=== PATIENT | female | born 1950 | race Caucasian/White ===

== ENCOUNTER 2016-07-13 06:11 | Inpatient (IN) | payer OTHER ==
[~2016-07-13] VITALS: Ht 152.4 cm; Wt 75.0 kg
[~2016-07-13 06:11] MED LIST: ANT PO; GLCSR/500 PO; LISI20TA55 PO; NEPA0.6D; OFLO0.3S4 OPL; OMEP20CA9 PO; PRED1SUS3
[2016-07-13] MEDS ORDERED: SODIUM CHLORIDE 0.9% 1000ML 1,000 ML IV ONE (06:42)
[2016-07-13] MEDS ORDERED: ONDANSETRON INJ 2 MG/ML 2 ML VIAL IV STA (06:42)
[2016-07-13] MEDS ORDERED: SODIUM CHLORIDE 0.9% 1000ML 1,000 ML IV STA (06:42)
[2016-07-13] MEDS ORDERED: MoRPHine SULFATE 2 MG/ML CARP IV STA ×2 (06:42→09:03)
[2016-07-13] MEDS ORDERED: AFLI2INJ OP (06:56)
[2016-07-13] MEDS ORDERED: LISI40TA PO (06:56)
[2016-07-13] MEDS ORDERED: ATOR-24 PO (06:56)
[2016-07-13] MEDS ORDERED: GLIP2.5T11 PO (06:56)
--- NOTE | 2016-07-13 06:59 | EMERGENCY ROOM VISIT NOTE ---
History Report prepared by Sandra: Rosina Lemons Under the Supervision of: Dr. Anam Martel M.D. First contact with patient: 06:30 Chief Complaint: ABDOMINAL PAIN Stated Complaint: SEVERE ABDOMINAL PAIN,VOMITING,GALL STONES? History of Present Illness The patient is a 65 year old female who presents to the Emergency Room with complaints of persistent abdominal pain starting last night. The pain is present in the center of her abdomen. She rates her discomfort as a 10/10 in severity. She is nauseous and vomited 4-5 times last night which she states had a bad taste. She had some diarrhea, but mentions that her medications often cause loose stools. She reports chills. She denies any chest pain, SOB, fever, pain or swelling in the legs, or urinary symptoms. She denies any recent falls or trauma. She has had gallbladder issues before and believes her symptoms might be due to her gallbladder. She denies alcohol use. She has had a hysterectomy. She denies having had any other abdominal surgeries. She still has her appendix. Denies back pain. Source of History: patient, family Onset: last night Position: abdomen (epigastric) Symptom Intensity: 10/10 Timing: other (persistent) Associated Symptoms: + diarrhea, + nausea, + vomiting, No SOB, No chest pain , No fevers, No urinary symptoms Note: Pt denies pain or swelling in the legs. Review of Systems See HPI for pertinent positives & negatives. A total of 10 systems reviewed and were otherwise negative. Past Medical & Surgical Medical Problems: (1) DM type 2 (diabetes mellitus, type 2) (2) Dyslipidemia (3) HTN (hypertension) (4) Pyelonephritis Surgical Problems: (1) History of abdominal hysterectomy (2) History of cataract surgery (3) History of hysterectomy Old medical records were reviewed. Nurse's notes were reviewed and I agree with. Family History Diabetes mellitus Gallbladder disease Heart disease Hypertension Social History Smoking Status: Never Smoker Alcohol Use: none Drug Use: none Housing Status: lives with family Occupation Status: retired Current/Historical Medications Scheduled Amlodipine Besylate (Amlodipine Besylate), 2.5 MG PO DAILY Atorvastatin (Lipitor), 40 MG PO DAILY Glipizide (Glipizide Er), 1 TAB PO DAILY Lisinopril (Zestril), 40 MG PO QAM Metformin HCl (Metformin HCl ER), 500 MG PO HS Travoprost (Travatan Z), 1 DROPS OP HS Allergies Coded Allergies: BEE STING (Verified Allergy, Unknown, SWELLING, 07/13/16) Sulfa Antibiotics (Verified Allergy, Unknown, From a b/p med (told never take sulfa), RASH, 07/13/16) Physical Exam Vital Signs Date Time Temp Pulse Resp B/P Pulse Ox O2 Delivery O2 Flow Rate FiO2 07/13/16 09:10 96 Room Air 07/13/16 08:58 88 16 161/74 96 07/13/16 08:02 92 22 172/77 92 Room Air 07/13/16 07:20 92 12 173/78 96 Room Air 07/13/16 06:56 92 07/13/16 06:14 36.9 86 20 159/75 97 Room Air Physical Exam General: Older female. Well developed well nourished in no acute distress, breathing comfortably on room air. Normal speech HEENT: Normal cephalic atraumatic. Pupils are equal round and reactive to light. Extraocular movements are intact. Oropharynx is pink with moist mucous membranes. No swelling of the mouth lips or tongue. Neck: Supple with a midline trachea. No meningeal signs or stiffness, no JVD or bruits. No Stridor. Chest: Clear to auscultation bilaterally. No wheezes or rhonchi. No increased work of breathing. Heart: regular rate and rhythm. Abdomen: Soft, nondistended without rebound guarding or rigidity. Minimally tender in the epigastric area. Extremities: No cyanosis clubbing or edema. No calf tenderness or assymetry Spine/Back. Non tender to palpation. No CVA tenderness Skin: Good turgor without rashes. Neurologic exam: Cranial nerves two through 12 are intact. Motor and sensation are intact and symmetrical throughout. Medical Decision & Procedures ER Provider Diagnostic Interpretation: Radiology results as stated below per my review and radiologist interpretation: ABDOMEN AND PELVIS CT WITHOUT CONTRAST CT DOSE: 405.34 mGy.cm HISTORY: Abdominal pain. Vomiting. TECHNIQUE: Multiaxial CT images of the abdomen and pelvis were performed without contrast. COMPARISON STUDY: Abdomen and pelvis CT 12/29/2014. FINDINGS: Mild dependent changes seen within the left lung base. No pneumoperitoneum. No pneumatosis. Multiple small gallstones. The unenhanced liver, spleen, adrenal glands, pancreas are unremarkable. No significant retroperitoneal lymphadenopathy. Normal right kidney. The bladder is unremarkable. No renal stones. Mild left hydronephrosis. There is extensive left perinephric fat stranding/edema. Suboptimal evaluation for bowel pathology due to the lack of intravenous and oral contrast. However, there is no definite bowel wall thickening or obstruction. IMPRESSION: 1. Extensive left perinephric fat stranding/edema with associated mild left hydronephrosis. There are no renal or ureteral stones identified. There are no bladder stones. Therefore, this could be due to a pyelonephritis, recently passed stone, or an occult obstructing lesion. 2. Normal right kidney. 3. Suboptimal evaluation for bowel pathology due to the lack of intravenous and oral contrast. However, there is no definite bowel wall thickening or obstruction. 4. Cholelithiasis. Electronically signed by: Federico Medellin M.D. 07/13/2016 8:17 AM Dictated Date/Time: 07/13/2016 8:11 AM Right upper quadrant ultrasound GALLBLADDER-ABD LIMITED CLINICAL HISTORY: eval for GB disease nausea. Vomiting. TECHNIQUE: Ultrasound COMPARISON STUDY: 12/29/2014 FINDINGS: Trace gallbladder sludge. No shadowing gallstones. Gallbladder wall 2 mm. Common bile duct 4 mm. Liver and pancreas are uniform. Right kidney is negative for hydronephrosis. IMPRESSION: Small amount of gallbladder sludge. Normal caliber bile duct. Otherwise negative study. Electronically signed by: Sergio Watkins M.D. 07/13/2016 9:55 AM Dictated Date/Time: 07/13/2016 9:50 AM Laboratory Results Test 07/13/16 06:03 07/13/16 06:30 07/13/16 07:11 Immature Granulocyte % (Auto) 0.3 % White Blood Count 15.94 K/uL (4.8-10.8) Red Blood Count 3.84 M/uL (4.2-5.4) Hemoglobin 11.0 g/dL (12.0-16.0) Hematocrit 32.3 % (37-47) Mean Corpuscular Volume 84.1 fL (80-100) Mean Corpuscular Hemoglobin 28.6 pg (25-34) Mean Corpuscular Hemoglobin Concent 34.1 g/dl (32-36) Platelet Count 227 K/uL (130-400) Mean Platelet Volume 9.0 fL (7.4-10.4) Neutrophils (%) (Auto) 89.4 % Lymphocytes (%) (Auto) 4.2 % Monocytes (%) (Auto) 6.0 % Eosinophils (%) (Auto) 0.0 % Basophils (%) (Auto) 0.1 % Neutrophils # (Auto) 14.26 K/uL (1.4-6.5) Lymphocytes # (Auto) 0.67 K/uL (1.2-3.4) Monocytes # (Auto) 0.95 K/uL (0.11-0.59) Eosinophils # (Auto) 0.00 K/uL (0-0.5) Basophils # (Auto) 0.02 K/uL (0-0.2) Immature Granulocyte # (Auto) 0.04 K/uL (0.00-0.02) Urine Color YELLOW Urine Appearance CLOUDY (CLEAR) Urine pH 5.5 (4.5-7.5) Urine Specific [place] 1.016 (1.000-1.030) Urine Protein TRACE (NEG) Urine Glucose (UA) 1+ (NEG) Urine Ketones 2+ (NEG) Urine Occult Blood 2+ (NEG) Urine Nitrite NEG (NEG) Urine Bilirubin NEG (NEG) Urine Urobilinogen NEG (NEG) Urine Leukocyte Esterase MODERATE (NEG) Urine WBC (Auto) >30 /hpf (0-5) Urine RBC (Auto) 10-30 /hpf (0-4) Urine Hyaline Casts (Auto) 1-5 /lpf (0-5) Urine Epithelial Cells (Auto) >30 /lpf (0-5) Urine Bacteria (Auto) 4+ (NEG) Total Bilirubin 0.5 mg/dl (0.2-1) Direct Bilirubin 0.2 mg/dl (0-0.2) Aspartate Amino Transf (AST/SGOT) 15 U/L (15-37) Alanine Aminotransferase (ALT/SGPT) 18 U/L (12-78) Alkaline Phosphatase 75 U/L (45-117) Total Protein 7.8 gm/dl (6.4-8.2) Albumin 3.7 gm/dl (3.4-5.0) Lipase 303 U/L (73-393) Bedside Troponin I 0.000 ng/ml (0-0.045) Laboratory studies as stated above per my review. Medications Administered Medications (Trade) Dose Ordered Sig/Hollis Route Start Time Stop Time Status Last Admin Dose Admin Sodium Chloride 1,000 ml @ 999 mls/hr Q1H1M STAT IV 07/13/16 06:42 07/13/16 07:42 DC 07/13/16 07:06 999 MLS/HR Sodium Chloride (Nss 1000ml) 1,000 ml @ 150 mls/hr Q6H40M ONCE IV 07/13/16 06:42 07/13/16 11:29 DC 07/13/16 07:07 150 MLS/HR Ondansetron HCl (Zofran Inj) 4 mg NOW STAT IV 07/13/16 06:42 07/13/16 06:45 DC 07/13/16 07:08 4 MG Morphine Sulfate (MoRPHine SULFATE INJ) 2 mg NOW STAT IV 07/13/16 06:42 07/13/16 06:45 DC 07/13/16 07:08 2 MG Levofloxacin (Levaquin / D5W) 750 mg NOW STAT IV 07/13/16 08:33 07/13/16 08:36 DC 07/13/16 10:50 750 MG Morphine Sulfate (MoRPHine SULFATE INJ) 2 mg NOW STAT IV 07/13/16 09:03 07/13/16 09:04 DC 07/13/16 09:11 2 MG ECG Indication: abdominal pain Rate (beats per minute): 87 Rhythm: normal sinus Findings: no acute ischemic change, no ectopy Comparison ECG Date: Change: no significant change ED Course 0632: Past medical records reviewed. The patient was evaluated in room A3, and a complete history and physical examination were performed. 0642: Morphine Sulfate 2 mg IV, Zofran Inj 4 mg IV, NSS 1000 ml @ 150 mls/hr IV , NSS 1000 ml @ 999 mls/hr IV. 0714: Upon reevaluation, the patient is resting comfortably. 0757: I reevaluated the patient. She is resting comfortably. 0830: I reevaluated the patient. She is resting comfortably. I discussed the results and treatment plan with the patient. She verbalized agreement of the treatment plan. The patient will be evaluated for further management. 0833: Levofloxacin 750 mg IV. 0846: I discussed the patient's case with MODESTO Rose - internal medicine. The patient will be evaluated for further management. 0903: Morphine Sulfate 2 mg IV. Medical Decision Differential diagnoses: gallbladder disease, cardiac disease, viral illness, infection, electrolyte or metabolic abnormality. This patient comes in as described above. She was placed in room A3. She is here for treatment and evaluation of epigastric abdominal pain and nausea vomiting and diarrhea. She has a history of gallstones according to the patient. IV access established EKG was obtained and multiple blood tests was obtained. She was hydrated with IV normal saline. She was given Zofran 4 mg IV and morphine IV as well. She was reassessed frequently. EKG does not suggest acute coronary syndrome or ischemia. Troponin is normal. White count is moderately elevated. She is mildly anemic. BUN and creatinine are also mild to moderately elevated compared to baseline. Some this may be prerenal/ dehydration. I did a CAT scan of her abdomen and pelvis. She has hydronephrosis of the left kidney. There is no stone seen and could be related to past stone or an infection. In light of this, she was given IV antibiotics and IV hydration. I do think she needs to be admitted BUN and creatinine are mildly elevated and she also has a white count. I went back and reassessed her and she has no flank tenderness when I tap on her kidney and she has minimal to none urinary symptoms. She is feeling much better but given her symptoms I do think she needs to be admitted blood and urine cultures have been obtained. I did consult the [facility] hospitalist and she will be admitted for further treatment and evaluation Consults Time Called: 0832 Consulting Physician: Ani Jacobo PA-C [facility] - internal medicine Returned Call: [phone] I discussed the patient's case with her. The patient will be evaluated for further management. Impression Primary Impression: Pyelonephritis Scribe Attestation The scribe's documentation has been prepared under my direction and personally reviewed by me in its entirety. I confirm that the note above accurately reflects all work, treatment, procedures, and medical decision making performed by me. Departure Information Dispostion Being Evaluated By Hospitalist Ghislaine Palomo D.O. (PCP) Patient Instructions My [facility]
[2016-07-13 07:01] LABS: BASO % 0.1 %; BASO ABS # 0.02 K/uL (0-0.2); COMPLETE YES; HEMATOCRIT 32.3 % (37-47); IG% 0.3 %; LYMPH % 4.2 %; LYMPH ABS # 0.67 K/uL (1.2-3.4); MEAN CELL VOLUME 84.1 fL (80-100); MEAN CORPUSCULAR HEMOGLOBIN 28.6 pg (25-34); MEAN CORPUSCULAR HGB CONC 34.1 g/dl (32-36); NEUT % 89.4 %; PLATELET COUNT 227 K/uL (130-400); RED BLOOD COUNT 3.84 M/uL (4.2-5.4); WHITE BLOOD COUNT 15.94 K/uL (4.8-10.8)
[2016-07-13 07:02] LABS: BUN/CREATININE RATIO 21.5 (10-20); CREATININE 1.8 mg/dl (0.60-1.20)
[2016-07-13 08:11] LABS: URINE APPEARANCE CLOUDY (CLEAR); URINE BILIRUBIN NEG (NEG); URINE COLOR YELLOW; URINE EPITHELIAL CELL AUTO >30 /lpf (0-5); URINE NITRITE NEG (NEG); URINE PH 5.5 (4.5-7.5); URINE SPECIFIC GRAVITY 1.016 (1.000-1.030); UROBILINOGEN NEG (NEG)
--- NOTE | 2016-07-13 08:19 | DIAGNOSTIC IMAGING REPORT ---
ABDOMEN AND PELVIS CT WITHOUT CONTRAST CT DOSE: 405.34 mGy.cm HISTORY: Abdominal pain. Vomiting. TECHNIQUE: Multiaxial CT images of the abdomen and pelvis were performed without contrast. COMPARISON STUDY: Abdomen and pelvis CT 12/29/2014. FINDINGS: Mild dependent changes seen within the left lung base. No pneumoperitoneum. No pneumatosis. Multiple small gallstones. The unenhanced liver, spleen, adrenal glands, pancreas are unremarkable. No significant retroperitoneal lymphadenopathy. Normal right kidney. The bladder is unremarkable. No renal stones. Mild left hydronephrosis. There is extensive left perinephric fat stranding/edema. Suboptimal evaluation for bowel pathology due to the lack of intravenous and oral contrast. However, there is no definite bowel wall thickening or obstruction. IMPRESSION: 1. Extensive left perinephric fat stranding/edema with associated mild left hydronephrosis. There are no renal or ureteral stones identified. There are no bladder stones. Therefore, this could be due to a pyelonephritis, recently passed stone, or an occult obstructing lesion. 2. Normal right kidney. 3. Suboptimal evaluation for bowel pathology due to the lack of intravenous and oral contrast. However, there is no definite bowel wall thickening or obstruction. 4. Cholelithiasis. Electronically signed by: Federico Medellin M.D. 07/13/2016 8:17 AM Dictated Date/Time: 07/13/2016 8:11 AM
[2016-07-13 08:20] LABS: MANUAL MICROSCOPIC REQUIRED? NO; REVIEW REQ? NO
[2016-07-13] MEDS ORDERED: LEVAQUIN 750MG / 150ML D5W IV STA (08:33)
[2016-07-13 09:10] VITALS: O2SAT 96; Ht 152.4 cm; Wt 75.0 kg
[2016-07-13] MEDS ORDERED: NRV5 PO (09:50)
[2016-07-13] MEDS ORDERED: TRAV0.00 OP (09:50)
--- NOTE | 2016-07-13 09:57 | DIAGNOSTIC IMAGING REPORT ---
Right upper quadrant ultrasound GALLBLADDER-ABD LIMITED CLINICAL HISTORY: eval for GB disease nausea. Vomiting. TECHNIQUE: Ultrasound COMPARISON STUDY: 12/29/2014 FINDINGS: Trace gallbladder sludge. No shadowing gallstones. Gallbladder wall 2 mm. Common bile duct 4 mm. Liver and pancreas are uniform. Right kidney is negative for hydronephrosis. IMPRESSION: Small amount of gallbladder sludge. Normal caliber bile duct. Otherwise negative study. Electronically signed by: Sergio Watkins M.D. 07/13/2016 9:55 AM Dictated Date/Time: 07/13/2016 9:50 AM
[2016-07-13] MEDS: SODIUM CHLORIDE 0.9% 1000ML 1,000 ML IV SCH ×2 (10:00→15:17)
[2016-07-13] MEDS ORDERED: GLUCOSE 40% GEL 15 GM TUBE PO PRN (10:00)
[2016-07-13] MEDS ORDERED: GLUCAGON FOR INJ 1 MG VIAL SQ PRN (10:00)
[2016-07-13] MEDS ORDERED: GLUCOSE 10 TABS/TUBE PO PRN (10:00)
[2016-07-13] MEDS ORDERED: DEXTROSE 50% 50 ML SYR IV PRN (10:00)
[2016-07-13] MEDS ORDERED: LEVAQUIN~CONSULT PHARMACY PRN (10:20)
[2016-07-13 10:32] VITALS: BP 150/70; PULSE 87; TEMP 37.2; O2SAT 96
[2016-07-13] MEDS ORDERED: AMLODIPINE BESYLATE 5 MG TAB PO ONE (10:51)
[2016-07-13] MEDS: INSULIN ASPART 100 UNITS/ML 3 ML PEN SC SCH ×3 (11:00→21:33)
[2016-07-13] MEDS ORDERED: HydrALAZINE HCL 20 MG/ML VIAL IV. PRN (11:00)
--- NOTE | 2016-07-13 11:59 | History and Physical ---
History & Physical Date & Time of Service: Jul 13, 2016 at 10:55 Chief Complaint: Nausea, Vomiting, Diarrhea, Abdominal Pain Primary Care Physician: Ghislaine Hernandez D.O. History of Present Illness 65 year old female who presents to the ER with nausea, vomiting, diarrhea, and abdominal pain. Patient reports her symptoms her symptoms began last evening around 11pm. She reports she was woken from sleep. She had multiple episodes of vomiting and diarrhea. She denies hematemesis, coffee ground emesis, BRBRPR, or dark tarry stools. She reports developing mid and lower abdominal pain after multiple episodes of vomiting. She describes the pain as an ache. Pain is improved now. Patient reports feeling chilled but did not take her temperature and is afebrile in the ED. She denies back or flank pain. No dysuria or hematuria. She reports mild lightheadedness with standing, denies dizziness and syncopal events. No chest pain or shortness of breath. In the ER, patient WBC 15K, creat 1.8, U/A suggests UTI. HR is mildly tachycardic in the low 90s. BP is stable. CT was obtained that shows extensive left perinephric fat stranding/ edema with associated mild left hydronephrosis; could be due to a pyelonephritis , recently passed stone, or an occult obstructing lesion. Gallbladder US shows a small amount of gallbladder sludge, no evidence for acute cholecystitis. Patient was given IVF, Levaquin, morphine, and Zofran. Past Medical/Surgical History Medical Problems: (1) DM type 2 (diabetes mellitus, type 2) Status: Chronic (2) Dyslipidemia Status: Chronic (3) HTN (hypertension) Status: Chronic (4) Pyelonephritis Status: Resolved Surgical Problems: (1) History of abdominal hysterectomy Status: Resolved (2) History of cataract surgery Status: Chronic (3) History of hysterectomy Status: Chronic Social History Smoking Status: Never Smoker Drug Use: none Immunizations History of Influenza Vaccine: Yes Influenza Vaccine Date: Dec 28, 2015 History of Tetanus Vaccine?: Yes Tetanus Immunization Date: Jul 17, 2014 History of Pneumococcal: Yes Pneumococcal Date: Aug 06, 2014 Multi-Drug Resistant Organisms History of MDRO: No Allergies Coded Allergies: BEE STING (Verified Allergy, Unknown, SWELLING, 07/13/16) Sulfa Antibiotics (Verified Allergy, Unknown, From a b/p med (told never take sulfa), RASH, 07/13/16) Home Medications Scheduled Amlodipine Besylate (Amlodipine Besylate), 2.5 MG PO DAILY Atorvastatin (Lipitor), 40 MG PO DAILY Glipizide (Glipizide Er), 1 TAB PO DAILY Lisinopril (Zestril), 40 MG PO QAM Metformin HCl (Metformin HCl ER), 500 MG PO HS Travoprost (Travatan Z), 1 DROPS OP HS Review of Systems 10 point review of systems was completed with the pertinent positives and negatives noted per the HPI Physical Exam Vital Signs Date Time Temp Pulse Resp B/P Pulse Ox O2 Delivery O2 Flow Rate FiO2 07/13/16 09:10 96 Room Air 07/13/16 08:58 88 16 161/74 96 07/13/16 08:02 92 22 172/77 92 Room Air 07/13/16 07:20 92 12 173/78 96 Room Air 07/13/16 06:56 92 07/13/16 06:14 36.9 86 20 159/75 97 Room Air General Appearance: no apparent distress Head: normocephalic Eyes: normal inspection ENT: hearing grossly normal Neck: supple, no JVD Respiratory/Chest: lungs clear, normal breath sounds, no respiratory distress Cardiovascular: regular rate, rhythm, no edema, normal peripheral pulses Abdomen/GI: normal bowel sounds, soft, + tenderness (epigastric, LLQ ) Back: no CVA tenderness Extremities/Musculoskelatal: normal inspection, no calf tenderness Neurologic/Psych: no motor/sensory deficits, alert, normal mood/affect, oriented x 3 Skin: normal color, warm/dry Diagnostics Laboratory Results Results Past 24 Hours Test 07/13/16 06:03 07/13/16 06:30 07/13/16 07:11 07/13/16 09:44 Range/Units White Blood Count 15.94 4.8-10.8 K/uL Red Blood Count 3.84 4.2-5.4 M/uL Hemoglobin 11.0 12.0-16.0 g/dL Hematocrit 32.3 37-47 % Mean Corpuscular Volume 84.1 80-100 fL Mean Corpuscular Hemoglobin 28.6 25-34 pg Mean Corpuscular Hemoglobin Concent 34.1 32-36 g/dl Platelet Count 227 130-400 K/uL Mean Platelet Volume 9.0 7.4-10.4 fL Neutrophils (%) (Auto) 89.4 % Lymphocytes (%) (Auto) 4.2 % Monocytes (%) (Auto) 6.0 % Eosinophils (%) (Auto) 0.0 % Basophils (%) (Auto) 0.1 % Neutrophils # (Auto) 14.26 1.4-6.5 K/uL Lymphocytes # (Auto) 0.67 1.2-3.4 K/uL Monocytes # (Auto) 0.95 0.11-0.59 K/uL Eosinophils # (Auto) 0.00 0-0.5 K/uL Basophils # (Auto) 0.02 0-0.2 K/uL RDW Standard Deviation 40.5 36.4-46.3 fL RDW Coefficient of Variation 13.3 11.5-14.5 % Immature Granulocyte % (Auto) 0.3 % Immature Granulocyte # (Auto) 0.04 0.00-0.02 K/uL Urine Color YELLOW Urine Appearance CLOUDY CLEAR Urine pH 5.5 4.5-7.5 Urine Specific [place] 1.016 1.000-1.030 Urine Protein TRACE NEG Urine Glucose (UA) 1+ NEG Urine Ketones 2+ NEG Urine Occult Blood 2+ NEG Urine Nitrite NEG NEG Urine Bilirubin NEG NEG Urine Urobilinogen NEG NEG Urine Leukocyte Esterase MODERATE NEG Urine WBC (Auto) >30 0-5 /hpf Urine RBC (Auto) 10-30 0-4 /hpf Urine Hyaline Casts (Auto) 1-5 0-5 /lpf Urine Epithelial Cells (Auto) >30 0-5 /lpf Urine Bacteria (Auto) 4+ NEG Sodium Level 141 136-145 mmol/L Potassium Level 4.0 3.5-5.1 mmol/L Chloride Level 107 98-107 mmol/L Carbon Dioxide Level 25 21-32 mmol/L Anion Gap 9.0 3-11 mmol/L Blood Urea Nitrogen 39 7-18 mg/dl Creatinine 1.80 0.60-1.20 mg/dl Est Creatinine Clear Calc Drug Dose 28.6 ml/min Estimated GFR () 33.9 Estimated GFR (Non- 29.2 BUN/Creatinine Ratio 21.5 10-20 Random Glucose 242 70-99 mg/dl Calcium Level 9.0 8.5-10.1 mg/dl Total Bilirubin 0.5 0.2-1 mg/dl Direct Bilirubin 0.2 0-0.2 mg/dl Aspartate Amino Transf (AST/SGOT) 15 15-37 U/L Alanine Aminotransferase (ALT/SGPT) 18 12-78 U/L Alkaline Phosphatase 75 45-117 U/L Total Protein 7.8 6.4-8.2 gm/dl Albumin 3.7 3.4-5.0 gm/dl Lipase 303 73-393 U/L Bedside Troponin I 0.000 0-0.045 ng/ml Microbiology Results 07/13/16 Blood Culture, Received Pending 07/13/16 Blood Culture, Received Pending 07/13/16 Urine Culture, Received Pending Diagnostic Radiology CT ABD/PELVIS IMPRESSION: 1. Extensive left perinephric fat stranding/edema with associated mild left hydronephrosis. There are no renal or ureteral stones identified. There are no bladder stones. Therefore, this could be due to a pyelonephritis, recently passed stone, or an occult obstructing lesion. 2. Normal right kidney. 3. Suboptimal evaluation for bowel pathology due to the lack of intravenous and oral contrast. However, there is no definite bowel wall thickening or obstruction. 4. Cholelithiasis. GALLBLADDER US IMPRESSION: Small amount of gallbladder sludge. Normal caliber bile duct. Otherwise negative study. Impression Assessment and Plan PYELONEPHRITIS, POSSIBLE EARLY SEPSIS NAUSEA, VOMITING, DIARRHEA - admit to med/surg - patient presenting with nausea, vomiting, and diarrhea followed by abdominal pain; on CT abd/pelvis found to have extensive left perinephric fat stranding/ edema with associated mild left hydronephrosis, no renal, ureteral, or bladder stones identified - ? due to a pyelonephritis, recently passed stone, or an occult obstructing lesion. - will obtain renal US to evaluate for lesion; microscopic hematuria noted - could be due to infection - gallbladder US shows small amount of sludge - no acute cholecystitis; patient reports she was scheduled for cholecystectomy in the past however had to cancel due to other procedures - recommend outpatient follow up - U/A suggesting UTI - in the ER - WBC 15K, mild tachycardia with HR in the low 90s, BP stable; lactate pending - s/p Levaquin in the ER, will continue with - urine and blood cultures OMAR - baseline creat 0.9 -> 1.8 today - likely prerenal due to GI loss from vomiting and diarrhea - IVF, hold ACEi - follow up labs in AM HTN - BP elevated, however patient did not her meds this AM - was recently prescribed Norvasc by PCP however patient did start - due to OMAR, will hold ACEi and start Norvasc - PRN hydralazine DM - hgb a1c 5.9 06/2016 - holding oral agents and utilizing SSI while hospitalized DVT PROPHYLAXIS - SCDs due to microscopic hematuria DISPO - In my clinical judgment this beneficiary meets acute admission criteria, established by [facility], that includes being hospitalized through two midnights. Attending Addendum: The patient was seen and examined Admitted with Pyelonephritis Complains of severe pain in left Renal angle,Loin that goes to the groin Has chills O/E Hemodynamically stable Chest-clear to auscultate bilaterally Heart-Regular Abdomen-soft,tender left renal Angle and left lower Quadrant Labs and Imaging studies were reviewed Has increase WCC ,Blood and Urine C/S sent Levaquin on board Agree with the assessment and plan Dr Amita Bosch Advanced Directives Existing Living Will: Yes Existing Power of Controls Engineer: No VTE Prophylaxis VTE Risk Assessment Done? Y/N: Yes Risk Level: Moderate
[2016-07-13] MEDS: ONDANSETRON INJ 2 MG/ML 2 ML VIAL IV PRN (13:03)
[2016-07-13 14:51] VITALS: BP 168/72; PULSE 93; TEMP 37.1; O2SAT 95
--- NOTE | 2016-07-13 15:19 | DIAGNOSTIC IMAGING REPORT ---
RENAL ULTRASOUND CLINICAL HISTORY: Severe abdominal pain. Follow-up to CT findings. COMPARISON STUDY: CT of the abdomen and pelvis July 13, 2016. TECHNIQUE: Sonography of the kidneys and the urinary bladder was performed. FINDINGS: The right kidney measures 10.4 x 4.1 x 4.6 cm and the left measures 12.3 x 6.2 x 6.2 cm. There is no right hydronephrosis. Mild left hydronephrosis is unchanged since CT from earlier today. There is dilatation of the left ureter to the level of the ureterovesical junction. Dilatation of the distal left ureter likely reflects a new finding since CT from earlier today. There are low level internal echoes within the distal left ureter. There may be a small left sided ureterocele. No calculus is identified by sonography. IMPRESSION: Mild left hydroureteronephrosis with dilatation of the left ureter to the level of the ureterovesical junction. No ureteral calculus identified. Low-level echoes within the distal left ureter could reflect artifact or debris. Equivocal small left-sided ureterocele. The etiology for the obstruction remains unclear and could be due to a recently passed calculus, an infectious process or occult lesion. Electronically signed by: Abraham Berry M.D. 07/13/2016 3:17 PM Dictated Date/Time: 07/13/2016 3:11 PM
[2016-07-13] MEDS: ACETAMINOPHEN 325 MG TAB PO PRN ×2 (15:20→21:35)
[2016-07-13] MEDS ORDERED: HYDROmorphone INJ 1 MG/ML SYR IV PRN (15:45)
[2016-07-13] MEDS: TRAVOPROST Z 0.004% OPH SOLN 2.5 ML BTL OP SCH (21:32)
[2016-07-13 23:27] VITALS: BP 138/82; PULSE 72; TEMP 36.9; O2SAT 94
[2016-07-13 23:28] VITALS: BP 99/61; PULSE 78; TEMP 37; O2SAT 97
[2016-07-14] MEDS: SODIUM CHLORIDE 0.9% 1000ML 1,000 ML IV SCH ×3 (01:08→20:39)
[2016-07-14 01:54] VITALS: BP 110/62; PULSE 76; TEMP 36.7
[2016-07-14] MEDS ORDERED: PIPERACILL/TAZOBAC IV 3.375 GM in DEXTROSE 5% 100ML 100 ML IV SCH (02:00)
[2016-07-14] MEDS ORDERED: PIPERACILL/TAZOBAC IV 3.375 GM in DEXTROSE 5% 100ML IV ONE (02:15)
[2016-07-14] MEDS ORDERED: PIPERACILL/TAZOBAC CONSULT ACTIVE PRN (02:15)
[2016-07-14] MEDS: PIPERACILL/TAZOBAC IV 3.375 GM in DEXTROSE 5% 100ML IV SCH ×3 (06:19→22:01)
[2016-07-14 07:00] LABS: HEMATOCRIT 29.7 % (37-47); MEAN CELL VOLUME 84.6 fL (80-100); MEAN CORPUSCULAR HEMOGLOBIN 28.5 pg (25-34); MEAN CORPUSCULAR HGB CONC 33.7 g/dl (32-36); MEAN PLATELET VOLUME 9.1 fL (7.4-10.4); PLATELET COUNT 174 K/uL (130-400); RED BLOOD COUNT 3.51 M/uL (4.2-5.4); WHITE BLOOD COUNT 15.08 K/uL (4.8-10.8)
[2016-07-14 07:36] LABS: BUN/CREATININE RATIO 19.8 (10-20); CALCIUM 7.8 mg/dl (8.5-10.1); CREATININE 1.7 mg/dl (0.60-1.20); POTASSIUM 3.7 mmol/L (3.5-5.1)
[2016-07-14 07:56] VITALS: BP 115/68; PULSE 74; TEMP 38.2; O2SAT 96
[2016-07-14] MEDS: ACETAMINOPHEN 325 MG TAB PO PRN ×2 (08:24→19:33)
[2016-07-14] MEDS: AMLODIPINE BESYLATE 5 MG TAB PO SCH (08:26)
[2016-07-14] MEDS: ONDANSETRON INJ 2 MG/ML 2 ML VIAL IV PRN ×2 (08:30→17:08)
[2016-07-14] MEDS: INSULIN ASPART 100 UNITS/ML 3 ML PEN SC SCH ×4 (08:36→20:31)
[2016-07-14] MEDS ORDERED: ATORVASTATIN 40 MG TAB PO SCH (09:00)
[2016-07-14 10:07] VITALS: O2SAT 96
--- NOTE | 2016-07-14 12:05 | Medical Consult ---
Consultation Date of Consultation: Jul 14, 2016. Attending Physician: Karime Bosch M.D. 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 She states that she has history of gallbladder attacks because she has gallbladder sludge and stones, so she initially thought she may be having problems with her gallbladder. On admission, her WBC was 15.94 and her creatinine was 1.80. LFTS were within normal with AST of 15 and ALT of 18. Alk phos was 75. Blood and urine cultures are growing GNB. The patient states that she has history of 2 UTI's in the past but none recently. She denies SOB, cough , chest pain, or urinary symptoms. 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 She states that she has been getting some loose bowels on and off due to her Metformin. She is currently on IV Zosyn. I did discuss this patient with Dr. Bosch as well. Past Medical/Surgical History Medical Problems: (1) DM type 2 (diabetes mellitus, type 2) (2) Dyslipidemia (3) HTN (hypertension) (4) Pyelonephritis Surgical Problems: (1) History of abdominal hysterectomy (2) History of cataract surgery (3) History of hysterectomy Family History Diabetes mellitus MOTHER Noncontributory Social History Smoking Status: Never Smoker Drug Use: none Housing Status: lives with family Allergies Coded Allergies: BEE STING (Verified Allergy, Unknown, SWELLING, 07/13/16) Sulfa Antibiotics (Verified Allergy, Unknown, From a b/p med (told never take sulfa), RASH, 07/13/16) Home Medications Reported Home Medications Medications Dose Route/Sig Max Daily Dose Days Date Category Dose Instructions Travatan Z (Travoprost) 0.004 % Augie 1 Drops OP HS 07/13/16 Reported Amlodipine Besylate 5 Mg Tab 2.5 Mg PO DAILY 07/13/16 Reported patient has not started taking yet Lipitor (Atorvastatin Calcium) 40 Mg Tab 40 Mg PO DAILY 07/13/16 Reported Glipizide Er (Glipizide) 2.5 Mg Tab 1 Tab PO DAILY 07/13/16 Reported Zestril (Lisinopril) 40 Mg Tab 40 Mg PO QAM 07/13/16 Reported Metformin HCl ER (Metformin HCl) 500 Mg Tabcr 500 Mg PO HS 12/29/14 Reported Current Inpatient Medications Current Inpatient Medications Medications (Trade) Dose Ordered Sig/Hollis Route Start Time Stop Time Status Last Admin Dose Admin Acetaminophen (Tylenol Tab) 650 mg Q4H PRN PO 07/13/16 09:45 08/12/16 09:44 07/14/16 08:24 650 MG Ondansetron HCl (Zofran Inj) 4 mg Q6H PRN IV 07/13/16 09:45 08/12/16 09:44 07/14/16 08:30 4 MG Insulin Aspart (novoLOG ASPART) SLIDING SCALE If C... ACHS SC 07/13/16 11:00 08/12/16 10:59 07/14/16 08:36 2 UNITS Glucose (Glucose 40% Gel) 15-30 GRAMS 15 GRAMS... UD PRN PO 07/13/16 10:00 08/12/16 09:59 Glucose (Glucose Chew Tab) 4-8 Tablets 4 Tabl... UD PRN PO 07/13/16 10:00 08/12/16 09:59 Dextrose (Dextrose 50% 50ML Syringe) 25-50ML OF 50% DW IV FOR... UD PRN IV 07/13/16 10:00 08/12/16 09:59 Glucagon (Glucagon Inj) 1 mg UD PRN SQ 07/13/16 10:00 08/12/16 09:59 Amlodipine Besylate (Norvasc Tab) 2.5 mg DAILY PO 07/14/16 09:00 08/13/16 08:59 07/14/16 08:26 2.5 MG Travoprost (Travatan Z) 1 drops HS OP 07/13/16 21:00 08/12/16 20:59 07/13/16 21:32 1 DROPS Hydralazine HCl (HydrALAZINE INJ) 10 mg Q6H PRN IV. 07/13/16 11:00 08/12/16 10:59 Hydromorphone HCl 1 mg 1 mg Q6H PRN IV 07/13/16 15:45 07/27/16 15:44 07/13/16 17:33 1 MG Sodium Chloride 1,000 ml @ 100 mls/hr Q10H IV 07/14/16 11:00 08/13/16 10:59 Piperacillin Sod/ Tazobactam Sod/ Dextrose (Zosyn Iv/D5 100ml) 115 ml @ 28.75 mls/ hr Q8H IV 07/14/16 06:30 07/24/16 06:29 07/14/16 06:19 28.75 MLS/HR Piperacillin Sod/ Tazobactam Sod (Consult) 1 ea UD PRN N/A 07/14/16 02:15 08/13/16 02:14 Atorvastatin Calcium (Lipitor Tab) 40 mg HS PO 07/14/16 21:00 08/13/16 08:59 Review of Systems Constitutional: + chills, + fever (subjective) Eyes: No worsening of vision ENT: No hearing loss, No sore throat Respiratory: No cough, No shortness of breath Cardiovascular: No chest pain Abdomen: + diarrhea (all now resolved), + nausea, + pain, + vomiting Musculoskeletal: No joint pain Genitourinary - Female: No dysuria, No urinary frequency, No urinary urgency Integumentary: No itch, No rash Physical Exam Date Time Temp Pulse Resp B/P Pulse Ox O2 Delivery O2 Flow Rate FiO2 07/14/16 10:07 96 Room Air 07/14/16 07:56 38.2 74 16 115/68 96 Room Air 07/14/16 01:54 36.7 76 110/62 07/14/16 00:47 Room Air 07/13/16 23:28 37.0 78 18 99/61 97 Room Air 07/13/16 16:03 Room Air 07/13/16 14:51 37.1 93 22 168/72 95 Room Air General Appearance: WD/WN, no apparent distress Head: normocephalic, atraumatic Eyes: normal inspection, sclerae normal ENT: hearing grossly normal Neck: supple, trachea midline Respiratory/Chest: chest non-tender, normal breath sounds, no respiratory distress, no accessory muscle use, + crackles (very mild bilateral bases) Cardiovascular: regular rate, rhythm Abdomen/GI: normal bowel sounds, non tender, soft Back: normal inspection Extremities/Musculoskelatal: normal inspection, no pedal edema Neurologic/Psych: alert, normal mood/affect, oriented x 3 Skin: normal color, warm/dry, no rash Laboratory Results Item Value Date Time Blood Culture - Preliminary Resulted 07/13/16 0910 Blood Gram Negative Bacilli Blood Culture - Preliminary Resulted 07/13/16 0905 Blood Gram Negative Bacilli Urine Culture - Preliminary Resulted 07/13/16 0630 Urine , Clean Catch Gram Negative Bacilli Last 24 Hours Test 07/13/16 12:37 07/13/16 16:00 07/13/16 20:24 07/14/16 06:20 Lactic Acid Level 1.8 mmol/L Bedside Glucose 228 mg/dl 268 mg/dl White Blood Count 15.08 K/uL Red Blood Count 3.51 M/uL Hemoglobin 10.0 g/dL Hematocrit 29.7 % Mean Corpuscular Volume 84.6 fL Mean Corpuscular Hemoglobin 28.5 pg Mean Corpuscular Hemoglobin Concent 33.7 g/dl RDW Standard Deviation 41.9 fL RDW Coefficient of Variation 13.7 % Platelet Count 174 K/uL Mean Platelet Volume 9.1 fL Sodium Level 139 mmol/L Potassium Level 3.7 mmol/L Chloride Level 106 mmol/L Carbon Dioxide Level 23 mmol/L Anion Gap 10.0 mmol/L Blood Urea Nitrogen 34 mg/dl Creatinine 1.70 mg/dl Est Creatinine Clear Calc Drug Dose 30.2 ml/min Estimated GFR () 36.3 Estimated GFR (Non- 31.3 BUN/Creatinine Ratio 19.8 Random Glucose 138 mg/dl Calcium Level 7.8 mg/dl Test 07/14/16 07:24 07/14/16 11:33 Bedside Glucose 126 mg/dl 160 mg/dl Assessment & Plan Patient with GNB bacteremia and left-sided pyelonephritis. Cultures currently pending. She is on IV Zosyn which is appropriate pending culture results. Hopefully will be able to transition to PO Therapy when cultures are available. Patient will need to complete 14 days total due to bacteremia and pyelonephritis. Will also repeat blood cultures to ensure clearance. We will follow. Case reviewed and agree with above assessment.
--- NOTE | 2016-07-14 12:33 | Urology Consultation ---
History General Date of Service: Jul 14, 2016. Chief Complaint: left pyelonephritis Primary Care Physician: Ghislaine Hernandez D.O. Pt seen a urologist before?: No History of Present Illness I am asked by Dr Bosch to evaluate and treat patient for left pyelonephritis. She is admitted with left abd and flank pain nausea and emesis. She was dehydrated at admission with leukocytosis and acure rnal insufficiency. Her ct showed stranding and left hydro to the bladder suggestive of recently passed stone. Her ultrasound was suggestive of ureterocele. Patient had levaquin in ER yesterday. Today her leukocytosis and renal insufficiency are not improved. She has just developed a fever to 38C. Her pain has been managed with iv narcotics. She is developing hypotension, whereas yesterday she was hypertensive. Her blood and urine cultures are growing GNR. Imaging Imaging: CT, Ultrasound Laboratory Results Past 24 Hours Test 07/13/16 12:37 07/13/16 16:00 07/13/16 20:24 07/14/16 06:20 Range/Units Lactic Acid Level 1.8 0.4-2.0 mmol/L Bedside Glucose 228 268 70-90 mg/dl White Blood Count 15.08 4.8-10.8 K/uL Red Blood Count 3.51 4.2-5.4 M/uL Hemoglobin 10.0 12.0-16.0 g/dL Hematocrit 29.7 37-47 % Mean Corpuscular Volume 84.6 80-100 fL Mean Corpuscular Hemoglobin 28.5 25-34 pg Mean Corpuscular Hemoglobin Concent 33.7 32-36 g/dl RDW Standard Deviation 41.9 36.4-46.3 fL RDW Coefficient of Variation 13.7 11.5-14.5 % Platelet Count 174 130-400 K/uL Mean Platelet Volume 9.1 7.4-10.4 fL Sodium Level 139 136-145 mmol/L Potassium Level 3.7 3.5-5.1 mmol/L Chloride Level 106 98-107 mmol/L Carbon Dioxide Level 23 21-32 mmol/L Anion Gap 10.0 3-11 mmol/L Blood Urea Nitrogen 34 7-18 mg/dl Creatinine 1.70 0.60-1.20 mg/dl Est Creatinine Clear Calc Drug Dose 30.2 ml/min Estimated GFR () 36.3 Estimated GFR (Non- 31.3 BUN/Creatinine Ratio 19.8 10-20 Random Glucose 138 70-99 mg/dl Calcium Level 7.8 8.5-10.1 mg/dl Test 07/14/16 07:24 07/14/16 11:33 Range/Units Bedside Glucose 126 160 70-90 mg/dl Microbiology Results 07/14/16 Blood Culture, Tere Batch Pending 07/14/16 Blood Culture, Tere Batch Pending Labs were reviewed and are within normal limits unless listed below. Labs are available in the chart and at [facility] Past History diabetes, high cholesterol, hypertension Past Surgical History: hysterectomy, other (cataract ) Family History Diabetes mellitus MOTHER Social History Hx Tobacco Use In Past Year?: No Smoking: non-smoker Alcohol: never Drug use: none Marital status: Housing status: lives with family Occupation status: employed Immunizations History of Influenza Vaccine: Yes Influenza Vaccine Date: Dec 28, 2015 History of Tetanus Vaccine?: Yes Tetanus Immunization Date: Jul 17, 2014 History of Pneumococcal: Yes Pneumococcal Date: Aug 06, 2014 History of MDRO No Allergies Coded Allergies: BEE STING (Verified Allergy, Unknown, SWELLING, 07/13/16) Sulfa Antibiotics (Verified Allergy, Unknown, From a b/p med (told never take sulfa), RASH, 07/13/16) Medications Home Medications: Home Meds and Scripts Medications Dose Route/Sig Max Daily Dose Days Date Category Dose Instructions Travatan Z (Travoprost) 0.004 % Augie 1 Drops OP HS 07/13/16 Reported Amlodipine Besylate 5 Mg Tab 2.5 Mg PO DAILY 07/13/16 Reported patient has not started taking yet Lipitor (Atorvastatin Calcium) 40 Mg Tab 40 Mg PO DAILY 07/13/16 Reported Glipizide Er (Glipizide) 2.5 Mg Tab 1 Tab PO DAILY 07/13/16 Reported Zestril (Lisinopril) 40 Mg Tab 40 Mg PO QAM 07/13/16 Reported Metformin HCl ER (Metformin HCl) 500 Mg Tabcr 500 Mg PO HS 12/29/14 Reported Inpatient Medications: Current Inpatient Medications Medications (Trade) Dose Ordered Sig/Hollis Route Start Time Stop Time Status Last Admin Dose Admin Acetaminophen (Tylenol Tab) 650 mg Q4H PRN PO 07/13/16 09:45 08/12/16 09:44 07/14/16 08:24 650 MG Ondansetron HCl (Zofran Inj) 4 mg Q6H PRN IV 07/13/16 09:45 08/12/16 09:44 07/14/16 08:30 4 MG Insulin Aspart (novoLOG ASPART) SLIDING SCALE If C... ACHS SC 07/13/16 11:00 08/12/16 10:59 07/14/16 12:02 2 UNITS Glucose (Glucose 40% Gel) 15-30 GRAMS 15 GRAMS... UD PRN PO 07/13/16 10:00 08/12/16 09:59 Glucose (Glucose Chew Tab) 4-8 Tablets 4 Tabl... UD PRN PO 07/13/16 10:00 08/12/16 09:59 Dextrose (Dextrose 50% 50ML Syringe) 25-50ML OF 50% DW IV FOR... UD PRN IV 07/13/16 10:00 08/12/16 09:59 Glucagon (Glucagon Inj) 1 mg UD PRN SQ 07/13/16 10:00 08/12/16 09:59 Amlodipine Besylate (Norvasc Tab) 2.5 mg DAILY PO 07/14/16 09:00 08/13/16 08:59 07/14/16 08:26 2.5 MG Travoprost (Travatan Z) 1 drops HS OP 07/13/16 21:00 08/12/16 20:59 07/13/16 21:32 1 DROPS Hydralazine HCl (HydrALAZINE INJ) 10 mg Q6H PRN IV. 07/13/16 11:00 08/12/16 10:59 Hydromorphone HCl 1 mg 1 mg Q6H PRN IV 07/13/16 15:45 07/27/16 15:44 07/13/16 17:33 1 MG Sodium Chloride 1,000 ml @ 100 mls/hr Q10H IV 07/14/16 11:00 08/13/16 10:59 07/14/16 12:01 100 MLS/HR Piperacillin Sod/ Tazobactam Sod/ Dextrose (Zosyn Iv/D5 100ml) 115 ml @ 28.75 mls/ hr Q8H IV 07/14/16 06:30 07/24/16 06:29 07/14/16 06:19 28.75 MLS/HR Piperacillin Sod/ Tazobactam Sod (Consult) 1 ea UD PRN N/A 07/14/16 02:15 08/13/16 02:14 Atorvastatin Calcium (Lipitor Tab) 40 mg HS PO 07/14/16 21:00 08/13/16 08:59 Review of Systems Review of Systems Constitutional: + chills, No fever Neurological: No dizzy Endocrine: + excessive thirst, + tired/sluggish, + too cold Gastrointestinal: + abdominal pain, + diarrhea, + indigestion, + nausea, + vomiting, No constipation Cardiovascular: No chest pain, No irregular heartbeat, No palpitations, No swelling ankles/feet Respiratory: No chronic cough, No shortness of breath Female : + frequent urination, + infections, No blood in urine Physical Exam Vital Signs: Vital Signs Past 12 Hours Date Time Temp Pulse Resp B/P Pulse Ox O2 Delivery O2 Flow Rate FiO2 07/14/16 10:07 96 Room Air 07/14/16 07:56 38.2 74 16 115/68 96 Room Air 07/14/16 01:54 36.7 76 110/62 07/14/16 00:47 Room Air Physical Exam: General Appearance: WD/WN, no apparent distress, + thin Eyes: bilateral eyes normal inspection ENT: hearing grossly normal Neck: supple, no adenopathy Respiratory/Chest: lungs clear, normal breath sounds, no respiratory distress Cardiovascular: regular rate, rhythm, no edema Extremities: non-tender, normal inspection, no pedal edema, no calf tenderness Neurologic/Psychiatric: alert, normal mood/affect, oriented x 3, + pertinent finding (not toxic ) Skin: normal color, warm/dry, no rash Lymphatic: no adenopathy
[2016-07-14] MEDS ORDERED: CONRAY 30% 150ML BOTTLE ONE (12:49)
--- NOTE | 2016-07-14 13:34 | DIAGNOSTIC IMAGING REPORT ---
INTRAOPERATIVE KUB CLINICAL HISTORY: Stent placement COMPARISON STUDY: No previous studies for comparison. FINDINGS: 2 intraoperative fluoroscopic spot images were provided for interpretation. 3 seconds of fluoroscopic time was utilized. Image #1 demonstrates a guidewire within the left ureter. Image #2 demonstrates the proximal aspect of a left-sided nephroureteral stent. The proximal pigtail is not fully formed IMPRESSION: Intraoperative fluoroscopic spot images during placement of a left ureteral stent Electronically signed by: Jasper Goncalves M.D. 07/14/2016 1:32 PM Dictated Date/Time: 07/14/2016 1:30 PM
--- NOTE | 2016-07-14 13:38 | [facility] Operative Report ---
Operative Report Operative Date Jul 14, 2016. Pre-Operative Diagnosis Left Pyelonephritis, hydronephrosis, Early Sepsis. Post-Operative Diagnosis same plus left ureterocele Procedure(s) Performed cysto left stent placement Surgeon Montessori Paraprofessional Surgeon(s) None Estimated Blood Loss 0ml Findings cloudy urine with chunky white debris in bladder. Left ureterocele, vigorous ureteral drainage after stent placement Fluids 100mL Specimens None Drains 6 fr 24 centimeter Anesthesia none Complication(s) None Disposition back to her floor room 288 Indications left pyelonephritis, hydronephrosis early sepsis, just became hypotensive and febrile this mid day so urgent stent is indicated. Description of Procedure Patient was placed in lithotomy position. Her genitals were prepped and draped in sterile fashion. Time out held with team. She has pale changes to perianal skin perhaps lichen sclerosis. I placed a 21 fr rigid cystoscope to bladder. The urethra is unremarkable. . The UOs are normal on right and a bulbous ureterocele with small lumen on left. The urine is cloudy with chunky white debris. I placed a road runner wire up left ureter with some initial difficulty getting appropriate angle from the elevated UO, and placed a 24 centimeter 6 Fr double J stent easily. There is brisk efflux after placement. I left bladder empty and concluded case. She transferred to her hospital room under my escort, in stable condition. 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 Any exceptions are noted below.
[2016-07-14 14:58] VITALS: BP 135/74; PULSE 83; TEMP 37; O2SAT 96
--- NOTE | 2016-07-14 15:59 | Progress Note ---
Internal Med Progress Note Date of Service: Jul 14, 2016. Provider Documentation: SUBJECTIVE: The patient was seen and examined Much better this AM Pain is better WCC has not improved OBJECTIVE: Vital Signs-as noted below Exam: General-Minimal distress at rest Eyes-normal ENT-normal Neck-supple Lungs-clear to auscultate bilaterally Heart-Regular Abdomen-benign,no masses,left renal angle in minimally tender Extremities-No edena Neuro-AAOx3 Lab data as noted below. ASSESSMENT & PLAN: SEPSIS PYELONEPHRITIS, GM NEGATIVE BACTEREMIA - patient preseNTED with nausea, vomiting, and diarrhea followed by abdominal pain; on CT abd/pelvis found to have extensive left perinephric fat stranding/ edema with associated mild left hydronephrosis, no renal, ureteral, or bladder stones identified - due to a pyelonephritis, recently passed stone, or an occult obstructing lesion. -REnal US-mild left Hydronephrosis - gallbladder US shows small amount of sludge -was on Levaquin -Changed to Zosyn last night - appreciate Urology and ID input OMAR - baseline creat 0.9 -> 1.8 today -secondary to ureteric obstruction -a little better today HTN - BP elevated, however patient did not her meds this AM - was recently prescribed Norvasc by PCP however patient did start - PRN hydralazine DM - hgb a1c 5.9 06/2016 - holding oral agents and utilizing SSI while hospitalized DVT PROPHYLAXIS - SCDs due to microscopic hematuria DISPO Awaited Vital Signs: Date Time Temp Pulse Resp B/P Pulse Ox O2 Delivery O2 Flow Rate FiO2 07/14/16 14:58 37.0 83 18 135/74 96 Room Air 07/14/16 13:19 77 97 Room Air 07/14/16 13:17 75 98 Room Air 07/14/16 13:12 77 99 Room Air 07/14/16 13:09 80 97 Room Air 07/14/16 13:07 81 97 Room Air 07/14/16 10:07 96 Room Air 07/14/16 07:56 38.2 74 16 115/68 96 Room Air 07/14/16 01:54 36.7 76 110/62 07/14/16 00:47 Room Air 07/13/16 23:28 37.0 78 18 99/61 97 Room Air 07/13/16 16:03 Room Air Lab Results: Results Past 24 Hours Test 07/13/16 16:00 07/13/16 20:24 07/14/16 06:20 07/14/16 07:24 Range/Units Bedside Glucose 228 268 126 70-90 mg/dl White Blood Count 15.08 4.8-10.8 K/uL Red Blood Count 3.51 4.2-5.4 M/uL Hemoglobin 10.0 12.0-16.0 g/dL Hematocrit 29.7 37-47 % Mean Corpuscular Volume 84.6 80-100 fL Mean Corpuscular Hemoglobin 28.5 25-34 pg Mean Corpuscular Hemoglobin Concent 33.7 32-36 g/dl RDW Standard Deviation 41.9 36.4-46.3 fL RDW Coefficient of Variation 13.7 11.5-14.5 % Platelet Count 174 130-400 K/uL Mean Platelet Volume 9.1 7.4-10.4 fL Sodium Level 139 136-145 mmol/L Potassium Level 3.7 3.5-5.1 mmol/L Chloride Level 106 98-107 mmol/L Carbon Dioxide Level 23 21-32 mmol/L Anion Gap 10.0 3-11 mmol/L Blood Urea Nitrogen 34 7-18 mg/dl Creatinine 1.70 0.60-1.20 mg/dl Est Creatinine Clear Calc Drug Dose 30.2 ml/min Estimated GFR () 36.3 Estimated GFR (Non- 31.3 BUN/Creatinine Ratio 19.8 10-20 Random Glucose 138 70-99 mg/dl Calcium Level 7.8 8.5-10.1 mg/dl Test 07/14/16 11:33 Range/Units Bedside Glucose 160 70-90 mg/dl Microbiology Results 07/14/16 Blood Culture, Received Pending 07/14/16 Blood Culture, Received Pending
[2016-07-14] MEDS: TRAVOPROST Z 0.004% OPH SOLN 2.5 ML BTL OP SCH (20:37)
[2016-07-14] MEDS: ATORVASTATIN 40 MG TAB PO SCH (20:38)
[2016-07-14 23:18] VITALS: BP 120/56; PULSE 72; TEMP 37; O2SAT 96
[2016-07-15] MEDS: ONDANSETRON INJ 2 MG/ML 2 ML VIAL IV PRN ×2 (01:40→08:04)
[2016-07-15] MEDS: SODIUM CHLORIDE 0.9% 1000ML 1,000 ML IV SCH ×2 (06:10→17:28)
[2016-07-15] MEDS: PIPERACILL/TAZOBAC IV 3.375 GM in DEXTROSE 5% 100ML IV SCH ×3 (06:10→22:14)
[2016-07-15] MEDS: ACETAMINOPHEN 325 MG TAB PO PRN (06:43)
[2016-07-15 07:43] LABS: MEAN CELL VOLUME 82.6 fL (80-100); MEAN CORPUSCULAR HEMOGLOBIN 28.2 pg (25-34); MEAN CORPUSCULAR HGB CONC 34.1 g/dl (32-36); PLATELET COUNT 173 K/uL (130-400); RED BLOOD COUNT 3.51 M/uL (4.2-5.4); WHITE BLOOD COUNT 11.61 K/uL (4.8-10.8)
[2016-07-15 08:00] VITALS: BP 174/77; PULSE 74; TEMP 37.1; O2SAT 97
[2016-07-15 08:13] LABS: BUN/CREATININE RATIO 16.6 (10-20); CALCIUM 7.8 mg/dl (8.5-10.1); CREATININE 1.4 mg/dl (0.60-1.20); MAGNESIUM 1.9 mg/dl (1.8-2.4); POTASSIUM 3.5 mmol/L (3.5-5.1)
[2016-07-15 08:24] LABS: ALB/GLOB RATIO 0.7 (0.9-2)
[2016-07-15] MEDS: INSULIN ASPART 100 UNITS/ML 3 ML PEN SC SCH ×4 (08:29→20:47)
[2016-07-15] MEDS: AMLODIPINE BESYLATE 5 MG TAB PO SCH (09:35)
[2016-07-15] MEDS ORDERED: LEVOFLOXACIN 750MG / D5W IV SCH (10:00)
--- NOTE | 2016-07-15 15:04 | Progress Note ---
Internal Med Progress Note Date of Service: Jul 15, 2016. Provider Documentation: SUBJECTIVE: The patient was seen and examined Not feeling well this AM Has had Nausea ,epigastric discomfort with vomiting OBJECTIVE: Vital Signs-as noted below Exam: General-Minimal distress at rest Eyes-normal ENT-normal Neck-supple Lungs-clear to auscultate bilaterally Heart-Regular Abdomen-benign,no masses,left renal angle in minimally tender Extremities-No edema Neuro-AAOx3 Lab data as noted below. ASSESSMENT & PLAN: Nausea and Vomiting Could be secondary to Gastritis due to medication,PUD/Reflux Symptomatic management SEPSIS PYELONEPHRITIS, GM NEGATIVE BACTEREMIA-E Coli ,pansensitive - patient preseNTED with nausea, vomiting, and diarrhea followed by abdominal pain; on CT abd/pelvis found to have extensive left perinephric fat stranding/ edema with associated mild left hydronephrosis, no renal, ureteral, or bladder stones identified - due to a pyelonephritis, recently passed stone, or an occult obstructing lesion. -REnal US-mild left Hydronephrosis - gallbladder US shows small amount of sludge -was on Levaquin -Changed to Zosyn last night 07/14/16 - appreciate Urology and ID input -S/P cysto left stent placement 07/14/16 -clinically better -Continue current medication OMAR - baseline creat 0.9 -> 1.8 today -secondary to ureteric obstruction -a little better today -further improvement HTN - BP elevated, however patient did not her meds this AM - was recently prescribed Norvasc by PCP however patient did start - PRN hydralazine DM - hgb a1c 5.9 06/2016 - holding oral agents and utilizing SSI while hospitalized DVT PROPHYLAXIS - SCDs due to microscopic hematuria DISPO Awaited Vital Signs: Date Time Temp Pulse Resp B/P Pulse Ox O2 Delivery O2 Flow Rate FiO2 07/15/16 08:00 37.1 74 16 174/77 97 Room Air 07/15/16 08:00 Room Air 07/15/16 00:00 Room Air 07/14/16 23:18 37.0 72 18 120/56 96 Room Air 07/14/16 20:00 Room Air 07/14/16 16:15 Room Air 07/14/16 15:30 Room Air 07/14/16 14:58 37.0 83 18 135/74 96 Room Air Lab Results: Results Past 24 Hours Test 07/14/16 16:39 07/14/16 20:25 07/15/16 07:11 07/15/16 07:36 Range/Units Bedside Glucose 143 151 146 70-90 mg/dl White Blood Count 11.61 4.8-10.8 K/uL Red Blood Count 3.51 4.2-5.4 M/uL Hemoglobin 9.9 12.0-16.0 g/dL Hematocrit 29.0 37-47 % Mean Corpuscular Volume 82.6 80-100 fL Mean Corpuscular Hemoglobin 28.2 25-34 pg Mean Corpuscular Hemoglobin Concent 34.1 32-36 g/dl RDW Standard Deviation 40.7 36.4-46.3 fL RDW Coefficient of Variation 13.4 11.5-14.5 % Platelet Count 173 130-400 K/uL Mean Platelet Volume 9.0 7.4-10.4 fL Sodium Level 140 136-145 mmol/L Potassium Level 3.5 3.5-5.1 mmol/L Chloride Level 109 98-107 mmol/L Carbon Dioxide Level 21 21-32 mmol/L Anion Gap 10.0 3-11 mmol/L Blood Urea Nitrogen 23 7-18 mg/dl Creatinine 1.40 0.60-1.20 mg/dl Est Creatinine Clear Calc Drug Dose 36.7 ml/min Estimated GFR () 45.9 Estimated GFR (Non- 39.6 BUN/Creatinine Ratio 16.6 10-20 Random Glucose 150 70-99 mg/dl Calcium Level 7.8 8.5-10.1 mg/dl Magnesium Level 1.9 1.8-2.4 mg/dl Total Bilirubin 0.3 0.2-1 mg/dl Aspartate Amino Transf (AST/SGOT) 12 15-37 U/L Alanine Aminotransferase (ALT/SGPT) 13 12-78 U/L Alkaline Phosphatase 57 45-117 U/L Total Protein 6.0 6.4-8.2 gm/dl Albumin 2.4 3.4-5.0 gm/dl Globulin 3.6 2.5-4.0 gm/dl Albumin/Globulin Ratio 0.7 0.9-2 Test 07/15/16 11:58 Range/Units Bedside Glucose 199 70-90 mg/dl Microbiology Results 07/15/16 C.difficile Toxin B Gene (PCR) - Final, Complete No C. difficile toxin B gene detected 07/15/16 Shiga Toxin Test, Received Pending 07/15/16 Stool Culture, Received Pending
[2016-07-15 16:18] VITALS: BP 185/75; PULSE 77; TEMP 37; O2SAT 97
[2016-07-15] MEDS ORDERED: MAGNESIUM HYDROXIDE SUSP 30 ML UDC PO ONE (17:00)
[2016-07-15] MEDS ORDERED: PROMETHAZINE HCL INJ 12.5 MG in SODIUM CHLORIDE 0.9% 50ML 50 ML IV ONE (17:30)
[2016-07-15] MEDS ORDERED: PANTOprazole SOD 40 MG TAB PO ONE (17:30)
[2016-07-15 18:26] VITALS: BP 171/91
[2016-07-15] MEDS ORDERED: CLONIDINE HCL 0.1 MG TAB PO PRN (18:45)
[2016-07-15 19:26] VITALS: BP 170/77; PULSE 81
[2016-07-15 20:13] VITALS: BP 136/64; PULSE 67
[2016-07-15] MEDS: ATORVASTATIN 40 MG TAB PO SCH (20:44)
[2016-07-15] MEDS: TRAVOPROST Z 0.004% OPH SOLN 2.5 ML BTL OP SCH (20:45)
--- NOTE | 2016-07-15 22:18 | Progress Note ---
Subjective Date of Service: Jul 15, 2016. Subjective Pt evaluation today including: conversation w/ patient, chart review, lab review Voiding: no voiding problems Problem List Pt still not feeling well. Mild nausea. No fevers. No chills. S/P Stent placement yesterday. Tolerated well. Min dysuria and flank pain. WBC improvin --> 11.6 Cr improvin.7 ---> 1.4 Urine Cx: E. Coli Blood Cx: E. Coli Review of Systems Constitutional: + see HPI Eyes: + see HPI All Other Systems: Reviewed and Negative Objective Vital Signs Date Time Temp Pulse Resp B/P Pulse Ox O2 Delivery O2 Flow Rate FiO2 07/15/16 20:13 67 136/64 07/15/16 20:00 Room Air 07/15/16 19:26 81 170/77 07/15/16 18:26 171/91 07/15/16 16:18 37.0 77 16 185/75 97 Room Air 07/15/16 15:56 Room Air 07/15/16 08:00 37.1 74 16 174/77 97 Room Air 07/15/16 08:00 Room Air 07/15/16 00:00 Room Air 07/14/16 23:18 37.0 72 18 120/56 96 Room Air Physical Exam General Appearance: WD/WN Eyes: normal inspection Respiratory/Chest: lungs clear Cardiovascular: regular rate, rhythm Abdomen: normal bowel sounds, non tender, soft Skin: no rash Lymphatic: no adenopathy Laboratory Results Last 24 Hours Test 07/15/16 07:11 07/15/16 07:36 07/15/16 11:58 07/15/16 16:49 White Blood Count 11.61 K/uL Red Blood Count 3.51 M/uL Hemoglobin 9.9 g/dL Hematocrit 29.0 % Mean Corpuscular Volume 82.6 fL Mean Corpuscular Hemoglobin 28.2 pg Mean Corpuscular Hemoglobin Concent 34.1 g/dl RDW Standard Deviation 40.7 fL RDW Coefficient of Variation 13.4 % Platelet Count 173 K/uL Mean Platelet Volume 9.0 fL Sodium Level 140 mmol/L Potassium Level 3.5 mmol/L Chloride Level 109 mmol/L Carbon Dioxide Level 21 mmol/L Anion Gap 10.0 mmol/L Blood Urea Nitrogen 23 mg/dl Creatinine 1.40 mg/dl Est Creatinine Clear Calc Drug Dose 36.7 ml/min Estimated GFR () 45.9 Estimated GFR (Non- 39.6 BUN/Creatinine Ratio 16.6 Random Glucose 150 mg/dl Calcium Level 7.8 mg/dl Magnesium Level 1.9 mg/dl Total Bilirubin 0.3 mg/dl Aspartate Amino Transf (AST/SGOT) 12 U/L Alanine Aminotransferase (ALT/SGPT) 13 U/L Alkaline Phosphatase 57 U/L Total Protein 6.0 gm/dl Albumin 2.4 gm/dl Globulin 3.6 gm/dl Albumin/Globulin Ratio 0.7 Bedside Glucose 146 mg/dl 199 mg/dl 187 mg/dl Test 07/15/16 20:25 Bedside Glucose 203 mg/dl Assessment and Plan (1) Hydronephrosis (2) Pyelonephritis POD#1 stent placement secondary to 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 Feeling better. Clinically improving but still not back to baseline. Cont abx. Hydration. Likely stable for discharge from point of view in 1-2 days. Pyridium PRN for dysuria. Flomax for stent colic. Problem Qualifiers (1) Hydronephrosis: Hydronephrosis type: unspecified Qualified Codes: N13.30 - Unspecified hydronephrosis
[2016-07-15 23:20] VITALS: BP 155/81; PULSE 65; TEMP 37.5; O2SAT 95
[2016-07-16] MEDS: SODIUM CHLORIDE 0.9% 1000ML 1,000 ML IV SCH ×3 (02:26→21:57)
[2016-07-16] MEDS: PIPERACILL/TAZOBAC IV 3.375 GM in DEXTROSE 5% 100ML IV SCH ×3 (05:58→21:55)
[2016-07-16 06:00] VITALS: TEMP 37.3
[2016-07-16 07:12] LABS: HEMATOCRIT 29.9 % (37-47); MEAN CELL VOLUME 82.6 fL (80-100); MEAN CORPUSCULAR HEMOGLOBIN 28.7 pg (25-34); MEAN CORPUSCULAR HGB CONC 34.8 g/dl (32-36); MEAN PLATELET VOLUME 8.9 fL (7.4-10.4); PLATELET COUNT 197 K/uL (130-400); RED BLOOD COUNT 3.62 M/uL (4.2-5.4); WHITE BLOOD COUNT 14.14 K/uL (4.8-10.8)
[2016-07-16 07:37] VITALS: BP 165/70; PULSE 69; TEMP 37; O2SAT 95
[2016-07-16 07:58] LABS: BUN/CREATININE RATIO 12.8 (10-20); CALCIUM 7.9 mg/dl (8.5-10.1); CREATININE 1.2 mg/dl (0.60-1.20); MAGNESIUM 1.9 mg/dl (1.8-2.4); POTASSIUM 3.1 mmol/L (3.5-5.1)
[2016-07-16] MEDS: INSULIN ASPART 100 UNITS/ML 3 ML PEN SC SCH ×4 (08:22→21:55)
[2016-07-16] MEDS: AMLODIPINE BESYLATE 5 MG TAB PO SCH (08:23)
[2016-07-16] MEDS: PANTOprazole SOD 40 MG TAB PO SCH (08:24)
--- NOTE | 2016-07-16 10:18 | Progress Note ---
Subjective Date of Service: Jul 16, 2016. Subjective Pt evaluation today including: conversation w/ patient, chart review, lab review Voiding: no voiding problems Quite a bit of nausea yesterday. That has improved this morning. No fevers. No chills. She got up early and has already done quite a bit of walking. S/P Stent placement 07/14/16. Tolerated well. Min dysuria and flank pain. WBC: 15 --> 11.6 ---> 14 Cr: 1.7 ---> 1.4 --->1.2 Urine Cx: E. Coli Blood Cx: E. Coli Review of Systems Constitutional: + see HPI Abdomen: + see HPI All Other Systems: Reviewed and Negative Objective Vital Signs Date Time Temp Pulse Resp B/P Pulse Ox O2 Delivery O2 Flow Rate FiO2 07/16/16 08:00 Room Air 07/16/16 07:37 37.0 69 16 165/70 95 Room Air 07/16/16 06:00 37.3 07/16/16 00:00 Room Air 07/15/16 23:20 37.5 65 14 155/81 95 Room Air 07/15/16 20:13 67 136/64 07/15/16 20:00 Room Air 07/15/16 19:26 81 170/77 07/15/16 18:26 171/91 07/15/16 16:18 37.0 77 16 185/75 97 Room Air 07/15/16 15:56 Room Air Physical Exam General Appearance: WD/WN Eyes: normal inspection Respiratory/Chest: chest non-tender Cardiovascular: regular rate, rhythm Abdomen: normal bowel sounds, soft Neurologic/Psychiatric: alert Skin: no rash Laboratory Results Last 24 Hours Test 07/15/16 11:58 07/15/16 16:49 07/15/16 20:25 07/16/16 06:46 Bedside Glucose 199 mg/dl 187 mg/dl 203 mg/dl White Blood Count 14.14 K/uL Red Blood Count 3.62 M/uL Hemoglobin 10.4 g/dL Hematocrit 29.9 % Mean Corpuscular Volume 82.6 fL Mean Corpuscular Hemoglobin 28.7 pg Mean Corpuscular Hemoglobin Concent 34.8 g/dl RDW Standard Deviation 40.4 fL RDW Coefficient of Variation 13.2 % Platelet Count 197 K/uL Mean Platelet Volume 8.9 fL Sodium Level 140 mmol/L Potassium Level 3.1 mmol/L Chloride Level 108 mmol/L Carbon Dioxide Level 22 mmol/L Anion Gap 10.0 mmol/L Blood Urea Nitrogen 15 mg/dl Creatinine 1.20 mg/dl Est Creatinine Clear Calc Drug Dose 42.8 ml/min Estimated GFR () 55.3 Estimated GFR (Non- 47.7 BUN/Creatinine Ratio 12.8 Random Glucose 154 mg/dl Calcium Level 7.9 mg/dl Magnesium Level 1.9 mg/dl Test 07/16/16 07:31 Bedside Glucose 161 mg/dl Assessment and Plan (1) Hydronephrosis (2) Pyelonephritis POD#2 stent placement secondary to 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 Feeling better. Cont abx. Hydration. Likely stable for discharge from point of view in 1-2 days. Will need to f/u as outpatient in 2 -3 weeks for stent removal. Problem Qualifiers (1) Hydronephrosis: Hydronephrosis type: unspecified Qualified Codes: N13.30 - Unspecified hydronephrosis
[2016-07-16] MEDS ORDERED: POTASSIUM CHLORIDE 10 MEQ TABCR PO STA (12:35)
--- NOTE | 2016-07-16 12:38 | Progress Note ---
Internal Med Progress Note Date of Service: Jul 16, 2016. Provider Documentation: SUBJECTIVE: The patient was seen and examined Much better today Denies any symptoms OBJECTIVE: Vital Signs-as noted below Exam: General-No distress at rest Eyes-normal ENT-normal Neck-supple Lungs-clear to auscultate bilaterally Heart-Regular Abdomen-benign,no masses,left renal angle in minimally tender Extremities-No edema Neuro-AAOx3 Lab data as noted below. ASSESSMENT & PLAN: Nausea and Vomiting-resolved Could be secondary to Gastritis due to medication,PUD/Reflux Symptomatic management Denies any symptoms-no dysuria SEPSIS PYELONEPHRITIS, GM NEGATIVE BACTEREMIA-E Coli ,pansensitive - patient preseNTED with nausea, vomiting, and diarrhea followed by abdominal pain; on CT abd/pelvis found to have extensive left perinephric fat stranding/ edema with associated mild left hydronephrosis, no renal, ureteral, or bladder stones identified - due to a pyelonephritis, recently passed stone, or an occult obstructing lesion. -REnal US-mild left Hydronephrosis - gallbladder US shows small amount of sludge -was on Levaquin -Changed to Zosyn last night 07/14/16 - appreciate Urology and ID input -S/P cysto left stent placement 07/14/16 -clinically better -Continue current medication -WCC is increased today -likely discharged tomorrow Electrolytes imbalance Supplement Recheck in AM OMAR - baseline creat 0.9 -> 1.8 today -secondary to ureteric obstruction -a little better today -further improvement HTN - BP elevated, however patient did not her meds this AM - was recently prescribed Norvasc by PCP however patient did start - PRN hydralazine DM - hgb a1c 5.9 06/2016 - holding oral agents and utilizing SSI while hospitalized DVT PROPHYLAXIS - SCDs due to microscopic hematuria DISPO Likely home tomorrow Vital Signs: Date Time Temp Pulse Resp B/P Pulse Ox O2 Delivery O2 Flow Rate FiO2 07/16/16 08:00 Room Air 07/16/16 07:37 37.0 69 16 165/70 95 Room Air 07/16/16 06:00 37.3 07/16/16 00:00 Room Air 07/15/16 23:20 37.5 65 14 155/81 95 Room Air 07/15/16 20:13 67 136/64 07/15/16 20:00 Room Air 07/15/16 19:26 81 170/77 07/15/16 18:26 171/91 07/15/16 16:18 37.0 77 16 185/75 97 Room Air 07/15/16 15:56 Room Air Lab Results: Results Past 24 Hours Test 07/15/16 16:49 07/15/16 20:25 07/16/16 06:46 07/16/16 07:31 Range/Units Bedside Glucose 187 203 161 70-90 mg/dl White Blood Count 14.14 4.8-10.8 K/uL Red Blood Count 3.62 4.2-5.4 M/uL Hemoglobin 10.4 12.0-16.0 g/dL Hematocrit 29.9 37-47 % Mean Corpuscular Volume 82.6 80-100 fL Mean Corpuscular Hemoglobin 28.7 25-34 pg Mean Corpuscular Hemoglobin Concent 34.8 32-36 g/dl RDW Standard Deviation 40.4 36.4-46.3 fL RDW Coefficient of Variation 13.2 11.5-14.5 % Platelet Count 197 130-400 K/uL Mean Platelet Volume 8.9 7.4-10.4 fL Sodium Level 140 136-145 mmol/L Potassium Level 3.1 3.5-5.1 mmol/L Chloride Level 108 98-107 mmol/L Carbon Dioxide Level 22 21-32 mmol/L Anion Gap 10.0 3-11 mmol/L Blood Urea Nitrogen 15 7-18 mg/dl Creatinine 1.20 0.60-1.20 mg/dl Est Creatinine Clear Calc Drug Dose 42.8 ml/min Estimated GFR () 55.3 Estimated GFR (Non- 47.7 BUN/Creatinine Ratio 12.8 10-20 Random Glucose 154 70-99 mg/dl Calcium Level 7.9 8.5-10.1 mg/dl Magnesium Level 1.9 1.8-2.4 mg/dl Test 07/16/16 11:34 Range/Units Bedside Glucose 155 70-90 mg/dl
[2016-07-16 15:38] VITALS: BP 137/74; PULSE 74; TEMP 37.6; O2SAT 97
[2016-07-16 16:00] VITALS: O2SAT 97
[2016-07-16] MEDS: TRAVOPROST Z 0.004% OPH SOLN 2.5 ML BTL OP SCH (21:51)
[2016-07-16] MEDS: ATORVASTATIN 40 MG TAB PO SCH (21:51)
[2016-07-17] VITALS (8 sets, daily range): BP systolic 148–175; BP diastolic 74–81; PULSE 69–77; TEMP 36.6–37.5; O2SAT 97–99
[2016-07-17] MEDS: PIPERACILL/TAZOBAC IV 3.375 GM in DEXTROSE 5% 100ML IV SCH ×2 (05:35→14:24)
[2016-07-17 07:24] LABS: MEAN CELL VOLUME 81.9 fL (80-100); MEAN CORPUSCULAR HEMOGLOBIN 27.8 pg (25-34); MEAN CORPUSCULAR HGB CONC 33.9 g/dl (32-36); MEAN PLATELET VOLUME 8.8 fL (7.4-10.4); PLATELET COUNT 184 K/uL (130-400); RED BLOOD COUNT 3.42 M/uL (4.2-5.4); WHITE BLOOD COUNT 10.13 K/uL (4.8-10.8)
[2016-07-17 07:56] LABS: BUN/CREATININE RATIO 11.1 (10-20); CALCIUM 7.6 mg/dl (8.5-10.1); CREATININE 1.2 mg/dl (0.60-1.20); MAGNESIUM 1.8 mg/dl (1.8-2.4); POTASSIUM 3.6 mmol/L (3.5-5.1)
[2016-07-17 08:12] LABS: PHOSPHORUS 1.5 mg/dl (2.5-4.9)
[2016-07-17] MEDS: SODIUM CHLORIDE 0.9% 1000ML 1,000 ML IV SCH (08:56)
[2016-07-17] MEDS: AMLODIPINE BESYLATE 5 MG TAB PO SCH (08:56)
[2016-07-17] MEDS: PANTOprazole SOD 40 MG TAB PO SCH (08:57)
[2016-07-17] MEDS: INSULIN ASPART 100 UNITS/ML 3 ML PEN SC SCH ×2 (09:11→12:19)
[2016-07-17] MEDS ORDERED: POTASSIUM PHOS 3 MMOL/1 ML INFUSION IV STA (09:17)
[2016-07-17] MEDS ORDERED: POTASSIUM PHOSPHATE INJ 30 MMOL in SODIUM CHLORIDE 0.9% 500ML 500 ML IV SCH (09:45)
--- NOTE | 2016-07-17 13:00 | Progress Note ---
Internal Med Progress Note Date of Service: Jul 17, 2016. Provider Documentation: SUBJECTIVE: The patient was seen and examined Denies any symptoms Feels a lot better to be discharged OBJECTIVE: Vital Signs-as noted below Exam: General-No distress at rest Eyes-normal ENT-normal Neck-supple Lungs-clear to auscultate bilaterally Heart-Regular Abdomen-benign,no masses,no tenderness in renal angles Extremities-No edema Neuro-AAOx3 Lab data as noted below. ASSESSMENT & PLAN: Nausea and Vomiting-resolved Could be secondary to Gastritis due to medication,PUD/Reflux Symptomatic management Denies any symptoms-no dysuria Resolved SEPSIS PYELONEPHRITIS, GM NEGATIVE BACTEREMIA-E Coli ,pansensitive - patient preseNTED with nausea, vomiting, and diarrhea followed by abdominal pain; on CT abd/pelvis found to have extensive left perinephric fat stranding/ edema with associated mild left hydronephrosis, no renal, ureteral, or bladder stones identified - due to a pyelonephritis, recently passed stone, or an occult obstructing lesion. -REnal US-mild left Hydronephrosis - gallbladder US shows small amount of sludge -was on Levaquin -Changed to Zosyn last night 07/14/16 - appreciate Urology and ID input -S/P cysto left stent placement 07/14/16 -clinically better -Continue current medication -WCC improved -Discharge on Cipro for 14 days in total Electrolytes imbalance Supplement Recheck at 3PM before discharge OMAR - baseline creat 0.9 -> 1.8 today -secondary to ureteric obstruction -a little better today -further improvement -improved HTN - BP elevated, however patient did not her meds this AM - was recently prescribed Norvasc by PCP however patient did start - PRN hydralazine DM - hgb a1c 5.9 06/2016 - holding oral agents and utilizing SSI while hospitalized DVT PROPHYLAXIS - SCDs due to microscopic hematuria DISPO Likely home today Vital Signs: Date Time Temp Pulse Resp B/P Pulse Ox O2 Delivery O2 Flow Rate FiO2 07/17/16 10:25 97 Room Air 07/17/16 08:00 97 Room Air 07/17/16 07:50 36.9 69 20 167/74 97 Room Air 07/17/16 07:47 37.0 70 16 175/77 97 Room Air 07/17/16 00:11 36.6 77 18 148/74 99 Room Air 07/17/16 00:08 97 Room Air 07/16/16 16:00 97 Room Air 07/16/16 15:38 37.6 74 16 137/74 97 Room Air Lab Results: Results Past 24 Hours Test 07/16/16 16:27 07/16/16 20:36 07/17/16 06:59 07/17/16 07:39 Range/Units Bedside Glucose 179 187 133 70-90 mg/dl White Blood Count 10.13 4.8-10.8 K/uL Red Blood Count 3.42 4.2-5.4 M/uL Hemoglobin 9.5 12.0-16.0 g/dL Hematocrit 28.0 37-47 % Mean Corpuscular Volume 81.9 80-100 fL Mean Corpuscular Hemoglobin 27.8 25-34 pg Mean Corpuscular Hemoglobin Concent 33.9 32-36 g/dl RDW Standard Deviation 40.1 36.4-46.3 fL RDW Coefficient of Variation 13.2 11.5-14.5 % Platelet Count 184 130-400 K/uL Mean Platelet Volume 8.8 7.4-10.4 fL Sodium Level 143 136-145 mmol/L Potassium Level 3.6 3.5-5.1 mmol/L Chloride Level 111 98-107 mmol/L Carbon Dioxide Level 23 21-32 mmol/L Anion Gap 9.0 3-11 mmol/L Blood Urea Nitrogen 13 7-18 mg/dl Creatinine 1.20 0.60-1.20 mg/dl Est Creatinine Clear Calc Drug Dose 42.8 ml/min Estimated GFR () 55.3 Estimated GFR (Non- 47.7 BUN/Creatinine Ratio 11.1 10-20 Random Glucose 157 70-99 mg/dl Calcium Level 7.6 8.5-10.1 mg/dl Phosphorus Level 1.5 2.5-4.9 mg/dl Magnesium Level 1.8 1.8-2.4 mg/dl Test 07/17/16 11:16 Range/Units Bedside Glucose 198 70-90 mg/dl
[2016-07-17] MEDS ORDERED: PRT40 PO (14:59)
[2016-07-17] MEDS ORDERED: LCTX PO (14:59)
[2016-07-17] MEDS ORDERED: CPR500 PO (14:59)
--- NOTE | 2016-07-17 15:03 | Discharge Instructions ---
Discharge Instructions Date of Service Jul 17, 2016. Admission Reason for Admission: Pyelonephritis Discharge Discharge Diagnosis / Problem: Pyelonephritis,E Coli Bacteremia Discharge Goals Goal(s): Prevent Disease Progression Activity Recommendations Activity Limitations: resume your previous activity . Instructions / Follow-Up Instructions / Follow-Up Dr Hernandez on 07/21/16 at 1:15PM.Please keep appointment with Urology Current Hospital Diet Patient's current hospital diet: Diabetes Type 2 Diet Discharge Diet Recommended Diet: Diabetes Type 2 Diet Procedures Procedures Performed: Cystoscopy Left Ureteral Stent Insertion Pending Studies Studies pending at discharge: no Medical Emergencies . Who to Call and When: Medical Emergencies: If at any time you feel your situation is an emergency, please call 911 immediately. . Non-Emergent Contact Non-Emergency issues call your: Primary Care Provider . . "Provider Documentation" section prepared by Karime Bosch. VTE Core Measure Inpt VTE Proph given/why not?: SCD's
[2016-07-17] MEDS ORDERED: CIPROFLOXACIN 500 MG TAB PO ONE (15:15)
[2016-07-17 16:03] LABS: CALCIUM 7.5 mg/dl (8.5-10.1); CREATININE 1.2 mg/dl (0.60-1.20); POTASSIUM 3.6 mmol/L (3.5-5.1)
[2016-07-17 16:08] LABS: PHOSPHORUS 2.6 mg/dl (2.5-4.9)
--- NOTE | 2016-07-17 16:43 | Infectious Disease Progress Nt ---
Progress Note Date of Service Jul 17, 2016. Subjective Pt evaluation today including: conversation w/ patient, physical exam, chart review, lab review, review of studies, conversation w/ seo consultant (Dr Bosch), review of inpatient medication list WBC count today is 10.13. Creatinine was 1.20. Blood and urine cultures grew pansensitive E. Coli. C. Diff toxin was negative, and stool cultures showed no growth. Patient is feeling much better today. She was having N/V but that has subsided. Patient had a left-sided stent placed and was noted to have cloudy fluid come from the kidney once released- operative record was reviewed by me. All Other Systems: Reviewed and Negative Medications Current Inpatient Medications Medications (Trade) Dose Ordered Sig/Hollis Route Start Time Stop Time Status Last Admin Dose Admin Acetaminophen (Tylenol Tab) 650 mg Q4H PRN PO 07/13/16 09:45 08/12/16 09:44 07/15/16 06:43 650 MG Ondansetron HCl (Zofran Inj) 4 mg Q6H PRN IV 07/13/16 09:45 08/12/16 09:44 07/15/16 08:04 4 MG Insulin Aspart (novoLOG ASPART) SLIDING SCALE If C... ACHS SC 07/13/16 11:00 08/12/16 10:59 07/17/16 12:19 3 UNITS Glucose (Glucose 40% Gel) 15-30 GRAMS 15 GRAMS... UD PRN PO 07/13/16 10:00 08/12/16 09:59 Glucose (Glucose Chew Tab) 4-8 Tablets 4 Tabl... UD PRN PO 07/13/16 10:00 08/12/16 09:59 Dextrose (Dextrose 50% 50ML Syringe) 25-50ML OF 50% DW IV FOR... UD PRN IV 07/13/16 10:00 08/12/16 09:59 Glucagon (Glucagon Inj) 1 mg UD PRN SQ 07/13/16 10:00 08/12/16 09:59 Amlodipine Besylate (Norvasc Tab) 2.5 mg DAILY PO 07/14/16 09:00 08/13/16 08:59 07/17/16 08:56 2.5 MG Travoprost (Travatan Z) 1 drops HS OP 07/13/16 21:00 08/12/16 20:59 07/16/16 21:51 1 DROPS Hydralazine HCl (HydrALAZINE INJ) 10 mg Q6H PRN IV. 07/13/16 11:00 08/12/16 10:59 Hydromorphone HCl 1 mg 1 mg Q6H PRN IV 07/13/16 15:45 07/27/16 15:44 07/13/16 17:33 1 MG Sodium Chloride (Nss 1000ml) 1,000 ml @ 100 mls/hr Q10H IV 07/14/16 11:00 08/13/16 10:59 07/17/16 08:56 100 MLS/HR Atorvastatin Calcium (Lipitor Tab) 40 mg HS PO 07/14/16 21:00 08/13/16 08:59 07/16/16 21:51 40 MG Pantoprazole Sodium (Protonix Tab) 40 mg QAM PO 07/16/16 09:00 08/15/16 08:59 07/17/16 08:57 40 MG Clonidine HCl (Catapres Tab) 0.1 mg Q6H PRN PO 07/15/16 18:45 08/14/16 18:44 07/15/16 19:27 0.1 MG Ciprofloxacin (Cipro Tab) 500 mg DAILY PO 07/18/16 09:00 07/27/16 08:59 Objective Vital Signs Date Time Temp Pulse Resp B/P Pulse Ox O2 Delivery O2 Flow Rate FiO2 07/17/16 15:57 37.5 71 16 163/81 98 Room Air 07/17/16 10:25 97 Room Air 07/17/16 08:00 97 Room Air 07/17/16 07:50 36.9 69 20 167/74 97 Room Air 07/17/16 07:47 37.0 70 16 175/77 97 Room Air 07/17/16 00:11 36.6 77 18 148/74 99 Room Air 07/17/16 00:08 97 Room Air Physical Exam General Appearance: WD/WN, no apparent distress Eyes: normal inspection, sclerae normal ENT: hearing grossly normal Neck: supple, trachea midline Respiratory/Chest: no respiratory distress, no accessory muscle use Cardiovascular: regular rate, rhythm Neurologic/Psychiatric: alert, normal mood/affect Skin: normal color, warm/dry, no rash Laboratory Results RUN DATE: 07/15/16 [facility] LAB PAGE 1 RUN TIME: 940 Specimen Inquiry PATIENT: DONTE SUE LOC: [facility] # : [id number] AGE/SX: 65/F ROOM: N288 REG : 07/13/[address]: Karime Bosch M.D. : 1950 BED: 1 DIS : STATUS: ADM IN TLOC: SPEC #: [id number] JAMES: 07/13/16 STATUS: COMP REQ #: [id number] RECD: 07/13/[address]: nAam Martel M.D. SOURCE: BLOOD ENTR: 07/13/[address] [facility] [address]: Ghislaine Hernandez D.OMl SPDESC: ORDERED: BLOOD CULTURE COMMENTS: Comments to Messenger Floorperson SAME TIME DIFFERENT SITES Procedure Result Verified Site BLD CULT Final 07/15/16-0941 Organism 1 ESCHERICHIA COLI SENS SENSITIVITY TO FOLLOW Phoned Positive Blood Culture Gram Stain Report to VENITA ARVIZU on 07/13/16 At 2247 By JOSE. Results were verbalized back to JOSE. 1. ESCHERICHIA COLI Target Route Dose RX AB Cost M.I.C. IQ ------ ----- ------ -- ------ -------- - ------ TRIMET/SULFA S <=2/38 AMPICILLIN S <=8 AMPICILLIN/SUL S <=8/4 CEFAZOLIN S <=8 CEFOTAXIME S <=2 CEFTRIAXONE S <=1 CEFEPIME S <=4 CEFUROXIME S <=4 IMIPENEM S <=1 GENTAMICIN S <=4 TOBRAMYCIN S <=4 AMIKACIN S <=16 CIPROFLOXACIN S <=1 LEVOFLOXACIN S <=2 ERTAPENEM S <=1 PIP/TAZO S <=16 S = SENSITIVE I = INTERMEDIATE R = RESISTANT Item Value Date Time C.difficile Toxin B Gene (PCR) - Final Complete 07/15/16 0000 Stool No C. difficile toxin B gene detected Shiga Toxin Test - Preliminary Resulted 07/15/16 0000 Stool Blood Culture - Preliminary Resulted 07/14/16 1250 Blood NO GROWTH TO DATE. Blood Culture - Preliminary Resulted 07/14/16 1235 Blood NO GROWTH TO DATE. Blood Culture - Final Complete 07/13/16 0910 Blood Escherichia Coli Blood Culture - Final Complete 07/13/16 0905 Blood Escherichia Coli Urine Culture - Final Complete 07/13/16 0630 Urine , Clean Catch Escherichia Coli Last 24 Hours Test 07/16/16 20:36 07/17/16 06:59 07/17/16 07:39 07/17/16 11:16 Bedside Glucose 187 mg/dl 133 mg/dl 198 mg/dl White Blood Count 10.13 K/uL Red Blood Count 3.42 M/uL Hemoglobin 9.5 g/dL Hematocrit 28.0 % Mean Corpuscular Volume 81.9 fL Mean Corpuscular Hemoglobin 27.8 pg Mean Corpuscular Hemoglobin Concent 33.9 g/dl RDW Standard Deviation 40.1 fL RDW Coefficient of Variation 13.2 % Platelet Count 184 K/uL Mean Platelet Volume 8.8 fL Sodium Level 143 mmol/L Potassium Level 3.6 mmol/L Chloride Level 111 mmol/L Carbon Dioxide Level 23 mmol/L Anion Gap 9.0 mmol/L Blood Urea Nitrogen 13 mg/dl Creatinine 1.20 mg/dl Est Creatinine Clear Calc Drug Dose 42.8 ml/min Estimated GFR () 55.3 Estimated GFR (Non- 47.7 BUN/Creatinine Ratio 11.1 Random Glucose 157 mg/dl Calcium Level 7.6 mg/dl Phosphorus Level 1.5 mg/dl Magnesium Level 1.8 mg/dl Test 07/17/16 14:47 Sodium Level 139 mmol/L Potassium Level 3.6 mmol/L Chloride Level 109 mmol/L Carbon Dioxide Level 21 mmol/L Anion Gap 9.0 mmol/L Blood Urea Nitrogen 12 mg/dl Creatinine 1.20 mg/dl Est Creatinine Clear Calc Drug Dose 42.8 ml/min Estimated GFR () 55.3 Estimated GFR (Non- 47.7 BUN/Creatinine Ratio 10.0 Random Glucose 199 mg/dl Calcium Level 7.5 mg/dl Phosphorus Level 2.6 mg/dl Assessment and Plan (1) Hydronephrosis (2) Pyelonephritis Patient with E. Coli bacteremia and left-sided pyelonephritis. Cultures showing pansensitive E. Coli. Discussed patient with Dr. Bosch- will transition to PO Cipro to complete 14 days total. Patient will need ID follow up. Thank you Case reviewed and agree with above assessment. Continued [facility] stay due to: fever
[2016-07-18] MEDS ORDERED: CIPROFLOXACIN 500 MG TAB PO SCH (09:00)
--- NOTE | 2016-07-18 12:43 | Discharge Summary ---
Discharge Summary Date of Service Jul 18, 2016. Discharge Summary Admission Date: Jul 13, 2016 at 09:43 Discharge Date: Jul 17, 2016 Discharge Disposition: Home Principal Diagnosis: Pyelonephritis,E Coli Bacteremia Secondary Diagnoses/Problems: Please see H&P and Hospital Progress note Consultations: Urology and ID Medication Reconciliation New Medications: Ciprofloxacin (Ciprofloxacin HCl) 500 Mg Tab 500 MG PO BIDM, #20 Lactobacillus Acidophilus (Lactinex) Tab 2 TAB PO BID, #30 TAB Pantoprazole (Pantoprazole Sodium) 40 Mg Tab 40 MG PO QAM for 30 Days, #30 TAB Continued Medications: Amlodipine Besylate (Amlodipine Besylate) 5 Mg Tab 2.5 MG PO DAILY, TAB patient has not started taking yet Atorvastatin (Lipitor) 40 Mg Tab 40 MG PO DAILY, TAB Glipizide (Glipizide Er) 2.5 Mg Tab 1 TAB PO DAILY Lisinopril (Zestril) 40 Mg Tab 40 MG PO QAM, TAB Metformin HCl (Metformin HCl ER) 500 Mg Tabcr 500 MG PO HS Travoprost (Travatan Z) 0.004 % Augie 1 DROPS OP HS, #2.5 ML 2 Refills Admission Information HPI (per Admitting provider): 65 year old female who presents to the ER with nausea, vomiting, diarrhea, and abdominal pain. Patient reports her symptoms her symptoms began last evening around 11pm. She reports she was woken from sleep. She had multiple episodes of vomiting and diarrhea. She denies hematemesis, coffee ground emesis, BRBRPR, or dark tarry stools. She reports developing mid and lower abdominal pain after multiple episodes of vomiting. She describes the pain as an ache. Pain is improved now. Patient reports feeling chilled but did not take her temperature and is afebrile in the ED. She denies back or flank pain. No dysuria or hematuria. She reports mild lightheadedness with standing, denies dizziness and syncopal events. No chest pain or shortness of breath. In the ER, patient WBC 15K, creat 1.8, U/A suggests UTI. HR is mildly tachycardic in the low 90s. BP is stable. CT was obtained that shows extensive left perinephric fat stranding/ edema with associated mild left hydronephrosis; could be due to a pyelonephritis , recently passed stone, or an occult obstructing lesion. Gallbladder US shows a small amount of gallbladder sludge, no evidence for acute cholecystitis. Patient was given IVF, Levaquin, morphine, and Zofran. Past Medical/Surgical History Medical Problems: (1) DM type 2 (diabetes mellitus, type 2) Status: Chronic (2) Dyslipidemia Status: Chronic (3) HTN (hypertension) Status: Chronic (4) Pyelonephritis Status: Resolved Surgical Problems: (1) History of abdominal hysterectomy Status: Resolved (2) History of cataract surgery Status: Chronic (3) History of hysterectomy Status: Chronic Social History Smoking Status: Never Smoker Drug Use: none Immunizations History of Influenza Vaccine: Yes Influenza Vaccine Date: Dec 28, 2015 History of Tetanus Vaccine?: Yes Tetanus Immunization Date: Jul 17, 2014 History of Pneumococcal: Yes Pneumococcal Date: Aug 06, 2014 Multi-Drug Resistant Organisms History of MDRO: No Allergies Coded Allergies: BEE STING (Verified Allergy, Unknown, SWELLING, 07/13/16) Sulfa Antibiotics (Verified Allergy, Unknown, From a b/p med (told never take sulfa), RASH, 07/13/16) Home Medications Scheduled Amlodipine Besylate (Amlodipine Besylate), 2.5 MG PO DAILY Atorvastatin (Lipitor), 40 MG PO DAILY Glipizide (Glipizide Er), 1 TAB PO DAILY Lisinopril (Zestril), 40 MG PO QAM Metformin HCl (Metformin HCl ER), 500 MG PO HS Travoprost (Travatan Z), 1 DROPS OP HS Review of Systems 10 point review of systems was completed with the pertinent positives and negatives noted per the HPI Physical Ex - H&P Physical Exam Vital Signs Date Time Temp Pulse Resp B/P Pulse Ox O2 Delivery O2 Flow Rate FiO2 07/13/16 09:10 96 Room Air 07/13/16 08:58 88 16 161/74 96 07/13/16 08:02 92 22 172/77 92 Room Air 07/13/16 07:20 92 12 173/78 96 Room Air 07/13/16 06:56 92 07/13/16 06:14 36.9 86 20 159/75 97 Room Air General Appearance: no apparent distress Head: normocephalic Eyes: normal inspection ENT: hearing grossly normal Neck: supple, no JVD Respiratory/Chest: lungs clear, normal breath sounds, no respiratory distress Cardiovascular: regular rate, rhythm, no edema, normal peripheral pulses Abdomen/GI: normal bowel sounds, soft, + tenderness (epigastric, LLQ ) Back: no CVA tenderness Extremities/Musculoskelatal: normal inspection, no calf tenderness Neurologic/Psych: no motor/sensory deficits, alert, normal mood/affect, oriented x 3 Skin: normal color, warm/dry Diagnostics - H&P Diagnostics Laboratory Results Results Past 24 Hours Test 07/13/16 06:03 07/13/16 06:30 07/13/16 07:11 07/13/16 09:44 Range/Units White Blood Count 15.94 4.8-10.8 K/uL Red Blood Count 3.84 4.2-5.4 M/uL Hemoglobin 11.0 12.0-16.0 g/dL Hematocrit 32.3 37-47 % Mean Corpuscular Volume 84.1 80-100 fL Mean Corpuscular Hemoglobin 28.6 25-34 pg Mean Corpuscular Hemoglobin Concent 34.1 32-36 g/dl Platelet Count 227 130-400 K/uL Mean Platelet Volume 9.0 7.4-10.4 fL Neutrophils (%) (Auto) 89.4 % Lymphocytes (%) (Auto) 4.2 % Monocytes (%) (Auto) 6.0 % Eosinophils (%) (Auto) 0.0 % Basophils (%) (Auto) 0.1 % Neutrophils # (Auto) 14.26 1.4-6.5 K/uL Lymphocytes # (Auto) 0.67 1.2-3.4 K/uL Monocytes # (Auto) 0.95 0.11-0.59 K/uL Eosinophils # (Auto) 0.00 0-0.5 K/uL Basophils # (Auto) 0.02 0-0.2 K/uL RDW Standard Deviation 40.5 36.4-46.3 fL RDW Coefficient of Variation 13.3 11.5-14.5 % Immature Granulocyte % (Auto) 0.3 % Immature Granulocyte # (Auto) 0.04 0.00-0.02 K/uL Urine Color YELLOW Urine Appearance CLOUDY CLEAR Urine pH 5.5 4.5-7.5 Urine Specific [place] 1.016 1.000-1.030 Urine Protein TRACE NEG Urine Glucose (UA) 1+ NEG Urine Ketones 2+ NEG Urine Occult Blood 2+ NEG Urine Nitrite NEG NEG Urine Bilirubin NEG NEG Urine Urobilinogen NEG NEG Urine Leukocyte Esterase MODERATE NEG Urine WBC (Auto) >30 0-5 /hpf Urine RBC (Auto) 10-30 0-4 /hpf Urine Hyaline Casts (Auto) 1-5 0-5 /lpf Urine Epithelial Cells (Auto) >30 0-5 /lpf Urine Bacteria (Auto) 4+ NEG Sodium Level 141 136-145 mmol/L Potassium Level 4.0 3.5-5.1 mmol/L Chloride Level 107 98-107 mmol/L Carbon Dioxide Level 25 21-32 mmol/L Anion Gap 9.0 3-11 mmol/L Blood Urea Nitrogen 39 7-18 mg/dl Creatinine 1.80 0.60-1.20 mg/dl Est Creatinine Clear Calc Drug Dose 28.6 ml/min Estimated GFR () 33.9 Estimated GFR (Non- 29.2 BUN/Creatinine Ratio 21.5 10-20 Random Glucose 242 70-99 mg/dl Calcium Level 9.0 8.5-10.1 mg/dl Total Bilirubin 0.5 0.2-1 mg/dl Direct Bilirubin 0.2 0-0.2 mg/dl Aspartate Amino Transf (AST/SGOT) 15 15-37 U/L Alanine Aminotransferase (ALT/SGPT) 18 12-78 U/L Alkaline Phosphatase 75 45-117 U/L Total Protein 7.8 6.4-8.2 gm/dl Albumin 3.7 3.4-5.0 gm/dl Lipase 303 73-393 U/L Bedside Troponin I 0.000 0-0.045 ng/ml Microbiology Results 07/13/16 Blood Culture, Received Pending 07/13/16 Blood Culture, Received Pending 07/13/16 Urine Culture, Received Pending Diagnostic Radiology CT ABD/PELVIS IMPRESSION: 1. Extensive left perinephric fat stranding/edema with associated mild left hydronephrosis. There are no renal or ureteral stones identified. There are no bladder stones. Therefore, this could be due to a pyelonephritis, recently passed stone, or an occult obstructing lesion. 2. Normal right kidney. 3. Suboptimal evaluation for bowel pathology due to the lack of intravenous and oral contrast. However, there is no definite bowel wall thickening or obstruction. 4. Cholelithiasis. GALLBLADDER US IMPRESSION: Small amount of gallbladder sludge. Normal caliber bile duct. Otherwise negative study. Impression - H&P Impression Assessment and Plan PYELONEPHRITIS, POSSIBLE EARLY SEPSIS NAUSEA, VOMITING, DIARRHEA - admit to med/surg - patient presenting with nausea, vomiting, and diarrhea followed by abdominal pain; on CT abd/pelvis found to have extensive left perinephric fat stranding/ edema with associated mild left hydronephrosis, no renal, ureteral, or bladder stones identified - ? due to a pyelonephritis, recently passed stone, or an occult obstructing lesion. - will obtain renal US to evaluate for lesion; microscopic hematuria noted - could be due to infection - gallbladder US shows small amount of sludge - no acute cholecystitis; patient reports she was scheduled for cholecystectomy in the past however had to cancel due to other procedures - recommend outpatient follow up - U/A suggesting UTI - in the ER - WBC 15K, mild tachycardia with HR in the low 90s, BP stable; lactate pending - s/p Levaquin in the ER, will continue with - urine and blood cultures OMAR - baseline creat 0.9 -> 1.8 today - likely prerenal due to GI loss from vomiting and diarrhea - IVF, hold ACEi - follow up labs in AM HTN - BP elevated, however patient did not her meds this AM - was recently prescribed Norvasc by PCP however patient did start - due to OMAR, will hold ACEi and start Norvasc - PRN hydralazine DM - hgb a1c 5.9 06/2016 - holding oral agents and utilizing SSI while hospitalized DVT PROPHYLAXIS - SCDs due to microscopic hematuria DISPO - In my clinical judgment this beneficiary meets acute admission criteria, established by [facility], that includes being hospitalized through two midnights. Attending Addendum: The patient was seen and examined Admitted with Pyelonephritis Complains of severe pain in left Renal angle,Loin that goes to the groin Has chills O/E Hemodynamically stable Chest-clear to auscultate bilaterally Heart-Regular Abdomen-soft,tender left renal Angle and left lower Quadrant Labs and Imaging studies were reviewed Has increase WCC ,Blood and Urine C/S sent Levaquin on board Agree with the assessment and plan Dr Amita Bosch Advanced Directives Existing Living Will: Yes Existing Power of Silo Worker: No VTE Prophylaxis VTE Risk Assessment Done? Y/N: Yes Risk Level: Moderate Physical Exam (per Admitting): General Appearance: no apparent distress Head: normocephalic Eyes: normal inspection ENT: hearing grossly normal Neck: supple, no JVD Respiratory/Chest: lungs clear, normal breath sounds, no respiratory distress Cardiovascular: regular rate, rhythm, no edema, normal peripheral pulses Abdomen/GI: normal bowel sounds, soft, + tenderness (epigastric, LLQ ) Back: no CVA tenderness Extremities/Musculoskelatal: normal inspection, no calf tenderness Neurologic/Psych: no motor/sensory deficits, alert, normal mood/affect, oriented x 3 Skin: normal color, warm/dry Hospital Course Nausea and Vomiting-resolved Could be secondary to Gastritis due to medication,PUD/Reflux Symptomatic management Denies any symptoms-no dysuria Resolved SEPSIS PYELONEPHRITIS, GM NEGATIVE BACTEREMIA-E Coli ,pansensitive - patient preseNTED with nausea, vomiting, and diarrhea followed by abdominal pain; on CT abd/pelvis found to have extensive left perinephric fat stranding/ edema with associated mild left hydronephrosis, no renal, ureteral, or bladder stones identified - due to a pyelonephritis, recently passed stone, or an occult obstructing lesion. -REnal US-mild left Hydronephrosis - gallbladder US shows small amount of sludge -was on Levaquin -Changed to Zosyn last night 07/14/16 - appreciate Urology and ID input -S/P cysto left stent placement 07/14/16 -clinically better -Continue current medication -WCC improved -Discharge on Cipro for 14 days in total Electrolytes imbalance Supplement Recheck at 3PM before discharge OMAR - baseline creat 0.9 -> 1.8 today -secondary to ureteric obstruction -a little better today -further improvement -improved HTN - BP elevated, however patient did not her meds this AM - was recently prescribed Norvasc by PCP however patient did start - PRN hydralazine DM - hgb a1c 5.9 06/2016 - holding oral agents and utilizing SSI while hospitalized DVT PROPHYLAXIS - SCDs due to microscopic hematuria DISPO Likely home today Total time spent on discharge = 35 minutes This includes examination of the patient, discharge planning, medication reconciliation, and communication with other providers. Discharge Instructions Date of Service Jul 17, 2016. Admission Reason for Admission: Pyelonephritis Discharge Discharge Diagnosis / Problem: Pyelonephritis,E Coli Bacteremia Discharge Goals Goal(s): Prevent Disease Progression Activity Recommendations Activity Limitations: resume your previous activity . Instructions / Follow-Up Instructions / Follow-Up Dr Hernandez on 07/21/16 at 1:15PM.Please keep appointment with Urology Current Hospital Diet Patient's current hospital diet: Diabetes Type 2 Diet Discharge Diet Recommended Diet: Diabetes Type 2 Diet Procedures Procedures Performed: Cystoscopy Left Ureteral Stent Insertion Pending Studies Studies pending at discharge: no Medical Emergencies . Who to Call and When: Medical Emergencies: If at any time you feel your situation is an emergency, please call 911 immediately. . Non-Emergent Contact Non-Emergency issues call your: Primary Care Provider . . "Provider Documentation" section prepared by Karime Bosch. VTE Core Measure Inpt VTE Proph given/why not?: SCD's <Electronically signed by Karime Bosch M.D.> Signed: 07/17/16 1503 Signed: Additional Copies To Ghislaine Hernandez D.O.
== END 2016-07-17 17:40 | disposition home or self-care (01) | DRG 872 ==
LOC: ENRESERVDT → ENRESERVTM → C.EDB 06:12 → C.MED 09:43
PROVIDERS: ADMIT Internal Medicine; ATTEND Internal Medicine
PROC: 0T778DZ Dilation of Left Ureter with Intraluminal Device, Via Natural or Artificial Opening Endoscopic (ICD-10-PCS; principal; 2016-07-14 12:00)
DX: A41.51 Sepsis due to Escherichia coli [E. coli] (principal); N12 Tubulo-interstitial nephritis, not specified as acute or chronic; R65.20 Severe sepsis without septic shock; N17.9 Acute kidney failure, unspecified; N13.30 Unspecified hydronephrosis; E11.9 Type 2 diabetes mellitus without complications; I10 Essential (primary) hypertension; Z88.2 Allergy status to sulfonamides; B96.20 Unspecified Escherichia coli [E. coli] as the cause of diseases classified elsewhere; E78.00 Pure hypercholesterolemia, unspecified; N28.89 Other specified disorders of kidney and ureter; K29.70 Gastritis, unspecified, without bleeding; K21.9 Gastro-esophageal reflux disease without esophagitis

== ENCOUNTER 2017-08-26 21:12 | Inpatient (IN) | payer OTHER ==
[~2017-08-26] VITALS: Ht 154.9 cm; Wt 83.3 kg
[~2017-08-26 21:12] MED LIST changes: -ANT PO; +ATOR-24 PO; +CPR500 PO; +GLIP2.5T11 PO; -LISI20TA55 PO; +LISI40TA PO; -NEPA0.6D; +NRV5 PO; -OFLO0.3S4 OPL; -OMEP20CA9 PO; -PRED1SUS3; +PRT40 PO; +TRAV0.00 OP
[2017-08-26] MEDS ORDERED: ONDANSETRON INJ 2 MG/ML 2 ML VIAL IV STA (21:40)
[2017-08-26] MEDS ORDERED: KETOROLAC TROMETHAMINE 30 MG/ML VIAL IV STA (21:40)
[2017-08-26] MEDS ORDERED: ACETAMINOPHEN IV 1,000 MG in EMPTY BAG 0 ML IV ONE (21:45)
[2017-08-26] MEDS ORDERED: SODIUM CHLORIDE 0.9% 1000ML 1,000 ML, SODIUM CHLORIDE 0.9% 1000ML 1,000 ML IV ONE (21:45)
[2017-08-26] MEDS ORDERED: ACETAMINOPHEN 1000 MG/100 ML IV IV ONE (22:21)
[2017-08-26 22:25] LABS: HEMATOCRIT 33.6 % (37-47); HEMOGLOBIN 11.5 g/dL (12.0-16.0); MEAN CELL VOLUME 84.6 fL (80-100); MEAN CORPUSCULAR HGB CONC 34.2 g/dl (32-36); MEAN PLATELET VOLUME 8.3 fL (7.4-10.4); PLATELET COUNT 217 K/uL (130-400); RED CELL DISTRIBUTION WIDTH SD 39.6 fL (36.4-46.3); WHITE BLOOD COUNT 8.44 K/uL (4.8-10.8)
[2017-08-26 22:40] LABS: ALBUMIN 3.6 gm/dl (3.4-5.0); CALCIUM 8.7 mg/dl (8.5-10.1); CREATININE 1.4 mg/dl (0.60-1.20); POTASSIUM 4.2 mmol/L (3.5-5.1)
[2017-08-26] MEDS ORDERED: CEFTRIAXONE SOD INJ 1 GM ADDVIAL IV STA (22:47)
[2017-08-26 22:48] LABS: BASO % 0.1 %; BASO ABS # 0.01 K/uL (0-0.2); EOS % 1.5 %; EOS ABS # 0.13 K/uL (0-0.5); IG# 0.02 K/uL (0.00-0.02); LYMPH % 3.7 %; LYMPH ABS # 0.31 K/uL (1.2-3.4); MONO % 3.3 %; MONO ABS # 0.28 K/uL (0.11-0.59); NEUT % 91.2 %; NEUT ABS # 7.69 K/uL (1.4-6.5)
--- NOTE | 2017-08-26 22:59 | EMERGENCY ROOM VISIT NOTE ---
ED Visit Note First contact with patient: 21:33 I did evaluate and examine this patient myself. I did guide management for the patient. I agree with the PA's assessment as discussed. Please see the PAs dictation for further details. I did independently review the urinalysis and blood work. She has a persistent UTI despite being on antibiotics. She will be hospitalized for further management. She was given IV antibiotics.
[2017-08-26] MEDS ORDERED: DORZ2SOL19 OPB (23:19)
[2017-08-26] MEDS ORDERED: AMLO2.5T PO (23:19)
[2017-08-26] MEDS ORDERED: BRIM0.2S OPB (23:19)
--- NOTE | 2017-08-27 01:16 | EMERGENCY ROOM VISIT NOTE ---
History First contact with patient: 21:33 Chief Complaint: URINARY SYMPTOMS Stated Complaint: BLADDER INFECTION, VOMITING, TIRED Nursing Triage Summary: patient being treated for urinary tract infection with macrobid comes in with increased pain in the left flank area today/ history of stents with past urinary tract infections History of Present Illness The patient is a 67 year old female who presents to the Emergency Room with complaints of urinary tract infection symptoms for the past week. Patient states that she went to a [facility] clinic and was started on Macrobid 6 days ago. The patient was initially doing well with Macrobid, but states that today she has worsening dysuria symptoms as well as fever, nausea, and vomiting. She is unable to tolerate her oral medications because of her nausea. She has a history of pyelonephritis in the past and has been followed by Dr. Carranza of urology. The patient has required a ureteral stent and hospitalization for the pyelonephritis in the past. The patient is not experiencing chest pain, chest tightness, shortness of breath, or upper abdominal discomfort. She does have some left-sided low back pain. She has not taken anything [id number] for pain or fever control. She rates her discomfort a 7/10. The pain does not radiate. Review of Systems More than 10 systems were reviewed and otherwise negative with the exception of history of present illness. Past Medical/Surgical History Medical Problems: (1) DM type 2 (diabetes mellitus, type 2) (2) Dyslipidemia (3) HTN (hypertension) (4) Hydronephrosis (5) Pyelonephritis (6) Pyelonephritis Surgical Problems: (1) History of abdominal hysterectomy (2) History of cataract surgery (3) History of hysterectomy Family History Diabetes mellitus MOTHER Social History Smoking Status: Never Smoker Alcohol Use: none Drug Use: none Marital Status: Housing Status: lives with family Occupation Status: employed Current/Historical Medications Scheduled Amlodipine Besylate (Norvasc), 2.5 MG PO QAM Atorvastatin (Lipitor), 40 MG PO DAILY Brimonidine Tartrate-Timolol M (Combigan), 1 DROP OPB BID Dorzolamide Hcl (Trusopt Oph), 1 DROPS OPB BID Glipizide (Glipizide Er), 1 TAB PO DAILY Lisinopril (Zestril), 40 MG PO QAM Metformin HCl (Metformin HCl ER), 500 MG PO HS Travoprost (Travatan Z), 1 DROPS OP HS Physical Exam Vital Signs Date Time Temp Pulse Resp B/P (MAP) Pulse Ox O2 Delivery O2 Flow Rate FiO2 08/27/17 00:19 72 17 128/65 94 Room Air 08/26/17 23:05 72 17 174/98 94 Room Air 08/26/17 21:23 39.3 83 18 165/74 96 Room Air Physical Exam VITALS: Vitals are noted on the nurse's note and reviewed by myself. Vital signs with noted fever. GENERAL: Well-developed, well-nourished, white female, who is in no acute distress and resting comfortably. Patient is cooperative with the examination. HEART: Regular rate and rhythm with systolic murmur LUNGS: Clear to auscultation bilaterally without wheezes, rales or rhonchi. No retractions or accessory muscle use. ABDOMEN: Positive normal bowel sounds x 4. Soft, nontender, without masses or organomegaly. No guarding or rebound tenderness. No distinct CVA tenderness, however there is some tenderness to percussion in the left lower back MUSCULOSKELETAL: No muscle atrophy, erythema, or edema noted. Full range of motion in all extremities. NEURO: Patient was alert and oriented to person place and time. CN II through XII grossly intact Medical Decision & Procedures Laboratory Results 08/26/17 22:05 Red Blood Count 3.97, Mean Corpuscular Volume 84.6, Mean Corpuscular Hemoglobin 29.0, Mean Corpuscular Hemoglobin Concent 34.2, Mean Platelet Volume 8.3, Neutrophils (%) (Auto) 91.2, Lymphocytes (%) (Auto) 3.7, Monocytes (%) (Auto) 3.3, Eosinophils (%) (Auto) 1.5, Basophils (%) (Auto) 0.1, Neutrophils # (Auto) 7.69, Lymphocytes # (Auto) 0.31, Monocytes # (Auto) 0.28, Eosinophils # (Auto) 0.13, Basophils # (Auto) 0.01 08/26/17 22:05 Test 08/26/17 21:35 08/26/17 22:05 08/26/17 22:13 08/27/17 01:03 Urine Color DK YELLOW Urine Appearance CLOUDY (CLEAR) Urine pH 5.0 (4.5-7.5) Urine Specific [place] 1.017 (1.000-1.030) Urine Protein 2+ (NEG) Urine Glucose (UA) NEG (NEG) Urine Ketones 2+ (NEG) Urine Occult Blood 2+ (NEG) Urine Nitrite POS (NEG) Urine Bilirubin NEG (NEG) Urine Urobilinogen NEG (NEG) Urine Leukocyte Esterase MODERATE (NEG) Urine WBC (Auto) >30 /hpf (0-5) Urine RBC (Auto) 10-30 /hpf (0-4) Urine Hyaline Casts (Auto) 5-10 /lpf (0-5) Urine Epithelial Cells (Auto) 10-20 /lpf (0-5) Urine Bacteria (Auto) 2+ (NEG) Urine Pathogenic Casts /lpf (0) White Blood Count 8.44 K/uL (4.8-10.8) Red Blood Count 3.97 M/uL (4.2-5.4) Hemoglobin 11.5 g/dL (12.0-16.0) Hematocrit 33.6 % (37-47) Mean Corpuscular Volume 84.6 fL (80-100) Mean Corpuscular Hemoglobin 29.0 pg (25-34) Mean Corpuscular Hemoglobin Concent 34.2 g/dl (32-36) Platelet Count 217 K/uL (130-400) Mean Platelet Volume 8.3 fL (7.4-10.4) Neutrophils (%) (Auto) 91.2 % Lymphocytes (%) (Auto) 3.7 % Monocytes (%) (Auto) 3.3 % Eosinophils (%) (Auto) 1.5 % Basophils (%) (Auto) 0.1 % Neutrophils # (Auto) 7.69 K/uL (1.4-6.5) Lymphocytes # (Auto) 0.31 K/uL (1.2-3.4) Monocytes # (Auto) 0.28 K/uL (0.11-0.59) Eosinophils # (Auto) 0.13 K/uL (0-0.5) Basophils # (Auto) 0.01 K/uL (0-0.2) RDW Standard Deviation 39.6 fL (36.4-46.3) RDW Coefficient of Variation 13.0 % (11.5-14.5) Immature Granulocyte % (Auto) 0.2 % Immature Granulocyte # (Auto) 0.02 K/uL (0.00-0.02) Red Blood Cell Morphology Unremarkable Anion Gap 10.0 mmol/L (3-11) Est Creatinine Clear Calc Drug Dose 38.7 ml/min Estimated GFR () 45.3 Estimated GFR (Non- 39.1 BUN/Creatinine Ratio 22.0 (10-20) Calcium Level 8.7 mg/dl (8.5-10.1) Magnesium Level 1.9 mg/dl (1.8-2.4) Total Bilirubin 0.5 mg/dl (0.2-1) Aspartate Amino Transf (AST/SGOT) 19 U/L (15-37) Alanine Aminotransferase (ALT/SGPT) 22 U/L (12-78) Alkaline Phosphatase 86 U/L (45-117) Total Protein 8.0 gm/dl (6.4-8.2) Albumin 3.6 gm/dl (3.4-5.0) Globulin 4.4 gm/dl (2.5-4.0) Albumin/Globulin Ratio 0.8 (0.9-2) Lipase 209 U/L (73-393) Thyroid Stimulating Hormone (TSH) 0.496 uIu/ml (0.300-4.500) Bedside Lactic Acid Venous 1.08 mmol/L (0.90-1.70) Medications Administered Medications (Trade) Dose Ordered Sig/Hollis Route Start Time Stop Time Status Last Admin Dose Admin Sodium Chloride/ Sodium Chloride 2,000 ml @ 999 mls/hr Q2H1M ONCE IV 08/26/17 21:45 08/26/17 23:45 DC 08/26/17 21:45 999 MLS/HR Ketorolac Tromethamine (Toradol Inj) 30 mg NOW STAT IV 08/26/17 21:40 08/26/17 21:46 DC 08/26/17 22:28 30 MG Ondansetron HCl (Zofran Inj) 4 mg NOW STAT IV 08/26/17 21:40 08/26/17 21:46 DC 08/26/17 22:27 4 MG Acetaminophen (Ofirmev Iv) 1,000 mg STK-MED ONCE IV 08/26/17 22:21 08/26/17 22:22 DC 08/26/17 22:28 1,000 MG Ceftriaxone Sodium (Rocephin Inj) 1 gm NOW STAT IV 08/26/17 22:47 08/26/17 22:48 DC 08/26/17 23:17 1 GM ED Course Physical exam and history were performed. Nursing notes, EMR, and Medication List were personally reviewed. Patient appears to have fever, chills, and dysuria symptoms that are worsening tonight. She is currently being treated for a UTI and has a history of this in the past. IV access was established and labs were obtained. The patient was hydrated with 2 L normal saline. Urine and blood cultures were obtained. The patient was given IV Toradol and IV Tylenol, as well as IV Zofran as she is having difficulty with nausea. The patient's blood work is as above and was reviewed. She does not have a significantly elevated white blood cell count or gross anemia. Her urine is with signs of infection. The patient's lactic acid was negative, and because of this I did elect to give her a dose of IV Rocephin. The patient was monitored for some time here in the department. I discussed the case with my attending physician, Dr. Way, who also independently evaluated the patient. Considering the patient has failed outpatient treatment and has a high fever with continued dysuria symptoms we feel she is a good candidate for remaining here in the hospital. I discussed the case with the on- call [facility] hospitalist, who agreed to evaluate the patient here in the department. Please see their dictation for further patient course, plan, and disposition. The chart was completed utilizing [employer] Speech Voice Recognition Software. Grammatical errors, random word insertions, pronoun errors, and incomplete sentences are an occasional consequence of this system due to software limitations, ambient noise, and hardware issues. Any formal questions or concerns about the content, text, or information contained within the body of this dictation should be directly addressed to the provider for clarification. . Medical Decision Differential diagnosis: Etiologies such as UTI, pyelonephritis, sepsis, Sirs, renal colic, appendicitis , diverticulitis, mesenteric ischemia, aortic pathology, infections, inflammatory bowel disease, PUD, biliary pathology, as well as others were entertained. Impression Primary Impression: Urinary tract infection Additional Impressions: Failure of outpatient treatment Fever Departure Information Referrals Ghislaine Hernandez D.O. (PCP) Patient Instructions My [facility] Problem Qualifiers Primary Impression: Urinary tract infection Urinary tract infection type: acute cystitis Hematuria presence: without hematuria Qualified Codes: N30.00 - Acute cystitis without hematuria Additional Impressions: Fever Encounter type: initial encounter
[2017-08-27] MEDS ORDERED: DEXTROSE 50% 50 ML SYR IV PRN (01:30)
[2017-08-27] MEDS ORDERED: GLUCAGON FOR INJ 1 MG VIAL SQ PRN (01:30)
[2017-08-27] MEDS ORDERED: GLUCOSE 40% GEL 15 GM TUBE PO PRN (01:30)
[2017-08-27] MEDS ORDERED: PROCHLORPERAZINE INJ 5 MG in SYRINGE 4 ML IV PRN (01:30)
[2017-08-27] MEDS ORDERED: CARBOHYDRATES FOR HYPOGLYCEMIA PO PRN (01:30)
[2017-08-27] MEDS ORDERED: GLUCOSE 10 TABS/TUBE PO PRN (01:30)
[2017-08-27] MEDS ORDERED: HYDROmorphone INJ 0.5 MG/0.5 ML SYR IV PRN (01:30)
[2017-08-27] MEDS ORDERED: TRAMADOL HCL 50 MG TAB PO PRN (01:30)
[2017-08-27] MEDS ORDERED: SODIUM CHLORIDE 0.9% 1000ML 1,000 ML IV SCH (01:30)
[2017-08-27 02:15] VITALS: BP 116/71; PULSE 70; TEMP 36.9; O2SAT 98; Ht 154.9 cm; Wt 83.3 kg
[2017-08-27] MEDS ORDERED: INSULIN GLARGINE SOLOSTAR 100 UNITS/ML 3 ML PEN SC ONE (03:30)
[2017-08-27] MEDS ORDERED: INSULIN ASPART 100 UNITS/ML 3 ML PEN SC ONE (03:30)
--- NOTE | 2017-08-27 06:02 | HISTORY & PHYSICAL EXAMINATION ---
DATE OF ADMISSION: 08/27/2017 PRIMARY CARE DOCTOR: Dr. Hernandez. CHIEF COMPLAINT: Left flank pain, nausea, and vomiting. HISTORY OF PRESENT ILLNESS: History obtained from patient and records. Medical history significant for hypertension, hyperlipidemia, DM2 on oral meds, recurrent UTI, history of congenital ureterocele. chronic anemia, baseline hemoglobin of 9-10. Glaucoma Recent confinement last year for sepsis 2 to E. coli UTI. Last few days, patient noted dysuria, left flank pain, fever of 101. PCP's office, prescribed Macrodantin for possible UTI. Patient had worsening symptoms despite compliance. No chest pain, no shortness of breath. Subsequent nausea, emesis. At the Emergency Room, patient received IV Ceftriaxone for UTI. MEDICAL HISTORY: As above. SURGICAL HISTORY: She has had hysterectomy, cataract surgery. The patient also had other eye surgeries, exploratory laparotomy. HOME MEDICATIONS: Include Norvasc, Lipitor, Combigan, Trusopt, glipizide, Zestril. ALLERGIES: ALLERGIC TO BEE STINGS, CIPRO, SULFA. FAMILY HISTORY: Diabetes. PERSONAL AND SOCIAL HISTORY: Nonsmoker, no ETOH intake. 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 REVIEW OF SYSTEMS: As per HPI. All 10 systems reviewed. All other ROS negative PHYSICAL EXAMINATION: VITAL SIGNS: Blood pressure was noted to be 174/90, later 140/80, pulse rate 72, RR 17, temperature 39.3. GENERAL: Noted to be pleasant, obese. No respiratory distress. SKIN: Pallor, warm. HEENT: Pale palpebral conjunctivae. No ptosis. Dry mucosa. NECK: Short neck, supple. CHEST: Clear to auscultation. No tenderness. HEART: Regular rate and rhythm, no murmur. ABDOMEN: Some distention, nontender. BACK: Left flank tenderness. EXTREMITIES: Minimal LE edema noted. No gross deformities. No tenderness NEUROLOGIC: Coherent. No gross focality. LABORATORY DATA: Hemoglobin was noted to be 11.5, hematocrit 30.6, white count 8.44, platelets 217. Sodium noted to be 136, chloride 105, CO2 23, creatinine 1.4 Glucose was noted to be 192. Lactic acid was noted to be 1. UA showed nitrite positive urine. ASSESSMENT: 1. Complicated urinary tract infection Failed outpatient treatment hx congenital ureterocele no overt sepsis for now rule out obstructive uropathy. 2. Hypertension, slightly elevated. 3. Hyperlipidemia on statin therapy. 4. DM2, on oral meds, well controlled as of recent outpatient HgA1c of 5.9 last March 2017. 5. Chronic anemia, hemoglobin better than baseline likely secondary to hemoconcentration PLAN: GMF CS cultures, IV ceftriaxone for now. Need CT abdomen and pelvis, rule out obstructive uropathy. Monitor creatinine response to IV fluids. Hold home SALOME inhibitor until creatinine at baseline. ISS BG goal 140-180. May need basal insulin to attain goal. DVT prophylaxis, Heparin subcutaneous. Full code MTDD
[2017-08-27 06:26] LABS: EOS % 1.5 %; EOS ABS # 0.11 K/uL (0-0.5); HEMATOCRIT 33.7 % (37-47); HEMOGLOBIN 11.3 g/dL (12.0-16.0); IG# 0.02 K/uL (0.00-0.02); LYMPH ABS # 0.29 K/uL (1.2-3.4); MEAN CELL VOLUME 86.2 fL (80-100); MEAN CORPUSCULAR HEMOGLOBIN 28.9 pg (25-34); MEAN CORPUSCULAR HGB CONC 33.5 g/dl (32-36); MONO % 2.9 %; MONO ABS # 0.21 K/uL (0.11-0.59); NEUT % 91.3 %; NEUT ABS # 6.56 K/uL (1.4-6.5); PLATELET COUNT 224 K/uL (130-400); RED CELL DISTRIBUTION WIDTH CV 13.2 % (11.5-14.5); RED CELL DISTRIBUTION WIDTH SD 41.8 fL (36.4-46.3); WHITE BLOOD COUNT 7.19 K/uL (4.8-10.8)
[2017-08-27] MEDS ORDERED: SODIUM CHLORIDE 0.9% 1000ML 1,000 ML IV ONE (06:30)
[2017-08-27 06:50] LABS: CALCIUM 8.5 mg/dl (8.5-10.1); CREATININE 1.99 mg/dl (0.60-1.20); POTASSIUM 4.2 mmol/L (3.5-5.1)
[2017-08-27 07:20] LABS: INR 1.2 (0.9-1.1); PTT PATIENT 26.3 SECONDS (21.0-31.0)
[2017-08-27 07:27] VITALS: BP 130/64; PULSE 79; TEMP 36.9; O2SAT 97
[2017-08-27] MEDS ORDERED: ATORVASTATIN 40 MG TAB PO SCH (08:00)
[2017-08-27] MEDS: AMLODIPINE BESYLATE 5 MG TAB PO SCH (08:10)
[2017-08-27] MEDS: DORZOLAMIDE HCL 2% OPH SOLN 10 ML BTL OPB SCH ×2 (08:11→18:09)
[2017-08-27] MEDS: TIMOLOL MALEATE 0.5% OP SOLN 5 ML BTL OP SCH ×2 (08:11→18:10)
[2017-08-27] MEDS: BRIMONIDINE TARTRATE 0.2% 5ML OPB SCH ×2 (08:11→18:09)
[2017-08-27] MEDS: INSULIN ASPART 100 UNITS/ML 3 ML PEN SC SCH ×4 (08:19→21:00)
[2017-08-27 08:29] LABS: HEMOGLOBIN A1C 6.6 % (4.5-5.6)
[2017-08-27] MEDS ORDERED: NURSING VERBAL MED ORDER ONE (08:30)
--- NOTE | 2017-08-27 08:39 | DIAGNOSTIC IMAGING REPORT ---
ABD/PELVIS NO IV OR ORAL CONT CLINICAL HISTORY: 67 years-old Female presenting with flank pain, vomiting, history of hysterectomy. TECHNIQUE: Multidetector CT of the abdomen and pelvis was performed without the use of intravenous contrast. IV contrast: None. A dose lowering technique was used consistent with the principles of ALARA (as low as reasonably achievable). COMPARISON: 07/13/2016. CT DOSE (mGy.cm): The estimated cumulative dose is 623.07 mGy.cm. FINDINGS: Dairy Grazer topogram: Unremarkable. Lung bases: Minimal basilar opacities, likely atelectasis. Mosaic attenuation could suggest small airways disease. Punctate fissural nodule in the left lower lobe (series 3 image 17). Normal heart size. No pericardial or pleural effusion. Liver: Normal morphology. Density consistent with hepatic steatosis. Biliary: No gross biliary ductal dilatation allowing for noncontrast technique. Gallbladder contains gallstones. Pancreas: Normal noncontrast appearance. Spleen: Normal noncontrast appearance. Adrenal glands: Normal noncontrast appearance. Kidneys and ureters: Minimal bilateral perinephric fat stranding, nonspecific. No nephrolithiasis. No hydronephrosis. Normal noncontrast appearance of the kidneys. Bladder: Circumferential bladder wall thickening. Pelvic organs: Uterus surgically absent. No adnexal masses. Bowel: Mild discontinuous distention of several loops of jejunum. No convincing evidence of bowel obstruction. No gross evidence of intussusception. Fluid noted throughout the small bowel. Peritoneal cavity: No free fluid or intraperitoneal gas. Lymph nodes: Few prominent lymph nodes in the portacaval region likely reactive. No gross evidence of pathologically enlarged lymph nodes by CT size criteria allowing for noncontrast technique. Vasculature: Dense calcified atherosclerotic plaque likely implies the presence of diabetes. Abdominal wall: Diastasis of the rectus abdominis. Fat-containing ventral midline hernia in the periumbilical region at the superior extent of a surgical incision site. No evidence of associated inflammatory change to suggest strangulation. Musculoskeletal: Degenerative changes of the spine. Degenerative changes of the bilateral hips. IMPRESSION: 1. Fluid noted throughout the small bowel, which is nonspecific. This could be physiologic or seen in the setting of mild enteritis or celiac disease among other etiologies. 2. Mild circumferential bladder wall thickening could suggest cystitis. Correlate with urinalysis. 3. Hepatic steatosis. Correlate with liver function tests to exclude steatohepatitis as a cause for abdominal pain. 4. Punctate fissural nodule in the left lower lobe of the lung. Electronically signed by: Joseph Mauricio M.D. 08/27/2017 8:37 AM Dictated Date/Time: 08/27/2017 7:44 AM
[2017-08-27] MEDS: HEPARIN SOD 5000 UNIT/0.5 ML CARP SQ SCH ×2 (12:49→21:12)
[2017-08-27] MEDS: ACETAMINOPHEN 325 MG TAB PO PRN ×2 (14:46→23:47)
[2017-08-27 15:15] VITALS: BP 123/64; PULSE 77; TEMP 37.9; O2SAT 96
[2017-08-27 16:00] VITALS: O2SAT 96
[2017-08-27 16:03] VITALS: TEMP 37.5
--- NOTE | 2017-08-27 18:03 | Progress Note ---
Internal Med Progress Note Date of Service: August 27, 2017. Provider Documentation: SUBJECTIVE: Patient was seen earlier today and not in any acute distress. Denies pain of flanks or back. Denies pain with urination. PHYSICAL EXAMINATION: GENERAL: no acute distress NECK: no JVD CHEST: Clear to auscultation bilaterally, no wheezing, no use of accessory muscles HEART: Regular rate and rhythm, no murmur. ABDOMEN: Some distention, nontender. BACK: no costovertebral angle tenderness EXTREMITIES: Minimal lower extremity edema. ASSESSMENT & PLAN: Complicated urinary tract infection, hx of congenital ureterocele -Failed outpatient antibiotic treatment -patient has been on empirically on ceftriaxone because of positive UA -UA did speciate as a gram negative bacilli; previous Urine cultures have been poe sensitive E.coli in urine, patient without sepsis, continue ceftriaxone for now and continue to follow urine speciation -f/u blood cultures CT abdomen and Pelvis on admission performed to rule out obstructive uropathy and this was ruled out Following impressions radiology impressions 1. Fluid noted throughout the small bowel, which is nonspecific. This could be physiologic or seen in the setting of mild enteritis or celiac disease among other etiologies. 2. Mild circumferential bladder wall thickening could suggest cystitis. Correlate with urinalysis. 3. Hepatic steatosis. Correlate with liver function tests to exclude steatohepatitis as a cause for abdominal pain. 4. Punctate fissural nodule in the left lower lobe of the lung. -Monitor bowel movements and liver function due to nonspecific radiology impressions as above / consider a follow up CT chest scan if concerning for lung nodule but patient without acute respiratory issues currently OMAR -continue IV fluids, Hold home SALOME inhibitor for now Hypertension -only on lose dose amlodipine with SALOME inhibitor held, blood pressure control adequate and can continue amlodipine only for now Hyperlipidemia on statin therapy. -continue statin DM2, on oral meds -outpatient HgA1c of 5.9 last March 2017. -continue holding oral medications, continue sliding scale insulin while patient being treated for bacterial infection Chronic anemia -CBC stable DVT prophylaxis, Heparin subcutaneous. Full code Vital Signs: Date Time Temp Pulse Resp B/P (MAP) Pulse Ox O2 Delivery O2 Flow Rate FiO2 08/27/17 16:03 37.5 08/27/17 16:00 96 Room Air 08/27/17 15:15 37.9 77 18 123/64 (83) 96 5/21/18 11:22 Room Air 08/27/17 07:27 36.9 79 18 130/64 (86) 97 08/27/17 02:15 36.9 70 18 116/71 98 Room Air 08/27/17 02:10 65 18 124/60 95 08/27/17 01:30 67 18 139/87 96 Room Air 08/27/17 01:00 70 18 143/64 93 Room Air 08/27/17 00:19 72 17 128/65 94 Room Air 08/26/17 23:05 72 17 174/98 94 Room Air 08/26/17 21:23 39.3 83 18 165/74 96 Room Air Lab Results: Results Past 24 Hours Test 08/26/17 21:35 08/26/17 22:05 08/26/17 22:13 08/27/17 03:56 Range/Units Urine Color DK YELLOW Urine Appearance CLOUDY CLEAR Urine pH 5.0 4.5-7.5 Urine Specific [place] 1.017 1.000-1.030 Urine Protein 2+ NEG Urine Glucose (UA) NEG NEG Urine Ketones 2+ NEG Urine Occult Blood 2+ NEG Urine Nitrite POS NEG Urine Bilirubin NEG NEG Urine Urobilinogen NEG NEG Urine Leukocyte Esterase MODERATE NEG Urine WBC (Auto) >30 0-5 /hpf Urine RBC (Auto) 10-30 0-4 /hpf Urine Hyaline Casts (Auto) 5-10 0-5 /lpf Urine Epithelial Cells (Auto) 10-20 0-5 /lpf Urine Bacteria (Auto) 2+ NEG Urine Pathogenic Casts 0 /lpf White Blood Count 8.44 4.8-10.8 K/uL Red Blood Count 3.97 4.2-5.4 M/uL Hemoglobin 11.5 12.0-16.0 g/dL Hematocrit 33.6 37-47 % Mean Corpuscular Volume 84.6 80-100 fL Mean Corpuscular Hemoglobin 29.0 25-34 pg Mean Corpuscular Hemoglobin Concent 34.2 32-36 g/dl Platelet Count 217 130-400 K/uL Mean Platelet Volume 8.3 7.4-10.4 fL Neutrophils (%) (Auto) 91.2 % Lymphocytes (%) (Auto) 3.7 % Monocytes (%) (Auto) 3.3 % Eosinophils (%) (Auto) 1.5 % Basophils (%) (Auto) 0.1 % Neutrophils # (Auto) 7.69 1.4-6.5 K/uL Lymphocytes # (Auto) 0.31 1.2-3.4 K/uL Monocytes # (Auto) 0.28 0.11-0.59 K/uL Eosinophils # (Auto) 0.13 0-0.5 K/uL Basophils # (Auto) 0.01 0-0.2 K/uL RDW Standard Deviation 39.6 36.4-46.3 fL RDW Coefficient of Variation 13.0 11.5-14.5 % Immature Granulocyte % (Auto) 0.2 % Immature Granulocyte # (Auto) 0.02 0.00-0.02 K/uL Red Blood Cell Morphology Unremarkable Sodium Level 137 136-145 mmol/L Potassium Level 4.2 3.5-5.1 mmol/L Chloride Level 105 98-107 mmol/L Carbon Dioxide Level 23 21-32 mmol/L Anion Gap 10.0 3-11 mmol/L Blood Urea Nitrogen 31 7-18 mg/dl Creatinine 1.40 0.60-1.20 mg/dl Est Creatinine Clear Calc Drug Dose 38.7 ml/min Estimated GFR () 45.3 Estimated GFR (Non- 39.1 BUN/Creatinine Ratio 22.0 10-20 Random Glucose 192 70-99 mg/dl Estimated Average Glucose 143 mg/dl Hemoglobin A1c 6.6 4.5-5.6 % Calcium Level 8.7 8.5-10.1 mg/dl Magnesium Level 1.9 1.8-2.4 mg/dl Total Bilirubin 0.5 0.2-1 mg/dl Aspartate Amino Transf (AST/SGOT) 19 15-37 U/L Alanine Aminotransferase (ALT/SGPT) 22 12-78 U/L Alkaline Phosphatase 86 45-117 U/L Total Protein 8.0 6.4-8.2 gm/dl Albumin 3.6 3.4-5.0 gm/dl Globulin 4.4 2.5-4.0 gm/dl Albumin/Globulin Ratio 0.8 0.9-2 Lipase 209 73-393 U/L Thyroid Stimulating Hormone (TSH) 0.496 0.300-4.500 uIu/ml Bedside Lactic Acid Venous 1.08 0.90-1.70 mmol/L Bedside Glucose 178 70-90 mg/dl Test 08/27/17 05:09 08/27/17 06:36 08/27/17 07:38 08/27/17 12:03 Range/Units White Blood Count 7.19 4.8-10.8 K/uL Red Blood Count 3.91 4.2-5.4 M/uL Hemoglobin 11.3 12.0-16.0 g/dL Hematocrit 33.7 37-47 % Mean Corpuscular Volume 86.2 80-100 fL Mean Corpuscular Hemoglobin 28.9 25-34 pg Mean Corpuscular Hemoglobin Concent 33.5 32-36 g/dl Platelet Count 224 130-400 K/uL Mean Platelet Volume 9.0 7.4-10.4 fL Neutrophils (%) (Auto) 91.3 % Lymphocytes (%) (Auto) 4.0 % Monocytes (%) (Auto) 2.9 % Eosinophils (%) (Auto) 1.5 % Basophils (%) (Auto) 0.0 % Neutrophils # (Auto) 6.56 1.4-6.5 K/uL Lymphocytes # (Auto) 0.29 1.2-3.4 K/uL Monocytes # (Auto) 0.21 0.11-0.59 K/uL Eosinophils # (Auto) 0.11 0-0.5 K/uL Basophils # (Auto) 0.00 0-0.2 K/uL RDW Standard Deviation 41.8 36.4-46.3 fL RDW Coefficient of Variation 13.2 11.5-14.5 % Immature Granulocyte % (Auto) 0.3 % Immature Granulocyte # (Auto) 0.02 0.00-0.02 K/uL Sodium Level 138 136-145 mmol/L Potassium Level 4.2 3.5-5.1 mmol/L Chloride Level 105 98-107 mmol/L Carbon Dioxide Level 23 21-32 mmol/L Anion Gap 10.0 3-11 mmol/L Blood Urea Nitrogen 36 7-18 mg/dl Creatinine 1.99 0.60-1.20 mg/dl Est Creatinine Clear Calc Drug Dose 27.2 ml/min Estimated GFR () 29.6 Estimated GFR (Non- 25.5 BUN/Creatinine Ratio 18.0 10-20 Random Glucose 174 70-99 mg/dl Calcium Level 8.5 8.5-10.1 mg/dl Prothrombin Time 12.4 9.0-12.0 SECONDS Prothromb Time International Ratio 1.2 0.9-1.1 Activated Partial Thromboplast Time 26.3 21.0-31.0 SECONDS Partial Thromboplastin Ratio 1.0 Bedside Glucose 161 199 70-90 mg/dl Test 08/27/17 16:45 Range/Units Bedside Glucose 194 70-90 mg/dl Microbiology Results 08/26/17 Blood Culture, Received Pending 08/26/17 Blood Culture, Received Pending 08/26/17 Urine Culture - Preliminary, Resulted Gram Negative Bacilli
[2017-08-27] MEDS: SODIUM CHLORIDE 0.9% 1000ML 1,000 ML IV SCH (18:19)
[2017-08-27] MEDS: ATORVASTATIN 40 MG TAB PO SCH (21:08)
[2017-08-27] MEDS: TRAVOPROST Z 0.004% OPH SOLN 2.5 ML BTL OP SCH (21:08)
[2017-08-27 22:04] VITALS: TEMP 37
[2017-08-27] MEDS: CEFTRIAXONE SOD INJ 1 GM in DEXTROSE 5% ADD-VANTAGE 50ML 50 ML IV SCH (22:36)
[2017-08-28] VITALS: BP 130/57; PULSE 77; TEMP 37.1; O2SAT 97
[2017-08-28] MEDS: SODIUM CHLORIDE 0.9% 1000ML 1,000 ML IV SCH ×3 (03:36→22:33)
[2017-08-28 06:26] LABS: BASO % 0.2 %; BASO ABS # 0.01 K/uL (0-0.2); EOS % 4.8 %; EOS ABS # 0.31 K/uL (0-0.5); HEMATOCRIT 30.9 % (37-47); HEMOGLOBIN 10.5 g/dL (12.0-16.0); IG# 0.01 K/uL (0.00-0.02); LYMPH % 23.3 %; LYMPH ABS # 1.49 K/uL (1.2-3.4); MEAN CELL VOLUME 85.6 fL (80-100); MEAN CORPUSCULAR HEMOGLOBIN 29.1 pg (25-34); MEAN PLATELET VOLUME 8.9 fL (7.4-10.4); MONO % 3.6 %; MONO ABS # 0.23 K/uL (0.11-0.59); NEUT % 67.9 %; NEUT ABS # 4.35 K/uL (1.4-6.5); PLATELET COUNT 185 K/uL (130-400); RED CELL DISTRIBUTION WIDTH CV 13.1 % (11.5-14.5); RED CELL DISTRIBUTION WIDTH SD 41.4 fL (36.4-46.3)
[2017-08-28] MEDS: HEPARIN SOD 5000 UNIT/0.5 ML CARP SQ SCH ×3 (06:28→20:45)
[2017-08-28 07:05] LABS: ALBUMIN 2.7 gm/dl (3.4-5.0); CALCIUM 7.6 mg/dl (8.5-10.1); CREATININE 1.57 mg/dl (0.60-1.20); POTASSIUM 3.8 mmol/L (3.5-5.1); TOTAL PROTEIN 6.2 gm/dl (6.4-8.2)
[2017-08-28 07:38] VITALS: BP 135/74; PULSE 72; TEMP 36.8; O2SAT 98
[2017-08-28] MEDS: AMLODIPINE BESYLATE 5 MG TAB PO SCH (07:41)
[2017-08-28] MEDS: BRIMONIDINE TARTRATE 0.2% 5ML OPB SCH ×2 (07:42→19:26)
[2017-08-28] MEDS: TIMOLOL MALEATE 0.5% OP SOLN 5 ML BTL OP SCH ×2 (07:43→19:25)
[2017-08-28] MEDS: DORZOLAMIDE HCL 2% OPH SOLN 10 ML BTL OPB SCH ×2 (07:43→19:26)
[2017-08-28 08:00] VITALS: O2SAT 98
[2017-08-28] MEDS: INSULIN GLARGINE SOLOSTAR 100 UNITS/ML 3 ML PEN SC SCH (08:35)
[2017-08-28] MEDS: INSULIN ASPART 100 UNITS/ML 3 ML PEN SC SCH ×4 (08:35→20:42)
--- NOTE | 2017-08-28 14:09 | Progress Note ---
Internal Med Progress Note Date of Service: August 28, 2017. Provider Documentation: SUBJECTIVE: Seen and examined at bedside Feels better Denies flank pain, SOB, chest pain, dizziness No other complaints OBJECTIVE: Vital Signs-as noted below Physical Exam: General Appearance:Moderately built and nourished, no apparent distress Head: normocephalic, Atraumatic Eyes: normal inspection, EOMI, PERRL Neck: supple, Trachea midline Respiratory/Chest: Normal breath sounds, CTA Cardiovascular: S1, S2, No murmur Abdomen/GI:Soft, Non tender, Bowel sounds present Extremities/Musculoskelatal:normal inspection, no edema Neurologic/Psych:AAOX3, grossly no focal neurological deficits Skin: normal color, warm Lab data as noted below. ASSESSMENT & PLAN: Complicated UTI H/O congenital ureterocele Failed outpatient antibiotic treatment (Nitrofurantoin) Urine culture:Klebsiella Pneumonia Blood culture: No growth to date Incidental finding of Punctate fissural nodule in the left lower lobe of the lung Needs follow up as outpatient OMAR: Cr trending towards normal continue IV fluids Hold home SALOME inhibitor Hypertension Stable Continue amlodipine Hyperlipidemia. continue statin DM II: outpatient HgA1c of 5.9 last March 2017. Continue ISS, basal Insulin monitor BGs Chronic anemia stable DVT Px: Heparin SQ Code Status Full code Disposition: Expect to discharge home when stable Vital Signs: Date Time Temp Pulse Resp B/P (MAP) Pulse Ox O2 Delivery O2 Flow Rate FiO2 08/28/17 08:00 98 Room Air 08/28/17 07:38 36.8 72 18 135/74 (94) 98 Room Air 08/28/17 00:10 Room Air 08/28/17 00:00 37.1 77 18 130/57 (81) 97 Room Air 08/27/17 22:04 37.0 08/27/17 16:03 37.5 08/27/17 16:00 96 Room Air 08/27/17 15:15 37.9 77 18 123/64 (83) 96 Lab Results: Results Past 24 Hours Test 08/27/17 16:45 08/27/17 20:55 08/27/17 22:38 08/28/17 05:55 Range/Units Bedside Glucose 194 77 159 70-90 mg/dl White Blood Count 6.40 4.8-10.8 K/uL Red Blood Count 3.61 4.2-5.4 M/uL Hemoglobin 10.5 12.0-16.0 g/dL Hematocrit 30.9 37-47 % Mean Corpuscular Volume 85.6 80-100 fL Mean Corpuscular Hemoglobin 29.1 25-34 pg Mean Corpuscular Hemoglobin Concent 34.0 32-36 g/dl Platelet Count 185 130-400 K/uL Mean Platelet Volume 8.9 7.4-10.4 fL Neutrophils (%) (Auto) 67.9 % Lymphocytes (%) (Auto) 23.3 % Monocytes (%) (Auto) 3.6 % Eosinophils (%) (Auto) 4.8 % Basophils (%) (Auto) 0.2 % Neutrophils # (Auto) 4.35 1.4-6.5 K/uL Lymphocytes # (Auto) 1.49 1.2-3.4 K/uL Monocytes # (Auto) 0.23 0.11-0.59 K/uL Eosinophils # (Auto) 0.31 0-0.5 K/uL Basophils # (Auto) 0.01 0-0.2 K/uL RDW Standard Deviation 41.4 36.4-46.3 fL RDW Coefficient of Variation 13.1 11.5-14.5 % Immature Granulocyte % (Auto) 0.2 % Immature Granulocyte # (Auto) 0.01 0.00-0.02 K/uL Sodium Level 135 136-145 mmol/L Potassium Level 3.8 3.5-5.1 mmol/L Chloride Level 105 98-107 mmol/L Carbon Dioxide Level 22 21-32 mmol/L Anion Gap 8.0 3-11 mmol/L Blood Urea Nitrogen 36 7-18 mg/dl Creatinine 1.57 0.60-1.20 mg/dl Est Creatinine Clear Calc Drug Dose 34.5 ml/min Estimated GFR () 39.4 Estimated GFR (Non- 34.0 BUN/Creatinine Ratio 23.2 10-20 Random Glucose 129 70-99 mg/dl Calcium Level 7.6 8.5-10.1 mg/dl Total Bilirubin 0.2 0.2-1 mg/dl Aspartate Amino Transf (AST/SGOT) 34 15-37 U/L Alanine Aminotransferase (ALT/SGPT) 39 12-78 U/L Alkaline Phosphatase 78 45-117 U/L Total Protein 6.2 6.4-8.2 gm/dl Albumin 2.7 3.4-5.0 gm/dl Globulin 3.5 2.5-4.0 gm/dl Albumin/Globulin Ratio 0.8 0.9-2 Test 08/28/17 08:26 08/28/17 11:45 Range/Units Bedside Glucose 144 155 70-90 mg/dl
[2017-08-28 15:09] VITALS: BP 148/80; PULSE 72; TEMP 36.8; O2SAT 98
[2017-08-28 16:00] VITALS: O2SAT 96
[2017-08-28] MEDS: ATORVASTATIN 40 MG TAB PO SCH (20:42)
[2017-08-28] MEDS: TRAVOPROST Z 0.004% OPH SOLN 2.5 ML BTL OP SCH (20:43)
[2017-08-28] MEDS: CEFTRIAXONE SOD INJ 1 GM in DEXTROSE 5% ADD-VANTAGE 50ML 50 ML IV SCH (22:31)
[2017-08-29 00:12] VITALS: BP 152/70; PULSE 61; TEMP 37; O2SAT 99
[2017-08-29] MEDS: HEPARIN SOD 5000 UNIT/0.5 ML CARP SQ SCH ×3 (05:57→21:08)
[2017-08-29 06:24] LABS: HEMATOCRIT 26.1 % (37-47); HEMOGLOBIN 9.2 g/dL (12.0-16.0); MEAN CELL VOLUME 83.4 fL (80-100); MEAN CORPUSCULAR HEMOGLOBIN 29.4 pg (25-34); MEAN CORPUSCULAR HGB CONC 35.2 g/dl (32-36); MEAN PLATELET VOLUME 8.7 fL (7.4-10.4); PLATELET COUNT 166 K/uL (130-400); RED CELL DISTRIBUTION WIDTH SD 39.5 fL (36.4-46.3); WHITE BLOOD COUNT 6.67 K/uL (4.8-10.8)
[2017-08-29 06:55] LABS: CALCIUM 7.6 mg/dl (8.5-10.1); CREATININE 1.34 mg/dl (0.60-1.20)
[2017-08-29] MEDS: TIMOLOL MALEATE 0.5% OP SOLN 5 ML BTL OP SCH ×2 (07:49→19:53)
[2017-08-29] MEDS: BRIMONIDINE TARTRATE 0.2% 5ML OPB SCH ×2 (07:49→19:53)
[2017-08-29] MEDS: DORZOLAMIDE HCL 2% OPH SOLN 10 ML BTL OPB SCH ×2 (07:50→19:53)
[2017-08-29] MEDS: AMLODIPINE BESYLATE 5 MG TAB PO SCH (07:50)
[2017-08-29 07:54] VITALS: BP 160/72; PULSE 78; TEMP 37.9; O2SAT 94
[2017-08-29] MEDS: INSULIN GLARGINE SOLOSTAR 100 UNITS/ML 3 ML PEN SC SCH (07:58)
[2017-08-29] MEDS: INSULIN ASPART 100 UNITS/ML 3 ML PEN SC SCH ×4 (07:58→20:28)
[2017-08-29 08:00] VITALS: TEMP 37.2
[2017-08-29] MEDS: SODIUM CHLORIDE 0.9% 1000ML 1,000 ML IV SCH ×2 (09:08→23:16)
[2017-08-29 16:04] VITALS: BP 143/84; PULSE 68; TEMP 36.7; O2SAT 96
--- NOTE | 2017-08-29 16:13 | Progress Note ---
Internal Med Progress Note Date of Service: August 29, 2017. Provider Documentation: SUBJECTIVE: Seen and examined at bedside No new complaints Doing well renal function is improving Denies flank pain, SOB, chest pain, dizziness OBJECTIVE: Vital Signs-as noted below Physical Exam: General Appearance:Moderately built and nourished, no apparent distress Head: normocephalic, Atraumatic Eyes: normal inspection, EOMI, PERRL Neck: supple, Trachea midline Respiratory/Chest: Normal breath sounds, CTA Cardiovascular: S1, S2, No murmur Abdomen/GI:Soft, Non tender, Bowel sounds present Extremities/Musculoskelatal:normal inspection, no edema Neurologic/Psych:AAOX3, grossly no focal neurological deficits Skin: normal color, warm Lab data as noted below. ASSESSMENT & PLAN: Complicated UTI H/O congenital ureterocele Failed outpatient antibiotic treatment (Nitrofurantoin) Urine culture:Klebsiella Pneumonia Blood culture: No growth to date Continue Ceftriaxone Day#3 Plan to switch to PO antibiotics tomorrow Incidental finding of Punctate fissural nodule in the left lower lobe of the lung Needs follow up as outpatient OMAR: Cr trending towards normal Cr:1.34 today Decrease IV fluids Hold home SALOME inhibitor Hypertension Stable Continue amlodipine Hyperlipidemia. continue statin DM II: outpatient HgA1c of 5.9 last March 2017. Continue ISS, basal Insulin monitor BGs Chronic anemia stable Hb slightly dropped likely hemodilutional 2/2 IV fluids DVT Px: Heparin SQ Code Status Full code Disposition: Expect to discharge home when stable Vital Signs: Date Time Temp Pulse Resp B/P (MAP) Pulse Ox O2 Delivery O2 Flow Rate FiO2 08/29/17 16:04 36.7 68 18 143/84 (103) 96 Room Air 08/29/17 08:00 37.2 08/29/17 08:00 Room Air 08/29/17 07:54 37.9 78 16 160/72 (101) 94 Room Air 08/29/17 00:15 Room Air 08/29/17 00:12 37.0 61 19 152/70 (97) 99 Room Air 08/28/17 20:05 Room Air Lab Results: Results Past 24 Hours Test 08/28/17 20:37 08/29/17 05:32 08/29/17 07:50 08/29/17 11:44 Range/Units Bedside Glucose 141 134 148 70-90 mg/dl White Blood Count 6.67 4.8-10.8 K/uL Red Blood Count 3.13 4.2-5.4 M/uL Hemoglobin 9.2 12.0-16.0 g/dL Hematocrit 26.1 37-47 % Mean Corpuscular Volume 83.4 80-100 fL Mean Corpuscular Hemoglobin 29.4 25-34 pg Mean Corpuscular Hemoglobin Concent 35.2 32-36 g/dl RDW Standard Deviation 39.5 36.4-46.3 fL RDW Coefficient of Variation 13.0 11.5-14.5 % Platelet Count 166 130-400 K/uL Mean Platelet Volume 8.7 7.4-10.4 fL Sodium Level 141 136-145 mmol/L Potassium Level 4.0 3.5-5.1 mmol/L Chloride Level 113 98-107 mmol/L Carbon Dioxide Level 21 21-32 mmol/L Anion Gap 7.0 3-11 mmol/L Blood Urea Nitrogen 28 7-18 mg/dl Creatinine 1.34 0.60-1.20 mg/dl Est Creatinine Clear Calc Drug Dose 40.4 ml/min Estimated GFR () 47.7 Estimated GFR (Non- 41.2 BUN/Creatinine Ratio 20.7 10-20 Random Glucose 134 70-99 mg/dl Calcium Level 7.6 8.5-10.1 mg/dl
[2017-08-29] MEDS: TRAVOPROST Z 0.004% OPH SOLN 2.5 ML BTL OP SCH (21:05)
[2017-08-29] MEDS: ATORVASTATIN 40 MG TAB PO SCH (21:05)
[2017-08-29] MEDS: CEFTRIAXONE SOD INJ 1 GM in DEXTROSE 5% ADD-VANTAGE 50ML 50 ML IV SCH (21:09)
[2017-08-30 00:25] VITALS: BP 172/78; PULSE 74; TEMP 36.7; O2SAT 99
[2017-08-30 05:55] LABS: BASO % 0.1 %; BASO ABS # 0.01 K/uL (0-0.2); EOS ABS # 0.47 K/uL (0-0.5); HEMOGLOBIN 9.5 g/dL (12.0-16.0); IG# 0.02 K/uL (0.00-0.02); LYMPH % 33.1 %; LYMPH ABS # 2.22 K/uL (1.2-3.4); MEAN CELL VOLUME 84.8 fL (80-100); MEAN CORPUSCULAR HEMOGLOBIN 28.8 pg (25-34); MEAN CORPUSCULAR HGB CONC 33.9 g/dl (32-36); MONO % 4.3 %; MONO ABS # 0.29 K/uL (0.11-0.59); NEUT % 55.2 %; PLATELET COUNT 203 K/uL (130-400); RED CELL DISTRIBUTION WIDTH CV 13.1 % (11.5-14.5); RED CELL DISTRIBUTION WIDTH SD 40.4 fL (36.4-46.3); WHITE BLOOD COUNT 6.71 K/uL (4.8-10.8)
[2017-08-30] MEDS: HEPARIN SOD 5000 UNIT/0.5 ML CARP SQ SCH (06:21)
[2017-08-30 06:34] LABS: ALBUMIN 2.7 gm/dl (3.4-5.0); CALCIUM 7.9 mg/dl (8.5-10.1); CREATININE 1.27 mg/dl (0.60-1.20); POTASSIUM 3.9 mmol/L (3.5-5.1)
[2017-08-30 07:20] VITALS: BP 154/70; PULSE 68; TEMP 36.9; O2SAT 98
[2017-08-30] MEDS: AMLODIPINE BESYLATE 5 MG TAB PO SCH (07:52)
[2017-08-30] MEDS: BRIMONIDINE TARTRATE 0.2% 5ML OPB SCH (07:53)
[2017-08-30] MEDS: DORZOLAMIDE HCL 2% OPH SOLN 10 ML BTL OPB SCH (07:53)
[2017-08-30] MEDS: TIMOLOL MALEATE 0.5% OP SOLN 5 ML BTL OP SCH (07:53)
[2017-08-30 08:00] VITALS: O2SAT 98
[2017-08-30] MEDS ORDERED: CEFDINIR 300 MG CAP PO SCH (08:00)
[2017-08-30] MEDS: INSULIN GLARGINE SOLOSTAR 100 UNITS/ML 3 ML PEN SC SCH (08:55)
[2017-08-30] MEDS: INSULIN ASPART 100 UNITS/ML 3 ML PEN SC SCH (08:55)
--- NOTE | 2017-08-30 10:32 | Progress Note ---
Internal Med Progress Note Date of Service: August 30, 2017. Provider Documentation: SUBJECTIVE: Seen and examined at bedside Feels well today No complaints Denies flank pain, SOB, chest pain, dizziness OBJECTIVE: Vital Signs-as noted below Physical Exam: General Appearance:Moderately built and nourished, no apparent distress Head: normocephalic, Atraumatic Eyes: normal inspection, EOMI, PERRL Neck: supple, Trachea midline Respiratory/Chest: Normal breath sounds, CTA Cardiovascular: S1, S2, No murmur Abdomen/GI:Soft, Non tender, Bowel sounds present Extremities/Musculoskelatal:normal inspection, no edema Neurologic/Psych:AAOX3, grossly no focal neurological deficits Skin: normal color, warm Lab data as noted below. ASSESSMENT & PLAN: Complicated UTI H/O congenital ureterocele Failed outpatient antibiotic treatment (Nitrofurantoin) Urine culture:Klebsiella Pneumonia Blood culture: No growth to date Continue Ceftriaxone Day#4>>Omnicef Day # 1 Incidental finding of Punctate fissural nodule in the left lower lobe of the lung Needs follow up as outpatient OMAR: Cr trending towards normal Cr:1.34>>1.27 DC IV fluids Hold home SALOME inhibitor for now Hypertension Stable Continue amlodipine Hyperlipidemia. continue statin DM II: outpatient HgA1c of 5.9 last March 2017. Continue ISS, basal Insulin monitor BGs Chronic anemia stable Hb slightly dropped likely hemodilutional 2/2 IV fluids DVT Px: Heparin SQ Code Status Full code Disposition: Plan to discharge home when stable Follow up with your PCP on 09/04/17 at 10:15AM Follow up with your Urologist as advised Complete the antibiotic course as prescribed Seek immediate medical attention if your symptoms reoccur or worsen Vital Signs: Date Time Temp Pulse Resp B/P (MAP) Pulse Ox O2 Delivery O2 Flow Rate FiO2 08/30/17 08:00 98 Room Air 08/30/17 07:20 36.9 68 20 154/70 (98) 98 Room Air 08/30/17 00:25 36.7 74 20 172/78 (109) 99 Room Air 08/30/17 00:00 Room Air 08/29/17 16:04 36.7 68 18 143/84 (103) 96 Room Air 08/29/17 16:00 Room Air Lab Results: Results Past 24 Hours Test 08/29/17 11:44 08/29/17 16:43 08/29/17 20:03 08/30/17 05:27 Range/Units Bedside Glucose 148 136 153 70-90 mg/dl White Blood Count 6.71 4.8-10.8 K/uL Red Blood Count 3.30 4.2-5.4 M/uL Hemoglobin 9.5 12.0-16.0 g/dL Hematocrit 28.0 37-47 % Mean Corpuscular Volume 84.8 80-100 fL Mean Corpuscular Hemoglobin 28.8 25-34 pg Mean Corpuscular Hemoglobin Concent 33.9 32-36 g/dl Platelet Count 203 130-400 K/uL Mean Platelet Volume 9.0 7.4-10.4 fL Neutrophils (%) (Auto) 55.2 % Lymphocytes (%) (Auto) 33.1 % Monocytes (%) (Auto) 4.3 % Eosinophils (%) (Auto) 7.0 % Basophils (%) (Auto) 0.1 % Neutrophils # (Auto) 3.70 1.4-6.5 K/uL Lymphocytes # (Auto) 2.22 1.2-3.4 K/uL Monocytes # (Auto) 0.29 0.11-0.59 K/uL Eosinophils # (Auto) 0.47 0-0.5 K/uL Basophils # (Auto) 0.01 0-0.2 K/uL RDW Standard Deviation 40.4 36.4-46.3 fL RDW Coefficient of Variation 13.1 11.5-14.5 % Immature Granulocyte % (Auto) 0.3 % Immature Granulocyte # (Auto) 0.02 0.00-0.02 K/uL Sodium Level 141 136-145 mmol/L Potassium Level 3.9 3.5-5.1 mmol/L Chloride Level 113 98-107 mmol/L Carbon Dioxide Level 22 21-32 mmol/L Anion Gap 6.0 3-11 mmol/L Blood Urea Nitrogen 24 7-18 mg/dl Creatinine 1.27 0.60-1.20 mg/dl Est Creatinine Clear Calc Drug Dose 42.6 ml/min Estimated GFR () 50.9 Estimated GFR (Non- 43.9 BUN/Creatinine Ratio 18.7 10-20 Random Glucose 127 70-99 mg/dl Calcium Level 7.9 8.5-10.1 mg/dl Ionized Calcium 1.14 1.12-1.32 mmol/l Magnesium Level 2.1 1.8-2.4 mg/dl Albumin 2.7 3.4-5.0 gm/dl Test 08/30/17 07:48 Range/Units Bedside Glucose 131 70-90 mg/dl
[2017-08-30] MEDS ORDERED: CEFD300C3 PO (10:33)
--- NOTE | 2017-08-30 10:34 | Discharge Summary ---
Discharge Summary Date of Service August 30, 2017. Discharge Summary Admission Date: August 27, 2017 at 01:18 Discharge Date: August 30, 2017 Discharge Disposition: Home Principal Diagnosis: Complicated UTI Procedures: CT ABD: 1. Fluid noted throughout the small bowel, which is nonspecific. This could be physiologic or seen in the setting of mild enteritis or celiac disease among other etiologies. 2. Mild circumferential bladder wall thickening could suggest cystitis. Correlate with urinalysis. 3. Hepatic steatosis. Correlate with liver function tests to exclude steatohepatitis as a cause for abdominal pain. 4. Punctate fissural nodule in the left lower lobe of the lung. Consultations: None Pending Studies/Follow-Up: Follow up with your PCP on 09/04/17 at 10:15AM Follow up with your Urologist as advised Complete the antibiotic course as prescribed Seek immediate medical attention if your symptoms reoccur or worsen Medication Reconciliation New Medications: Cefdinir (Cefdinir) 300 Mg Cap 300 MG PO BID for 5 Days, #10 CAP Continued Medications: Amlodipine Besylate (Norvasc) 2.5 Mg Tab 2.5 MG PO QAM, TAB Atorvastatin (Lipitor) 40 Mg Tab 40 MG PO DAILY, TAB Brimonidine Tartrate-Timolol M (Combigan) 1 Mahsa Mahsa 1 DROP OPB BID Dorzolamide Hcl (Trusopt Oph) 2 % Mahsa 1 DROPS OPB BID, #30 ML 3 Refills Glipizide (Glipizide Er) 2.5 Mg Tab 1 TAB PO DAILY Lisinopril (Zestril) 40 Mg Tab 40 MG PO QAM, TAB Metformin HCl (Metformin HCl ER) 500 Mg Tabcr 500 MG PO HS Travoprost (Travatan Z) 0.004 % Augie 1 DROPS OP HS, #2.5 ML 2 Refills Admission Information HPI (per Admitting provider): CHIEF COMPLAINT: Left flank pain, nausea, and vomiting. HISTORY OF PRESENT ILLNESS: History obtained from patient and records. Medical history significant for hypertension, hyperlipidemia, DM2 on oral meds, recurrent UTI, history of congenital ureterocele. chronic anemia, baseline hemoglobin of 9-10. Glaucoma Recent confinement last year for sepsis 2 to E. coli UTI. Last few days, patient noted dysuria, left flank pain, fever of 101. PCP's office, prescribed Macrodantin for possible UTI. Patient had worsening symptoms despite compliance. No chest pain, no shortness of breath. Subsequent nausea, emesis. At the Emergency Room, patient received IV Ceftriaxone for UTI. Physical Exam (per Admitting): PHYSICAL EXAMINATION: VITAL SIGNS: Blood pressure was noted to be 174/90, later 140/80, pulse rate 72, RR 17, temperature 39.3. GENERAL: Noted to be pleasant, obese. No respiratory distress. SKIN: Pallor, warm. HEENT: Pale palpebral conjunctivae. No ptosis. Dry mucosa. NECK: Short neck, supple. CHEST: Clear to auscultation. No tenderness. HEART: Regular rate and rhythm, no murmur. ABDOMEN: Some distention, nontender. BACK: Left flank tenderness. EXTREMITIES: Minimal LE edema noted. No gross deformities. No tenderness NEUROLOGIC: Coherent. No gross focality. Hospital Course Complicated UTI H/O congenital ureterocele Failed outpatient antibiotic treatment (Nitrofurantoin) Urine culture:Klebsiella Pneumonia Blood culture: No growth to date Continue Ceftriaxone Day#4>>Omnicef Day # 1 Incidental finding of Punctate fissural nodule in the left lower lobe of the lung Needs follow up as outpatient OMAR: Cr trending towards normal Cr:1.34>>1.27 DC IV fluids Hold home SALOME inhibitor for now Hypertension Stable Continue amlodipine Hyperlipidemia. continue statin DM II: outpatient HgA1c of 5.9 last March 2017. Continue ISS, basal Insulin monitor BGs Chronic anemia stable Hb slightly dropped likely hemodilutional 2/2 IV fluids DVT Px: Heparin SQ Code Status Full code Disposition: Plan to discharge home when stable Follow up with your PCP on 09/04/17 at 10:15AM Follow up with your Urologist as advised Complete the antibiotic course as prescribed Seek immediate medical attention if your symptoms reoccur or worsen Total time spent on discharge = 34 MINUTES This includes examination of the patient, discharge planning, medication reconciliation, and communication with other providers. Discharge Instructions Discharge Instructions Date of Service August 30, 2017. Admission Reason for Admission: Complicated Uti (Urinary Tract Infection) Discharge Discharge Diagnosis / Problem: Complicated UTI Discharge Goals Goal(s): Decrease discomfort, Improve function Activity Recommendations Activity Limitations: resume your previous activity Exercise/Sports Limitations: as tolerated . Instructions / Follow-Up Instructions / Follow-Up Follow up with your PCP on 09/04/17 at 10:15AM Follow up with your Urologist as advised Complete the antibiotic course as prescribed Seek immediate medical attention if your symptoms reoccur or worsen Current Hospital Diet Patient's current hospital diet: Diabetes Type 2 Diet Discharge Diet Recommended Diet: Diabetes Type 2 Diet Pending Studies Studies pending at discharge: no Laboratory Results Hemoglobin A1c Test 08/26/17 22:05 Range/Units Estimated Average Glucose 143 mg/dl Hemoglobin A1c 6.6 H 4.5-5.6 % Medical Emergencies . Who to Call and When: Medical Emergencies: If at any time you feel your situation is an emergency, please call 911 immediately. . Non-Emergent Contact Non-Emergency issues call your: Primary Care Provider Call Non-Emergent contact if: you have a fever, your pain is not controlled, your pain is worsening, your pain is unusual for you, your pain is concerning you, you have any medication questions Seek immediate medical attention if your symptoms reoccur or worsen . . "Provider Documentation" section prepared by Inocencio Cortez. . <Electronically signed by Inocencio Cortez MD> Signed: 08/30/17 1034 Signed: The status of this report is Signed * If report status is Draft, the document has not been finalized by the responsible provider.
[2017-08-30 10:40] VITALS: BP 154/70; PULSE 68; TEMP 36.9; O2SAT 98
== END 2017-08-30 11:29 | disposition home or self-care (01) | DRG 690 ==
LOC: C.EDB 21:13 → C.4E 08-27 01:18 → ENRESERV 08-27 01:42
PROVIDERS: ADMIT Internal Medicine; ATTEND Internal Medicine
DX: N39.0 Urinary tract infection, site not specified (principal); N17.9 Acute kidney failure, unspecified; B96.1 Klebsiella pneumoniae [K. pneumoniae] as the cause of diseases classified elsewhere; I10 Essential (primary) hypertension; E11.9 Type 2 diabetes mellitus without complications; E78.5 Hyperlipidemia, unspecified; D64.9 Anemia, unspecified; Z87.718 Personal history of other specified (corrected) congenital malformations of genitourinary system

== ENCOUNTER 2023-08-06 08:40 | Inpatient (IN) ==
--- NOTE | 2023-08-06 09:12 | Emergency Department Note ---
Impression & Plan Angioedema, Cellulitis, Anemia ED Provider Note NAME: DONTE SUE AGE: 72 SEX: F : 1950 ARRIVES VIA: Walk-In INFORMANT: Patient, ED PROVIDER(S): Bright Miller DO CHIEF COMPLAINT: Swelling HPI: The patient is a 72-year-old female who presented to the emergency department with multiple complaints. The patient started noticing swelling on her upper lip over the last 24 hours. She started noticing swelling in the back of her throat and was unable to take her morning medications. She does take lisinopril. She was seen by her primary kidney doctor last week because of rash on her lower extremities. She was felt to have cellulitis and was told to follow-up with her primary care physician for further evaluation. The patient denies having any other new medications. She is not currently taking an antibiotic. She denies having any dysuria or frequency but a urine culture was also taken. The patient has a history of pyelonephritis. The patient denies having any back pain. She denies having any abdominal pain. ROS: See above HPI for pertinent positives & negatives. A total of 10 systems reviewed and were otherwise negative. PAST MEDICAL HISTORY: See Below PAST SURGICAL HISTORY: See Below FAMILY HISTORY: See Below SOCIAL HISTORY: See Below HOME MEDICATIONS: See Below ALLERGIES: See Below VITALS: See Below PHYSICAL EXAMINATION: GENERAL: Patient is awake alert in no acute distress patient is resting comfortably and showing no signs of anxiety EYES: The conjunctivae are clear. The right pupil is surgically altered. The left pupil is mid size and reactive to light. EARS, NOSE, MOUTH AND THROAT: The nose is without any evidence of any deformity. There was macroglossia as well as swelling to the upper lip. The posterior oropharynx was difficult to visualize. NECK: The neck is nontender and supple. There is no stridor. RESPIRATORY: Normal respiratory effort is noted there is no evidence of wheezing rhonchi or rales CARDIOVASCULAR: Regular rate and rhythm noted there no murmurs rubs or gallops normal S1 normal S2. GASTROINTESTINAL: The abdomen is soft. Abdomen is nontender. MUSCULOSKELETAL/EXTREMITIES: There is no evidence of gross deformity full range of motion is noted in the hips and shoulders. SKIN: Excoriated areas over both lower extremities. Pulses are symmetric in both feet. Pedal edema was noted bilaterally. NEUROLOGIC: Patient is awake alert and oriented x3 MEDICAL DECISION MAKING: The patient is a 72-year-old female who presented to the emergency department for an evaluation of rash on her legs but also angioedema. The patient does take an SALOME inhibitor. The patient was treated in the usual fashion for the angioedema. I discussed the patient's laboratory and radiographic studies with her. I will defer antibiotic treatment to the admitting team. She was significantly improved on reevaluation. She was encouraged to avoid her SALOME inhibitor from this point on. Triage Nursing notes reviewed. Prior medical records reviewed Vital Signs: reviewed and remarkable for elevated blood pressure. Differential diagnosis: Cellulitis, abscess, MRSA infection, DVT, necrotizing fasciitis, dermatitis, drug eruption, allergic reaction, as well as other pathologies. ER treatment provided: See below Diagnostics interpreted by me: ECG: EKG was obtained in the emergency department. My interpretation is sinus bradycardia 56 bpm. There is no ectopy. There is no acute ST segment abnormalities noted. This was compared to a tracing from May 10, 2023. No changes were noted. Cardiac Monitoring: An order was placed for continuous cardiac monitoring. The monitor shows a rate of 58 bpm with sinus bradycardia. Laboratory studies: As stated above and show below. Imaging studies: See below. Radiographic imaging was reviewed by myself Consultation(s): I discussed this case with Adriana who is on-call for the [facility] hospitalist group. Past Med/Surg History Medical History Pyelonephritis Hydronephrosis Complicated UTI (urinary tract infection) HTN (hypertension) Dyslipidemia DM type 2 (diabetes mellitus, type 2) Surgical History History of hysterectomy History of cataract surgery Family History (Updated 08/06/23 @ 11:51 by Adriana Wright PA-C) Mother Diabetes CHF (congestive heart failure) Father Hypertension COPD (chronic obstructive pulmonary disease) Social History (Updated 08/06/23 @ 11:53 by Adriana Wright PA-C) Smoking Status: Never smoker Hx Alcohol Use: No Hx Substance Use: No Preferred Language: Maori Feels Safe at Home: Yes Allergies Allergies Allergy/AdvReac Type Severity Reaction Status Date / Time bee venom protein (honey bee) Allergy Severe SWELLING Verified 05/10/23 13:31 AT SITE, HARD TO BREATHE Sulfa (Sulfonamide Allergy Severe From a b/p Verified 05/10/23 13:31 Antibiotics) med (told never take sulfa), RASH Cipro Allergy Unknown 0 Verified 08/27/17 01:28 ciprofloxacin [Cipro] Allergy Unknown 0 Verified 05/10/23 13:31 nitrofurantoin AdvReac Vomiting Verified 05/10/23 13:31 [From Macrobid] Home Meds Home Medications Medication Instructions Recorded Confirmed amlodipine 10 mg tablet 10 mg PO DAILY 05/10/23 08/06/23 aspirin 81 mg tablet,delayed 81 mg PO DAILY 05/10/23 08/06/23 release atenolol 25 mg tablet 25 mg PO QPM 05/10/23 08/06/23 atorvastatin 40 mg tablet 40 mg PO DAILY 05/10/23 08/06/23 brimonidine 0.2 %-timolol 0.5 % 1 drp ophthalmic (eye) BID 05/10/23 08/06/23 eye drops cholecalciferol (vitamin D3) 25 25 mcg PO DAILY 05/10/23 08/06/23 mcg (1,000 unit) tablet (Vitamin D3) dorzolamide 2 % eye drops 1 drp OPB BID 05/10/23 08/06/23 faricimab-svoa 6 mg/0.05 mL 6 mg intravitreal DIRECTED PRN 05/10/23 08/06/23 intravitreal solution (Vabysmo) .. folic acid 1 mg tablet 1 mg PO DAILY 05/10/23 08/06/23 glipizide 5 mg tablet 2.5 mg PO DAILY 05/10/23 08/06/23 lisinopril 5 mg tablet 5 mg PO DAILY 05/10/23 08/06/23 metformin 500 mg tablet,extended 500 mg PO DAILY 05/10/23 08/06/23 release 24 hr netarsudil 0.02 %-latanoprost 1 drp OPB HS 05/10/23 08/06/23 0.005 % eye drops (Rocklatan) Results & Data (ED) Vital Signs Vital Signs - 24 hr 08/06/23 08:44 08/06/23 08:55 08/06/23 08:58 Temperature 36.5 C Temperature Source Oral Pulse Rate 56 L 55 L 57 L Pulse Rate [Apical] Pulse Rate from SpO2 Sensor 56 L Respiratory Rate 18 20 Respiratory Effort / Characteristics Respiratory Depth Blood Pressure 155/72 H Blood Pressure [Right Arm] Blood Pressure Mean 99 Blood Pressure Mean [Right Arm] Blood Pressure Position Sitting Pulse Oximetry 98 97 Oxygen Delivery Method Room Air Sepsis Recent Fever Within 48 Hours No Sepsis New/Unexplained Change in Mental Status No Sepsis Action Taken by Nursing No Action Required 08/06/23 08:58 08/06/23 09:00 08/06/23 09:10 Temperature Temperature Source Pulse Rate 56 L 55 L Pulse Rate [Apical] 54 L Pulse Rate from SpO2 Sensor 57 L Respiratory Rate 20 18 17 Respiratory Effort / Characteristics Non-Labored Respiratory Depth Normal Blood Pressure Blood Pressure [Right Arm] 156/65 H Blood Pressure Mean Blood Pressure Mean [Right Arm] 95 Blood Pressure Position Pulse Oximetry 97 97 Oxygen Delivery Method Room Air Sepsis Recent Fever Within 48 Hours Sepsis New/Unexplained Change in Mental Status Sepsis Action Taken by Nursing 08/06/23 09:20 08/06/23 09:30 08/06/23 09:32 Temperature Temperature Source Pulse Rate 57 L 73 Pulse Rate [Apical] Pulse Rate from SpO2 Sensor 57 L 60 Respiratory Rate 16 20 Respiratory Effort / Characteristics Respiratory Depth Blood Pressure Blood Pressure [Right Arm] Blood Pressure Mean Blood Pressure Mean [Right Arm] Blood Pressure Position Pulse Oximetry 94 95 97 Oxygen Delivery Method Room Air Sepsis Recent Fever Within 48 Hours Sepsis New/Unexplained Change in Mental Status Sepsis Action Taken by Nursing 08/06/23 09:32 08/06/23 09:40 08/06/23 09:44 Temperature Temperature Source Pulse Rate 57 L Pulse Rate [Apical] 63 58 L Pulse Rate from SpO2 Sensor 57 L Respiratory Rate 20 19 20 Respiratory Effort / Characteristics Non-Labored Non-Labored Respiratory Depth Normal Normal Blood Pressure Blood Pressure [Right Arm] 156/65 H 132/65 Blood Pressure Mean Blood Pressure Mean [Right Arm] 95 87 Blood Pressure Position Pulse Oximetry 98 97 95 Oxygen Delivery Method Room Air Room Air Sepsis Recent Fever Within 48 Hours Sepsis New/Unexplained Change in Mental Status Sepsis Action Taken by Nursing 08/06/23 09:45 08/06/23 09:45 08/06/23 09:50 Temperature Temperature Source Pulse Rate 59 L 60 Pulse Rate [Apical] Pulse Rate from SpO2 Sensor 59 L 59 L Respiratory Rate 20 14 Respiratory Effort / Characteristics Respiratory Depth Blood Pressure 132/65 Blood Pressure [Right Arm] Blood Pressure Mean 88 Blood Pressure Mean [Right Arm] Blood Pressure Position Pulse Oximetry 94 94 Oxygen Delivery Method Sepsis Recent Fever Within 48 Hours Sepsis New/Unexplained Change in Mental Status Sepsis Action Taken by Nursing 08/06/23 10:00 08/06/23 10:10 08/06/23 10:20 Temperature Temperature Source Pulse Rate 58 L 57 L Pulse Rate [Apical] 62 Pulse Rate from SpO2 Sensor 58 L 57 L Respiratory Rate 17 21 20 Respiratory Effort / Characteristics Non-Labored Respiratory Depth Normal Blood Pressure Blood Pressure [Right Arm] 136/63 Blood Pressure Mean Blood Pressure Mean [Right Arm] 87 Blood Pressure Position Pulse Oximetry 95 96 95 Oxygen Delivery Method Room Air Sepsis Recent Fever Within 48 Hours Sepsis New/Unexplained Change in Mental Status Sepsis Action Taken by Nursing 08/06/23 10:20 08/06/23 10:20 08/06/23 10:30 Temperature Temperature Source Pulse Rate 56 L Pulse Rate [Apical] Pulse Rate from SpO2 Sensor 56 L Respiratory Rate 21 Respiratory Effort / Characteristics Respiratory Depth Blood Pressure 136/63 139/59 L Blood Pressure [Right Arm] Blood Pressure Mean 72 104 Blood Pressure Mean [Right Arm] Blood Pressure Position Pulse Oximetry 95 Oxygen Delivery Method Sepsis Recent Fever Within 48 Hours Sepsis New/Unexplained Change in Mental Status Sepsis Action Taken by Nursing 08/06/23 10:30 08/06/23 10:40 08/06/23 10:48 Temperature Temperature Source Pulse Rate 58 L 59 L Pulse Rate [Apical] 57 L Pulse Rate from SpO2 Sensor 58 L 58 L Respiratory Rate 10 L 20 20 Respiratory Effort / Characteristics Non-Labored Respiratory Depth Normal Blood Pressure Blood Pressure [Right Arm] 139/59 L Blood Pressure Mean Blood Pressure Mean [Right Arm] 85 Blood Pressure Position Pulse Oximetry 93 94 91 Oxygen Delivery Method Room Air Sepsis Recent Fever Within 48 Hours Sepsis New/Unexplained Change in Mental Status Sepsis Action Taken by Nursing 08/06/23 10:50 08/06/23 11:00 08/06/23 11:00 Temperature Temperature Source Pulse Rate 59 L 60 Pulse Rate [Apical] Pulse Rate from SpO2 Sensor 59 L 60 Respiratory Rate 13 25 H Respiratory Effort / Characteristics Respiratory Depth Blood Pressure 133/96 Blood Pressure [Right Arm] Blood Pressure Mean 106 Blood Pressure Mean [Right Arm] Blood Pressure Position Pulse Oximetry 92 93 Oxygen Delivery Method Sepsis Recent Fever Within 48 Hours Sepsis New/Unexplained Change in Mental Status Sepsis Action Taken by Nursing 08/06/23 11:10 08/06/23 11:21 08/06/23 11:30 Temperature Temperature Source Pulse Rate 58 L 62 Pulse Rate [Apical] Pulse Rate from SpO2 Sensor 58 L Respiratory Rate 14 17 Respiratory Effort / Characteristics Respiratory Depth Blood Pressure 169/67 H Blood Pressure [Right Arm] Blood Pressure Mean 129 Blood Pressure Mean [Right Arm] Blood Pressure Position Pulse Oximetry 92 Oxygen Delivery Method Sepsis Recent Fever Within 48 Hours Sepsis New/Unexplained Change in Mental Status Sepsis Action Taken by Nursing 08/06/23 11:30 Temperature Temperature Source Pulse Rate 58 L Pulse Rate [Apical] Pulse Rate from SpO2 Sensor 58 L Respiratory Rate 17 Respiratory Effort / Characteristics Respiratory Depth Blood Pressure Blood Pressure [Right Arm] Blood Pressure Mean Blood Pressure Mean [Right Arm] Blood Pressure Position Pulse Oximetry 94 Oxygen Delivery Method Sepsis Recent Fever Within 48 Hours Sepsis New/Unexplained Change in Mental Status Sepsis Action Taken by Long-Term Medications Current Medication List: was personally reviewed by me Laboratory Data Attestation: I reviewed the patient's lab results. 08/06/23 09:13 08/06/23 09:13 Lab Results 08/06/23 08/06/23 Range/Units 09:13 11:26 WBC 8.63 (4.8-10.8) K/ul RBC 3.44 L (4.20-5.40) M/uL Hgb 9.6 L (12.0-16.0) g/dl Hct 30.1 L (37.0-47.0) % MCV 87.5 (80.0-100.0) fL MCH 27.9 (25.0-34.0) pg MCHC 31.9 L (32.0-36.0) g/dL RDW Std Deviation 44.1 (36.4-46.3) fL RDW Coeff of Jessy 13.9 (11.5-14.5) % Plt Count 265 (130-400) K/uL MPV 9.5 (9.4-12.4) fL Immature Gran % (Auto) 0.3 % Neut % (Auto) 65.3 % Lymph % (Auto) 17.7 % Cotton % (Auto) 8.1 % Eos % (Auto) 8.3 % Baso % (Auto) 0.3 % Neut # (Auto) 5.62 (1.40-6.50) K/uL Lymph # (Auto) 1.53 (1.20-3.40) K/uL Cotton # (Auto) 0.70 H (0.11-0.59) K/uL Eos # (Auto) 0.72 H (0.00-0.50) K/uL Baso # (Auto) 0.03 (0.00-0.20) K/uL Immature Gran # (Auto) 0.03 (0.01-0.20) K/uL PT 11.7 (9.0-12.0) Seconds INR 1.1 (0.9-1.1) APTT 28 (21-31) Seconds PTT Ratio 1.0 VBG pH 7.35 L (7.36-7.41) VBG pCO2 36 L (38-50) mmHg VBG pO2 48 mmHg VBG HCO3 20 mmol/L VBG O2 Saturation 80.3 % VBG Base Excess -5.1 mEq/L Sodium 137 (136-145) mmol/L Potassium 4.6 (3.5-5.1) mmol/L Chloride 108 H (98-107) mmol/L Carbon Dioxide 20 L (21-32) mmol/L Anion Gap 9 (3-11) BUN 42 H (6-23) mg/dl Creatinine 1.38 H (0.6-1.2) mg/dl Est Cr Clr Drug Dosing 40.7 ml/min Est GFR ( Amer) 44.5 ml/min Est GFR (Non-Af Amer) 38.4 ml/min BUN/Creatinine Ratio 30.4 H (10-20) Glucose 136 H (70-99(Fasting)) mg/dl Lactate 0.9 (0.4-2.0) mmol/L Calcium 8.6 (8.6-10.3) mg/dl Magnesium 2.1 (1.7-2.4) mg/dl Total Bilirubin 0.4 (0.2-1.0) mg/dl Direct Bilirubin 0.1 (0-0.2) mg/dl AST 13 (13-39) U/L ALT 9 (7-52) U/L Alkaline Phosphatase 65 (34-104) U/L Troponin I High Sens 5.0 (0-14) pg/ml Total Protein 6.8 (6.0-8.3) gm/dl Albumin 3.9 (3.4-5.0) gm/dl Procalcitonin 0.04 (0-0.5) ng/ml Urine Color Yellow Urine Appearance Clear (Clear) Urine pH 5.5 (4.5-7.5) Ur Specific [place] 1.006 (1.000-1.030) Urine Protein Negative (Negative) Urine Glucose (UA) Negative (Negative) Urine Ketones Negative (Negative) Urine Blood Negative (Negative) Urine Nitrite Negative (Negative) Urine Bilirubin Negative (Negative) Urine Urobilinogen Negative (Negative) Ur Leukocyte Esterase Trace H (Negative) Urine WBC (Auto) 0-5 (0-5) /hpf Urine RBC (Auto) 0-2 (0-2) /hpf U Hyaline Cast (Auto) 0-2 (0-2) /lpf U Epithel Cells (Auto) 0-2 (0-2) /hpf Urine Bacteria (Auto) 4+ H (None Seen) Administered Medications Discontinued Medications Dexamethasone Sodium Phosphate (DexamethasonePf 10 Mg/Ml Vial) 10 mg IV NOW ONE Stop: 08/06/23 09:07 Last Admin: 08/06/23 09:37 Dose: 10 mg Documented By: SMOOTH Diphenhydramine HCl (Diphenhydramine 50 Mg/Ml Vial) 25 mg IV NOW STA Stop: 08/06/23 09:07 Last Admin: 08/06/23 09:37 Dose: 25 mg Documented By: SMOOTH Famotidine (Pepcid 20mg Iv Push) 20 mg in 5 mls @ 2.5 mls/min IV NOW STA Stop: 08/06/23 09:07 Last Admin: 08/06/23 09:37 Dose: 2.5 mls/min Documented By: SMOOTH Tranexamic Acid (Tranexamic Acid / 0.7% Nacl) 1,000 mg in 100 mls @ 600 mls/hr IV NOW STA Stop: 08/06/23 09:15 Last Infusion: 08/06/23 09:51 Dose: Infused Documented By: Admin: 08/06/23 09:37 Dose: 600 mls/hr Documented By: SMOOTH Imaging Data Attestation: I personally reviewed and interpreted this imaging study as follows: My Impression: 1 view chest x-ray was obtained in the emergency department. My interpretation is no free air or definite infiltrate, final report below. Radiologist's Impression: Chest X-Ray 08/06/23 09:06 XR chest 1V portable HISTORY: Sepsis COMPARISON: Chest 05/10/2023. FINDINGS: The lungs are clear. The cardiac silhouette is top normal in size. No pleural effusions. No pneumothorax. No acute fractures. IMPRESSION: No acute process. ACT 112: Negative or not required by law. Electronically signed by: Federico Medellin M.D. 08/06/2023 9:55 AM Discharge Plan Visit Data Chief Complaint: Rash Stated Complaint: CELLULITIS ON BOTH LEGS/PROBLEMS SWALLOWING ED Provider: Bright Miller Discharge Problem: Angioedema, Cellulitis, Anemia Patient Disposition: Being Evaluated by Hospitalist Forms Stand Alone Forms: My [facility] Prescriptions Prescriptions: No Action atorvastatin 40 mg tablet 40 mg PO DAILY atenolol 25 mg tablet 25 mg PO QPM amlodipine 10 mg tablet 10 mg PO DAILY folic acid 1 mg tablet 1 mg PO DAILY glipizide 5 mg tablet 2.5 mg PO DAILY dorzolamide 2 % drops 1 drp OPB BID Rocklatan 0.02-0.005 % drops 1 drp OPB HS Vabysmo 6 mg/0.05 mL Solution 6 mg INTRAVITREAL DIRECTED PRN (Reason: ..) aspirin [Aspir-Low] 81 mg Tablet,Delayed Release (Dr/Ec) 81 mg PO DAILY lisinopril 5 mg tablet 5 mg PO DAILY metformin 500 mg tablet extended release 24 hr 500 mg PO DAILY cholecalciferol (vitamin D3) [Vitamin D3] 25 mcg (1,000 unit) Tablet 25 mcg PO DAILY brimonidine-timolol 0.2-0.5 % Drops 1 drp OPHTHALMIC (EYE) BID Referrals Referrals: Ghislaine Hernandez DO [Primary Care Provider] - Discharge Problem: Angioedema Qualifiers: Encounter type: initial encounter Qualified Code(s): T78.3XXA - Angioneurotic edema, initial encounter Cellulitis Qualifiers: Site of cellulitis: extremity Site of cellulitis of extremity: lower extremity Laterality: unspecified laterality Qualified Code(s): L03.119 - Cellulitis of unspecified part of limb Anemia Qualifiers: Anemia type: unspecified type Qualified Code(s): D64.9 - Anemia, unspecified
[2023-08-06] MEDS: diphenhydrAMINE 50 MG/ML VIAL IV STA (09:37)
[2023-08-06] MEDS: TRANEXAMIC ACID / 0.7% NACL 1,000 MG/100 ML BAG IV STA (09:37)
[2023-08-06] MEDS: FAMOTIDINE 20MG IV PUSH 20 MG/5 ML SYR IV STA (09:37)
[2023-08-06] MEDS: dexAMETHasone**PF** 10 MG/ML VIAL IV ONE (09:37)
--- NOTE | 2023-08-06 09:56 | XRay Report ---
XR chest 1V portable HISTORY: Sepsis COMPARISON: Chest 05/10/2023. FINDINGS: The lungs are clear. The cardiac silhouette is top normal in size. No pleural effusions. No pneumothorax. No acute fractures. IMPRESSION: No acute process. ACT 112: Negative or not required by law. Electronically signed by: Federico Medellin M.D. 08/06/2023 9:55 AM
--- OUTSIDE RECORDS SUMMARY | 2023-08-06 09:59 | External Medical Summary | Summary of Care ---
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 Role Phone Ghislaine Hernandez DO Primary Care Provider [phone] Reason for Visit * Reason Comments Chronic Kidney Disease (CKD) * Evaluate & Treat - Unlimited Visits (Within 30 days (routine)) - Authorized Specialty Diagnoses / Procedures Referred By Tristian t Referred To Contact Nephrology Diagnoses HTN, goal below 130/80 Chronic kidney disease, stage 3b (HCC) Ghislaine Hernandez DO [address] [facility] [place] [address] Referral ID Status Reason Start Date Expiration Date Visits Requested Visits Authorized [id number] Authorized Specialty Services Required 07/16/[phone] Encounter Details Date Type Department Care Team (Late st Contact Info) Description 08/02/2023 9:30 AM EDT Office Visit Nephrology, Luis Carney [address] [place] [address] ZemaJennifer palomino PA-C [address] [facility] [place] [address] Stage 3b chronic kidney disease (HCC)*; HTN, goal below 130/80; White coat syndrome with diagnosis of hypertension; Type 2 diabetes mellitus with hemoglobin A1c goal of less than 7.0% (HCC); Flank pain Allergies Active Allergy Reactions Criticality Noted Date Comments Bee Venom Edema airway,Edema Other High 01/15/2014 Eye swelled shut Ciprofloxacin Other (Please comment) Medium 11/24/2016 Trouble breathing, nausea Furosemide Rash 08/02/2023 Nitrofurantoin 11/08/2018 vomiting Sulfa Antibiotics Hives,Other (Please comment) 01/15/2014 Boil/Acne like sores on abdomen documented as of this encounter (statuses as of 08/03/2023) Medications Medication Sig Dispensed Refills Start Date End Date Status Aspirin 81 MG Tablet Take 1 Tablet by mouth in the morning. 90 Tab 0 09/04/2017 Active cholecalciferol, VIT D3, (VITAMIN D3) 1000 UNITS Tablet Take 1 Tablet by mouth in the morning. 0 04/17/2019 Active OneTouch Ultra Blue In Vitro Strip (Glucose Blood)Indications:Ty pe 2 diabetes mellitus with hemoglobin A1c goal of less than 7.0% (HCC) Use to test blood sugar once daily 100 Strip 11 06/11/2020 Active Zoster Vac Recomb Adjuvanted 50 MCG/0.5ML Intramuscular Suspension Reconstituted (Shingrix)Indication s:Need for vaccination for zoster Inject 0.5 mL into a large muscle now and repeat dose in 60 to 180 days 1 Each 1 06/28/2022 Active Atenolol 25 MG Oral Tablet (Tenormin)Indication s:HTN, goal below 130/80 Take 1 tablet by mouth once daily 90 Tablet 3 02/23/2023 Active amLODIPine Besylate 10 MG Oral Tablet (Norvasc)Indications :HTN, goal below 130/80 Take 1 tablet by mouth once daily 90 Tablet 3 02/23/2023 Active metFORMIN HCl ER 500 MG Oral Tablet Extended Release 24 Hour (Glucophage XR)Indications:Type 2 diabetes mellitus with hemoglobin A1c goal of less than 7.0% (HCC) Take 1 tablet by mouth once daily 90 Tablet 3 02/23/2023 Active glipiZIDE 5 MG Oral Tablet (Glucotrol) Take 1/2 (one-half) tablet by mouth once daily 45 Tablet 1 02/26/2023 Active Folic Acid 1 MG Oral TabletIndications:Fo lic acid deficiency Take 1 Tablet by mouth in the morning. 30 Tablet 11 04/03/2023 Active Atorvastatin Calcium 40 MG Oral Tablet (Lipitor)Indications :Dyslipidemia, goal LDL below 100 Take 1 tablet by mouth once daily 90 Tablet 1 04/04/2023 Active Dorzolamide HCl 2 % Ophthalmic Solution (Trusopt Ocumeter Plus) Instill 1 Drop into both eyes in the morning and 1 Drop in the evening. 30 mL 3 04/19/2023 Active Rocklatan 0.02-0.005 % Ophthalmic Solution (Netarsudil-Latanopr ost) Instill 1 Drop into both eyes every evening. 7.5 mL 3 04/19/2023 Active Pantoprazole Sodium 40 MG Oral Tablet Delayed Release (Protonix)Indication s:Gastroesophageal reflux disease with esophagitis, unspecified whether hemorrhage Take 1 Tablet by mouth in the morning. 30 Tablet 5 06/05/2023 Active Additional Information Patient not taking.Reported on 08/02/2023 Brimonidine Tartrate-Timolol 0.2-0.5 % Ophthalmic Solution (Combigan) Instill 1 Drop into both eyes in the morning and 1 Drop before bedtime. 30 mL 3 06/29/2023 Active Famotidine 20 MG Oral Tablet (Pepcid)Indications: Gastroesophageal reflux disease with esophagitis, unspecified whether hemorrhage Take 1 Tablet by mouth in the morning and 1 Tablet before bedtime. 180 Tablet 3 07/04/2023 Active Lisinopril 5 MG Oral Tablet (Prinivil)Indication s:HTN, goal below 130/80 Take 1 tablet by mouth once daily 90 Tablet 3 07/13/2023 Active Hospital, Clinic, or Other Facility Administered Medication Ordered Dose Route Frequency Start Date End Date Status Faricimab-svoa (Vabysmo) intravitreal inj 6 mgIndications:Neovascu lar glaucoma of right eye, indeterminate stage,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, unspecified proliferative retinopathy type (HCC) 6 mg IZ PRN 03/28/2023 03/27/2024 Ac tive ROPivacaine (Naropin) inj 1.5 mgIndications:Neovascu lar glaucoma of right eye, indeterminate stage,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, unspecified proliferative retinopathy type (HCC) 1.5 mg PERINEURAL PRN 03/28/2023 03/27/2024 Ac tive documented as of this encounter (statuses as of 08/03/2023) Active Problems Problem Noted Date Diagnosed Date Benign hypertension with stage 3b chronic kidney disease 12/20/2020 Overview: Per CKD protocol Chronic kidney disease, stage 3b 12/20/2020 Overview: Per CKD protocol History of pyelonephritis 09/04/2017 Congenital ureterocele, orthotopic 07/24/2016 Type 2 diabetes mellitus 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 0 to 44.9 in adult 04/17/2022 08/01/2022 Overview: Per Obesity protocol Chronic kidney disease, stage 3a 09/21/2020 12/23/2020 Overview: Per CKD protocol Benign hypertension with sta ge 3a chronic kidney disease 2020 12/23/2020 Overview: Per CKD protocol Benign hypertension with chr onic kidney disease, stage III 03/07/2018 08/19/2020 Overview: Per CKD protocol Kidney disease, chronic, sta ge III (GFR 30-59 ml/min) 09/18/2017 04/26/2018 Overview: Per CKD protocol #1 Diabetic macular edema 05/13/201503/07 BENIGN HYPERTENSION 04/25/2000 09/23/19 15 documented as of this encounter (statuses as of 08/03/2023) Immunizations Name Administration Dates Next Due COVID-19 mRNA, LNP-s, No Pre serve, 2-Dose Series (Pfizer) 09/03/2020,08/13/2020 Pneumococcal Conjugate Vacc, 13 Valent (Prevnar) 08/22/2016 Pneumococcal Polysaccharide PPV23 (Pneumovax) 11/26/2019,08/06/2014 Season Influenza, Quad, PF, Adjuvanted, 65+ Yrs, IM (FLUAD) 02/11/2020 Seasonal Influenza, PF, 6 M & above, IM , (FluLaval or Fluzone) 02/06/2018,03/15/2017 Seasonal Influenza, Quadriva lent Hd (Fluzone Hd) 01/03/2023,12/21/2021,12/14/2020 Seasonal Influenza, Quadriva lent, No Preserve, IM 12/28/2015,06/24/2015 Seasonal Influenza, Split, I IV3, With Preserve, Inj 07/29/2014 Seasonal Influenza, Trivalen t, Adjuvanted, 65+ yrs 01/30/2019 TDAP (age 10 and older)(Boostrix) 07/17/2014 Varicella Zoster Vaccine (Adult) 12/28/2015 Zoster Vaccine Recombinant (Shingrix) 12/01/2018 documented as of this encounter Social History Tobacco Use Types Packs/Day Years Used Date Smoking Tobacco: Never Smokeless Tobacco: Never Tobacco Cessation:Counseling Given: Not Answered Alcohol Use Standard Drinks/Week Comments No 0 (1 standard drink = 0.6 oz pur e alcohol) PHQ-2 Answer Date Recorded PHQ Adult Total Score 0 06/28/2022 Hunger Vital Sign Answer Date Recorded Within the past 12 months, y ou worried that your food would run out before you got the money to buy more. Never true 11/17/19 23 Within the past 12 months, t he food you bought just didn't last and you didn't have money to get more. Never true 11/16/2022 Sex and Gender Information Value Date Recorded Sex Assigned at Female 06/23/2019 10:06 AM EDT Gender Identity Female 06/23/2019 10:06 AM EDT Sexual Orientation Straight 06/23/2019 10 :06 AM EDT Job Start Date Occupation Industry Not on file Not on file Not on file documented as of this encounter Last Filed Vital Signs Vital Sign Reading Time Taken Comments Blood Pressure 153/56 08/02/2023 9:36 AM EDT Pulse 49 08/02/2023 9:36 AM EDT Temperature 36.1 C (96.9 F) 08/02/2023 9:33 AM ED T Respiratory Rate 18 08/02/2023 9:33 AM EDT Oxygen Saturation 94% 08/02/2023 9:33 AM EDT Inhaled Oxygen Concentration - - Weight 85.3 kg (188 lb) 08/02/2023 9:33 AM EDT Height - - Body Mass Index 35.52 03/09/2023 4:19 PM EST documented in this encounter Progress Notes * Jennifer Augustine PA-C - 08/02/2023 9:45 AM EDT NEPHROLOGY CLINIC NOTE Nephrology, [facility] [address] [facility] [place] [address] Patient Name: Stephanie Mccauley Patient Active Problem List Diagnosis Code Type 2 diabetes mellitus with hemoglobin A1c goal of less than 7.0% ([facility]) E11.9 Dyslipidemia, goal LDL below 100 E78.5 HTN, goal below 130/80 I10 Type 2 diabetes mellitus with moderate nonproliferative diabetic retinopathy with macular edema, bilateral ([facility]) E11.3313 Congenital ureterocele, orthotopic Q62.31 History of pyelonephritis Z87.448 Benign hypertension with stage 3b chronic kidney disease (HCC) I12.9, N18.32 Chronic kidney disease, stage 3b (HCC) N18.32 BACKGROUND: 72 year old female presents for f/u of non protenuric CKD 3 from unknown etiology in the setting of multiple risk factors. Medical history includes congenital ureterocele and history of pyelonephritis, diabetes since 2013 with bilateral retinopathy on metformin, hypertension, hyperlipidemia. May have had DM earlier than 2013 but had no healthcare access. Note no cardiac disease or stroke hx. Her baseline creatinine is quite variable but runs generally in the 1.2-1.5 range since July 2016. She has frequent urinary tract infections and has in the past followed with Dr. Carranza regularly. Gets L flank pain and has standing prn urine studies; does not often have LUTS. On Vit C and drinking lots of water -- per Dr Carranza; pt thinks these made the difference. Hospitalized 08/2017 and also07/2016 [facility] for pyelonephritis, in 2017 needed ureteral stent. Pt states has been told she has white coat syndrome >> has upper arm BP cuff un validated. Drinks at least : 80 oz water daily. Home blood pressure checks: yes-upper arm cuff non validated NSAID use: no Herbals/supplements: Vit D, B12, baby aspirin, Vit C History of stones: no Family history of CKD or ESRD: none; 4th generation diabetic Reports COVID infection along with her parents who she helped care for in 2020. Apr 2020 lost both Parents, whom she helped to care for, 1 wk apart due to COVID infection. did have a fall rigth down on both knees on pavement in [place] August 2022 > had edema after this BLE. Stopped driving d/t worse vision > follows w/ 2 ophthalmologists spring 2022 Today 08/02/23 Denies any recent hospitalizations, procedures or infections. Reports ER visit May 2023 due to abdominal pain - dx acid reflux and started with pepcid and protonix To have a scope completed in August - Reports some dietary changes advised which was not favorable to diabetes Continues with ophthalmology care- reports ongoing shots to the eye. Reports some changes to eye pressure that is being monitoring closely. Surgery on hold now prev laser treatment w/ Dr Valeriy Cristina eye Reports pain to the left side of the back -she noted it with lifting a box in the closet - concern with UTI Also noted some pain to the right legs. She reports some itching to the area. She reports currentlyputting topical antibiotics cream to the area No longer with lasix due to suspected rash per patient She was then started on torsemide 20mg but it was later discontinued Reports has not followed with MTM clinic and had to cancel due to other appts REVIEW OF SYSTEMS General: No fatigue, No change in weight Head: No significant headache Eyes: No recent significant change in vision. Last eye exam:within months Respiratory: No cough,No wheezing, No shortness of breath Cardiovascular:No chest pain, No palpitations, and No syncope Gastrointestinal: No nausea, vomiting, diarrhea No blood in stools No abdominal pain Urinary: No dysuira, No hematuria. No flank pain Musculoskeletal: No muscle/joint pains , No edema Skin: + itching of the lower ext All other systems were reviewed and were negative. Current Outpatient Medications Medication Sig Dispense Refill Aspirin 81 MG Tablet Take 1 Tablet by mouth in the morning. 90 Tab 0 cholecalciferol, VIT D3, (VITAMIN D3) 1000 UNITS Tablet Take 1 Tablet by mouth in the morning. Atenolol 25 MG Oral Tablet (Tenormin) Take 1 tablet by mouth once daily 90 Tablet 3 amLODIPine Besylate 10 MG Oral Tablet (Norvasc) Take 1 tablet by mouth once daily 90 Tablet 3 metFORMIN HCl ER 500 MG Oral Tablet Extended Release 24 Hour (Glucophage XR) Take 1 tablet by mouthonce daily 90 Tablet 3 glipiZIDE 5 MG Oral Tablet (Glucotrol) Take 1/2 (one-half) tablet by mouth once daily 45 Tablet 1 Folic Acid 1 MG Oral Tablet Take 1 Tablet by mouth in the morning. 30 Tablet 11 Atorvastatin Calcium 40 MG Oral Tablet (Lipitor) Take 1 tablet by mouth once daily 90 Tablet 1 Dorzolamide HCl 2 % Ophthalmic Solution (Trusopt Ocumeter Plus) Instill 1 Drop into both eyes in the morning and 1 Drop in the evening. 30 mL 3 Rocklatan 0.02-0.005 % Ophthalmic Solution (Netarsudil-Latanoprost) Instill 1 Drop into both eyes every evening. 7.5 mL 3 Brimonidine Tartrate-Timolol 0.2-0.5 % Ophthalmic Solution (Combigan) Instill 1 Drop into both eyesin the morning and 1 Drop before bedtime. 30 mL 3 Famotidine 20 MG Oral Tablet (Pepcid) Take 1 Tablet by mouth in the morning and 1 Tablet before bedtime. 180 Tablet 3 Lisinopril 5 MG Oral Tablet (Prinivil) Take 1 tablet by mouth once daily 90 Tablet 3 OneTouch Ultra Blue In Vitro Strip (Glucose Blood) Use to test blood sugar once daily 100 Strip 11 Zoster Vac Recomb Adjuvanted 50 MCG/0.5ML Intramuscular Suspension Reconstituted (Shingrix) Inject 0.5 mL into a large muscle now and repeat dose in 60 to 180 days 1 Each 1 Pantoprazole Sodium 40 MG Oral Tablet Delayed Release (Protonix) Take 1 Tablet by mouth in the morning. (Patient not taking: Reported on 08/02/2023) 30 Tablet 5 Current Facility-Administered Medications Medication Dose Route Frequency Provider Last Rate Last Admin Faricimab-svoa (Vabysmo) intravitreal inj 6 mg 6 mg Intravitreal PRN Nitish Crooks DO 6 mgat 03/28/23 1557 ROPivacaine (Naropin) inj 1.5 mg 1.5 mg Perineural PRN Nitish Crooks DO 1.5 mg at 556 PHYSICAL EXAMINATION Last 4 BP Readings: BP Readings from Last 4 Encounters: 08/02/23 153/56 07/04/23 114/60 06/15/23 146/51 06/05/23 120/70 Last 3 Weights: Wt Readings from Last 3 Encounters: 08/02/23 85.3 kg (188 lb) 07/04/23 83.5 kg (184 lb) 06/05/23 85.4 kg (188 lb 4 oz) BP 153/56 (BP Site: Right Arm, BP Position: Sitting, BP Cuff Size: Large) | Pulse 49 | Temp 36.1 C (96.9 F) | Resp 18 | Wt 85.3 kg (188 lb) | SpO2 94% | BMI 35.52 kg/m | BSA 1.92 m Wt Readings from Last 1 Encounters: 08/02/23 85.3 kg (188 lb) General appearance: alert, no apparent distress. Ambulatory without assistance HEAD: Normocephalic, No masses, lesions, tenderness Respiratory: clear to auscultation, no wheezes, and no crackles Heart: regular rate and regular rhythm Abdomen: abdomen soft, non-tender, and no CVA tenderness EXTREMITIES: Non pitting edema, Mild erythema noted to the right lower ext no weeping or warmth Skin: skin turgor are normal + Mild erythema noted to the lower bilateral ext NEURO: alert & oriented x 3 with fluent speech, no focal motor/sensory deficits No tremor Patient is a reliable historian of events LABS: Latest Reference Range & Units 07/11/22 15:38 01/15/23 15:15 03/20/23 12:28 03/30/23 11:46 04/06/23 10:30 07/04/23 15:02 Sodium 135 - 146 mmol/L 139 140 141 142 137 138 Potassium 3.5 - 5.1 mmol/L 4.4 4.4 4.5 4.7 5.4 (H) 4.4 Chloride 98 - 107 mmol/L 103 103 104 104 104 108 (H) CO2 22 - 32 mmol/L 23 22 27 28 24 19 (L) BUN 6 - 20 mg/dL 39 (H) 48 (H) 28 (H) 45 (H) 36 (H) 58 (H) Creatinine 0.5 - 1.0 mg/dL 1.3 (H) 1.4 (H) 1.1 (H) 1.6 (H) 1.3 (H) 1.8 (H) Estimated Glomerular Filtration Rate >=60 mL/min 46 (L) 42 (L) 52 (L) 35 (L) 45 (L) 30 (L) Anion Gap 7 - 15 mmol/L 13 15 10 10 9 11 Glucose 70 - 120 mg/dL 81 101 135 (H) 140 (H) 193 (H) 123 (H) Calcium 8.4 - 10.2 mg/dL 9.7 9.9 9.5 9.3 9.0 9.3 Magnesium 1.5 - 2.6 mg/dL 2.3 Phosphorus 2.5 - 4.8 mg/dL 3.8 4.3 (H): Data is abnormally high (L): Data is abnormally low Latest Reference Range & Units 03/13/19 11:16 09/20/19 09:52 01/10/22 14:04 Albumin / Creatinine Ratio, Urine <30 mg/g creat 49 (H) 30 (H) Protein/ Creatinine Ratio, Urine <150 mg/g 182 (H) (H): Data is abnormally high Latest Reference Range & Units 06/14/21 13:59 01/15/23 15:15 Magnesium 1.5 - 2.6 mg/dL 2.4 2.3 ASSESSMENT/PLAN: The patient's most recent labs (from 1 months ago) were reviewed and the assessment/plan is as follows: CKD 3B with reduced function noted on labs in June 2023. Volume status appears stable even withoutdiuretics, chemistries historically ok. Stage 3b chronic kidney disease (HCC) (Primary) - BASIC METABOLIC PANEL; Future; Expected date: 08/02/2023 - URINALYSIS WITH MICROSCOPIC EXAM; Future; Expected date: 08/02/2023 - ALBUMIN / CREATININE RATIO, URINE; Future; Expected date: 08/02/2023 - URINALYSIS, REFLEX TO CULTURE (NOT FOR NEUTROPENIC PATIENTS); Future; Expected date: 08/02/2023 - CULTURE, URINE, QUANTITATIVE HTN, goal below 130/80 White coat syndrome with diagnosis of hypertension BP uncontrolled today and w/ situational component which makes home log more important; BP cuff from home borderline valid Currently with amlodipine,10mg atenolol 25 mg, lisinopril 5 mg current doses No longer with lasix reports rash with use started torsemide with no issues by d/c by PCP ? -consider thiazide versus loop increase; favor former Patient to reschedule appt with MTM Type 2 diabetes mellitus with hemoglobin A1c goal of less than 7.0% () Worsening A1c up to 7.3 with June labs- discussed dietary restrictions Flank pain Labs placed for further evaluation of possible UTI infection - CULTURE, URINE, QUANTITATIVE Las placed today for re-ealuation due dec GFR lvls with labs in June No changes to meds but will look to restart toresemide if needed Stressed improtance of MTM clinic Bp log for rreview Avoid medicines like aleve, advil, ibuprofen, aspirin more than 81 mg daily and other NSAIDS which are not good for kidney patients. Take only tylenol (acetaminophen) up to 2000 mg daily as needed for pain or as directed by your primary care provider. Reviewed previous status of kidney function and goals of care. All questions were answered. Check-out note: 3-4 with Dejah (add to waitlist if needed) Appt with MTM clinic in [facility] Jennifer Augustine PA-C Nephrology, [address] [place] [address] documented in this encounter Nursing Notes * Jailyn Campoverde, RN - 08/02/2023 9:36 AM EDT Follow up visit today. Was seen in Er in May for GERD. No other illness. Does monitor blood pressures at home. documented in this encounter Plan of Treatment Upcoming Encounters Date Type Department Care Team (Latest Contact Info) Description 11:15 AM EDT Hospital Encounter ENDO [facility], Endoscopy Room [facility] [address] [place] [phone] Brent Alcantara MD [address] [place] [address] 4 11:15 AM EDT - 4 11:45 AM EDT Surgery ENDO [facility], Endoscopy Room [facility] [address] [place] [phone] Brent Alcantara MD [address] [place] [address] ESOPHAGOGASTRODUODENOSCOPY (EGD), FLEXIBLE, TRANSORAL, DIAGNOSTIC 4 1:15 PM EDT Office Visit Ophthalmology, [facility] [address] [place] [address] Nitish Crooks, DO [address] [place] [address] 4 9:00 AM EDT Imaging Radiology [facility] [address] [place] [address] 4 1:00 PM EDT Office Visit [facility] [address] [place] [address] Ghislaine Hernandez, DO [address] [place] [address] 5 1:00 PM EDT Office Visit [facility] [address] [place] [address] Ghislaine Hernandez, DO [address] [place] [address] Pending Results Name Type Priority Associated Diagnoses Date /Time CULTURE, URINE, QUANTITATIVE Lab Routine Stage 3b chronic kidney disease (HCC) Flank pain 08/02/2023 4:27 PM EDT Scheduled Orders Name Type Priority Associated Diagnoses Orde r Schedule URINALYSIS, REFLEX TO CULTURE (NOT FOR NEUTROPENIC PATIENTS) Lab Routine Stage 3b chronic kidney disease (HCC) Expected: 08/02/2023, Expires: 08/01/2024 Scheduled Procedures Name Priority Associated Diagnoses Date/Ti me ESOPHAGOGASTRODUODENOSCOPY ( EGD), FLEXIBLE, TRANSORAL, DIAGNOSTIC GERD (gastroesophageal reflux disease) 09/04/2023 11:15 AM EDT COLONOSCOPY FLEXIBLE PROXIMA L DIAGNOSTIC Recall Encounter for screening colonoscopy Health Maintenance Due Date Last Done Comments Cologuard 08/16/1996 Sigmoidoscopy 08/16/1996 Zoster Vaccines (3 of 3) 01/26/2019 12/01/2018, 12/09 COVID-19 Vaccine ( season) 2022 09/03/2020, 08/13/2020 Depression Screening 06/29/2023 06/28/2022 Mammogram 09/28/2023 09/27/2022, 09/08, 09/26/2021, Additional history exists Diabetic Eye Exam 11/14/2023 11/13/2022, , 11/13/2022, Additional history exists HbA1c 01/04/2024 07/04/2023, 10/0 12/2022, 07/11/2022, Additional history exists GFR 02/01/2024 08/02/2023, 06/08, 04/06/2023, Additional history exists B-12 03/30/2024 03/30/2023, 10/0 12/2022, 04/28/2022, Additional history exists CKD HGB USE SMARTSET 65240 04/06/202404/06, 04/06/2023, 03/30/2023, Additional history exists Fecal Occult Blood Test 04/11/2024 04/11/2023, 10/05 DXA Scan 04/30/2024 04/30/2017 CKD PHOS USE SMARTSET 30247 07/03/20242 10/2023, 07/11/2022, 06/14/2021, Additional history exists Diabetic Foot Exam 07/03/2024 07/04/2023, 0 06/28/2022, 06/14/2021, Additional history exists DTaP,Tdap,and Td Vaccines (2 - Td or Tdap) 07/17/2024 07/17/2014 Albumin/Creatinine Ratio 08/01/2024 024, 07/06/2023, 07/11/2022, Additional history exists Colonoscopy 12/07/2027 12/06/2017, 11/09, 11/16/2014, Additional history exists Colorectal Cancer Screening 12/07/2027 Lipid Panel 03/30/2028 03/30/2023, 12/08, 06/14/2021, Additional history exists Pneumococcal Vaccine: 65+ Years Completed 11/26/2019, 08/22/2016, 08/06/2014 Influenza Vaccine (FLU shot) Completed , 12/21/2021, 12/14/2020, Additional history exists GARDASIL-HPV IMMUNIZATION SERIES Aged Out No longer eligible based on patient's age to complete this topic Hepatitis B Aged Out No longer eligi ble based on patient's age to complete this topic MENINGOCOCCAL (MENACTRA/MENVEO) Aged Out No longer eligible based on patient's age to complete this topic documented as of this encounter Medical Devices Implanted Type Area Assembler Carbon Brushes Device Identifier Shelf Expiration Date Model / Serial / Lot Shunt Tube Glaucoma Ahmed 7 - [id number] - [id number] Implanted:Qty: 1 on 11/17/2022 by Carolina Ramirez MD at [facility] Right: Eye [employer] [id number] 09/17/2024 Augustus / [id number] / [id number] Graft [place] Cornea Split - [id number] Implanted:Qty: 1 on 11/17/2022 by Carolina Ramirez MD at OR [facility] Right: Eye [employer] 09/11/2024 O-HH1 / [id number] / [id number] documented as of this encounter Results * ALBUMIN / CREATININE RATIO, URINE (08/02/2023 10:49 AM EDT) Albumin, Random Urine <1.20 mg/dL 08/02/2023 5:59 PM EDT [facility] Creatinine, Random Urine 57 mg/dL 08/02/2023 5:59 PM EDT [facility] Albumin / Creatinine Ratio, Urine <21 <30 mg/g Creat 08/02/2023 5:59 PM EDT [facility] Urine Urine specimen / Unknown Non-blood Collection / Unknown 08/02/2023 10:49 AM EDT 08/02/2023 10:49 AM EDT Narrative [facility] - 08/02/2023 5:59 PM EDT Normal: <30 mg/g creatinine High: 30-300 mg/g creatinine Very High: >300 mg/g creatinine Nephrotic: >2200 mg/g creatinine Jennifer Augustine PA-C LAB URINE ORD ERABLES [facility] [address] [place] [address] * (ABNORMAL) URINALYSIS WITH MICROSCOPIC EXAM (08/02/2023 10:49 AM EDT) Color, Urine Yellow Colorless, Light Yellow, Yellow, Dark Yellow 08/02/2023 11:09 AM EDT [address] Clarity, Urine Clear Clear 08/02/2023 11:09 AM EDT [place] [address] Glucose, Urine Negative Negative mg/dL 08/02/2023 11:09 AM EDT [address] Bilirubin, Urine Negative Negative 08/02/2023 11:09 AM EDT [address] Ketone, Urine Negative Negative mg/dL 08/02/2023 11:09 AM EDT [facility] 5[address] Specific [place], Urine 1.010 1.003 - 1.030 08/02/2023 11:09 AM EDT [facility] 56-02 Blood, Urine Negative Negative 08/02/2023 11:09 AM EDT [facility] 56 pH, Urine 5.5 5.0 - 7.5 Units 08/02/2023 11:09 AM EDT [facility] 56-02 Protein, Urine Negative Negative mg/dL 08/02/2023 11:09 AM EDT [place] [address] Urobilinogen, Urine 0.2 0.2, 1.0 mg/dL 08/02/2023 11:09 AM EDT [place] [address] Nitrite, Urine Positive(A) Negative 08/02/2023 11:09 AM EDT [place] [address] Esterase, Urine Small(A) Negative 08/02/2023 11:09 AM EDT [place] [address] RBC, Urine 0-2 0 - 2 /HPF 08/02/2023 11:09 AM EDT [place] [address] WBC, Urine 50+(A) 0 - 2 /HPF 08/02/2023 11:09 AM EDT [place] [address] Bacteria, Urine >200(A) 0 - 25 /HPF 08/02/2023 11:09 AM EDT [place] [address] Urine Urine specimen / Unknown Non-blood Collection / Unknown 08/02/2023 10:49 AM EDT 08/02/2023 10:49 AM EDT Jennifer Augustine PA-C LAB URINE ORD ERABLES [place] [address] [place] [address] * (ABNORMAL) BASIC METABOLIC PANEL (08/02/2023 10:44 AM EDT) BUN 42(H) 6 - 20 mg/dL 08/02/2023 12:38 PM EDT [place] [address] Creatinine 1.5(H) 0.5 - 1.0 mg/dL 08/02/2023 12:38 PM EDT [place] [address] Estimated Glomerular Filtration Rate 36(L) >=60 mL/min 08/02/2023 12:38 PM T [place] [address] Comment:eGFR is calculated b ased on the CKD-EPI 2020 equation Sodium 141 135 - 146 mmol/L 08/02/2023 12:38 PM EDT [place] [address] Potassium 5.2(H) 3.5 - 5.1 mmol/L 08/02/2023 12:38 PM EDT [place] [address] Chloride 105 98 - 107 mmol/L 08/02/2023 12:38 PM EDT [address] CO2 24 22 - 32 mmol/L 08/02/2023 12:38 PM EDT [address] Anion Gap 12 7 - 15 mmol/L 08/02/2023 12:38 PM EDT [address] Glucose 119 70 - 120 mg/dL 08/02/2023 12:38 PM EDT [address] Calcium 9.9 8.4 - 10.2 mg/dL 08/02/2023 12:38 PM EDT [address] Blood Venous blood specimen / Unknown Venipuncture / Unknown 08/02/2023 10:44 AM EDT 08/02/2023 10:44 AM EDT Jennifer Augustine PA-C LAB BLOOD ORD ERABLES [address] [place] [address] documented in this encounter Visit Diagnoses Diagnosis Stage 3b chronic kidney disease (HCC)- Primary HTN, goal below 130/80 Unspecified essential hypertension White coat syndrome with diagnosis of hypertension Type 2 diabetes mellitus with hemoglobin A1c goal of less than 7.0% (HCC) Flank pain Abdominal pain, unspecified site GERD (gastroesophageal reflux disease) Esophageal reflux documented in this encounter Advance Directives Latest Code Status on File Code Status Date Activated Date Inactivated Comments Full Code 07/28/2014 3:21 PM 07/31/2014 4:03 PM This order reflects the patients wishes and were consensually agreed upon. Care Teams Pug Machine Operator Relationship Specialty Start Date End Date Ghislaine Hernandez DO [address] [place] [address] PCP - General Family Medicine 07/09/14 documented as of this encounter"
--- OUTSIDE RECORDS SUMMARY | 2023-08-06 09:59 | External Medical Summary ---
Author Name Unknown Address Unknown Organization K01:[facility] - [address] [facility] [facility] [address] Laboratory Report Ordering Provider Test Date Status JETT CANNON 08/02/2023 16:27:10 Final <10,000 colonies/ml mixed no rmal bessy Observation Date Value Abnormality Reference (Units ) Status Bacteria identified in Specimen by Culture 08/02/2023 16:27:10 [id number]^CITROBA CTER FREUNDII Abnormal Final >100,000 colonies/mL Citroba cter freundii
This bacterial species is known to produce an inducible AmpC beta lactamase. Except for the treatment of simple cystitis, recommend avoiding penicillins or cephalosporins other than cefepime. Performing Location [facility] - [address] [facility]. [facility] [address] Ordering Provider Test Date Status JETT CANNON 08/02/2023 16:27:10 Final Observation Date Value Abnormality Reference (Units ) Status Cefepime susceptibility 08/02/2023 16:27:10 <=1 Susceptible Final cefOXitin [Susceptibility] 08/02/2023 16:27:10 32 Resistant Final Ceftriaxone suceptibility 08/02/2023 16:27:10 <=1 Susceptible Final Avoid unless for the treatme nt of simple cystitis. Ciprofloxacin 08/02/2023 16:27:10 <=0.25 Susceptible Final Due to serious side effects, the FDA has advised against using Ciprofloxacin to treat uncomplicated UTIs and respiratory tract infections unless there are no alternative treatment options. Gentamicin susceptibility 08/02/2023 16:27:10 <=1 Susc eptible Final Nitrofurantoin susceptibility 08/02/2023 16:27:10 <=16 Susceptible Final Piperacillin + Tazobactamsusceptibility 08/02/2023 16:27:10 <=4 Susceptible Final Avoid unless for the treatme nt of simple cystitis. TMP-SMZ susceptibility 08/02/2023 16:27:10 <=20 Suscept ible Final Test: Culture, Urine, Quanti tative
Specimen Source: Urine, Clean Catch
Specimen Type: Urine
Specimen Date: 08/02/2023 4:27 PM
Result Date: 08/04/2023 9:59 AM
Result Status: Final result
Abnormal: Yes
Resulting Lab: [facility]
[address] [facility] [address]
[facility] [address]

CULTURE

>100,000 colonies/mL Citrobacter freundii (Abnormal)

This bacterial species is known to produce an inducible AmpC beta
lactamase. Except for the treatment of simple cystitis, recommend avoiding
penicillins or cephalosporins other than cefepime.

<10,000 colonies/ml mixed normal bessy

SUSCEPTIBILITY

Citrobacter
freundii
METHOD MICROBROTH
DILUTIONS

CEFEPIME <=1 Susceptible
CEFOXITIN 32 Resistant
CEFTRIAXONE <=1 Susceptible
CIPROFLOXACIN <=0.25 Susceptible
GENTAMICIN <=1 Susceptible
NITROFURANTOIN <=16 Susceptible
PIPERACILLIN TAZOBACTAM <=4 Susceptible
TRIMETH/SULFAMETHOXAZOLE <=20 Susceptible

null Performing Location [facility] - [address] [facility] [address] [facility] [address]
--- OUTSIDE RECORDS SUMMARY | 2023-08-06 09:59 | External Medical Summary | Summary of Care ---
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 90 Tab 0 09/04/2017 Active cholecalciferol, VIT D3, (VITAMIN D3) 1000 UNITS Tablet Take 1 Tablet by mouth in the morning. 0 04/17/2019 Active OneTouch Ultra Blue In Vitro Strip (Glucose Blood)Indications:Type 2 diabetes mellitus with hemoglobin A1c goal of less than 7.0% ([facility]) Use to test blood sugar once daily 100 Strip 11 06/11/2020 Active Zoster Vac Recomb Adjuvanted 50 MCG/0.5ML Intramuscular Suspension Reconstituted (Shingrix)Indications: Need for vaccination for zoster Inject 0.5 mL into a large muscle now and repeat dose in 60 to 180 days 1 Each 1 06/28/2022 Active Atenolol 25 MG Oral Tablet (Tenormin)Indications: HTN, goal below 130/80 Take 1 tablet by mouth once daily 90 Tablet 3 02/23/2023 Active amLODIPine Besylate 10 MG Oral Tablet (Norvasc)Indications:H TN, goal below 130/80 Take 1 tablet by [...] 02/26/2023 Active Folic Acid 1 MG Oral TabletIndications:Foli c acid deficiency Take 1 Tablet by mouth in the morning. 30 Tablet 11 04/03/2023 Active Atorvastatin Calcium 40 MG Oral Tablet (Lipitor)Indications:D yslipidemia, goal LDL below 100 Take 1 tablet by mouth once daily 90 Tablet 1 04/04/2023 Active Dorzolamide HCl 2 % Ophthalmic Solution (Trusopt Ocumeter Plus) Instill 1 Drop into both eyes in the morning and 1 Drop in the evening. 30 mL 3 04/19/2023 Active Rocklatan 0.02-0.005 % Ophthalmic Solution (Netarsudil-Latanopros t) Instill 1 Drop into both eyes every evening. 7.5 mL 3 04/19/2023 Active Pantoprazole Sodium 40 MG Oral Tablet Delayed Release (Protonix)Indications: Gastroesophageal reflux disease with esophagitis, unspecified whether hemorrhage Take 1 Tablet by mouth in the morning. 30 Tablet 5 06/05/2023 Active Brimonidine Tartrate-Timolol 0.2-0.5 % Ophthalmic Solution (Combigan) Instill 1 Drop into both eyes in the morning and 1 Drop before bedtime. 30 mL 3 06/29/2023 Active Famotidine 20 MG Oral Tablet (Pepcid)Indications:Ga stroesophageal reflux disease with esophagitis, unspecified whether hemorrhage Take 1 Tablet by mouth in the morning and 1 Tablet before bedtime. 180 Tablet 3 07/04/2023 Active Lisinopril 5 MG Oral Tablet (Prinivil)Indications: HTN, goal below 130/80 Take 1 tablet by [...] as of this encounter (statuses as of 07/31/2023) Active Problems Problem Noted Date Diagnosed Date [...] as of this encounter (statuses as of 07/31/2023) Resolved Problems Problem Noted Date Diagnosed Date [...] as of this encounter (statuses as of 07/31/2023) Immunizations Name Administration Dates Next Due COVID-19 mRNA, LNP-s, No Pre serve, 2-Dose Series (Buzzvil) 09/03/2020,08/13/2020 Pneumococcal Conjugate Vacc, 13 Valent (Prevnar) [...] Date Smoking Tobacco: Never Smokeless Tobacco: Never Alcohol Use Standard Drinks/Week Comments No 0 [...] on file documented as of this encounter Progress Notes * Nitish Crooks, - 07/31/2023 2:30 PM EDT [facility] [place] Nursing notes reviewed. Eye vitals reviewed. Mood and Affect: normal HPI: Stephanie Mccauley is a 72 year old female who presents for DR No other eye complaints. Denies significant pain. Base Eye Exam Visual Acuity (Snellen - Linear) Right Left Dist sc 20/100 -1 20/100 -1 Dist ph sc 20/70 -2 NI Tonometry (Tonopen, 2:37 PM) Right Left Pressure 21 20 Pupils Dark Light Shape React APD Right 4.5 4 Round Sluggish None Left 3 3 Round Minimal None Visual Herman (Counting fingers) Right Left Full Full Extraocular Movement Right Left Full, Ortho Full, Ortho Neuro/Psych Oriented x3: Yes Mood/Affect: Normal Dilation Both eyes: 0.5% Proparacaine @ 2:37 PM Dilation #2 Both eyes: 1.0% Mydriacyl, 2.5% Phenylephrine @ 2:37 PM Dilation Comments Patient cautioned that effects of dilation may last 2-7 hours dependant upon individual reaction. It was discussed that driving while dilated is not recommended. EXTERNAL: The ocular adnexae are unremarkable. SLE: Lids/Lashes: wnl OU Conjunctiva/Sclera: Ahmed ST OD; quiet OU Cornea: clear OU Anterior Chamber: tube OD; deep and quiet OU Iris: mostly resolved ++NVI OD; resolved trace NVI OS--improved Lens: PCIOL OU, s/p yag cap OU GONIOSCOPY: 11/08/2022 compared to 11/02/2022 OD: mostly closed, NVA x 360--resolved OS: open to SS, +NVA Dilated fundus exam OD: vitreous: clear optic nerve: 0.3, no edema/pallor/NVD macula: no CIDME, +automotive service director vessels: wnl midperiphery: +automotive service director periphery: PRP, no RT/RD Dilated fundus exam OS: vitreous: clear optic nerve: 0.3, no edema/pallor/NVD macula: no CIDME, +automotive service director vessels: wnl midperiphery: +automotive service director periphery: PRP, no RT/RD OCT Interpretation: OD: scattered mild chronic DME, no srfluid, no PVD - improved 28um prior worse 54um prior improved 35um, prior mildy worse, prior improved, prior STABLE OS: no sig DME, no srlfuid, no PVD - STABLE, prior STABLE OCTA Interpretation: 07/31/2023 OD: capillary nonperfusion OS: capillary nonperfusion A/P: 1. Proliferative diabetic retinopathy OU -++DME OU on presentation OD: -s/p Triesence OD 12/25/14--great response -s/p ILUVIEN OD (07/29/15) -s/p FML/micropulse 01/03/17 -s/p Triesence (08-18-16) -s/p Eylea OD (10/31/21, 08/15/21, 06/08/21, 04/22/21, 02-15-21, 01-03-21, 11-11-20, 09-23-20, 08-05-20, 06-22-20, 20, 20, 20, 20, 20, 20, 03-27-19, 19, 19, 10-16-18, 08-01-18, 06-20-18, 05-02-18, 18, 10-05-2017, 05/15/17, 01-18-17, 10-31-16, 07/06/16, 05-25-17, 02/03/16, 10/22/15, 09/09/15..., 05/19/15, 03/18/15, 11/11/14, 10/15/14, 09/15/14) -Vabysmo OD 11/02/22--NVI/NVA, 04/20/22, 01/27/22 -7 months -s/p PRP 01/31/23, 01/03/23 -monitor OS: -s/p Triescence OS 02/04/15--great response -s/p ILUVIEN OS (05/13/15) -s/p Eylea OS (12/10/21, 09/23/21, 07/08/21, 03/21/21, 01-24-21, 12-09-20, 10-28-20, -06-27, 07-22-20, 06-01-20, 02-10-, 12-02-20, 20, 08-19-20, 06-30-20, 05-06-20, 03-19-19, 02-05-19, 12-18-18, 10-24-18, 08-15-18, 07-03-18, 04-18-18, 18, 06-26-2017, 03-29-17, 12/07/16, 08-03-16, 04/20/16, 01/06/16, 09/24/15, 04/29/15, 01/07/15, 11/26/14, 10/29/14, 09/24/14) -Vabysmo OS 03/28/23, 11/08/22--NVI, 06/01/22, 03/09/2022 -10 weeks -s/p PRP 01/24/23 -monitor -recommend HgbA1C <7, BP and lipid control. 2. Neovascular Glaucoma OU -s/p Ahmed OD--Bashir -last appoint w/ Dr. Camejo 07/20/23 Current Eye meds: BOTH EYES CONT Brimonidine-timolol 2 times a day CONT Dorzolamide 2 times a day CONT Rocklatan at bedtime CONT TO HOLD Diamox 500mg qday-bid 3. Myopia OU -(-3.50D) -no myopic retinopathy 4. Pseudophakia OU -stable, by Dr. Haile -does not drive f/u 4-6 weeks, OCT OU Nitish Crooks DO CC: Dr. Camejo CC: Palmer Haile DO PCP: Ghislaine Hernandez DO documented in this encounter Nursing Notes * Porsha Adkins RN - 07/31/2023 2:28 PM EDT Stephanie Mccauley is a 72 year old year old female who presents for PDR OU. Last Office Visit: 06/06/2023 (in office), Visit date not found (telemedicine) Patient currently states "eyes blurry but likely from the Rocklatan drops so stopped for a couple of days and right eye worse than left- maybe need shot" Are you diabetic? Yes. Do you check your blood sugars daily? YES. Fasting BS this mornin mg/dl. Last Hemoglobin A1C: Lab Results Component Value Date/Time HGBA1C 7.3 (H) 07/04/2023 03:02 PM HGBA1C 6.7 (H) 01/15/2023 03:15 PM HGBA1C 6.9 (H) 07/11/2022 03:38 PM HGBA1C 6.5 (H) 09/20/2019 09:37 AM HGBA1C 6.9 (H) 03/13/2019 10:25 AM HGBA1C 6.7 (H) 09/10/2018 11:[address]? no OCT image(s) of both eyes acquired and filed/scanned into chart. documented in this encounter Plan of Treatment Upcoming Encounters Date Type Department Care Team (Latest Contact Info) Description 08/02/2023 9:30 AM EDT Office Visit Nephrology, [facility] [address] [place] [address] ZemaJennifer palomino PA-C [address] [facility] [place] [address] 09/04/2023 11:15 AM EDT Hospital Encounter ENDO [facility], Endoscopy Room [facility] [address] [place] [phone] Brent Alcantara MD [address] [place] [address] 09/04/2023 11:15 AM EDT - 09/04/2023 11:45 AM EDT Surgery ENDO [facility], Endoscopy Room [facility] [address] [place] [phone] Brent Alcantara MD [address] [place] [address] ESOPHAGOGASTRODUODENOSCOPY (EGD), FLEXIBLE, TRANSORAL, DIAGNOSTIC 10/01/2023 9:00 AM EDT Imaging Radiology [address] [place] [address] 01/08/2024 1:00 PM EDT Office Visit [facility] [address] [place] [address] Ghislaine Hernandez, DO [address] [place] [address] 07/08/2024 1:00 PM EDT Office Visit 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, unspecified proliferative retinopathy type (HCC) Ordered: 07/31/2023 Scheduled Procedures Name Priority Associated Diagnoses Date/Ti me ESOPHAGOGASTRODUODENOSCOPY ( EGD), FLEXIBLE, TRANSORAL, DIAGNOSTIC GERD (gastroesophageal reflux disease) 09/04/2023 11:15 AM EDT COLONOSCOPY FLEXIBLE PROXIMA L DIAGNOSTIC Recall Encounter for screening colonoscopy Health Maintenance Due Date Last Done Comments Cologuard 08/16/1996 Sigmoidoscopy 08/16/1996 Zoster Vaccines (3 of 3) 01/26/2019 12/01/2018, 12/09 COVID-19 Vaccine (2022- season) 2022 09/03/2020, 08/13/2020 Depression Screening 06/29/2023 06/28/2022 Mammogram 09/28/2023 09/27/2022, 09/08, 09/26/2021, Additional history exists Diabetic Eye Exam 11/14/2023 11/13/2022, , 11/13/2022, Additional history exists GFR 01/04/2024 07/04/2023, 03/10, 03/30/2023, Additional history exists HbA1c 01/04/2024 07/04/2023, 10/0 12/2022, 07/11/2022, Additional history exists B-12 03/30/2024 03/30/2023, 10/0 12/2022, 04/28/2022, Additional history exists CKD HGB USE SMARTSET 53191 04/06/202404/06, 04/06/2023, 03/30/2023, Additional history exists Fecal Occult Blood Test 04/11/2024 04/11/2023, 10/05 DXA Scan 04/30/2024 04/30/2017 CKD PHOS USE SMARTSET 10996 07/03/202406/08, 07/11/2022, 06/14/2021, Additional history exists Diabetic Foot Exam 07/03/2024 07/04/2023, 0 06/28/2022, 06/14/2021, Additional history exists Albumin/Creatinine Ratio 07/05/2024 024, 07/11/2022, 01/10/2022, Additional history exists DTaP,Tdap,and Td Vaccines (2 - Td or Tdap) 07/17/2024 07/17/2014 Colonoscopy 12/07/2027 12/06/2017, 08, 11/16/2014, Additional history exists Colorectal Cancer Screening [...] this encounter Medical Devices Implanted Type Area Rn Wellness Device Identifier Shelf Expiration Date Model / Serial / Lot Shunt Tube Glaucoma Ahmed Fp7 - [id number] - [id number] Implanted:Qty: 1 on 11/17/2022 by Carolina Ramirez MD at [facility] Right: Eye [employer] [id number] 09/17/2024 FP7 / [id number] / [id number] Graft [place] Cornea Split - [id number] Implanted:Qty: 1 on 11/17/2022 by Carolina Ramirez MD at [facility] Right: Eye [employer] 09/11/2024 O-HH1 / [id number] / [id number] documented as of this encounter Visit Diagnoses Diagnosis 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 Care Teams Real Estate Operations Manager Relationship Specialty Start Date End Date Ghislaine Hernandez DO [address] [place] [address] PCP - General Family Medicine 07/09/14 documented as of this encounter
--- OUTSIDE RECORDS SUMMARY | 2023-08-06 09:59 | External Medical Summary | Summary of Care ---
Author Name Unknown Organization [facility] Address [address] [place] [address] Phone [phone] Care Team Providers Care Hatchery Supervisor Name Role Phone NathanielGhislaine alcantar DO Primary Care Provider [phone] Reason for Visit * Reason Comments Outpatient Testing Encounter Details Date Type Department Care Team (Late st Contact Info) Description 08/02/2023 10:40 AM EDT Laboratory Laboratory [facility] [address] [place] [address] [place], [address] Scenery [address] [place] [address] Stage 3b chronic kidney disease (HCC) Allergies Active Allergy Reactions Criticality Noted Date Comments Bee Venom Edema airway,Edema Other High 01/15/2014 Eye swelled shut Ciprofloxacin Other (Please comment) Medium 11/24/2016 Trouble breathing, nausea Furosemide Rash 08/02/2023 Nitrofurantoin 11/08/2018 vomiting Sulfa Antibiotics Hives,Other (Please comment) 01/15/2014 Boil/Acne like sores on abdomen documented as of this encounter (statuses as of 08/02/2023) Medications Medication Sig Dispensed Refills Start Date [...] hemoglobin A1c goal of less than 7.0% ([facility]) Use to test blood sugar [...] as of this encounter (statuses as of 08/02/2023) Active Problems Problem Noted Date Diagnosed Date [...] as of this encounter (statuses as of 08/02/2023) Resolved Problems Problem Noted Date Diagnosed Date [...] as of this encounter (statuses as of 08/02/2023) Immunizations Name Administration Dates Next Due COVID-19 [...] on file documented as of this encounter Plan of Treatment Upcoming Encounters Date Type Department Care Team (Latest Contact Info) Description 4 11:15 AM EDT Hospital Encounter ENDO O[facility], Endoscopy Room [facility] [address] [phone] Brent Alcantara MD [address] [place] [address] 4 11:15 AM EDT - 4 11:45 AM EDT Surgery ENDO [facility], Endoscopy Room [facility] [address] [phone] Brent Alcantara MD [address] [place] [address] ESOPHAGOGASTRODUODENOSCOPY (EGD), FLEXIBLE, TRANSORAL, DIAGNOSTIC 4 1:15 PM EDT Office Visit Ophthalmology, [facility] [address] [address] Nitish Crooks DO [address] [place] [address] 4 9:00 AM EDT Imaging Radiology [facility] 1st Floor, [place] [address] [place] [address] 4 1:00 PM EDT Office Visit [facility] [address] [place] [address] Ghislaine Hernandez, DO [address] [place] [address] 5 1:00 PM EDT Office Visit [facility] [address] [place] [address] Ghislaine Hernandez, DO [address] [place] [address] Pending Results Name Type Priority Associated Diagnoses Date /Time BASIC METABOLIC PANEL Lab Routine Stage 3b chronic kidney disease (HCC) 08/02/2023 10:44 AM EDT URINALYSIS WITH MICROSCOPIC EXAM Lab Routine Stage 3b chronic kidney disease (HCC) 08/02/2023 10:49 AM EDT ALBUMIN / CREATININE RATIO, URINE Lab Routine Stage 3b chronic kidney disease ([facility]) 08/02/2023 10:49 AM EDT Scheduled Procedures Name Priority Associated Diagnoses Date/Ti [...] Additional history exists CKD HGB USE SMARTSET 44744 04/06/202404/06, 04/06/2023, 03/30/2023, Additional history exists Fecal Occult Blood Test 04/11/2024 04/11/2023, 10/05 DXA Scan 04/30/2024 04/30/2017 CKD PHOS USE SMARTSET 92400 07/03/202406/08, 07/11/2022, 06/14/2021, Additional history exists Diabetic Foot Exam 07/03/2024 07/04/2023, 0 06/28/2022, 06/14/2021, Additional history exists Albumin/Creatinine Ratio 07/05/2024 024, 07/11/2022, 01/10/2022, Additional history exists DTaP,Tdap,and Td Vaccines (2 - Td or Tdap) 07/17/2024 07/17/2014 Colonoscopy 12/07/2027 12/06/2017, 11/09, 11/16/2014, Additional history [...] this encounter Medical Devices Implanted Type Area Propellant Charge Zone Assembler Device Identifier Shelf Expiration Date Model / Serial / Lot Shunt Tube Glaucoma Ahmed Fp7 - [id number] - [id number] Implanted:Qty: 1 on 11/17/2022 by Carolina Ramirez MD at OR [facility] Right: Eye [employer] [id number] 09/17/2024 7 / [id number] / [id number] [id number] [place] Cornea Split - [id number] Implanted:Qty: 1 on 11/17/2022 by Carolina Ramirez MD at OR [facility] Right: Eye [employer] 09/11/2024 O-HH1 / [id number] documented as of this encounter Visit Diagnoses Diagnosis Stage 3b chronic kidney disease (HCC) GERD (gastroesophageal reflux disease) Esophageal reflux documented in this encounter Advance Directives Latest Code Status on File Code Status Date Activated Date Inactivated Comments Full Code 07/28/2014 3:21 PM 07/31/2014 4:03 PM This order reflects the patients wishes and were consensually agreed upon. Care Teams Hatchery Supervisor Relationship Specialty Start Date End Date Ghislaine Hernandez DO [address] [address] PCP - General Family Medicine 07/09/14 documented as of this encounter
--- OUTSIDE RECORDS SUMMARY | 2023-08-06 09:59 | External Medical Summary ---
Author Name Unknown Address Unknown Organization K09:[facility] [place] [address] Laboratory Report Ordering Provider Test Date Status MARISELA CANNONITIS 08/02/2023 10:49:13 Final Observation Date Value Abnormality Reference (Units ) Status Color of Urine by Auto 08/02/2023 10:49:13 Yellow Colorless, Light Yellow, Yellow, Dark Yellow Final Clarity, Urine 08/02/2023 10:49:13 Clear Clear Final Glucose [Mass/volume] in Urine by Automated test strip 08/02/2023 10:49:13 Negative Negative (mg/dL) Final Bilirubin.total [Presence] in Urine by Automated test strip 08/02/2023 10:49:13 Negative Negative Final Ketones [Mass/volume] in Urine by Automated test strip 08/02/2023 10:49:13 Negative Negative (mg/dL) Final Specific gravity, Urine 08/02/2023 10:49:13 1.010 1.003-1.030 Final Hemoglobin [Presence] in Urine by Automated test strip 08/02/2023 10:49:13 Negative Negative Final pH, Urine 08/02/2023 10:49:13 5.5 5.0-7.5 (Units) Final Protein [Mass/volume] in Urine by Automated test strip 08/02/2023 10:49:13 Negative Negative (mg/dL) Final Urobilinogen [Mass/volume] in Urine by Automated test strip 08/02/2023 10:49:13 0.2 0.2, 1.0 (mg/dL) Final Nitrite [Presence] in Urine by Automated test strip 08/02/2023 10:49:13 Positive Abnormal Negative Final Leukocyte esterase [Presence] in Urine by Automated test strip 08/02/2023 10:49:13 Small Abnormal Negative Final RBC, Urine 08/02/2023 10:49:13 0-2 0-2 (/HPF) Final WBC, Urine 08/02/2023 10:49:13 50+ Abnormal 0-2 (/HPF) Final Bacteria [#/area] in Urine sediment by Microscopy high power field 08/02/2023 10:49:13 >200 Abnormal 0-25 (/HPF) Final Performing Location [facility] [place] [address]
--- OUTSIDE RECORDS SUMMARY | 2023-08-06 09:59 | External Medical Summary ---
Author Name Unknown Address Unknown Organization K09:[facility] [place] [address] Laboratory Report Ordering Provider Test Date Status JETT CANNON 08/02/2023 10:44:39 Final Observation Date Value Abnormality Reference (Units ) Status BUN 08/02/2023 10:44:39 42 Above high normal 6-20 (mg/dL) Final Creatinine 08/02/2023 10:44:39 1.5 Above high normal 0.5-1.0 (mg/dL) Final Glomerular filtration rate/1.73 sq M.predicted [Volume Rate/Area] in Serum, Plasma or Blood by Creatinine-based formula (CKD-EPI) 08/02/2023 10:44:39 36 Below low normal >=60 (mL/min) Final eGFR is calculated based on the CKD-EPI 2020 equation Sodium 08/02/2023 10:44:39 141 135-146 (m mol/L) Final Potassium 08/02/2023 10:44:39 5.2 Above high normal 3. 5-5.1 (mmol/L) Final Cl 08/02/2023 10:44:39 105 98-107 (mm ol/L) Final CO2 08/02/2023 10:44:39 24 22-32 (mmo l/L) Final Anion gap 08/02/2023 10:44:39 12 7-15 (mmol /L) Final Glucose 08/02/2023 10:44:39 119 70-120 (mg /dL) Final Calcium 08/02/2023 10:44:39 9.9 8.4-10.2 ( mg/dL) Final Performing Location [facility] [place] [address]
--- OUTSIDE RECORDS SUMMARY | 2023-08-06 09:59 | External Medical Summary ---
Author Name Unknown Address Unknown Organization K01:[facility] - [address] [place] [address] Laboratory Report Ordering Provider Test Date Status JETT CANNON 08/02/2023 10:49:13 Final Normal: <30 mg/g creatinine< br/>High: 30-300 mg/g creatinine
Very High: >300 mg/g creatinine
Nephrotic: >2200 mg/g creatinine Observation Date Value Abnormality Reference (Units ) Status Albumin, Urine 08/02/2023 10:49:13 <1.20 (mg/dL) Final Creatinine, Urine 08/02/2023 10:49:13 57 (mg/dL) Final Albumin/Creatinine [Mass Ratio] in Urine 08/02/2023 10:49:13 <21 <30 (mg/g Creat) Final Performing Location [facility] - [address] [place] [address]
--- OUTSIDE RECORDS SUMMARY | 2023-08-06 09:59 | External Medical Summary | Summary of Care ---
Author Name Unknown Organization [facility] Address [address] [place] [address] Phone [phone] Care Team Providers Care Primer Press Operator Name Role Phone NathanielGhislaine alcantar DO Primary Care Provider [phone] Reason for Visit * Reason Comments Outpatient Testing Encounter Details Date Type Department Care Team (Late st Contact Info) Description 08/02/2023 10:40 AM EDT Laboratory Laboratory [facility] [address] [place] [address] [place], Lab Scenery [address] [place] [address] Stage 3b chronic kidney disease (HCC) Allergies [...] goal of less than 7.0% ([facility]) Use to test blood sugar once daily [...] EDT Hospital Encounter ENDO OSSC, Endoscopy Room [facility] [address] [phone] Brent Alcantara MD [address] [place] [address] 4 11:15 AM EDT - 4 11:45 AM EDT Surgery ENDO [facility], Endoscopy Room [facility] [address] [phone] Brent Alcantara MD [address] [place] [address] ESOPHAGOGASTRODUODENOSCOPY (EGD), FLEXIBLE, TRANSORAL, DIAGNOSTIC 4 1:15 PM EDT Office Visit Ophthalmology, [facility] [address] [address] Nitish Crooks DO [address] [address] 4 9:00 AM EDT Imaging Radiology [facility] 1st Floor, [place] [address] [place] [address] 4 1:00 PM EDT Office Visit [facility] [address] [place] [address] Ghislaine Hernandez, DO [address] [place] [address] 5 1:00 PM EDT Office Visit [facility] [address] [place] [address] Ghislaine Hernandez, DO [address] [place] [address] Pending Results Name Type Priority Associated Diagnoses Date /Time BASIC METABOLIC PANEL Lab Routine Stage 3b chronic kidney disease (HCC) 08/02/2023 10:44 AM EDT URINALYSIS WITH MICROSCOPIC EXAM Lab Routine Stage 3b chronic kidney disease (HCC) 08/02/2023 10:49 AM EDT ALBUMIN / CREATININE RATIO, URINE Lab Routine Stage 3b chronic kidney disease ([facility]) 08/02/2023 10:49 AM EDT Scheduled Procedures Name [...] Additional history exists CKD HGB USE SMARTSET 90871 04/06/202404/06, 04/06/2023, 03/30/2023, Additional history exists Fecal Occult Blood Test 04/11/2024 04/11/2023, 10/05 DXA Scan 04/30/2024 04/30/2017 CKD PHOS USE SMARTSET 28656 07/03/202406/08, 07/11/2022, 06/14/2021, Additional history exists Diabetic [...] this encounter Medical Devices Implanted Type Area Thimble Press Operator Device Identifier Shelf Expiration Date Model / Serial / Lot Shunt Tube Glaucoma Ahmed Fp7 - [id number] - [id number] Implanted:Qty: 1 on 11/17/2022 by Carolina Ramirez MD at [facility] Right: Eye [employer] [id number] 09/17/2024 7 / [id number] / [id number] Graft [place] Cornea Split - [id number] Implanted:Qty: 1 on 11/17/2022 by Carolina Ramirez MD at OR [facility] Right: Eye [employer] 09/11/2024 O-HH1 / [id number] / [id number] documented as of this encounter Visit Diagnoses Diagnosis Stage 3b chronic kidney disease (HCC) GERD (gastroesophageal reflux disease) Esophageal reflux documented in this encounter Advance Directives Latest Code Status on File Code Status Date Activated Date Inactivated Comments Full Code 07/28/2014 3:21 PM 07/31/2014 4:03 PM This order reflects the patients wishes and were consensually agreed upon. Care Teams Primer Press Operator Relationship Specialty Start Date End Date Ghislaine Hernandez DO [address] [address] PCP - General Family Medicine 07/09/14 documented as of this encounter
--- OUTSIDE RECORDS SUMMARY | 2023-08-06 09:59 | External Medical Summary | Summary of Care ---
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 90 Tab 0 09/04/2017 Active cholecalciferol, VIT D3, (VITAMIN D3) 1000 UNITS Tablet Take 1 Tablet by mouth in the morning. 0 04/17/2019 Active OneTouch Ultra Blue In Vitro Strip (Glucose Blood)Indications:T ype 2 diabetes mellitus with hemoglobin A1c goal of less than 7.0% ([facility]) Use to test blood sugar once daily 100 Strip 11 06/11/2020 Active Zoster Vac Recomb Adjuvanted 50 MCG/0.5ML Intramuscular Suspension Reconstituted (Shingrix)Indicatio ns:Need for vaccination for zoster Inject 0.5 mL into a large muscle now and repeat dose in 60 to 180 days 1 Each 1 06/28/2022 Active Atenolol 25 MG Oral Tablet (Tenormin)Indicatio ns:HTN, goal below 130/80 Take 1 tablet by mouth once daily 90 Tablet 3 02/23/2023 Active amLODIPine Besylate 10 MG Oral Tablet (Norvasc)Indication s:HTN, goal below 130/80 Take 1 tablet [...] 02/26/2023 Active Folic Acid 1 MG Oral TabletIndications:F olic acid deficiency Take 1 Tablet by mouth in the morning. 30 Tablet 11 04/03/2023 Active Atorvastatin Calcium 40 MG Oral Tablet (Lipitor)Indication s:Dyslipidemia, goal LDL below 100 Take 1 tablet by mouth once daily 90 Tablet 1 04/04/2023 Active Dorzolamide HCl 2 % Ophthalmic Solution (Trusopt Ocumeter Plus) Instill 1 Drop into both eyes in the morning and 1 Drop in the evening. 30 mL 3 04/19/2023 Active Rocklatan 0.02-0.005 % Ophthalmic Solution (Netarsudil-Latanop marisa) Instill 1 Drop into both eyes every evening. 7.5 mL 3 04/19/2023 Active Pantoprazole Sodium 40 MG Oral Tablet Delayed Release (Protonix)Indicatio ns:Gastroesophageal reflux disease with esophagitis, unspecified whether hemorrhage Take 1 Tablet by mouth in the morning. 30 Tablet 5 06/05/2023 Active Brimonidine Tartrate-Timolol 0.2-0.5 % Ophthalmic Solution (Combigan) Instill 1 Drop into both eyes in the morning and 1 Drop before bedtime. 30 mL 3 06/29/2023 Active Famotidine 20 MG Oral Tablet (Pepcid)Indications :Gastroesophageal reflux disease with esophagitis, unspecified whether hemorrhage Take 1 Tablet by mouth in the morning and 1 Tablet before bedtime. 180 Tablet 3 07/04/2023 Active Lisinopril 5 MG Oral Tablet (Prinivil)Indicatio ns:HTN, goal below 130/80 Take 1 tablet by mouth once daily 90 Tablet 3 07/13/2023 Active acetaZOLAMIDE ER 500 MG Oral Capsule Extended Release 12 Hour (Diamox Sequels) Take 1 Capsule by mouth in the morning and 1 Capsule before bedtime. 60 Capsule 1 06/29/2023 4 Discontinued Hospital, Clinic, or Other Facility Administered Medication [...] as of this encounter (statuses as of 07/20/2023) Active Problems Problem Noted Date Diagnosed Date [...] as of this encounter (statuses as of 07/20/2023) Resolved Problems Problem Noted Date Diagnosed Date [...] as of this encounter (statuses as of 07/20/2023) Immunizations Name Administration Dates Next Due COVID-19 mRNA, LNP-s, No Pre serve, 2-Dose Series (Sanergy) 09/03/2020,08/13/2020 Pneumococcal Conjugate Vacc, 13 Valent (Prevnar) [...] as of this encounter Progress Notes * Bashir Alejandra, Carolina Mortensen MD - 07/20/2023 1:15 PM EDT Summary of patient's history Glaucoma diagnosis: POAG mod-sev OU / NVG OD Other ocular diagnoses Current ocular medication Glaucoma medications to avoid Severe NPDR OU, CME OU Pseudophakia OU Dry eyes Brimonidine-timolol bid both eyes Dorzolamide bid both eyes Rocklatan at bedtime both eyes none Right eye Left eye Ocular surgery CE/IOL Anti-VEGF injections SLT (12/2020) Ahmed sulcus (11/17/22) CE/IOL Anti-VEGF injections SLT (12/2020) Max IOP 32 33 Target IOP 18-low 20s 18-low 20s Gonioscopy D40f tr D40f tr Central corneal thickness 546 556 Family history of glaucoma? no Past medical history: DM Social history: Tobacco use: no - Driving: no History of Present Illness Nursing notes reviewed. Medication record and past medical history/surgical history reviewed with patient and in Epic. Here for IOP check. No change in vision. Exam Base Eye Exam Visual Acuity (Snellen - Linear) Right Left Dist sc 20/60 20/80 -2 Tonometry (Applanation, 1:27 PM) Right Left Pressure 16 13 Pachymetry (01/13/2022) Right Left Thickness 546 556 Pupils Shape React APD Right Round Minimal None Left Round Minimal None Visual Herman (Counting fingers) Right Left Full Full Extraocular Movement Right Left Full Full Neuro/Psych Oriented x3: Yes Mood/Affect: Normal Slit Lamp and Fundus Exam External Exam Right Left External Normal Normal Slit Lamp Exam Right Left Lids/Lashes Normal Normal Conjunctiva/Sclera tube well covered White and quiet Cornea Clear Clear Anterior Chamber tube in sulcus Deep and quiet Iris Round and reactive, subtle NVI Round and reactive Lens PCIOL PCIOL Vitreous Normal Normal [place] visual field 24-2 - 01/13/2022 OD: good reliability. MD -9.46. PSD 8.89. SAD>IAD. Stable to scanned field from 2019. OS: good reliability. MD -10.31. PSD 9.10. IAD>SAD. Stable to scanned field from 2019. [place] visual field 24-2 - 11/13/2022 OD: good reliability. MD -7.94. PSD 6.79. SAD>IAD. Stable to prior in 11/2021 OS: good reliability. MD -11.74. PSD 9.82. IAD+SAD. Some progression from previous in 11/2021 OCT RNFL - 01/13/2022 OD: good reliability. Ave RNFL 69. S/I thin. Baseline. OS: good reliability. Ave RNFL 61. S/I thin. Baseline. Assessment & Plan # POAG OU - mod-severe She has tolerated IOP in the 20s rage with stable visual herman in the past Optic nerves with small cups # Neovascular glaucoma OD S/p sulcus Ahmed Discussed option of SHOPPER or MP-SHOPPER to help blunt hypertensive phase, with the potential risk of worsening CME again IOP great off diamox x3 days, will monitor Plan to add back diamox 500 mg daily if IOP >25 # Moderate NPDR OU with CME OU S/p multiple injections including vabysmo x3 starting 03/2022. Continue glycemic control Follows with Dr Crooks # Pseudophakia OU Vision stable Monitor Return for 3-4 months OCT nerve, [place] visual field 24-2. Nenita Castro, OSC scribing for and in the presence of Dr. Carolina Alejandra MD. 06/15/2023. This note is prepared by AVEL Rollins acting as a scribe for me. The scribe's documentation has been prepared under my direction and personally reviewed by me in its entirety. I confirm that the note above accurately reflects all work, treatment, procedures and medical decision making performed by me. Carolina Alejandra MD Final eye medication list BOTH EYES Brimonidine-timolol 2 times a day Dorzolamide 2 times a day Rocklatan at bedtime documented in this encounter Nursing Notes * Gavin Sethi CT - 07/20/2023 1:01 PM EDT Stephanie Mccauley presents for IOP check. Last Visit: 06/15/2023 (in office), Visit date not found (telemedicine) She currently states no change in vision. Current Ophthalmic Medications: Rocklatan daily ou Brimonidine tartrate 0.2% op soln 1 gtt both eyes BID Dorzolamide HCL 2% op soln 1 gtt both eyes BID Vision and IOP by air tonometry if done can be found in the ophth exam. Patient was instructed to not get up on the exam table/exam chair until directed and assisted by their provider; patient is to remain seated in the chair/ wheelchair/ exam table/ exam chair for fall prevention and safety reasons. Patient is aware to have assistance to step down off exam table/exam chair with personnel. Patient voiced full comprehension of instructions. documented in this encounter Plan of Treatment Upcoming Encounters Date Type Department Care Team (Latest Contact Info) Description 4 2:30 PM EDT Office Visit Ophthalmology, [facility] [address] [place] [address] Nitish Crooks, [address] [address] 4 9:30 AM EDT Office Visit Nephrology, [place] [address] [place], [place] [address] Zemaitis, Jennifer Manzano PA-C [address] [facility] [place] [address] 4 11:15 AM EDT Hospital Encounter ENDO OSS, Endoscopy Room [facility] [address] [place] [phone] Brent Alcantara MD [address] [place] [address] 4 11:15 AM EDT - 4 11:45 AM EDT Surgery ENDO [facility], Endoscopy Room [facility] [address] [place] [phone] Brent Alcantara MD [address] [place] [address] ESOPHAGOGASTRODUODENOSCOPY (EGD), FLEXIBLE, TRANSORAL, DIAGNOSTIC 4 9:00 AM EDT Imaging Radiology [facility] [address] [facility] [address] [place] [address] 4 1:00 PM EDT Office Visit [facility] [address] [place] [address] Ghislaine Hernandez, DO [address] [place] [address] 5 1:00 PM EDT Office Visit [facility] [address] [place] [address] Ghislaine Hernandez, DO [address] [place] [address] Scheduled Procedures Name Priority Associated Diagnoses Date/Ti [...] Additional history exists CKD HGB USE SMARTSET 56019 04/06/202404/06, 04/06/2023, 03/30/2023, Additional history exists Fecal Occult Blood Test 04/11/2024 04/11/2023, 10/05 DXA Scan 04/30/2024 04/30/2017 CKD PHOS USE SMARTSET 69118 07/03/202406/08, 07/11/2022, 06/14/2021, Additional history exists Diabetic [...] this encounter Medical Devices Implanted Type Area Treasurer Device Identifier Shelf Expiration Date Model / Serial / Lot Shunt Tube Glaucoma Ahmed Fp7 - [id number] - [id number] Implanted:Qty: 1 on 11/17/2022 by Carolina Ramirez MD at OR [facility] Right: Eye [email or web address] [id number] 09/17/2024 FP7 / [id number] / [id number] Graft [place] Cornea Split - [id number] Implanted:Qty: 1 on 11/17/2022 by Carolina Ramirez MD at OR [facility] Right: Eye [employer] 09/11/2024 O-HH1 / [id number] / [id number] documented as of this encounter Visit Diagnoses Diagnosis Neovascular glaucoma of right eye, indeterminate stage- Primary 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 Care Teams Hoister Relationship Specialty Start Date End Date Ghislaine Hernandez DO [address] [place] [address] PCP - General Family Medicine 07/09/14 documented as of this encounter
--- OUTSIDE RECORDS SUMMARY | 2023-08-06 09:59 | External Medical Summary | Summary of Care ---
Author Name Unknown Organization [facility] Address [address] [place] [address] Phone [phone] Care Team Providers Care Procurement Manager Name Role Phone Ghislaine Hernandez Primary Care Provider [phone] Reason for Visit * Reason Onset Date Comments Test Results 08/03/2023 Encounter Details Date Type Department Care Team (Late st Contact Info) Description 08/03/2023 Telephone Nephrology, Luis Carney [address] [facility] [place] [address] Zemaitis, Jennifer Manzano PA-C [address] [facility] [place] [address] Test Results Allergies Active Allergy Reactions Criticality Noted Date [...] on file documented as of this encounter Miscellaneous Notes * Telephone Encounter - Teresita Neely LPN - 08/03/2023 2:04 PM EDT Pt is made aware Reviewed foods high in Potassium for pt to avoid Will await urine culture results and will notify pt regarding * Telephone Encounter - Teresita Neely LPN - 08/03/2023 2:04 PM EDT ----- Message from Jennifer Augustine PA-C sent at 08/03/2023 1:50 PM EDT ----- Please advise patient renal improved from June but not up to baseline Slightly elevated potassium - please monitor potassium intake Urine shows some concern with UTI - culture ordered documented in this encounter Plan of Treatment Upcoming Encounters Date Type Department Care Team (Latest Contact Info) Description 4 11:15 AM EDT Hospital Encounter ENDO [facility], Endoscopy Room [facility] [address] [place] [phone] Brent Alcantara MD [address] [place] [address] 4 11:15 AM EDT - 4 11:45 AM EDT Surgery ENDO [facility], Endoscopy Room [facility] [address] [place] [address] Brent Alcantara MD [address] [place] [address] ESOPHAGOGASTRODUODENOSCOPY (EGD), FLEXIBLE, TRANSORAL, DIAGNOSTIC 4 1:15 PM EDT Office Visit Ophthalmology, [facility] [address] [place] [address] Nitish Crooks, DO [address] [place] [address] 4 9:00 AM EDT Imaging Radiology [facility] 1st [facility] [address] [place] [address] 4 1:00 PM EDT Office Visit [facility] [address] [place] [address] Ghislaine Hernandez, DO [address] [place] [address] 5 1:00 PM EDT Office Visit [facility] [address] [place] [address] Ghislaine Hernandez, DO [address] [place] [address] Scheduled Procedures Name Priority Associated Diagnoses Date/Ti me ESOPHAGOGASTRODUODENOSCOPY ( EGD), FLEXIBLE, TRANSORAL, DIAGNOSTIC GERD (gastroesophageal reflux disease) 09/04/2023 11:15 AM EDT COLONOSCOPY FLEXIBLE PROXIMA L DIAGNOSTIC Recall Encounter for screening colonoscopy Health Maintenance Due Date Last Done Comments Cologuard 08/16/1996 Sigmoidoscopy 08/16/1996 Zoster Vaccines (3 of 3) 01/26/2019 12/01/2018, 12/09 COVID-19 Vaccine (3 - season) 2022 09/03/2020, 08/13/2020 Depression Screening 06/29/2023 06/28/2022 Mammogram 09/28/2023 09/27/2022, 09/08, 09/26/2021, Additional history exists Diabetic Eye Exam 11/14/2023 11/13/2022, , 11/13/2022, Additional history exists HbA1c 01/04/2024 07/04/2023, 10/0 12/2022, 07/11/2022, Additional history exists GFR 02/01/2024 08/02/2023, 06/08, 04/06/2023, Additional history exists B-12 03/30/2024 03/30/2023, 10/0 12/2022, 04/28/2022, Additional history exists CKD HGB USE SMARTSET 23842 04/06/202404/06, 04/06/2023, 03/30/2023, Additional history exists Fecal Occult Blood Test 04/11/2024 04/11/2023, 10/05 DXA Scan 04/30/2024 04/30/2017 CKD PHOS USE SMARTSET 76988 07/03/202406/08, 07/11/2022, 06/14/2021, Additional history exists Diabetic Foot Exam 07/03/2024 07/04/2023, 0 06/28/2022, 06/14/2021, Additional history exists DTaP,Tdap,and Td Vaccines (2 - Td or Tdap) 07/17/2024 07/17/2014 Albumin/Creatinine Ratio 08/01/2024 024, 07/06/2023, 07/11/2022, Additional history exists Colonoscopy 12/07/2027 12/06/2017, 08, 11/16/2014, Additional history [...] this encounter Medical Devices Implanted Type Area User Experience Designer Device Identifier Shelf Expiration Date Model / Serial / Lot Shunt Tube Glaucoma Ahmed 7 - [id number] - [id number] Implanted:Qty: 1 on 11/17/2022 by Carolina Ramirez MD at OR [facility] Right: Eye [employer] [id number] 09/17/2024 7 / [id number] / [id number] Graft [place] Cornea Split - [id number] Implanted:Qty: 1 on 11/17/2022 by Carolina Ramirez MD at OR [facility] Right: Eye [employer] 09/11/2024 O-HH1 / [id number] / [id number] documented as of this encounter Advance Directives Latest Code Status on File Code Status Date Activated Date Inactivated Comments Full Code 07/28/2014 3:21 PM 07/31/2014 4:03 PM This order reflects the patients wishes and were consensually agreed upon. Care Teams Procurement Manager Relationship Specialty Start Date End Date Ghislaine Hernandez DO [address] [place] [address] PCP - General Family Medicine 07/09/14 documented as of this encounter
--- OUTSIDE RECORDS SUMMARY | 2023-08-06 09:59 | External Medical Summary | Summary of Care ---
Author Name Unknown Organization [facility] Address [address] [place] [address] Phone [phone] Care Team Providers Care Inspector Balance Bridge Name Role Phone NathanielGhislaine alcantar DO Primary Care Provider [phone] Reason for Visit * Reason Comments Outpatient Testing Encounter Details Date Type Department Care Team (Late st Contact Info) Description 08/02/2023 10:40 AM EDT Laboratory Laboratory [facility] [address] [place] [address] [place], Lab Scenery [address] [place] [address] Stage 3b chronic kidney disease (HCC) Allergies [...] hemoglobin A1c goal of less than 7.0% ([facility]) Use to test blood sugar once daily [...] EDT Hospital Encounter ENDO [facility], Endoscopy Room [facility] [address] [place] [phone] Brent Alcantara MD [address] [place] [address] 4 11:15 AM EDT - 4 11:45 AM EDT Surgery ENDO [facility], Endoscopy Room [facility] [address] [place] [phone] Brent Alcantara MD [address] [place] [address] ESOPHAGOGASTRODUODENOSCOPY (EGD), FLEXIBLE, TRANSORAL, DIAGNOSTIC 4 1:15 PM EDT Office Visit Ophthalmology, [facility] [address] [place] [address] Nitish Crooks DO [address] [place] [address] 4 9:00 AM EDT Imaging Radiology [facility] 1st Floor, [place] [address] [place] [address] 4 1:00 PM EDT Office Visit [facility] [address] [place] [address] Ghislaine Hernandez, DO [address] [place] [address] 5 1:00 PM EDT Office Visit [facility] [address] [place] [address] Ghislaine Hernandez, DO [address] [place] [address] Pending Results Name Type Priority Associated Diagnoses Date /Time ALBUMIN / CREATININE RATIO, URINE Lab Routine Stage 3b chronic kidney disease (HCC) 08/02/2023 10:49 AM EDT Scheduled Orders Name Type Priority Associated Diagnoses Orde r Schedule URINALYSIS, REFLEX TO CULTURE (CUP ONLY) Lab Routine Stage 3b chronic kidney disease (HCC) Ordered: 08/02/2023 URINALYSIS, REFLEX TO CULTURE Lab Routine Stage 3b chronic kidney disease (HCC) Ordered: 08/02/2023 Scheduled Procedures Name Priority Associated Diagnoses Date/Ti [...] Additional history exists CKD HGB USE SMARTSET 69846 04/06/202404/06, 04/06/2023, 03/30/2023, Additional history exists Fecal Occult Blood Test 04/11/2024 04/11/2023, 10/05 DXA Scan 04/30/2024 04/30/2017 CKD PHOS USE SMARTSET 50715 07/03/202406/08, 07/11/2022, 06/14/2021, Additional history exists Diabetic [...] this encounter Medical Devices Implanted Type Area Belt Measurer Device Identifier Shelf Expiration Date Model / Serial / Lot Shunt Tube Glaucoma Ahmed Fp7 - [id number] - [id number] Implanted:Qty: 1 on 11/17/2022 by Carolina Ramirez MD at OR [facility] Right: Eye [employer] [id number] 09/17/2024 FP7 / [id number] / [id number] Graft [place] Cornea Split - [id number] Implanted:Qty: 1 on 11/17/2022 by Carolina Ramirez MD at OR [facility] Right: Eye [employer] 09/11/2024 O-HH1 / [id number] / [id number] documented as of this encounter Procedures Procedure Name Priority Date/Time Associated Diagnosis Comments URINALYSIS WITH MICROSCOPIC EXAM Routine 08/02/2023 10:49 AM EDT Stage 3b chronic kidney disease (HCC) BASIC METABOLIC PANEL Routine 08/02/2023 10:44 AM EDT Stage 3b chronic kidney disease (HCC) documented in this encounter Results * (ABNORMAL) URINALYSIS WITH MICROSCOPIC EXAM (08/02/2023 10:49 AM EDT) Color, Urine Yellow Colorless, Light Yellow, Yellow, Dark Yellow 08/02/2023 11:09 AM EDT LABORATORY [facility] 56-02 Clarity, Urine Clear Clear 08/02/2023 11:09 AM EDT LABORATORY [facility] 56-02 Glucose, Urine Negative Negative mg/dL 08/02/2023 11:09 AM EDT LABORATORY [facility] 56-02 Bilirubin, Urine Negative Negative 08/02/2023 11:09 AM EDT LABORATORY [facility] 56-02 Ketone, Urine Negative Negative mg/dL 08/02/2023 11:09 AM EDT LABORATORY BALM 56-02 Specific Kimberly, Urine 1.010 1.003 - 1.030 08/02/2023 11:09 AM EDT LABORATORY BALM 56-02 Blood, Urine Negative Negative 08/02/2023 11:09 AM EDT [place] [address] pH, Urine 5.5 5.0 - 7.5 Units 08/02/2023 11:09 AM EDT [place] [address] Protein, Urine Negative Negative mg/dL 08/02/2023 11:09 AM EDT [place] [address] Urobilinogen, Urine 0.2 0.2, 1.0 mg/dL 08/02/2023 11:09 AM EDT [address] Nitrite, Urine Positive(A) Negative 08/02/2023 11:09 AM EDT [address] Esterase, Urine Small(A) Negative 08/02/2023 11:09 AM EDT [address] RBC, Urine 0-2 0 - 2 /HPF 08/02/2023 11:09 AM EDT [place] [address] WBC, Urine 50+(A) 0 - 2 /HPF 08/02/2023 11:09 AM EDT [address] Bacteria, Urine >200(A) 0 - 25 /HPF 08/02/2023 11:09 AM EDT [place] [address] Urine Urine specimen / Unknown Non-blood Collection / Unknown 08/02/2023 10:49 AM EDT 08/02/2023 10:49 AM EDT Jennifer Augustine PA-C LAB URINE ORD ERABLES [facility] [address] [place], [place] [id number] * (ABNORMAL) BASIC METABOLIC PANEL (08/02/2023 10:44 AM EDT) BUN 42(H) 6 - 20 mg/dL 08/02/2023 12:38 PM EDT [place] [address] Creatinine 1.5(H) 0.5 - 1.0 mg/dL 08/02/2023 12:38 PM EDT [place] [address] Estimated Glomerular Filtration Rate 36(L) >=60 mL/min 08/02/2023 12:38 PM EDT [place] [address] Comment:eGFR is calculated b ased on the CKD-EPI 2020 equation Sodium 141 135 - 146 mmol/L 08/02/2023 12:38 PM EDT [facility] 56- Potassium 5.2(H) 3.5 - 5.1 mmol/L 08/02/2023 12:38 PM EDT [facility] 56- Chloride 105 98 - 107 mmol/L 08/02/2023 12:38 [address]T [address] CO2 24 22 - 32 mmol/L 08/02/2023 12:38 PM EDT [address] Anion Gap 12 7 - 15 mmol/L 08/02/2023 12:38 PM [address]T [address] Glucose 119 70 - 120 mg/dL 08/02/2023 12:38 [address]T [address] Calcium 9.9 8.4 - 10.2 mg/dL 08/02/2023 12:38 PM EDT [facility] 56 Blood Venous blood specimen / Unknown Venipuncture / Unknown 08/02/2023 10:44 AM EDT 08/02/2023 10:44 AM EDT Jennifer Augustine PA-C LAB BLOOD ORD ERABLES [place] [address] [place] [address] documented in this encounter Visit Diagnoses Diagnosis Stage 3b chronic kidney disease (HCC) GERD (gastroesophageal reflux disease) Esophageal reflux documented in this encounter Advance Directives Latest Code Status on File Code Status Date Activated Date Inactivated Comments Full Code 07/28/2014 3:21 PM 07/31/2014 4:03 PM This order reflects the patients wishes and were consensually agreed upon. Care Teams Inspector Balance Bridge Relationship Specialty Start Date End Date Ghislaine Hernandez DO [address] [place] [address] PCP - General Family Medicine 07/09/14 documented as of this encounter
--- OUTSIDE RECORDS SUMMARY | 2023-08-06 09:59 | External Medical Summary | Summary of Care ---
Author Name Unknown Organization [facility] Address [address] [place] [address] Phone [phone] Care Team Providers Care Application Counselor Name Role Phone Ghislaine Hernandez Primary Care Provider [phone] Reason for Visit * Reason Onset Date Comments Appointment 07/20/2023 Return for 3-4 m [facility] OCT nerve, [place] visual field 24-2. Dr Camejo Encounter Details Date Type Department Care Team (Late st Contact Info) Description 07/20/2023 Telephone [facility] [address] [place], [place] [id number] Carolina Ramirez MD [address] [place] [address] Appointment (Return for 3-4 months OCT ner... Allergies Active Allergy Reactions Criticality Noted Date [...] hemoglobin A1c goal of less than 7.0% ([facility]) Use to test blood [...] mRNA, LNP-s, No Pre serve, 2-Dose Series (Comunitae) 09/03/2020,08/13/2020 Pneumococcal Conjugate Vacc, 13 Valent (Prevnar) [...] encounter Miscellaneous Notes * Telephone Encounter - Kelsey De Anda OSA - 07/20/2023 1:34 PM EDT Return for 3-4 months OCT nerve, [place] visual field 24-2. Dr Camejo Message to daren bradley nichole Lou ann pacocha 07-20-23 documented in this encounter Plan of Treatment Upcoming Encounters Date Type Department Care Team (Latest Contact Info) Description 4 2:30 PM EDT Office Visit Ophthalmology, [facility] [address] [place] [address] Nitish Crooks, [address] [place] [address] 4 9:30 AM EDT Office Visit NephrologyLuis [address] [place] [address] Jennifer Augustine PA-C [address] [place] [address] 4 11:15 AM EDT Hospital Encounter ENDO [facility], Endoscopy Room [facility] [address] [place] [address] Brent Alcantara MD [address] [place] [address] 4 11:15 AM EDT - 4 11:45 AM EDT Surgery ENDO [facility], Endoscopy Room [facility] [address] [place] [address] Brent Alcantara MD [address] [place] [address] ESOPHAGOGASTRODUODENOSCOPY (EGD), FLEXIBLE, TRANSORAL, DIAGNOSTIC 4 9:00 AM EDT Imaging Radiology [address] [place] [address] 4 1:00 PM EDT Office Visit [facility] [address] [place] [address] Ghislaine Hernandez, DO [address] [place] [address] 5 1:00 PM EDT Office Visit [facility] [address] [place] [address] Ghislaine Hernandez, DO [address] [place] [address] Scheduled Procedures Name Priority Associated Diagnoses Date/Ti [...] 03/30/2023, Additional history exists HbA1c 01/04/2024 07/04/2023, 100 12/2022, 07/11/2022, Additional history exists B-12 03/30/2024 03/30/2023, 0 12/2022, 04/28/2022, Additional history exists CKD HGB USE SMARTSET 79539 04/06/202404/06, 04/06/2023, 03/30/2023, Additional history exists Fecal Occult Blood Test 04/11/2024 04/11/2023, 10/05 DXA Scan 04/30/2024 04/30/2017 CKD PHOS USE SMARTSET 32334 07/03/202406/08, 07/11/2022, 06/14/2021, Additional history exists Diabetic [...] this encounter Medical Devices Implanted Type Area Carpet Renovator Device Identifier Shelf Expiration Date Model / Serial / Lot Shunt Tube Glaucoma [facility] Fp7 - [id number] - [id number] Implanted:Qty: 1 on 11/17/2022 by Carolina Ramirez MD at OR [facility] Right: Eye [employer] [id number] 09/17/2024 FP7 / [id number] / [id number] Graft [place] Cornea Split - [id number] Implanted:Qty: 1 on 11/17/2022 by Carolina Ramriez MD at OR [facility] Right: Eye [employer] 09/11/2024 O-HH1 / [id number] / [id number] documented as of this encounter Advance Directives Latest Code Status on File Code Status Date Activated Date Inactivated Comments Full Code 07/28/2014 3:21 PM 07/31/2014 4:03 PM This order reflects the patients wishes and were consensually agreed upon. Care Teams Application Counselor Relationship Specialty Start Date End Date Ghislaine Hernandez DO [address] [place] [address] PCP - General Family Medicine 07/09/14 documented as of this encounter
--- OUTSIDE RECORDS SUMMARY | 2023-08-06 10:00 | External Medical Summary | Summary of Care ---
Author Name Unknown Organization [facility] Address [address] [place] [address] Phone [phone] Care Team Providers Care Special Certificate Dictator Name Role Phone Ghislaine Hernandez DO Primary Care Provider [phone] Reason for Referral * Evaluate & Treat - Unlimited Visits (Within 30 days (routine)) - Authorized Specialty Diagnoses / Procedures Referred By Tristian hammonds Referred To Contact Nephrology Diagnoses HTN, goal below 130/80 Chronic kidney disease, stage 3b (HCC) Ghislaine Hernandez DO [address] [place] [address] Referral ID Status Reason Start Date Expiration Date Visits Requested Visits Authorized [id number] Authorized Specialty Services Required 07/16/[phone] Question Answer Referral Priority Within 30 days (routine) Where should this appointment be scheduled? [facility] What condition is this patient being seen for? Hypertension Reason for Visit * Reason Onset Date Comments Test Results 07/13/2023 Encounter Details Date Type Department Care Team (Late st Contact Info) Description 07/13/2023 Telephone Family Practice [facility] [address] [place] [address] Ghislaine Hernandez DO [address] [place] [address] Test Results Allergies Active Allergy Reactions Criticality Noted Date Comments Bee Venom Edema airway,Edema Other High 01/15/2014 Eye swelled shut Nitrofurantoin 11/08/2018 vomiting Sulfa Antibiotics Hives,Other (Please comment) 01/15/2014 Boil/Acne like sores on abdomen documented as of this encounter (statuses as of 07/16/2023) Medications Medication Sig Dispensed Refills Start Date End Date Status Aspirin 81 MG Tablet Take 1 Tablet by mouth in the morning. 90 Tab 0 09/04/2017 Active cholecalciferol, VIT D3, (VITAMIN D3) 1000 UNITS Tablet Take 1 Tablet by mouth in the morning. 0 04/17/2019 Active Red Mapache Ultra Blue In Vitro Strip (Glucose Blood)Indications:Ty [...] before bedtime. 30 mL 3 06/29/2023 Active acetaZOLAMIDE ER 500 MG Oral Capsule Extended Release 12 Hour (Diamox Sequels) Take 1 Capsule by mouth in the morning and 1 Capsule before bedtime. 60 Capsule 1 06/29/2023 Active Additional Information Patient taking differently:500 mg Oral BID (.AM/PM),Pt takes only one tablet daily due to stomach issues, Reported on 07/04/2023 Famotidine 20 MG Oral Tablet (Pepcid)Indications: Gastroesophageal [...] Frequency Start Date End Date Status Faricimab-svoa (Vabyo) intravitreal inj 6 mgIndications:Neovascu lar glaucoma of [...] as of this encounter (statuses as of 07/16/2023) Active Problems Problem Noted Date Diagnosed Date [...] as of this encounter (statuses as of 07/16/2023) Resolved Problems Problem Noted Date Diagnosed Date [...] as of this encounter (statuses as of 07/16/2023) Immunizations Name Administration Dates Next Due COVID-19 [...] as of this encounter Miscellaneous Notes * Addendum Note - Sita Sewell MED RICKIE - 07/16/2023 10:55 AM EDTAddended by: SITA SEWELL on: 07/16/2023 10:55 AM Modules accepted: Orders * Telephone Encounter - Sita Sewell MED ASSIST - 07/16/2023 10:54 AM EDT Referral placed. * Telephone Encounter - Louise Waller OSA - 07/16/2023 8:[address] referral and send back to scheduling * Telephone Encounter - Adia Spears RN - 07/13/2023 4:49 PM EDT Called pt and gave message. Please assist with scheduling with nephrology * Telephone Encounter - Ghislaine Hernandez DO - 07/13/2023 3:58 PM EDT Please call patient A1c is 7.3, so slightly increased Kidney number has increased too (Cr now 1.8) Rec f/u w/nephrology - Oct note recommended 3 month f/u Please schedule documented in this encounter Plan of Treatment Upcoming Encounters Date Type Department Care Team (Latest Contact Info) Description 4 1:15 PM EDT [facility] [address] [place] [address] Carolina Ramirez MD [address] [facility] [place] [address] 4 2:30 PM EDT Office Visit Ophthalmology, [facility] [address] [facility] [place] [address] Nitish Crooks DO [address] [place] [address] 4 11:15 AM EDT Hospital Encounter ENDO [facility], Endoscopy Room [facility] [address] [place] [phone] Brent Alcantara MD [address] [place] [address] 4 11:15 AM EDT - 4 11:45 AM EDT Surgery ENDO [facility], Endoscopy Room [facility] [address] [place] [address] Brent Alcantara MD [address] [place] [address] ESOPHAGOGASTRODUODENOSCOPY (EGD), FLEXIBLE, TRANSORAL, DIAGNOSTIC 4 9:00 AM EDT Imaging Radiology [address] [place] [address] 4 1:00 PM EDT Office Visit [facility] [address] [place] [address] Ghislaine Hernandez, DO [address] [place] [address] 5 1:00 PM EDT Office Visit [facility] [address] [place] [address] Ghislaine Hernandez, DO [address] [place] [address] Scheduled Procedures Name Priority Associated Diagnoses Date/Ti me ESOPHAGOGASTRODUODENOSCOPY ( EGD), FLEXIBLE, TRANSORAL, DIAGNOSTIC GERD (gastroesophageal reflux disease) 09/04/2023 11:15 AM EDT COLONOSCOPY FLEXIBLE PROXIMA L DIAGNOSTIC Recall Encounter for screening colonoscopy Scheduled Referrals Name Type Priority Associated Diagnoses Orde r Schedule NEPHROLOGY REFERRAL OP Referral Within 30 days (routine) HTN, goal below 130/80 Chronic kidney disease, stage 3b (HCC) Ordered: 07/16/2023 Health Maintenance Due Date Last Done Comments [...] Additional history exists CKD HGB USE SMARTSET 64789 04/06/202404/06, 04/06/2023, 03/30/2023, Additional history exists Fecal Occult Blood Test 04/11/2024 04/11/2023, 10/05 DXA Scan 04/30/2024 04/30/2017 CKD PHOS USE SMARTSET 11509 07/03/202406/08, 07/11/2022, 06/14/2021, Additional history exists Diabetic [...] this encounter Medical Devices Implanted Type Area Farm Equipment Service Technician Device Identifier Shelf Expiration Date Model / Serial / Lot Shunt Tube [facility] [id number] - [id number] Implanted:Qty: 1 on 11/17/2022 by Carolina Ramirez MD at OR [facility] Right: Eye [employer] [id number] 09/17/2024 7 / [id number] / [id number] Graft [place] Cornea Split - [id number] Implanted:Qty: 1 on 11/17/2022 by Carolina Ramirez MD at OR [facility] Right: Eye [employer] 09/11/2024 O-HH1 / [id number] / [id number] documented as of this encounter Visit Diagnoses Diagnosis Chronic kidney disease, stage 3b (HCC)- Primary HTN, goal below 130/80 Unspecified essential hypertension GERD (gastroesophageal reflux disease) Esophageal reflux documented in this encounter Advance Directives Latest Code Status on File Code Status Date Activated Date Inactivated Comments Full Code 07/28/2014 3:21 PM 07/31/2014 4:03 PM This order reflects the patients wishes and were consensually agreed upon. Care Teams Special Certificate Dictator Relationship Specialty Start Date End Date Ghislaine Hernandez DO [address] [place] [address] PCP - General Family Medicine 07/09/14 documented as of this encounter
--- OUTSIDE RECORDS SUMMARY | 2023-08-06 10:00 | External Medical Summary | Summary of Care ---
Author Name Unknown Organization [facility] Address [address] [place] [address] Phone [phone] Care Team Providers Care Insurance Executive Name Role Phone Ghislaine Hernandez DO Primary Care Provider [phone] Reason for Visit * Reason Onset Date Comments Test Results 07/13/2023 Encounter Details Date Type Department Care Team (Late st Contact Info) Description 07/13/2023 Telephone Family Practice [facility] [address] [place] [address] Ghislaine Hernandez, [address] [place] [address] Test Results Allergies Active Allergy Reactions Criticality [...] hemoglobin A1c goal of less than 7.0% ([facility]) Use to test blood sugar once daily [...] encounter Miscellaneous Notes * Telephone Encounter - Louise Waller OSA [...] Description 4 1:15 PM EDT Office Visit [facility] Eye [facility] [address] [place] [address] Carolina Ramirez MD [address] [facility] [place] [address] 4 2:30 PM EDT Office Visit Ophthalmology, [facility] [address] [place] [address] Nitish Crooks, DO [address] [place] [address] 4 11:15 AM EDT Hospital Encounter ENDO [facility], Endoscopy Room [facility] [address] [place] [phone] Brent Alcantara MD [address] [place] [address] 4 11:15 AM EDT - 4 11:45 AM EDT Surgery ENDO [facility], Endoscopy Room [facility] [address] [place] [phone] Brent Alcantara MD [address] [place] [address] ESOPHAGOGASTRODUODENOSCOPY (EGD), FLEXIBLE, TRANSORAL, DIAGNOSTIC 4 9:00 AM EDT Imaging Radiology [facility] [address] [place] [address] 4 1:00 PM EDT Office Visit Family Practice [facility] [address] [place] [address] Ghislaine Hernandez, DO [address] [place] [address] 1:00 PM EDT Office Visit [facility] [address] [place] [address] Ghislaine Hernandez DO [address] [place] [address] Scheduled Procedures Name Priority Associated Diagnoses Date/Ti [...] Additional history exists CKD HGB USE SMARTSET 69971 04/06/202404/06, 04/06/2023, 03/30/2023, Additional history exists Fecal Occult Blood Test 04/11/2024 04/11/2023, 10/05 DXA Scan 04/30/2024 04/30/2017 CKD PHOS USE SMARTSET 33781 07/03/202406/082024, 07/11/2022, 06/14/2021, Additional history exists Diabetic Foot [...] this encounter Medical Devices Implanted Type Area Electrician Station Assistant Device Identifier Shelf Expiration Date Model / Serial / Lot Shunt Tube Glaucoma Ahmed Fp7 - [id number] - [id number] Implanted:Qty: 1 on 11/17/2022 by Carolina Ramirez MD at OR [facility] Right: Eye [employer] [id number] 09/17/2024 TRACY / [id number] / [id number] Graft [place] Cornea Split - [id number] Implanted:Qty: 1 on 11/17/2022 by Carolina Ramirez MD at OR [facility] Right: Eye [employer] 09/11/2024 O-HH1 / [id number] / [id number] documented as of this encounter Advance Directives Latest Code Status on File Code Status Date Activated Date Inactivated Comments Full Code 07/28/2014 3:21 PM 07/31/2014 4:03 PM This order reflects the patients wishes and were consensually agreed upon. Care Teams Insurance Executive Relationship Specialty Start Date End Date Ghislaine Hernandez DO [address] [place] [address] PCP - General Family Medicine 07/09/14 documented as of this encounter
--- OUTSIDE RECORDS SUMMARY | 2023-08-06 10:00 | External Medical Summary | Summary of Care ---
Author Name Unknown Organization [facility] Address [address] [place] [address] Phone [phone] Care Team Providers Care Tube Sorter Name Role Phone Ghislaine Hernandez DO Primary Care Provider [phone] Reason for Visit * Reason Onset Date Comments Test Results 07/13/2023 Encounter Details Date Type Department Care Team (Late st Contact Info) Description 07/13/2023 Telephone Family Practice [facility] [address] [place] [address] Ghislaine Hernandez, [address] [place] [address] Test Results Allergies Active Allergy Reactions Criticality Noted Date Comments Bee Venom Edema airway,Edema Other High 01/15/2014 Eye swelled shut Nitrofurantoin 11/08/2018 vomiting Sulfa Antibiotics Hives,Other (Please comment) 01/15/2014 Boil/Acne like sores on abdomen documented as of this encounter (statuses as of 07/13/2023) Medications Medication Sig Dispensed Refills Start Date [...] A1c goal of less than 7.0% (FORMERLY [facility]) Use to test blood sugar once daily [...] as of this encounter (statuses as of 07/13/2023) Active Problems Problem Noted Date Diagnosed Date [...] as of this encounter (statuses as of 07/13/2023) Resolved Problems Problem Noted Date Diagnosed Date [...] as of this encounter (statuses as of 07/13/2023) Immunizations Name Administration Dates Next Due COVID-19 [...] encounter Miscellaneous Notes * Telephone Encounter - Adia Spears RN [...] Description 4 1:15 PM EDT Office Visit [place] [address] [place] [id number] Carolina Ramirez MD [place] [address] 4 2:30 PM EDT Office Visit Ophthalmology, [facility] [address] [place] [address] Nitish Crooks, DO [address] [place] [address] 4 11:15 AM EDT Hospital Encounter ENDO [facility], Endoscopy Room [facility] [address] [place] [phone] Brent Alcantara MD [address] [place] [address] 4 11:15 AM EDT - 4 11:45 AM EDT Surgery ENDO [facility], Endoscopy Room [facility] [address] [place] [address] Brent Alcantara MD [address] [place] [address] ESOPHAGOGASTRODUODENOSCOPY (EGD), FLEXIBLE, TRANSORAL, DIAGNOSTIC 4 9:00 AM EDT Imaging Radiology [address] [place] [address] 4 1:00 PM EDT Office Visit Family [facility] [address] [place] [address] Ghislaine Hernandez, DO [address] [place] [address] 5 1:00 PM EDT Office Visit [facility] [address] [place] [address] Ghislaine Hernandez, DO [address] [place] [address] Scheduled Procedures Name Priority Associated Diagnoses Date/Ti [...] Additional history exists CKD HGB USE SMARTSET 07805 04/06/202404/06, 04/06/2023, 03/30/2023, Additional history exists Fecal Occult Blood Test 04/11/2024 04/11/2023, 10/05 DXA Scan 04/30/2024 04/30/2017 CKD PHOS USE SMARTSET 44163 07/03/202406/08, 07/11/2022, 06/14/2021, Additional history exists Diabetic [...] this encounter Medical Devices Implanted Type Area Manager Relationship Device Identifier Shelf Expiration Date Model / Serial / Lot Shunt Tube Glaucoma Ahmed Fp7 - [id number] - [id number] Implanted:Qty: 1 on 11/17/2022 by Carolina Ramirez MD at OR [facility] Right: Eye [employer] [id number] 09/17/2024 TRACY / [id number] / [id number] Graft [place] Cornea Split - [id number] Implanted:Qty: 1 on 11/17/2022 by Carolina Ramirez MD at OR [facility] Right: Eye [employer] 09/11/2024 O-HH1 / [id number] / [id number] documented as of this encounter Advance Directives Latest Code Status on File Code Status Date Activated Date Inactivated Comments Full Code 07/28/2014 3:21 PM 07/31/2014 4:03 PM This order reflects the patients wishes and were consensually agreed upon. Care Teams Tube Sorter Relationship Specialty Start Date End Date Ghislaine Hernandez DO [address] [place] [address] PCP - General Family Medicine 07/09/14 documented as of this encounter
--- OUTSIDE RECORDS SUMMARY | 2023-08-06 10:00 | External Medical Summary | Summary of Care ---
Author Name Unknown Organization [facility] Address [address] [place] [address] Phone [phone] Care Team Providers Care Motor Vehicle Clerk Name Role Phone Ghislaine Navarro DO Primary Care Provider [phone] Reason for Visit * Reason Comments eRx-Medication Refill Encounter Details Date Type Department Care Team (Late st Contact Info) Description 07/12/2023 Refill Family Practice [facility] [address] [facility] [place] [address] Ghislaine Navarro DO [address] [place] [address] HTN, goal below 130/80 Allergies Active Allergy Reactions Criticality Noted Date [...] mouth in the morning. 90 Tab 0 8 Active cholecalciferol, VIT D3, (VITAMIN D3) 1000 UNITS Tablet Take 1 Tablet by mouth in the morning. 0 0 Active OneTouch Ultra Blue In Vitro Strip (Glucose Blood)Indications: Type 2 diabetes mellitus with hemoglobin A1c goal of less than 7.0% ([facility]) Use to test blood sugar once daily 100 Strip 11 1 Active Zoster Vac Recomb Adjuvanted 50 MCG/0.5ML Intramuscular Suspension Reconstituted (Shingrix)Indicati ons:Need for vaccination for zoster Inject 0.5 mL into a large muscle now and repeat dose in 60 to 180 days 1 Each 1 3 Active Atenolol 25 MG Oral Tablet (Tenormin)Indicati ons:HTN, goal below 130/80 Take 1 tablet by mouth once daily 90 Tablet 3 3 Active amLODIPine Besylate 10 MG Oral Tablet (Norvasc)Indicatio ns:HTN, goal below 130/80 Take 1 tablet by mouth once daily 90 Tablet 3 3 Active metFORMIN HCl ER 500 MG Oral Tablet Extended Release 24 Hour (Glucophage XR)Indications:Typ e 2 diabetes mellitus with hemoglobin A1c goal of less than 7.0% (HCC) Take 1 tablet by mouth once daily 90 Tablet 3 3 Active glipiZIDE 5 MG Oral Tablet (Glucotrol) Take 1/2 (one-half) tablet by mouth once daily 45 Tablet 1 3 Active Folic Acid 1 MG Oral TabletIndications: Folic acid deficiency Take 1 Tablet by mouth in the morning. 30 Tablet 11 3 Active Atorvastatin Calcium 40 MG Oral Tablet (Lipitor)Indicatio ns:Dyslipidemia, goal LDL below 100 Take 1 tablet by mouth once daily 90 Tablet 1 3 Active Dorzolamide HCl 2 % Ophthalmic Solution (Trusopt Ocumeter Plus) Instill 1 Drop into both eyes in the morning and 1 Drop in the evening. 30 mL 3 4 Active Rocklatan 0.02-0.005 % Ophthalmic Solution (Netarsudil-Latano prost) Instill 1 Drop into both eyes every evening. 7.5 mL 3 4 Active Pantoprazole Sodium 40 MG Oral Tablet Delayed Release (Protonix)Indicati ons:Gastroesophage al reflux disease with esophagitis, unspecified whether hemorrhage Take 1 Tablet by mouth in the morning. 30 Tablet 5 4 Active Brimonidine Tartrate-Timolol 0.2-0.5 % Ophthalmic Solution (Combigan) Instill 1 Drop into both eyes in the morning and 1 Drop before bedtime. 30 mL 3 4 Active acetaZOLAMIDE ER 500 MG Oral Capsule Extended Release 12 Hour (Diamox Sequels) Take 1 Capsule by mouth in the morning and 1 Capsule before bedtime. 60 Capsule 1 4 Active Additional Information Patient taking differently:500 mg Oral BID (.AM/PM),Pt takes only one tablet daily due to stomach issues, Reported on 07/04/2023 Famotidine 20 MG Oral Tablet (Pepcid)Indication s:Gastroesophageal reflux disease with esophagitis, unspecified whether hemorrhage Take 1 Tablet by mouth in the morning and 1 Tablet before bedtime. 180 Tablet 3 4 Active Lisinopril 5 MG Oral Tablet (Prinivil)Indicati ons:HTN, goal below 130/80 Take 1 tablet by mouth once daily 90 Tablet 3 4 Active Lisinopril 5 MG Oral Tablet (Prinivil)Indicati ons:HTN, goal below 130/80 Take 1 tablet by mouth once daily 90 Tablet 1 3 07/13/19 24 Discontinued Hospital, Clinic, or Other Facility Administered [...] encounter Miscellaneous Notes * Telephone Encounter - Eben Hall [facility] - 07/13/2023 1:42 PM EDTSigned Prescriptions: Disp Refills Lisinopril 5 MG Oral Tablet (Prinivil) 90 Tab*3 Sig: Take 1 tablet by mouth once dailyAuthorizing Provider: DASHAWN NAVARRO User: EBEN HALL---- documented in this encounter Plan of Treatment Upcoming Encounters Date Type Department Care Team (Latest Contact Info) Description 4 1:15 PM EDT Office Visit [facility] Eye [facility] [address] [place] [address] Carolina Ramirez MD [address] [facility] [place] [address] 4 2:30 PM EDT Office Visit Ophthalmology, [facility] [address] [place] [address] Nitish Crooks, DO [address] [place] [address] 4 11:15 AM EDT Hospital Encounter ENDO [facility], Endoscopy Room [facility] [address] [place] [address] Brent Alcantara MD [address] [place] [address] 4 11:15 AM EDT - 4 11:45 AM EDT Surgery ENDO [facility], Endoscopy Room [facility] [address] [place] [phone] Brent Alcantara MD [address] [place] [address] ESOPHAGOGASTRODUODENOSCOPY (EGD), FLEXIBLE, TRANSORAL, DIAGNOSTIC 4 9:00 AM EDT Imaging Radiology [facility] [address] [facility] [address] [place] [address] 4 1:00 PM EDT Office Visit Family Practice [facility] [address] [place] [address] Ghislaine Navarro, DO [address] [place] [address] 1:00 PM EDT Office Visit Family Practice [facility] [address] [place] [address] Ghislaine aNvarro DO [address] [place] [address] Scheduled Procedures Name Priority Associated Diagnoses Date/Ti [...] Additional history exists CKD HGB USE SMARTSET 20269 04/06/202404/06, 04/06/2023, 03/30/2023, Additional history exists Fecal Occult Blood Test 04/11/2024 04/11/2023, 10/05 DXA Scan 04/30/2024 04/30/2017 CKD PHOS USE SMARTSET 52699 07/03/202406/08, 07/11/2022, 06/14/2021, Additional history exists Diabetic [...] this encounter Medical Devices Implanted Type Area Still Tender Device Identifier Shelf Expiration Date Model / Serial / Lot Shunt Tube [facility] - [id number] - [id number] Implanted:Qty: 1 on 11/17/2022 by Carolina Ramirez MD at OR [facility] Right: Eye [employer] [id number] 09/17/2024 FP7 / [id number] / [id number] Graft [place] Cornea Split - [id number] Implanted:Qty: 1 on 11/17/2022 by Carolina Ramirez MD at OR [facility] Right: Eye [employer] 09/11/2024 O-HH1 / [id number] / [id number] documented as of this encounter Visit Diagnoses Diagnosis HTN, goal below 130/80 Unspecified essential hypertension GERD (gastroesophageal reflux disease) Esophageal reflux documented in this encounter Advance Directives Latest Code Status on File Code Status Date Activated Date Inactivated Comments Full Code 07/28/2014 3:21 PM 07/31/2014 4:03 PM This order reflects the patients wishes and were consensually agreed upon. Care Teams Motor Vehicle Clerk Relationship Specialty Start Date End Date Ghislaine Navarro DO [address] [place] [address] PCP - General Family Medicine 07/09/14 documented as of this encounter
--- OUTSIDE RECORDS SUMMARY | 2023-08-06 10:00 | External Medical Summary | Summary of Care ---
Author Name Unknown Organization [facility] Address [address] [place] [address] Phone [phone] Care Team Providers Care Aerospace Engineer Name Role Phone Ghislaine Hernandez DO Primary Care Provider [phone] Reason for Referral * Evaluate & Treat - Unlimited Visits (Within 30 days (routine)) - Authorized Specialty Diagnoses / Procedures Referred By Tristian hammonds Referred To Contact Nephrology Diagnoses HTN, goal below 130/80 Chronic kidney disease, stage 3b (HCC) Ghislaine Hernandez DO [address] [place] [address] Referral ID Status Reason Start Date Expiration Date Visits Requested Visits Authorized [id number] Authorized Specialty Services Required 07/16/2023 999 999 Question Answer Referral Priority Within 30 days (routine) Where should this appointment be scheduled? [facility] What condition is this patient being seen for? Hypertension Reason for Visit * Reason Onset Date Comments Test Results 07/13/2023 Encounter Details Date Type Department Care Team (Late st Contact Info) Description 07/13/2023 Telephone Family Practice [facility] [address] [place] [address] Ghislaine Hernandez DO [address] [place] [address] Test Results Allergies Active Allergy Reactions Criticality [...] mouth in the morning. 0 04/17/2019 Active Virtual View App Ultra Blue In Vitro Strip (Glucose Blood)Indications:Ty [...] Encounter - Louise Waller OSA - 07/16/2023 11:06 AM EDT Declined me scheduling, please call pt * Addendum Note - Sita Sewell, MED ASSIST - 07/16/2023 10:55 AM EDTAddended by: SITA [...] Description 4 1:15 PM EDT Office Visit [facility] [address] [place] [address] Carolina Ramirez MD [address] [place] [address] 4 2:30 PM EDT Office Visit Ophthalmology, [facility] [address] [place] [address] Nitish Crooks, DO [address] [place] [address] 4 11:15 AM EDT Hospital Encounter ENDO [facility], Endoscopy Room [facility] [address] [place] [phone] Brent Alcantara MD [address] [place] [address] 4 11:15 AM EDT - 4 11:45 AM EDT Surgery ENDO [facility], Endoscopy Room [facility] [address] [place] [phone] Brent Alcantara MD [address] [place] [address] ESOPHAGOGASTRODUODENOSCOPY (EGD), FLEXIBLE, TRANSORAL, DIAGNOSTIC 4 9:00 AM EDT Imaging Radiology [facility]st [facility] [address] [place] [address] 4 1:00 PM EDT Office Visit [facility] [address] [place] [address] Ghislaine Hernandez, DO [address] [place] [address] 5 1:00 PM EDT Office Visit [facility] [address] [place] [address] Ghislaine Hernandez, DO [address] [place] [address] Scheduled Procedures Name Priority Associated Diagnoses Date/Ti [...] Additional history exists CKD HGB USE SMARTSET 16688 04/06/202404/06, 04/06/2023, 03/30/2023, Additional history exists Fecal Occult Blood Test 04/11/2024 04/11/2023, 10/05 DXA Scan 04/30/2024 04/30/2017 CKD PHOS USE SMARTSET 79335 07/03/202406/08, 07/11/2022, 06/14/2021, Additional history exists Diabetic Foot Exam 07/03/2024 07/04/2023, 0 06/28/2022, 06/14/2021, Additional history exists Albumin/Creatinine Ratio 07/05/20242 024, 07/11/2022, 01/10/2022, Additional history exists DTaP,Tdap,and [...] this encounter Medical Devices Implanted Type Area Stadium Manager Device Identifier Shelf Expiration Date Model / Serial / Lot Shunt Tube Glaucoma Ahmed Fp7 - [id number] - [id number] Implanted:Qty: 1 on 11/17/2022 by Carolina Ramirez MD at OR [facility] Right: Eye [employer] [id number] 09/17/2024 MIKE7 / [id number] / [id number] Graft [place] Cornea Split - [id number] Implanted:Qty: 1 on 11/17/2022 by Carolina Ramirez MD at OR [facility] Right: Eye [employer] 09/11/2024 O-HH1 / [id number] / [id number] documented as of this encounter Visit [...] and were consensually agreed upon. Care Teams Aerospace Engineer Relationship Specialty Start Date End Date Ghislaine Hernandez DO [address] [place] [address] PCP - General Family Medicine 07/09/14 documented as of this encounter
--- OUTSIDE RECORDS SUMMARY | 2023-08-06 10:01 | External Medical Summary | Summary of Care ---
Author Name Unknown Organization [facility] Address [address] [place] [address] Phone [phone] Care Team Providers Care Phosphoric Acid Operator Name Role Phone NathanielGhislaine alcantar Amita PUGH Primary Care Provider [phone] Reason for Visit * Reason Onset Date Comments Appointment 06/05/2023 EGD Encounter Details Date Type Department Care Team (Late st Contact Info) Description 06/05/2023 Telephone Family Practice [facility] [address] [place] [address] Nan Joe PA-C [address] [place] [address] Appointment (EGD) Allergies Active Allergy Reactions Criticality Noted Date Comments Bee Venom Edema airway,Edema Other High 01/15/2014 Eye swelled shut Nitrofurantoin 11/08/2018 vomiting Sulfa Antibiotics Hives,Other (Please comment) 01/15/2014 Boil/Acne like sores on abdomen documented as of this encounter (statuses as of 06/28/2023) Medications Medication Sig Dispensed Refills Start Date End Date Status Brimonidine Tartrate-Timolol 0.2-0.5 % Ophthalmic Solution Instill 1 Drop into both eyes in the morning and 1 Drop before bedtime. 0 Active Aspirin 81 MG Tablet Take 1 Tablet by mouth in the morning. 90 Tab 0 09/04/2017 Active cholecalciferol, VIT D3, (VITAMIN D3) 1000 UNITS Tablet Take 1 Tablet by mouth in the morning. 0 04/17/2019 Active OneTouch Ultra Blue In Vitro Strip (Glucose Blood)Indications:Typ e 2 diabetes mellitus with hemoglobin A1c goal of less than 7.0% (HCC) Use to test blood sugar once daily 100 Strip 11 06/11/2020 Active Zoster Vac Recomb Adjuvanted 50 MCG/0.5ML Intramuscular Suspension Reconstituted (Shingrix)Indications :Need for vaccination for zoster Inject 0.5 mL into a large muscle now and repeat dose in 60 to 180 days 1 Each 1 06/28/2022 Active Lisinopril 5 MG Oral Tablet (Prinivil)Indications :HTN, goal below 130/80 Take 1 tablet by mouth once daily 90 Tablet 1 01/25/2023 Active TO GO acetaZOLAMIDE OR Take 500 mg by mouth. Twice a day since Sunday afternoon; prior to retial exam per Dr Harrison from [place] [address] Active Atenolol 25 MG Oral Tablet (Tenormin)Indications :HTN, goal below 130/80 Take 1 tablet by mouth once daily 90 Tablet 3 02/23/2023 Active amLODIPine Besylate 10 MG Oral Tablet (Norvasc)Indications: HTN, goal below 130/80 Take 1 tablet [...] once daily 45 Tablet 1 02/26/2023 Active Torsemide 20 MG Oral Tablet (Demadex)Indications: Bilateral lower extremity edema Take 1 Tablet by mouth in the morning. 90 Tablet 1 03/20/2023 Active Potassium Chloride ER 20 MEQ Oral Tablet Extended ReleaseIndications:Bi lateral lower extremity edema Take 1 Tablet by mouth in the morning. When taking torsemide (diuretic).. 30 Tablet 1 03/26/2023 Active Folic Acid 1 MG Oral TabletIndications:Fol ic acid deficiency Take 1 Tablet by mouth in the morning. 30 Tablet 11 04/03/2023 Active Atorvastatin Calcium 40 MG Oral Tablet (Lipitor)Indications: Dyslipidemia, goal LDL below 100 Take 1 tablet by mouth once daily 90 Tablet 1 04/04/2023 Active Dorzolamide HCl 2 % Ophthalmic Solution (Trusopt Ocumeter Plus) Instill 1 Drop into both eyes in the morning and 1 Drop in the evening. 30 mL 3 04/19/2023 Active Rocklatan 0.02-0.005 % Ophthalmic Solution (Netarsudil-Latanopro st) Instill 1 Drop into both eyes every evening. 7.5 mL 3 04/19/2023 Active acetaZOLAMIDE ER 500 MG Oral Capsule Extended Release 12 Hour (Diamox Sequels) Take 1 Capsule by mouth in the morning and 1 Capsule before bedtime. 60 Capsule 0 04/19/2023 Active Famotidine 20 MG Oral Tablet (Pepcid)Indications:G astroesophageal reflux disease with esophagitis, unspecified whether hemorrhage Take 1 Tablet by mouth in the morning and 1 Tablet before bedtime. 60 Tablet 0 06/05/2023 Active Pantoprazole Sodium 40 MG Oral Tablet Delayed Release (Protonix)Indications :Gastroesophageal reflux disease with esophagitis, unspecified whether hemorrhage Take 1 Tablet by mouth in the morning. 30 Tablet 5 06/05/2023 Active Hospital, Clinic, or Other Facility Administered [...] as of this encounter (statuses as of 06/28/2023) Active Problems Problem Noted Date Diagnosed Date [...] as of this encounter (statuses as of 06/28/2023) Resolved Problems Problem Noted Date Diagnosed Date [...] as of this encounter (statuses as of 06/28/2023) Immunizations Name Administration Dates Next Due COVID-19 [...] encounter Miscellaneous Notes * Telephone Encounter - Dilcia Sullivan OSA - 06/28/2023 3:04 PM EDT Lmm * Telephone Encounter - Louise Waller OSA - 06/05/2023 1:15 PM EST EGD Pt has DM-on metformin per pt documented in this encounter Plan of Treatment Upcoming Encounters Date Type Department Care Team (Late st Contact Info) Description 07/04/2023 2:20 PM EDT Office Visit Family [facility] [address] [place] [address] Ghislaine Hernandez, DO [address] [place] [address] 07/20/2023 1:15 PM EDT Office Visit [facility] Eye [facility] [address] [place] [address] Carolina Ramirez MD [address] [place] [address] 07/31/2023 2:30 PM EDT Office Visit Ophthalmology, [facility] [address] [place] [address] Nitish Crooks, DO [address] [place] [address] 10/01/2023 9:00 AM EDT Imaging Radiology [facility] [address] [place] [address] 01/08/2024 1:00 PM EDT Office Visit Family Practice [facility] [address] [place] [address] Ghislaine Hernandez, DO [address] [place] [address] Scheduled Procedures Name Priority Associated Diagnoses Date/Ti me COLONOSCOPY FLEXIBLE PROXIMA L DIAGNOSTIC Recall Encounter for screening colonoscopy Health Maintenance Due Date Last Done Comments Cologuard 08/16/1996 Sigmoidoscopy 08/16/1996 Zoster Vaccines (3 of 3) 01/26/2019 12/01/2018, 12/09 COVID-19 Vaccine ( season) 2022 09/03/2020, 08/13/2020 Depression Screening 06/29/2023 06/28/2022 Diabetic Foot Exam 06/29/2023 06/28/2022, 0 06/14/2021, 06/04/2020, Additional history exists Albumin/Creatinine Ratio 07/12/2023 023, 01/10/2022, 12/22/2021, Additional history exists CKD PHOS USE SMARTSET 71269 07/12/2023 04/0 07/2022, 06/14/2021, 06/04/2020, Additional history exists HbA1c 07/17/2023 01/15/2023, 04/0 07/2022, 12/21/2021, Additional history exists Mammogram 09/28/2023 09/27/2022, 09/08, 09/26/2021, Additional history exists GFR 10/06/2023 04/06/2023, 03/10, 03/20/2023, Additional history exists Diabetic Eye Exam 11/14/2023 11/13/2022, , 11/13/2022, Additional history exists B-12 03/30/2024 03/30/2023, 10/0 12/2022, 04/28/2022, Additional history exists CKD HGB USE SMARTSET 55115 04/06/202404/06, 04/06/2023, 03/30/2023, Additional history exists Fecal Occult Blood Test 04/11/2024 04/11/2023, 10/05 DXA Scan 04/30/2024 04/30/2017 DTaP,Tdap,and Td Vaccines (2 - Td or [...] this encounter Medical Devices Implanted Type Area Process Design Engineer Device Identifier Shelf Expiration Date Model / Serial / Lot Shunt Tube Glaucoma Ahmed Fp7 - [id number] - [id number] Implanted:Qty: 1 on 11/17/2022 by Carolina Ramirez MD at [facility] Right: Eye [employer] [id number] 09/17/2024 FP7 / [id number] / [id number] Graft [place] Cornea Split - [id number] Implanted:Qty: 1 on 11/17/2022 by Carolina Ramirez MD at [facility] Right: Eye [employer] 09/11/2024 HCO-HH1 / [id number] / [id number] documented as of this encounter Advance Directives Latest Code Status on File Code Status Date Activated Date Inactivated Comments Full Code 07/28/2014 3:21 PM 07/31/2014 4:03 PM This order reflects the patients wishes and were consensually agreed upon. Care Teams Phosphoric Acid Operator Relationship Specialty Start Date End Date Ghislaine Hernandez DO [address] [place] [address] PCP - General Family Medicine 07/09/14 documented as of this encounter
--- OUTSIDE RECORDS SUMMARY | 2023-08-06 10:01 | External Medical Summary | Summary of Care ---
Author Name Unknown Organization [facility] Address [address] [place] [address] Phone [phone] Care Team Providers Care Test Lead Application Testing Name Role Phone Ghislaine Hernandez Primary Care Provider [phone] Reason for Visit * Reason Onset Date Comments Medication Refill 06/28/2023 Encounter Details Date Type Department Care Team (Late st Contact Info) Description 06/28/2023 Refill [facility] [address] [place], [place] [id number] Carolina Ramirez MD [address] [place], [place] [id number] Allergies Active Allergy Reactions Criticality Noted Date Comments Bee Venom Edema airway,Edema Other High 01/15/2014 Eye swelled shut Nitrofurantoin 11/08/2018 vomiting Sulfa Antibiotics Hives,Other (Please comment) 01/15/2014 Boil/Acne like sores on abdomen documented as of this encounter (statuses as of 06/29/2023) Medications Medication Sig Dispensed Refills Start Date [...] hemoglobin A1c goal of less than 7.0% ([facility]) Use to test blood sugar once daily 100 Strip 11 06/11/2020 Active Zoster Vac Recomb Adjuvanted 50 MCG/0.5ML Intramuscular Suspension Reconstituted (Shingrix)Indicatio ns:Need for vaccination for zoster Inject 0.5 mL into a large muscle now and repeat dose in 60 to 180 days 1 Each 1 06/28/2022 Active Lisinopril 5 MG Oral Tablet (Prinivil)Leathao ns:HTN, goal below 130/80 Take 1 tablet by mouth once daily 90 Tablet 1 01/25/2023 Active TO GO acetaZOLAMIDE OR Take 500 mg by mouth. Twice a day since Sunday afternoon; prior to retial exam per Dr Harrison from [place] [address] Active Atenolol 25 MG Oral Tablet (Tenormin)Leathao ns:HTN, goal below 130/80 Take 1 tablet [...] 02/26/2023 Active Torsemide 20 MG Oral Tablet (Demadex)Indication s:Bilateral lower extremity edema Take 1 Tablet by mouth in the morning. 90 Tablet 1 03/20/2023 Active Potassium Chloride ER 20 MEQ Oral Tablet Extended ReleaseIndications: Bilateral lower extremity edema Take 1 Tablet by mouth in the morning. When taking torsemide (diuretic).. 30 Tablet 1 03/26/2023 Active Folic Acid 1 MG Oral TabletIndications:F [...] every evening. 7.5 mL 3 04/19/2023 Active Famotidine 20 MG Oral Tablet (Pepcid)Indications [...] before bedtime. 60 Capsule 1 06/29/2023 Active Brimonidine Tartrate-Timolol 0.2-0.5 % Ophthalmic Solution Instill 1 Drop into both eyes in the morning and 1 Drop before bedtime. 0 4 Discontinue d(Refill) acetaZOLAMIDE ER 500 MG Oral Capsule Extended Release 12 Hour (Diamox Sequels) Take 1 Capsule by mouth in the morning and 1 Capsule before bedtime. 60 Capsule 0 04/19/2023 4 Discontinue d(Refill) Hospital, Clinic, or Other Facility Administered Medication Ordered Dose Route Frequency Start Date End Date Status Leslie-mainor (Jyothiparvin) intravitreal inj 6 mgIndications:Neovascu lar glaucoma of [...] as of this encounter (statuses as of 06/29/2023) Active Problems Problem Noted Date Diagnosed Date [...] as of this encounter (statuses as of 06/29/2023) Resolved Problems Problem Noted Date Diagnosed Date [...] as of this encounter (statuses as of 06/29/2023) Immunizations Name Administration Dates Next Due COVID-19 mRNA, LNP-s, No Pre serve, 2-Dose Series (Abigail Stewart) 09/03/2020,08/13/2020 Pneumococcal Conjugate Vacc, 13 Valent (Prevnar) [...] encounter Miscellaneous Notes * Telephone Encounter - Bashir Alejandra, Carolina Mortensen MD - 06/29/2023 8:44 AM EDT Signed Prescriptions: Disp Refills Brimonidine Tartrate-Timolol 0.2-0.5 % Oph*30 mL 3 Sig: Instill 1 Drop into both eyes in the morning and 1 Drop before bedtime.Authorizing Provider: CAROLINA RAMIREZ acetaZOLAMIDE ER 500 MG Oral Capsule Exten*60 Cap*1 Sig: Take 1 Capsule by mouth in the m orning and 1 Capsule before bedtime.Authorizing Provider: CAROLINA RAMIREZ documented in this encounter Plan of Treatment Upcoming Encounters Date Type Department Care Team (Latest Contact Info) Description 4 2:20 PM EDT Office Visit Family Practice [facility] [address] [place] [address] Ghislaine Hernandez, DO [address] [place] [address] 4 1:15 PM EDT Office Visit [facility] Eye [facility] [address] [place] [address] Carolina Ramirez MD [address] [place] [address] 4 2:30 PM EDT Office Visit Ophthalmology, [facility] [address] [place] [address] Nitish Crooks DO [address] [place] [address] 4 11:15 AM EDT Hospital Encounter ENDO [facility], Endoscopy Room [facility] [address] [place] [phone] Brent Alcantara MD [address] [place] [address] 4 11:15 AM EDT - 4 11:45 AM EDT Surgery ENDO [facility], Endoscopy Room [facility] [address] [place] [phone] Brent Alcantara MD [address] [place] [address] ESOPHAGOGASTRODUODENOSCOPY (EGD), FLEXIBLE, TRANSORAL, DIAGNOSTIC 4 9:00 AM EDT Imaging Radiology [address] [place] [address] 4 1:00 PM EDT Office Visit Family Practice [facility] [address] [place] [address] Ghislaine Hernandez DO [address] [place] [address] Scheduled Procedures Name Priority Associated Diagnoses Date/Ti [...] Additional history exists CKD PHOS USE SMARTSET 33577 07/12/2023/0 07/2022, 06/14/2021, 06/04/2020, Additional history exists HbA1c 07/17/2023 01/15/2023, 040 07/2022, 12/21/2021, Additional history exists Mammogram 09/28/2023 09/27/2022, 09/08, 09/26/2021, Additional history exists GFR 10/06/2023 04/06/2023, 03/10, 03/20/2023, Additional history exists Diabetic Eye Exam 11/14/2023 11/13/2022, , 11/13/2022, Additional history exists B-12 03/30/2024 03/30/2023, 1012/2022, 04/28/2022, Additional history exists CKD HGB USE SMARTSET 25350 04/06/202404/06, 04/06/2023, 03/30/2023, Additional history exists Fecal [...] this encounter Medical Devices Implanted Type Area Real Estate Specialist Device Identifier Shelf Expiration Date Model / Serial / Lot Shunt Tube Glaucoma Ahmed Fp7 - [id number] - [id number] Implanted:Qty: 1 on 11/17/2022 by Carolina Ramirez MD at [facility] Right: Eye [employer] [id number] 09/17/2024 FP7 / [id number] / [id number] Graft [place] Cornea Split - [id number] Implanted:Qty: 1 on 11/17/2022 by Carolina Ramirez MD at [facility] Right: Eye [employer] 09/11/2024 O-1 / [id number] / [id number] documented as of this encounter Advance Directives Latest Code Status on File Code Status Date Activated Date Inactivated Comments Full Code 07/28/2014 3:21 PM 07/31/2014 4:03 PM This order reflects the patients wishes and were consensually agreed upon. Care Teams Test Lead Application Testing Relationship Specialty Start Date End Date Ghislaine Hernandez DO [address] [facility] [place] [address] PCP - General Family Medicine 07/09/14 documented as of this encounter
--- OUTSIDE RECORDS SUMMARY | 2023-08-06 10:01 | External Medical Summary ---
Author Name Unknown Address Unknown Organization K01:[facility] - [address] [facility] [address] Laboratory Report Ordering Provider Test Date Status MELANIE RUIZ 07/04/2023 15:02:06 Final Observation Date Value Abnormality Reference (Units ) Status HbA1C 07/04/2023 15:02:06 7.3 Above high normal 4. 0-5.6 (%) Final The use of HbA1c to monitor glycemic status is based on normal hemoglobin and HbA composition. This test should not be used in patients with abnormal hemoglobin that affects the half life of the red blood cell or the in vivo glycation rates. Glucose, estimated average 07/04/2023 15:02:06 163 Above high normal <126 (mg/dL) Serjio stevenson Performing Location [facility] [address] [facility] [address]
--- OUTSIDE RECORDS SUMMARY | 2023-08-06 10:01 | External Medical Summary | Summary of Care ---
Author Name Unknown Organization [facility] Address [address] [place] [address] Phone [phone] Care Team Providers Care Tax Advisor Name Role Phone Ghislaine Hernandez DO Primary Care Provider [phone] Reason for Visit * Reason Comments Re-Check 6 mo check, [facility] ER in early May, diagnosed with reflux, review medications Encounter Details Date Type Department Care Team (Latest Contact Info) Description 07/04/2023 2:20 PM EDT Office Visit [facility] [address] [place] [id number] Ghislaine Hernandez DO [address] [place] [place] [address] Gastroesophageal reflux disease with esophagitis, unspecified whether hemorrhage*; Type 2 diabetes mellitus with hemoglobin A1c goal of less than 7.0% ([facility]); Chronic kidney disease, stage 3b ([facility]); Risk and functional assessment; DM type 2 nursing care encounter ([facility]) Allergies Active Allergy Reactions Criticality Noted Date Comments Bee Venom Edema airway,Edema Other High 01/15/2014 Eye swelled shut Nitrofurantoin 11/08/2018 vomiting Sulfa Antibiotics Hives,Other (Please comment) 01/15/2014 Boil/Acne like sores on abdomen documented as of this encounter (statuses as of 07/04/2023) Medications Medication Sig Dispensed Refills Start Date End Date Status Aspirin 81 MG Tablet Take 1 Tablet by mouth in the morning. 90 Tab 0 09/04/2017 Active cholecalciferol, VIT D3, (VITAMIN D3) 1000 UNITS Tablet Take 1 Tablet by mouth in the morning. 0 04/17/2019 Active Dimeres Ultra Blue In Vitro Strip (Glucose Blood)Indications: [...] 06/28/2022 Active Lisinopril 5 MG Oral Tablet (Prinivil)Indicati ons:HTN, goal below 130/80 Take 1 tablet by mouth once daily 90 Tablet 1 01/25/2023 Active Atenolol 25 MG Oral Tablet (Tenormin)Indicati [...] of less than 7.0% ([facility]) Take 1 tablet by mouth once daily 90 Tablet 3 02/23/2023 Active glipiZIDE 5 MG Oral Tablet (Glucotrol) Take 1/2 (one-half) tablet by mouth once daily 45 Tablet 1 02/26/2023 Active Folic Acid 1 MG Oral TabletIndications: [...] 04/19/2023 Active Rocklatan 0.02-0.005 % Ophthalmic Solution (Netarsudil-Latano [...] before bedtime. 180 Tablet 3 07/04/2023 Active TO GO acetaZOLAMIDE OR Take 500 mg by mouth. Twice a day since Sunday afternoon; prior to retial exam per Dr Harrison from [place] 0 4 Discontinue d(Medicatio n List Clean Up) Torsemide 20 MG Oral Tablet (Demadex)Indicatio ns:Bilateral lower extremity edema Take 1 Tablet by mouth in the morning. 90 Tablet 1 03/20/2023 4 Discontinue d(End of Procedure) Potassium Chloride ER 20 MEQ Oral Tablet Extended ReleaseIndications :Bilateral lower extremity edema Take 1 Tablet by mouth in the morning. When taking torsemide (diuretic).. 30 Tablet 1 03/26/2023 4 Discontinue d(End of Procedure) Famotidine 20 MG Oral Tablet (Pepcid)Indication s:Gastroesophageal reflux disease with esophagitis, unspecified whether hemorrhage Take 1 Tablet by mouth in the morning and 1 Tablet before bedtime. 60 Tablet 0 06/05/2023 4 Discontinue d(Refill) Hospital, Clinic, or Other [...] as of this encounter (statuses as of 07/04/2023) Active Problems Problem Noted Date Diagnosed Date [...] as of this encounter (statuses as of 07/04/2023) Resolved Problems Problem Noted Date Diagnosed Date [...] as of this encounter (statuses as of 07/04/2023) Immunizations Name Administration Dates Next Due COVID-19 [...] Sign Reading Time Taken Comments Blood Pressure 114/60 07/04/2023 1:51 PM EDT Pulse 60 07/04/2023 1:51 PM EDT Temperature 36.4 C (97.5 F) 07/04/2023 1:51 PM ED T Respiratory Rate 16 07/04/2023 1:51 PM EDT Oxygen Saturation - - Inhaled Oxygen Concentration - - Weight 83.5 kg (184 lb) 07/04/2023 1:51 PM EDT Height - - Body Mass Index 34.77 03/09/2023 4:19 PM EST documented in this encounter Patient Instructions * Patient Instructions* Adia Spears RN - 07/04/2023 1:53 PM EDT Patient Instructions - Fall Prevention (This education is for all patients over 65 regardless of symptoms) Remember to take your current medications as prescribed. In order to prevent falls, you are encouraged to: Exercise Utilize assistive/adaptive devices Avoid multifocal lenses when walking Avoid hazards in home Maintain a regular toileting schedule Any questions please contact our office. Preventing Falls in the Home (This education is for all patients over 65 regardless of symptoms) As you get older, falls are more likely. Thats because your reaction time slows. Your muscles and joints may also get stiffer, making them less flexible. Illness, medications, and vision changes can also affect your balance. A fall could leave you unable to live on your own. To make your home safer, follow these tips: Floors Put nonskid pads under area rugs Remove throw rugs Replace worn floor coverings Tack carpets firmly to each step on carpeted stairs. Put nonskid strips on the edges of uncarpeted stairs Keep floors and stairs free of clutter and cords Arrange furniture so there are clear pathways Clean up any spills right away Bathrooms Install grab bars in the tub or shower Apply nonskid strips or put a nonskid rubber mat in the tub or shower Sit on a bath chair to bathe Use bathmats with nonskid backing Lighting Keep a flashlight in each room Put a nightlight along the pathway between the bedroom and the bathroom [employer] Patient Education Copyright 2008 - 2010 Isaiah except where otherwise noted Preventing Falls: Exercises to Improve Balance, Flexibility, Strength, and Staying Power (This education is for all patients over 65 regardless of symptoms) Certain types of exercises may help make you less likely to fall. Try the ones below. Or do other exercises that your healthcare provider suggests. Depending on your health, you may need to start slowly. Dont let that stop you. Even small amounts of exercise can help you. Be sure to talk to yourhealthcare provider before starting any exercise program. Improve Balance Many types of exercise can help improve balance. [place] chi and yoga are good examples. Heres another one to try. You can do it anytime and almost anywhere. Stand next to a counter or solid support. Push yourself up onto your tiptoes. Hold for 5 seconds. If you start to lose your balance, hold on to the counter. Rest and repeat 5 times. Work up to holding for 20 to 30 seconds, if you can. Increase Flexibility Being more flexible makes it easier for you to move around safely. Try exercises like the seated hamstring stretch. Sit in a chair and put one foot on a stool. Straighten your leg and reach with both hands down either side of your leg. Reach as far down your leg as you can. Hold for about 20 seconds. Go back to the starting position. Then repeat 5 times. Switch legs. Build Strength Resistance exercises help build strength. You can do them without equipment. Or you can use weights, elastic bands, or special machines. One such exercise is called the biceps curl. You can hold a 1 pound weight or even a can of soup. Do this exercise at least 3 times a week. Strive for everyday. Sit up straight in a chair. Keep your elbow close to your body and your wrist straight. Bend your arm, moving your hand up to your shoulder. Then slowly lower your arm. Repeat 5 times. Switch to the other arm. Build Your Staying Power Aerobic exercises make your heart and lungs stronger so you can keep moving longer. Walking and swimming are two of the best types of exercises you can do. Using a stationary bike is great, too. Find an aerobic exercise that you enjoy. Start slowly and build up. Even 5 minutes is helpful. Aimfor a goal of 30 minutes, at least 3 times a week. You dont have to do 30 minutes in one session. Break it up and walk a little throughout the day. More Helpful Tips Start easy. Slowly work up to doing more. Talk with your healthcare provider about the best exercises for you. Call senior centers or health clubs about exercise programs. If needed, have a family member watch you walk every so often to check your stability. Exercise with a friend. Choose an activity you both enjoy. Try exercises that you can do anytime, anywhere. Here are two examples. Have someone with you when you first try these: Practice walking by placing one foot right in front of the other. Stand up and sit down 10 times. Repeat this throughout the day. Isaiah Patient Education Copyright 2009 - 2010 Isaiah except where otherwise noted. Preventing Falls: Moving Safely Using a Cane or Walker (This education is for all patients over 65 regardless of symptoms) Keep the cane away from your feet so you dont trip. A walking aid, such as a cane or walker, can help you stay more independent and avoid falls. Remember to keep your walking aid within easy reach when youre in a chair or in bed. And learn how to use it safely so you dont injure yourself. Using a Cane If you have a stronger side, hold the cane on that side. Get your balance. Move the cane and your weaker leg forward. Support your weight on both the cane and your weaker side. Step with your stronger leg. Start again from step 1. If youre using a folding walker, be sure you know how to lock it open. Check that its locked open before each use. Using a Walker Roll the walker (or lift it, if youre using one without wheels) forward about 12 inches. Step forward with your weaker leg first. Use the walker to help keep your balance. Bring your other foot forward to the center of the walker. Start again from step 1. Helpful Tips Check with your healthcare provider about the right walking aid to use. Ask about a walker with a seat attached. Check the tips of your cane or walker to make sure they have nonskid covers. Move slowly from room to room. Dont fragoso. Sit down to get dressed. Use a chapincito pack or backpack to keep your hands free. Get help for jobs that mean climbing, even on a stepstool. Isaiah Patient Education Copyright 2008 - 2010 Isaiah except where otherwise noted. Urinary Incontinence Plan of Care Documentation: (This education is for all patients over 65 regardless of symptoms) Current medications reconciled. Patient encouraged to: Practice kegal exercises Provide education materials Use the restroom every 2 hours throughout the day Limit caffeine, alcohol, spicy foods and acidic foods Keep a bladder diary Limit fluid intake 3-4 hours before bed Lose weight Prevent constipation Take fluid pills at a time when you can get to the bathroom quickly Control sugar better if diabetic Limit fluid intake to 60 oz. per day Wear support stockings (TEDs)if you have edema Adia Spears RN 07/04/2023 Kegel Exercises Kegel exercises dont require special clothing or equipment. Theyre easy to learn and simple to do. And if you do them right, no one can tell youre doing them, so they can be done almost anywhere. Your doctor, nurse, or physical therapist can answer any questions you have and help you get started. A Weak Pelvic Floor The pelvic floor muscles may weaken due to aging, and vaginal childbirth, injury, surgery, chronic cough, or lack of exercise. If the pelvic floor is weak, your bladder and other pelvic organs may sag out of place. The urethra may also open too easily and allow urine to leak out. Kegel exercises can help you strengthen your pelvic floor muscles so they can better support the pelvic organs and control urine flow. How Kegel Exercises Are Done Try each of the Kegel exercises described below. When youre doing them, try not to move your leg, buttock, or stomach muscles. While youre urinating, try to stop the flow of urine. Start and stop it as often as you can. Contract as if you were stopping your urine stream, but do it when youre not urinating. Tighten your rectum as if trying not to pass gas. Contract your anus, but dont move your buttocks. Helpful Hints Do your Kegels as often as you can. The more you do them, the faster youll feel the results. Pick an activity you do often as a reminder. For instance, do your Kegels every time you sit down. Tighten your pelvic floor before you sneeze, get up from a chair, cough, laugh, or lift. This protects your pelvic floor from injury and can help prevent urine leakage. Try to hold each Kegel for a slow count to five. You probably wont be able to hold them for thatlong at first, but keep practicing. It will get easier as your pelvic floor gets stronger. Eventually, special weights that you place in your vagina may be recommended to help make your Kegels even more effective. Isaiah Patient Education Copyright 2008 - 2010 Isaiah except where otherwise noted. Here are some helpful tips for your urinary incontinence: (This education is for all patients over 65 regardless of symptoms) Practice Kegel exercises Use the restroom every 2 hours throughout the day Limit caffeine, alcohol, spicy foods, and acidic foods Keep a bladder diary Limit fluid intake 3-4 hours before bed Lose weight Prevent constipation Take fluid pills at a time when can get to the bathroom quickly Control sugar better if diabetic Limit fluid intake to 60 oz. per day Any questions, please feel free to contact our office. Diabetes: Keeping Feet Healthy Inspect your feet every day for signs of a problem. Diabetes can damage nerves in your feet and cause neuropathy. This condition makes it hard for you to feel injuries or sore spots. Diabetes can also change blood flow, making it harder for small problems, like a blister, to heal properly. In fact, minor injuries can quickly become serious infections that send you to the hospital. Practice self-care to protect your feet and keep them healthy. Take Special Care Inspect your feet daily for problems such as redness, blisters, cracks, dry skin, or numbness. Use a mirror to see the bottoms of your feet. Or, ask for help. Manage your diabetes. Monitor and control your blood sugar. Take all your medications as prescribed. Avoid walking barefoot, even indoors. Wash your feet with warm water and mild soap. Dry well, especially between toes. Dont treat corns or calluses yourself. Talk to your doctor or machine packer (a doctor who specializes in foot care) if you need assistance trimming your toenails. Use moisturizing cream or lotion if you have dry skin, but dont use it between toes. Dont use heating pads on your feet. If you have neuropathy, you could get a burn and not feel it. Stop smoking. Smoking restricts blood flow and can make it harder for wounds to heal. Have Regular Checkups Foot problems can develop quickly. So be sure to follow your healthcare teams schedule for regular checkups. During office visits, take off your shoes and socks as soon as you get in the exam room. Ask your healthcare provider to examine your feet for problems. This will make it easier to find and treat small skin irritations before they get worse. Regular checkups can also help keep track of the blood flow and feeling in your feet. If you have neuropathy, you may need to have checkups more often. Wear Proper Footwear Wearing proper footwear is very important. If areas of your feet have been damaged by too much pressure, your healthcare provider may recommend changing your footwear. In some cases, avoiding high heels or tight work boots may be all thats needed. Or, your healthcare provider may recommend special shoes or custom inserts. These help protect your feet and keep existing irritations from getting worse. If you need special footwear, ask your healthcare provider if you qualify for [employer] diabetic shoe program. Make Sure Shoes and Socks Fit Any pair of shoes--new or old--should feel comfortable as soon as you put them on. There shouldnt be any rubbing when you walk. Wear the right shoe for any activity. For instance, a running shoe is designed to keep your feet injury-free while jogging. Buy shoes at the end of the day, when your feet are larger. Make sure they provide support without feeling too loose. Make sure your socks fit, t oo. Wear soft, seamless, well-padded socks for activity. Cotton or microfiber socks are best to help to absorb sweat. To protect your feet, avoid shoes that are open-toed or open-heeled. If you have questions about what kinds of shoes and socks are best, talk to your healthcare team. Get Regular Exercise Regular exercise improves blood flow in your feet. It also increases foot strength and flexibility.Gentle exercises, like walking or riding a stationary bicycle, are best. You can also do special foot exercises. Just be sure to talk with your healthcare provider before starting any exercise program. Also mention if any exercise causes pain, redness, or other signs of foot problems. Note: If you have any kind of break in the skin of your foot or ankle, keep the area clean. Then call your doctor--especially if the area doesnt appear to be healing. 1368-2033 [employer], [address] [place] [address], [place] [address]. All rights reserved. This information is not intended as a substitute for professional medical care. Always follow your healthcare professional's instructions. documented in this encounter Progress Notes * Mary Ghislaine Amita, DO - 07/04/2023 2:24 PM EDT Subjective: Stephanie Mccauley is a 72 year old female. Chief Complaint Patient presents with Re-Check 6 mo check, [facility] ER in early May, diagnosed with reflux, review medications HPI: Pt presents for follow up. Finally feeling better after several recent illnesses. Dx w/esophagitis in May, has family hx of this. Sx improved w/protonix 40mg and pepcid 20mg BID. She has tried to modify her diet, avoiding coffee/chocolate. She has an EGD scheduled end of June. Pt notes diamox is a little rough on her stomach. Lower extremity swelling is better. No longer taking torsemide/potassium. Echo showed no systolic or diastolic dysfunction. 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 90 Tab 0 cholecalciferol, VIT D3, (VITAMIN D3) 1000 UNITS Tablet Take 1 Tablet by mouth in the morning. OneTouch Ultra Blue In Vitro Strip (Glucose Blood) Use to test blood sugar once daily 100 Strip 11 Zoster Vac Recomb Adjuvanted 50 MCG/0.5ML Intramuscular Suspension Reconstituted (Shingrix) Inject 0.5 mL into a large muscle now and repeat dose in 60 to 180 days 1 Each 1 Lisinopril 5 MG Oral Tablet (Prinivil) Take 1 tablet by mouth once daily 90 Tablet 1 Atenolol 25 MG Oral Tablet (Tenormin) Take [...] both eyes every evening. 7.5 mL 3 Famotidine 20 MG Oral Tablet (Pepcid) Take 1 Tablet by mouth in the morning and 1 Tablet before bedtime. 60 Tablet 0 Pantoprazole Sodium 40 MG Oral Tablet Delayed Release (Protonix) Take 1 Tablet by mouth in the morning. 30 Tablet 5 Brimonidine Tartrate-Timolol 0.2-0.5 % Ophthalmic Solution (Combigan) Instill 1 Drop into both eyesin the morning and 1 Drop before bedtime. 30 mL 3 acetaZOLAMIDE ER 500 MG Oral Capsule Extended Release 12 Hour (Diamox Sequels) Take 1 Capsule by mouth in the morning and 1 Capsule before bedtime. (Patient taking differently: Take 1 Capsule by mouth in the morning and 1 Capsule before bedtime. Pt takes only one tablet daily due to stomach issues.) 60 Capsule 1 Torsemide 20 MG Oral Tablet (Demadex) Take 1 Tablet by mouth in the morning. (Patient not taking: Reported on 07/04/2023) 90 Tablet 1 Potassium Chloride ER 20 MEQ Oral Tablet Extended Release Take 1 Tablet by mouth in the morning. When taking torsemide (diuretic).. (Patient not taking: Reported on 07/04/2023) 30 Tablet 1 Current Facility-Administered Medications Medication Dose Route Frequency Provider Last Rate Last Admin Faricimab-svoa ([facility]) intravitreal inj 6 mg 6 mg Intravitreal PRN Nitish Richardson DO 6 mgat 03/28/23 1557 ROPivacaine (Naropin) inj 1.5 mg 1.5 mg Perineural PRN Nitish Richardson DO 1.5 mg at [id number] Past Medical History: Diagnosis Date BENIGN HYPERTENSION 04/25/2000 Cataract Diabetes mellitus (HCC) Diabetic macular edema (HCC) 05/13/2015 DM type 2, goal A1c below 7 07/17/2014 Dyslipidemia, goal LDL below 100 08/06/2014 Hypertension Past Surgical History: Procedure Laterality Date AQUEOUS SHUNT EYE W/ GRAFT Right 11/17/2022 AQUEOUS SHUNT TO EXTRAOCULAR RESERVOIR performed by Carolina Alejandra MD at OR [facility] BREAST BIOPSY Left 09/10/2014 benign core biopsy COLONOSCOPY, DIAGNOSTIC (RECTUM) 11/16/2014 normal, repeat 5 yrs/COLONOSCOPY FLEXIBLE PROXIMAL DIAGNOSTIC performed by Brent Alcantara MD at ENDOSCOPY [facility] COLONOSCOPY, DIAGNOSTIC (RECTUM) 12/06/2017 diverticulosis, repeat 10 yrs/COLONOSCOPY FLEXIBLE PROXIMAL DIAGNOSTIC performed by Brent Alcantara MD at ENDOSCOPY [facility] EGD, FLEXIBLE, DIAGNOSTIC 12/06/2017 normal bx/ESOPHAGOGASTRODUODENOSCOPY (EGD), FLEXIBLE, TRANSORAL, DIAGNOSTIC performed by Brent Alcantara MD at ENDOSCOPY [facility] EXPLORATION OF ABDOMEN N/A 07/28/2014 EXPLORATORY LAPAROTOMY performed by Jainne Waller DO at OR [facility] INJECTION OF EYE DRUG Right 09/15/2014 # 1 Eylea OD, Dr. Richardson INJECTION OF EYE DRUG Left 09/24/2014 # 1 Eylea OS, INJECTION OF EYE DRUG Right 10/15/2014 # 2 Eylea OD, INJECTION OF EYE DRUG Left 10/29/2014 # 2 Eylea OS, Dr. Richardson INJECTION OF EYE DRUG Right 11/11/2014 # 3 Eylea OD, Dr. Richardson INJECTION OF EYE DRUG Left 11/26/2014 # 3 Eylea OS, Dr. Richardson INJECTION OF EYE DRUG Right 12/25/2014 # 1 TRIESENCE OD, Dr. Richardson INJECTION OF EYE DRUG Left 01/07/2015 # 4 Eylea OS, INJECTION OF EYE DRUG Left 02/04/2015 # 1 Triescence OS, INJECTION OF EYE DRUG Right 03/18/2015 # 4 Eylea OD, Dr. Richardson INJECTION OF EYE DRUG Left 04/29/2015 # 5 Eylea OS, INJECTION OF EYE DRUG Left 05/13/2015 # 1 Iluvien OS; Dr. Richardson INJECTION OF EYE DRUG Right 05/19/2015 # 5 Eylea OD, Dr. Richardson INJECTION OF EYE DRUG Right 07/29/2015 # 1 Iluvien OD, Dr. Richardson INJECTION OF EYE DRUG Right 09/09/2015 #6 Eylea OD, Dr Richardson INJECTION OF EYE DRUG Left 09/24/2015 #6 Eylea OS, Dr. Richardson INJECTION OF EYE DRUG Right 10/22/2015 # 7 Eylea OD, Dr. Richardson INJECTION OF EYE DRUG Left 01/06/2016 # 7 Eylea OS, Dr Richardson INJECTION OF EYE DRUG Right 02/03/2016 # 8 Eylea OD, Dr. Richardson INJECTION OF EYE DRUG Left 04/20/2016 # 8 Eylea OS, Dr. Richardson INJECTION OF EYE DRUG Right 05/25/2016 # 9 Eylea OD, INJECTION OF EYE DRUG Right 07/06/2016 # 10 Eylea OD; Dr. Richardson INJECTION OF EYE DRUG Left 08/03/2016 # 9 Eylea OS, Dr. Richardson INJECTION OF EYE DRUG Right 08/18/2016 # 2 Triesence OD, INJECTION OF EYE DRUG Right 10/31/2016 # 11 Eylea OD, Dr Richardson INJECTION OF EYE DRUG Left 12/07/2016 # 10 Eylea OS, Dr Richardson INJECTION OF EYE DRUG Right 01/18/2017 # 12 Eylea OD; Dr. Richardson INJECTION OF EYE DRUG Left 03/29/2017 # 11 Eylea OS, Dr. Richardson INJECTION OF EYE DRUG Right 05/15/2017 # 13 Eylea OD, Dr. Richardson INJECTION OF EYE DRUG Left 06/26/2017 # 12 Eylea OS, Dr Way INJECTION OF EYE DRUG Right 10/05/2017 # 14 Eylea OD, Dr. Richardson INJECTION OF EYE DRUG Left 12/04/2017 # 13 Eylea OS, Dr. Richardson INJECTION OF EYE DRUG Right 02/26/2018 #15 Eylea OD, Dr. Richardson INJECTION OF EYE DRUG Left 04/18/2018 # 14 Eylea OS, Dr. Richardson INJECTION OF EYE DRUG Right 05/02/2018 # 16 Eylea OD, INJECTION OF EYE DRUG Right 06/20/2018 # 17 Eylea OD, Dr. Richardson INJECTION OF EYE DRUG Left 07/03/2018 # 15 Eylea OS, INJECTION OF EYE DRUG Right 08/01/2018 # 18 Eylea OD, Dr. Richardson INJECTION OF EYE DRUG Left 08/15/2018 # 16 Eylea OS, INJECTION OF EYE DRUG Right 10/16/2018 # 19 Eylea OD, Dr. Richardson INJECTION OF EYE DRUG Left 10/24/2018 # 18 Eylea OS, Dr. Richardson INJECTION OF EYE DRUG Right 12/04/2018 # 20 Eylea OD, INJECTION OF EYE DRUG Left 12/18/2018 # 19 Eylea OS, Dr. Richardson INJECTION OF EYE DRUG Right 01/30/2019 # 21 Eylea OD, Dr. Richardson INJECTION OF EYE DRUG Left 02/05/2019 # 20 Eylea OS, Dr. Richardson INJECTION OF EYE DRUG Left 03/19/2019 # 21 Eylea OS, Dr. Richardson INJECTION OF EYE DRUG Right 03/27/2019 # 22 Eylea OD, INJECTION OF EYE DRUG Left 05/06/2019 # 22 Eylea OS, INJECTION OF EYE DRUG Right 05/20/2019 # 23 Eylea OD, Dr. Richardson INJECTION OF EYE DRUG Left 07/01/2019 # 23 Eylea OS, Dr. Richardson INJECTION OF EYE DRUG Right 07/15/2019 # 24 Eylea OD, INJECTION OF EYE DRUG Left 08/20/2019 # 24 Eylea OS, Dr. Richardson INJECTION OF EYE DRUG Right 09/02/2019 # 25 Eylea OD, INJECTION OF EYE DRUG Left 10/08/2019 # 25 Eylea OS, Dr. Richardson INJECTION OF EYE DRUG Right 11/04/2019 # 26 Eylea OD, Dr. Richardson INJECTION OF EYE DRUG Left 12/03/2019 # 26 Eylea OS, Dr. Richardson INJECTION OF EYE DRUG Right 01/08/2020 # 27 Eylea OD, Dr. Richardson INJECTION OF EYE DRUG Left 02/11/2020 # 27 Eylea OS, Dr. Richardson INJECTION OF EYE DRUG Right 03/17/2020 # 28 Eylea OD, Dr. Richardson INJECTION OF EYE DRUG Left 06/01/2020 # 28 Eylea OS, INJECTION OF EYE DRUG Right 06/22/2020 # 29 Eylea OD, INJECTION OF EYE DRUG Left 07/22/2020 # 29 Eylea OS, Dr. Richardson INJECTION OF EYE DRUG Right 08/05/2020 # 30 Eylea OD, INJECTION OF EYE DRUG Left 09/09/2020 # 30 Eylea OS, Dr. Richardson INJECTION OF EYE DRUG Right 09/23/2020 # 31 Eylea OD, INJECTION OF EYE DRUG Left 10/28/2020 #31 Eylea OS, Dr Richardson INJECTION OF EYE DRUG Right 11/11/2020 # 32 Eylea OD, Dr. Richardson INJECTION OF EYE DRUG Left 12/09/2020 # 32 Eylea OS, Dr. Richardson INJECTION OF EYE DRUG Right 01/03/2021 # 33 Eylea OD, INJECTION OF EYE DRUG Left 01/24/2021 # 33 Eylea OS, INJECTION OF EYE DRUG Right 02/15/2021 # 34 Eylea OD, Dr. Richardson INJECTION OF EYE DRUG Left 03/21/2021 # 34 Eylea OS, Dr. Richardson INJECTION OF EYE DRUG Right 04/22/2021 # 35 Eylea OD, Dr. Richardson INJECTION OF EYE DRUG Left 05/12/2021 # 35 Eylea OS, Dr. Richardson INJECTION OF EYE DRUG Right 06/08/2021 # 36 Eylea OD, Dr. Richardson INJECTION OF EYE DRUG Left 07/08/2021 # 36 Eylea OS, Dr. Richardson INJECTION OF EYE DRUG Right 08/15/2021 # 37 Eylea OD, Dr. Richardson INJECTION OF EYE DRUG Left 09/23/2021 # 37 Eylea OS, Dr. Richardson INJECTION OF EYE DRUG Right 10/31/2021 # 38 Eylea OD, Dr. Richardson INJECTION OF EYE DRUG Left 12/20/2021 # 38 Eylea OS, Dr. Richardson INJECTION OF EYE DRUG Right 01/27/2022 # 1 Vabysmo OD, Dr. Richardson INJECTION OF EYE DRUG Left 03/09/2022 # 1 Vabysmo OS, Dr. Richardson INJECTION OF EYE DRUG Right 04/20/2022 # 2 Vabysmo OD, Dr. Richardson INJECTION OF EYE DRUG Left 06/01/2022 # 2 Vabysmo OS, Dr. Richardson INJECTION OF EYE DRUG Right 11/02/2022 # 3 Vabysmo OD, Dr. Richardson INJECTION OF EYE DRUG Left 11/08/2022 # 3 Vabysmo OS, Dr. Richardson INJECTION OF EYE DRUG Left 03/28/2023 # 4 Vabysmo OS, Dr. Richardson INTRA-ADB MASS MORE THN 10 CM GEENA, EXCISION N/A 07/28/2014 EXCISION OR DESTRUCTION ABDOMINAL TUMOR OR CYST OPEN PROCEDURE 10CM OR GREATER performed by Janine Waller DO at OR [facility] LASER SURGERY OF INNER EYE STRANDS Right 01/03/2017 Micropulse Laser OD, Dr. Richardson (consent signed) LASERING OF SECONDARY CATARACT Bilateral 02/2016 OU-Dr. Lazara PRINCE ORDER ([facility] ONLY) Right 09/15/2014-09/16/2015 EYLEA CONSENT OD SIGNED; DR VALERIY SALCIDO ([facility] ONLY) Left 09/24/2014-09/25/2015 EYLEA OS consnet signed, Dr.Cessna SURESH SALCIDO ([facility] ONLY) Right 12/25/14-12/26/15 TRIESENCE OD CONSENT SIGNED, Dr. Valeriy PRINCE ORDER ([facility] ONLY) Left 02/04/2015-02/05/2016 TRIESENCE OS consent signed, DR.Cessna SURESH SALCIDO ([facility] ONLY) Left 05/13/2015-05/13/2016 ILUVIEN CONSENT OS SIGNED; DR VALERIY SALCIDO ([facility] ONLY) Right 07/29/2015-07/28/2016 ILUVIEN CONSENT OD SIGNED; DR VALERIY SALCIDO ([facility] ONLY) Right 10/22/15-10/21/16 EYLEA CONSENT OD SIGNED; DR CESSNA MISCELLANEOUS ORDER ([facility] ONLY) Bilateral 11/30/15-11/29/16 EYLEA CONSENT OU SIGNED; DR VALERIY SALCIDO ([facility] ONLY) Right 08/18/2016-08/18/2017 Triesence OD Consent signed, Dr.Cessna PRINCE ORDER ([facility] ONLY) Bilateral 12/07/16-12/07/17 EYLEA CONSENT OU SIGNED, DR VALERIY SALCIDO ([facility] ONLY) Bilateral 12/04/2017-12/04/2018 EYLEA CONSENT SIGNED OU; DR VALERIY PRINCE ORDER ([facility] ONLY) ACT 112 SIGNED, Dr. Valeriy PRINCE ORDER ([facility] ONLY) Bilateral 12/04/2018-12/05/2019 Eylea OU consent signed, Dr.Cessna SURESH SALCIDO ([facility] ONLY) Bilateral 12/03/2019-12/02/2020 Eylea OU Consent signed, OTHER Left 12/27/2020 Laser proceudre for pressure OTHER Right 12/14/2020 Laser for pressure, OTHER (INFORMATION) Bilateral EYLEA OU CONSENT DR. RICHARDSON/AURELIANO EXP. 12/09/21 OTHER (INFORMATION) Bilateral EYLEA OU CONSENT DR. RICHARDSON/AURELIANO EXP. 12/20/22 OTHER (INFORMATION) VABYSMO OU CONSENT SIGNED Dr. Richardson/Aureliano (exp 01-27-23) OTHER (INFORMATION) VABYSMO CONSENT SIGNED EXP04/02/24, DR. RICHARDSON/AURELIANO REMOVE CATARACT, INSERT LENS PROSTH Right 01/13/2015 OD REPAIR/GRAFT SCLERAL LESION Right 11/17/2022 REPAIR SCLERAL STAPHYLOMA WITH GRAFT performed by Carolina Alejandra MD at OR [facility] TOTAL ABD HYSTERECTOMY W/WO REMOVAL OF TUBE(S) N/A 07/28/2014 TOTAL ABDOMINAL HYSTERECTOMY WITH OR WITHOUT TUBES AND OVARIES performed by Janine Waller DO at OR [facility] TREATMENT OF EXTENSIVE RETINOPATHY, PHOTOCOAGULATION Right 01/03/2023 Laser OD, Dr. Richardson TREATMENT OF EXTENSIVE RETINOPATHY, PHOTOCOAGULATION Left 01/24/2023 Laser treatment OS, Dr. Richardson TREATMENT OF EXTENSIVE RETINOPATHY, PHOTOCOAGULATION Right 01/31/2023 Laser treatment OD, Dr. Richardson Review of patient's allergies indicates: Allergen Reactions Bee Venom Edema airway and Edema Other Eye swelled shut Macrobid [Nitrofurantoin] vomiting Sulfa Antibiotics Hives and Other (Please comment) Boil/Acne like sores on abdomen Objective: BP 114/60 (BP Site: Left Arm, BP Position: Sitting, BP Cuff Size: Large) | Pulse 60 | Temp 36.4 C(97.5 F) (Tympanic) | Resp 16 | Wt 83.5 kg (184 lb) | BMI 34.77 kg/m | BSA 1.9 m Review of Systems: As per HPI, all other ROS neg. Physical Exam: General: alert, healthy and no distress Heart: regular rate & rhythm, no murmurs and no gallops Lungs: chest symmetric with normal AP diameter, no chest deformities noted, lungs clear to auscultation Extremities: no joint deformities, effusion, or inflammation, no edema Gastroesophageal reflux disease with esophagitis, unspecified whether hemorrhage (Primary) - Famotidine 20 MG Oral Tablet (Pepcid); Take 1 Tablet by mouth in the morning and 1 Tablet before bedtime. Will try holding protonix after a month to see if sx stable off the medication, can resume if any signs of GI upset/discomfort Keep egd appt in August, /u sooner if new or worsening sx Type 2 diabetes mellitus with hemoglobin A1c goal of less than 7.0% ([facility]) - HEMOGLOBIN A1C; Future; Expected date: 07/04/2023 - PHOSPHORUS; Future; Expected date: 07/04/2023 - ALBUMIN / CREATININE RATIO, URINE; Future; Expected date: 07/04/2023 - BASIC METABOLIC PANEL; Future; Expected date: 07/04/2023 Chronic kidney disease, stage 3b ([facility]) - PHOSPHORUS; Future; Expected date: 07/04/2023 - BASIC METABOLIC PANEL; Future; Expected date: 07/04/2023 Risk and functional assessment DM type 2 nursing care encounter (HCC) - DIABETES FOOT EXAM Follow up: in 6 month(s). Ghislaine Hernandez DO * Adia Spears RN - 07/04/2023 2:01 PM EDT DM Foot Exam completed today. Provider aware. Adia Spears RN Socks and Shoes Removed for Annual Diabetic Foot Screening RIGHT FOOT: No Reddened, Cracking, Or Open Areas Noted. RIGHT Dorsalis Pedis Pulse: Palpable RIGHT Posterior Tibial Pulse: Palpable RIGHT Monofilament:Patient reports feeling monofilament pressure on plantar surface of foot LEFT FOOT: No Reddened, Cracking or Open Areas Noted. LEFT Dorsalis Pedis Pulse: Palpable LEFT Posterior Tibial Pulse: Palpable LEFT Monofilament:Patient reports feeling monofilament pressure on plantar surface of foot Do you need diabetic shoes: No documented in this encounter Plan of Treatment Upcoming Encounters Date Type Department Care Team (Latest Contact Info) Description 4 3:30 PM EDT Laboratory Laboratory, [facility] [address] [place] [phone] [facility] [address] [place] [address] Type 2 diabetes mellitus with hemoglobin A1c goal of less than 7.0% ([facility]); Chronic kidney disease, stage 3b ([facility]) 4 1:15 PM EDT Office Visit [facility] [address] [place] [address] Carolina Ramirez MD [address] [place] [address] 4 2:30 PM EDT Office Visit Ophthalmology, [facility] [address] [place] [address] Nitish Richardson, DO [address] [place] [address] 4 11:15 AM EDT Hospital Encounter ENDO [facility], Endoscopy Room [facility] [address] [place] [phone] Brent Alcantara MD [address] [place] [address] 4 11:15 AM EDT - 4 11:45 AM EDT Surgery ENDO [facility], Endoscopy Room [facility] [address] [place] [phone] Brent Alcantara MD [address] [place] [address] ESOPHAGOGASTRODUODENOSCOPY (EGD), FLEXIBLE, TRANSORAL, DIAGNOSTIC 4 9:00 AM EDT Imaging Radiology [address] [place] [address] 4 1:00 PM EDT Office Visit [facility] [address] [place] [address] Ghislaine Hernandez, DO [address] [place] [address] 5 1:00 PM EDT Office Visit [facility] [address] [place] [address] Ghislaine Hernandez, DO [address] [place] [address] Pending Results Name Type Priority Associated Diagnoses Date /Time HEMOGLOBIN A1C Lab Routine Type 2 diabetes mellitus with hemoglobin A1c goal of less than 7.0% (HCC) 07/04/2023 3:02 PM EDT PHOSPHORUS Lab Routine Chronic kidney disease, stage 3b (HCC) Type 2 diabetes mellitus with hemoglobin A1c goal of less than 7.0% (HCC) 07/04/2023 3:02 PM EDT BASIC METABOLIC PANEL Lab Routine Chronic kidney disease, stage 3b (HCC) Type 2 diabetes mellitus with hemoglobin A1c goal of less than 7.0% (HCC) 07/04/2023 3:02 PM EDT Scheduled Orders Name Type Priority Associated Diagnoses Orde r Schedule HEMOGLOBIN A1C Lab Routine Type 2 diabetes mellitus with hemoglobin A1c goal of less than 7.0% (HCC) Expected: 07/04/2023 (Approximate), Expires: 07/03/2024 PHOSPHORUS Lab Routine Chronic kidney disease, stage 3b (HCC) Type 2 diabetes mellitus with hemoglobin A1c goal of less than 7.0% (HCC) Expected: 07/04/2023 (Approximate), Expires: 07/03/2024 ALBUMIN / CREATININE RATIO, URINE Lab Routine Type 2 diabetes mellitus with hemoglobin A1c goal of less than 7.0% (HCC) Expected: 07/04/2023 (Approximate), Expires: 07/03/2024 BASIC METABOLIC PANEL Lab Routine Chronic kidney disease, stage 3b (HCC) Type 2 diabetes mellitus with hemoglobin A1c goal of less than 7.0% (HCC) Expected: 07/04/2023 (Approximate), Expires: 07/03/2024 Scheduled Procedures Name Priority Associated Diagnoses Date/Ti me ESOPHAGOGASTRODUODENOSCOPY ( EGD), FLEXIBLE, TRANSORAL, DIAGNOSTIC GERD (gastroesophageal reflux disease) 09/04/2023 11:15 AM EDT COLONOSCOPY FLEXIBLE PROXIMA L DIAGNOSTIC Recall Encounter for screening colonoscopy Health Maintenance Due Date Last Done Comments Cologuard 08/16/1996 Sigmoidoscopy 08/16/1996 Zoster Vaccines (3 of 3) 01/26/2019 12/01/2018, 12/09 COVID-19 Vaccine ( season) 2022 09/03/2020, 08/13/2020 Depression Screening 06/29/2023 06/28/2022 Albumin/Creatinine Ratio 07/12/2023 023, 01/10/2022, 12/22/2021, Additional history exists CKD PHOS USE SMARTSET 98741 07/12/2023 04/0 07/2022, 06/14/2021, 06/04/2020, Additional history exists HbA1c 07/17/2023 01/15/2023, 04/0 07/2022, 12/21/2021, Additional history exists Mammogram 09/28/2023 09/27/2022, 09/08, 09/26/2021, Additional history exists GFR 10/06/2023 04/06/2023, 03/10, 03/20/2023, Additional history exists Diabetic Eye Exam 11/14/2023 11/13/2022, , 11/13/2022, Additional history exists B-12 03/30/2024 03/30/2023, 10/0 12/2022, 04/28/2022, Additional history exists CKD HGB USE SMARTSET 64250 04/06/202404/06, 04/06/2023, 03/30/2023, Additional history exists Fecal Occult Blood Test 04/11/2024 04/11/2023, 10/05 DXA Scan 04/30/2024 04/30/2017 Diabetic Foot Exam 07/03/2024 07/04/2023, 0 06/28/2022, [...] this encounter Medical Devices Implanted Type Area Machine Applicator Cementer Device Identifier Shelf Expiration Date Model / Serial / Lot Shunt Tube Glaucoma Ahmed Fp7 - [id number] - [id number] Implanted:Qty: 1 on 11/17/2022 by Carolina Ramirez MD at OR [facility] Right: Eye [employer] [id number] 09/17/2024 FP7 / [id number] / [id number] Graft [place] Cornea Split - [id number] Implanted:Qty: 1 on 11/17/2022 by Carolina Ramirez MD at OR [facility] Right: Eye [employer] 09/11/2024 [facility]-1 / [id number] / [id number] documented as of this encounter Visit Diagnoses Diagnosis Gastroesophageal reflux disease with esophagitis, unspecified whether hemorrhage- Primary Type 2 diabetes mellitus with hemoglobin A1c goal of less than 7.0% (HCC) Chronic kidney disease, stage 3b (HCC) Risk and functional assessment Screening for unspecified condition DM type 2 nursing care encounter (HCC) Type II or unspecified type diabetes mellitus without mention of complication, not stated as uncontrolled Type 2 diabetes mellitus with hemoglobin A1c goal of less than 7.0% (HCC) Chronic kidney disease, stage 3b (HCC) GERD (gastroesophageal reflux disease) Esophageal reflux documented in this encounter Advance Directives Latest Code Status on File Code Status Date Activated Date Inactivated Comments Full Code 07/28/2014 3:21 PM 07/31/2014 4:03 PM This order reflects the patients wishes and were consensually agreed upon. Care Teams Tax Advisor Relationship Specialty Start Date End Date Ghislaine Hernandez DO [address] [facility] [place] [address] PCP - General Family Medicine 07/09/14 documented as of this encounter"
--- OUTSIDE RECORDS SUMMARY | 2023-08-06 10:01 | External Medical Summary ---
Author Name Unknown Address Unknown Organization [facility] [place] [address] Laboratory Report Ordering Provider Test Date Status MELANIE RUIZ 07/04/2023 15:02:06 Final Observation Date Value Abnormality Reference (Units ) Status BUN 07/04/2023 15:02:06 58 Above high normal 6-20 (mg/dL) Final Creatinine 07/04/2023 15:02:06 1.8 Above high normal 0.5-1.0 (mg/dL) Final Glomerular filtration rate/1.73 sq M.predicted [Volume Rate/Area] in Serum, Plasma or Blood by Creatinine-based formula (CKD-EPI) 07/04/2023 15:02:06 30 Below low normal >=60 (mL/min) Final eGFR is calculated based on the CKD-EPI 2020 equation Sodium 07/04/2023 15:02:06 138 135-146 (m mol/L) Final Potassium 07/04/2023 15:02:06 4.4 3.5-5.1 (m mol/L) Final Cl 07/04/2023 15:02:06 108 Above high normal 98 -107 (mmol/L) Final CO2 07/04/2023 15:02:06 19 Below low normal 22- 32 (mmol/L) Final Anion gap 07/04/2023 15:02:06 11 7-15 (mmol /L) Final Glucose 07/04/2023 15:02:06 123 Above high normal 70 -120 (mg/dL) Final Calcium 07/04/2023 15:02:06 9.3 8.4-10.2 ( mg/dL) Final Performing Location [facility] [address] [place] [id number]
--- OUTSIDE RECORDS SUMMARY | 2023-08-06 10:01 | External Medical Summary | Summary of Care ---
Author Name Unknown Organization [facility] Address [address] [place] [address] Phone [phone] Care Team Providers Care Surveillance Supervisor Name Role Phone NathanielGhislaine alcantar Amita PUGH Primary Care Provider [phone] Reason for Visit * Reason Onset Date Comments Appointment 06/05/2023 EGD Encounter Details Date Type Department Care Team (Late st Contact Info) Description 06/05/2023 Telephone Family Practice [facility] [address] [place] [address] Nan Joe PA-C [address] [place] [address] Appointment (EGD) Allergies Active Allergy Reactions Criticality [...] to retial exam per Dr [place] [address] Active Atenolol 25 MG Oral Tablet (Tenormin)Indications [...] Encounter - Dilcia Sullivan OSA - 06/28/2023 3:07 PM EDT Egd 09/03 * Telephone Encounter - Dilcia Sullivan OSA - 06/28/2023 3:04 PM EDT Lmm * Telephone Encounter - Louise Waller OSA - 06/05/2023 1:15 PM EST EGD Pt has DM-on metformin per pt documented in this encounter Plan of Treatment Upcoming Encounters Date Type Department Care Team (Latest Contact Info) Description 4 2:20 PM EDT Office Visit Family Practice [facility] [address] [place] [address] Ghislaine Hernandez, DO [address] [place] [address] 4 1:15 PM EDT Office Visit [facility] [address] [place] [address] Carolina Ramirez MD [address] [place] [address] 4 2:30 PM EDT Office Visit Ophthalmology, [facility] [address] [place] [address] Nitish Crooks, DO [address] [place] [address] 4 11:15 AM EDT Hospital Encounter ENDO [facility], Endoscopy Room [facility] [address] [place] [phone] Brent Alcantara MD [address] [place] [address] 4 11:15 AM EDT - 4 11:45 AM EDT Surgery ENDO [facility], Endoscopy Room [facility] [address] [place] [phone] Brent Alcantara MD [address] [place] [address] ESOPHAGOGASTRODUODENOSCOPY (EGD), FLEXIBLE, TRANSORAL, DIAGNOSTIC 4 9:00 AM EDT Imaging Radiology [facility] [address] [place] [address] 1:00 PM EDT Office Visit Family Practice [facility] [address] [place] [address] Ghisliane Hernandez, [address] [place] [address] Scheduled Procedures Name Priority Associated Diagnoses Date/Ti [...] Additional history exists CKD PHOS USE SMARTSET 99353 07/12/2023 04/0 07/2022, 06/14/2021, 06/04/2020, Additional history exists HbA1c 07/17/2023 01/15/2023, 04/0 07/2022, 12/21/2021, Additional history exists Mammogram 09/28/2023 09/27/2022, 09/08, 09/26/2021, Additional history exists GFR 10/06/2023 04/06/2023, 03/10, 03/20/2023, Additional history exists Diabetic Eye Exam 11/14/2023 11/13/2022, , 11/13/2022, Additional history exists B-12 03/30/2024 03/30/2023, 10/0 12/2022, 04/28/2022, Additional history exists CKD HGB USE SMARTSET 70337 04/06/202404/06, 04/06/2023, 03/30/2023, Additional history exists Fecal [...] this encounter Medical Devices Implanted Type Area Commercial Horticulture Instructor Device Identifier Shelf Expiration Date Model / Serial / Lot Shunt Tube Glaucoma Ahmed Fp7 - [id number] - [id number] Implanted:Qty: 1 on 11/17/2022 by Carolina Ramirez MD at OR [facility] Right: Eye [employer] [id number] 09/17/2024 TRACY / [id number] / [id number] Graft [place] Cornea Split - [id number] Implanted:Qty: 1 on 11/17/2022 by Carolina Ramirez MD at OR [facility] Right: Eye [employer] 09/11/2024 O-1 / [id number] / [id number] documented as of this encounter Advance Directives Latest Code Status on File Code Status Date Activated Date Inactivated Comments Full Code 07/28/2014 3:21 PM 07/31/2014 4:03 PM This order reflects the patients wishes and were consensually agreed upon. Care Teams Surveillance Supervisor Relationship Specialty Start Date End Date Ghislaine Hernandez DO [address] [place] [address] PCP - General Family Medicine 07/09/14 documented as of this encounter
--- OUTSIDE RECORDS SUMMARY | 2023-08-06 10:01 | External Medical Summary | Summary of Care ---
Author Name Unknown Organization [facility] Address [address] [place] [address] Phone [phone] Care Team Providers Care Mica Layer Name Role Phone NathanielGhislaine alcantar Primary Care Provider [phone] Reason for Visit * Reason Comments Outpatient Testing Encounter Details Date Type Department Care Team (Late st Contact Info) Description 07/06/2023 9:40 AM EDT Laboratory Laboratory, [place] [address] [place] [address] [place], Laboratory [address] [place] [address] Type 2 diabetes mellitus with hemoglobin A1c goal of less than 7.0% ([facility]) Allergies Active Allergy Reactions Criticality Noted Date Comments Bee Venom Edema airway,Edema Other High 01/15/2014 Eye swelled shut Nitrofurantoin 11/08/2018 vomiting Sulfa Antibiotics Hives,Other (Please comment) 01/15/2014 Boil/Acne like sores on abdomen documented as of this encounter (statuses as of 07/06/2023) Medications Medication Sig Dispensed Refills Start Date [...] 06/28/2022 Active Lisinopril 5 MG Oral Tablet (Prinivil)Indication s:HTN, goal below 130/80 Take 1 tablet by mouth once daily 90 Tablet 1 01/25/2023 Active Atenolol 25 MG Oral Tablet (Tenormin)Indication [...] before bedtime. 180 Tablet 3 07/04/2023 Active Hospital, Clinic, or Other Facility Administered [...] as of this encounter (statuses as of 07/06/2023) Active Problems Problem Noted Date Diagnosed Date [...] as of this encounter (statuses as of 07/06/2023) Resolved Problems Problem Noted Date Diagnosed Date [...] as of this encounter (statuses as of 07/06/2023) Immunizations Name Administration Dates Next Due COVID-19 mRNA, LNP-s, No Pre serve, 2-Dose Series (Zadego) 09/03/2020,08/13/2020 Pneumococcal Conjugate Vacc, 13 Valent (Prevnar) [...] Description 4 1:15 PM EDT Office Visit [facility] [address] [address] Carolina Ramirez MD [address] [place] [address] 4 2:30 PM EDT Office Visit Ophthalmology, [facility] [address] [place] [address] Nitish Crooks, [address] [place] [address] 4 11:15 AM EDT Hospital Encounter [facility], Endoscopy Room [facility] [address] [place] [phone] Brent Alcantara MD [address] [place] [address] 4 11:15 AM EDT - 4 11:45 AM EDT Surgery ENDO [facility], Endoscopy Room [facility] [address] [place] [phone] Brent Alcantara MD [address] [place] [address] ESOPHAGOGASTRODUODENOSCOPY (EGD), FLEXIBLE, TRANSORAL, DIAGNOSTIC 4 9:00 AM EDT Imaging Radiology [facility] [address] [place] [address] 4 1:00 PM EDT Office Visit [facility] [address] [place] [address] Ghislaine Hernandez, DO [address] [place] [address] 5 1:00 PM EDT Office Visit [facility] [address] [place] [address] Ghislaine Hernandez, DO [address] [place] [address] Pending Results Name Type Priority Associated Diagnoses Date /Time ALBUMIN / CREATININE RATIO, URINE Lab Routine Type 2 diabetes mellitus with hemoglobin A1c goal of less than 7.0% ([facility]) 07/06/2023 9:30 AM EDT Scheduled Procedures Name Priority Associated Diagnoses Date/Ti vt ESOPHAGOGASTRODUODENOSCOPY ( EGD), FLEXIBLE, TRANSORAL, DIAGNOSTIC GERD (gastroesophageal reflux disease) 09/04/2023 11:15 AM EDT COLONOSCOPY FLEXIBLE PROXIMA L DIAGNOSTIC Recall Encounter for screening colonoscopy Health Maintenance Due Date Last Done Comments Cologuard 08/16/1996 Sigmoidoscopy 08/16/1996 Zoster Vaccines (3 of 3) 01/26/2019 12/01/2018, 12/09 COVID-19 Vaccine ( season) 2022 09/03/2020, 08/13/2020 Depression Screening 06/29/2023 06/28/2022 Albumin/Creatinine Ratio 07/12/2023 023, 01/10/2022, 12/22/2021, Additional history exists Mammogram 09/28/2023 09/27/2022, 09/08, 09/26/2021, Additional history exists Diabetic Eye Exam 11/14/2023 11/13/2022, , 11/13/2022, Additional history exists GFR 01/04/2024 07/04/2023, 03/10, 03/30/2023, Additional history exists HbA1c 01/04/2024 07/04/2023, 10/0 12/2022, 07/11/2022, Additional history exists B-12 03/30/2024 03/30/2023, 10/0 12/2022, 04/28/2022, Additional history exists CKD HGB USE SMARTSET 73553 04/06/202404/06, 04/06/2023, 03/30/2023, Additional history exists Fecal Occult Blood Test 04/11/2024 04/11/2023, 10/05 DXA Scan 04/30/2024 04/30/2017 CKD PHOS USE SMARTSET 69117 07/03/202406/08, 07/11/2022, 06/14/2021, Additional history exists Diabetic [...] this encounter Medical Devices Implanted Type Area Block Stacker Device Identifier Shelf Expiration Date Model / Serial / Lot Shunt Tube Glaucoma Ahmed Fp7 - [id number] - [id number] Implanted:Qty: 1 on 11/17/2022 by Carolina Ramirez MD at [facility] Right: Eye [employer] [id number] 09/17/2024 FP7 / [id number] / [id number] 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 - [id number] Implanted:Qty: 1 on 11/17/2022 by Carolina Ramirez MD at [facility] Right: Eye [employer] 09/11/2024 O-HH1 / [id number] / [id number] documented as of this encounter Visit Diagnoses Diagnosis Type 2 diabetes mellitus with hemoglobin A1c goal of less than 7.0% ([facility]) GERD (gastroesophageal reflux disease) Esophageal reflux documented in this encounter Advance Directives Latest Code Status on File Code Status Date Activated Date Inactivated Comments Full Code 07/28/2014 3:21 PM 07/31/2014 4:03 PM This order reflects the patients wishes and were consensually agreed upon. Care Teams Mica Layer Relationship Specialty Start Date End Date Ghislaine Hernandez DO [address] [address] PCP - General Family Medicine 07/09/14 documented as of this encounter
--- OUTSIDE RECORDS SUMMARY | 2023-08-06 10:01 | External Medical Summary ---
Author Name Unknown Address Unknown Organization K01[place] [place] [address] [place] [address] Laboratory Report Ordering Provider Test Date Status ANNABEL RUIZIbeth 07/06/2023 09:30:24 Final Normal: <30 mg/g creatinine< br/>High: 30-300 mg/g creatinine
Very High: >300 mg/g creatinine
Nephrotic: >2200 mg/g creatinine Observation Date Value Abnormality Reference (Units) Status Albumin, Urine 07/06/2023 09:30:24 <1.20 (mg/dL) Final Creatinine, Urine 07/06/2023 09:30:24 32 (mg/dL) Final ALBUMIN/CREATININE RATIO, HIDE 07/06/2023 09:30:24 Uninterpretable Albumin/Creatinine ratio due to very low albumin and creatinine values. <30 (mg/g Creat) Final Performing Location [facility] [place] [facility] [address] [place] [address]
--- OUTSIDE RECORDS SUMMARY | 2023-08-06 10:01 | External Medical Summary | Summary of Care ---
Author Name Unknown Organization [facility] Address [address] [place] [address] Phone [phone] Care Team Providers Care Textile Conversion Manager Name Role Phone NathanielGhislaine alcantar Primary Care Provider [phone] Reason for Visit * Reason Comments Outpatient Testing Encounter Details Date Type Department Care Team (Late st Contact Info) Description 07/04/2023 3:30 PM EDT Laboratory Laboratory, [facility] [address] [place] [address] [facility] [address] [place] [address] Type 2 diabetes mellitus with hemoglobin A1c goal of less than 7.0% ([facility]); Chronic kidney disease, stage 3b ([facility]) Allergies Active Allergy Reactions Criticality [...] hemoglobin A1c goal of less than 7.0% ([facility]) Use to test blood sugar [...] mRNA, LNP-s, No Pre serve, 2-Dose Series ([employer]) 09/03/2020,08/13/2020 Pneumococcal Conjugate Vacc, 13 Valent (Prevnar) [...] Description 4 1:15 PM EDT Office Visit [facility] Eye [facility] [address] [place] [address] Carolina Ramirez MD [address] [place] [address] 4 2:30 PM EDT Office Visit Ophthalmology, [facility] [address] [place] [address] Nitish Crooks DO [address] [place] [address] 4 11:15 AM EDT Hospital Encounter [facility], Endoscopy Room [facility] [address] [place] [phone] Brent Alcantara MD [address] [place] [address] 4 11:15 AM EDT - 4 11:45 AM EDT Surgery [facility], Endoscopy Room [facility] [address] [place] [address] Brent Alcantara MD [address] [place] [address] ESOPHAGOGASTRODUODENOSCOPY (EGD), FLEXIBLE, TRANSORAL, DIAGNOSTIC 4 9:00 AM EDT Imaging Radiology [address] [place] [address] 4 1:00 PM EDT Office Visit [facility] [address] [place] [address] Ghislaine Hernandez, DO [address] [place] [address] 5 1:00 PM EDT Office Visit [facility] [address] [place] [address] Ghislaine Hernandez, DO [address] [place] [address] Pending Results Name Type Priority Associated Diagnoses Date /Time HEMOGLOBIN A1C Lab Routine Type 2 diabetes mellitus with hemoglobin A1c goal of less than 7.0% ([facility]) 07/04/2023 3:02 PM EDT PHOSPHORUS Lab Routine Chronic kidney disease, stage 3b (HCC) Type 2 diabetes mellitus with hemoglobin A1c goal of less than 7.0% ([facility]) 07/04/2023 3:02 PM EDT BASIC METABOLIC PANEL Lab Routine Chronic kidney disease, stage 3b (HCC) Type 2 diabetes mellitus with hemoglobin A1c goal of less than 7.0% ([facility]) 07/04/2023 3:02 PM EDT Scheduled Procedures Name Priority Associated Diagnoses [...] Additional history exists CKD PHOS USE SMARTSET 79334 07/12/2023 04/0 07/2022, 06/14/2021, 06/04/2020, Additional history exists HbA1c 07/17/2023 01/15/2023, 04/0 07/2022, 12/21/2021, Additional history exists Mammogram 09/28/2023 09/27/2022, 09/08, 09/26/2021, Additional history exists GFR 10/06/2023 04/06/2023, 03/10, 03/20/2023, Additional history exists Diabetic Eye Exam 11/14/2023 11/13/2022, , 11/13/2022, Additional history exists B-12 03/30/2024 03/30/2023, 10/12/2022, 04/28/2022, Additional history exists CKD HGB USE SMARTSET 69976 04/06/202404/06, 04/06/2023, 03/30/2023, Additional history exists Fecal [...] this encounter Medical Devices Implanted Type Area Legal File Clerk Device Identifier Shelf Expiration Date Model / Serial / Lot Shunt Tube Glaucoma Ahmed Fp7 - [id number] - [id number] Implanted:Qty: 1 on 11/17/2022 by Carolina Ramirez MD at [facility] Right: Eye [employer] [id number] 09/17/2024 FP7 / [id number] / [id number] Graft [place] Cornea Split - [id number] Implanted:Qty: 1 on 11/17/2022 by Carolina Ramirez MD at [facility] Right: Eye [employer] 09/11/2024 O-HH1 / [id number] / [id number] documented as of this encounter Visit [...] and were consensually agreed upon. Care Teams Textile Conversion Manager Relationship Specialty Start Date End Date Ghislaine Hernandez DO [address] [place] [address] PCP - General Family Medicine 07/09/14 documented as of this encounter
--- OUTSIDE RECORDS SUMMARY | 2023-08-06 10:01 | External Medical Summary | Summary of Care ---
Author Name Unknown Organization [facility] Address [address] [place] [address] Phone [phone] Care Team Providers Care Steam Service Inspector Name Role Phone Ghislaine Hernandez DO Primary Care Provider [phone] Reason for Visit * Reason Comments Re-Check 6 mo check, [facility] ER in early May, diagnosed with reflux, review medications Encounter Details Date Type Department Care Team (Latest Contact Info) Description 07/04/2023 2:20 PM EDT Office Visit [facility] [address] [place] [address] Ghislaine Hernandez DO [address] [place] [address] Gastroesophageal reflux disease with esophagitis, unspecified whether hemorrhage*; Type 2 diabetes mellitus with hemoglobin A1c goal of less than 7.0% ([facility]); Chronic kidney disease, stage 3b ([facility]); Risk and functional assessment; DM type 2 nursing care encounter ([facility]) Allergies Active Allergy Reactions Criticality Noted Date Comments Bee Venom Edema airway,Edema Other High 01/15/2014 Eye swelled shut Nitrofurantoin 11/08/2018 vomiting Sulfa Antibiotics Hives,Other (Please comment) 01/15/2014 Boil/Acne like sores on abdomen documented as of this encounter (statuses as of 07/10/2023) Medications Medication Sig Dispensed Refills Start Date End Date Status Aspirin 81 MG Tablet Take 1 Tablet by mouth in the morning. 90 Tab 0 09/04/2017 Active cholecalciferol, VIT D3, (VITAMIN D3) 1000 UNITS Tablet Take 1 Tablet by mouth in the morning. 0 04/17/2019 Active Pongo Resume Ultra Blue In Vitro Strip (Glucose Blood)Indications: [...] 7.0% ([facility]) Take 1 tablet by mouth once daily [...] to retial exam per Dr Harrison from [place] 0 4 Discontinue d(Medicatio n List Clean [...] as of this encounter (statuses as of 07/10/2023) Active Problems Problem Noted Date Diagnosed Date [...] as of this encounter (statuses as of 07/10/2023) Resolved Problems Problem Noted Date Diagnosed Date [...] as of this encounter (statuses as of 07/10/2023) Immunizations Name Administration Dates Next Due COVID-19 [...] calluses yourself. Talk to your doctor or command post superintendent (a doctor who specializes in foot care) [...] the area doesnt appear to be healing. [id number] [employer], [address] [place] [address], [place] [address]. All rights reserved. This information is not intended as a substitute for professional medical care. Always follow your healthcare professional's instructions. documented in this encounter Progress Notes * Mary Ghislaine Amita, DO - 07/04/2023 2:24 PM EDT Subjective: Stephanie Mccauley is a 72 year old female. Chief Complaint Patient presents with Re-Check 6 mo check, [facility] ER in early May, diagnosed with reflux, [...] Frequency Provider Last Rate Last Admin Faricimab-svoa ([facility]) intravitreal inj 6 mg 6 mg Intravitreal PRN Nitish Crooks DO 6 mgat 03/28/23 1557 ROPivacaine (Naropin) inj 1.5 mg 1.5 mg Perineural PRN Nitish Crooks DO 1.5 mg at [id number] Past Medical History: Diagnosis Date BENIGN HYPERTENSION [...] performed by Brent Alcantara MD at ENDOSCOPY [facility] COLONOSCOPY, DIAGNOSTIC (RECTUM) 12/06/2017 diverticulosis, repeat 10 yrs/COLONOSCOPY FLEXIBLE PROXIMAL DIAGNOSTIC performed by Brent Alcantara MD at ENDOSCOPY [facility] EGD, FLEXIBLE, DIAGNOSTIC 12/06/2017 normal bx/ESOPHAGOGASTRODUODENOSCOPY (EGD), FLEXIBLE, TRANSORAL, DIAGNOSTIC performed by Brent Alcantara MD at ENDOSCOPY [facility] EXPLORATION OF ABDOMEN N/A 07/28/2014 EXPLORATORY LAPAROTOMY performed by Janine Waller DO at OR [facility] INJECTION OF EYE DRUG Right 09/15/2014 # 1 Eylea OD, Dr. Crooks INJECTION OF EYE DRUG Left 09/24/2014 # 1 Eylea OS, INJECTION OF EYE DRUG Right 10/15/2014 # 2 Eylea OD, INJECTION OF EYE DRUG Left 10/29/2014 # 2 Eylea OS, Dr. Crooks INJECTION OF EYE DRUG Right 11/11/2014 # 3 Eylea OD, Dr. Crooks INJECTION OF EYE DRUG Left 11/26/2014 # 3 Eylea OS, Dr. Crooks INJECTION OF EYE DRUG Right 12/25/2014 # 1 TRIESENCE OD, Dr. Crooks INJECTION OF EYE DRUG Left 01/07/2015 # 4 Eylea OS, INJECTION OF EYE DRUG Left 02/04/2015 # 1 Triescence OS, INJECTION OF EYE DRUG Right 03/18/2015 # 4 Eylea OD, Dr. Crooks INJECTION OF EYE DRUG Left 04/29/2015 # 5 Eylea OS, INJECTION OF EYE DRUG Left 05/13/2015 # 1 Iluvien OS; Dr. Crooks INJECTION OF EYE DRUG Right 05/19/2015 # 5 Eylea OD, Dr. Crooks INJECTION OF EYE DRUG Right 07/29/2015 # 1 Iluvien OD, Dr. Crooks INJECTION OF EYE DRUG Right 09/09/2015 #6 Eylea OD, Dr Crooks INJECTION OF EYE DRUG Left 09/24/2015 #6 Eylea OS, Dr. Crooks INJECTION OF EYE DRUG Right 10/22/2015 # 7 Eylea OD, Dr. Crooks INJECTION OF EYE DRUG Left 01/06/2016 # 7 Eylea OS, Dr Crooks INJECTION OF EYE DRUG Right 02/03/2016 # 8 Eylea OD, Dr. Crooks INJECTION OF EYE DRUG Left 04/20/2016 # 8 Eylea OS, Dr. Crooks INJECTION OF EYE DRUG Right 05/25/2016 # 9 Eylea OD, INJECTION OF EYE DRUG Right 07/06/2016 # 10 Eylea OD; Dr. Crooks INJECTION OF EYE DRUG Left 08/03/2016 # 9 Eylea OS, Dr. Crooks INJECTION OF EYE DRUG Right 08/18/2016 # 2 Triesence OD, INJECTION OF EYE DRUG Right 10/31/2016 # 11 Eylea OD, Dr Crooks INJECTION OF EYE DRUG Left 12/07/2016 # 10 Eylea OS, Dr Crooks INJECTION OF EYE DRUG Right 01/18/2017 # 12 Eylea OD; Dr. Crooks INJECTION OF EYE DRUG Left 03/29/2017 # 11 Eylea OS, Dr. Crooks INJECTION OF EYE DRUG Right 05/15/2017 # 13 Eylea OD, Dr. Crooks INJECTION OF EYE DRUG Left 06/26/2017 # 12 Eylea OS, Dr Way INJECTION OF EYE DRUG Right 10/05/2017 # 14 Eylea OD, Dr. Crooks INJECTION OF EYE DRUG Left 12/04/2017 # 13 Eylea OS, Dr. Crooks INJECTION OF EYE DRUG Right 02/26/2018 #15 Eylea OD, Dr. Crooks INJECTION OF EYE DRUG Left 04/18/2018 # 14 Eylea OS, Dr. Crooks INJECTION OF EYE DRUG Right 05/02/2018 # 16 Eylea OD, INJECTION OF EYE DRUG Right 06/20/2018 # 17 Eylea OD, Dr. Crooks INJECTION OF EYE DRUG Left 07/03/2018 # 15 Eylea OS, INJECTION OF EYE DRUG Right 08/01/2018 # 18 Eylea OD, Dr. Crooks INJECTION OF EYE DRUG Left 08/15/2018 # 16 Eylea OS, INJECTION OF EYE DRUG Right 10/16/2018 # 19 Eylea OD, Dr. Crooks INJECTION OF EYE DRUG Left 10/24/2018 # 18 Eylea OS, Dr. Crooks INJECTION OF EYE DRUG Right 12/04/2018 # 20 Eylea OD, INJECTION OF EYE DRUG Left 12/18/2018 # 19 Eylea OS, Dr. Crooks INJECTION OF EYE DRUG Right 01/30/2019 # 21 Eylea OD, Dr. Crooks INJECTION OF EYE DRUG Left 02/05/2019 # 20 Eylea OS, Dr. Crooks INJECTION OF EYE DRUG Left 03/19/2019 # 21 Eylea OS, Dr. Crooks INJECTION OF EYE DRUG Right 03/27/2019 # 22 Eylea OD, INJECTION OF EYE DRUG Left 05/06/2019 # 22 Eylea OS, INJECTION OF EYE DRUG Right 05/20/2019 # 23 Eylea OD, Dr. Crooks INJECTION OF EYE DRUG Left 07/01/2019 # 23 Eylea OS, Dr. Crooks INJECTION OF EYE DRUG Right 07/15/2019 # 24 Eylea OD, INJECTION OF EYE DRUG Left 08/20/2019 # 24 Eylea OS, Dr. Crooks INJECTION OF EYE DRUG Right 09/02/2019 # 25 Eylea OD, INJECTION OF EYE DRUG Left 10/08/2019 # 25 Eylea OS, Dr. Crooks INJECTION OF EYE DRUG Right 11/04/2019 # 26 Eylea OD, Dr. Crooks INJECTION OF EYE DRUG Left 12/03/2019 # 26 Eylea OS, Dr. Crooks INJECTION OF EYE DRUG Right 01/08/2020 # 27 Eylea OD, Dr. Crooks INJECTION OF EYE DRUG Left 02/11/2020 # 27 Eylea OS, Dr. Crooks INJECTION OF EYE DRUG Right 03/17/2020 # 28 Eylea OD, Dr. Crooks INJECTION OF EYE DRUG Left 06/01/2020 # 28 Eylea OS, INJECTION OF EYE DRUG Right 06/22/2020 # 29 Eylea OD, INJECTION OF EYE DRUG Left 07/22/2020 # 29 Eylea OS, Dr. Crooks INJECTION OF EYE DRUG Right 08/05/2020 # 30 Eylea OD, INJECTION OF EYE DRUG Left 09/09/2020 # 30 Eylea OS, Dr. Crooks INJECTION OF EYE DRUG Right 09/23/2020 # 31 Eylea OD, INJECTION OF EYE DRUG Left 10/28/2020 #31 Eylea OS, Dr Crooks INJECTION OF EYE DRUG Right 11/11/2020 # 32 Eylea OD, Dr. Crooks INJECTION OF EYE DRUG Left 12/09/2020 # 32 Eylea OS, Dr. Crooks INJECTION OF EYE DRUG Right 01/03/2021 # 33 Eylea OD, INJECTION OF EYE DRUG Left 01/24/2021 # 33 Eylea OS, INJECTION OF EYE DRUG Right 02/15/2021 # 34 Eylea OD, Dr. Crooks INJECTION OF EYE DRUG Left 03/21/2021 # 34 Eylea OS, Dr. Crooks INJECTION OF EYE DRUG Right 04/22/2021 # 35 Eylea OD, Dr. Crooks INJECTION OF EYE DRUG Left 05/12/2021 # 35 Eylea OS, Dr. Crooks INJECTION OF EYE DRUG Right 06/08/2021 # 36 Eylea OD, Dr. Crooks INJECTION OF EYE DRUG Left 07/08/2021 # 36 Eylea OS, Dr. Crooks INJECTION OF EYE DRUG Right 08/15/2021 # 37 Eylea OD, Dr. Crooks INJECTION OF EYE DRUG Left 09/23/2021 # 37 Eylea OS, Dr. Crooks INJECTION OF EYE DRUG Right 10/31/2021 # 38 Eylea OD, Dr. Crooks INJECTION OF EYE DRUG Left 12/20/2021 # 38 Eylea OS, Dr. Crooks INJECTION OF EYE DRUG Right 01/27/2022 # 1 Vabysmo OD, Dr. Crooks INJECTION OF EYE DRUG Left 03/09/2022 # 1 Vabysmo OS, Dr. Crooks INJECTION OF EYE DRUG Right 04/20/2022 # 2 Vabysmo OD, Dr. Crooks INJECTION OF EYE DRUG Left 06/01/2022 # 2 Vabysmo OS, Dr. Crooks INJECTION OF EYE DRUG Right 11/02/2022 # 3 Vabysmo OD, Dr. Crooks INJECTION OF EYE DRUG Left 11/08/2022 # 3 Vabysmo OS, Dr. Crooks INJECTION OF EYE DRUG Left 03/28/2023 # 4 Vabysmo OS, Dr. Crooks INTRA-ADB MASS MORE THN 10 CM GEENA, EXCISION N/A 07/28/2014 EXCISION OR DESTRUCTION ABDOMINAL TUMOR OR CYST OPEN PROCEDURE 10CM OR GREATER performed by Janine Waller DO at OR [facility] LASER SURGERY OF INNER EYE STRANDS Right 01/03/2017 Micropulse Laser OD, Dr. Crooks (consent signed) LASERING OF SECONDARY CATARACT Bilateral [...] OTHER (INFORMATION) Bilateral EYLEA OU CONSENT DR. CROOKS/AURELIANO EXP. 12/09/21 OTHER (INFORMATION) Bilateral EYLEA OU CONSENT DR. CROOKS/AURELIANO EXP. 12/20/22 OTHER (INFORMATION) VABYSMO OU CONSENT SIGNED Dr. Crooks/Aureliano (exp 01-27-23) OTHER (INFORMATION) VABYSMO CONSENT SIGNED EXP04/02/24, DR. CROOKS/AURELIANO REMOVE CATARACT, INSERT LENS PROSTH Right 01/13/2015 OD REPAIR/GRAFT SCLERAL LESION Right 11/17/2022 REPAIR SCLERAL STAPHYLOMA WITH GRAFT performed by Carolina Alejandra MD at OR [facility] TOTAL ABD HYSTERECTOMY W/WO REMOVAL OF TUBE(S) N/A 07/28/2014 TOTAL ABDOMINAL HYSTERECTOMY WITH OR WITHOUT TUBES AND OVARIES performed by Janine Waller DO at OR [facility] TREATMENT OF EXTENSIVE RETINOPATHY, PHOTOCOAGULATION Right 01/03/2023 Laser OD, Dr. Crooks TREATMENT OF EXTENSIVE RETINOPATHY, PHOTOCOAGULATION Left 01/24/2023 Laser treatment OS, Dr. Crooks TREATMENT OF EXTENSIVE RETINOPATHY, PHOTOCOAGULATION Right 01/31/2023 Laser treatment OD, Dr. Crooks Review of patient's allergies indicates: Allergen Reactions [...] 7.0% ([facility]) - HEMOGLOBIN A1C; Future; Expected date: 07/04/2023 - PHOSPHORUS; Future; Expected date: 07/04/2023 - ALBUMIN / CREATININE RATIO, URINE; Future; Expected date: 07/04/2023 - BASIC METABOLIC PANEL; Future; Expected date: 07/04/2023 Chronic kidney disease, stage 3b ([facility]) - PHOSPHORUS; Future; Expected date: 07/04/2023 - [...] Description 4 1:15 PM EDT Office Visit [facility] [address] [place] [address] Carolina Ramirez MD [address] [place] [address] 4 2:30 PM EDT Office Visit Ophthalmology, [facility] [address] [facility] [place] [address] Nitish Crooks DO [address] [facility] [place] [address] 4 11:15 AM EDT Hospital Encounter ENDO [facility], Endoscopy Room [facility] [address] [place] [phone] Brent Alcantara MD [address] [place] [address] 4 11:15 AM EDT - 4 11:45 AM EDT Surgery ENDO [facility], Endoscopy Room [facility] [address] [place] [phone] Brent Alcantara MD [address] [place] [address] ESOPHAGOGASTRODUODENOSCOPY (EGD), FLEXIBLE, TRANSORAL, DIAGNOSTIC 4 9:00 AM EDT Imaging Radiology [address] [place] [address] 4 1:00 PM EDT Office Visit [facility] [address] [place] [address] Ghislaine Hernandez, DO [address] [place] [address] 5 1:00 PM EDT Office Visit [facility] [address] [place] [address] Ghislaine Hernandez, DO [address] [place] [address] Scheduled Procedures Name Priority Associated Diagnoses Date/Ti [...] 07/11/2022, Additional history exists B-12 03/30/2024 03/30/2023, 100 12/2022, 04/28/2022, Additional history exists CKD HGB USE SMARTSET 39007 04/06/202404/06, 04/06/2023, 03/30/2023, Additional history exists Fecal Occult Blood Test 04/11/2024 04/11/2023, 10/05 DXA Scan 04/30/2024 04/30/2017 CKD PHOS USE SMARTSET 38710 07/03/202406/08, 07/11/2022, 06/14/2021, Additional history exists Diabetic [...] this encounter Medical Devices Implanted Type Area Casino Worker Device Identifier Shelf Expiration Date Model / Serial / Lot Shunt Tube [facility] - [id number] - [id number] Implanted:Qty: 1 on 11/17/2022 by Carolina Ramirez MD at OR [facility] Right: Eye [employer] [id number] 09/17/2024 7 / [id number] / [id number] Graft [place] Cornea Split - [id number] Implanted:Qty: 1 on 11/17/2022 by Carolina Ramirez MD at OR [facility] Right: Eye [employer] 09/11/2024 O-1 / [id number] / [id number] documented as of this encounter Results * ALBUMIN / CREATININE RATIO, URINE (07/06/2023 9:30 AM EDT) Albumin, Random Urine <1.20 mg/dL 07/06/2023 4:03 PM EDT LABORATORY [facility] Creatinine, Random Urine 32 mg/dL 07/06/2023 4:03 PM EDT LABORATORY [facility] Albumin / Creatinine Ratio, Urine Uninterpretable Albumin/Creatinine ratio due to very low albumin and creatinine values. <30 mg/g Creat 07/06/2023 4:03 PM EDT LABORATORY [facility] Urine Urine specimen obtained by clean catch procedure / Unknown Non-blood Collection / Unknown 07/06/2023 9:30 AM EDT 07/06/2023 9:30 AM EDT Narrative LABORATORY [facility] - 07/06/2023 4:03 PM EDT Normal: <30 mg/g creatinine High: 30-300 mg/g creatinine Very High: >300 mg/g creatinine Nephrotic: >2200 mg/g creatinine Ghislaine Hernandez DO LAB URINE ORDERABLE S LABORATORY [facility] [address] [place] [address] * (ABNORMAL) BASIC METABOLIC PANEL (07/04/2023 3:02 PM EDT) BUN 58(H) 6 - 20 mg/dL 07/04/2023 4:13 PM EDT LABORATORY [place] 57-10 Creatinine 1.8(H) 0.5 - 1.0 mg/dL 07/04/2023 4:13 PM EDT LABORATORY [place] 57-10 Estimated Glomerular Filtration Rate 30(L) >=60 mL/min 07/04/2023 4:13 PM EDT LABORATORY [place] 57-10 Comment:eGFR is calculated b ased on the CKD-EPI 2020 equation Sodium 138 135 - 146 mmol/L 07/04/2023 4:13 PM EDT LABORATORY [place] 57-10 Potassium 4.4 3.5 - 5.1 mmol/L 07/04/2023 4:13 PM EDT LABORATORY [place] 57-10 Chloride 108(H) 98 - 107 mmol/L 07/04/2023 4:13 PM EDT LABORATORY [place] 57-10 CO2 19(L) 22 - 32 mmol/L 07/04/2023 4:13 PM EDT LABORATORY [place] 57-10 Anion Gap 11 7 - 15 mmol/L 07/04/2023 4:13 PM EDT LABORATORY [place] 57-10 Glucose 123(H) 70 - 120 mg/dL 07/04/2023 4:13 PM EDT LABORATORY [place] 57-10 Calcium 9.3 8.4 - 10.2 mg/dL 07/04/2023 4:13 PM EDT LABORATORY [place] 57-10 Blood Venous blood specimen / Unknown Venipuncture / Unknown 07/04/2023 3:02 PM EDT 07/04/2023 3:02 PM EDT Ghislaine Hernandez DO LAB BLOOD ORDERABLE S LABORATORY [place] [address] [place] [address] * PHOSPHORUS (07/04/2023 3:02 PM EDT) Phosphorus 4.3 2.5 - 4.8 mg/dL 07/05/2023 4:19 AM EDT LABORATORY [facility] Blood Venous blood specimen / Unknown Venipuncture / Unknown 07/04/2023 3:02 PM EDT 07/04/2023 3:02 PM EDT Ghislaine Hernandez DO LAB BLOOD ORDERABLE S Performing Organization Address [facility] Co de Phone Number LABORATORY [facility] [address] [place] [address] * (ABNORMAL) HEMOGLOBIN A1C (07/04/2023 3:02 PM EDT) Hemoglobin A1C 7.3(H) 4.0 - 5.6 % 07/05/2023 4:34 AM EDT LABORATORY [facility] Comment:The use of HbA1c to monitor glycemic status is based on normal hemoglobin and HbA composition. This test should not be used in patients with abnormal hemoglobin that affects the half life of the red blood cell or the in vivo glycation rates. Estimated Average Glucose 163(H) <126 mg/dL 07/05/2023 4:34 AM EDT LABORATORY [facility] Blood Venous blood specimen / Unknown Venipuncture / Unknown 07/04/2023 3:02 PM EDT 07/04/2023 3:02 PM EDT Ghislaine Hernandez DO LAB BLOOD ORDERABLE S Performing Organization Address City/[facility]/ZIP Co de Phone Number LABORATORY [facility] [address] [place] [address] documented in this encounter Visit Diagnoses Diagnosis Gastroesophageal reflux disease with esophagitis, unspecified whether hemorrhage- Primary Type 2 diabetes mellitus with hemoglobin A1c goal of less than 7.0% (HCC) Chronic kidney disease, stage 3b (HCC) Risk and functional assessment Screening for unspecified condition DM type 2 nursing care encounter (HCC) Type II or unspecified type diabetes mellitus without mention of complication, not stated as uncontrolled GERD (gastroesophageal reflux disease) Esophageal reflux documented in this encounter Advance Directives Latest Code Status on File Code Status Date Activated Date Inactivated Comments Full Code 07/28/2014 3:21 PM 07/31/2014 4:03 PM This order reflects the patients wishes and were consensually agreed upon. Care Teams Steam Service Inspector Relationship Specialty Start Date End Date Ghislaine Hernandez DO [address] [place] [address] PCP - General Family Medicine 07/09/14 documented as of this encounter"
--- OUTSIDE RECORDS SUMMARY | 2023-08-06 10:01 | External Medical Summary ---
Author Name Unknown Address Unknown Organization K01:[facility] [address] [place] [address] Laboratory Report Ordering Provider Test Date Status MELANIE RUIZ 07/04/2023 15:02:06 Final Observation Date Value Abnormality Reference (Units ) Status Phosphate 07/04/2023 15:02:06 4.3 2.5-4.8 (m g/dL) Final Performing Location [facility] - [address] [place] [address]
--- OUTSIDE RECORDS SUMMARY | 2023-08-06 10:02 | External Medical Summary | Summary of Care ---
Author Name Unknown Organization [facility] Address [address] [place] [address] Phone [phone] Care Team Providers Care Wind Projects Supervisor Name Role Phone Ghislaine Hernandez DO Primary Care Provider [phone] Reason for Visit * Reason Onset Date Comments Test Results Imaging Study 06/09/2023 Encounter Details Date Type Department Care Team (Late st Contact Info) Description 06/09/2023 Telephone Family Practice [facility] [address] [place] [address] Ghislaine Hernandez DO [address] [place] [address] Test Results Imaging Study Allergies Active Allergy Reactions Criticality Noted Date Comments Bee Venom Edema airway,Edema Other High 01/15/2014 Eye swelled shut Nitrofurantoin 11/08/2018 vomiting Sulfa Antibiotics Hives,Other (Please comment) 01/15/2014 Boil/Acne like sores on abdomen documented as of this encounter (statuses as of 06/13/2023) Medications Medication Sig Dispensed Refills Start Date [...] to retial exam per Dr [place] [address] Active Atenolol 25 MG Oral Tablet (Tenormin)Indications [...] as of this encounter (statuses as of 06/13/2023) Active Problems Problem Noted Date Diagnosed Date [...] as of this encounter (statuses as of 06/13/2023) Resolved Problems Problem Noted Date Diagnosed Date [...] as of this encounter (statuses as of 06/13/2023) Immunizations Name Administration Dates Next Due COVID-19 mRNA, LNP-s, No Pre serve, 2-Dose Series ([employer]) 09/03/2020,08/13/2020 Pneumococcal Conjugate Vacc, 13 Valent (Prevnar) [...] encounter Miscellaneous Notes * Telephone Encounter - Delma Potter LPN - 06/13/2023 2:08 PM EST Patient aware and verbalized understanding, will comply. * Telephone Encounter - Guillermina Lange LPN - 06/13/2023 1:44 PM EST LMOM for pt to return call * Telephone Encounter - Sita Bernal MED ASSIST - 06/11/2023 8:20 AM EST message left for patient to call back. * Telephone Encounter - Ghislaine Hernandez DO - 06/09/2023 8:07 AM EST Please call patient - her echocardiogram was good, heart appears very normal. Would ask her to follow up in the office if any worsening lower extremity swelling documented in this encounter Plan of Treatment Upcoming Encounters Date Type Department Care Team (Late st Contact Info) Description 06/15/2023 12:00 PM EST Office Visit [facility] Eye [facility] [address] [place] [address] Carolina Ramirez MD [address] [facility] [place] [address] 07/04/2023 2:20 PM EDT Office Visit [facility] [address] [place] [address] Ghislaine Hernandez, [address] [place] [address] 07/31/2023 2:30 PM EDT Office Visit Ophthalmology, [facility] [address] [place] [address] Nitish Crooks, DO [address] [place] [address] 10/01/2023 9:00 AM EDT Imaging Radiology [facility] [address] [place] [address] 01/08/2024 1:00 PM EDT Office Visit [facility] [address] [place] [address] Ghislaine Hernandez DO [address] [place] [address] Scheduled Procedures Name Priority Associated Diagnoses Date/Ti [...] Additional history exists CKD PHOS USE SMARTSET 56291 07/12/2023 04/0 07/2022, 06/14/2021, 06/04/2020, Additional history exists HbA1c 07/17/2023 01/15/2023, 04/0 07/2022, 12/21/2021, Additional history exists Mammogram 09/28/2023 09/27/2022, 09/08, 09/26/2021, Additional history exists GFR 10/06/2023 04/06/2023, 03/10, 03/20/2023, Additional history exists Diabetic Eye Exam 11/14/2023 11/13/2022, , 11/13/2022, Additional history exists B-12 03/30/2024 03/30/2023, 10/0 12/2022, 04/28/2022, Additional history exists CKD HGB USE SMARTSET 53211 04/06/202404/06, 04/06/2023, 03/30/2023, Additional history exists Fecal [...] this encounter Medical Devices Implanted Type Area Supervisor Billposting Device Identifier Shelf Expiration Date Model / Serial / Lot Shunt Tube [facility] - [id number] - [id number] Implanted:Qty: 1 on 11/17/2022 by Carolina Ramirez MD at OR [facility] Right: Eye [employer] [id number] 09/17/2024 MIKE7 / [id number] / [id number] Graft [place] Cornea Split - [id number] Implanted:Qty: 1 on 11/17/2022 by Carolina Ramirez MD at OR [facility] Right: Eye [employer] 09/11/2024 O-1 / [id number] / [id number] documented as of this encounter Advance Directives Latest Code Status on File Code Status Date Activated Date Inactivated Comments Full Code 07/28/2014 3:21 PM 07/31/2014 4:03 PM This order reflects the patients wishes and were consensually agreed upon. Care Teams Wind Projects Supervisor Relationship Specialty Start Date End Date Ghislaine Hernandez DO [address] [place] [address] PCP - General Family Medicine 07/09/14 documented as of this encounter
--- OUTSIDE RECORDS SUMMARY | 2023-08-06 10:02 | External Medical Summary | Summary of Care ---
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, unspecified proliferative retinopathy type (HCC) Allergies Active Allergy Reactions Criticality Noted Date Comments Bee Venom Edema airway,Edema Other High 01/15/2014 Eye swelled shut Nitrofurantoin 11/08/2018 vomiting Sulfa Antibiotics Hives,Other (Please comment) 01/15/2014 Boil/Acne like sores on abdomen documented as of this encounter (statuses as of 06/15/2023) Medications Medication Sig Dispensed Refills Start Date [...] to retial exam per Dr Harrison from [place] [address] Active Atenolol 25 MG Oral Tablet (Tenormin)Indications [...] goal of less than 7.0% ([facility]) Take 1 tablet by mouth once daily [...] as of this encounter (statuses as of 06/15/2023) Active Problems Problem Noted Date Diagnosed Date [...] as of this encounter (statuses as of 06/15/2023) Resolved Problems Problem Noted Date Diagnosed Date [...] as of this encounter (statuses as of 06/15/2023) Immunizations Name Administration Dates Next Due COVID-19 mRNA, LNP-s, No Pre serve, 2-Dose Series ([email or web address]) 09/03/2020,08/13/2020 Pneumococcal Conjugate Vacc, 13 Valent (Prevnar) [...] Sign Reading Time Taken Comments Blood Pressure 146/51 06/15/2023 12:10 PM EST Pulse 120 06/15/2023 12:10 PM EST Temperature - - Respiratory Rate - - Oxygen Saturation - - Inhaled Oxygen Concentration - - Weight - - Height - - Body Mass Index - - documented in this encounter Patient Instructions * Patient Instructions* Carolina Ramirez MD - 06/15/2023 12:00 PM EST STOP THE PILL (ACETAZOLAMIDE) 3 DAYS PRIOR TO YOUR APPOINTMENT WITH ME documented in this encounter Progress Notes * Carolina Ramirez MD - 06/15/2023 8:30 AM EST Summary of patient's history 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 06/15/23 Here for follow up and possible MOTOR BUILDER WINDER procedure. No change in vision. Exam Base Eye Exam Visual Acuity (Snellen - Linear) Right Left Dist sc 20/50 20/80 Tonometry (iCare, 12:21 PM) Right Left Pressure 11 15 Pachymetry (01/13/2022) Right Left Thickness 546 556 Pupils Shape React APD Right Round Minimal None Left Round Minimal None Visual Herman (Counting fingers) Right Left Restrictions Total inferior nasal deficiency Total inferior temporal deficiency Extraocular Movement Right Left Full Full Neuro/Psych Oriented x3: Yes Mood/Affect: Normal Slit Lamp and Fundus Exam External Exam Right Left External Normal Normal Slit Lamp Exam Right Left Lids/Lashes Normal Normal Conjunctiva/Sclera 1+ injection, scattered roseanne, tube well covered White and quiet Cornea Clear Clear Anterior Chamber rare cell, tube in sulcus Deep and quiet Iris Round and reactive, subtle NVI Round and reactive Lens PCIOL PCIOL Vitreous Normal Normal [place] visual field 24-2 - 01/13/2022 OD: good reliability. MD -9.46. PSD 8.89. SAD>IAD. Stable to scanned field from 2018. OS: good reliability. MD -10.31. PSD 9.10. IAD>SAD. Stable to scanned field from 2018. [place] visual field 24-2 - 11/13/2022 OD: [...] # Neovascular glaucoma OD S/p sulcus Ahmed IOP has been great for 2 months, she is now taking acetazolamide once a day (half the dose) Discussed option of MOTOR BUILDER WINDER or MP-MOTOR BUILDER WINDER to help blunt hypertensive phase, with the potential risk of worsening CME again. Will re-check next visit # Moderate NPDR OU with CME OU S/p multiple injections including vabysmo x3 starting 03/2022. Continue glycemic control Follows with Dr Crooks # Pseudophakia OU Vision stable Monitor Return for 1 month IOP check. AVEL Rollins scribing for and in the presence of [...] 2 times a day Rocklatan at bedtime Acetazolamide (Diamox) 500 mg pills: take 1 pill by mouth daily. Stop 3 days prior to next appointment documented in this encounter Nursing Notes * Gavin Sethi, VARUN - 06/15/2023 12:13 PM EST Stephanie Mccauley presents for strategic account director LASER. Last Visit: 04/19/2023 (in office), Visit date not found (telemedicine) She currently states no change in vision. Current Ophthalmic Medications: Brimonidine tartrate/timolol 0.2-0.5% op soln 1 gtt both eyes BID Dorzolamide HCL 2% op soln 1 gtt both eyes BID Vision and IOP by air tonometry if done can be found in the ophth exam. ;AU Patient was instructed to not get up [...] Description 07/04/2023 2:20 PM EDT Office Visit [facility] [address] [address] Ghislaine Hernandez, DO [address] [place] [address] 07/31/2023 2:30 PM EDT Office Visit Ophthalmology, [facility] [address] [address] Nitish Crooks, DO [address] [place] [address] 10/01/2023 9:00 AM EDT Imaging Radiology [facility] 1st [facility] [address] [address] 01/08/2024 1:00 PM EDT Office Visit [facility] [address] [address] [address] Ghislaine Hernandez, DO [address] [place] [address] Scheduled Procedures Name Priority Associated Diagnoses Date/Ti [...] Additional history exists CKD PHOS USE SMARTSET 64239 07/12/2023 04/0 07/2022, 06/14/2021, 06/04/2020, Additional history exists HbA1c 07/17/2023 01/15/2023, 04/0 07/2022, 12/21/2021, Additional history exists Mammogram 09/28/2023 09/27/2022, 09/08, 09/26/2021, Additional history exists GFR 10/06/2023 04/06/2023, 03/10, 03/20/2023, Additional history exists Diabetic Eye Exam 11/14/2023 11/13/2022, , 11/13/2022, Additional history exists B-12 03/30/2024 03/30/2023, 10/0 12/2022, 04/28/2022, Additional history exists CKD HGB USE SMARTSET 64918 04/06/202404/06, 04/06/2023, 03/30/2023, Additional history exists Fecal [...] this encounter Medical Devices Implanted Type Area Steel Inspector Device Identifier Shelf Expiration Date Model / Serial / Lot Shunt Tube Glaucoma Ahmed Fp7 - [id number] - [id number] Implanted:Qty: 1 on 11/17/2022 by Carolina Ramirez MD at [facility] Right: Eye NEW [employer] [id number] 09/17/2024 FP7 / [id number] / [id number] Graft [place] Cornea Split - [id number] Implanted:Qty: 1 on 11/17/2022 by Carolina Ramirez MD at [facility] Right: Eye [employer] 09/11/2024 O-HH1 / [id number] / [id number] documented as of this encounter Visit Diagnoses Diagnosis Neovascular glaucoma of right eye, indeterminate stage- Primary 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 Care Teams Client Experience Specialist Relationship Specialty Start Date End Date Ghislaine Hernandez DO [address] [place] [address] [place] [address] PCP - General Family Medicine 07/09/14 documented as of this encounter
--- OUTSIDE RECORDS SUMMARY | 2023-08-06 10:02 | External Medical Summary | Summary of Care ---
Author Name Unknown Organization [facility] Address [address] [place] [address] Phone [phone] Care Team Providers Care Vice President Safety Name Role Phone Ghislaine Hernandez DO Primary Care Provider [phone] Reason for Visit * Reason Onset Date Comments Advice 03/09/2023 Encounter Details Date Type Department Care Team (Late st Contact Info) Description 03/09/2023 Telephone Family Practice [facility] [address] [place] [address] Ghislaine Hernandez DO [address] [place] [address] Advice Allergies Active Allergy Reactions Criticality Noted Date Comments Bee Venom Edema airway,Edema Other High 01/15/2014 Eye swelled shut Nitrofurantoin 11/08/2018 vomiting Sulfa Antibiotics Hives,Other (Please comment) 01/15/2014 Boil/Acne like sores on abdomen documented as of this encounter (statuses as of 06/08/2023) Medications Medication Sig Dispensed Refills Start Date [...] 06/28/2022 Active Lisinopril 5 MG Oral Tablet (Prinivil)Indications: HTN, goal below 130/80 Take 1 tablet by mouth once daily 90 Tablet 1 01/25/2023 Active TO GO acetaZOLAMIDE OR Take 500 mg by mouth. Twice a day since Sunday afternoon; prior to retial exam per Dr Harrison from [place] [address] Active Atenolol 25 MG Oral Tablet (Tenormin)Indications: [...] once daily 45 Tablet 1 02/26/2023 Active documented as of this encounter (statuses as of 06/08/2023) Active Problems Problem Noted Date Diagnosed Date [...] as of this encounter (statuses as of 06/08/2023) Resolved Problems Problem Noted Date Diagnosed Date [...] as of this encounter (statuses as of 06/08/2023) Immunizations Name Administration Dates Next Due COVID-19 mRNA, LNP-s, No Pre serve, 2-Dose Series ([employer]) 09/03/2020,08/13/2020 Pneumococcal Conjugate Vacc, 13 Valent (Prevnar) [...] encounter Miscellaneous Notes * Telephone Encounter - Agnes Bernardo LPN - 03/09/2023 10:08 AM EST Called pt informed of message. She verbalize understanding Canceled appt for tomorrow. She will go to [facility] as advised. 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 For a couple days she has been experiencing left sided pain, this is how her infections have started in the past. She is also having increased swelling in her legs, she doesn't think this is due to possible infection could be from sleeping in chair, instead of bed. She is on lasix. Scheduled appt at weekend clinic with Dr Abbott documented in this encounter Plan of Treatment Upcoming Encounters Date Type Department Care Team (Late st Contact Info) Description 06/15/2023 12:00 PM EST Office Visit [facility] [address] [facility] [place] [address] Carolina Ramirez MD [address] [facility] [place] [address] 07/04/2023 2:20 PM EDT [facility] [address] [place] [address] Ghislaine Hernandez, DO [address] [place] [address] 07/31/2023 2:30 PM EDT Office Visit Ophthalmology, [facility] [address] [place] [address] Nitish Crooks, DO [address] [place] [address] 10/01/2023 9:00 AM EDT Imaging Radiology [facility] 1st [facility] [address] [place] [address] 01/08/2024 1:00 PM EDT [facility] [address] [place] [address] Ghislaine Hernandez, DO [address] [place] [address] Scheduled Procedures Name Priority Associated Diagnoses Date/Ti [...] Additional history exists CKD PHOS USE SMARTSET 90305 07/12/2023 04/0 07/2022, 06/14/2021, 06/04/2020, Additional history exists HbA1c 07/17/2023 01/15/2023, 04/0 07/2022, 12/21/2021, Additional history exists Mammogram 09/28/2023 09/27/2022, 09/08, 09/26/2021, Additional history exists GFR 10/06/2023 04/06/2023, 03/10, 03/20/2023, Additional history exists Diabetic Eye Exam 11/14/2023 11/13/2022, , 11/13/2022, Additional history exists B-12 03/30/2024 03/30/2023, 10/12/2022, 04/28/2022, Additional history exists CKD HGB USE SMARTSET 36067 04/06/202404/06, 04/06/2023, 03/30/2023, Additional history exists Fecal [...] this encounter Medical Devices Implanted Type Area Malted Milk Masher Device Identifier Shelf Expiration Date Model / Serial / Lot Shunt Tube [facility] - [id number] - [id number] Implanted:Qty: 1 on 11/17/2022 by Carolina Ramirez MD at [facility] Right: Eye NEW [employer] [id number] 09/17/2024 MIKE7 / [id number] / [id number] Graft [place] Cornea Split - [id number] Implanted:Qty: 1 on 11/17/2022 by Carolina Ramirez MD at [facility] Right: Eye [employer] 09/11/2024 O-1 / [id number] / [id number] documented as of this encounter Advance Directives Latest Code Status on File Code Status Date Activated Date Inactivated Comments Full Code 07/28/2014 3:21 PM 07/31/2014 4:03 PM This order reflects the patients wishes and were consensually agreed upon. Care Teams Vice President Safety Relationship Specialty Start Date End Date Ghislaine Hernandez DO [address] [place] [address] PCP - General Family Medicine 07/09/14 documented as of this encounter
--- OUTSIDE RECORDS SUMMARY | 2023-08-06 10:02 | External Medical Summary | Summary of Care ---
Author Name Unknown Organization [facility] Address [address] [place] [address] Phone [phone] Care Team Providers Care Fusing Machine Feeder Name Role Phone Ghislaine Hernandez Primary Care Provider [phone] Reason for Visit * Reason Onset Date Comments Appointment 06/15/2023 Return for 1 mon IOP check. Check out comments: OK to use a post-op slot Encounter Details Date Type Department Care Team (Late st Contact Info) Description 06/15/2023 Telephone [facility] [address] [place], [place] [phone] Carolina Ramirez MD [address] [place], [place] [id number] Appointment (Return for 1 month IOP check.... Allergies Active Allergy Reactions Criticality Noted Date [...] to retial exam per Dr Harrison from [place] [address] Active Atenolol 25 MG Oral Tablet (Tenormin)Indications [...] A1c goal of less than 7.0% ([facility]) Take 1 tablet by mouth once [...] mRNA, LNP-s, No Pre serve, 2-Dose Series ([employer]) 09/03/2020,08/13/2020 Pneumococcal Conjugate Vacc, 13 Valent (Prevnar) [...] encounter Miscellaneous Notes * Telephone Encounter - Bee Springer OSA - 06/15/2023 12:50 PM EST Hi, Pt was here to see Dr. Camejo and needs Return for 1 month IOP check. Check out comments: OK to use a post-op slot I saw some 1 day/1 week post ops but I'm not sure how many she needs to still have for me to be allowed to take one :) If you could help or show me how to know which ones to take that would be great! Bee Berumen documented in this encounter Plan of Treatment Upcoming Encounters Date Type Department Care Team (Late st Contact Info) Description 07/04/2023 2:20 PM EDT Office Visit [facility] [address] [place] [address] Ghislaine Hernandez, DO [address] [place] [address] 07/31/2023 2:30 PM EDT Office Visit Ophthalmology, [facility] [address] [place] [address] Nitish Crooks, DO [address] [place] [address] 10/01/2023 9:00 AM EDT Imaging Radiology [facility] 1st [facility] [address] [place] [address] 01/08/2024 1:00 PM EDT Office Visit [facility] [address] [place] [address] Ghislaine Hernandez, DO [address] [place] [address] Scheduled Procedures Name Priority Associated Diagnoses Date/Ti [...] Additional history exists CKD PHOS USE SMARTSET 12819 07/12/20230 07/2022, 06/14/2021, 06/04/2020, Additional history exists HbA1c 07/17/2023 01/15/2023, 040 07/2022, 12/21/2021, Additional history exists Mammogram 09/28/2023 09/27/2022, 09/08, 09/26/2021, Additional history exists GFR 10/06/2023 04/06/2023, 03/10, 03/20/2023, Additional history exists Diabetic Eye Exam 11/14/2023 11/13/2022, , 11/13/2022, Additional history exists B-12 03/30/2024 03/30/2023, 1012/2022, 04/28/2022, Additional history exists CKD HGB USE SMARTSET 93839 04/06/202404/06, 04/06/2023, 03/30/2023, Additional history exists Fecal [...] this encounter Medical Devices Implanted Type Area Program Management Manager Device Identifier Shelf Expiration Date Model / Serial / Lot Shunt Tube Glaucoma Ahmed Fp7 - [id number] - [id number] Implanted:Qty: 1 on 11/17/2022 by Carolina Ramirez MD at [facility] Right: Eye [employer] [id number] 09/17/2024 FP7 / [id number] / [id number] Graft [place] Cornea Split - [id number] Implanted:Qty: 1 on 11/17/2022 by Carolina Ramirez MD at [facility] Right: Eye [employer] 09/11/2024 O-1 / [id number] / [id number] documented as of this encounter Advance Directives Latest Code Status on File Code Status Date Activated Date Inactivated Comments Full Code 07/28/2014 3:21 PM 07/31/2014 4:03 PM This order reflects the patients wishes and were consensually agreed upon. Care Teams Fusing Machine Feeder Relationship Specialty Start Date End Date Ghislaine Hernandez DO [address] [facility] [place] [address] PCP - General Family Medicine 07/09/14 documented as of this encounter
[2023-08-06 10:03] LABS: Basophils # (auto) 0.03 K/uL (0.00-0.20); Basophils % (auto) 0.3 %; Eosinophils # (auto) 0.72 K/uL (0.00-0.50); Eosinophils % (auto) 8.3 %; Hematocrit (blood only) 30.1 % (37.0-47.0); Hemoglobin 9.6 g/dl (12.0-16.0); Immature Granulocytes # (auto) 0.03 K/uL (0.01-0.20); Immature Granulocytes % (auto) 0.3 %; Lymphocytes # (auto) 1.53 K/uL (1.20-3.40); Lymphocytes % (auto) 17.7 %; Mean Corpuscular Hemoglobin 27.9 pg (25.0-34.0); Mean Corpuscular Hgb Conc 31.9 g/dL (32.0-36.0); Mean Corpuscular Volume 87.5 fL (80.0-100.0); Mean Platelet Volume 9.5 fL (9.4-12.4); Monocytes % (auto) 8.1 %; Neutrophils # (auto) 5.62 K/uL (1.40-6.50); Neutrophils % (auto) 65.3 %; Platelet Count 265 K/uL (130-400); RDW Coefficient of Variation 13.9 % (11.5-14.5); RDW Standard Deviation 44.1 fL (36.4-46.3); Red Blood Count 3.44 M/uL (4.20-5.40); White Blood Count 8.63 K/ul (4.8-10.8)
--- OUTSIDE RECORDS SUMMARY | 2023-08-06 10:03 | External Medical Summary | Summary of Care ---
Author Name Unknown Organization [facility] Address [address] [place] [address] Phone [phone] Care Team Providers Care Furniture Inspector Name Role Phone Ghislaine Hernandez DO Primary Care Provider [phone] Reason for Visit * Reason Onset Date Comments Advice 05/08/2023 Encounter Details Date Type Department Care Team (Late st Contact Info) Description 05/08/2023 Telephone Family Practice [facility] [address] [place] [address] Ghislaine Hernandez DO [address] [place] [address] Advice Allergies Active Allergy Reactions Criticality Noted Date Comments Bee Venom Edema airway,Edema Other High 01/15/2014 Eye swelled shut Nitrofurantoin 11/08/2018 vomiting Sulfa Antibiotics Hives,Other (Please comment) 01/15/2014 Boil/Acne like sores on abdomen documented as of this encounter (statuses as of 05/21/2023) Medications Medication Sig Dispensed Refills Start Date [...] to retial exam per Dr Harrison [place] [address] Active Atenolol 25 MG Oral Tablet (Tenormin)Indication [...] A1c goal of less than 7.0% ([facility]) Take 1 tablet by mouth once daily 90 Tablet 3 02/23/2023 Active glipiZIDE 5 MG Oral Tablet (Glucotrol) Take 1/2 (one-half) tablet by mouth once daily 45 Tablet 1 02/26/2023 Active Torsemide 20 MG Oral Tablet (Demadex)Indications :Bilateral lower extremity edema Take 1 Tablet by mouth in the morning. 90 Tablet 1 03/20/2023 Active Additional Information Patient not taking.Reported on 05/03/2023 Potassium Chloride ER 20 MEQ Oral Tablet Extended ReleaseIndications:B ilateral lower extremity edema Take 1 Tablet by mouth in the morning. When taking torsemide (diuretic).. 30 Tablet 1 03/26/2023 Active Folic Acid 1 MG Oral TabletIndications:Fo [...] before bedtime. 60 Capsule 0 04/19/2023 Active Hospital, Clinic, or Other Facility Administered [...] as of this encounter (statuses as of 05/21/2023) Active Problems Problem Noted Date Diagnosed Date [...] as of this encounter (statuses as of 05/21/2023) Resolved Problems Problem Noted Date Diagnosed Date [...] as of this encounter (statuses as of 05/21/2023) Immunizations Name Administration Dates Next Due COVID-19 [...] encounter Miscellaneous Notes * Telephone Encounter - Sita Bernal MED ASSIST - 05/21/2023 9:53 AM EST Appt scheduled 06/05 * Telephone Encounter - Lul Adames OSA - 05/18/2023 8:39 AM EST 2nd attempt to reach pt to schedule ER f/u, LMOM for pt to call and schedule * Telephone Encounter - Lul Adames OSA - 05/16/2023 12:58 PM EST LMOM for pt to call and schedule an ER f/u visit * Telephone Encounter - Guillermina Lange LPN - 05/16/2023 12:48 PM EST Appears patient was in ER on 05/10. Will need ER follow up * Telephone Encounter - Lul Adames OSA - 05/15/2023 8:16 AM EST 2nd attempt, LMOM for pt to schedule acute appt * Telephone Encounter - Lul Adames OSA - 05/10/2023 11:53 AM EST LMOM for pt to schedule OV. At time of the call, there was only one opening tomorrow. I told pt to call first thing tomorrow morning to schedule for weekend clinic in case of no openings tomorrow * Telephone Encounter - Chary Carlson LPN - 05/09/2023 1:53 PM EST Tomorrow? * Telephone Encounter - Lul Adames OSA - 05/09/2023 10:52 AM EST No same-day openings at any of the local clinics with any providers. Please advise * Telephone Encounter - Adia Spears RN - 05/08/2023 5:21 PM EST Called pt and gave message. Please assist with scheduling. * Telephone Encounter - Ghislaine Hernandez DO - 05/08/2023 4:23 PM EST Please call Okay to take pepcid (famotidine) 20mg BID Cont fluids, bland diet Rec OV for eval If pain is severe or feels very week needs to go to the ED * Telephone Encounter - Frances Emerson LPN - 05/08/2023 3:13 PM EST Patient is calling. Very tired since last week. No appetite. Coughing phlegm. Stomach bothered her.This week it is worse. Not like indigestion. Last 2 days woke up and felt like she has going to vomit. Had lots of acid. Pain is all over the stomach. It comes and goes. Gets a pain in the bone between her breasts. It is off and on and only in the morning. Not constant. Has been off and on for a week. Rated abdominal pain as a 6 or 7 out of 10. Eased up a little over the weekend, but yesterday and today it is back. Eating a bland diet. Not a lot. No fried foods. Would like to try Pepcid. Calling to see if that would be okay. Said she noticed last week or so, she gets sob walking from room to room. Wandering if she might have covid. No fever. She doesn't have any covid tests at home to check. Called the office and spoke to Love. Informed to send a high priority message to the doctor. documented in this encounter Plan of Treatment Upcoming Encounters Date Type Department Care Team (Late st Contact Info) Description 06/01/2023 2:30 PM EST Cardiac Studies Cardiac Studies, [facility] [address] [place] [address] 06/05/2023 1:00 PM EST Office Visit Family Practice [facility] [address] [address] Nan Joe PA-C [address] [place] [address] 06/06/2023 1:45 PM EST [facility] [address] [place] [address] Nitish Crooks, DO [address] [place] [address] 06/15/2023 8:00 AM EST Office Visit [facility] [address] [place] [address] Carolina Ramirez MD [address] [place] [address] 07/04/2023 2:20 PM EDT Office Visit [facility] [address] [place] [address] Ghislaine Hernandez, DO [address] [place] [address] 10/01/2023 9:00 AM EDT Imaging [facility] [address] [place] [address] 01/08/2024 1:00 PM EDT Office Visit [facility] [address] [place] [address] Ghislaine Hernandez, DO [address] [place] [address] Scheduled Procedures Name Priority Associated Diagnoses Date/Ti me COLONOSCOPY FLEXIBLE PROXIMA L DIAGNOSTIC Recall Encounter for screening colonoscopy Health Maintenance Due Date Last Done Comments Cologuard 08/16/1996 Sigmoidoscopy 08/16/1996 Hepatitis B (1 of 3 - Risk 3-dose series) 2011 Zoster Vaccines (3 of 3) 01/26/2019 12/01/2018, 12/09 COVID-19 Vaccine ( - 2022- season) 2022 09/03/2020, 08/13/2020 Depression Screening 06/29/2023 06/28/2022 Diabetic Foot Exam 06/29/2023 06/28/2022, 0 06/14/2021, 06/04/2020, Additional history exists Albumin/Creatinine Ratio 07/12/2023 023, 01/10/2022, 12/22/2021, Additional history exists CKD PHOS USE SMARTSET 86231 07/12/2023 04/0 07/2022, 06/14/2021, 06/04/2020, Additional history exists HbA1c 07/17/2023 01/15/2023, 04/0 07/2022, 12/21/2021, Additional history exists Mammogram 09/28/2023 09/27/2022, 09/08, 09/26/2021, Additional history exists GFR 10/06/2023 04/06/2023, 03/10, 03/20/2023, Additional history exists Diabetic Eye Exam 11/14/2023 11/13/2022, , 11/13/2022, Additional history exists B-12 03/30/2024 03/30/2023, 100 12/2022, 04/28/2022, Additional history exists CKD HGB USE SMARTSET 92967 04/06/202404/06, 04/06/2023, 03/30/2023, Additional history exists Fecal [...] this encounter Medical Devices Implanted Type Area Vascular Technologist Sonographer Device Identifier Shelf Expiration Date Model / Serial / Lot Graft [place] Cornea Split - [id number] Implanted:Qty: 1 on 11/17/2022 by Carolina Ramirez MD at [facility] Right: Eye [employer] 09/11/2024 O-1 / [id number] / [id number] documented as of this encounter Advance Directives Latest Code Status on File Code Status Date Activated Date Inactivated Comments Full Code 07/28/2014 3:21 PM 07/31/2014 4:03 PM This order reflects the patients wishes and were consensually agreed upon. Care Teams Furniture Inspector Relationship Specialty Start Date End Date Ghislaine Hernandez DO [address] [facility] [place] [address] PCP - General Family Medicine 07/09/14 documented as of this encounter
--- OUTSIDE RECORDS SUMMARY | 2023-08-06 10:03 | External Medical Summary | Summary of Care ---
Author Name Unknown Organization [facility] Address [address] [place] [address] Phone [phone] Care Team Providers Care Board Winder Name Role Phone NathanielGhislaine alcantar Amita PUGH Primary Care Provider [phone] Reason for Visit * Reason Onset Date Comments Appointment 06/05/2023 EGD Encounter Details Date Type Department Care Team (Late st Contact Info) Description 06/05/2023 Telephone Family Practice [facility] [address] [place] [address] Nan Joe PA-C [address] [place] [address] Appointment (EGD) Allergies Active Allergy Reactions Criticality Noted Date Comments Bee Venom Edema airway,Edema Other High 01/15/2014 Eye swelled shut Nitrofurantoin 11/08/2018 vomiting Sulfa Antibiotics Hives,Other (Please comment) 01/15/2014 Boil/Acne like sores on abdomen documented as of this encounter (statuses as of 06/05/2023) Medications Medication Sig Dispensed Refills Start Date [...] 180 days 1 Each 1 06/28/2022 Active Additional Information Patient not taking.Reported on 06/05/2023 Lisinopril 5 MG Oral Tablet (Prinivil)Indication s:HTN, goal below 130/80 Take 1 tablet by mouth once daily 90 Tablet 1 01/25/2023 Active TO GO acetaZOLAMIDE OR Take 500 mg by mouth. Twice a day since Sunday afternoon; prior to retial exam per Dr Harrison from [place] [address] Active Atenolol 25 MG Oral Tablet (Tenormin)Indication [...] goal of less than 7.0% ([facility]) Take 1 tablet by mouth [...] 04/19/2023 Active Famotidine 20 MG Oral Tablet (Pepcid) Take [...] as of this encounter (statuses as of 06/05/2023) Active Problems Problem Noted Date Diagnosed Date [...] as of this encounter (statuses as of 06/05/2023) Resolved Problems Problem Noted Date Diagnosed Date [...] as of this encounter (statuses as of 06/05/2023) Immunizations Name Administration Dates Next Due COVID-19 [...] Care Team (Late st Contact Info) Description 06/06/2023 1:45 PM EST Office Visit Ophthalmology, [facility] [address] [place] [address] Nitish Crooks, [address] [facility] [place] [address] 06/15/2023 8:00 AM EST Office Visit [facility] [address] [place] [address] Carolina Ramirez MD [address] [place] [address] 07/04/2023 2:20 PM EDT Office Visit [facility] [address] [facility] [place] [address] Ghislaine Hernandez, DO [address] [place] [address] 10/01/2023 9:00 AM EDT Imaging Radiology [facility] [address] [facility] [address] [place] [address] 01/08/2024 1:00 PM EDT Office Visit [facility] [address] [facility] [place] [address] Ghislaine Hernandez, DO [address] [facility] [place] [address] Scheduled Procedures Name Priority Associated Diagnoses Date/Ti [...] Additional history exists CKD PHOS USE SMARTSET 29209 07/12/2023 04/0 07/2022, 06/14/2021, 06/04/2020, Additional history exists HbA1c 07/17/2023 01/15/2023, 04/0 07/2022, 12/21/2021, Additional history exists Mammogram 09/28/2023 09/27/2022, 09/08, 09/26/2021, Additional history exists GFR 10/06/2023 04/06/2023, 03/10, 03/20/2023, Additional history exists Diabetic Eye Exam 11/14/2023 11/13/2022, , 11/13/2022, Additional history exists B-12 03/30/2024 03/30/2023, 12/2022, 04/28/2022, Additional history exists CKD HGB USE SMARTSET 45391 04/06/202404/06, 04/06/2023, 03/30/2023, Additional history exists Fecal [...] this encounter Medical Devices Implanted Type Area Security Systems Integrator Device Identifier Shelf Expiration Date Model / Serial / Lot Shunt Tube Glaucoma [facility] Fp7 - [id number] - [id number] Implanted:Qty: 1 on 11/17/2022 by Carolina Ramirez MD at [facility] Right: Eye [employer] [id number] 09/17/2024 FP7 / [id number] / [id number] Graft [place] Cornea Split - [id number] Implanted:Qty: 1 on 11/17/2022 by Carolina Ramirez MD at [facility] Right: Eye [employer] 09/11/2024 [facility] / [id number] / [id number] documented as of this encounter Advance Directives Latest Code Status on File Code Status Date Activated Date Inactivated Comments Full Code 07/28/2014 3:21 PM 07/31/2014 4:03 PM This order reflects the patients wishes and were consensually agreed upon. Care Teams Board Winder Relationship Specialty Start Date End Date Ghislaine Hernandez DO [address] [facility] [place] [address] PCP - General Family Medicine 07/09/14 documented as of this encounter
--- OUTSIDE RECORDS SUMMARY | 2023-08-06 10:03 | External Medical Summary | Summary of Care ---
Author Name Unknown Organization [facility] Address [address] [place] [address] Phone [phone] Care Team Providers Care Cook Seafood Name Role Phone NathanielGhislaine alcantar Amita PUGH Primary Care Provider [phone] Reason for Referral * Ancillary Services (Within 10 days (routine)) - Authorized Specialty Diagnoses / Procedures Referred By Tristian ahmmonds Referred To Contact Gastroenterology Diagnoses Gastroesophageal reflux disease with esophagitis, unspecified whether hemorrhage Nan Joe PA-C [address] [place] [address] Referral ID Status Reason Start Date Expiration Date Visits Requested Visits Authorized [id number] Authorized Ancillary Services Required 06/05/[phone] Question Answer Referral Priority Within 10 days (routine) Where should this appointment be scheduled? [facility] Comments Upper Endoscopy ASGE Guidelines other esophagitis on CT scan from ED ADDITIONAL INFORMATION 1. Is the patient on Coumadin? No 2. Is the patient on Pradaxa? No Reason for Visit * Reason Comments Emergency Department Follow-Up Encounter Details Date Type Department Care Team (Latest Contact Info) Description 06/05/2023 1:00 PM EST Office Visit [facility] [address] [place] [address] Nan Joe PA-C [address] [place] [address] Gastroesophageal reflux disease with esophagitis, unspecified whether hemorrhage* Allergies Active Allergy Reactions Criticality Noted Date [...] on 06/05/2023 Lisinopril 5 MG Oral Tablet (Prinivil)Indicati ons:HTN, goal below 130/80 Take 1 tablet by mouth once daily 90 Tablet 1 01/25/2023 Active TO GO acetaZOLAMIDE OR Take 500 mg by mouth. Twice a day since Sunday afternoon; prior to retial exam per Dr Harrison from [facility] 0 Active Atenolol 25 MG Oral Tablet (Tenormin)Indicati [...] 02/26/2023 Active Torsemide 20 MG Oral Tablet (Demadex)Indicatio ns:Bilateral [...] 03/26/2023 Active Folic Acid 1 MG Oral TabletIndications: [...] 04/19/2023 Active Famotidine 20 MG Oral Tablet (Pepcid)Indication s:Gastroesophageal reflux disease with esophagitis, unspecified whether hemorrhage Take 1 Tablet by mouth in the morning and 1 Tablet before bedtime. 60 Tablet 0 06/05/2023 Active Pantoprazole Sodium 40 MG Oral Tablet Delayed Release (Protonix)Indicati ons:Gastroesophage al reflux disease with esophagitis, unspecified whether hemorrhage Take 1 Tablet by mouth in the morning. 30 Tablet 5 06/05/2023 Active Pantoprazole Sodium 40 MG Oral Tablet Delayed Release (Protonix) Take 1 Tablet by mouth in the morning. 0 Discontinue d(Refill) Famotidine 20 MG Oral Tablet (Pepcid) Take 1 Tablet by mouth in the morning and 1 Tablet before bedtime. 0 Discontinue d(Refill) Hospital, Clinic, or Other Facility [...] mRNA, LNP-s, No Pre serve, 2-Dose Series ([employer]) 09/03/2020,08/13/2020 Pneumococcal Conjugate Vacc, 13 Valent (Prevnar) [...] Sign Reading Time Taken Comments Blood Pressure 120/70 06/05/2023 12:48 PM EST Pulse 64 06/05/2023 12:48 PM EST Temperature - - Respiratory Rate - - Oxygen Saturation - - Inhaled Oxygen Concentration - - Weight 85.4 kg (188 lb 4 oz) 06/05/2023 12:48 PM EST Height - - Body Mass Index 35.57 03/09/2023 4:19 PM EST documented in this encounter Progress Notes * Nan Joe PA-C - 06/05/2023 1:00 PM EST SUBJECTIVE: CC: Stephanie Mccauley is a 72 year old female who presents for ER f/u. HPI: Patient here for ED f/u, [facility] notes from 05/10/23 reviewed prior to visit. Patient was seen for epigastric pain, chest pain. She was found to have mild esophagitis on CT abdomen/pelvis. She did have cardiac work up which included ECG and troponins- no changes. She was prescribed 2 drug regimen (pantoprazole 40 mg daily and pepcid 20 mg BID). This has helped with acid already. Feels 50% better and even better today. No longer with pain, only lingering symptom- heartburn breakthroughs, no daily. She does report that for last couple months she was trying to manage heartburn with with diet and tums. She did not use any other OTC medications. She denies hematochezia, hematemesis, continue nausea, no vomiting, diarrhea, continue epigastric pain. No chest pain, chest tightness, SOB. There are no exam notes on file for this visit. ROS: See HPI for pertinent positive and negatives HISTORY: Past Medical History: Diagnosis Date BENIGN HYPERTENSION [...] performed by Brent [facility]ara MD at [facility] COLONOSCOPY, DIAGNOSTIC (RECTUM) 12/06/2017 diverticulosis, repeat 10 yrs/COLONOSCOPY FLEXIBLE PROXIMAL DIAGNOSTIC performed by Brent Alcantara MD at [facility] EGD, FLEXIBLE, DIAGNOSTIC 12/06/2017 normal bx/ESOPHAGOGASTRODUODENOSCOPY (EGD), FLEXIBLE, TRANSORAL, DIAGNOSTIC performed by Brent Alcantara MD at [facility] EXPLORATION OF ABDOMEN N/A 07/28/2014 EXPLORATORY LAPAROTOMY performed by Janine Waller DO at OR [facility] INJECTION OF EYE DRUG Right 09/15/2014 # [...] performed by Janine Waller DO at OR [facility] LASER SURGERY OF INNER EYE STRANDS Right 01/03/2017 Micropulse Laser OD, Dr. Crooks (consent signed) LASERING OF SECONDARY CATARACT Bilateral 02/2016 OU-Dr. Lazara PRINCE ORDER ([facility] ONLY) Right 09/15/2014-09/16/2015 EYLEA CONSENT OD SIGNED; DR VALERIY PRINCE ORDER ([facility] ONLY) Left 09/24/2014-09/25/2015 EYLEA OS consnet signed, Dr.Cessna SURESH SALCIDO ([facility] ONLY) Right 12/25/14-12/26/15 TRIESENCE OD CONSENT SIGNED, Dr. Valeriy PRINCE ORDER ([facility] ONLY) Left 02/04/2015-02/05/2016 TRIESENCE OS consent signed, DR.Cessna SURESH SALCIDO ([facility] ONLY) Left 05/13/2015-05/13/2016 ILUVIEN CONSENT OS SIGNED; DR VALERIY PRINCE ORDER ([facility] ONLY) Right 07/29/2015-07/28/2016 ILUVIEN CONSENT OD SIGNED; DR VALERIY SALCIDO ([facility] ONLY) Right 10/22/15-10/21/16 EYLEA CONSENT OD SIGNED; DR VALERIY SALCIDO ([facility] ONLY) Bilateral 11/30/15-11/29/16 EYLEA CONSENT OU SIGNED; DR VALERIY PRINCE ORDER ([facility] ONLY) Right 08/18/2016-08/18/2017 Triesence OD Consent signed, Dr.Cessna SURESH SALCIDO ([facility] ONLY) Bilateral 12/07/16-12/07/17 EYLEA CONSENT OU SIGNED, DR VALERIY PRINCE ORDER ([facility] ONLY) Bilateral 12/04/2017-12/04/2018 EYLEA CONSENT SIGNED OU; DR VALERIY PRINCE ORDER ([facility] ONLY) ACT 112 SIGNED, Dr. Valeriy PRINCE ORDER ([facility] ONLY) Bilateral 12/04/2018-12/05/2019 Eylea OU consent signed, Dr.Cessna PRINCE ORDER ([facility] ONLY) Bilateral 12/03/2019-12/02/2020 Eylea OU Consent [...] performed by Janine Waller DO at OR [facility] TREATMENT OF EXTENSIVE RETINOPATHY, PHOTOCOAGULATION Right 01/03/2023 Laser OD, Dr. Crooks TREATMENT OF EXTENSIVE RETINOPATHY, PHOTOCOAGULATION Left 01/24/2023 Laser treatment OS, Dr. Crooks TREATMENT OF EXTENSIVE RETINOPATHY, PHOTOCOAGULATION Right 01/31/2023 Laser treatment OD, Dr. Crooks Social History Tobacco Use Smoking status: Never Smokeless tobacco: Never Vaping Use Vaping Use: Never used Substance Use Topics Alcohol use: No Drug use: No Family History Problem Relation Age of Onset Diabetes Mother Arthritis Mother Lung Disorder Mother Oxygen use Eye Problems Mother cataracts Osteoporosis Mother Hypertension Father Dementia Father COPD Father Oxygen use Cancer Father Bladder Diabetes Grandmother (Maternal) Diabetes Grandfather (Maternal) Fibromyalgia Sister Hypertension Sister Osteoporosis Sister Hypertension Grandmother (Paternal) Fibromyalgia Sister Breast Cancer No significant family history Outpatient Medications Marked as Taking for the 06/05/23 encounter (Office Visit) with Nan Joe PA-C Medication Sig Famotidine 20 MG Oral Tablet (Pepcid) Take 1 Tablet by mouth in the morning and 1 Tablet before bedtime. Pantoprazole Sodium 40 MG Oral Tablet Delayed Release (Protonix) Take 1 Tablet by mouth in the morning. acetaZOLAMIDE ER 500 MG Oral Capsule Extended Release 12 Hour (Diamox Sequels) Take 1 Capsule by mouth in the morning and 1 Capsule before bedtime. Dorzolamide HCl 2 % Ophthalmic Solution (Trusopt Ocumeter Plus) Instill 1 Drop into both eyes in the morning and 1 Drop in the evening. Rocklatan 0.02-0.005 % Ophthalmic Solution (Netarsudil-Latanoprost) Instill 1 Drop into both eyes every evening. Atorvastatin Calcium 40 MG Oral Tablet (Lipitor) Take 1 tablet by mouth once daily Folic Acid 1 MG Oral Tablet Take 1 Tablet by mouth in the morning. Potassium Chloride ER 20 MEQ Oral Tablet Extended Release Take 1 Tablet by mouth in the morning. When taking torsemide (diuretic).. glipiZIDE 5 MG Oral Tablet (Glucotrol) Take 1/2 (one-half) tablet by mouth once daily amLODIPine Besylate 10 MG Oral Tablet (Norvasc) Take 1 tablet by mouth once daily Atenolol 25 MG Oral Tablet (Tenormin) Take 1 tablet by mouth once daily metFORMIN HCl ER 500 MG Oral Tablet Extended Release 24 Hour (Glucophage XR) Take 1 tablet by mouthonce daily TO GO acetaZOLAMIDE OR Take 500 mg by mouth. Twice a day since Sunday afternoon; prior to retial exam per Dr Harrison from [facility] Lisinopril 5 MG Oral Tablet (Prinivil) Take 1 tablet by mouth once daily OneTouch Ultra Blue In Vitro Strip (Glucose Blood) Use to test blood sugar once daily cholecalciferol, VIT D3, (VITAMIN D3) 1000 UNITS Tablet Take 1 Tablet by mouth in the morning. Aspirin 81 MG Tablet Take 1 Tablet by mouth in the morning. Brimonidine Tartrate-Timolol 0.2-0.5 % Ophthalmic Solution Instill 1 Drop into both eyes in the morning and 1 Drop before bedtime. Current Facility-Administered Medications for the 06/05/23 encounter (Office Visit) with Nan Joe PA-C Medication Faricimab-svoa (Vabysmo) intravitreal inj 6 mg ROPivacaine (Naropin) inj 1.5 mg Review of patient's allergies indicates: Allergen Reactions Bee Venom Edema airway and Edema Other Eye swelled shut Macrobid [Nitrofurantoin] vomiting Sulfa Antibiotics Hives and Other (Please comment) Boil/Acne like sores on abdomen OBJECTIVE: BP 120/70 | Pulse 64 | Wt 85.4 kg (188 lb 4 oz) | BMI 35.57 kg/m | BSA 1.92 m General appearance: awake, alert, no apparent distress, cooperative Head: Normocephalic, No masses, lesions, tenderness or abnormalities Mouth: no exudate, no erythema, lips, buccal mucosa, and tongue normal, and mucous membranes are moist Neck: supple, no adenopathy, thyroid normal size, non-tender, without nodularity Heart: regular rate & rhythm, no gallops, and no murmurs Lungs: lungs clear to auscultation and breathing non-labored ABDOMEN: abdomen soft, non-tender, normal bowel sounds, and no masses or organomegaly Skin: skin color, texture, turgor are normal, no rashes ASSESSMENT/PLAN: Gastroesophageal reflux disease with esophagitis, unspecified whether hemorrhage (Primary) - UPPER ENDOSCOPY GI REFERRAL OP - Famotidine 20 MG Oral Tablet (Pepcid); Take 1 Tablet by mouth in the morning and 1 Tablet before bedtime. - Pantoprazole Sodium 40 MG Oral Tablet Delayed Release (Protonix); Take 1 Tablet by mouth in the morning. Continue with pantoprazole and famotidine as prescribed, patient reports improvement. She has f/u scheduled with PCP on 07/04/23. At this time can consider d/c famotidine if symptoms improving. Given evidence of esophagitis on CT scan recommend scheduling EGD, however can reassess in 1 month. Patients goals for plan of care were discussed. Total time today including reviewing chart before the visit, pertinent labs, imaging reports, face to face time, and documentation time was 42 minutes. Follow up: In 1 month as scheduled with PCP. Nan Joe PA-C [facility] [address] [facility] [place] [address] documented in this encounter Plan of Treatment Upcoming Encounters Date Type Department Care Team (Late st Contact Info) Description 06/06/2023 1:45 PM EST Office Visit Ophthalmology, [facility] [address] [place] [address] Nitish Crooks, DO [address] [place] [address] 06/15/2023 8:00 AM EST Office Visit [facility] Eye [facility] [address] [place] [address] Carolina Ramirez MD [address] [place] [address] 07/04/2023 2:20 PM EDT Office Visit [facility] [address] [place] [address] Ghislaine Hernandez, DO [address] [place] [address] 10/01/2023 9:00 AM EDT [facility] [address] [place] [address] 01/08/2024 1:00 PM EDT Office Visit [facility] [address] [place] [address] Ghislaine Hernandez, DO [address] [place] [address] Scheduled Procedures Name Priority Associated Diagnoses Date/Ti me COLONOSCOPY FLEXIBLE PROXIMA L DIAGNOSTIC Recall Encounter for screening colonoscopy Scheduled Referrals Name Type Priority Associated Diagnoses Orde r Schedule UPPER ENDOSCOPY GI REFERRAL OP Referral Within 10 days (routine) Gastroesophageal reflux disease with esophagitis, unspecified whether hemorrhage Ordered: 06/05/2023 Health Maintenance Due Date Last Done Comments Cologuard 08/16/1996 Sigmoidoscopy 08/16/1996 Zoster Vaccines (3 of 3) 01/26/2019 12/01/2018, 12/09 COVID-19 Vaccine ( season) 2022 09/03/2020, 08/13/2020 Depression Screening 06/29/2023 06/28/2022 Diabetic Foot Exam 06/29/2023 06/28/2022, 0 06/14/2021, 06/04/2020, Additional history exists Albumin/Creatinine Ratio 07/12/2023 023, 01/10/2022, 12/22/2021, Additional history exists CKD PHOS USE SMARTSET 54259 07/12/2023 04/0 07/2022, 06/14/2021, 06/04/2020, Additional history exists HbA1c 07/17/2023 01/15/2023, 04/0 07/2022, 12/21/2021, Additional history exists Mammogram 09/28/2023 09/27/2022, 09/08, 09/26/2021, Additional history exists GFR 10/06/2023 04/06/2023, 03/10, 03/20/2023, Additional history exists Diabetic Eye Exam 11/14/2023 11/13/2022, , 11/13/2022, Additional history exists B-12 03/30/2024 03/30/2023, 10/0 12/2022, 04/28/2022, Additional history exists CKD HGB USE SMARTSET 01226 04/06/202404/06, 04/06/2023, 03/30/2023, Additional history exists Fecal [...] this encounter Medical Devices Implanted Type Area Fare Enforcement Officer Device Identifier Shelf Expiration Date Model / Serial / Lot Shunt Tube Glaucoma Ahmed 7 - [id number] - [id number] Implanted:Qty: 1 on 11/17/2022 by Carolina Ramirez MD at [facility] Right: Eye NEW [employer] [id number] 09/17/2024 Augustus / [id number] / [id number] Graft [place] Cornea Split - [id number] Implanted:Qty: 1 on 11/17/2022 by Carolina Ramirez MD at OR [facility] Right: Eye [employer] 09/11/2024 O-1 / [id number] / [id number] documented as of this encounter Visit Diagnoses Diagnosis Gastroesophageal reflux disease with esophagitis, unspecified whether hemorrhage- Primary documented in this encounter Advance Directives Latest Code Status on File Code Status Date Activated Date Inactivated Comments Full Code 07/28/2014 3:21 PM 07/31/2014 4:03 PM This order reflects the patients wishes and were consensually agreed upon. Care Teams Cook Seafood Relationship Specialty Start Date End Date Ghislaine Hernandez DO [address] [place] [address] [address] PCP - General Family Medicine 07/09/14 documented as of this encounter"
--- OUTSIDE RECORDS SUMMARY | 2023-08-06 10:03 | External Medical Summary | Summary of Care ---
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, unspecified proliferative retinopathy type (HCC)* Allergies Active Allergy Reactions Criticality Noted Date Comments Bee Venom Edema airway,Edema Other High 01/15/2014 Eye swelled shut Nitrofurantoin 11/08/2018 vomiting Sulfa Antibiotics Hives,Other (Please comment) 01/15/2014 Boil/Acne like sores on abdomen documented as of this encounter (statuses as of 06/06/2023) Medications Medication Sig Dispensed Refills Start Date [...] to retial exam per Dr [place] [address] Active Atenolol 25 MG Oral Tablet (Tenormin)Indications [...] goal of less than 7.0% ([facility]) Take 1 tablet by mouth [...] as of this encounter (statuses as of 06/06/2023) Active Problems Problem Noted Date Diagnosed Date [...] as of this encounter (statuses as of 06/06/2023) Resolved Problems Problem Noted Date Diagnosed Date [...] as of this encounter (statuses as of 06/06/2023) Immunizations Name Administration Dates Next Due COVID-19 [...] encounter Progress Notes * Nitish Crooks, - 06/06/2023 1:45 PM EST [facility] [place] Nursing notes reviewed. Eye vitals reviewed. Mood and Affect: normal HPI: Stephanie Mccauley is a 72 year old female who presents for DR No other eye complaints. Denies significant pain. Base Eye Exam Visual Acuity (Snellen - Linear) Right Left Dist cc 20/50 +2 20/70 -1 Dist ph cc 20/40 -2 NI Tonometry (Tonopen, 2:06 PM) Right Left Pressure 11 12 Pupils Pupils APD Right PERRL None Left PERRL Visual Herman (Counting fingers) Right Left Full Full Extraocular Movement Right Left Full, Ortho Full, Ortho Neuro/Psych Oriented x3: Yes Mood/Affect: Normal Dilation Both eyes: 0.5% Proparacaine @ 2:05 PM Dilation #2 Both eyes: 1.0% Mydriacyl, 2.5% Phenylephrine @ 2:05 PM Dilation Comments Patient cautioned that effects of dilation may last 2-7 hours dependant upon individual reaction. It was discussed that driving while dilated is not recommended. Strabismus Exam Correction: md Observations: Ortho Distance Near Near +3DS N Bifocals cover/uncover, and alternate cover EXTERNAL: The ocular adnexae are unremarkable. SLE: [...] nerve: 0.3, no edema/pallor/NVD macula: no CIDME, +reimbursement auditor vessels: wnl midperiphery: +reimbursement auditor periphery: PRP, no RT/RD Dilated fundus exam OS: vitreous: clear optic nerve: 0.3, no edema/pallor/NVD macula: no CIDME, +reimbursement auditor vessels: wnl midperiphery: +reimbursement auditor periphery: PRP, no RT/RD OCT Interpretation: OD: scattered mild chronic DME, no srfluid, no PVD - improved 28um prior worse 54um prior improved 35um, prior mildy worse, prior improved, prior STABLE OS: no sig DME, no srlfuid, no PVD -STABLE A/P: 1. Proliferative diabetic retinopathy OU -++DME OU on presentation OD: -s/p Triesence OD 12/25/14--great response -s/p ILUVIEN OD (07/29/15) -s/p FML/micropulse 01/03/17 -s/p Triesence (08-18-16) -s/p Eylea OD (10/31/21, 08/15/21, 06/08/21, 04/22/21, 02-15-21, 01-03-21, 11-11-20, 09-23-20, 08-05-20, 06-22-20, 20, 20, 20, 20, 20, 20, 19, 19, 12-04-18, 10-16-18, 08-01-18, 06-20-18, 05-02-18, 18, 10-05-2017, 05/15/17, 01-18-17, 10-31-16, 07/06/16, 05-25-16, 02/03/16, 10/22/15, 09/09/15..., 05/19/15, 03/18/15, 11/11/14, 10/15/14, 09/15/14) -Vabysmo OD 11/02/22--NVI/NVA, 04/20/22, 01/27/22 -7 months -s/p PRP 01/31/23, 01/03/23 -monitor OS: -s/p Triescence OS 02/04/15--great response -s/p ILUVIEN OS (05/13/15) -s/p Eylea OS (12/10/21, 09/23/21, 07/08/21, 03/21/21, 01-24-21, 12-09-20, 10-28-20, 09-09-20, 07-22-20, 06-01-20, 02-11-20, 12-02-20, 20, 08-19-20, 06-30-20, 05-06-20, 19, 02-05-19, 19, 10-24-19, 19, 07-03-19, 04-18-18, 18, 06-26-2017, 03-29-17, 12/07/16, 08-03-16, 04/20/16, 01/06/16, 09/24/15, 04/29/15, 01/07/15, 11/26/14, 10/29/14, 09/24/14) -Vabysmo OS 03/28/23, 11/08/22--NVI, 06/01/22, 03/09/2022 -10 weeks -s/p PRP 01/24/23 -monitor -recommend HgbA1C <7, BP and lipid control. 2. Neovascular Glaucoma OU -s/p Ahmed OD--Bashir -IOP improved now that restared Diamox; -possible upcoming [facility] w/ Dr. Camejo; okay to proceed from retina standpoint -IOP great today --- pt taking Diamox--only tolerating qday Current Eye meds: BOTH EYES CONT Brimonidine-timolol 2 times a day CONT Dorzolamide 2 times a day CONT Rocklatan at bedtime CONT Diamox 500mg qday-bid as tolerated 3. Myopia OU -(-3.50D) -no myopic retinopathy 4. Pseudophakia OU -stable, by Dr. Haile -does not drive f/u 4-6 weeks, OCT OU; OCTA OU Nitish Crooks DO CC: Dr. Camejo CC: Palmer Haile DO PCP: Ghislaine Hernandez DO documented in this encounter Nursing Notes * Porsha Adkins RN - 06/06/2023 1:59 PM EST Stephanie Mccauley is a 72 year old year old female who presents for PDR OU. Last Office Visit: 05/03/2023 (in office), Visit date not found (telemedicine) Patient currently states no change in vision. Are you diabetic? Yes. Do you check your blood sugars daily? YES. Fasting BS this mornin mg/dl. Last Hemoglobin A1C: Lab Results Component Value Date/Time HGBA1C 6.7 (H) 01/15/2023 03:15 PM HGBA1C 6.9 (H) 07/11/2022 03:38 PM HGBA1C 6.8 (H) 12/21/2021 12:42 PM HGBA1C 6.5 (H) 09/20/2019 09:37 AM HGBA1C 6.9 (H) 03/13/2019 10:25 AM HGBA1C 6.7 (H) 09/10/2018 11:[address]? yes OCT image(s) of both eyes acquired and filed/scanned into chart. documented in this encounter Plan of Treatment Upcoming Encounters Date Type Department Care Team (Late st Contact Info) Description 06/15/2023 12:00 PM EST Office Visit [facility] Eye [facility] [address] [address] Carolina Ramirez MD [address] [place] [address] 07/04/2023 2:20 PM EDT Office Visit [facility] [address] [facility] [place] [address] Ghislaine Hernandez, DO [address] [place] [address] 07/31/2023 2:30 PM EDT Office Visit Ophthalmology, [facility] [address] [place] [address] Nitish Crooks, DO [address] [place] [address] 10/01/2023 9:00 AM EDT Imaging Radiology [facility] 1st Floor, [place] [address] [place] [address] 01/08/2024 1:00 PM EDT Office Visit Family Practice [facility] [address] [place] [address] Ghislaine Hernandez, DO [address] [place] [address] Scheduled Orders Name Type Priority Associated Diagnoses Orde r Schedule RETINA SCAN DIAGNOSTIC IMAGE, POSTERIOR Procedures Routine 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, unspecified proliferative retinopathy type (HCC) Ordered: 06/06/2023 Scheduled Procedures Name Priority Associated Diagnoses Date/Ti [...] Additional history exists CKD PHOS USE SMARTSET 92666 07/12/2023 04/0 07/2022, 06/14/2021, 06/04/2020, Additional history exists HbA1c 07/17/2023 01/15/2023, 040 07/2022, 12/21/2021, Additional history exists Mammogram 09/28/2023 09/27/2022, 09/08, 09/26/2021, Additional history exists GFR 10/06/2023 04/06/2023, 03/10, 03/20/2023, Additional history exists Diabetic Eye Exam 11/14/2023 11/13/2022, , 11/13/2022, Additional history exists B-12 03/30/2024 03/30/2023, 1012/2022, 04/28/2022, Additional history exists CKD HGB USE SMARTSET 67405 04/06/202404/06, 04/06/2023, 03/30/2023, Additional history exists Fecal [...] this encounter Medical Devices Implanted Type Area [employer] Resource Teacher Device Identifier Shelf Expiration Date Model / Serial / Lot Shunt Tube Glaucoma Ahmed Fp7 - [id number] - [id number] Implanted:Qty: 1 on 11/17/2022 by Carolina Ramirez MD at [facility] Right: Eye NEW [employer] [id number] 09/17/2024 FP7 / [id number] / [id number] Graft [place] Cornea Split - [id number] Implanted:Qty: 1 on 11/17/2022 by Carolina Ramirez MD at [facility] Right: Eye [employer] 09/11/2024 O-1 / [id number] / [id number] documented as of this encounter Visit Diagnoses Diagnosis 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, unspecified proliferative retinopathy type (HCC)- Primary documented in this encounter Advance Directives Latest Code Status on File Code Status Date Activated Date Inactivated Comments Full Code 07/28/2014 3:21 PM 07/31/2014 4:03 PM This order reflects the patients wishes and were consensually agreed upon. Care Teams Manager Ambulatory Relationship Specialty Start Date End Date Ghislaine Hernandez DO [address] [place] [address] PCP - General Family Medicine 07/09/14 documented as of this encounter
--- OUTSIDE RECORDS SUMMARY | 2023-08-06 10:03 | External Medical Summary | Summary of Care ---
Author Name Unknown Organization [facility] Address [address] [place] [address] Phone [phone] Care Team Providers Care Trial Attorney Name Role Phone NathanielGhislaine alcantar Amita [facility] Primary Care Provider [phone] Reason for Visit * Reason Onset Date Comments Appointment 05/10/2023 Encounter Details Date Type Department Care Team (Late st Contact Info) Description 05/10/[address] [phone] Services, Scheduling [address] [place] [address] Appointment Allergies Active Allergy Reactions Criticality Noted Date Comments Bee Venom Edema airway,Edema Other High 01/15/2014 Eye swelled shut Nitrofurantoin 11/08/2018 vomiting Sulfa Antibiotics Hives,Other (Please comment) 01/15/2014 Boil/Acne like sores on abdomen documented as of this encounter (statuses as of 05/10/2023) Medications Medication Sig Dispensed Refills Start Date [...] to retial exam per Dr [place] [id number] Active Atenolol 25 MG Oral Tablet (Tenormin)Indication [...] as of this encounter (statuses as of 05/10/2023) Active Problems Problem Noted Date Diagnosed Date [...] as of this encounter (statuses as of 05/10/2023) Resolved Problems Problem Noted Date Diagnosed Date [...] as of this encounter (statuses as of 05/10/2023) Immunizations Name Administration Dates Next Due COVID-19 mRNA, LNP-s, No Pre serve, 2-Dose Series (Conferize) 09/03/2020,08/13/2020 Pneumococcal Conjugate Vacc, 13 Valent (Prevnar) [...] encounter Miscellaneous Notes * Telephone Encounter - Reina Rosa OSA - 05/10/2023 3:37 PM EST Pt needs to reschedule 2/[address] Camejo - she is currently in the hospital having testing done for stomach concerns. Please contact patient with new appt. Thank you! documented in this encounter Plan of Treatment Upcoming Encounters Date Type Department Care Team (Late st Contact Info) Description 06/01/2023 2:30 PM EST Cardiac Studies Cardiac Studies, [facility] [address] [address] 06/06/2023 1:45 PM EST Office Visit Ophthalmology, [facility] [address] [address] Nitish Crooks, DO [address] [address] 07/04/2023 2:20 PM EDT Office Visit Family Practice [facility] [address] [address] Ghislaine Hernandez, DO [address] [place] [address] 10/01/2023 9:00 AM EDT Imaging Radiology [address] [place] [address] 01/08/2024 1:00 PM EDT Office Visit Family Practice [facility] [address] [place] [address] Ghislaine Hernandez, [address] [place] [address] Scheduled Procedures Name Priority Associated Diagnoses Date/Ti [...] Additional history exists CKD PHOS USE SMARTSET 16945 07/12/2023 04/0 07/2022, 06/14/2021, 06/04/2020, Additional history exists HbA1c 07/17/2023 01/15/2023, 04/0 07/2022, 12/21/2021, Additional history exists Mammogram 09/28/2023 09/27/2022, 09/08, 09/26/2021, Additional history exists GFR 10/06/2023 04/06/2023, 03/10, 03/20/2023, Additional history exists Diabetic Eye Exam 11/14/2023 11/13/2022, , 11/13/2022, Additional history exists B-12 03/30/2024 03/30/2023, 10/0 12/2022, 04/28/2022, Additional history exists CKD HGB USE SMARTSET 19814 04/06/202404/06, 04/06/2023, 03/30/2023, Additional history exists Fecal [...] this encounter Medical Devices Implanted Type Area School Bus Attendant Device Identifier Shelf Expiration Date Model / Serial / Lot Graft [employer] Cornea Split - [id number] Implanted:Qty: 1 on 11/17/2022 by Bashir Alejandra, Carolina Mortensen MD at [facility] Right: Eye [employer] 09/11/2024 O-HH1 / [id number] / [id number] documented as of this encounter Advance Directives Latest Code Status on File Code Status Date Activated Date Inactivated Comments Full Code 07/28/2014 3:21 PM 07/31/2014 4:03 PM This order reflects the patients wishes and were consensually agreed upon. Care Teams Trial Attorney Relationship Specialty Start Date End Date Ghislaine Hernandez DO [address] [id number] PCP - General Family Medicine 07/09/14 documented as of this encounter
[2023-08-06 10:08] LABS: Base Excess VBG -5.1 mEq/L; HCO3 VBG 20 mmol/L; Oxygen Saturation VBG 80.3 %; PCO2 VBG 36 mmHg (38-50); PO2 VBG 48 mmHg; pH VBG 7.35 (7.36-7.41)
[2023-08-06 10:12] LABS: Albumin Level 3.9 gm/dl (3.4-5.0); BUN Creatinine Ratio 30.4 (10-20); Bilirubin Direct 0.1 mg/dl (0-0.2); Bilirubin,Total 0.4 mg/dl (0.2-1.0); Calcium 8.6 mg/dl (8.6-10.3); Creatinine Clr Calc Pharmacy 40.7 ml/min; Est GFR (African American) 44.5 ml/min; Est GFR (Non-African American) 38.4 ml/min; Magnesium 2.1 mg/dl (1.7-2.4); Potassium 4.6 mmol/L (3.5-5.1); Total Protein 6.8 gm/dl (6.0-8.3)
[2023-08-06 10:22] LABS: INR 1.1 (0.9-1.1); Partial Thromboplastin Time 28 Seconds (21-31); Prothrombin Time 11.7 Seconds (9.0-12.0)
--- NOTE | 2023-08-06 11:41 | History & Physical Report ---
Date of Service August 06, 2023 Assessment & Plan (1) Angioedema: (2) Dermatitis: (3) Complicated UTI (urinary tract infection): (4) DM type 2 (diabetes mellitus, type 2): (5) HTN (hypertension): (6) Dyslipidemia: (7) CKD (chronic kidney disease) stage 3, GFR 30-59 ml/min: (8) Anemia: Plan This is a 72 yr old F who has a significant PMH of HTN, HLD, T2DM, CKD-3, hx of recurrent UTI and glaucoma who presents to ED 2/2 difficulty swallowing, swallowing of upper lip and rash to legs. The rash on her leg started 4 days ago. Angioedema Dermatitis admit to PCU discussed with ENT Dr. Maldonado - she is going to perform ENT glide scope to determine significance of edema IV dexamethasone 10mg q6h IV benadryl 25mg q12; IV pepcid 20mg Q12 hold lisinopril for now, no other overt cause at current time elicited from pt, no new soaps/detergents/lotions/creams/exposures/outside allergens/animals/meds obtain complement levels, CBC w diff in a.m calamine lotion for rash will consult Dr. Escobar with derm for assistance with rash and significance with angioedema consider allergy/immunology consult B/L lower extremity rash vs cellulitis appears to be more of a dermatitis, no leukocytosis she does have increased swelling, echo from 06/02 showed Preserved EF, NO diastolic dysfunction obtain BNP, consider repeat echo if significantly elevated empirically on IV rocephin for UTI which will also have skin coverage pt states similar sx in March associated with UTI and sx improved with antibiotics Complicated UTI pt with complicated anatomy outpatient urine culture grew > 100k citrobacter freundiii in setting of flank pain on 08/01 IV Rocephin, await urine culture in house T2DM, controlled a1c 7.3 in june hold glipizide/metformin lantus/novolog per protocol consult glycemic pharmacy due to significant IV steroids HTN continue amlodipine, atenolol hold lisinopril PRN IV hydralazine for SBP > 170 HLD chronic, stable continue statin Anemia folate deficiency continue folic acid supplementation likely multifactorial in setting of renal disease and folate def obtain anemia panel CKD-3 baseline cr 1.5-1.8 monitor renal function DVT ppx: SQ Heparin FULL CODE Dispo: admit to PCU PCP: Dr. Ghislaine Hernandez Diet: NPO for now until swelling improves, ENT evals Pt was seen and examined in collaboration with Dr. Garcia, please see addendum A total of 76 minutes was spent coordinating, documenting, and providing care for this patient excluding time spent in the performance of separately billed services. This included personally viewing all current laboratories and imaging studies, medication reconciliation, outpatient chart review, and discussion with specialists. History of Present Illness Chief Complaint: Rash x 4 days; Difficulty swallowing x 1 day. Primary Care Provider: Ghislaine Hernandez DO This is a 72 yr old F who has a significant PMH of HTN, HLD, T2DM, CKD-3, hx of recurrent UTI and glaucoma who presents to ED 2/2 difficulty swallowing, swallowing of upper lip and rash to legs. The rash on her leg started 4 days ago. She had a similar episode in March that required antibiotics and her symptoms improved. She states that she has had increased swelling to her legs as well. She denies any recent change in soap, body wash, detergent, recently mowing grass, new socks or animals. She denies any new exposures. She states she recently saw nephrology who noted she had a, "kidney infection," and she was prescribed an antibiotic. She has not yet started. She denies any dysuria, hematuria, increased urg/freq. She typically does not have sx with her UTI. Her culture was positive for >100k citrobacter freundiii only resistant to cefoxitin. At the time she had similar sx in March she also had UTI. Also of note, when she woke up this morning she felt like she was having difficulty swallowing. She was unable to swallow some of her pills. She also noted that her upper lip and tongue was swollen. She was prescribed lisinopril approx 5 years ago and currently is maintained on 5 mg. She was on a higher dose years ago; however it was reduced due to being, "anemic."She takes in the the morning. Her last dose was yesterday a.m. Sister is at bedside who also helps elicit hx. She denies hx of lung disease, asthma or COPD. She denies any FH of angioedema. Her father had COPD, pacemaker; Mother had T2DM, CHF and required oxygen. She denies FH of autoimmune disease. Her outpatient records were reviewed. Of significance she did have a UTI in March. That culture grew E. coli. She also had an echocardiogram in May which revealed preserved EF of 55 to 59%, LV wall motion normal, diastolic function normal no evidence of pulm hypertension. Allergies Allergy/AdvReac Type Severity Reaction Status Date / Time bee venom protein (honey bee) Allergy Severe SWELLING Verified 05/10/23 13:31 AT SITE, HARD TO BREATHE Sulfa (Sulfonamide Allergy Severe From a b/p Verified 05/10/23 13:31 Antibiotics) med (told never take sulfa), RASH Cipro Allergy Unknown 0 Verified 08/27/17 01:28 ciprofloxacin [Cipro] Allergy Unknown 0 Verified 05/10/23 13:31 nitrofurantoin AdvReac Vomiting Verified 05/10/23 13:31 [From Macrobid] Home Medications Medication Instructions Recorded Confirmed Type amlodipine 10 mg tablet 10 mg PO DAILY 05/10/23 08/06/23 History aspirin 81 mg tablet,delayed 81 mg PO DAILY 05/10/23 08/06/23 History release atenolol 25 mg tablet 25 mg PO DAILY 05/10/23 08/06/23 History atorvastatin 40 mg tablet 40 mg PO HS 05/10/23 08/06/23 History brimonidine 0.2 %-timolol 0.5 % 1 drp ophthalmic (eye) BID 05/10/23 08/06/23 History eye drops cholecalciferol (vitamin D3) 25 25 mcg PO DAILY 05/10/23 08/06/23 History mcg (1,000 unit) tablet (Vitamin D3) dorzolamide 2 % eye drops 1 drp OPB BID 05/10/23 08/06/23 History faricimab-svoa 6 mg/0.05 mL 6 mg intravitreal DIRECTED PRN 05/10/23 08/06/23 History intravitreal solution (Vabysmo) .. folic acid 1 mg tablet 1 mg PO DAILY 05/10/23 08/06/23 History glipizide 5 mg tablet 2.5 mg PO DAILY 05/10/23 08/06/23 History lisinopril 5 mg tablet 5 mg PO DAILY 05/10/23 08/06/23 History metformin 500 mg tablet,extended 500 mg PO DAILYBD 05/10/23 08/06/23 History release 24 hr netarsudil 0.02 %-latanoprost 1 drp OPB HS 05/10/23 08/06/23 History [facility].005 [facility] Past Med/Surg History Medical History Pyelonephritis Hydronephrosis Complicated UTI (urinary tract infection) HTN (hypertension) Dyslipidemia DM type 2 (diabetes mellitus, type 2) Surgical History History of hysterectomy History of cataract surgery Family History Mother Diabetes CHF (congestive heart failure) Father Hypertension COPD (chronic obstructive pulmonary disease) Social History Smoking Status: Never smoker Hx Alcohol Use: No Hx Substance Use: No Preferred Language: [place] Feels Safe at Home: Yes Review of Systems Review of Systems: All systems reviewed & are unremarkable except as noted in HPI & below Physical Exam Physical Exam: please refer to Dr. Garcia addendum for physical exam findings. Results & Data Results & Data Vital Signs (Past 12 Hours) Vital Signs Temp Pulse Pulse Resp BP BP Pulse Ox 08/06/23 10:48 57 L 20 139/59 L 91 08/06/23 10:20 62 20 136/63 95 08/06/23 09:44 58 L 20 132/65 95 08/06/23 09:32 63 20 156/65 H 98 08/06/23 09:32 97 08/06/23 08:58 54 L 20 156/65 H 97 08/06/23 08:58 57 L 08/06/23 08:44 36.5 C 56 L 18 155/72 H 98 O2 Del Method 08/06/23 10:48 Room Air 08/06/23 10:20 Room Air 08/06/23 09:44 Room Air 08/06/23 09:32 Room Air 08/06/23 09:32 Room Air 08/06/23 08:58 Room Air 08/06/23 08:58 08/06/23 08:44 Room Air Diagnostic Findings Chest X-Ray 08/06/23 09:06 XR chest 1V portable HISTORY: Sepsis COMPARISON: Chest 05/10/2023. FINDINGS: The lungs are clear. The cardiac silhouette is top normal in size. No pleural effusions. No pneumothorax. No acute fractures. IMPRESSION: No acute process. ACT 112: Negative or not required by law. Electronically signed by: Federico Medellin M.D. 08/06/2023 9:55 AM Medications Administered Medication List Discontinued Medications Dexamethasone Sodium Phosphate (DexamethasonePf 10 Mg/Ml Vial) 10 mg IV NOW ONE Stop: 08/06/23 09:07 Last Admin: 08/06/23 09:37 Dose: 10 mg Documented By: SMOOTH Diphenhydramine HCl (Diphenhydramine 50 Mg/Ml Vial) 25 mg IV NOW STA Stop: 08/06/23 09:07 Last Admin: 08/06/23 09:37 Dose: 25 mg Documented By: SMOOTH Famotidine (Pepcid 20mg Iv Push) 20 mg in 5 mls @ 2.5 mls/min IV NOW STA Stop: 08/06/23 09:07 Last Admin: 08/06/23 09:37 Dose: 2.5 mls/min Documented By: ES Tranexamic Acid (Tranexamic Acid / 0.7% Nacl) 1,000 mg in 100 mls @ 600 mls/hr IV NOW STA Stop: 08/06/23 09:15 Last Infusion: 08/06/23 09:51 Dose: Infused Documented By: Admin: 08/06/23 09:37 Dose: 600 mls/hr Documented By: ES ECG Additional Comments: I have independently reviewed and interpreted patient's admitting EKG which revealed: sinus bradycardia 56, T wave inversions V1-2, confirmed on previous ecg in may 2023. COVID-19 Results Results COVID-19 Adm Lab Results: RBC 3.44 M/uL (4.20-5.40) L 08/06/23 WBC 8.63 K/ul (4.8-10.8) 08/06/23 Hgb 9.6 g/dl (12.0-16.0) L 08/06/23 Hct 30.1 % (37.0-47.0) L 08/06/23 Plt Count 265 K/uL (130-400) 08/06/23 Neutrophils (%) (Auto) 65.3 % 08/06/23 Lymphocytes (%) (Auto) 17.7 % 08/06/23 Monocytes # (Auto) 0.70 K/uL (0.11-0.59) H 08/06/23 Eosinophils # (Auto) 0.72 K/uL (0.00-0.50) H 08/06/23 Immature Granulocyte % (Auto) 0.3 % 08/06/23 Neutrophils # (Auto) 5.62 K/uL (1.40-6.50) 08/06/23 Lymphocytes # (Auto) 1.53 K/uL (1.20-3.40) 08/06/23 Monocytes # (Auto) 0.70 K/uL (0.11-0.59) H 08/06/23 Eosinophils # (Auto) 0.72 K/uL (0.00-0.50) H 08/06/23 Basophils # (Auto) 0.03 K/uL (0.00-0.20) 08/06/23 Immature Granulocyte # (Auto) 0.03 K/uL (0.01-0.20) 4 Na 137 mmol/L (136-145) 08/06/23 K 4.6 mmol/L (3.5-5.1) 08/06/23 Cl 108 mmol/L (98-107) H 08/06/23 CO2 20 mmol/L (21-32) L 08/06/23 Anion Gap 9 (3-11) 08/06/23 BUN 42 mg/dl (6-23) H 08/06/23 Creatinine 1.38 mg/dl (0.6-1.2) H 08/06/23 BUN/Creatinine Ratio 30.4 (10-20) H 08/06/23 Glucose Level 136 mg/dl (70-99(Fasting)) H 08/06/23 Ca 8.6 mg/dl (8.6-10.3) 08/06/23 Total Bilirubin 0.4 mg/dl (0.2-1.0) 08/06/23 Direct Bilirubin 0.1 mg/dl (0-0.2) 08/06/23 AST/SGOT 13 U/L (13-39) 08/06/23 ALT/SGPT 9 U/L (7-52) 08/06/23 Alkaline Phosphatase 65 U/L (34-104) 08/06/23 Total Protein 6.8 gm/dl (6.0-8.3) 08/06/23 Albumin 3.9 gm/dl (3.4-5.0) 08/06/23 Procalcitonin 0.04 ng/ml (0-0.5) 08/06/23 Ferritin 97.6 ng/ml (8-388) 08/06/23 PTT 28 Seconds (21-31) 08/06/23 INR 1.1 (0.9-1.1) 08/06/23 Chest X-Ray 08/06/23 Code Status & VTE Plan Code Status FULL CODE Supervising Physician Co-Signing Physician Notes I have seen and discussed the case with the collaborating advanced practitioner. I agree with the above H&P. I have reviewed and confirmed the patients medical history, the findings on physical examination, and the patients diagnosis and treatment plan with Adriana SALVADOR and agree with the information documented. In short, Ms. Mccauley is a 72 year old woman who is admitted for evaluation of angioedema and bilateral lower extremity dermatitis. Patient denies any new changes to her regimen: soaps, lotions, gardening, or any new routine changes--when she noted last bilateral extremity swelling and intense pruritis. She also was experiencing flank pain which is consistent with her UTI symptoms, therefore attributed the rash to her UTI. This has reportedly happened once before in 03/2023 when she had an e coli infection, however, the rash on her lags cleared with the keflex she was prescribed at that time. This time her urine was positive for citrobacter. She had a script sent, but did not start yet. She has been progressively experiencing full body pruritis, notably on her back, with no rash apparent. Last evening she stated her throat felt weird, then could not take her routine medications, prompting her presentation to the ED She received dex/benadryl and TXA but is unable to say what exactly helped her feel better, as she was noting marginal improvement. GENERAL APPEARANCE: AxOx4, generally well, not acutely ill no distress HEENT: NC, AT. MMM. EOMI--right pupil 4-5mm > left pupil 2mmin size, upper lip notable swollen, no airway obstruction on visual exam, no speech disturbance NECK: Supple without lymphadenopathy. No stiffness or restricted ROM. HEART: Normal rate and regular rhythm, normal S1/S1, no m/r/g LUNGS: CTAB, moving air well. No crackles or wheezes are heard. ABDOMEN: Soft, nontender, nondistended with good bowel sounds heard. BACK: diffuse excoriations, no visible urticaria or maculopapular rashes EXTREMITIES: Without cyanosis, clubbing or edema. NEUROLOGICAL: Grossly nonfocal. Alert and oriented, moving all 4 extremities. CN not formally tested but appear grossly intact. Skin: Warm and dry without any rash. #Lip Angioedema with concern for airway involvement #Diffuse Pruritus -Concern for allergic reaction--however, unable to elucidate any new contact with detergents, lotions, washes, grass/outdoor exposure. Denies new medications. 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 -On lisinopril 5mg daily; hold -ENT consult for angioedema -Dex q 6 h, plan for scope at bedside in ED; continue famotidine and benadryl, calamine for skin -Dermatology consult -No vasculitic or cellulitic in nature of like an steatotic eczema? however PCU/tele NPO until ENT eval #Bilateral lower extremity skin rash #BLE edema Nonpitting BNP in am Recent echo without diastolic dysfunction -Doesn't appear cellulitic but seems to resemble contact dermatitis to a degree with erythema, excoriations and small areas of papule like confluences on ankle and scattered along extremity. 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 All of the aforementioned completed outside of collaborating with the assigned advanced practitioner for a full treatment plan. I have reviewed the advanced practitioner's documentation, and I agree with, and take responsibility for the plan of care (1) Angioedema Encounter type: initial encounter Qualified Code(s): T78.3XXA - Angioneurotic edema, initial encounter (8) Anemia Anemia type: unspecified type Qualified Code(s): D64.9 - Anemia, unspecified
[2023-08-06 11:43] LABS: Appearance Urine Clear (Clear); Bacteria Urine Automated 4+ (None Seen); Bilirubin Urine Negative (Negative); Blood Urine Negative (Negative); Cast Urine Automated 0-2 /lpf (0-2); Color Urine Yellow; Epithelial Cell Urine Auto 0-2 /hpf (0-2); Glucose Urine UA Negative (Negative); Ketones Urine Negative (Negative); Leukocyte Esterase Urine Trace (Negative); Nitrite Urine Negative (Negative); Protein Urine Negative (Negative); RBC Urine Automated 0-2 /hpf (0-2); Specific Gravity Urine 1.006 (1.000-1.030); Urobilinogen Urine Negative (Negative); WBC Urine Automated 0-5 /hpf (0-5); pH Urine 5.5 (4.5-7.5)
--- NOTE | 2023-08-06 13:09 | ENT Consultation ---
Date of Consultation August 06, 2023 Assessment & Plan (1) Angioedema: Nothing to do from ENT standpoint as patient stable and in no airways distress. Scope not avaiable as requested. Patient should be on 10mg IV dex q6 or 8 while in house, dc on oral steroid with taper. If airway worsens can call anesthesia to intubate, but she already appears to be clinically improving Plan see above. No ENT f/u needed Supervising Physician Co-Signing Physician Notes I have seen and discussed the case with the collaborating advanced practitioner. I agree with the above H&P. I have reviewed and confirmed the patients medical history, the findings on physical examination, and the patients diagnosis and treatment plan with Adriana SALVADOR and agree with the information documented. GENERAL APPEARANCE: AxOx4, generally well, not acutely ill no distress HEENT: NC, AT. MMM. EOMI--right pupil 4-5mm > left pupil 2mmin size, upper lip notable swollen, no airway obstruction on visual exam, no speech disturbance NECK: Supple without lymphadenopathy. No stiffness or restricted ROM. HEART: Normal rate and regular rhythm, normal S1/S1, no m/r/g LUNGS: CTAB, moving air well. No crackles or wheezes are heard. ABDOMEN: Soft, nontender, nondistended with good bowel sounds heard. BACK: diffuse excoriations, no visible urticaria or maculopapular rashes EXTREMITIES: Without cyanosis, clubbing or edema. NEUROLOGICAL: Grossly nonfocal. Alert and oriented, moving all 4 extremities. CN not formally tested but appear grossly intact. Observed to ambulate with normal gait. Skin: Warm and dry without any rash. #Lip Angioedema with concern for airway involvement #Diffuse Pruritus -Concern for allergic reaction--however, unable to elucidate any new contact with detergents, lotions, washes, grass/outdoor exposure. Denies new medications. 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 -On lisinopril 5mg daily; hold -ENT consult for angioedema -Dex q 6 h, plan for scope at bedside in ED; continue famotidine and benadryl, calamine for skin -Dermatology consult -No vasculitic or cellulitic in nature of like an steatotic eczema? however PCU/tele NPO until ENT eval #Bilateral lower extremity skin rash #BLE edema Nonpitting BNP in am Recent echo without diastolic dysfunction -Doesn't appear cellulitic but seems to resemble contact dermatitis to a degree with erythema, excoriations and small areas of papule like confluences on ankle and scattered along extremity. -Patient suspects correlation to UTI as this is the second time she has experienced this rash -Derm as above, plan to discuss #Mild eosinophilla No fevers or chills, low suspicion for DRESS, no muscosal involvement, no skin sloughing Repeat CBC with diff in am #Acute cystitis #CKD III #Recurrent UTI iso congenital ureterocele and prior pyelo -Recent flank pain which indicates infection as she doesn't "feel" the other LUTS symptoms -Culture with citrobacter, prescribed keflex, not yet started -CTX for now #DMTII 06/2023 7.3% rest of plan as above I spent a total of 35 minutes coordinating, documenting, and providing care for this patient excluding time spent in the performance of separately billed services. All of the aforementioned completed outside of collaborating with the assigned advanced practitioner for a full treatment plan. I have reviewed the advanced practitioner's documentation, and I agree with, and take responsibility for the plan of care History of Present Illness Reason for Consultation: Angioedema History of Present Illness See ED note Allergies Allergy/AdvReac Type Severity Reaction Status Date / Time bee venom protein (honey bee) Allergy Severe SWELLING Verified 05/10/23 13:31 AT SITE, HARD TO BREATHE Sulfa (Sulfonamide Allergy Severe From a b/p Verified 05/10/23 13:31 Antibiotics) med (told never take sulfa), RASH Cipro Allergy Unknown 0 Verified 08/27/17 01:28 ciprofloxacin [Cipro] Allergy Unknown 0 Verified 05/10/23 13:31 nitrofurantoin AdvReac Vomiting Verified 05/10/23 13:31 [From Macrobid] Home Medications Medication Instructions Recorded Confirmed Type amlodipine 10 mg tablet 10 mg PO DAILY 05/10/23 08/06/23 History aspirin 81 mg tablet,delayed 81 mg PO DAILY 05/10/23 08/06/23 History release atenolol 25 mg tablet 25 mg PO DAILY 05/10/23 08/06/23 History atorvastatin 40 mg tablet 40 mg PO HS 05/10/23 08/06/23 History brimonidine 0.2 %-timolol 0.5 % 1 drp ophthalmic (eye) BID 05/10/23 08/06/23 History eye drops cholecalciferol (vitamin D3) 25 25 mcg PO DAILY 05/10/23 08/06/23 History mcg (1,000 unit) tablet (Vitamin D3) dorzolamide 2 % eye drops 1 drp OPB BID 05/10/23 08/06/23 History faricimab-svoa 6 mg/0.05 mL 6 mg intravitreal DIRECTED PRN 05/10/23 08/06/23 History intravitreal solution (Vabysmo) .. folic acid 1 mg tablet 1 mg PO DAILY 05/10/23 08/06/23 History glipizide 5 mg tablet 2.5 mg PO DAILY 05/10/23 08/06/23 History lisinopril 5 mg tablet 5 mg PO DAILY 05/10/23 08/06/23 History metformin 500 mg tablet,extended 500 mg PO DAILYBD 05/10/23 08/06/23 History release 24 hr netarsudil 0.02 %-latanoprost 1 drp OPB HS 05/10/23 08/06/23 History 0.005 % eye drops ([place]) Patient History Medical History Pyelonephritis Hydronephrosis Complicated UTI (urinary tract infection) HTN (hypertension) Dyslipidemia DM type 2 (diabetes mellitus, type 2) Surgical History History of hysterectomy History of cataract surgery Family History Mother Diabetes CHF (congestive heart failure) Father Hypertension COPD (chronic obstructive pulmonary disease) Social History Smoking Status: Never smoker Hx Alcohol Use: No Hx Substance Use: No Preferred Language: Bahamian Feels Safe at Home: Yes Review of Systems Review of Systems: negative except per HPI Physical Exam Physical Exam: Specifically asked for the flexible nasopharyngoscope to be at the bedside. It was not available thus I was unable to scope the patient. AAOx3 NAD no retractions or stridor floor of mouth soft, neck soft, no swelling of the tongue, minimal lip swelling already much improved per patient Results & Data Vital Signs (Past 12 Hours) Vital Signs Temp Pulse Pulse Resp BP BP Pulse Ox 08/06/23 12:55 63 08/06/23 12:43 65 08/06/23 12:31 63 16 08/06/23 12:31 161/68 H 08/06/23 12:30 60 17 08/06/23 12:00 59 L 16 96 08/06/23 11:30 58 L 17 94 08/06/23 11:30 169/67 H 08/06/23 11:21 62 17 08/06/23 11:10 58 L 14 92 08/06/23 11:00 133/96 08/06/23 11:00 60 25 H 93 08/06/23 10:50 59 L 13 92 08/06/23 10:48 57 L 20 139/59 L 91 08/06/23 10:40 59 L 20 94 08/06/23 10:30 58 L 10 L 93 08/06/23 10:30 139/59 L 08/06/23 10:20 56 L 21 95 08/06/23 10:20 136/63 08/06/23 10:20 62 20 136/63 95 08/06/23 10:10 57 L 21 96 08/06/23 10:00 58 L 17 95 08/06/23 09:50 60 14 94 08/06/23 09:45 59 L 20 94 08/06/23 09:45 132/65 08/06/23 09:44 58 L 20 132/65 95 08/06/23 09:40 57 L 19 97 08/06/23 09:32 63 20 156/65 H 98 08/06/23 09:32 97 08/06/23 09:30 73 20 95 08/06/23 09:20 57 L 16 94 08/06/23 09:10 55 L 17 08/06/23 09:00 56 L 18 97 08/06/23 08:58 54 L 20 156/65 H 97 08/06/23 08:58 57 L 08/06/23 08:55 55 L 20 97 08/06/23 08:44 36.5 C 56 L 18 155/72 H 98 O2 Del Method 08/06/23 12:55 08/06/23 12:43 08/06/23 12:31 08/06/23 12:31 08/06/23 12:30 08/06/23 12:00 08/06/23 11:30 08/06/23 11:30 08/06/23 11:21 08/06/23 11:10 08/06/23 11:00 08/06/23 11:00 08/06/23 10:50 08/06/23 10:48 Room Air 08/06/23 10:40 08/06/23 10:30 08/06/23 10:30 08/06/23 10:20 08/06/23 10:20 08/06/23 10:20 Room Air 08/06/23 10:10 08/06/23 10:00 08/06/23 09:50 08/06/23 09:45 08/06/23 09:45 08/06/23 09:44 Room Air 08/06/23 09:40 08/06/23 09:32 Room Air 08/06/23 09:32 Room Air 08/06/23 09:30 08/06/23 09:20 08/06/23 09:10 08/06/23 09:00 08/06/23 08:58 Room Air 08/06/23 08:58 08/06/23 08:55 08/06/23 08:44 Room Air (1) Angioedema Encounter type: initial encounter Qualified Code(s): T78.3XXA - Angioneurotic edema, initial encounter
--- NOTE | 2023-08-06 13:13 | Electrocardiogram Report ---
Test Reason : Blood Pressure : / mmHG Vent. Rate : 056 BPM Atrial Rate : 056 BPM P-R Int : 192 ms QRS Dur : 082 ms QT Int : 420 ms P-R-T Axes : 042 -12 028 degrees QTc Int : 405 ms Sinus bradycardia Minimal voltage criteria for LVH, may be normal variant ( R in aVL ) Borderline ECG When compared with ECG of 10-MAY-2023 10:59, No significant change was found Confirmed by Estuardo Avery ([id number]) on 08/06/2023 1:13:16 PM Referred By: Ghislaine Hernandez Confirmed By:Estuardo Avery
[2023-08-06 13:15] LABS: Ferritin 97.6 ng/ml (8-388)
[2023-08-06 13:21] LABS: Folate (Folic Acid),Ser orPlas > 22.30 ng/ml (>5.38)
[2023-08-06 13:22] LABS: Vitamin B12 1315 pg/ml (180-914)
[2023-08-06] MEDS ORDERED: ACETAMINOPHEN 325 MG TAB PO PRN (14:02)
[2023-08-06] MEDS ORDERED: GLUCOSE 10 TAB/TUBE PO PRN (14:02)
[2023-08-06] MEDS ORDERED: GLUCAGON FOR INJ 1 MG VIAL SQ PRN (14:02)
[2023-08-06] MEDS ORDERED: PHARMACY GLYCEMIC MGMT CONSULT PRN (14:02)
[2023-08-06] MEDS ORDERED: CALAMINE/PRAMOXINE LOTION 180 APPLN/180 ML BTL EXT PRN (14:02)
[2023-08-06] MEDS ORDERED: hydrALAZINE HCL 20 MG/ML VIAL IV PRN (14:02)
[2023-08-06] MEDS ORDERED: ONDANSETRON INJ 2 MG/ML 2 ML VIAL IV PRN (14:02)
[2023-08-06] MEDS ORDERED: CARBOHYDRATES FOR HYPOGLYCEMIA PO PRN (14:02)
[2023-08-06] MEDS ORDERED: POLYETHYLENE (MIRALAX) 17 GM PACK PO PRN (14:02)
[2023-08-06] MEDS ORDERED: GLUCOSE 40% GEL 15 GM TUBE PO PRN (14:02)
[2023-08-06] MEDS ORDERED: DEXTROSE 50% 50 ML SYRINGE IV PRN (14:02)
[2023-08-06] MEDS ORDERED: ALUMINUM/MAGNESIUM SUSP 30 ML UDC PO PRN (14:02)
--- NOTE | 2023-08-06 14:30 | Pharmacy Report ---
Pharmacy Glycemic Short Note 2 - Date of Service August 06, 2023 - Glycemic Short BSG Results (Last 24 hours): 08/06/23 09:13 Glucose 136 H OUTPATIENT ANTIDIABETIC REGIMEN: * glipizide 2.5mg PO daily * metformin 500mg PO QDB * HBA1c 7.3% (06/2023) ASSESSMENT: * Stephanie is 72 YOF admitted with angioedema and lower extremity cellulitis with a history of type 2 diabetes mellitus. Pharmacy has been consulted for gl ycemic management while inpatient. * BSG on admission within goal range, given 10mg IV dexamethasone for angioedema and continued every 6 hours. Will initiate basal insulin scaled based on BSG twice daily up to a weight based stress of 2 while NPO (plan to increase to a weight based stress of 3 once diet advanced). * Novolog initiated at a weight based stress of 3 PLAN FOR INPATIENT GLYCEMIC CONTROL: * Hold outpatient oral diabetes medications * Basal insulin * Lantus 0-15 units SQ BID (see eMAR for additional details) * Bolus insulin * NovoLog per scale ACHS or Q6hrs while NPO * Goal Range: Low 110 mg/dL - High 140 mg/dL * Correction Factor: 20 mg/dL/unit * Nutritional / Prandial insulin per carb ratio of 1 unit per 6 grams CHO consumed
[2023-08-06] MEDS: LANTUS PER UNIT CHARGE SC SCH (15:21)
[2023-08-06] MEDS: INSULIN ASPART PER UNIT CHARGE SC SCH (15:21)
[2023-08-06] MEDS: dexAMETHasone 10 MG in SYRINGE 0 ML IV SCH (15:22)
[2023-08-06] MEDS ORDERED: DEXAMETHASONE SOD INJ 4 MG/ML VIAL IV SCH (15:30)
[2023-08-06] MEDS: cefTRIAXone SODIUM 2,000 MG/50 ML BAG IV SCH (15:58)
[2023-08-06] MEDS: ATORVASTATIN 40 MG TAB PO SCH (20:04)
[2023-08-06] MEDS: BRIMONIDINE TARTRATE 0.2% 5ML OP SCH (20:06)
[2023-08-06] MEDS: diphenhydrAMINE 50 MG/ML VIAL IV SCH (20:09)
[2023-08-06] MEDS: HEPARIN SOD 5,000 UNIT/0.5 ML VIAL SQ SCH (20:13)
[2023-08-06] MEDS: DORZOLAMIDE HCL 2% OPH SOLN 10 ML BTL OPB SCH (20:14)
[2023-08-06] MEDS: FAMOTIDINE 20MG IV PUSH 20 MG/5 ML SYR IV SCH (20:16)
[2023-08-06] MEDS: TIMOLOL MALEATE 0.5% OP SOLN 5 ML BTL OP SCH (20:18)
[2023-08-06] MEDS ORDERED: Nursing to Pharmacy Communication SCH (20:30)
[2023-08-06] MEDS ORDERED: LANTUS PER UNIT CHARGE SQ SCH (21:00)
--- OUTSIDE RECORDS SUMMARY | 2023-08-06 23:40 | External Medical Summary | Summary of Care ---
Author Name Unknown Organization [facility] Address [address] [place] [address] Phone [phone] Care Team Providers Care Dental Laboratory Supervisor Name Role Phone Ghislaine Hernandez Primary Care Provider [phone] Reason for Visit * Reason Onset Date Comments Test Results 08/03/2023 Encounter Details Date Type Department Care Team (Late st Contact Info) Description 08/03/2023 Telephone Nephrology, Luis Carney [address] [facility] [place] [address] Zemaitis, Jennifer Manzano PA-C [address] [facility] [place] [address] Test Results Allergies Active Allergy Reactions Criticality Noted Date Comments Bee Venom Edema airway,Edema Other High 01/15/2014 Eye swelled shut Ciprofloxacin Other (Please comment) Medium 11/24/2016 Trouble breathing, nausea Furosemide Rash 08/02/2023 Nitrofurantoin 11/08/2018 vomiting Sulfa Antibiotics Hives,Other (Please comment) 01/15/2014 Boil/Acne like sores on abdomen documented as of this encounter (statuses as of 08/06/2023) Medications Medication Sig Dispensed Refills Start Date [...] goal of less than 7.0% ([facility]) Use to test blood sugar once daily [...] as of this encounter (statuses as of 08/06/2023) Active Problems Problem Noted Date Diagnosed Date [...] as of this encounter (statuses as of 08/06/2023) Resolved Problems Problem Noted Date Diagnosed Date [...] as of this encounter (statuses as of 08/06/2023) Immunizations Name Administration Dates Next Due COVID-19 [...] Telephone Encounter - Teresita Neely LPN - 08/06/2023 9:03 AM EDT See Final culture results Thank you * Telephone Encounter - Teresita Neely LPN [...] [facility], Endoscopy Room [facility] [address] [place] [id number] Brent Alcantara MD [address] [place] [address] 4 11:15 AM EDT - 4 11:45 AM EDT Surgery ENDO [facility], End[facility] Room [facility] [address] [place] [phone] Brent Alcantara MD [address] [place] [address] ESOPHAGOGASTRODUODENOSCOPY (EGD), FLEXIBLE, TRANSORAL, DIAGNOSTIC 4 1:15 PM EDT Office Visit Ophthalmology, [facility] [address] [place] [address] Nitish Crooks, DO [address] [place] [address] 4 9:00 AM EDT Imaging Radiology [address] [place] [address] 4 1:00 PM EDT Office Visit [facility] [address] [place] [address] Ghislaine Hernandez, DO [address] [place] [address] 5 1:00 PM EDT Office Visit [facility] [address] [place] [address] Ghislaine Hernandez, DO [address] [place] [address] Scheduled Procedures Name Priority Associated Diagnoses Date/Ti [...] Additional history exists CKD HGB USE SMARTSET 81134 04/06/202404/06, 04/06/2023, 03/30/2023, Additional history exists Fecal Occult Blood Test 04/11/2024 04/11/2023, 10/05 DXA Scan 04/30/2024 04/30/2017 CKD PHOS USE SMARTSET 10855 07/03/202406/08, 07/11/2022, 06/14/2021, Additional history exists Diabetic Foot Exam 07/03/2024 07/04/2023, 0 06/28/2022, 06/14/2021, Additional history exists DTaP,Tdap,and Td Vaccines (2 - Td or Tdap) 07/17/2024 07/17/2014 Albumin/Creatinine Ratio 08/01/20242 024, 07/06/2023, 07/11/2022, Additional history exists Colonoscopy [...] this encounter Medical Devices Implanted Type Area Dry Can Tender Device Identifier Shelf Expiration Date Model / Serial / Lot Shunt Tube Glaucoma Ahmed Fp7 - [id number] - [id number] Implanted:Qty: 1 on 11/17/2022 by Carolina Ramirez MD at OR [facility] Right: Eye NEW [email or web address] [id number] 09/17/2024 7 / [id number] / [id number] Graft [place] Cornea Split - [id number] Implanted:Qty: 1 on 11/17/2022 by Carolina Ramirez MD at OR [facility] Right: Eye [employer] 09/11/2024 O-HH1 / [id number] / [id number] documented as of this encounter Advance Directives Latest Code Status on File Code Status Date Activated Date Inactivated Comments Full Code 07/28/2014 3:21 PM 07/31/2014 4:03 PM This order reflects the patients wishes and were consensually agreed upon. Care Teams Dental Laboratory Supervisor Relationship Specialty Start Date End Date Ghislaine Hernandez DO [address] [facility] [place] [address] PCP - General Family Medicine 07/09/14 documented as of this encounter
[2023-08-07] MEDS: INSULIN ASPART PER UNIT CHARGE SC SCH ×2 (00:18→12:54)
[2023-08-07 06:27] LABS: Basophils # (auto) 0.01 K/uL (0.00-0.20); Basophils % (auto) 0.1 %; Hematocrit (blood only) 30.2 % (37.0-47.0); Hemoglobin 9.7 g/dl (12.0-16.0); Immature Granulocytes # (auto) 0.04 K/uL (0.01-0.20); Immature Granulocytes % (auto) 0.6 %; Lymphocytes # (auto) 1.37 K/uL (1.20-3.40); Lymphocytes % (auto) 19.3 %; Mean Corpuscular Hgb Conc 32.1 g/dL (32.0-36.0); Mean Corpuscular Volume 87.3 fL (80.0-100.0); Mean Platelet Volume 9.5 fL (9.4-12.4); Monocytes # (auto) 0.07 K/uL (0.11-0.59); Neutrophils # (auto) 5.61 K/uL (1.40-6.50); Platelet Count 275 K/uL (130-400); RDW Coefficient of Variation 13.8 % (11.5-14.5); RDW Standard Deviation 43.8 fL (36.4-46.3); Red Blood Count 3.46 M/uL (4.20-5.40)
[2023-08-07 07:05] LABS: Estimated Average Glucose 157 mg/dl; Hemoglobin A1C 7.1 % (4.5-5.6)
[2023-08-07 07:23] LABS: Albumin Level 3.8 gm/dl (3.4-5.0); Bilirubin,Total 0.3 mg/dl (0.2-1.0); Calcium 8.8 mg/dl (8.6-10.3); Magnesium 2.3 mg/dl (1.7-2.4); Potassium 4.4 mmol/L (3.5-5.1)
[2023-08-07 07:29] LABS: Albumin Globulin Ratio 1.3 (0.9-2); BUN Creatinine Ratio 33.6 (10-20); Creatinine Clr Calc Pharmacy 52.4 ml/min; Est GFR (African American) 60.5 ml/min; Est GFR (Non-African American) 52.2 ml/min; Globulin 2.9 gm/dl (2.5-4.0); Total Protein 6.7 gm/dl (6.0-8.3)
[2023-08-07] MEDS: CHOLECALCIFEROL 25 MCG (1000 UNITS) TAB PO SCH (08:04)
[2023-08-07] MEDS: amLODIPine BESYLATE 5 MG TAB PO SCH (08:04)
[2023-08-07] MEDS: ATENOLOL 25 MG TABLET PO SCH (08:04)
[2023-08-07] MEDS: ASPIRIN 81 MG ECTAB PO SCH (08:05)
[2023-08-07] MEDS: FOLIC ACID 1 MG TAB PO SCH (08:05)
[2023-08-07] MEDS ORDERED: Nursing to Pharmacy Communication SCH (08:30)
--- NOTE | 2023-08-07 15:44 | Hospitalist Progress Note ---
Date of Service August 07, 2023 Assessment & Plan (1) Angioedema: (2) Dermatitis: (3) Complicated UTI (urinary tract infection): (4) DM type 2 (diabetes mellitus, type 2): (5) HTN (hypertension): (6) Dyslipidemia: (7) CKD (chronic kidney disease) stage 3, GFR 30-59 ml/min: (8) Anemia: Plan Patient is a 72 yr old female with H/O HTN, HLD, T2DM, CKD-3, hx of recurrent UTI and glaucoma who presents to ED 2/2 difficulty swallowing, swallowing of upper lip and rash to legs. The rash on her leg started 4 days ago. Angioedema First episode ? Secondary to lisinopril Complement workup pending Lisinopril discontinued Continue Decadron, famotidine, Benadryl Appreciate ENT input Clinically improving Consider allergy immunology inpatient Vs outpatient Generalized petechial rash Less likely lower extremity cellulitis Unclear etiology ECHO from 06/02 showed Preserved EF, NO diastolic dysfunction Normal BNP Empirically on IV Rocephin Also on steroids Dermatology consulted Further workup of lower extremity edema to be done as outpatient Urinary tract infection Outpatient urine culture grew > 100k citrobacter freundiii in setting of flank pain on 08/01 Urine culture growing gram-negative bacilli Blood cultures--no growth to date Empirically on Rocephin CKD III Mild metabolic acidosis Baseline cr 1.5-1.8 Monitor renal function Avoid nephrotoxic agents as able DM II HbA1c 7.1 hold glipizide/metformin Continue insulin while hospitalized Glycemic pharmacist consulted HTN continue amlodipine, atenolol Lisinopril discontinued Monitor BP HLD continue statin Anemia Folate deficiency continue folic acid supplementation Monitor CBC DVT Px: SQ Heparin Code Status FULL CODE Admission and Anticipated Discharge Date Admission Date: August 06, 2023 Subjective Patient is seen and examined at bedside Lip swelling slowly improving Reports generalized rash with itching Flank pain resolved Able to tolerate food with no issues Denies any chest pain, dyspnea, nausea, vomiting, abdominal pain, hematuria, dysuria Review of Systems Review of Systems: All systems reviewed & are unremarkable except as noted in Subjective Physical Exam Physical Exam: Physical Exam: Vitals signs as noted above General Appearance:Obese, no apparent distress Head: normocephalic, Atraumatic Eyes: normal inspection, EOMI Neck: supple, Trachea midline Respiratory/Chest: Normal breath sounds, CTA, No accessory muscle use Cardiovascular: S1, S2, No murmur Abdomen/GI:Soft, Non tender, Bowel sounds present Extremities/Musculoskeletal:normal inspection, 1+ B/L LE Non pitting edema, + chronic venous stasis changes Neurologic/Psych:AAOX3, grossly no focal neurological deficits Skin: normal color, warm,+ generalized petechial rash Results & Data Results & Data Vital Signs (Past 12 Hours) Vital Signs Temp Pulse Pulse Resp BP Pulse Ox O2 Del Method 08/07/23 12:32 36.5 C 54 L 18 120/71 98 Room Air 08/07/23 09:06 65 08/07/23 08:24 36.6 C 114 H 18 153/54 H 92 Room Air 08/07/23 08:00 65 Laboratory Results Short CBC 08/07/23 Range/Units 05:32 WBC 7.10 (4.8-10.8) K/ul Hgb 9.7 L (12.0-16.0) g/dl Hct 30.2 L (37.0-47.0) % Plt Count 275 (130-400) K/uL BMP 08/07/23 05:32 Sodium 143 Potassium 4.4 Chloride 112 H Carbon Dioxide 20 L BUN 36 H Creatinine 1.07 D Glucose 165 H Calcium 8.8 Liver Function 08/07/23 Range/Units 05:32 Total Bilirubin 0.3 (0.2-1.0) mg/dl AST 13 (13-39) U/L ALT 9 (7-52) U/L Alkaline Phosphatase 65 (34-104) U/L Albumin 3.8 (3.4-5.0) gm/dl (1) Angioedema Encounter type: initial encounter Qualified Code(s): T78.3XXA - Angioneurotic edema, initial encounter (8) Anemia Anemia type: unspecified type Qualified Code(s): D64.9 - Anemia, unspecified
[2023-08-07] MEDS: diphenhydrAMINE HCL 25 MG/10 ML UDC PO SCH (15:49)
--- NOTE | 2023-08-07 16:14 | Dermatology Consultation ---
Date of Consultation August 07, 2023 Assessment & Plan (1) Stasis dermatitis of both legs: Stasis dermatitis with likely component of lipodermatosclerosis involving the bilateral lower legs - [id number]; no sign of secondary infection. Her episode of angioedema and coexisting eczema on the back are not likely directly related. Recommend the followin) Start mometasone 0.1% ointment to areas of the lower legs and back twice daily x 2 weeks. 2) Schedule follow-up with dermatology as an outpatient 3 to 4 weeks following discharge. She will likely need venous ultrasounds of the lower legs to assess for reflux that may be amenable to intervention. 3) Thank you for the consult. Call with any questions. Present on Admission?: Yes History of Present Illness Reason for Consultation: Rash on legs and back. Requesting Physician: Adriana Wright PA-C Attending Physician: Inocencio Cortez MD History of Present Illness Patient is a 72 y/o WF with past medical history significant for hypertension, hyperlipidemia, type 2 diabetes, stage III chronic kidney disease and glaucoma admitted to [facility] on 08/06/2023 with swelling of the tongue/upper lip and difficulty swallowing. She also had developed a rash on her legs that developed 3 to 4 days prior. I have been consulted for evaluation of rash. Patient reports that rash started with increased swelling and itching involving the bilateral lower legs last . She treated at home with Benadryl cream, but it was not significantly beneficial. Swelling in the legs continued to worsen. She denies any changes in personal care products prior to onset. She denies any other changes in her health aside from the eventual development of lip and tongue swelling 3 days later, which seems unrelated based on her reported history. She does report a history of "cellulitis" on the bilateral lower legs in March 2023. She reports that she was treated with antibiotics at that time, and the rash gradually improved. She reports a longstanding history of eczema. Since admission she was started on systemic steroids for her angioedema, and this has led to improvement/resolution of prior itching. She is not applying anything to the skin currently. She washes at home with the goats milk soap and uses a moisturizer from [employer] (unknown name). She denies breaking out elsewhere on the body aside from the back, which also became itchy following development of rash on her legs. No close contacts with similar eruption. Allergies Allergy/AdvReac Type Severity Reaction Status Date / Time bee venom protein (honey bee) Allergy Severe SWELLING Verified 05/10/23 13:31 AT SITE, HARD TO BREATHE Sulfa (Sulfonamide Allergy Severe From a b/p Verified 05/10/23 13:31 Antibiotics) med (told never take sulfa), RASH Cipro Allergy Unknown 0 Verified 08/27/17 01:28 ciprofloxacin [Cipro] Allergy Unknown 0 Verified 05/10/23 13:31 nitrofurantoin AdvReac Vomiting Verified 05/10/23 13:31 [From Macrobid] Home Medications Medication Instructions Recorded Confirmed Type amlodipine 10 mg tablet 10 mg PO DAILY 05/10/23 08/06/23 History aspirin 81 mg tablet,delayed 81 mg PO DAILY 05/10/23 08/06/23 History release atenolol 25 mg tablet 25 mg PO DAILY 05/10/23 08/06/23 History atorvastatin 40 mg tablet 40 mg PO HS 05/10/23 08/06/23 History brimonidine 0.2 %-timolol 0.5 % 1 drp ophthalmic (eye) BID 05/10/23 08/06/23 History eye drops cholecalciferol (vitamin D3) 25 25 mcg PO DAILY 05/10/23 08/06/23 History mcg (1,000 unit) tablet (Vitamin D3) dorzolamide 2 % eye drops 1 drp OPB BID 05/10/23 08/06/23 History faricimab-svoa 6 mg/0.05 mL 6 mg intravitreal DIRECTED PRN 05/10/23 08/06/23 History intravitreal solution (Vabysmo) .. folic acid 1 mg tablet 1 mg PO DAILY 05/10/23 08/06/23 History glipizide 5 mg tablet 2.5 mg PO DAILY 05/10/23 08/06/23 History lisinopril 5 mg tablet 5 mg PO DAILY 05/10/23 08/06/23 History metformin 500 mg tablet,extended 500 mg PO DAILYBD 05/10/23 08/06/23 History release 24 hr netarsudil 0.02 %-latanoprost 1 drp OPB HS 05/10/23 08/06/23 History 0.005 % [facility] Patient History Medical History (Updated 08/07/23 @ 16:17 by Esau Escobar MD) Stasis dermatitis of both legs Pyelonephritis Hydronephrosis Complicated UTI (urinary tract infection) HTN (hypertension) Dyslipidemia DM type 2 (diabetes mellitus, type 2) Surgical History History of hysterectomy History of cataract surgery Family History Mother Diabetes CHF (congestive heart failure) Father Hypertension COPD (chronic obstructive pulmonary disease) Social History Smoking Status: Never smoker Hx Alcohol Use: Yes Alcohol type: wine Hx Substance Use: No Preferred Language: Malaysian Communication Ability: Effective Oncology Physician Required: No Beliefs That Will Affect Care: None Current Living Situation: Alone Other Information That Helps Us Care for You: No Feels Safe at Home: Yes Safety Concerns: Feels Safe At This Time Assistive Devices: None Review of Systems Review of Systems: All systems reviewed & are unremarkable except as noted in Subjective Physical Exam Physical Exam: General Appearance:Well developed, well-nourished and in no acute distress Psych:Alert, Oriented and Appropriate Skin Type:2 Face:no abnormalities noted. Oral mucosa: no abnormalities noted. Neck: no abnormalities noted. Right Lower Extremity:poorly-demarcated, erythematous, scaly thin plaques on the franco/calf; +bound-down, indurated hyperpigmented plaque on the ankle; +associated inverted wine bottle configuration of the lower leg Left Lower Extremity:poorly-demarcated, erythematous, scaly thin plaques on the franco/calf; +bound-down, indurated hyperpigmented plaque on the ankle; +associated inverted wine bottle configuration of the lower leg Back:poorly-demarcated, erythematous, scaly thin plaques (excoriated) Buttocks/Groin/Genitalia: not examined. Right Upper Extremity:no abnormalities noted. Left Upper Extremity:no abnormalities noted. Chest/Breast/Axillae:no abnormalities noted. Abdomen:no abnormalities noted. Nails:no abnormalities noted. Results & Data Vital Signs (Past 12 Hours) Vital Signs Temp Pulse Pulse Resp BP Pulse Ox O2 Del Method 08/07/23 16:09 36.4 C L 102 H 18 144/56 H 95 Room Air 08/07/23 12:32 36.5 C 54 L 18 120/71 98 Room Air 08/07/23 09:06 65 08/07/23 08:24 36.6 C 114 H 18 153/54 H 92 Room Air 08/07/23 08:00 65 Laboratory Results 08/07/23 08/07/23 08/07/23 Range/Units 12:08 07:53 05:56 WBC (4.8-10.8) K/ul RBC (4.20-5.40) M/uL Hgb (12.0-16.0) g/dl Hct (37.0-47.0) % MCV (80.0-100.0) fL MCH (25.0-34.0) pg MCHC (32.0-36.0) g/dL RDW Std Deviation (36.4-46.3) fL RDW Coeff of Jessy (11.5-14.5) % Plt Count (130-400) K/uL MPV (9.4-12.4) fL Immature Gran % (Auto) % Neut % (Auto) % Lymph % (Auto) % [place] % (Auto) % Eos % (Auto) % Baso % (Auto) % Neut # (Auto) (1.40-6.50) K/uL Lymph # (Auto) (1.20-3.40) K/uL [place] # (Auto) (0.11-0.59) K/uL Eos # (Auto) (0.00-0.50) K/uL Baso # (Auto) (0.00-0.20) K/uL Immature Gran # (Auto) (0.01-0.20) K/uL Sodium (136-145) mmol/L Potassium (3.5-5.1) mmol/L Chloride (98-107) mmol/L Carbon Dioxide (21-32) mmol/L Anion Gap (3-11) BUN (6-23) mg/dl Creatinine (0.6-1.2) mg/dl Est Cr Clr Drug Dosing ml/min Est GFR ( Amer) ml/min Est GFR (Non-Af Amer) ml/min BUN/Creatinine Ratio (10-20) Glucose (70-99(Fasting)) mg/dl POC Glucose 216 H 162 H 159 H (70-99) mg/dl Estimat Average Glucose mg/dl Hemoglobin A1c (4.5-5.6) % Calcium (8.6-10.3) mg/dl Magnesium (1.7-2.4) mg/dl Total Bilirubin (0.2-1.0) mg/dl AST (13-39) U/L ALT (7-52) U/L Alkaline Phosphatase (34-104) U/L Total Protein (6.0-8.3) gm/dl Albumin (3.4-5.0) gm/dl Globulin (2.5-4.0) gm/dl Albumin/Globulin Ratio (0.9-2) 08/07/23 08/07/23 08/06/23 Range/Units 05:32 00:09 20:22 WBC 7.10 (4.8-10.8) K/ul RBC 3.46 L (4.20-5.40) M/uL Hgb 9.7 L (12.0-16.0) g/dl Hct 30.2 L (37.0-47.0) % MCV 87.3 (80.0-100.0) fL MCH 28.0 (25.0-34.0) pg MCHC 32.1 (32.0-36.0) g/dL RDW Std Deviation 43.8 (36.4-46.3) fL RDW Coeff of Jessy 13.8 (11.5-14.5) % Plt Count 275 (130-400) K/uL MPV 9.5 (9.4-12.4) fL Immature Gran % (Auto) 0.6 % Neut % (Auto) 79.0 % Lymph % (Auto) 19.3 % [place] % (Auto) 1.0 % Eos % (Auto) 0.0 % Baso % (Auto) 0.1 % Neut # (Auto) 5.61 (1.40-6.50) K/uL Lymph # (Auto) 1.37 (1.20-3.40) K/uL [place] # (Auto) 0.07 L (0.11-0.59) K/uL Eos # (Auto) 0.00 (0.00-0.50) K/uL Baso # (Auto) 0.01 (0.00-0.20) K/uL Immature Gran # (Auto) 0.04 (0.01-0.20) K/uL Sodium 143 (136-145) mmol/L Potassium 4.4 (3.5-5.1) mmol/L Chloride 112 H (98-107) mmol/L Carbon Dioxide 20 L (21-32) mmol/L Anion Gap 11 (3-11) BUN 36 H (6-23) mg/dl Creatinine 1.07 D (0.6-1.2) mg/dl Est Cr Clr Drug Dosing 52.4 ml/min Est GFR ( Amer) 60.5 ml/min Est GFR (Non-Af Amer) 52.2 ml/min BUN/Creatinine Ratio 33.6 H (10-20) Glucose 165 H (70-99(Fasting)) mg/dl POC Glucose 170 H 142 H (70-99) mg/dl Estimat Average Glucose 157 mg/dl Hemoglobin A1c 7.1 H (4.5-5.6) % Calcium 8.8 (8.6-10.3) mg/dl Magnesium 2.3 (1.7-2.4) mg/dl Total Bilirubin 0.3 (0.2-1.0) mg/dl AST 13 (13-39) U/L ALT 9 (7-52) U/L Alkaline Phosphatase 65 (34-104) U/L Total Protein 6.7 (6.0-8.3) gm/dl Albumin 3.8 (3.4-5.0) gm/dl Globulin 2.9 (2.5-4.0) gm/dl Albumin/Globulin Ratio 1.3 (0.9-2) 08/06/23 Range/Units 16:49 WBC (4.8-10.8) K/ul RBC (4.20-5.40) M/uL Hgb (12.0-16.0) g/dl Hct (37.0-47.0) % MCV (80.0-100.0) fL MCH (25.0-34.0) pg MCHC (32.0-36.0) g/dL RDW Std Deviation (36.4-46.3) fL RDW Coeff of Jessy (11.5-14.5) % Plt Count (130-400) K/uL MPV (9.4-12.4) fL Immature Gran % (Auto) % Neut % (Auto) % Lymph % (Auto) % [place] % (Auto) % Eos % (Auto) % Baso % (Auto) % Neut # (Auto) (1.40-6.50) K/uL Lymph # (Auto) (1.20-3.40) K/uL [place] # (Auto) (0.11-0.59) K/uL Eos # (Auto) (0.00-0.50) K/uL Baso # (Auto) (0.00-0.20) K/uL Immature Gran # (Auto) (0.01-0.20) K/uL Sodium (136-145) mmol/L Potassium (3.5-5.1) mmol/L Chloride (98-107) mmol/L Carbon Dioxide (21-32) mmol/L Anion Gap (3-11) BUN (6-23) mg/dl Creatinine (0.6-1.2) mg/dl Est Cr Clr Drug Dosing ml/min Est GFR ( Amer) ml/min Est GFR (Non-Af Amer) ml/min BUN/Creatinine Ratio (10-20) Glucose (70-99(Fasting)) mg/dl POC Glucose 181 H (70-99) mg/dl Estimat Average Glucose mg/dl Hemoglobin A1c (4.5-5.6) % Calcium (8.6-10.3) mg/dl Magnesium (1.7-2.4) mg/dl Total Bilirubin (0.2-1.0) mg/dl AST (13-39) U/L ALT (7-52) U/L Alkaline Phosphatase (34-104) U/L Total Protein (6.0-8.3) gm/dl Albumin (3.4-5.0) gm/dl Globulin (2.5-4.0) gm/dl Albumin/Globulin Ratio (0.9-2) Diagnostic Findings Imaging and microbiology studies reviewed in [employer]. Medications Administered MAR reviewed in [facility]. PG Care Time/CCT Total # of Minutes Spent Total Time Spent with Patient: Total time spent is greater than 50% in coordination of care (as documented) at patient's floor/unit and/or counseling patient: Coding Level of Care Code 81587 INT INP/OBS CARE Diagnoses Stasis dermatitis of both legs I87.2
[2023-08-07] MEDS: MOMETASONE FUROATE 0.1% OINT 15 GM TUBE EXT SCH (21:19)
[2023-08-08 06:24] LABS: Hematocrit (blood only) 30.1 % (37.0-47.0); Hemoglobin 9.8 g/dl (12.0-16.0); Mean Corpuscular Hemoglobin 28.2 pg (25.0-34.0); Mean Corpuscular Hgb Conc 32.6 g/dL (32.0-36.0); Mean Corpuscular Volume 86.5 fL (80.0-100.0); Mean Platelet Volume 9.7 fL (9.4-12.4); Platelet Count 286 K/uL (130-400); RDW Standard Deviation 44.1 fL (36.4-46.3); Red Blood Count 3.48 M/uL (4.20-5.40); White Blood Count 12.14 K/ul (4.8-10.8)
[2023-08-08 06:48] LABS: BUN Creatinine Ratio 36.7 (10-20); Calcium 8.5 mg/dl (8.6-10.3); Creatinine Clr Calc Pharmacy 43.8 ml/min; Est GFR (African American) 48.7 ml/min; Magnesium 2.3 mg/dl (1.7-2.4)
[2023-08-08] MEDS: CEFEPIME 1,000 MG in SYRINGE 0 ML IV SCH (08:49)
--- NOTE | 2023-08-08 10:04 | Pharmacy Report ---
Pharmacy Glycemic Short Note 2 - Date of Service August 08, 2023 - Glycemic Short BSG Results (Last 24 hours): 08/07/23 08/07/23 08/07/23 12:08 17:00 20:12 Glucose POC Glucose 216 H 197 H 198 H 08/08/23 08/08/23 05:27 07:54 Glucose 201 H POC Glucose 192 H OUTPATIENT ANTIDIABETIC REGIMEN: * glipizide 2.5mg PO daily * metformin 500mg PO QDB * HBA1c 7.3% (06/2023) ASSESSMENT: 08/07 * Pt received 42 units of insulin yesterday, 14 unit basal, blood sugars above goal. Remains on Dexamethasone 6mg IV Q6H, IV Ceftriaxone for UTI. * Tighten CF/CR and change parameters for Lantus so that patient receives higher dose for BSG > 180mg/dl (instead of 220mg/dl) 08/05 * Stephanie is 72 YOF admitted with angioedema and lower extremity cellulitis with a history of type 2 diabetes mellitus. Pharmacy has been consulted for glycemic management while inpatient. * BSG on admission within goal range, given 10mg IV dexamethasone for angioedema and continued every 6 hours. Will initiate basal insulin scaled based on BSG twice daily up to a weight based stress of 2 while NPO (plan to increase to a weight based stress of 3 once diet advanced). * Novolog initiated at a weight based stress of 3 PLAN FOR INPATIENT GLYCEMIC CONTROL: * Hold outpatient oral diabetes medications * Basal insulin * Lantus 0-15 units SQ BID (0 units BSG < 110, 7 units BSG 110-180, 15 units BSG > 180) * Bolus insulin * NovoLog per scale ACHS or Q6hrs while NPO * Goal Range: Low 110 mg/dL - High 140 mg/dL * Correction Factor: 15 mg/dL/unit * Nutritional / Prandial insulin per carb ratio of 1 unit per 5 grams CHO consumed
--- NOTE | 2023-08-08 10:21 | Ultrasound Report ---
ULTRASOUND BILATERAL LOWER EXTREMITY VENOUS CLINICAL HISTORY: Lower extremity edema. COMPARISON STUDY: No priors. TECHNIQUE: Real-time, grayscale, and color Doppler sonography of the deep veins of the right and left lower extremity was performed from the inguinal crease to the calf. Compression and augmentation wer e utilized. FINDINGS: There is no sonographic evidence of deep venous thrombosis identified in the right or left lower extremity. The common femoral, superficial femoral, and popliteal veins are patent and normally compressible bilaterally. The greater saphenous vein and the profunda femoris vein at the junction w ith the common femoral vein are clear in both legs. The visualized calf veins are patent bilaterally. IMPRESSION: There is no sonographic evidence of deep venous thrombosis identified in the right or lef t lower extremity. ACT 112: Negative or not required by law. Electronically signed by: Brady Saldivar M.D. 08/08/2023 10:19 AM
--- NOTE | 2023-08-08 17:41 | Hospitalist Progress Note ---
Date of Service August 08, 2023 Assessment & Plan (1) Angioedema: (2) Dermatitis: (3) Complicated UTI (urinary tract infection): (4) DM type 2 (diabetes mellitus, type 2): (5) HTN (hypertension): (6) Dyslipidemia: (7) CKD (chronic kidney disease) stage 3, GFR 30-59 ml/min: (8) Anemia: Plan Patient is a 72 yr old female with H/O HTN, HLD, T2DM, CKD-3, hx of recurrent UTI and glaucoma who presents to ED 2/2 difficulty swallowing, swallowing of upper lip and rash to legs. The rash on her leg started 4 days ago. Angioedema First episode ? Secondary to lisinopril Complement workup pending Lisinopril discontinued Continue Decadron, famotidine, Benadryl Appreciate ENT input Clinically improving Consider allergy immunology as outpatient Titrate down steroids Generalized petechial rash--likely stasis dermatitis component of lipodermatosclerosis Less likely lower extremity cellulitis Eczema on back --ECHO from 06/02 showed Preserved EF, NO diastolic dysfunction --Venous Doppler:There is no sonographic evidence of deep venous thrombosis identified in the right or left lower extremity. Normal BNP Empirically on IV cefepime Also on steroids Appreciate dermatology input Will need lower extremity venous Doppler reflux study as outpatient Continue mometasone ointment twice a day for 2 weeks Will need follow-up with dermatology on discharge Urinary tract infection Urine culture growing Citrobacter, gram-negative bacilli Blood cultures--no growth to date Empirically on Rocephin>> changed to cefepime Day #1 CKD III Mild metabolic acidosis Baseline cr 1.5-1.8 Monitor renal function Avoid nephrotoxic agents as able DM II HbA1c 7.1 hold glipizide/metformin Continue insulin while hospitalized Glycemic pharmacist consulted HTN continue amlodipine, atenolol Lisinopril discontinued Monitor BP HLD continue statin Anemia Folate deficiency continue folic acid supplementation Monitor CBC DVT Px: SQ Heparin Code Status FULL CODE Admission and Anticipated Discharge Date Admission Date: August 06, 2023 Subjective Patient is seen and examined at bedside Left swelling resolved No issues with swallowing today Rash slowly improving No new complaints Denies any chest pain, dyspnea, nausea, vomiting, abdominal pain, hematuria, dysuria Review of Systems Review of Systems: All systems reviewed & are unremarkable except as noted in Subjective Physical Exam Physical Exam: Physical Exam: Vitals signs as noted above General Appearance:Obese, no apparent distress Head: normocephalic, Atraumatic Eyes: normal inspection, EOMI Neck: supple, Trachea midline Respiratory/Chest: Normal breath sounds, CTA, No accessory muscle use Cardiovascular: S1, S2, No murmur Abdomen/GI:Soft, Non tender, Bowel sounds present Extremities/Musculoskeletal:normal inspection, 1+ B/L LE Non pitting edema, + chronic venous stasis changes Neurologic/Psych:AAOX3, grossly no focal neurological deficits Skin: normal color, warm,+ generalized petechial rash Results & Data Results & Data Vital Signs (Past 12 Hours) Vital Signs Temp Pulse Resp BP Pulse Ox O2 Del Method 08/08/23 15:45 36.9 C 53 L 18 150/74 H 96 Room Air 08/08/23 11:14 36.8 C 54 L 18 131/72 98 Room Air 08/08/23 07:26 36.5 C 53 L 18 169/77 H 98 Room Air Laboratory Results Short CBC 08/08/23 Range/Units 05:27 WBC 12.14 H (4.8-10.8) K/ul Hgb 9.8 L (12.0-16.0) g/dl Hct 30.1 L (37.0-47.0) % Plt Count 286 (130-400) K/uL BMP 08/08/23 05:27 Sodium 138 Potassium 5.0 Chloride 109 H Carbon Dioxide 21 BUN 47 H Creatinine 1.28 H Glucose 201 H Calcium 8.5 L (1) Angioedema Encounter type: initial encounter Qualified Code(s): T78.3XXA - Angioneurotic edema, initial encounter (8) Anemia Anemia type: unspecified type Qualified Code(s): D64.9 - Anemia, unspecified
[2023-08-08] MEDS: dexAMETHasone 5 MG in SYRINGE 0 ML IV SCH (21:16)
[2023-08-09 06:37] LABS: Hematocrit (blood only) 30.2 % (37.0-47.0); Hemoglobin 10.1 g/dl (12.0-16.0); Mean Corpuscular Hemoglobin 28.5 pg (25.0-34.0); Mean Corpuscular Hgb Conc 33.4 g/dL (32.0-36.0); Mean Corpuscular Volume 85.1 fL (80.0-100.0); Mean Platelet Volume 9.7 fL (9.4-12.4); Platelet Count 321 K/uL (130-400); RDW Coefficient of Variation 13.7 % (11.5-14.5); RDW Standard Deviation 42.5 fL (36.4-46.3); Red Blood Count 3.55 M/uL (4.20-5.40); White Blood Count 10.75 K/ul (4.8-10.8)
[2023-08-09 07:02] LABS: BUN Creatinine Ratio 38.5 (10-20); Calcium 8.6 mg/dl (8.6-10.3); Creatinine Clr Calc Pharmacy 41.3 ml/min; Est GFR (African American) 45.7 ml/min; Est GFR (Non-African American) 39.4 ml/min; Magnesium 2.5 mg/dl (1.7-2.4); Potassium 4.6 mmol/L (3.5-5.1)
[2023-08-09] MEDS: LANTUS PER UNIT CHARGE SC SCH (12:34)
--- NOTE | 2023-08-09 13:54 | Pharmacy Report ---
Pharmacy Glycemic Short Note 2 - Date of Service August 09, 2023 - Glycemic Short BSG Results (Last 24 hours): 08/08/23 08/08/23 08/09/23 16:58 20:40 05:27 Glucose 104 H POC Glucose 235 H 212 H 08/09/23 08/09/23 07:34 11:14 Glucose POC Glucose 109 H 194 H OUTPATIENT ANTIDIABETIC REGIMEN: * glipizide 2.5mg PO daily * metformin 500mg PO QDB * HBA1c 7.3% (06/2023) ASSESSMENT: 08/08: * Patient received total 88 units of insulin yesterday: 30 units basal + 58 units bolus. * BSGs yesterday were [phone] mg/dl. Fasting BSG today = 104 mg/dl. * Based on BSG today AM, patient had not received any basal with breakfast. Added lower dose of basal insulin (7 units) for lunch time since she received IV Dex 5 mg in the AM and expect BSGs to trend up further this evening. * IV Dexamethasone is now changed to Prednisone starting tomorrow. Basal 15 units based on stress of 2 ordered for AM tomorrow. * Novolog parameters were tightened with lunch yesterday. Continued the same today. 08/07 * Pt received 42 units of insulin yesterday, 14 unit basal, blood sugars above goal. Remains on Dexamethasone 6mg IV Q6H, IV Ceftriaxone for UTI. * Tighten CF/CR and change parameters for Lantus so that patient receives higher dose for BSG > 180mg/dl (instead of 220mg/dl) 08/05 * Stephanie is 72 YOF admitted with angioedema and lower extremity cellulitis with a history of type 2 diabetes mellitus. Pharmacy has been consulted for glycemic management while inpatient. * BSG on admission within goal range, given 10mg IV dexamethasone for angioedema and continued every 6 hours. Will initiate basal insulin scaled based on BSG twice daily up to a weight based stress of 2 while NPO (plan to increase to a weight based stress of 3 once diet advanced). * Novolog initiated at a weight based stress of 3 PLAN FOR INPATIENT GLYCEMIC CONTROL: * Hold outpatient oral diabetes medications * Basal insulin * Lantus 7 units SC today with lunch * Lantus 15 units SC QAM with Prednisone * Bolus insulin * NovoLog per scale ACHS or Q6hrs while NPO * Goal Range: Low 110 mg/dL - High 140 mg/dL * Correction Factor: 12 mg/dL/unit * Nutritional / Prandial insulin per carb ratio of 1 unit per 4 grams CHO consumed
--- NOTE | 2023-08-09 14:03 | Hospitalist Progress Note ---
Date of Service August 09, 2023 Assessment & Plan (1) Angioedema: (2) Dermatitis: (3) Complicated UTI (urinary tract infection): (4) DM type 2 (diabetes mellitus, type 2): (5) HTN (hypertension): (6) Dyslipidemia: (7) CKD (chronic kidney disease) stage 3, GFR 30-59 ml/min: (8) Anemia: Plan Patient is a 72 yr old female with H/O HTN, HLD, T2DM, CKD-3, hx of recurrent UTI and glaucoma who presents to ED 2/2 difficulty swallowing, swallowing of upper lip and rash to legs. The rash on her leg started 4 days ago. Angioedema First episode ? Secondary to lisinopril Complement workup pending Lisinopril discontinued Continue famotidine, Benadryl Appreciate ENT input Clinically improving Consider allergy immunology as outpatient Taper down steroids to oral prednisone Symptoms resolved Plan to discharge home today Generalized petechial rash--likely stasis dermatitis component of lipodermatosclerosis Less likely lower extremity cellulitis Eczema on back --ECHO from 06/02 showed Preserved EF, NO diastolic dysfunction --Venous Doppler:There is no sonographic evidence of deep venous thrombosis identified in the right or left lower extremity. Normal BNP Empirically on IV cefepime Also on steroids Appreciate dermatology input Will need lower extremity venous Doppler reflux study as outpatient Continue mometasone ointment twice a day for 2 weeks Will need follow-up with dermatology on discharge Clinically improved Urinary tract infection Urine culture growing Citrobacter, Enterobacter Blood cultures--no growth to date Empirically on Rocephin>> changed to cefepime Day #2 Transition to p.o. antibiotics on discharge CKD III Mild metabolic acidosis Baseline cr 1.5-1.8 Monitor renal function Avoid nephrotoxic agents as able DM II HbA1c 7.1 hold glipizide/metformin Continue insulin while hospitalized Glycemic pharmacist consulted HTN continue amlodipine, atenolol Lisinopril discontinued Monitor BP HLD continue statin Anemia Folate deficiency continue folic acid supplementation Monitor CBC DVT Px: SQ Heparin Code Status FULL CODE Disposition: Home Admission and Anticipated Discharge Date Admission Date: August 06, 2023 Subjective Patient is seen and examined at bedside States feeling a lot better today Rash much improved No new complaints Denies any chest pain, dyspnea, nausea, vomiting, abdominal pain, hematuria, dysuria Plan to discharge home today Review of Systems Review of Systems: All systems reviewed & are unremarkable except as noted in Subjective Physical Exam Physical Exam: Physical Exam: Vitals signs as noted above General Appearance:Obese, no apparent distress Head: normocephalic, Atraumatic Eyes: normal inspection, EOMI Neck: supple, Trachea midline Respiratory/Chest: Normal breath sounds, CTA, No accessory muscle use Cardiovascular: S1, S2, No murmur Abdomen/GI:Soft, Non tender, Bowel sounds present Extremities/Musculoskeletal:normal inspection, 1+ B/L LE Non pitting edema, + chronic venous stasis changes Neurologic/Psych:AAOX3, grossly no focal neurological deficits Skin: normal color, warm,+ generalized petechial rash Results & Data Results & Data Vital Signs (Past 12 Hours) Vital Signs Temp Pulse Pulse Resp BP BP Pulse Ox 08/09/23 11:52 36.3 C L 48 L 18 146/75 H 98 08/09/23 07:40 57 L 08/09/23 07:32 36.4 C L 46 L 18 155/77 H 98 08/09/23 04:55 36.7 C 57 L 18 130/75 130/75 95 O2 Del Method 08/09/23 11:52 Room Air 08/09/23 07:40 08/09/23 07:32 Room Air 08/09/23 04:55 Room Air Laboratory Results Short CBC 08/09/23 Range/Units 05:27 WBC 10.75 (4.8-10.8) K/ul Hgb 10.1 L (12.0-16.0) g/dl Hct 30.2 L (37.0-47.0) % Plt Count 321 (130-400) K/uL BMP 08/09/23 05:27 Sodium 139 Potassium 4.6 Chloride 110 H Carbon Dioxide 22 BUN 52 H Creatinine 1.35 H Glucose 104 H Calcium 8.6 (1) Angioedema Encounter type: initial encounter Qualified Code(s): T78.3XXA - Angioneurotic edema, initial encounter (8) Anemia Anemia type: unspecified type Qualified Code(s): D64.9 - Anemia, unspecified
--- NOTE | 2023-08-09 14:22 | Discharge Summary ---
Date of Service August 09, 2023 Admission HPI Per Admitting Provider This is a 72 yr old F who has a significant PMH of HTN, HLD, T2DM, CKD-3, hx of recurrent UTI and glaucoma who presents to ED 2/2 difficulty swallowing, swallowing of upper lip and rash to legs. The rash on her leg started 4 days ago. She had a similar episode in March that required antibiotics and her symptoms improved. She states that she has had increased swelling to her legs as well. She denies any recent change in soap, body wash, detergent, recently mowing grass, new socks or animals. She denies any new exposures. She states she recently saw nephrology who noted she had a, "kidney infection," and she was prescribed an antibiotic. She has not yet started. She denies any dysuria, hematuria, increased urg/freq. She typically does not have sx with her UTI. Her culture was positive for >100k citrobacter freundiii only resistant to cefoxitin. At the time she had similar sx in March she also had UTI. Also of note, when she woke up this morning she felt like she was having difficulty swallowing. She was unable to swallow some of her pills. She also noted that her upper lip and tongue was swollen. She was prescribed lisinopril approx 5 years ago and currently is maintained on 5 mg. She was on a higher dose years ago; however it was reduced due to being, "anemic."She takes in the the morning. Her last dose was yesterday a.m. Sister is at bedside who also helps elicit hx. She denies hx of lung disease, asthma or COPD. She denies any FH of angioedema. Her father had COPD, pacemaker; Mother had T2DM, CHF and required oxygen. She denies FH of autoimmune disease. Her outpatient records were reviewed. Of significance she did have a UTI in March. That culture grew E. coli. She also had an echocardiogram in May which revealed preserved EF of 55 to 59%, LV wall motion normal, di astolic function normal no evidence of pulm hypertension. Admission Exam Per Admitting Provider GENERAL APPEARANCE: AxOx4, generally well, not acutely ill no distress HEENT: NC, AT. MMM. EOMI--right pupil 4-5mm > left pupil 2mmin size, upper lip notable swollen, no airway obstruction on visual exam, no speech disturbance NECK: Supple without lymphadenopathy. No stiffness or restricted ROM. HEART: Normal rate and regular rhythm, normal S1/S1, no m/r/g LUNGS: CTAB, moving air well. No crackles or wheezes are heard. ABDOMEN: Soft, nontender, nondistended with good bowel sounds heard. BACK: diffuse excoriations, no visible urticaria or maculopapular rashes EXTREMITIES: Without cyanosis, clubbing or edema. NEUROLOGICAL: Grossly nonfocal. Alert and oriented, moving all 4 extremities. CN not formally tested but appear grossly intact. Skin: Warm and dry without any rash. Principal Diagnosis Angioedema Stasis dermatitis Urinary tract infection Discharge Data Allergies Allergy/AdvReac Type Severity Reaction Status Date / Time bee venom protein (honey bee) Allergy Severe SWELLING Verified 05/10/23 13:31 AT SITE, HARD TO BREATHE Sulfa (Sulfonamide Allergy Severe From a b/p Verified 05/10/23 13:31 Antibiotics) med (told never take sulfa), RASH Cipro Allergy Unknown 0 Verified 08/27/17 01:28 ciprofloxacin [Cipro] Allergy Unknown 0 Verified 05/10/23 13:31 nitrofurantoin AdvReac Vomiting Verified 05/10/23 13:31 [From Macrobid] Consultations 08/06/23 11:31 ED Decision to Admit Stat 08/06/23 12:05 Consult Dermatology Routine 08/06/23 12:16 Consult Otolaryngology (Head and Neck) Routine Procedures Performed Laboratory Results WBC 10.75 K/ul (4.8-10.8) 08/09/23 05:27 RBC 3.55 M/uL (4.20-5.40) L 08/09/23 05:27 Hgb 10.1 g/dl (12.0-16.0) L 08/09/23 05:27 Hct 30.2 % (37.0-47.0) L 08/09/23 05:27 MCV 85.1 fL (80.0-100.0) 08/09/23 05:27 MCH 28.5 pg (25.0-34.0) 08/09/23 05: MCHC 33.4 g/dL (32.0-36.0) 08/09/23 05:27 RDW Std Deviation 42.5 fL (36.4-46.3) 08/09/23 05:27 RDW Coeff of Jessy 13.7 % (11.5-14.5) 08/09/23 05:27 Plt Count 321 K/uL (130-400) 08/09/23 05:27 MPV 9.7 fL (9.4-12.4) 08/09/23 05:27 Immature Gran % (Auto) 0.6 % 08/07/23 05:32 Neut % (Auto) 79.0 % 08/07/23 05:32 Lymph % (Auto) 19.3 % 08/07/23 05:32 Ralls % (Auto) 1.0 % 08/07/23 05:32 Eos % (Auto) 0.0 % 08/07/23 05:32 Baso % (Auto) 0.1 % 08/07/23 05:32 Neut # (Auto) 5.61 K/uL (1.40-6.50) 08/07/23 05:32 Lymph # (Auto) 1.37 K/uL (1.20-3.40) 08/07/23 05:32 Ralls # (Auto) 0.07 K/uL (0.11-0.59) L 08/07/23 05:32 Eos # (Auto) 0.00 K/uL (0.00-0.50) 08/07/23 05:32 Baso # (Auto) 0.01 K/uL (0.00-0.20) 08/07/23 05:32 Immature Gran # (Auto) 0.04 K/uL (0.01-0.20) 08/07/23 05:32 PT 11.7 Seconds (9.0-12.0) 08/06/23 09:13 INR 1.1 (0.9-1.1) 08/06/23 09:13 APTT 28 Seconds (21-31) 08/06/23 09:13 PTT Ratio 1.0 08/06/23 09:13 VBG pH 7.35 (7.36-7.41) L 08/06/23 09:13 VBG pCO2 36 mmHg (38-50) L 08/06/23 09:13 VBG pO2 48 mmHg 08/06/23 09:13 VBG HCO3 20 mmol/L 08/06/23 09:13 VBG O2 Saturation 80.3 % 08/06/23 09:13 VBG Base Excess -5.1 mEq/L 08/06/23 09:13 Sodium 139 mmol/L (136-145) 08/09/23 05:27 Potassium 4.6 mmol/L (3.5-5.1) 08/09/23 05:27 Chloride 110 mmol/L (98-107) H 08/09/23 05:27 Carbon Dioxide 22 mmol/L (21-32) 08/09/23 05:27 Anion Gap 7 (3-11) 08/09/23 05:27 BUN 52 mg/dl (6-23) H 08/09/23 05:27 Creatinine 1.35 mg/dl (0.6-1.2) H 08/09/23 05:27 Est Cr Clr Drug Dosing 41.3 ml/min 08/09/23 05:27 Est GFR ( Amer) 45.7 ml/min 08/09/23 05:27 Est GFR (Non-Af Amer) 39.4 ml/min 08/09/23 05:27 BUN/Creatinine Ratio 38.5 (10-20) H 08/09/23 05:27 Glucose 104 mg/dl (70-99(Fasting)) H 08/09/23 05:27 POC Glucose 194 mg/dl (70-99) H 08/09/23 11:14 Estimat Average Glucose 157 mg/dl 08/07/23 05:32 Hemoglobin A1c 7.1 % (4.5-5.6) H 08/07/23 05:32 Lactate 0.9 mmol/L (0.4-2.0) 08/06/23 09:13 Calcium 8.6 mg/dl (8.6-10.3) 08/09/23 05:27 Magnesium 2.5 mg/dl (1.7-2.4) H 08/09/23 05:27 Iron 37 mcg/dl (35-150) 08/06/23 12:08 Transferrin 193 mg/dl (200-360) L 08/06/23 12:08 Ferritin 97.6 ng/ml (8-388) 08/06/23 12:08 Total Bilirubin 0.3 mg/dl (0.2-1.0) 08/07/23 05:32 Direct Bilirubin 0.1 mg/dl (0-0.2) 08/06/23 09:13 AST 13 U/L (13-39) 08/07/23 05:32 ALT 9 U/L (7-52) 08/07/23 05:32 Alkaline Phosphatase 65 U/L (34-104) 08/07/23 05:32 Troponin I High Sens 5.0 pg/ml (0-14) 08/06/23 09:13 B-Natriuretic Peptide 51 pg/ml (0-100) 08/06/23 12:24 Total Protein 6.7 gm/dl (6.0-8.3) 08/07/23 05:32 Albumin 3.8 gm/dl (3.4-5.0) 08/07/23 05:32 Globulin 2.9 gm/dl (2.5-4.0) 08/07/23 05:32 Albumin/Globulin Ratio 1.3 (0.9-2) 08/07/23 05:32 Vitamin B12 1315 pg/ml (180-914) H 08/06/23 12:08 Folate > 22.30 ng/ml (>5.38) 08/06/23 12:08 Procalcitonin 0.04 ng/ml (0-0.5) 08/06/23 09:13 Urine Color Yellow 08/06/23 11:26 Urine Appearance Clear (Clear) 08/06/23 11:26 Urine pH 5.5 (4.5-7.5) 08/06/23 11:26 Ur Specific Union 1.006 (1.000-1.030) 08/06/23 11:26 Urine Protein Negative (Negative) 08/06/23 11:26 Urine Glucose (UA) Negative (Negative) 08/06/23 11:26 Urine Ketones Negative (Negative) 08/06/23 11:26 Urine Blood Negative (Negative) 08/06/23 11:26 Urine Nitrite Negative (Negative) 08/06/23 11:26 Urine Bilirubin Negative (Negative) 08/06/23 11:26 Urine Urobilinogen Negative (Negative) 08/06/23 11:26 Ur Leukocyte Esterase Trace (Negative) H 08/06/23 11:26 Urine WBC (Auto) 0-5 /hpf (0-5) 08/06/23 11:26 Urine RBC (Auto) 0-2 /hpf (0-2) 08/06/23 11:26 U Hyaline Cast (Auto) 0-2 /lpf (0-2) 08/06/23 11:26 U Epithel Cells (Auto) 0-2 /hpf (0-2) 08/06/23 11:26 Urine Bacteria (Auto) 4+ (None Seen) H 08/06/23 11:26 Nasal Screen MRSA (PCR) Negative (Negative) 08/07/23 17:05 Impressions Chest X-Ray 08/06/23 09:06 XR chest 1V portable HISTORY: Sepsis COMPARISON: Chest 05/10/2023. FINDINGS: The lungs are clear. The cardiac silhouette is top normal in size. No pleural effusions. No pneumothorax. No acute fractures. IMPRESSION: No acute process. ACT 112: Negative or not required by law. Electronically signed by: Federico Medellin M.D. 08/06/2023 9:55 AM Venous Doppler Study 08/08/23 07:57 ULTRASOUND BILATERAL LOWER EXTREMITY VENOUS CLINICAL HISTORY: Lower extremity edema. COMPARISON STUDY: No priors. TECHNIQUE: Real-time, grayscale, and color Doppler sonography of the deep veins of the right and left lower extremity was performed from the inguinal crease to the calf. Compression and augmentation were utilized. FINDINGS: There is no sonographic evidence of deep venous thrombosis identified in the right or left lower extremity. The common femoral, superficial femoral, and popliteal veins are patent and normally compressible bilaterally. The greater saphenous vein and the profunda femoris vein at the junction with the common femoral vein are clear in both legs. The visualized calf veins are patent bilaterally. IMPRESSION: There is no sonographic evidence of deep venous thrombosis identified in the right or left lower extremity. ACT 112: Negative or not required by law. Electronically signed by: Brady Saldivar M.D. 08/08/2023 10:19 AM Ordered Studies 08/08/23 07:57 US venous doppler LE Routine Hospital Course (1) Angioedema: (2) Dermatitis: (3) Complicated UTI (urinary tract infection): (4) DM type 2 (diabetes mellitus, type 2): (5) HTN (hypertension): (6) Dyslipidemia: (7) CKD (chronic kidney disease) stage 3, GFR 30-59 ml/min: (8) Anemia: Plan Patient is a 72 yr old female with H/O HTN, HLD, T2DM, CKD-3, hx of recurrent UTI and glaucoma who presents to ED 2/2 difficulty swallowing, swallowing of upper lip and rash to legs. The rash on her leg started 4 days ago. Angioedema First episode ? Secondary to lisinopril Complement workup pending Lisinopril discontinued Continue famotidine, Benadryl Appreciate ENT input Clinically improving Consider allergy immunology as outpatient Taper down steroids to oral prednisone Symptoms resolved Plan to discharge home today Generalized petechial rash--likely stasis dermatitis component of lipodermatosclerosis Less likely lower extremity cellulitis Eczema on back --ECHO from 06/02 showed Preserved EF, NO diastolic dysfunction --Venous Doppler:There is no sonographic evidence of deep venous thrombosis identified in the right or left lower extremity. Normal BNP Empirically on IV cefepime Also on steroids Appreciate dermatology input Will need lower extremity venous Doppler reflux study as outpatient Continue mometasone ointment twice a day for 2 weeks Will need follow-up with dermatology on discharge Clinically improved Urinary tract infection Urine culture growing Citrobacter, Enterobacter Blood cultures--no growth to date Empirically on Rocephin>> changed to cefepime Day #2 Transition to p.o. antibiotics on discharge CKD III Mild metabolic acidosis Baseline cr 1.5-1.8 Monitor renal function Avoid nephrotoxic agents as able DM II HbA1c 7.1 hold glipizide/metformin Continue insulin while hospitalized Glycemic pharmacist consulted HTN continue amlodipine, atenolol Lisinopril discontinued Monitor BP HLD continue statin Anemia Folate deficiency continue folic acid supplementation Monitor CBC DVT Px: SQ Heparin Code Status FULL CODE Disposition: Home Total Time Total Time Spent Total Time Spent (In Minutes): 55 minutes Discharge Plan Discharge Items Patient Disposition: Home - Self-Care Reason For Visit: ANGIOEDEMA Discharge Diagnosis: Angioedema Stasis dermatitis Urinary tract infection Activity: Per Instructions section Exercise/Sports: Gradually increase as tolerated Non-emergency contact: Primary Care Provider and Specialist Call non-emergency contact if: you have any medication questions, your symptoms worsen, your pain is concerning for you and you have a fever Follow-up/Referrals: Ghislaine Hernandez DO [Primary Care Provider] - (Date & Time 08/14/2023 10:00 AM Provider Ghislaine Hernandez DO Department [facility] ) Diet: Carb Consistent or DM2 and Heart Healthy Addtl Attending Provider Instructions: Follow-up with your primary care physician on 08/14/2023 10:00 AM Follow-up with your professional driver Dr.Mathew Gatica in 3-4 weeks as advised Consider following up with Allergy/Immunology for further testing to understand the cause of your angioedema . -- Complete the antibiotic (levofloxacin) , prednisone taper course as prescribed. -- Your blood test (complement levels) are pending at the time of discharge. Follow-up with your physician for results -- Obtain venous Doppler reflux study of legs for further evaluation of stasis dermatitis. Prednisone taper course: --Start taking prednisone 40 mg daily for 2 days, then 30 mg daily for 2 days, then 20 mg daily for 2 days, 10 mg daily for 2 days and stop -- Do not take lisinopril as advised. --Continue mometasone ointment twice a day for 2 weeks as recommended by your professional driver. --Monitor your blood pressure regularly at home, and discuss with your physician for further adjustment of medications as needed. Seek immediate medical attention if your symptoms reoccur or worsen Please take all medications as instructed on discharge list below. Please call if you have any questions or problems. You can reach a [facility] hospitalist on duty at [facility] 24 hours a day by calling [phone] Pending Studies at Discharge: Yes Studies:: Complement studies Stand-Alone Forms: [facility], Smoking Cessation Medications and DC Order Prescriptions: New prednisone 10 mg tablet 10 mg PO UD Qty: 20 0RF Rx Instructions: Start taking prednisone 40 mg daily for 2 days, then 30 mg daily for 2 days, then 20 mg daily for 2 days, then 10 mg daily for 2 days and stop mometasone 0.1 % Ointment 1 applic EXT BID 14 Days Qty: 45 0RF levofloxacin 250 mg tablet 250 mg PO DAILY Qty: 5 0RF epinephrine [EpiPen 2-Maxi] 0.3 mg/0.3 mL auto-injector 0.3 mg IM UD PRN (Reason: anaphylaxis) Qty: 2 0RF famotidine 20 mg tablet 20 mg PO BID Qty: 14 0RF cetirizine 10 mg tablet 10 mg PO DAILY Qty: 7 0RF Continued atorvastatin 40 mg tablet 40 mg PO HS atenolol 25 mg tablet 25 mg PO DAILY amlodipine 10 mg tablet 10 mg PO DAILY folic acid 1 mg tablet 1 mg PO DAILY glipizide 5 mg tablet 2.5 mg PO DAILY dorzolamide 2 % drops 1 drp OPB BID Rocklatan 0.02-0.005 % drops 1 drp OPB HS Vabysmo 6 mg/0.05 mL Solution 6 mg INTRAVITREAL DIRECTED PRN (Reason: ..) aspirin [Aspir-Low] 81 mg Tablet,Delayed Release (Dr/Ec) 81 mg PO DAILY metformin 500 mg tablet extended release 24 hr 500 mg PO DAILYBD cholecalciferol (vitamin D3) [Vitamin D3] 25 mcg (1,000 unit) Tablet 25 mcg PO DAILY brimonidine-timolol 0.2-0.5 % Drops 1 drp OPHTHALMIC (EYE) BID Discontinued lisinopril 5 mg tablet 5 mg PO DAILY Discharge Orders: Discharge Order (Routine); Ordered 08/09/23 Ordered By: Inocencio Colon/Other Patient Handouts: Managing Type 2 Diabetes Admission Data Admit Date/Time: 08/06/23 11:43 Attending Provider: Inocencio Cortez Admit Provider: Sonya Garcia Primary Care Provider: Ghislaine Hernandez Other Providers: Sonya Garcia; Edna Maldonado; Esau Escobar
[2023-08-10] MEDS ORDERED: LANTUS PER UNIT CHARGE SC SCH (09:00)
[2023-08-10] MEDS ORDERED: predniSONE 20 MG TAB PO SCH (09:00)
== END 2023-08-09 15:54 | disposition home or self-care (01) | DRG 916 ==
LOC: ED 08:40 → EDINP 11:43 → SUATTDRO 11:43 → EDINP 13:35 → 4W 14:58

== ENCOUNTER 2024-08-15 14:55 | Inpatient (IN) ==
--- NOTE | 2024-08-15 15:58 | XRay Report ---
XR chest 1V not portable CLINICAL HISTORY: Chest pain, nonspecific COMPARISON STUDY: 08/06/2023 FINDINGS: Heart size and pulmonary vasculature are normal. No effusion, consolidation, or pneumothora x. IMPRESSION: No acute findings. ACT 112: Negative or not required by law. Electronically signed by: Channing Miles M.D. 08/15/2024 3:57 PM
[2024-08-15 16:10] LABS: Basophils # (auto) 0.03 K/uL (0.00-0.20); Basophils % (auto) 0.5 %; Eosinophils # (auto) 0.31 K/uL (0.00-0.50); Eosinophils % (auto) 4.9 %; Hematocrit (blood only) 34.9 % (37.0-47.0); Hemoglobin 11.8 g/dl (12.0-16.0); Immature Granulocytes # (auto) 0.03 K/uL (0.01-0.20); Immature Granulocytes % (auto) 0.5 %; Lymphocytes # (auto) 0.61 K/uL (1.20-3.40); Lymphocytes % (auto) 9.7 %; Mean Corpuscular Hemoglobin 29.2 pg (25.0-34.0); Mean Corpuscular Hgb Conc 33.8 g/dL (32.0-36.0); Mean Corpuscular Volume 86.4 fL (80.0-100.0); Mean Platelet Volume 9.4 fL (9.4-12.4); Monocytes # (auto) 0.48 K/uL (0.11-0.59); Monocytes % (auto) 7.6 %; Neutrophils # (auto) 4.86 K/uL (1.40-6.50); Neutrophils % (auto) 76.8 %; Platelet Count 193 K/uL (130-400); RDW Coefficient of Variation 13.5 % (11.5-14.5); RDW Standard Deviation 42.6 fL (36.4-46.3); Red Blood Count 4.04 M/uL (4.20-5.40); White Blood Count 6.32 K/ul (4.8-10.8)
--- NOTE | 2024-08-15 16:27 | Emergency Department Note ---
History of Present Illness General Chief complaint: Infection Stated complaint: KIDNEY INFECTION, HEART CHECK/MONITOR, BRADYCARDIA Time Seen by Provider: 08/15/24 16:06 History of Present Illness Maximum Pain Intensity: 5 This is a 73-year-old that presents to the emergency department via private vehicle with complaints of "low back pain, chills, fever, kidney infection". The patient notes history of pyelonephritis requiring hospitalization about a year ago. She notes that she feels similar today. She states that as of recent she has been experiencing some low back pain and then last evening noted chills and today woke up and was diaphoretic, had a headache and felt flushed/warm as if she had a fever. The patient also notes some mild chest discomfort and some eructation. No abdominal pain. She notes the back pain is favoring the left side. She does note history of issue with her ureter requiring urologic procedure in the past. She notes history of diabetes. In addition to the symptoms above she also notes some mild sinus congestion but no cough. Home Medications Medication Instructions Recorded Confirmed Type amlodipine 10 mg tablet 10 mg PO DAILY 05/10/23 08/15/24 History aspirin 81 mg tablet,delayed 81 mg PO DAILY 05/10/23 08/15/24 History release atenolol 25 mg tablet 12.5 mg PO DAILY 05/10/23 08/15/24 History atorvastatin 40 mg tablet 40 mg PO HS 05/10/23 08/15/24 History brimonidine 0.2 %-timolol 0.5 % 1 drp ophthalmic (eye) UD 05/10/23 08/15/24 History eye drops cholecalciferol (vitamin D3) 25 25 mcg PO DAILY 05/10/23 08/15/24 History mcg (1,000 unit) tablet (Vitamin D3) dorzolamide 2 % eye drops 1 drp OPB UD 05/10/23 08/15/24 History faricimab-svoa 6 mg/0.05 mL 6 mg intravitreal UD PRN .. 05/10/23 08/15/24 History intravitreal solution (Vabysmo) folic acid 1 mg tablet 1 mg PO DAILY 05/10/23 08/15/24 History glipizide 5 mg tablet 2.5 mg PO DAILY 05/10/23 08/15/24 History metformin 500 mg tablet,extended 500 mg PO DAILYBD 05/10/23 08/15/24 History release 24 hr netarsudil 0.02 %-latanoprost 1 drp OPB UD 05/10/23 08/15/24 History 0.005 % eye drops (Rocklatan) cetirizine 10 mg tablet 10 mg PO DAILY #7 tabs 08/09/23 08/15/24 Rx epinephrine 0.3 mg/0.3 mL 0.3 mg (0.3 mL) IM UD PRN 08/09/23 08/15/24 Rx injection, auto-injector (EpiPen anaphylaxis #2 ea 2-Maxi) famotidine 20 mg tablet 20 mg PO BID #14 tabs 08/09/23 08/15/24 Rx dorzolamide 22.3 mg-timolol 6.8 1 drp ophthalmic (eye) BID 08/15/24 08/15/24 History mg/mL eye drops hydralazine 50 mg tablet 50 mg PO QID 08/15/24 08/15/24 History Allergies Allergy/AdvReac Type Severity Reaction Status Date / Time bee venom protein (honey bee) Allergy Severe SWELLING Verified 05/10/23 13:31 AT SITE, HARD TO BREATHE Sulfa (Sulfonamide Allergy Severe From a b/p Verified 05/10/23 13:31 Antibiotics) med (told never take sulfa), RASH Cipro Allergy Unknown 0 Verified 08/27/17 01:28 ciprofloxacin [Cipro] Allergy Unknown 0 Verified 05/10/23 13:31 nitrofurantoin AdvReac Vomiting Verified 05/10/23 13:31 [From Macrobid] Past Med/Surg History Problem List (Updated 08/15/24 @ 22:12 by Lul Campo PA-C) Bradycardia Stasis dermatitis of both legs (Acute) CKD (chronic kidney disease) stage 3, GFR 30-59 ml/min Dermatitis Anemia (Acute) Cellulitis (Acute) Angioedema (Acute) Pyelonephritis Hydronephrosis Complicated UTI (urinary tract infection) (Acute) History of hysterectomy (Chronic) History of cataract surgery (Chronic) HTN (hypertension) (Chronic) Dyslipidemia (Chronic) DM type 2 (diabetes mellitus, type 2) (Chronic) Family History Mother Diabetes CHF (congestive heart failure) Father Hypertension COPD (chronic obstructive pulmonary disease) Social History Smoking Status: Never smoker Hx Alcohol Use: Yes Alcohol type: wine Hx Substance Use: No Preferred Language: Icelandic Communication Ability: Effective 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 Beliefs That Will Affect Care: None Current Living Situation: Alone Feels Safe at Home: Yes Assistive Devices: None Review of Systems A total of 10 systems reviewed and were otherwise negative Physical Exam Vital Signs Vital Signs - 24 hr 08/15/24 14:58 08/15/24 16:44 08/15/24 16:44 Temperature 37.8 C H 37.6 C Temperature Source Temporal Artery Scan Oral Pulse Rate 64 Pulse Rate [Apical] 59 L Pulse Rhythm Regular Pulse Strength Normal Respiratory Rate 18 15 Respiratory Effort / Characteristics Non-Labored Non-Labored Spontaneous Respiratory Depth Normal Normal Respiratory Pattern Regular Regular Blood Pressure 186/71 H Blood Pressure [Right Arm] 173/65 H Blood Pressure Mean 109 Blood Pressure Mean [Right Arm] 101 Blood Pressure Position Sitting Blood Pressure Position [Right Arm] Sitting Pulse Oximetry 97 98 97 Oxygen Delivery Method Room Air Room Air Room Air Sepsis Recent Fever Within 48 Hours No Sepsis New/Unexplained Change in Mental Status N/A Sepsis Action Taken by Nursing No Action Required 08/15/24 16:44 08/15/24 16:53 08/15/24 17:09 Temperature Temperature Source Pulse Rate 59 L 59 L Pulse Rate [Apical] Pulse Rhythm Pulse Strength Respiratory Rate 14 Respiratory Effort / Characteristics Respiratory Depth Respiratory Pattern Blood Pressure Blood Pressure [Right Arm] 164/74 H Blood Pressure Mean Blood Pressure Mean [Right Arm] 104 Blood Pressure Position Blood Pressure Position [Right Arm] Pulse Oximetry 97 Oxygen Delivery Method Room Air Sepsis Recent Fever Within 48 Hours Sepsis New/Unexplained Change in Mental Status Sepsis Action Taken by Nursing VITAL SIGNS - Vital signs and nursing notes were reviewed. Hypertensive, borderline febrile 37.8 C. GENERAL -73-year-old female appearing her stated age who is in no acute distress. Communicates well with provider and answers questions appropriately. SKIN - Without rashes. No meningeal or petechial rash HEAD - NC/AT. EYES - PERRL with EOMI bilaterally. Sclera anicteric. EARS - No deformities of external structures noted on gross examination bilaterally. NOSE - Midline and without cyanosis. No epistaxis or purulent drainage noted. Septum midline without deviation or septal hematoma noted. MOUTH/OROPHARYNX - Without perioral cyanosis. Buccal mucosa pink and moist and without leukoplakia. Tongue midline with equal elevation of palate bilaterally. No tonsillar hypertrophy, erythema, or exudates noted. Good dentition noted. NECK - Neck with FROM. No nuchal rigidity. LUNGS - CTA CARDIAC - RRR ABDOMEN - Abdominal contour normal without pulsations or visible masses. BS normoactive all four quadrants. No tenderness, palpable masses, hepatosplenomegaly, or ascites noted. EXTREMITIES - No clubbing or peripheral cyanosis. +5/5 strength noted in UE/LE bilaterally. NEUROLOGIC - Cranial nerves II through XII grossly intact. PSYCH -alert, oriented and pleasant on exam Course Administered Medications Atorvastatin Calcium (Atorvastatin 40 Mg Tab) 40 mg PO HS SUZANNE Stop: 09/14/24 20:59 Last Admin: 08/15/24 21:45 Dose: 40 mg Documented By: ANDREW Dorzolamide/Timolol (Dorzolamide/Timolol 22.3/6.8mg/Ml 10 Ml Btl) 1 drops OP BID SUZANNE Stop: 09/14/24 20:59 Last Admin: 08/15/24 21:45 Dose: 1 drops Documented By: ANDREW Famotidine (Famotidine 20 Mg Tab) 20 mg PO BID SUZANNE Stop: 09/14/24 20:59 Last Admin: 08/15/24 21:45 Dose: 20 mg Documented By: ANDREW Heparin Sodium (Porcine) (Heparin Sod 5,000 Unit/0.5 Ml Vial) 5,000 units SQ Q12 SUZANNE Stop: 09/14/24 21:14 Last Admin: 08/15/24 21:45 Dose: 5,000 units Documented By: ANDREW Hydralazine HCl (Hydralazine Tab 50 Mg Tab) 50 mg PO QID SUZANNE Stop: 09/14/24 20:59 Last Admin: 08/15/24 21:45 Dose: 50 mg Documented By: ANDREW Insulin Aspart (Insulin Aspart Per Unit Charge) 0 units SC ACHS SUZANNE Stop: 09/14/24 21:14 Last Admin: 08/15/24 21:13 Dose: Not Given Documented By: ANDREW Discontinued Medications Acetaminophen (Acetaminophen 325 Mg Tab) 650 mg PO NOW STA Stop: 08/15/24 18:45 Last Admin: 08/15/24 18:48 Dose: 650 mg Documented By: JIA Cefepime HCl (Maxipime 2000mg) 2,000 mg in 20 mls @ 5 mls/min IV NOW STA; Protocol Stop: 08/15/24 16:23 Last Admin: 08/15/24 17:10 Dose: 5 mls/min Documented By: JIA Medical Decision Making Laboratory Data 08/15/24 15:45 08/15/24 15:45 Lab Results 08/15/24 08/15/24 Range/Units 15:45 16:28 WBC 6.32 (4.8-10.8) K/ul RBC 4.04 L (4.20-5.40) M/uL Hgb 11.8 L (12.0-16.0) g/dl Hct 34.9 L (37.0-47.0) % MCV 86.4 (80.0-100.0) fL MCH 29.2 (25.0-34.0) pg MCHC 33.8 (32.0-36.0) g/dL RDW Std Deviation 42.6 (36.4-46.3) fL RDW Coeff of Jessy 13.5 (11.5-14.5) % Plt Count 193 (130-400) K/uL MPV 9.4 (9.4-12.4) fL Immature Gran % (Auto) 0.5 % Neut % (Auto) 76.8 % Lymph % (Auto) 9.7 % [place] % (Auto) 7.6 % Eos % (Auto) 4.9 % Baso % (Auto) 0.5 % Neut # (Auto) 4.86 (1.40-6.50) K/uL Lymph # (Auto) 0.61 L (1.20-3.40) K/uL [place] # (Auto) 0.48 (0.11-0.59) K/uL Eos # (Auto) 0.31 (0.00-0.50) K/uL Baso # (Auto) 0.03 (0.00-0.20) K/uL Immature Gran # (Auto) 0.03 (0.01-0.20) K/uL PT 11.9 (9.0-12.0) Seconds INR 1.1 (0.9-1.1) APTT 28 (21-31) Seconds PTT Ratio 1.0 Sodium 137 (136-145) mmol/L Potassium 4.1 (3.5-5.1) mmol/L Chloride 104 (98-107) mmol/L Carbon Dioxide 27 (21-32) mmol/L Anion Gap 6 (3-11) BUN 28 H (6-23) mg/dl Creatinine 1.26 H (0.6-1.2) mg/dl Est Cr Clr Drug Dosing 39.8 ml/min eGFR 45.36 BUN/Creatinine Ratio 22.2 H (10-20) Glucose 110 H (70-99(Fasting)) mg/dl Lactate 1.1 (0.4-2.0) mmol/L Calcium 8.9 (8.6-10.3) mg/dl Total Bilirubin 0.5 (0.2-1.0) mg/dl AST 28 (13-39) U/L ALT 28 (7-52) U/L Alkaline Phosphatase 86 (34-104) U/L Troponin I High Sens 9.7 (0-14) pg/ml Total Protein 7.2 (6.0-8.3) gm/dl Albumin 4.1 (3.4-5.0) gm/dl Globulin 3.1 (2.5-4.0) gm/dl Albumin/Globulin Ratio 1.3 (0.9-2) Procalcitonin 0.73 H (0-0.5) ng/ml Urine Color Yellow Urine Appearance Cloudy A (Clear) Urine pH 6.0 (4.5-7.5) Ur Specific [place] 1.017 (1.000-1.030) Urine Protein 1+ H (Negative) Urine Glucose (UA) Negative (Negative) Urine Ketones Trace H (Negative) Urine Blood Negative (Negative) Urine Nitrite Positive A (Negative) Urine Bilirubin Negative (Negative) Urine Urobilinogen Negative (Negative) Ur Leukocyte Esterase 2+ H (Negative) Urine WBC (Auto) >50 H (0-5) /hpf Urine RBC (Auto) 11-20 H (0-2) /hpf U Hyaline Cast (Auto) 0-2 (0-2) /lpf U Epithel Cells (Auto) 11-20 H (0-2) /hpf Urine Bacteria (Auto) 4+ H (None Seen) SARS-CoV-2 (PCR) NEGATIVE (Negative) Influenza Type A (PCR) Negative (Neg) Influenza Type B (PCR) Negative (Neg) RSV (RT-PCR) Negative (Neg) Imaging Data Radiologist's Impression: Chest X-Ray 08/15/24 15:05 XR chest 1V not portable CLINICAL HISTORY: Chest pain, nonspecific COMPARISON STUDY: 08/06/2023 FINDINGS: Heart size and pulmonary vasculature are normal. No effusion, consolidation, or pneumothorax. IMPRESSION: No acute findings. ACT 112: Negative or not required by law. Electronically signed by: Channing Miles M.D. 08/15/2024 3:57 PM Abdomen/Pelvis CT 08/15/24 16:17 Clinical History: Fever and chills. Back pain Technique: Axial computed tomography images were obtained of the abdomen and pelvis without intravenous contrast. Comparison is made to the prior CT dated 05/10/2023 Findings: The liver is overall of normal size, attenuation, and contour with no sign of cirrhosis or significant fatty infiltration. No definite liver mass lesion is seen on this noncontrast study. There are multiple small layering gallstones. There is no definite sign of acute cholecystitis. No bile duct dilatation is noted. The spleen is of normal size. No focal splenic lesion is evident. The pancreas appears normal with no sign of acute or chronic pancreatitis and no mass lesion noted. The pancreatic duct is of normal caliber. The adrenal glands appear unremarkable. No renal or proximal ureteral calculi are seen. There is no hydronephrosis or perinephric stranding. No definite renal mass lesion is identified. The aorta is of normal caliber. There are small subcentimeter retroperitoneal para-aortic lymph nodes. No overt abdominal adenopathy is seen. There is a small umbilical hernia containing only fat. There is a small hiatal hernia. There is no sign of small bowel obstruction. There is sigmoid diverticulosis without evidence of diverticulitis. No free intraperitoneal fluid or air is identified. No distal ureteral or bladder calculi are seen. The bladder is decompressed. The iliac arteries are of normal caliber. No pelvic adenopathy is noted. The uterus has been removed The lungs bases appear clear. Lumbar scoliosis and degenerative disc disease is seen. No fracture is identified. No focal osseous lesion is seen Impression: 1. Cholelithiasis without evidence of acute cholecystitis 2. Small hiatal hernia 3. Diverticulosis without evidence of diverticulitis ACT 112: Positive. There are findings on this exam that require communication between the performing entity and the patient following Patient Test Result Information Act ([place] ACT 112) guidelines. Electronically signed by Vance Madden 08-15-2024 5:56 PM MDM Narrative Patient was seen and evaluated as above in room C11b. Review was performed of triage nursing notes and vital signs. I did review pertinent previous visits and patient history. After obtaining a thorough history and physical examination the above work up was performed. Patient presents to us today for evaluation of low back pain with associated chills, feeling unwell, diaphoresis today. She also has some chest discomfort. Patient notes very similar symptoms about a year ago when she had pyelonephritis. The patient notes that she normally does not experience dysuria or urinary symptoms when she experiences UTI/pyelonephritis. She notes that normally it is the low back pain with the associated chills and feeling unwell. Options of care were discussed with the patient. On my assessment she is clinically well-appearing and nontoxic. She is borderline febrile 37.8. I reviewed previous urine cultures. There was antibiotic resistance noted to some of the bacteria previously and at this time we will proceed with IV cefepime based on previous urine culture. Patient will be providing urine sample here momentarily prior to the administration of the antibiotics and we will also obtain blood cultures. Patient did have testing as obtained in triage and already had an EKG which I did review from interpretation revealing normal sinus rhythm at a rate of 60 bpm. QTc 386. QRS 78. No ST elevation. She also had a chest x-ray which I reviewed and there was no acute process. We will proceed with a CT scan of the abdomen/pelvis as well to further assess. No obstructing ureteral process or evidence of emergent urologic issue by CT. Labs reveal no leukocytosis. There is anemia with hemoglobin of 11.8. Coags normal. There is evidence of CKD creatinine 1.26 with BUN at 28. Lactate normal but procalcitonin is elevated. Urinalysis concerning for UTI. Respiratory panel negative. With the patient having systemic symptoms of a UTI and with her history, I do believe that IV antibiotics and inpatient management is warranted. Case discussed with the hospitalist service. Please refer to further documentation regarding her stay. GCS: 15 In the evaluation and treatment of this patient the following differential diagnoses were entertained: UTI, pyelonephritis, dissection, ND, PE, kidney stone, bowel obstruction, diverticulitis, among others Impression & Plan Complicated UTI (urinary tract infection) Discharge Plan Visit Data Chief Complaint: Infection Stated Complaint: KIDNEY INFECTION, HEART CHECK/MONITOR, BRADYCARDIA ED Provider: Brian Pittman ED Midlevel Provider: Lul Campo Discharge Problem: Complicated UTI (urinary tract infection) Patient Disposition: Admitted As Inpatient Condition: Good Discharge Instructions Interventions: ED Discharge Assessment Last Done: 08/15/24 20:48
[2024-08-15 16:36] LABS: INR 1.1 (0.9-1.1); Partial Thromboplastin Time 28 Seconds (21-31); Prothrombin Time 11.9 Seconds (9.0-12.0)
[2024-08-15 16:37] LABS: Albumin Globulin Ratio 1.3 (0.9-2); Albumin Level 4.1 gm/dl (3.4-5.0); BUN Creatinine Ratio 22.2 (10-20); Bilirubin,Total 0.5 mg/dl (0.2-1.0); Calcium 8.9 mg/dl (8.6-10.3); Creatinine Clr Calc Pharmacy 39.8 ml/min; Globulin 3.1 gm/dl (2.5-4.0); Potassium 4.1 mmol/L (3.5-5.1); Total Protein 7.2 gm/dl (6.0-8.3)
[2024-08-15 16:43] LABS: Troponin I High Sensitivity 9.7 pg/ml (0-14)
[2024-08-15 16:46] LABS: Appearance Urine Cloudy (Clear); Bacteria Urine Automated 4+ (None Seen); Bilirubin Urine Negative (Negative); Blood Urine Negative (Negative); Cast Urine Automated 0-2 /lpf (0-2); Color Urine Yellow; Glucose Urine UA Negative (Negative); Ketones Urine Trace (Negative); Leukocyte Esterase Urine 2+ (Negative); Nitrite Urine Positive (Negative); Protein Urine 1+ (Negative); Specific Gravity Urine 1.017 (1.000-1.030); Urobilinogen Urine Negative (Negative); WBC Urine Automated >50 /hpf (0-5)
--- NOTE | 2024-08-15 16:55 | Emergency Department Note ---
ED Visit Note I was consulted by the Advanced Practice Provider. I personally made or approved the management plan for the patient. I performed a substantive portion of the visit. This includes the aspects of: MDM. .
[2024-08-15] MEDS: CEFEPIME 2000MG 2,000 MG/20 ML SYR IV STA (17:10)
[2024-08-15 17:15] LABS: Influenza A virus by PCR Negative (Neg); Influenza B virus by PCR Negative (Neg); RSV by PCR Negative (Neg); SARS CoV2 RNA(COVID-19) Ceph NEGATIVE (Negative)
--- NOTE | 2024-08-15 17:57 | CT Scan Report ---
Clinical History: Fever and chills. Back pain Technique: Axial computed tomography images were obtained of the abdomen and pelvis without intravenous contrast. Comparison is made to the prior CT dated 05/10/2023 Findings: The liver is overall of normal size, attenuation, and contour with no sign of cirrhosis or significant fatty infiltration. No definite liver mass lesion is seen on this noncontrast study. There are multiple small layering gallstones. There is no definite sign of acute cholecystitis. No bile duct dilatation is noted. The spleen is of normal size. No focal splenic lesion is evident. The pancreas appears normal with no sign of acute or chronic pancreatitis and no mass lesion noted. The pancreatic duct is of normal caliber. The adrenal glands appear unremarkable. No renal or proximal ureteral calculi are seen. There is no hydronephrosis or perinephric stranding. No definite renal mass lesion is identified. The aorta is of normal caliber. There are small subcentimeter retroperitoneal para-aortic lymph nodes. No overt abdominal adenopathy is seen. There is a small umbilical hernia containing only fat. There is a small hiatal hernia. There is no sign of small bowel obstruction. There is sigmoid diverticulosis without evidence of diverticulitis. No free intraperitoneal fluid or air is identified. No distal ureteral or bladder calculi are seen. The bladder is decompressed. The iliac arteries are of normal caliber. No pelvic adenopathy is noted. The uterus has been removed The lungs bases appear clear. Lumbar scoliosis and degenerative disc disease is seen. No fracture is identified. No focal osseous lesion is seen Impression: 1. Cholelithiasis without evidence of acute cholecystitis 2. Small hiatal hernia 3. Diverticulosis without evidence of diverticulitis ACT 112: Positive. There are findings on this exam that require communication between the performing entity and the patient following Patient Test Result Information Act ([place] ACT 112) guidelines. Electronically signed by Vance Madden 08-15-2024 5:56 PM
--- NOTE | 2024-08-15 18:18 | History & Physical Report ---
Date of Service August 15, 2024 Assessment & Plan (1) Complicated UTI (urinary tract infection): Plan: 73 year old female with past medical history of DM Type II- non-insulin dependent, CKD Stage 3, hypertension, presents with low back pain, chills, fever, diaphoresis and headache. 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 Last pyelonephritis infection was one year ago, treated with cefepime with positive results. Complicated UTI Possible early pyelonephritis * Admit to Med Surg Tele * Cefepime initiated in the emergency department- continue Cefepime 1gm Q12H dosing with renal adjustment; Creat clearance 39.8ml/min today * Dose adjust for change in Cr clearance * Trend CBC/BMP with AM labs * Check Mag/Phos with AM labs * Consider IV fluids if clinically dry Bradycardia/ Hypertension: * BP elevated on admission 160's/70's; Goal 130/80 * Continue home regimen amlodipine, atenolol, hydralazine * Telemetry monitoring * History of trivial tricuspid regurgitation 1 year ago- will re-eval valve functioning- Routine Echo ordered Diabetes Mellitus Type II: * Insulin sliding scale for blood sugar management- Goal 110-140, Correction Factor 30, carb coverage 10 * Accucheck ACHS * Adjust insulin dosing as needed (2) CKD (chronic kidney disease) stage 3, GFR 30-59 ml/min: (3) Bradycardia: (4) HTN (hypertension): (5) DM type 2 (diabetes mellitus, type 2): Plan DVT Ppx: Heparin Code status: Full PCP: Dr. Hernandez Dispo: Admit Med Surg Tele Patient seen in collaboration with Dr. Fleming. Please see addendum.I spent a total of 75 minutes coordinating, documenting and providing care for this patient excluding time spent in the performance of separately billed services or time spent by another provider/QHP. History of Present Illness Primary Care Provider: Ghislaine Hernandez, 73 year old female with past medical history of DM Type II- non-insulin dependent, CKD Stage 3, hypertension, presents with low back pain, chills, fever, diaphoresis and headache. 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 Last pyelonephritis infection was one year ago, treated with cefepime with positive results. She denied dizziness, chest pain, palpitations, falls, N/V/D, dysuria, joint pain or swelling, skin rashes, cold symptoms, bleeding to the gums or urine, cognitive changes. In the emergency department, she was hemodynamically stable with no evidence of leukocytosis. Lactate 1.1, Procalcitonin 0.73. Renal functioning ok with Creatinine 1.26 (baseline per external chart review 1.2-1.5). Urine analysis showing protein, ketones, nitrites, leukocytes, 4+ bacteria. Multiple drug allergies- Cefepime initiated. Last pyelo infection from 07/2023 positive enterobacter cloacae and citrobacter freundii. Additional workup included a chest Xray showing no acute findings. Abdominal and pelvic CT showing no renal or proximal ureteral calculi are seen; no hydronephrosis or perinephric stranding; no definite renal mass lesion is identified. She reported some mild epigastric pain in the ED with EKG showing NSR with vent rate 60, QTc 386. Troponin negative. Per external chart review, the patient was seen on 07/29 at Nephrology and had concerns with a developing UTI. Urine test was contaminated with skin cells, no treatment at time of appointment but was recommended to f/u with PCP if ongoing issues. At the same appointment, the patient had asymptomatic bradycardia with heart rate in the 40's. Atenolol dosing was thought to be contributing and consequently lowered. Hydralazine QID dosing started for BP management. Outpatient echocardiogram was ordered; previous echocardiogram on 05/2023 showing trivial tricuspid regurgitation, LV ejection fraction 55-59%, LV wall motion normal, LV diastolic function normal, no pulmonary hypertension, no pericardial effusion. History was obtained primarily from the patient, external chart review, and previous hospital records in [facility]. Allergies Allergy/AdvReac Type Severity Reaction Status Date / Time bee venom protein (honey bee) Allergy Severe SWELLING Verified 05/10/23 13:31 AT SITE, HARD TO BREATHE Sulfa (Sulfonamide Allergy Severe From a b/p Verified 05/10/23 13:31 Antibiotics) med (told never take sulfa), RASH Cipro Allergy Unknown 0 Verified 08/27/17 01:28 ciprofloxacin [Cipro] Allergy Unknown 0 Verified 05/10/23 13:31 nitrofurantoin AdvReac Vomiting Verified 05/10/23 13:31 [From Macrobid] Home Medications Medication Instructions Recorded Confirmed Type amlodipine 10 mg tablet 10 mg PO DAILY 05/10/23 08/15/24 History aspirin 81 mg tablet,delayed 81 mg PO DAILY 05/10/23 08/15/24 History release atenolol 25 mg tablet 12.5 mg PO DAILY 05/10/23 08/15/24 History atorvastatin 40 mg tablet 40 mg PO HS 05/10/23 08/15/24 History brimonidine 0.2 %-timolol 0.5 % 1 drp ophthalmic (eye) UD 05/10/23 08/15/24 History eye drops cholecalciferol (vitamin D3) 25 25 mcg PO DAILY 05/10/23 08/15/24 History mcg (1,000 unit) tablet (Vitamin D3) dorzolamide 2 % eye drops 1 drp OPB UD 05/10/23 08/15/24 History faricimab-svoa 6 mg/0.05 mL 6 mg intravitreal UD PRN .. 05/10/23 08/15/24 History intravitreal solution (Vabysmo) folic acid 1 mg tablet 1 mg PO DAILY 05/10/23 08/15/24 History glipizide 5 mg tablet 2.5 mg PO DAILY 05/10/23 08/15/24 History metformin 500 mg tablet,extended 500 mg PO DAILYBD 05/10/23 08/15/24 History release 24 hr netarsudil 0.02 %-latanoprost 1 drp OPB UD 05/10/23 08/15/24 History 0.005 % eye drops (Rocklatan) cetirizine 10 mg tablet 10 mg PO DAILY #7 tabs 08/09/23 08/15/24 Rx epinephrine 0.3 mg/0.3 mL 0.3 mg (0.3 mL) IM UD PRN 08/09/23 08/15/24 Rx injection, auto-injector (EpiPen anaphylaxis #2 ea 2-Maxi) famotidine 20 mg tablet 20 mg PO BID #14 tabs 08/09/23 08/15/24 Rx dorzolamide 22.3 mg-timolol 6.8 1 drp ophthalmic (eye) BID 08/15/24 08/15/24 History mg/mL eye drops hydralazine 50 mg tablet 50 mg PO QID 08/15/24 08/15/24 History Past Med/Surg History Problem List (Updated 08/15/24 @ 19:36 by KAILASH Worrell) Bradycardia Stasis dermatitis of both legs (Acute) CKD (chronic kidney disease) stage 3, GFR 30-59 ml/min Dermatitis Anemia (Acute) Cellulitis (Acute) Angioedema (Acute) Pyelonephritis Hydronephrosis Complicated UTI (urinary tract infection) History of hysterectomy (Chronic) History of cataract surgery (Chronic) HTN (hypertension) (Chronic) Dyslipidemia (Chronic) DM type 2 (diabetes mellitus, type 2) (Chronic) Family History Mother Diabetes CHF (congestive heart failure) Father Hypertension COPD (chronic obstructive pulmonary disease) Social History Smoking Status: Never smoker Hx Alcohol Use: Yes Alcohol type: wine Hx Substance Use: No Preferred Language: Thai Communication Ability: Effective Rn Float Required: No Beliefs That Will Affect Care: None Current Living Situation: Alone Feels Safe at Home: Yes Assistive Devices: None Review of Systems Review of Systems: All systems reviewed & are unremarkable except as noted in HPI & below Physical Exam Physical Exam: VITALS: Reviewed. WEIGHT/BMI reviewed. GEN: Healthy appearing, well-developed, NAD. PSYCH: Good Judgment. AOx3. Normal memory, mood, and affect. HEENT -Head: NC/AT; -Eyes: PERRL, EOMI. No discharge or redn ess; -Ears: External ears are normal. Normal TMs. -Nose: Normal nares. -Mouth and throat: MMM. Normal gums, muc matthew, palate,. Good dentition. NECK: Supple, with no masses. CV: Heart rate 60's, rhythm regular, +systolic murmur, no carotid bruits, no swelling, peripheral pulses strong. LUNGS: CTAB, no w/r/c. ABD: Soft, NT/ND, NBS, no masses or organomegaly. : +CVA tenderness to left side SKIN: Warm, well perfused. No skin rashes or abnormal lesions. MSK: No apparent deformities. EXT: No clubbing, cyanosis, or edema. NEURO: Ambulating with no limitations. + tremor bilaterally, Normal muscle strength and tone. No focal deficits. Results & Data Results & Data Vital Signs (Past 12 Hours) Vital Signs Temp Pulse Pulse Resp BP BP Pulse Ox 08/15/24 17:09 164/74 H 08/15/24 16:53 59 L 08/15/24 16:44 59 L 14 97 08/15/24 16:44 97 08/15/24 16:44 37.6 C 59 L 15 173/65 H 98 08/15/24 14:58 37.8 C H 64 18 186/71 H 97 O2 Del Method 08/15/24 17:09 08/15/24 16:53 08/15/24 16:44 Room Air 08/15/24 16:44 Room Air 08/15/24 16:44 Room Air 08/15/24 14:58 Room Air Laboratory Results Short CBC 08/15/24 Range/Units 15:45 WBC 6.32 (4.8-10.8) K/ul Hgb 11.8 L (12.0-16.0) g/dl Hct 34.9 L (37.0-47.0) % Plt Count 193 (130-400) K/uL BMP 08/15/24 15:45 Sodium 137 Potassium 4.1 Chloride 104 Carbon Dioxide 27 BUN 28 H Creatinine 1.26 H Glucose 110 H Calcium 8.9 Liver Function 08/15/24 Range/Units 15:45 Total Bilirubin 0.5 (0.2-1.0) mg/dl AST 28 (13-39) U/L ALT 28 (7-52) U/L Alkaline Phosphatase 86 (34-104) U/L Albumin 4.1 (3.4-5.0) gm/dl Urine 08/15/24 Range/Units 16:28 Urine Color Yellow Urine Appearance Cloudy A (Clear) Urine pH 6.0 (4.5-7.5) Ur Specific [place] 1.017 (1.000-1.030) Urine Protein 1+ H (Negative) Urine Glucose (UA) Negative (Negative) Diagnostic Findings Chest X-Ray 08/15/24 15:05 XR chest 1V not portable CLINICAL HISTORY: Chest pain, nonspecific COMPARISON STUDY: 08/06/2023 FINDINGS: Heart size and pulmonary vasculature are normal. No effusion, consolidation, or pneumothorax. IMPRESSION: No acute findings. ACT 112: Negative or not required by law. Electronically signed by: Channing Miles M.D. 08/15/2024 3:57 PM Abdomen/Pelvis CT 08/15/24 16:17 Clinical History: Fever and chills. Back pain Technique: Axial computed tomography images were obtained of the abdomen and pelvis without intravenous contrast. Comparison is made to the prior CT dated 05/10/2023 Findings: The liver is overall of normal size, attenuation, and contour with no sign of cirrhosis or significant fatty infiltration. No definite liver mass lesion is seen on this noncontrast study. There are multiple small layering gallstones. There is no definite sign of acute cholecystitis. No bile duct dilatation is noted. The spleen is of normal size. No focal splenic lesion is evident. The pancreas appears normal with no sign of acute or chronic pancreatitis and no mass lesion noted. The pancreatic duct is of normal caliber. The adrenal glands appear unremarkable. No renal or proximal ureteral calculi are seen. There is no hydronephrosis or perinephric stranding. No definite renal mass lesion is identified. The aorta is of normal caliber. There are small subcentimeter retroperitoneal para-aortic lymph nodes. No overt abdominal adenopathy is seen. There is a small umbilical hernia containing only fat. There is a small hiatal hernia. There is no sign of small bowel obstruction. There is sigmoid diverticulosis without evidence of diverticulitis. No free intraperitoneal fluid or air is identified. No distal ureteral or bladder calculi are seen. The bladder is decompressed. The iliac arteries are of normal caliber. No pelvic adenopathy is noted. The uterus has been removed The lungs bases appear clear. Lumbar scoliosis and degenerative disc disease is seen. No fracture is identified. No focal osseous lesion is seen Impression: 1. Cholelithiasis without evidence of acute cholecystitis 2. Small hiatal hernia 3. Diverticulosis without evidence of diverticulitis ACT 112: Positive. There are findings on this exam that require communication between the performing entity and the patient following Patient Test Result Information Act ([place] ACT 112) guidelines. Electronically signed by Vance Madden 08-15-2024 5:56 PM Supervising Physician Co-Signing Physician Notes Patient seen and examined Reports low back pain, chills, urinary frequency and diaphoresis UA suggestive of UTI CT A/P did not show renal/ureteric calculi/hydronephrosis/perinephric stranding Considering hx of recurrent pyelonephritis in the past, admitted for IV antibiotics while awaiting infectious workup Continue IV cefepime considering past urine culture from last year Agree with plans as detailed by Michelle LINDER I spent a total of 35 minutes coordinating, documenting and providing care for this patient excluding time spent in performance of separately billed services
[2024-08-15] MEDS: ACETAMINOPHEN 325 MG TAB PO STA (18:48)
--- OUTSIDE RECORDS SUMMARY | 2024-08-15 19:04 | External Medical Summary | Summary of Care ---
Author Name Unknown Organization [facility] Address [address] [place] [address] Phone [phone] Care Team Providers Care Photo Manager Name Role Phone Ghislaine Hernandez DO Primary Care Provider [phone] Reason for Visit * Reason Onset Date Comments Follow Up 08/05/2024 Encounter Details Date Type Department Care Team ([facility] st Contact Info) Description 08/05/2024 Telephone Nephrology, Luis Carney [address] [facility] [place] [address] Krystal Pond MD [address] [place] [address] Follow Up Allergies Active Allergy Reactions Criticality Noted Date Comments Bee Venom Edema airway,Edema Other High 01/15/2014 Eye swelled shut Ciprofloxacin Other (Please comment) Medium 11/24/2016 Trouble breathing, nausea Furosemide Rash 08/02/2023 Lisinopril High 08/14/2023 angioedema Nitrofurantoin 11/08/2018 vomiting Sulfa Antibiotics Hives,Other (Please comment) 01/15/2014 Boil/Acne like sores on abdomen documented as of this encounter (statuses as of 08/06/2024) Medications Aspirin 81 MG Tablet Take 1 Tablet by mouth in the morning. 90 Tab 8 Active cholecalciferol, VIT D3, (VITAMIN D3) 1000 UNITS Tablet Take 1 Tablet by mouth in the morning. 0 Active OneTouch Ultra Blue In Vitro Strip (Glucose Blood)Indications: Type 2 diabetes mellitus with hemoglobin A1c goal of less than 7.0% ([facility]) Use to test blood sugar once daily 100 Strip 11 1 Active Zoster Vac Recomb Adjuvanted 50 MCG/0.5ML Intramuscular Suspension Reconstituted (Shingrix)Indicati ons:Need for vaccination for zoster Inject 0.5 mL into a large muscle now and repeat dose in 60 to 180 days 1 Each 1 3 Active Rocklatan 0.02-0.005 % Ophthalmic Solution (Netarsudil-Latano prost) Instill 1 Drop into both eyes every evening. 7.5 mL 3 4 Active Famotidine 20 MG Oral Tablet (Pepcid)Indication s:Gastroesophageal reflux disease with esophagitis, unspecified whether hemorrhage Take 1 Tablet by mouth in the morning and 1 Tablet before bedtime. 180 Tablet 3 4 Active EPINEPHrine 0.3 MG/0.3ML Injection Solution Auto-injector (Autoinjector) 0.3 mg. 4 Active Atorvastatin Calcium 40 MG Oral Tablet (Lipitor)Indicatio ns:Dyslipidemia, goal LDL below 100 Take 1 tablet by mouth once daily 90 Tablet 3 4 Active amLODIPine Besylate 10 MG Oral Tablet (Norvasc)Indicatio ns:HTN, goal below 130/80 Take 1 tablet by mouth once daily 90 Tablet 3 4 Active metFORMIN HCl ER 500 MG Oral Tablet Extended Release 24 Hour (Glucophage XR)Indications:Typ e 2 diabetes mellitus with hemoglobin A1c goal of less than 7.0% ([facility]) Take 1 tablet by mouth once daily 90 Tablet 3 4 Active Folic Acid 1 MG Oral TabletIndications: Folic acid deficiency TAKE 1 TABLET BY MOUTH IN THE MORNING 30 Tablet 11 5 Active Mometasone Furoate 0.1 % External Ointment APPLY OINTMENT TOPICALLY TO AFFECTED AREA TWICE DAILY FOR 2 WEEKS 45 g 5 Active Dorzolamide HCl-Timolol Mal 2-0.5 % Ophthalmic Solution (Cosopt Ocumeter Plus) INSTILL 1 DROP INTO BOTH EYES IN THE MORNING AND BEFORE BEDTIME. 5 Active glipiZIDE 5 MG Oral Tablet (Glucotrol) Take 1/2 (one-half) tablet by mouth once daily 45 Tablet 1 5 Active hydrALAZINE HCl 25 MG Oral Tablet (Apresoline) Take 2 Tablets by mouth in the morning and 2 Tablets at noon and 2 Tablets in the evening and 2 Tablets before bedtime. 120 Tablet 11 5 Active Atenolol 25 MG Oral Tablet (Tenormin)Indicati ons:HTN, goal below 130/80 Take 0.5 Tablets by mouth in the morning. 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, unspecified proliferative retinopathy type (HCC) 1.5 mg IJ PRN 05/28/2024 05/28/2025 Ac tive documented as of this encounter (statuses as of 08/06/2024) Active Problems Problem Noted Date Diagnosed Date Neovascular glaucoma of left eye, moderate stage 12/12/2023 Benign hypertension with stage 3b chronic kidney [...] A1c goal of less than 7.0% 07/17/2014 Overview (08/03/2015): ICD-10 update of inactive term documented as of this encounter (statuses as of 08/06/2024) Resolved Problems Problem Noted Date Diagnosed Date [...] as of this encounter (statuses as of 08/06/2024) Immunizations Name Administration Dates Next Due COVID-19 mRNA, LNP-s, No Pre serve, 2-Dose Series (Pfizer) 09/03/2020,08/13/2020 Pneumococcal Conjugate Vacc, 13 Valent (Prevnar) 08/22/2016 Pneumococcal Polysaccharide PPV23 (Pneumovax) 11/26/2019,08/06/2014 Season Influenza, Quad, PF, Adjuvanted, 65+ Yrs, IM (FLUAD) 02/11/2020 Seasonal Influenza Vac., MDV , IM, 0.5 mL (Fluzone) 07/29/2014 Seasonal Influenza, High Dos e, Trivalent, PF, IM (Fluzone HD) 01/16/2024 Seasonal Influenza, PF, 6 M & above, IM , (FluLaval or Fluzone) 02/06/2018,03/15/2017 Seasonal Influenza, Quadriva lent Hd (Fluzone Hd) 01/03/2023,12/21/2021,12/14/2020 Seasonal Influenza, Quadriva lent, No Preserve, IM 12/28/2015,06/24/2015 Seasonal Influenza, Trivalen t, Adjuvanted, 65+ YRS, PF, (Fluad) 01/30/2019 TDAP (age 10 and older)(Boostrix) 07/17/2014 Varicella Zoster Vaccine Adult (Zostavax) 2015 Zoster Vaccine Recombinant (Shingrix) 12/01/2018 documented as of this encounter Social History Tobacco Use Types Packs/Day Years Used Date Smoking Tobacco: Never Smokeless Tobacco: Never Alcohol Use Standard Drinks/Week Comments No 0 (1 standard drink = 0.6 oz pur e alcohol) PHQ-2 Answer Date Recorded PHQ Adult Total Score 0 08/14/2023 Hunger Vital Sign Answer Date Recorded Within the past 12 months, y ou worried that your food would run out before you got the money to buy more. Never true 11/17/19 23 Within the past 12 months, t he food you bought just didn't last and you didn't have money to get more. Never true 11/16/2022 Childcare Answer Date Recorded Do you feel overwhelmed with taking care of a child, family member or friend? No 11/16/2022 Does your family need help f inding childcare? (Household - for ages 0-17 years) Not on file 11/16/2022 Clothing Answer Date Recorded Have you been unable to get clothing when it was really needed? No 11/16/2022 Is your family able to get c lothes or diapers when needed? (Household - for ages 0-17 years) Not on file 11/16/2022 Personal Safety Answer Date Recorded Do you feel unsafe or have concerns for your saf ety? No 11/16/2022 Do you have concerns for you r family's safety? (Household - for ages 0-17 years) Not on file 11/16/2022 Utilities Answer Date Recorded Do you have trouble paying y our heating, water, or electric bill? No 11/16/2022 Is your family able to pay t he heat, water, or electric bill? (Household - for ages 0-17 years) Not on file 11/16/2022 Does your family have access to good internet? (Household - for ages 0-17 years) Not on file 11/16/2022 Employment Status Answer Date Recorded Are you unemployed or without regular income? No 11/16/2022 Does the household have a re gular source of income? (Household - for ages 0-17 years) Not on file 11/16/2022 Social Connections Answer Date Recorded How often do you feel lonely or isolated from th ose around you? Never 11/16/2022 Financial Resource Strain Answer Date R ecorded Do you have any trouble payi ng for your medications, or do you think you might in the future? No 11/16/2022 Does your family have troubl e paying for medicine? (Household - for ages 0-17 years) Not on file 11/16/2022 Transportation Needs Answer Date Record ed READ ONLY Do you have troubl e getting a ride to medical visits or work? Never True 11/16/2022 Does your family have a hard time getting a ride to doctors visits? (Household - for ages 0-17 years) Not on file 11/16/2022 Has lack of transportation k ept you from medical appointments, meetings, work, or from getting things needed for daily living? Check all that apply. (Adult - for ages 18 years and over) Not on file 11/16/2022 Do you (or your family) have trouble finding or paying for a ride (transportation)? (Household - for ages 0-17 years) Not on file 11/16/2022 Housing Stability Answer Date Recorded Do you currently live in a s helter or have no steady place to sleep at night? No 11/16/2022 READ ONLY Do you think you a re at risk of becoming homeless? No 11/16/2022 Does your family worry about paying for your home or becoming homeless? (Household - for ages 0-17 years) Not on file 0 11/16/2022 Are you homeless or worried that you might be in the future? (Adult - for ages 18 years and over) Not on file Are you (or your family) benito eless or worried that you might be in the future? (Household - for ages 0-17 years) Not on file Food Insecurity Answer Date Recorded Do you need food for this week? No 11/16/2022 Are you able to get enough f ood for your family? (Household - for ages 0-17 years) Not on file 11/16/2022 Does your family need food t his week? (Household - for ages 0-17 years) Not on file 11/16/2022 Do you always have enough fo od for your family? (Household - for ages 0-17 years) Not on file 11/16/2022 Comments No Sex and Gender Information Value Date Recorded Sex Assigned at Female 06/23/2019 10:06 AM EDT Legal Sex Female 5:59 AM EST Gender Identity Female 06/23/2019 10:06 AM EDT Sexual Orientation Straight 06/23/2019 10 :06 AM EDT documented as of this encounter Miscellaneous Notes * Telephone Encounter - Krystal Pond MD - 08/05/2024 4:09 PM EDT Have we validated her home cuff ? If not pls facilitate then smbp log; pls ensure f/u appt per lastOV note No update on zio yet * Telephone Encounter - Jailyn Campoverde RN - 08/05/2024 11:49 AM EDT TE with pt. She reports that she is feeling fine and walking daily as she normally does. No symptoms of UTI. Bps are 140s-150s/50s-60s and pulse is 46-54. * Telephone Encounter - Jailyn Campoverde RN - 08/05/2024 9:48 AM EDT ----- Message from Krystal Pond MD sent at 07/29/2024 3:01 PM EDT ----- Neph nurse Pls check in on pt to see how she's doing after OV 07/29 w/ -uncontrolled bp SBP 170s -bradycardia to 40s -UTI sx (urine specimen contaminated >> offer to recheck w/ UACM, urine cx Dr Mary CALL documented in this encounter Plan of Treatment Upcoming Encounters Date Type Department Care Team (Late st Contact Info) Description 08/26/2024 9:20 AM EDT Office Visit Family [address] [place] [address] Ghislaine Hernandez, DO [address] [place] [address] 08/28/2024 2:20 PM EDT Office Visit Nephrology, [facility] [address] [facility] [place], [place] [address] Krystal Pond MD [address] [facility] [place], [place] [address] 08/29/2024 7:15 AM EDT Cardiac Studies Cardiac Studies, [facility] [address] [place] [phone] 09/10/2024 1:00 PM EDT Office Visit Family Practice [facility] [address] [place] [address] Ghislaine Hernandez, DO [address] [place] [address] 09/25/2024 9:45 AM EDT Office Visit Ophthalmology, [facility] [address] [place] [phone] Nitish Crooks, DO [address] [place] [address] Nurse Jarod Gonzales [address] [place] [address] Photographer Nubia Gonzales [address] [place] [address] 10/01/2024 10:00 AM EDT Imaging Radiology [facility] [place] [address] [place] [address] 01/02/2025 3:00 PM EDT Office Visit [facility] [address] [address] Carolina Ramirez MD [address] [place] [address] Scheduled Procedures Name Priority Associated Diagnoses Date/Ti me COLONOSCOPY FLEXIBLE PROXIMA L DIAGNOSTIC Recall Encounter for screening colonoscopy Health Maintenance Due Date Last Done Comments Cologuard 08/16/1996 Sigmoidoscopy 08/16/1996 Zoster Vaccines (3 of 3) 01/26/2019 12/01/2018, 12/09 Adult Wellness Visit 06/22/2020 06/23/2019 COVID-19 Vaccine ( season) 2023 09/03/2020, 08/13/2020 Fecal Occult Blood Test 04/11/2024 04/11/2023, 10/05 DXA Scan 04/30/2024 04/30/2017 Diabetic Foot Exam 07/03/2024 07/04/2023, 0 06/28/2022, 06/14/2021, Additional history exists DTap/Tdap Vaccines (2 - Td or Tdap) 07/17/2024 07/17/2014 HbA1c 07/18/2024 01/18/2024, 06/08, 01/15/2023, Additional history exists Albumin/Creatinine Ratio 08/01/2024 024, 07/06/2023, 07/11/2022, Additional history exists Depression Screening 08/13/2024 08/14/2023 Mammogram 09/30/2024 10/01/2023, 09/08, 09/27/2022, Additional history exists B-12 01/17/2025 01/18/2024, 03/10, 01/15/2023, Additional history exists GFR 01/28/2025 07/29/2024, 01/07, 08/14/2023, Additional history exists Diabetic Eye Exam 04/17/2025 04/17/2024, , 11/13/2022, Additional history exists CKD HGB USE SMARTSET 19911 07/29/202507/29, 07/29/2024, 01/18/2024, Additional history exists CKD PHOS USE SMARTSET 25875 07/29/202507/09, 07/04/2023, 07/11/2022, Additional history exists Colonoscopy 12/07/2027 12/06/2017, 11/09, 11/16/2014, Additional history exists Colorectal Cancer Screening 12/07/2027 Lipid Panel 01/17/2029 01/18/2024, 03/10, 12/21/2021, Additional history exists Pneumococcal Vaccine: 50+ Years Completed 11/26/2019, 08/22/2016, 08/06/2014 Influenza Vaccine (FLU shot) Completed 12/2023, 01/03/2023, 12/21/2021, Additional history exists HPV (Gardasil) Vaccine Aged Out No lo nger eligible based on patient's age to complete this topic Hepatitis B Vaccine Aged Out No longe r eligible based on patient's age to complete this topic MENINGOCOCCAL (MENACTRA/MENVEO) Aged Out No longer eligible based on patient's age to complete this topic Meningitis B Vaccine (Bexsero/Trumemba) Aged Out No longer eligible based on patient's age to complete this topic documented as of this encounter Medical Devices Implanted Type Area Gang Investigator Device Identifier Shelf Expiration Date Model / Serial / Lot Shunt Tube Glaucoma Ahmed Fp7 - [id number] - [id number] Implanted:Qty: 1 on 11/17/2022 by Carolina Ramirez MD at [facility] Right: Eye [employer] [id number] 09/17/2024 TRACY / [id number] / [id number] Graft [place] Cornea Split - [id number] Implanted:Qty: 1 on 11/17/2022 by Carolina Ramirez MD at [facility] Right: Eye [employer] 09/11/2024 O-1 / [id number] / [id number] Shunt Tube Glaucoma Ahmed Fp7 - [id number] Implanted:Qty: 1 on 12/18/2023 by Carolina Ramirez MD at [facility] Left: Eye [employer] [id number] 10/24/2025 [facility] / [id number] / [id number] Graft [place] Cornea Split - [id number] Implanted:Qty: 1 on 12/18/2023 by Carolina Ramirez MD at [facility] Left: Eye [employer] 10/21/2025 HCO-HH1 / [id number] / [id number] documented as of this encounter Advance Directives * Full Code (Latest Code Status on File) Date Activated Date Inactivated Comments 12/18/2023 6:37 AM 12/18/2023 1:29 PM Question Answer Comments Discussion of Advance Direct jf occurred with: Not Discussed due to patient's condition * Full Code Date Activated Date Inactivated Comments 07/28/2014 3:21 PM 07/31/2014 4:03 PM This order r eflects the patients wishes and were consensually agreed upon. Care Teams Photo Manager Relationship Specialty Start Date End Date Ghislaine Hernandez DO [address] [facility] [place] [address] PCP - General Family Medicine 07/09/14 documented as of this encounter
--- OUTSIDE RECORDS SUMMARY | 2024-08-15 19:04 | External Medical Summary | Summary of Care ---
Author Name Unknown Organization [facility] Address [address] [place] [address] Phone [phone] Care Team Providers Care Game Designer/Creative Director Name Role Phone Ghislaine Hernandez DO Primary Care Provider [phone] Reason for Visit * Reason Onset Date Comments Follow Up 08/05/2024 Encounter Details Date Type Department Care Team ([facility] st Contact Info) Description 08/05/2024 Telephone Nephrology, Luis Carney 200 [place] [address] Krystal Pond MD [address] [place] [address] Follow Up Allergies Active Allergy Reactions Criticality Noted Date Comments Bee Venom Edema airway,Edema Other High 01/15/2014 Eye swelled shut Ciprofloxacin Other (Please comment) Medium 11/24/2016 Trouble breathing, nausea Furosemide Rash 08/02/2023 Lisinopril High 08/14/2023 angioedema Nitrofurantoin 11/08/2018 vomiting Sulfa Antibiotics Hives,Other (Please comment) 01/15/2014 Boil/Acne like sores on abdomen documented as of this encounter (statuses as of 08/05/2024) Medications Aspirin 81 MG Tablet Take 1 Tablet by mouth in the morning. 90 Tab 8 Active cholecalciferol, VIT D3, (VITAMIN D3) 1000 UNITS Tablet Take 1 Tablet by mouth in the morning. 0 Active OneTouch Ultra Blue In Vitro Strip (Glucose Blood)Indications: Type 2 diabetes mellitus with hemoglobin A1c goal of less than 7.0% ([facility]) Use to test blood sugar once daily [...] A1c goal of less than 7.0% ([facility]) Take 1 tablet by mouth once [...] as of this encounter (statuses as of 08/05/2024) Active Problems Problem Noted Date Diagnosed Date [...] as of this encounter (statuses as of 08/05/2024) Resolved Problems Problem Noted Date Diagnosed Date [...] as of this encounter (statuses as of 08/05/2024) Immunizations Name Administration Dates Next Due COVID-19 [...] 08/26/2024 9:20 AM EDT Office Visit Family [address] [place] [address] Ghislaine Hernandez, DO [address] [place] [address] 08/28/2024 2:20 PM EDT Office Visit Nephrology, [facility] [address] [facility] [place], [place] [address] Krystal Pond MD [address] [facility] [place], [place] [address] 08/29/2024 7:15 AM EDT Cardiac Studies Cardiac Studies, [facility] [address] [place] [phone] 09/10/2024 1:00 PM EDT Office Visit Family Practice [facility] [address] [place] [address] Ghislaine Hernandez, DO [address] [place] [address] 09/25/2024 9:45 AM EDT Office Visit Ophthalmology, [facility] [address] [place] [phone] Nitish Crooks, DO [address] [place] [address] Nurse Jarod Gonzales [address] [place] [address] Photographer Nubia Gonzales [address] [place] [address] 10/01/2024 10:00 AM EDT Imaging Radiology [facility]st [facility] [place] [address] [place] [address] 01/02/2025 3:00 PM EDT Office Visit [facility] [address] [address] Carolina Ramirez MD [address] [place] [address] Scheduled Procedures Name Priority Associated [...] Additional history exists CKD HGB USE SMARTSET 44905 07/29/202507/29, 07/29/2024, 01/18/2024, Additional history exists CKD PHOS USE SMARTSET 61967 07/29/202507/09, 07/04/2023, 07/11/2022, Additional history exists Colonoscopy [...] this encounter Medical Devices Implanted Type Area Histotechnologist Supervisor Device Identifier Shelf Expiration Date Model / Serial / Lot Shunt Tube Glaucoma Ahmed Fp7 - [id number] - [id number] Implanted:Qty: 1 on 11/17/2022 by Carolina Ramirez MD at [facility] Right: Eye [employer] [id number] 09/17/2024 TRACY / [id number] / [id number] Graft [place] Cornea Split - [id number] Implanted:Qty: 1 on 11/17/2022 by Carolina Ramirez MD at [facility] Right: Eye [employer] 09/11/2024 O-1 / [id number] / [id number] Shunt Tube Glaucoma Ahmed Fp7 - [id number] Implanted:Qty: 1 on 12/18/2023 by Carolina Ramirez MD at [facility] Left: Eye [employer] [id number] 10/24/2025 [facility] / [id number] / [id number] Graft [place] Cornea Split - [id number] Implanted:Qty: 1 on 12/18/2023 by Carolina Ramirez MD at [facility] Left: Eye [employer] 10/21/2025 HCO-HH1 / [id number] / [id number] documented as of this encounter Advance [...] and were consensually agreed upon. Care Teams Game Designer/Creative Director Relationship Specialty Start Date End Date Ghislaine Hernandez DO [address] [facility] [place] [address] PCP - General Family Medicine 07/09/14 documented as of this encounter
--- OUTSIDE RECORDS SUMMARY | 2024-08-15 19:04 | External Medical Summary | Summary of Care ---
Author Name Unknown Organization [facility] Address [address] [place] [address] Phone [phone] Care Team Providers Care Industrial Eng Name Role Phone Joseph Navarro DO Primary Care Provider [phone] Reason for Visit * Reason Comments eRx-Medication Refill Encounter Details Date Type Department Care Team (Late st Contact Info) Description 08/10/2024 Refill Family Practice [facility] [address] [facility] [address] Joseph Navarro DO [address] [place] [address] Gastroesophageal reflux disease with esophagitis, unspecified whether hemorrhage Allergies Active Allergy Reactions Criticality Noted Date Comments Bee Venom Edema airway,Edema Other High 01/15/2014 Eye swelled shut Ciprofloxacin Other (Please comment) Medium 11/24/2016 Trouble breathing, nausea Furosemide Rash 08/02/2023 Lisinopril High 08/14/2023 angioedema Nitrofurantoin 11/08/2018 vomiting Sulfa Antibiotics Hives,Other (Please comment) 01/15/2014 Boil/Acne like sores on abdomen documented as of this encounter (statuses as of 08/12/2024) Medications Aspirin 81 MG Tablet Take 1 Tablet by mouth in the morning. 90 Tab 09/05/19 18 Active cholecalciferol, VIT D3, (VITAMIN D3) 1000 UNITS Tablet Take 1 Tablet by mouth in the morning. 04/17/19 20 Active OneTouch Ultra Blue In Vitro Strip (Glucose Blood)Indications :Type 2 diabetes mellitus with hemoglobin A1c goal of less than 7.0% ([facility]) Use to test blood sugar once daily 100 Strip 11 06/12/19 21 Active Zoster Vac Recomb Adjuvanted 50 MCG/0.5ML Intramuscular Suspension Reconstituted (Shingrix)Indicat ions:Need for vaccination for zoster Inject 0.5 mL into a large muscle now and repeat dose in 60 to 180 days 1 Each 1 06/29/19 23 Active Rocklatan 0.02-0.005 % Ophthalmic Solution (Netarsudil-Latan oprost) Instill 1 Drop into both eyes every evening. 7.5 mL 3 04/19/19 24 Active EPINEPHrine 0.3 MG/0.3ML Injection Solution Auto-injector (Autoinjector) 0.3 mg. 08/09/19 24 Active Atorvastatin Calcium 40 MG Oral Tablet (Lipitor)Indicati ons:Dyslipidemia, goal LDL below 100 Take 1 tablet by mouth once daily 90 Tablet 3 01/21/20 24 Active amLODIPine Besylate 10 MG Oral Tablet (Norvasc)Indicati ons:HTN, goal below 130/80 Take 1 tablet by mouth once daily 90 Tablet 3 02/26/20 24 Active metFORMIN HCl ER 500 MG Oral Tablet Extended Release 24 Hour (Glucophage XR)Indications:Ty pe 2 diabetes mellitus with hemoglobin A1c goal of less than 7.0% ([facility]) Take 1 tablet by mouth once daily 90 Tablet 3 03/08/20 24 Active Folic Acid 1 MG Oral TabletIndications :Folic acid deficiency TAKE 1 TABLET BY MOUTH IN THE MORNING 30 Tablet 11 04/25/19 25 Active Mometasone Furoate 0.1 % External Ointment APPLY OINTMENT TOPICALLY TO AFFECTED AREA TWICE DAILY FOR 2 WEEKS 45 g 07/15/19 25 Active Dorzolamide HCl-Timolol Mal 2-0.5 % Ophthalmic Solution (Cosopt Ocumeter Plus) INSTILL 1 DROP INTO BOTH EYES IN THE MORNING AND BEFORE BEDTIME. 07/12/19 25 Active glipiZIDE 5 MG Oral Tablet (Glucotrol) Take 1/2 (one-half) tablet by mouth once daily 45 Tablet 1 07/24/19 25 Active hydrALAZINE HCl 25 MG Oral Tablet (Apresoline) Take 2 Tablets by mouth in the morning and 2 Tablets at noon and 2 Tablets in the evening and 2 Tablets before bedtime. 120 Tablet 11 07/30/19 25 Active Atenolol 25 MG Oral Tablet (Tenormin)Indicat ions:HTN, goal below 130/80 Take 0.5 Tablets by mouth in the morning. 45 Tablet 1 07/30/19 25 Active Famotidine 20 MG Oral Tablet (Pepcid)Indicatio ns:Gastroesophage al reflux disease with esophagitis, unspecified whether hemorrhage Take 1 tablet by mouth twice daily 180 Tablet 2 08/13/19 25 Active Famotidine 20 MG Oral Tablet (Pepcid)Indicatio ns:Gastroesophage al reflux disease with esophagitis, unspecified whether hemorrhage Take 1 Tablet by mouth in the morning and 1 Tablet before bedtime. 180 Tablet 3 07/04/19 24 025 Discontinued Hospital, Clinic, or Other Facility Administered [...] as of this encounter (statuses as of 08/12/2024) Active Problems Problem Noted Date Diagnosed Date [...] as of this encounter (statuses as of 08/12/2024) Resolved Problems Problem Noted Date Diagnosed Date [...] as of this encounter (statuses as of 08/12/2024) Immunizations Name Administration Dates Next Due COVID-19 mRNA, LNP-s, No Pre serve, 2-Dose Series (gBox) 09/03/2020,08/13/2020 Pneumococcal Conjugate Vacc, 13 Valent (Prevnar) [...] encounter Miscellaneous Notes * Telephone Encounter - Modesta Archer [facility] - 08/12/2024 9:53 AM EDTSigned Prescriptions: Disp Refills Famotidine 20 MG Oral Tablet (Pepcid) 180 Ta*2 Sig: Take 1 tablet by mouth twice dailyAuthorizing Provider: JOSEPH NAVARRO User: MODESTA ARCHER------- documented in this encounter Plan of Treatment Upcoming Encounters Date Type Department Care Team (Late st Contact Info) Description 08/26/2024 9:20 AM EDT Office Visit Family Practice [facility] [address] [address] Joseph Navarro DO [address] [place] [address] 08/28/2024 2:20 PM EDT Office Visit NephrologyLuis [address] [place] [address] Krystal Pond MD [address] [place] [address] 08/29/2024 7:15 AM EDT Cardiac Studies Cardiac Studies, [facility] [address] [place] [address] 09/10/2024 1:00 PM EDT Office Visit Family Practice [facility] [address] [place] [address] Joseph Navarro, DO [address] [place] [address] 09/25/2024 9:45 AM EDT Office Visit Ophthalmology, [facility] [address] [place], [place] [address] Nitish Crooks, DO [address] [place], [place] [address] Christian Nurse Jarod Nubia [address] [place], [place] [address] Christian Quality Assurance Analyst Nubia [address] [place], [place] [address] 10/01/2024 10:00 AM EDT Imaging Radiology [facility] 1st [facility], [place] [address] [place] [address] 01/02/2025 3:00 PM EDT Office Visit [facility] [address] [place] [address] Carolina Ramirez MD [address] [place] [address] Scheduled Procedures Name Priority Associated Diagnoses Date/Ti [...] Additional history exists CKD HGB USE SMARTSET 15214 07/29/202507/29, 07/29/2024, 01/18/2024, Additional history exists CKD PHOS USE SMARTSET 71689 07/29/202507/09, 07/04/2023, 07/11/2022, Additional history exists Colonoscopy [...] this encounter Medical Devices Implanted Type Area Sinter Feeder Device Identifier Shelf Expiration Date Model / Serial / Lot Shunt Tube Glaucoma Ahmed Fp7 - [id number] - [id number] Implanted:Qty: 1 on 11/17/2022 by Carolina Ramirez MD at [facility] Right: Eye [employer] [id number] 09/17/2024 FP7 / [id number] / [id number] 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 - [id number] Implanted:Qty: 1 on 11/17/2022 by Carolina Ramirez MD at [facility] Right: Eye LI6Waves [employer] 09/11/2024 HCO-HH1 / [id number] / [id number] Shunt Tube Glaucoma Ahmed Fp7 - [id number] Implanted:Qty: 1 on 12/18/2023 by Carolina Ramirez MD at [facility] Left: Eye [employer] [id number] 10/24/2025 FP7 / [id number] / [id number] 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 Care Teams Industrial Eng Relationship Specialty Start Date End Date Joseph Navarro DO [address] [facility] [place] [address] PCP - General Family Medicine 07/09/14 documented as of this encounter
--- OUTSIDE RECORDS SUMMARY | 2024-08-15 19:04 | External Medical Summary | Summary of Care ---
Author Name Unknown Organization [facility] Address [address] [place] [address] Phone [phone] Care Team Providers Care Cross Country Truck Driver Name Role Phone Ghislaine Hernandez DO Primary Care Provider [phone] Reason for Visit * Reason Onset Date Comments Health Maintenance 07/31/2024 Encounter Details Date Type Department Care Team (Late st Contact Info) Description 07/31/2024 Telephone Family Practice [facility] [address] [facility] [place] [address] Ghislaine Hernandez DO [address] [facility] [place] [address] Health Maintenance Allergies Active Allergy Reactions Criticality Noted Date Comments Bee Venom Edema airway,Edema Other High 01/15/2014 Eye swelled shut Ciprofloxacin Other (Please comment) Medium 11/24/2016 Trouble breathing, nausea Furosemide Rash 08/02/2023 Lisinopril High 08/14/2023 angioedema Nitrofurantoin 11/08/2018 vomiting Sulfa Antibiotics Hives,Other (Please comment) 01/15/2014 Boil/Acne like sores on abdomen documented as of this encounter (statuses as of 07/31/2024) Medications Aspirin 81 MG Tablet Take 1 [...] of less than 7.0% ([facility]) Take 1 tablet by mouth once [...] Route Frequency Start Date End Date Status Yanethksdariana-svoa (Vabyo) prefilled syringe inj 6 mgIndications:Proliferative diabetic retinopathy [...] as of this encounter (statuses as of 07/31/2024) Active Problems Problem Noted Date Diagnosed Date [...] as of this encounter (statuses as of 07/31/2024) Resolved Problems Problem Noted Date Diagnosed Date [...] as of this encounter (statuses as of 07/31/2024) Immunizations Name Administration Dates Next Due COVID-19 mRNA, LNP-s, No Pre serve, 2-Dose Series (EverTune) 09/03/2020,08/13/2020 Pneumococcal Conjugate Vacc, 13 Valent (Prevnar) [...] encounter Miscellaneous Notes * Telephone Encounter - Divya Rendon LPN - 07/31/2024 11:09 AM EDT Care Gaps Comprehensive Care Outreach Last Office/Telemedicine Visit: 01/16/2024 (in office), Visit date not found (telemedicine) Next Office Visit: 08/26/2024 Hemoglobin AIC Results: Lab Results Component Value Date/Time HEMOGLOBIN A1C - [facility] 6.9 (H) 01/18/2024 09:43 AM HEMOGLOBIN A1C - [facility] 7.3 (H) 07/04/2023 03:02 PM HEMOGLOBIN A1C - [facility] 6.7 (H) 01/15/2023 03:15 PM HEMOGLOBIN A1C - [facility] 6.5 (H) 09/20/2019 09:37 AM HEMOGLOBIN A1C - [facility] 6.9 (H) 03/13/2019 10:25 AM HEMOGLOBIN A1C - [facility] 6.7 (H) 09/10/2018 11:42 AM BP Readings from Last 1 Encounters: 07/29/24 175/66 Reviewed Health Maintenance below: Health Maintenance Topic Date Due Zoster Vaccines (3 of 3) 01/26/2019 Adult Wellness Visit 06/22/2020 COVID-19 Vaccine (3 - season) 2023 DXA Scan 04/30/2024 Diabetic Foot Exam 07/03/2024 DTap/Tdap Vaccines (2 - Td or Tdap) 07/17/2024 HbA1c 07/18/2024 Albumin/Creatinine Ratio 08/01/2024 Depression Screening 08/13/2024 Mammogram 09/30/2024 Mamm Irene already scheduled Labs needs A1c urine add to labs two days ago dexa Care Gap Outreach Action Taken: Left message documented in this encounter Plan of Treatment Upcoming Encounters Date Type Department Care Team (Late st Contact Info) Description 08/26/2024 9:20 AM EDT Office Visit Family Practice [facility] [address] [place] [address] Ghislaine Hernandez, DO [address] [place] [address] 08/29/2024 7:15 AM EDT Cardiac Studies Cardiac Studies, [facility] [address] [place] [address] 09/10/2024 1:00 PM EDT Office Visit Family Practice [facility] [address] [place] [address] Ghislaine Hernandez, DO [address] [place] [address] 09/25/2024 9:45 AM EDT Office Visit Ophthalmology, [facility] [address] [place] [address] Nitish Crooks, DO [address] [place] [address] Nurse Jarod Gonzales [address] [place] [address] Photographer Nubia Gonzales [address] [place] [address] 10/01/2024 10:00 AM EDT Imaging Radiology [facility] 1st [facility] [address] [place] [address] 01/02/2025 3:00 PM EDT Office Visit [facility] [address] [facility] [place] [address] Carolina Ramirez MD [address] [place] [address] Scheduled Procedures Name Priority Associated Diagnoses Date/Ti me COLONOSCOPY FLEXIBLE PROXIMA L DIAGNOSTIC Recall Encounter for screening colonoscopy Health Maintenance Due Date Last Done Comments Cologuard 08/16/1996 Sigmoidoscopy 08/16/1996 Zoster Vaccines (3 of 3) 01/26/2019 12/01/2018, 12/09 Adult Wellness Visit 06/22/2020 06/23/2019 COVID-19 Vaccine ( - season) 2023 09/03/2020, 08/13/2020 Fecal Occult Blood [...] Additional history exists CKD HGB USE SMARTSET 10554 07/29/202507/29, 07/29/2024, 01/18/2024, Additional history exists CKD PHOS USE SMARTSET 38288 07/29/202507/09, 07/04/2023, 07/11/2022, Additional history exists Colonoscopy [...] this encounter Medical Devices Implanted Type Area Telecommunications Engineer Device Identifier Shelf Expiration Date Model / Serial / Lot Shunt Tube Glaucoma Ahmed Fp7 - [id number] - [id number] Implanted:Qty: 1 on 11/17/2022 by Carolina Ramirez MD at [facility] Right: Eye [employer] [id number] 09/17/2024 FPAugustus / [id number] / [id number] 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 - [id number] Implanted:Qty: 1 on 11/17/2022 by Carolina Ramirez MD at [facility] Right: Eye Ping[employer] 09/11/2024 HCO-HH1 / [id number] / [id number] Shunt Tube Glaucoma Ahmed Fp7 - [id number] Implanted:Qty: 1 on 12/18/2023 by Carolina Ramirez MD at [facility] Left: Eye [employer] [id number] 10/24/2025 FPAugustus / [id number] / [id number] 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 Care Teams Cross Country Truck Driver Relationship Specialty Start Date End Date Ghislaine Hernandez DO [address] [facility] [place] [address] PCP - General Family Medicine 07/09/14 documented as of this encounter
--- OUTSIDE RECORDS SUMMARY | 2024-08-15 19:04 | External Medical Summary | Summary of Care ---
Author Name Unknown Organization [facility] Address [address] [place] [address] Phone [phone] Care Team Providers Care Entertainment Manager Name Role Phone Ghislaine Hernandez DO Primary Care Provider [phone] Reason for Visit * Reason Comments Nurse Documentation EKG and zio placemen t Encounter Details Date Type Department Care Team (Late st Contact Info) Description 07/29/2024 11:00 AM EDT Nurse Only Ancillary Fernandomarianela [facility] [address] [place] [address] [facility], Nurse [facility] [address] [place] [address] Nurse Documentation (EKG and zio placement) Allergies Active Allergy Reactions Criticality Noted Date Comments Bee Venom Edema airway,Edema Other High 01/15/2014 Eye swelled shut Ciprofloxacin Other (Please comment) Medium 11/24/2016 Trouble breathing, nausea Furosemide Rash 08/02/2023 Lisinopril High 08/14/2023 angioedema Nitrofurantoin 11/08/2018 vomiting Sulfa Antibiotics Hives,Other (Please comment) 01/15/2014 Boil/Acne like sores on abdomen documented as of this encounter (statuses as of 08/14/2024) Medications Aspirin 81 MG Tablet Take 1 [...] as of this encounter (statuses as of 08/14/2024) Active Problems Problem Noted Date Diagnosed Date [...] as of this encounter (statuses as of 08/14/2024) Resolved Problems Problem Noted Date Diagnosed Date [...] as of this encounter (statuses as of 08/14/2024) Immunizations Name Administration Dates Next Due COVID-19 [...] AM EDT documented as of this encounter Progress Notes * Mari Law CMA - 07/29/2024 11:14 AM EDT Patient identified by name and date of . EKG explained and done as ordered. Please see EKG reports in chart Zio patch was also applied in clinic per providers orders. Zio was documented in Nephrology visit encounter because it was ordered/released in that encounter so I could not do it here. documented in this encounter Plan of Treatment Upcoming Encounters Date Type Department Care Team (Late st Contact Info) Description 08/26/2024 9:20 AM EDT Office Visit Family Practice [facility] [address] [place] [address] Ghislaine Hernandez DO [address] [place] [address] 08/28/2024 2:20 PM EDT Office Visit Nephrology, Luis Carney [address] [place] [address] Krystal Pond MD [address] [place] [address] 08/29/2024 7:15 AM EDT Cardiac Studies Cardiac Studies, [facility] [address] [place], [place] [address] 09/25/2024 9:45 AM EDT Office Visit Ophthalmology, [facility] [address] [place], [place] [address] Nitish Crooks, DO [address] [place] [address] Christian Nurse Jarod Nubia [address] [place] [address] Christian Advisor Consultant Nubia [address] [place], [place] [address] 10/01/2024 10:00 AM EDT Imaging Radiology [facility] 1st [facility], [place] [address] [place] [address] 01/02/2025 3:00 PM EDT Office Visit [facility] [address] [place] [address] Carolina Ramirez MD 16 [place] [address] 04/07/2025 10:40 AM EST Office Visit Family Practice [facility] [address] [place] [address] Ghislaine Hernandez, DO [address] [place] [address] Scheduled Procedures Name Priority Associated Diagnoses Date/Ti [...] Additional history exists CKD HGB USE SMARTSET 21152 07/29/202507/29, 07/29/2024, 01/18/2024, Additional history exists CKD PHOS USE SMARTSET 27502 07/29/202507/09, 07/04/2023, 07/11/2022, Additional history exists Colonoscopy [...] this encounter Medical Devices Implanted Type Area Industrial Nurse Device Identifier Shelf Expiration Date Model / Serial / Lot Shunt Tube Glaucoma Ahmed Fp7 - [id number] - [id number] Implanted:Qty: 1 on 11/17/2022 by Carolina Ramirez MD at [facility] Right: Eye [employer] [id number] 09/17/2024 FP7 / [id number] / [id number] 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 - [id number] Implanted:Qty: 1 on 11/17/2022 by Carolina Ramirez MD at [facility] Right: Eye [employer] 09/11/2024 O-1 / [id number] / [id number] Shunt Tube Glaucoma Ahmed Fp7 - [id number] Implanted:Qty: 1 on 12/18/2023 by Carolina Ramirez MD at [facility] Left: Eye [employer] [id number] 10/24/2025 FP7 / [id number] / [id number] 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 Care Teams Entertainment Manager Relationship Specialty Start Date End Date Ghislaine Hernandez DO [address] [place] [address] PCP - General Family Medicine 07/09/14 documented as of this encounter
--- OUTSIDE RECORDS SUMMARY | 2024-08-15 19:04 | External Medical Summary | Summary of Care ---
Author Name Unknown Organization [facility] Address [address] [place] [address] Phone [phone] Care Team Providers Care Box Nailer Name Role Phone Ghislaine Hernandez DO Primary Care Provider [phone] Reason for Visit * Reason Comments Nurse Documentation EKG and zio placemen t Encounter Details Date Type Department Care Team (Late st Contact Info) Description 07/29/2024 11:00 AM EDT Nurse Only Ancillary Fernandomarianela [facility] [address] [place] [address] [facility], Nurse [facility] [address] [place] [address] Nurse Documentation (EKG and zio placement) Allergies [...] 9:20 AM EDT Office Visit [facility] [address] [place] [address] Ghislaine Hernandez DO [address] [place] [address] 08/28/2024 2:20 PM EDT Office Visit Nephrology, [facility]ney [address] [place] [address] Krystal Pnod MD [address] [place] [address] 08/29/2024 7:15 AM EDT Cardiac Studies Cardiac Studies, [facility] [address] [place], [place] [address] 09/25/2024 9:45 AM EDT Office Visit Ophthalmology, [facility] [address] [place], [place] [address] Nitish Crooks, DO [address] [place] [address] Christian Nurse Jarod Nubia [address] [place] [address] Christian Assisted Sales Representative Nubia [address] [place], [place] [address] 10/01/2024 10:00 AM EDT Imaging Radiology [facility] 1st [facility] [place] [address] [place] [address] 01/02/2025 3:00 PM EDT Office Visit [facility] [address] [place] [address] Carolina Ramirez MD [address] [place] [address] 04/07/2025 10:40 AM EST Office Visit Family Practice [facility] [address] [place] [address] Ghislaine Hernandez, DO [address] [place] [address] Scheduled Procedures Name Priority Associated Diagnoses Date/Ti [...] Additional history exists CKD HGB USE SMARTSET 95578 07/29/202507/29, 07/29/2024, 01/18/2024, Additional history exists CKD PHOS USE SMARTSET 05517 07/29/202507/09, 07/04/2023, 07/11/2022, Additional history exists Colonoscopy [...] this encounter Medical Devices Implanted Type Area Parole Supervisor Device Identifier Shelf Expiration Date Model / Serial / Lot Shunt Tube Glaucoma Ahmed Fp7 - [id number] - [id number] Implanted:Qty: 1 on 11/17/2022 by Carolina Ramirez MD at [facility] Right: Eye [employer] [id number] 09/17/2024 FP7 / [id number] / [id number] 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 Care Teams Box Nailer Relationship Specialty Start Date End Date Ghislaine Hernandez DO [address] [place] [address] PCP - General Family Medicine 07/09/14 documented as of this encounter
--- OUTSIDE RECORDS SUMMARY | 2024-08-15 19:04 | External Medical Summary | Summary of Care ---
Author Name Unknown Organization [facility] Address [address] [place] [address] Phone [phone] Care Team Providers Care Metal Sprayer Name Role Phone Ghislaine Hernandez DO Primary Care Provider [phone] Reason for Visit * Reason Onset Date Comments Follow Up 08/05/2024 Encounter Details Date Type Department Care Team ([facility] st Contact Info) Description 08/05/2024 Telephone Nephrology, Luis Carney 200 [facility] [place] [address] Krystal Pond MD [address] [place] [address] Follow Up Allergies Active Allergy Reactions Criticality [...] hemoglobin A1c goal of less than 7.0% ([facility]) Use to test blood sugar [...] hemoglobin A1c goal of less than 7.0% ([facility]) Take 1 tablet by mouth [...] encounter Miscellaneous Notes * Telephone Encounter - Jailyn Campoverde RN [...] 9:20 AM EDT Office Visit Family Practice [facility] [address] [place] [address] Ghislaine Hernandez DO [address] [place] [address] 08/28/2024 2:20 PM EDT Office Visit NephrologyLuis [address] [place] [address] Kyrstal Pond MD 200 [facility] [place] [address] 08/29/2024 7:15 AM EDT Cardiac Studies Cardiac Studies, [facility] [address] [place] [address] 09/10/2024 1:00 PM EDT Office Visit Family Practice [facility] [address] [place] [address] Ghislaine Hernandez, DO [address] [place] [address] 09/25/2024 9:45 AM EDT Office Visit Ophthalmology, [facility] [address] [place] [address] Nitish Crooks, DO [address] [place] [address] Christian Nurse Jarod Nubia [address] [place] [address] [employer] Psychometrist Nubia [address] [place], [place] [address] 10/01/2024 10:00 AM EDT Imaging Radiology [facility] 1st Floor, [place] [address] [place] [address] 01/02/2025 3:00 PM EDT Office Visit [facility] Eye [facility] [address] [place] [address] Carolina Ramirez MD 16 [place] [address] Scheduled Procedures Name Priority Associated Diagnoses Date/Ti [...] Additional history exists CKD HGB USE SMARTSET 00749 07/29/202507/29, 07/29/2024, 01/18/2024, Additional history exists CKD PHOS USE SMARTSET 43207 07/29/202507/09, 07/04/2023, 07/11/2022, Additional history exists Colonoscopy [...] this encounter Medical Devices Implanted Type Area Flexboard Operator Device Identifier Shelf Expiration Date Model / Serial / Lot Shunt Tube Glaucoma Ahmed Fp7 - [id number] - [id number] Implanted:Qty: 1 on 11/17/2022 by Carolina Ramirez MD at [facility] Right: Eye [employer] [id number] 09/17/2024 FP7 / [id number] / [id number] 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 - [id number] Implanted:Qty: 1 on 11/17/2022 by Carolina Ramirez MD at [facility] Right: Eye [employer] 09/11/2024 HCO-HH1 / [id number] / [id number] Shunt Tube Glaucoma Ahmed Fp7 - [id number] Implanted:Qty: 1 on 12/18/2023 by Carolina Ramirez MD at [facility] Left: Eye [employer] [id number] 10/24/2025 FP7 / [id number] / [id number] 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 Care Teams Metal Sprayer Relationship Specialty Start Date End Date Ghislaine Hernandez DO [address] [place] [address] PCP - General Family Medicine 07/09/14 documented as of this encounter
--- OUTSIDE RECORDS SUMMARY | 2024-08-15 19:04 | External Medical Summary | Summary of Care ---
Author Name Unknown Organization [facility] Address [address] [place] [address] Phone [phone] Care Team Providers Care Electrician Powerhouse Name Role Phone Ghislaine Hernandez DO Primary Care Provider [phone] Reason for Visit * Reason Onset Date Comments Follow Up 08/05/2024 Encounter Details Date Type Department Care Team ([facility] st Contact Info) Description 08/05/2024 Telephone Nephrology, Luis Carney 200 [facility] [place] [address] Krystal Pond MD [address] [place] [address] Follow Up Allergies Active Allergy Reactions Criticality Noted Date Comments Bee Venom Edema airway,Edema Other High 01/15/2014 Eye swelled shut Ciprofloxacin Other (Please comment) Medium 11/24/2016 Trouble breathing, nausea Furosemide Rash 08/02/2023 Lisinopril High 08/14/2023 angioedema Nitrofurantoin 11/08/2018 vomiting Sulfa Antibiotics Hives,Other (Please comment) 01/15/2014 Boil/Acne like sores on abdomen documented as of this encounter (statuses as of 08/07/2024) Medications Aspirin 81 MG Tablet Take 1 Tablet by mouth in the morning. 90 Tab 8 Active cholecalciferol, VIT D3, (VITAMIN D3) 1000 UNITS Tablet Take 1 Tablet by mouth in the morning. 0 Active OneTouch Ultra Blue In Vitro Strip (Glucose Blood)Indications: Type 2 diabetes mellitus with hemoglobin A1c goal of less than 7.0% ([facility]) Use to test blood sugar once [...] hemoglobin A1c goal of less than 7.0% ([facility]) Take 1 tablet by mouth once [...] as of this encounter (statuses as of 08/07/2024) Active Problems Problem Noted Date Diagnosed Date [...] as of this encounter (statuses as of 08/07/2024) Resolved Problems Problem Noted Date Diagnosed Date [...] as of this encounter (statuses as of 08/07/2024) Immunizations Name Administration Dates Next Due COVID-19 [...] 08/26/2024 9:20 AM EDT Office Visit Family [address] [place] [address] Ghislaine Hernandez, DO [address] [place] [address] 08/28/2024 2:20 PM EDT Office Visit Nephrology, [facility] 200 [facility] [place], [place] [address] Krystal Pond MD 200 [facility] [place], [place] [address] 08/29/2024 7:15 AM EDT Cardiac Studies Cardiac Studies, [facility] [address] [place] [address] 09/10/2024 1:00 PM EDT Office Visit Family Practice [facility] [address] [place] [address] Ghislaine Hernandez, DO [address] [place] [address] 09/25/2024 9:45 AM EDT Office Visit Ophthalmology, [facility] [address] [place] [address] Nitish Crooks, DO [address] [place] [address] Nurse Jarod Gonzales [address] [place] [address] Photographer Nubia Gonzales [address] [place] [address] 10/01/2024 10:00 AM EDT Imaging Radiology [facility] 1st [facility], [place] [address] [place] [address] 01/02/2025 3:00 PM EDT Office Visit [facility] Eye [address] [address] Carolina Ramirez MD 16 [place] [address] Scheduled Procedures Name Priority Associated [...] Additional history exists CKD HGB USE SMARTSET 61903 07/29/202507/29, 07/29/2024, 01/18/2024, Additional history exists CKD PHOS USE SMARTSET 17452 07/29/202507/09, 07/04/2023, 07/11/2022, Additional history exists Colonoscopy [...] this encounter Medical Devices Implanted Type Area Clock Assembler Device Identifier Shelf Expiration Date Model / Serial / Lot Shunt Tube Glaucoma Ahmed Fp7 - [id number] - [id number] Implanted:Qty: 1 on 11/17/2022 by Carolina Ramirez MD at [facility] Right: Eye [employer] [id number] 09/17/2024 TRACY / [id number] / [id number] 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 - [id number] Implanted:Qty: 1 on 11/17/2022 by Carolina Ramirez MD at OR [facility] Right: Eye [employer] 09/11/2024 O-1 / [id number] / [id number] Shunt Tube Glaucoma Ahmed Fp7 - [id number] Implanted:Qty: 1 on 12/18/2023 by Carolina Ramirez MD at OR [facility] Left: Eye [employer] [id number] 10/24/2025 [facility] / [id number] / [id number] 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 Care Teams Electrician Powerhouse Relationship Specialty Start Date End Date Ghislaine Hernandez DO 132 [facility] [place] [address] PCP - General Family Medicine 07/09/14 documented as of this encounter
--- OUTSIDE RECORDS SUMMARY | 2024-08-15 19:04 | External Medical Summary | Summary of Care ---
Author Name Unknown Organization [facility] Address [address] [place] [address] Phone [phone] Care Team Providers Care Cut Out Worker Name Role Phone Ghislaine Hernandez DO Primary Care Provider [phone] Reason for Visit * Reason Comments Nurse Documentation EKG and zio placemen t Encounter Details Date Type Department Care Team (Late st Contact Info) Description 07/29/2024 11:00 AM EDT Nurse Only Ancillary Fernandomarianela [facility] [address] [place] [address] [facility], Nurse [facility] [address] [place] [address] Nurse Documentation (EKG and zio placement) Allergies [...] 9:20 AM EDT Office Visit Family Practice [facility] [address] [place] [address] Ghislaine Hernandez DO [address] [place] [address] 08/28/2024 2:20 PM EDT Office Visit Nephrology, Luis Carney [address] [place] [address] Krystal Pond MD [address] [place] [address] 08/29/2024 7:15 AM EDT Cardiac Studies Cardiac Studies, [facility] [address] [place], [place] [address] 09/25/2024 9:45 AM EDT Office Visit Ophthalmology, [facility] [address] [place], [place] [address] Nitish Crooks, DO [address] [place] [address] Christian Nurse Jarod Nubia [address] [place] [address] Christian Commercial Sales Specialist Nubia [address] [place], [place] [address] 10/01/2024 10:00 AM EDT Imaging Radiology [facility] 1st [facility], [place] [address] [place] [address] 01/02/2025 3:00 PM EDT Office Visit [facility] [address] [place] [address] Carolina Ramirez MD 16 [place] [address] 04/07/2025 10:40 AM EST Office Visit Family Practice [facility] [address] [place] [address] Ghislaine Hernandez, DO [address] [place] [address] Scheduled Procedures Name Priority Associated Diagnoses Date/Ti [...] Additional history exists CKD HGB USE SMARTSET 68250 07/29/202507/29, 07/29/2024, 01/18/2024, Additional history exists CKD PHOS USE SMARTSET 56615 07/29/202507/09, 07/04/2023, 07/11/2022, Additional history exists Colonoscopy [...] this encounter Medical Devices Implanted Type Area Aircraft Electronics Technical Officer Device Identifier Shelf Expiration Date Model / Serial / Lot Shunt Tube Glaucoma Ahmed Fp7 - [id number] - [id number] Implanted:Qty: 1 on 11/17/2022 by Carolina Ramirez MD at [facility] Right: Eye [employer] [id number] 09/17/2024 FP7 / [id number] / [id number] 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 Care Teams Cut Out Worker Relationship Specialty Start Date End Date Ghislaine Hernandez DO [address] [place] [address] PCP - General Family Medicine 07/09/14 documented as of this encounter
--- OUTSIDE RECORDS SUMMARY | 2024-08-15 19:05 | External Medical Summary ---
Author Name Unknown Address Unknown Organization K01[facility] [address] [place] [address] Laboratory Report Ordering Provider Test Date Status JORDIN LILLY 07/29/2024 10:36:12 Final Observation Date Value Abnormality Reference (Units ) Status Phosphate 07/29/2024 10:36:12 3.7 2.5-4.8 (m g/dL) Final Performing Location [facility] - [address] [place] [address]
--- OUTSIDE RECORDS SUMMARY | 2024-08-15 19:05 | External Medical Summary | Summary of Care ---
Author Name Unknown Organization [facility] Address [address] [place] [address] Phone [phone] Care Team Providers Care Childcare Aide Name Role Phone Ghislaine Hernandez DO Primary Care Provider [phone] Reason for Visit * Reason Comments Nurse Documentation EKG and zio placemen t Encounter Details Date Type Department Care Team (Late st Contact Info) Description 07/29/2024 11:00 AM EDT Nurse Only Ancillary Fernandomarianela [facility] [address] [place] [address] [facility], Nurse [facility] [address] [place] [address] Nurse Documentation (EKG and zio placement) Allergies Active Allergy Reactions Criticality Noted Date Comments Bee Venom Edema airway,Edema Other High 01/15/2014 Eye swelled shut Ciprofloxacin Other (Please comment) Medium 11/24/2016 Trouble breathing, nausea Furosemide Rash 08/02/2023 Lisinopril High 08/14/2023 angioedema Nitrofurantoin 11/08/2018 vomiting Sulfa Antibiotics Hives,Other (Please comment) 01/15/2014 Boil/Acne like sores on abdomen documented as of this encounter (statuses as of 07/29/2024) Medications Aspirin 81 MG Tablet Take 1 [...] goal of less than 7.0% ([facility]) Take 1 tablet by mouth [...] as of this encounter (statuses as of 07/29/2024) Active Problems Problem Noted Date Diagnosed Date [...] as of this encounter (statuses as of 07/29/2024) Resolved Problems Problem Noted Date Diagnosed Date [...] as of this encounter (statuses as of 07/29/2024) Immunizations Name Administration Dates Next Due COVID-19 [...] Description 08/26/2024 9:20 AM EDT Office Visit [facility] [address] [place] [address] Ghislaine Hernandez, DO [address] [place] [address] 09/10/2024 1:00 PM EDT Office Visit [facility] [address] [place] [address] Ghislaine Hernandez, DO [address] [place] [address] 09/25/2024 9:45 AM EDT Office Visit Ophthalmology, [facility] [address] [place] [address] Nitish Crooks DO [address] [place] [address] Christian Nurse Jarod Nubia [address] [place] [address] Christian Biology Department Chair Nubia [address] [place] [address] 10/01/2024 10:00 AM EDT Imaging Radiology [facility] 1st [facility] [address] [place], [place] [address] 01/02/2025 3:00 PM EDT Office Visit [facility] 16 [place] [address] Carolina Ramirez MD 16 [place] [address] Scheduled Procedures Name Priority Associated Diagnoses Date/Ti [...] Scan 04/30/2024 04/30/2017 CKD PHOS USE SMARTSET 02705 07/03/202406/08, 07/11/2022, 06/14/2021, Additional history exists Diabetic [...] Additional history exists CKD HGB USE SMARTSET 78266 07/29/202507/29, 07/29/2024, 01/18/2024, Additional history exists Colonoscopy 12/07/2027 12/06/2017, 11/09, [...] this encounter Medical Devices Implanted Type Area Emt/Dispatcher Device Identifier Shelf Expiration Date Model / Serial / Lot Shunt Tube Glaucoma Ahmed Fp7 - [id number] - [id number] Implanted:Qty: 1 on 11/17/2022 by Carolina Ramirez MD at [facility] Right: Eye [employer] [id number] 09/17/2024 FP7 / [id number] / [id number] 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 Care Teams Childcare Aide Relationship Specialty Start Date End Date Ghislaine Hernandez DO [address] [place] [address] PCP - General Family Medicine 07/09/14 documented as of this encounter
--- OUTSIDE RECORDS SUMMARY | 2024-08-15 19:05 | External Medical Summary ---
Author Name Unknown Address Unknown Organization K01:[facility] - [address] [place] [address] Laboratory Report Ordering Provider Test Date Status JORDIN LILLY 07/29/2024 10:36:12 Final Observation Date Value Abnormality Reference (Units ) Status Magnesium 07/29/2024 10:36:12 2.1 1.5-2.6 (m g/dL) Final Performing Location [facility] - [address] [place] [address]
--- OUTSIDE RECORDS SUMMARY | 2024-08-15 19:05 | External Medical Summary ---
Author Name Unknown Address Unknown Organization K01:[facility] - [address] [facility] [place] [address] Laboratory Report Ordering Provider Test Date Status JORDIN LILLY 07/29/2024 10:36:12 Final Observation Date Value Abnormality Reference (Units ) Status TSH 07/29/2024 10:36:12 1.64 0.27-4.20 (uIU/mL) Final Performing Location [facility] - [address] [facility] [place] [address]
--- OUTSIDE RECORDS SUMMARY | 2024-08-15 19:05 | External Medical Summary ---
Author Name Unknown Address Unknown Organization K0G:[facility] [place] [facility] - [address] [place] [address] Laboratory Report Ordering Provider Test Date Status JORDIN LILLY 07/29/2024 10:36:12 Final Observation Date Value Abnormality Reference (Units ) Status WBC, Total 07/29/2024 10:36:12 7.06 4.00-10.8 0 (K/uL) Final RBC 07/29/2024 10:36:12 4.24 3.85-5.15 (M/uL) Final Hemoglobin 07/29/2024 10:36:12 12.3 12.0-15.3 (g/dL) Final HCT 07/29/2024 10:36:12 37.3 36.0-45.2 (%) Final MCV 07/29/2024 10:36:12 88.0 81.5-97.5 (fL) Final MCH 07/29/2024 10:36:12 29.0 27.0-34.0 (pg) Final MCHC 07/29/2024 10:36:12 33.0 32.0-36.0 (g/dL) Final RDW 07/29/2024 10:36:12 13.5 11.5-15.5 (%) Final Platelets 07/29/2024 10:36:12 264 140-400 (K /uL) Final MPV 07/29/2024 10:36:12 9.1 6.6-11.1 ( fL) Final Performing Location LABORATORY [facility] [place] [facility] 0 - [address] [place] [address]
--- OUTSIDE RECORDS SUMMARY | 2024-08-15 19:05 | External Medical Summary ---
Author Name Unknown Address Unknown Organization K0G:[facility] [place] [facility] - [address] [place] [address] Laboratory Report Ordering Provider Test Date Status JORDIN LILLY 07/29/2024 10:36:12 Final Observation Date Value Abnormality Reference (Units ) Status BUN 07/29/2024 10:36:12 31 Above high normal 6-20 (mg/dL) Final Creatinine 07/29/2024 10:36:12 1.1 Above high normal 0.5-1.0 (mg/dL) Final Glomerular filtration rate/1.73 sq M.predicted [Volume Rate/Area] in Serum, Plasma or Blood by Creatinine-based formula (CKD-EPI) 07/29/2024 10:36:12 54 Below low normal >=60 (mL/min) Final eGFR is calculated based on the CKD-EPI 2020 equation. Sodium 07/29/2024 10:36:12 140 135-146 (m mol/L) Final Potassium 07/29/2024 10:36:12 4.1 3.5-5.1 (m mol/L) Final Cl 07/29/2024 10:36:12 104 98-107 (mm ol/L) Final CO2 07/29/2024 10:36:12 24 22-32 (mmo l/L) Final Anion gap 07/29/2024 10:36:12 12 7-15 (mmol /L) Final Glucose 07/29/2024 10:36:12 92 70-120 (mg /dL) Final Calcium 07/29/2024 10:36:12 9.5 8.4-10.2 ( mg/dL) Final Performing Location LAB[facility]ATORY [facility] [place] [facility] 0 - [address] [place] [address]
--- OUTSIDE RECORDS SUMMARY | 2024-08-15 19:05 | External Medical Summary | Summary of Care ---
Author Name Unknown Organization [facility] Address [address] [place] [address] Phone [phone] Care Team Providers Care Counseling Program Leader Name Role Phone Ghislaine Hernandez DO Primary Care Provider [phone] Reason for Visit * Reason Onset Date Comments Appointment 07/29/2024 Encounter Details Date Type Department Care Team (Late st Contact Info) Description 07/29/2024 Telephone Nephrology, Luis [place] 200 [facility] [place] [address] Krystal Pond MD 200 [facility] [place] [address] Appointment Allergies Active Allergy Reactions Criticality Noted [...] goal of less than 7.0% ([facility]) Take 1 tablet by mouth once [...] encounter Miscellaneous Notes * Telephone Encounter - Federico Redmond OSA - 07/29/2024 9:54 AM EDT The ordering department is to schedule, and call the patient. Thank you. * Telephone Encounter - Federico Redmond OSA - 07/29/2024 9:44 AM EDT They can be scheduled under 1601 * Telephone Encounter - Jailyn Campoverde RN - 07/29/2024 9:41 AM EDT Good morning, We have a pt that needs a Zio monitor and EKG today if possible due to bradycardia while at Nephro appointment today. documented in this encounter Plan of Treatment Upcoming Encounters Date Type Department Care Team (Late st Contact Info) Description 08/26/2024 9:20 AM EDT Office Visit [facility] [address] [place] [address] Ghislaine Hernandez, DO [address] [place] [address] 09/10/2024 1:00 PM EDT Office Visit [facility] [address] [place] [address] Ghislaine Hernandez, DO [address] [place] [address] 09/25/2024 9:45 AM EDT Office Visit Ophthalmology, [facility] [address] [place], [place] [phone] Nitish Crooks DO [address] [place] [address] Christian Nurse Jarod Nubia [address] [place] [address] Christian Edge Beader Nubia [address] [place] [address] 10/01/2024 10:00 AM EDT Imaging Radiology [address] [place] [address] 01/02/2025 3:00 PM EDT Office Visit [facility] Eye [facility] 16 [place] [address] Carolina Ramirez MD 16 [place] [address] Scheduled Procedures Name Priority Associated Diagnoses Date/Ti [...] Scan 04/30/2024 04/30/2017 CKD PHOS USE SMARTSET 24578 07/03/202406/08, 07/11/2022, 06/14/2021, Additional history exists Diabetic [...] Additional history exists CKD HGB USE SMARTSET 29192 07/29/202507/29, 07/29/2024, 01/18/2024, Additional history exists Colonoscopy [...] this encounter Medical Devices Implanted Type Area Gluer And Wedger Device Identifier Shelf Expiration Date Model / Serial / Lot Shunt Tube Glaucoma Ahmed Fp7 - [id number] - [id number] Implanted:Qty: 1 on 11/17/2022 by Carolina Ramirez MD at [facility] Right: Eye [employer] [id number] 09/17/2024 FP7 / [id number] / [id number] 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 Care Teams Counseling Program Leader Relationship Specialty Start Date End Date Ghislaine Hernandez DO 132 [facility] [place] [address] PCP - General Family Medicine 07/09/14 documented as of this encounter
--- OUTSIDE RECORDS SUMMARY | 2024-08-15 19:05 | External Medical Summary ---
Author Name Unknown Address Unknown Organization [id number] [address] [place] [id number] Laboratory Report Ordering Provider Test Date Status JORDIN LILLY 07/29/2024 10:36:12 Final Observation Date Value Abnormality Reference (Units ) Status Color of Urine by Auto 07/29/2024 10:36:12 Yellow Light Yellow, Yellow, Dark Yellow Final Clarity, Urine 07/29/2024 10:36:12 Slightly Cloudy Abnormal Clear Final Glucose [Mass/volume] in Urine by Automated test strip 07/29/2024 10:36:12 Negative Negative (mg/dL) Final Bilirubin.total [Presence] in Urine by Automated test strip 07/29/2024 10:36:12 Negative Negative Final Ketones [Mass/volume] in Urine by Automated test strip 07/29/2024 10:36:12 Negative Negative (mg/dL) Final Specific gravity, Urine 07/29/2024 10:36:12 1.010 1.003-1.030 Final Hemoglobin [Presence] in Urine by Automated test strip 07/29/2024 10:36:12 Trace Abnormal Negative Final pH, Urine 07/29/2024 10:36:12 6.0 5.0-7.5 (Units) Final Protein [Mass/volume] in Urine by Automated test strip 07/29/2024 10:36:12 Trace Abnormal Negative (mg/dL) Final Urobilinogen [Mass/volume] in Urine by Automated test strip 07/29/2024 10:36:12 0.2 0.2, 1.0 (mg/dL) Final Nitrite [Presence] in Urine by Automated test strip 07/29/2024 10:36:12 Positive Abnormal Negative Final Leukocyte esterase [Presence] in Urine by Automated test strip 07/29/2024 10:36:12 Large Abnormal Negative Final RBC, Urine 07/29/2024 10:36:12 6-9 Abnormal 0-2 (/HPF) Final WBC, Urine 07/29/2024 10:36:12 30-49 Abnormal 0-2 (/HPF) Final Bacteria [#/area] in Urine sediment by Microscopy high power field 07/29/2024 10:36:12 >200 Abnormal 0-25 (/HPF) Final Epithelial cells.squamous [#/area] in Urine sediment by Microscopy high power field 07/29/2024 10:36:12 Many Abnormal None (/HPF) Final Performing Location [facility] [address] [place] [address]
--- OUTSIDE RECORDS SUMMARY | 2024-08-15 19:05 | External Medical Summary | Summary of Care ---
Author Name Unknown Organization [facility] Address [address] [place] [address] Phone [phone] Care Team Providers Care Chief Controller Station Name Role Phone Joseph Navarro DO Primary Care Provider [phone] Reason for Visit * Reason Comments Chronic Kidney Disease (CKD) Hypertension Encounter Details Date Type Department Care Team (Late st Contact Info) Description 07/29/2024 9:00 AM EDT Office Visit Nephrology, Luis Carney [address] [place] [address] Krystal Pond MD [address] [place] [address] Bradycardia*; Stage 3 chronic kidney disease, unspecified whether stage 3a or 3b CKD (HCC); HTN, goal below 130/80; Congenital ureterocele, orthotopic; White coat syndrome with diagnosis of hypertension; Uncontrolled hypertension; Suprapubic abdominal pain Allergies Active Allergy Reactions Criticality Noted [...] evening. 7.5 mL 3 04/19/19 24 Active Famotidine 20 MG Oral Tablet (Pepcid)Indicatio ns:Gastroesophage al reflux disease with esophagitis, unspecified whether hemorrhage Take 1 Tablet by mouth in the morning and 1 Tablet before bedtime. 180 Tablet 3 07/04/19 24 Active EPINEPHrine 0.3 MG/0.3ML Injection Solution [...] morning. 45 Tablet 1 07/30/19 25 Active Atenolol 25 MG Oral Tablet (Tenormin)Indicat ions:HTN, goal below 130/80 Take 1 tablet by mouth once daily 90 Tablet 1 03/04/20 24 025 Discontinued Hospital, Clinic, or Other Facility Administered Medication Ordered Dose Route Frequency Start Date End Date Status [facility] ([facility]) prefilled syringe inj 6 mgIndications:Proliferative diabetic retinopathy [...] mRNA, LNP-s, No Pre serve, 2-Dose Series (Secret Recipe) 09/03/2020,08/13/2020 Pneumococcal Conjugate Vacc, 13 Valent (Prevnar) [...] AM EDT documented as of this encounter Last Filed Vital Signs Vital Sign Reading Time Taken Comments Blood Pressure 175/66 07/29/2024 9:03 AM EDT Pulse 45 07/29/2024 9:03 AM EDT Temperature 36.6 °C (97.8 °F) 07/29/2024 8:58 AM ED T Respiratory Rate 16 07/29/2024 8:58 AM EDT Oxygen Saturation 98% 07/29/2024 8:58 AM EDT Inhaled Oxygen Concentration - - Weight 79.7 kg (175 lb 11.2 oz) 07/29/2024 8:58 AM EDT Height - - Body Mass Index 32.14 01/16/2024 3:16 PM EDT documented in this encounter Patient Instructions * Patient Instructions* Krystal Pond MD - 07/29/2024 9:26 AM EDT -for today, go to [facility] to do labs and heart tests -if you feel worse > too tired to walk or do regular activities or more short of breath or dizzyor chest pain or other worrisome symptoms go to ER to get heart checked -keep walking!! Great job -lower atenolol to 1/2 tablet for 12.5 mg daily -start hydralazine 50 mg three times daily -no change to other medicines -next time you come to kidney clinic, bring your home BP cuff along -next time you come to kidney clinic, bring a log of home BP readings at least 10-12 -my nurse will call to check in on you on or Sunday documented in this encounter Progress Notes * Krystal Pond MD - 07/29/2024 8:56 AM EDT EPHROLOGY CLINIC NOTE Nephrology, [address] [address] 07/29/2024, 8:56 AM Patient Name: Stephanie Mccauley BACKGROUND: 73 year old female presents for f/u of non protenuric CKD 3 attributed to DM & microvascular disease. Medical history includes congenital ureterocele and history [...] made the difference. Hospitalized 08/2017 and also07/2016 [facility] for pyelonephritis, in 2017 needed ureteral stent. Pt states has been told she has white coat syndrome >> has upper arm BP cuff unvalidated. Drinks at least : 80 oz water daily. Home blood pressure checks: yes-upper arm cuff non validated NSAID use: no Herbals/supplements: Vit D, B12, baby aspirin, Vit C History of stones: no Family history of CKD or ESRD: none; 4th generation diabetic Apr 2020 lost both Parents, whom she helped to care for, 1 wk apart due to COVID infection. did have a fall rigth down on both knees on pavement in [place] August 2022 > had edema after this BLE. Stopped driving d/t worse vision > follows w/ 2 ophthalmologists spring 2022 TODAY 07/29/2024: no acute interval events but concerned may have UTI today > has suprapubic pain, back pain w/ bending over; no dysuria no frequency; notes more urgency. No n/v/f/c. States metformin causes nocturia; can't have hctz d/t sulfa allergy Reports angioedema last year from lisinopril > hospitalized [facility]. Had been on ACEI for years at this time; no lasix d/t rash; has been on torse in past Has elevated BP today >> no alarm sx; has had meds; has home BP cuff not validated; HR in 40son 5 checks Last visit w/ Dr Crooks > DM no longer affecting retina; injections helping; glaucoma improved >> had severe glaucoma/optho issues Had hiatal hernia last year, presented w/ severe GERD sx. [place] >> getting out and walking more, trying to walk longer /more minutes and/or multiple times daily REVIEW OF SYSTEMS General: No fatigue, No change in weight Head: No significant headache Eyes: No recent significant change in vision. Improvement in eye issues as above Respiratory: No cough,No wheezing, No shortness of breath Cardiovascular:No chest pain, No palpitations, and No syncope Gastrointestinal: No nausea, vomiting, diarrhea No blood in stools No abdominal pain Urinary: voiding concerns as above Musculoskeletal: No muscle/joint pains, No edema No falls; occasional orthostatic light headedness Current Outpatient Medications Medication Sig Dispense Refill Aspirin 81 MG Tablet Take 1 Tablet by mouth in the morning. 90 Tab 0 cholecalciferol, VIT D3, (VITAMIN D3) 1000 UNITS Tablet Take 1 Tablet by mouth in the morning. Zoster Vac Recomb Adjuvanted 50 MCG/0.5ML Intramuscular Suspension Reconstituted (Shingrix) Inject 0.5 mL into a large muscle now and repeat dose in 60 to 180 days 1 Each 1 Rocklatan 0.02-0.005 % Ophthalmic Solution (Netarsudil-Latanoprost) Instill 1 Drop into both eyes every evening. 7.5 mL 3 Famotidine 20 MG Oral Tablet (Pepcid) Take 1 Tablet by mouth in the morning and 1 Tablet before bedtime. 180 Tablet 3 EPINEPHrine 0.3 MG/0.3ML Injection Solution Auto-injector (Autoinjector) 0.3 mg. Atorvastatin Calcium 40 MG Oral Tablet (Lipitor) Take 1 tablet by mouth once daily 90 Tablet 3 amLODIPine Besylate 10 MG Oral Tablet (Norvasc) Take 1 tablet by mouth once daily 90 Tablet 3 metFORMIN HCl ER 500 MG Oral Tablet Extended Release 24 Hour (Glucophage XR) Take 1 tablet by mouthonce daily 90 Tablet 3 Folic Acid 1 MG Oral Tablet TAKE 1 TABLET BY MOUTH IN THE MORNING 30 Tablet 11 Dorzolamide HCl-Timolol Mal 2-0.5 % Ophthalmic Solution (Cosopt Ocumeter Plus) INSTILL 1 DROP INTO BOTH EYES IN THE MORNING AND BEFORE BEDTIME. glipiZIDE 5 MG Oral Tablet (Glucotrol) Take 1/2 (one-half) tablet by mouth once daily 45 Tablet 1 hydrALAZINE HCl 25 MG Oral Tablet (Apresoline) Take 2 Tablets by mouth in the morning and 2 Tabletsat noon and 2 Tablets in the evening and 2 Tablets before bedtime. 120 Tablet 11 Atenolol 25 MG Oral Tablet (Tenormin) Take 0.5 Tablets by mouth in the morning. 45 Tablet 1 OneTouch Ultra Blue In Vitro Strip (Glucose Blood) Use to test blood sugar once daily 100 Strip 11 Mometasone Furoate 0.1 % External Ointment APPLY OINTMENT TOPICALLY TO AFFECTED AREA TWICE DAILY FOR 2 WEEKS 45 g 0 Current Facility-Administered Medications Medication Dose Route Frequency Provider Last Rate Last Admin Faricimab-svoa (Vabysmo) prefilled syringe inj 6 mg 6 mg Intravitreal PRN 6 mg at 05/28/24 1439 ROPivacaine (Naropin) inj 1.5 mg 1.5 mg Injection PRN 1.5 mg at 05/28/24 1439 Review of patient's allergies indicates: Allergen Reactions Bee Venom Edema airway and Edema Other Eye swelled shut Lisinopril angioedema Ciprofloxacin Other (Please comment) Trouble breathing, nausea Lasix [Furosemide] Rash Macrobid [Nitrofurantoin] vomiting Sulfa Antibiotics Hives and Other (Please comment) Boil/Acne like sores on abdomen PHYSICAL EXAMINATION: BP Readings from Last 6 Encounters: 07/29/24 175/66 01/16/24 124/64 12/18/23 124/55 12/12/23 154/71 09/04/23 103/41 08/14/23 148/62 Wt Readings from Last 6 Encounters: 07/29/24 79.7 kg (175 lb 11.2 oz) 01/16/24 82.1 kg (181 lb) 12/12/23 82.1 kg (181 lb) 08/27/23 82.1 kg (181 lb) 08/14/23 82.1 kg (181 lb) 08/02/23 85.3 kg (188 lb) Pulse Readings from Last 6 Encounters: 07/29/24 45 01/16/24 54 12/18/23 50 12/12/23 48 09/04/23 50 08/14/23 56 175/66 177/65 185/72 BP Site: Right Arm Right Arm Right Arm BP Position: Sitting Sitting Sitting BP Cuff Size: Regular Regular Regular Pulse: 45 46 77 NAD, oriented x 3, ambulatory w/o asst, on table w/ care; non toxic appearing Normocephalic, atraumatic, eomi nonicteric sclerae MMM Supple neck RRR w/o m/g/r; no edema CTAB w/ reasonable air mvt NT abd, +BS, soft No cyanosis or clubbing No rash No tremor, focal or global weakness; fluent speech, good hisotrian LABS: Recent Labs Units 07/29/24 1036 01/18/24 0943 08/14/23 1112 08/02/23 1044 SODIUM - [facility] mmol/L 140 140 138 141 POTASSIUM - [facility] mmol/L 4.1 4.0 4.3 5.2* CHLORIDE - [facility] mmol/L 104 103 101 105 CO2 - [facility] mmol/L 24 ESTIMATED GLOMERULAR FILTRATION RATE - [facility] mL/min 54* 50* 46* 36* BUN - [facility] mg/dL 31* 25* 36* 42* CREATININE - [facility] mg/dL 1.1* 1.2* 1.3* 1.5* Latest Ref Rn 06/23/2021 12/21/2021 01/10/2022 04/13/2022 04/28/2022 07/11/2022 01/15/2023 NEPH-FLOW Cr 0.5 - 1.0 mg/dL 1.4 (H) 1.3 (H) 1.3 (H) 1.4 (H) 1.3 (H) 1.4 (H) eGFR >=60 mL/min 41 (L) 45 (L) 45 (L) 40 (L) 46 (L) 42 (L) eGFR >60 Latest Ref Rn 03/20/2023 03/30/2023 04/06/2023 07/04/2023 08/02/2023 NEPH-FLOW Cr 0.5 - 1.0 mg/dL 1.1 (H) 1.6 (H) 1.3 (H) 1.8 (H) 1.5 (H) eGFR >=60 mL/min 52 (L) 35 (L) 45 (L) 30 (L) 36 (L) eGFR >60 Recent Labs Units 07/29/24 1036 01/18/24 0943 08/14/23 1112 04/06/23 1030 03/30/23 1146 HGB g/dL 12.3 11.8* 10.9* 10.3* 9.9* FERRITIN - [facility] ng/mL -- -- -- -- 138 TRANSFERRIN SATURATION PERCENT - [facility] % -- -- -- -- 19 Recent Labs Units 07/29/24 1036 01/18/24 0943 08/14/23 1112 08/02/23 1044 07/04/23 1502 03/20/23 1228 01/15/23 1515 CALCIUM - [facility] mg/dL 9.5 9.3 9.1 9.9 9.3 < > 9.9 PHOSPHORUS - [facility] mg/dL -- -- -- -- 4.3 -- -- PTH - [facility] pg/mL -- -- -- -- -- -- 58 < > = values in this interval not displayed. Recent Labs Units 01/18/24 0943 07/04/23 1502 01/15/23 1515 HEMOGLOBIN A1C - [facility] % 6.9* 7.3* 6.7* Recent Labs Units 08/02/23 1049 07/06/23 0930 ALBUMIN/CREATININE RATIO, HIDE mg/g Creat -- Uninterpretable Albumin/Creatinine ratio due to very low albumin and creatinine values. ALBUMIN / CREATININE RATIO, URINE - [facility] mg/g Creat <21 -- Recent Labs Units 07/29/24 1036 01/16/24 1600 01/16/24 1554 08/16/23 1045 08/02/23 1049 CLARITY, URINE - [facility] Slightly Cloudy* Slightly Cloudy* Clear Clear Clear GLUCOSE, URINE - [facility] mg/dL Negative Negative Negative 500* Negative BILIRUBIN, URINE - [facility] Negative Negative Negative Negative Negative KETONE, URINE - [facility] mg/dL Negative Negative Negative Negative Negative SPECIFIC GRAVITY, URINE - [facility] 1.010 1.010 1.008 1.010 1.010 BLOOD, URINE - [facility] Trace* Small* Trace* Trace* Negative PH, URINE - [facility] Units 6.0 5.5 6.0 6.0 5.5 PROTEIN, URINE - [facility] mg/dL Trace* Negative Negative Negative Negative UROBILINOGEN, URINE - [facility] mg/dL 0.2 0.2 Normal 0.2 0.2 NITRITE, URINE - [facility] Positive* Negative Negative Negative Positive* ESTERASE, URINE - [facility] Large* Small* Moderate* Negative Small* BACTERIA, URINE - [facility] /HPF >200* -- 0-25 0-25 >200* WBC, URINE - [facility] /HPF 30-49* -- 20-29* 0-2 50+* RBC, URINE - [facility] /HPF 6-9* -- 0-2 0-2 0-2 TTE The qualitative LV ejection fraction is 55-59% (normal). The left ventricular wall motion is normal. The left ventricular diastolic function is normal. Trivial tricuspid regurgitation. There is no evidence of pulmonary hypertension. No pericardial effusion is noted. ASSESSMENT AND PLAN: Bradycardia (Primary) - BASIC METABOLIC PANEL - NEPHROLOGY FOLLOW UP APPT (DEPARTMENT USE ONLY) - EXTERNAL EKG 2 TO 7 DAYS - EKG - MAGNESIUM - PHOSPHORUS - TSH WITH FREE T4 IF INDICATED; Future; Expected date: 07/29/2024 Stage 3 chronic kidney disease, unspecified whether stage 3a or 3b CKD (HCC) HTN, goal below 130/80 - Atenolol 25 MG Oral Tablet (Tenormin); Take 0.5 Tablets by mouth in the morning. Congenital ureterocele, orthotopic White coat syndrome with diagnosis of hypertension Uncontrolled hypertension - NEPHROLOGY FOLLOW UP APPT (DEPARTMENT USE ONLY) Suprapubic abdominal pain - URINALYSIS WITH MICROSCOPIC EXAM - CULTURE, URINE, QUANTITATIVE - CBC WITH WBC DIFFERENTIAL Other orders - hydrALAZINE HCl 25 MG Oral Tablet (Apresoline); Take 2 Tablets by mouth in the morning and 2 Tablets at noon and 2 Tablets in the evening and 2 Tablets before bedtime. HR in 40s today in clinic and on several recetn home readings; pt states some readings in 30s at times; no sx; not affecting exercise routine or ADLs. BP uncontrolled at home on non validated cuff and especially here. Mulitple BP intolerances/allergies noted. -ECG, zio -ER alarm sx reviewed -eval renal function/lytes/thyroid -lowered atenolol/start hydralazine -lower threshold for amb BP study once low HR stabilized -validate home cuff, sMBP log >>staff mssg sent for neph nurse to check back on pt late this week; will update PCP as well CKD 3 neither A/B w/ labile renla function at better end of range in octboer>> stat labs showrenla function stable -rubi contraindicated; ? Trial aRB -no SGLT2i d/t frequent UTI Not toxic but mild sx > suprapub pain and frequency like prev UTIs > r/o UTI Patient Instructions -for today, go to [facility] to do labs and heart tests -if you feel worse > too tired to walk or do regular activities or more short of breath or dizzyor chest pain or other worrisome symptoms go to ER to get heart checked -keep walking!! Great job -lower atenolol to 1/2 tablet for 12.5 mg daily -start hydralazine 50 mg three times daily -no change to other medicines -next time you come to kidney clinic, bring your home BP cuff along -next time you come to kidney clinic, bring a log of home BP readings at least 10-12 -my nurse will call to check in on you on or Sunday I spent a total of Greater than 55 mins (exact time 60 mins) on the date of service in preparation,delivery, and documentation of the care provided to Stephanie Mccauley excluding any time spent in theperformance of separately billed services or time spent by another provider/QHP. Krystal Pond MD Nephrology, [address] [place] [address] CC: REF: JOSEPH NAVARRO [address] [place] [address] (office) [phone] (fax) PCP: JOSEPH NAVARRO [address] [place] [address] [phone] This chart was completed in part utilizing [employer] Speech Voice Recognition Software. Randomword insertions, pronoun errors, and incomplete sentences are an occasional consequence of this system due to software limitations, and ambient noise. Any questions or concerns about the content, text, or information contained within the body of this dictation should be directly addressed to the provider for clarification. documented in this encounter Procedure Notes * Jamaal Merino DO - 07/29/2024 9:57 AM EDTAssociated Order(s): EKG REASON FOR STUDY: HTN, BRADYCARDIA CONCLUSIONS: Marked sinus bradycardia Cannot rule out Anterior infarct , age undetermined Abnormal ECG When compared with ECG of 17-Jul-2014 09:34, Vent. rate has decreased by 31 bpm Questionable change in The axis Ventricular Rate: 45 Atrial Rate: 45 RI Interval: 196 QRS Duration: 96 QT/QTc: 466/403 ms P-R-T [place]: 51 : 3 : 41 degrees documented in this encounter Nursing Notes * Yazmin Car LPN - 07/29/2024 8:57 AM EDT Follow up visit to Nephrology. No recent falls. No new illness or hospitalization. Reports intermittent aching left flank pain, #5 Increased B/P on intake. Patient reports white coat syndrome with visits. documented in this encounter Miscellaneous Notes * Result Encounter Note - Krystal Pond MD - 07/29/2024 3:00 PM EDT Kidney labs stable to slightly improved Urine specimen has lots of skin cells in it and will not be useful to determine whether there's an infection or not. Multiple labs pending as is ECG; will be in touch w/ results. Copying Dr Navarro after OV today with uncontrolled HTN, bradycardia. documented in this encounter Plan of Treatment Upcoming Encounters Date Type Department Care Team (Late st Contact Info) Description 08/26/2024 9:20 AM EDT Office Visit [facility] [address] [place] [address] Joseph Navarro, DO [address] [place] [address] 09/10/2024 1:00 PM EDT Office Visit [facility] [address] [place] [address] Joseph Navarro, DO [address] [place] [address] 09/25/2024 9:45 AM EDT Office Visit Ophthalmology, [facility] [address] [place] [phone] Nitish Crooks, DO [address] [place] [address] Nurse Jarod Gonzales Nubia [address] [place], [place] [address] Photographer Fernando Gonzaless [address] [place], [place] [address] 10/01/2024 10:00 AM EDT Imaging Radiology [facility] [address] [place] [phone] 01/02/2025 3:00 PM EDT Office Visit [facility] [address] [place] [address] Carolina Ramirez MD [address] [place] [address] Pending Results Name Type Priority Associated Diagnoses Date /Time CULTURE, URINE, QUANTITATIVE Lab STAT Suprapubic abdominal pain 07/29/2024 10:36 AM EDT Scheduled Orders Name Type Priority Associated Diagnoses Orde r Schedule EXTERNAL EKG 2 TO 7 DAYS Holter STAT Bradycardia Ordered: 07/29/2024 Scheduled Procedures Name Priority Associated Diagnoses Date/Ti [...] Scan 04/30/2024 04/30/2017 CKD PHOS USE SMARTSET 84451 07/03/202407/09, 07/04/2023, 07/11/2022, Additional history exists Diabetic Foot Exam 07/03/2024 [...] Additional history exists CKD HGB USE SMARTSET 04242 07/29/202507/29, 07/29/2024, 01/18/2024, Additional history exists Colonoscopy [...] this encounter Medical Devices Implanted Type Area Lead Engineer Device Identifier Shelf Expiration Date Model / Serial / Lot Shunt Tube Glaucoma Ahmed Fp7 - [id number] - [id number] Implanted:Qty: 1 on 11/17/2022 by Carolina Ramirez MD at [facility] Right: Eye [employer] [id number] 09/17/2024 FP7 / [id number] / [id number] Graft [place] Cornea Split - [id number] Implanted:Qty: 1 on 11/17/2022 by Carolina Ramirez MD at [facility] Right: Eye [employer] 09/11/2024 HCO-HH1 / [id number] / [id number] Shunt Tube Glaucoma Ahmed Fp7 - [id number] Implanted:Qty: 1 on 12/18/2023 by Carolina Ramirez MD at [facility] Left: Eye [employer] [id number] 10/24/2025 FP7 / [id number] / [id number] Graft [place] Cornea Split - [id number] Implanted:Qty: 1 on 12/18/2023 by Carolina Ramirez MD at [facility] Left: Eye [employer] 10/21/2025 HCO-HH1 / [id number] / [id number] documented as of this encounter Procedures Procedure Name Priority Date/Time Associated Diagnosis Comments DIFFERENTIAL, AUTOMATED STAT 07/29/2024 10:36 AM EDT Suprapubic abdominal pain BASIC METABOLIC PANEL STAT 07/29/2024 10:36 AM EDT Bradycardia URINALYSIS WITH MICROSCOPIC EXAM STAT 07/29/2024 10:36 AM EDT Suprapubic abdominal pain CBC STAT 07/29/2024 10:36 AM EDT Suprapubic abdominal pain PHOSPHORUS STAT 07/29/2024 10:36 AM EDT Bradycardia CBC STAT 07/29/2024 10:36 AM EDT Suprapubic abdominal pain MAGNESIUM STAT 07/29/2024 10:36 AM EDT Bradycardia RI ECG ROUTINE ECG W/LEAST 12 LDS I&R ONLY STAT 07/29/2024 9:57 AM EDT Bradycardia documented in this encounter Results * DIFFERENTIAL, AUTOMATED (07/29/2024 10:36 AM EDT) Pathologist [facility] WBC 7.06 4.00 - 10.80 K/uL 07/29/2024 10:44 AM EDT LABORATORY [place] 57-10 Neutrophils % 66.1 40.0 - 75.0 % 07/29/2024 10:44 AM EDT LAB[facility]ORY [place] 57-10 Lymphocytes % 22.8 18.0 - 42.0 % 07/29/2024 10:44 AM EDT LAB[facility]ORY [place] 57-10 Monocytes % 7.5 1.0 - 11.0 % 07/29/2024 10:44 AM EDT LAB[facility]ORY [place] 57-10 Eosinophils % 3.0 0.0 - 6.0 % 07/29/2024 10:44 AM EDT LAB[facility]ORY [place] 57-10 Basophils % 0.6 0.0 - 2.0 % 07/29/2024 10:44 AM EDT LAB[facility]ORY [place] 57-10 Absolute Neutrophils 4.67 1.80 - 7.70 K/uL 07/29/2024 10:44 AM EDT LAB[facility]ORY [place] 57-10 Absolute Lymphocytes 1.61 1.00 - 4.80 K/ul 07/29/2024 10:44 AM EDT LAB[facility]ORY [place] 57-10 Absolute Monocytes 0.53 0.00 - 1.10 K/uL 07/29/2024 10:44 AM EDT LAB[facility]ORY [place] 57-10 Absolute Eosinophils 0.21 0.00 - 0.70 K/uL 07/29/2024 10:44 AM EDT LAB[facility]ORY [place] 57-10 Absolute Basophils 0.04 0.00 - 0.20 K/uL 07/29/2024 10:44 AM EDT LAB[facility]ORY [place] 57-10 Blood Venous blood specimen / Unknown Venipuncture / Unknown 07/29/2024 10:36 AM EDT 07/29/2024 10:37 AM EDT Krystal Pond MD LAB BLOOD ORDERABLES Munira l Result LAB[facility]ATORY [facility] [place] [facility] [place] [address] * CBC (07/29/2024 10:36 AM EDT) WBC 7.06 4.00 - 10.80 K/uL 07/29/2024 10:44 AM EDT LABORATORY [facility] [place] 57-10 RBC 4.24 3.85 - 5.15 M/uL 07/29/2024 10:44 AM EDT LABORATORY [facility] [place] 57-10 HGB 12.3 12.0 - 15.3 g/dL 07/29/2024 10:44 AM EDT LAB[facility]ATORY [facility] [place] 57-10 HCT 37.3 36.0 - 45.2 % 07/29/2024 10:44 AM EDT LAB[facility]ATORY [facility] [place] 57-10 MCV 88.0 81.5 - 97.5 fL 07/29/2024 10:44 AM EDT LABORATORY [facility] [place] 57-10 MCH 29.0 27.0 - 34.0 pg 07/29/2024 10:44 AM EDT LABORATORY [facility] [place] 57-10 MCHC 33.0 32.0 - 36.0 g/dL 07/29/2024 10:44 AM EDT LABORATORY [facility] [place] 57-10 RDW 13.5 11.5 - 15.5 % 07/29/2024 10:44 AM EDT LABORATORY [facility] [place] 57-10 PLT 264 140 - 400 K/uL 07/29/2024 10:44 AM EDT LABORATORY [facility] [place] 57-10 MPV 9.1 6.6 - 11.1 fL 07/29/2024 10:44 AM EDT LAB[facility]ATORY [facility] [place] 57-10 Blood Venous blood specimen / Unknown Venipuncture / Unknown 07/29/2024 10:36 AM EDT 07/29/2024 10:37 AM EDT Krystal Pond MD LAB BLOOD ORDERABLES Munira l Result LABORATORY [facility] [place] [address] [place] [address] * TSH WITH FREE T4 IF INDICATED (07/29/2024 10:36 AM EDT) TSH 1.64 0.27 - 4.20 uIU/mL 07/29/2024 8:16 PM EDT LAB[facility]ORY [facility] Blood Venous blood specimen / Unknown Venipuncture / Unknown 07/29/2024 10:36 AM EDT 07/29/2024 10:37 AM EDT Krystal Pond MD LAB BLOOD ORDERABLES Munira l Result Performing Organization Address City/[facility]/ZIP Co de Phone Number [facility] [place] [address] [place] [address] * PHOSPHORUS (07/29/2024 10:36 AM EDT) Phosphorus 3.7 2.5 - 4.8 mg/dL 07/29/2024 7:41 PM EDT [facility] Blood Venous blood specimen / Unknown Venipuncture / Unknown 07/29/2024 10:36 AM EDT 07/29/2024 10:37 AM EDT Krystal Pond MD LAB BLOOD ORDERABLES Munira l Result [facility] [place] [address] [place] [address] * MAGNESIUM (07/29/2024 10:36 AM EDT) Magnesium 2.1 1.5 - 2.6 mg/dL 07/29/2024 7:41 PM EDT [facility] Blood Venous blood specimen / Unknown Venipuncture / Unknown 07/29/2024 10:36 AM EDT 07/29/2024 10:37 AM EDT Krystal Pond MD LAB BLOOD ORDERABLES Munira caro Result [facility] [place] [address] [place] [address] * (ABNORMAL) URINALYSIS WITH MICROSCOPIC EXAM (07/29/2024 10:36 AM EDT) Color, Urine Yellow Light Yellow, Yellow, Dark Yellow 07/29/2024 10:52 AM EDT LAB[facility]ORY [place] 57-10 Clarity, Urine Slightly Cloudy(A) Clear 07/29/2024 10:52 AM EDT LAB[facility]ORY [place] 57-10 Glucose, Urine Negative Negative mg/dL 07/29/2024 10:52 AM EDT LAB[facility]ORY [place] 57-10 Bilirubin, Urine Negative Negative 07/29/2024 10:52 AM EDT LAB[facility]ORY [place] 57-10 Ketone, Urine Negative Negative mg/dL 07/29/2024 10:52 AM EDT LAB[facility] [place] 57-10 Specific [place], Urine 1.010 1.003 - 1.030 07/29/2024 10:52 AM EDT LAB[facility]ORY [place] 57-10 Blood, Urine Trace(A) Negative 07/29/2024 10:52 AM EDT [facility] [place] 57-10 pH, Urine 6.0 5.0 - 7.5 Units 07/29/2024 10:52 AM EDT [facility] [place] 57-10 Protein, Urine Trace(A) Negative mg/dL 07/29/2024 10:52 AM EDT [facility] [place] 57-10 Urobilinogen, Urine 0.2 0.2, 1.0 mg/dL 07/29/2024 10:52 AM EDT [facility] [place] 57-10 Nitrite, Urine Positive(A) Negative 10:52 AM EDT [facility] [place] 57-10 Esterase, Urine Large(A) Negative 07/29/2024 10:52 AM EDT [facility] [place] 57-10 RBC, Urine 6-9(A) 0 - 2 /HPF 07/29/2024 10:52 AM EDT LAB[facility] [place] 57-10 WBC, Urine 30-49(A) 0 - 2 /HPF 07/29/2024 10:52 AM EDT [facility] [place] 5710 Bacteria, Urine >200(A) 0 - 25 /HPF 07/29/2024 10:52 AM EDT [facility] [place] [facility] Squamous Epithelial Cells, Urine Many(A) None /HPF 07/29/2024 10:52 AM EDT [facility] [place] [address] Urine Urine specimen obtained by clean catch procedure / Unknown Non-blood Collection / Unknown 07/29/2024 10:36 AM EDT 07/29/2024 10:37 AM EDT us Krystal Pond MD LAB URINE ORDERABLES Munira l Result LABORATORY [address] [address] * (ABNORMAL) BASIC METABOLIC PANEL (07/29/2024 10:36 AM EDT) BUN 31(H) 6 - 20 mg/dL 07/29/2024 11:03 AM EDT [facility] [place] [address] CREATININE 1.1(H) 0.5 - 1.0 mg/dL 07/29/2024 11:03 AM EDT [facility] [place] [address] EGFR 54(L) >=60 mL/min 07/29/2024 11:03 AM EDT [facility] [place] [address] Comment:eGFR is calculated b ased on the CKD-EPI 2020 equation. SODIUM 140 135 - 146 mmol/L 07/29/2024 11:03 AM EDT LAB[facility] [place] 57-10 POTASSIUM 4.1 3.5 - 5.1 mmol/L 07/29/2024 11:03 AM EDT LAB[facility] [place] [address] CHLORIDE 104 98 - 107 mmol/L 07/29/2024 11:03 AM EDT [facility] [place] [address] CO2 24 22 - 32 mmol/L 07/29/2024 11:03 AM EDT [facility] [place] 57-10 ANION GAP 12 7 - 15 mmol/L 07/29/2024 11:03 AM EDT LAB[facility]ORY [place] 57-10 GLUCOSE 92 70 - 120 mg/dL 07/29/2024 11:03 AM EDT [facility]10 CALCIUM 9.5 8.4 - 10.2 mg/dL 07/29/2024 11:03 AM EDT [facility] 57-10 Blood Venous blood specimen / Unknown Venipuncture / Unknown 07/29/2024 10:36 AM EDT 07/29/2024 10:37 AM EDT Krystal Pond MD LAB BLOOD ORDERABLES Munira l Result Performing Organization Address [facility] Co de Phone Number [facility] [address] [place] [phone] * EKG (07/29/2024 9:57 AM EDT) 07/29/2024 9:57 AM EDT Narrative Procedure Note Jamaal Merino, - 07/29/2024 9:57 AM EDT REASON FOR STUDY: HTN, BRADYCARDIA CONCLUSIONS: Marked sinus bradycardia Cannot rule out Anterior infarct , age undetermined Abnormal ECG When compared with ECG of 17-Jul-2014 09:34, Vent. rate has decreased by 31 bpm Questionable change in The axis Ventricular Rate: 45 Atrial Rate: 45 RI Interval: 196 QRS Duration: 96 QT/QTc: 466/403 ms P-R-T [place]: 51 : 3 : 41 degrees us Krystal Pond MD EKG Final Res ult Performing Organization Address City/[facility]/ZIP Co de Phone Number [facility] documented in this encounter Visit Diagnoses Diagnosis Bradycardia- Primary Other specified cardiac dysrhythmias Stage 3 chronic kidney disease, unspecified whether stage 3a or 3b CKD (HCC) HTN, goal below 130/80 Unspecified essential hypertension Congenital ureterocele, orthotopic Congenital ureterocele White coat syndrome with diagnosis of hypertension Uncontrolled hypertension Unspecified essential hypertension Suprapubic abdominal pain Abdominal pain, other specified site Screening mammogram for breast cancer documented in [...] and were consensually agreed upon. Care Teams Chief Controller Station Relationship Specialty Start Date End Date Joseph Navarro DO [address] [place] [address] PCP - General Family Medicine 07/09/14 documented as of this encounter
--- OUTSIDE RECORDS SUMMARY | 2024-08-15 19:05 | External Medical Summary ---
Author Name Unknown Address Unknown Organization [id number]:[facility]AT[facility] - [address] [facility] [address] Laboratory Report Ordering Provider Test Date Status JORDIN LILLY 07/29/2024 10:36:12 Final <10,000 colonies/ml mixed no rmal bessy Observation Date Value Abnormality Reference (Units ) Status Bacteria identified in Specimen by Culture 07/29/2024 10:36:12 [id number]^KLEBSIELL A PNEUMONIAE Abnormal Final >100,000 colonies/mL Klebsie lla pneumoniae Performing Location LAB[facility]ATORY [facility] [place] - [address] [facility] [address] Ordering Provider Test Date Status JORDIN LILLY 07/29/2024 10:36:12 Final Observation Date Value Abnormality Reference (Units ) Status Ampicillin + Sulbactam 07/29/2024 10:36:12 4 Susceptible Final Cefazolin 07/29/2024 10:36:12 <=4 Susceptible Final Cefepime susceptibility 07/29/2024 10:36:12 <=1 Susceptible Final Ceftriaxone suceptibility 07/29/2024 10:36:12 <=1 Susceptible Final Ciprofloxacin 07/29/2024 10:36:12 <=0.25 Susceptible Final Due to serious side effects, the FDA has advised against using Ciprofloxacin to treat uncomplicated UTIs and respiratory tract infections unless there are no alternative treatment options. Gentamicin susceptibility 07/29/2024 10:36:12 <=1 Susc eptible Final Nitrofurantoin susceptibility 07/29/2024 10:36:12 64 Intermediate Final Piperacillin + Tazobactamsusceptibility 07/29/2024 10:36:12 <=4 Susceptible Final TMP-SMZ susceptibility 07/29/2024 10:36:12 <=20 Suscept ible Final Test: Culture, Urine, Quanti tative
Specimen Source: Urine, Clean Catch
Specimen Type: Urine
Specimen Date: 07/29/2024 1036
Result Date: 07/31/2024 0753
Result Status: Final result
Abnormal: Yes
Resulting Lab: LAB[facility]ORY [facility]
[address]
[facility] [address]

CULTURE

>100,000 colonies/mL Klebsiella pneumoniae (Abnormal)

<10,000 colonies/ml mixed normal bessy

SUSCEPTIBILITY

Klebsiella
pneumoniae
METHOD MICROBROTH DILUTIONS

AMPICILLIN/SULBACTAM 4 Susceptible
CEFAZOLIN <=4 Susceptible
CEFEPIME <=1 Susceptible
CEFTRIAXONE <=1 Susceptible
CIPROFLOXACIN <=0.25 Susceptible
[1]
GENTAMICIN <=1 Susceptible
NITROFURANTOIN 64 Intermediate
PIPERACILLIN TAZOBACTAM <=4 Susceptible
TRIMETH/SULFAMETHOXAZOLE <=20 Susceptible

[1] Due to serious side effects, the FDA has advised against using
Ciprofloxacin to treat uncomplicated UTIs and respiratory tract infections
unless there are no alternative treatment options.

null Performing Location LAB[facility]ATORY [facility] - [address] [facility] [address]
--- OUTSIDE RECORDS SUMMARY | 2024-08-15 19:05 | External Medical Summary | Summary of Care ---
Author Name Unknown Organization [facility] Address [address] [place] [address] Phone [phone] Care Team Providers Care Food Services Director Name Role Phone Ghislaine Hernandez DO Primary Care Provider [phone] Reason for Referral * Precert (Diagnostic Medical) (Within 10 days (routine)) - Authorized Specialty Diagnoses / Procedures Referred By Contac t Referred To Contact Cardiac Studies Diagnoses Bradycardia Uncontrolled hypertension History of OH (myocardial infarction) Procedures ECHO, COMPLETE (2D), TRANS-THORACIC Krystal Pond MD [address] [facility] [place] [address] Phone: tel: fax: Referral ID Status Reason Start Date Expiration Date V isits Requested Visits Authorized [id number] Authorized Precert 07/30/2024 999 999 Reason for Visit * Reason Onset Date Comments EKG 07/29/2024 Encounter Details Date Type Department Care Team (Late st Contact Info) Description 07/29/2024 Telephone Nephrology, Luis [address] [place] [address] Krystal Pond MD [address] [facility] [place] [address] EKG Allergies Active Allergy Reactions Criticality Noted Date Comments Bee Venom Edema airway,Edema Other High 01/15/2014 Eye swelled shut Ciprofloxacin Other (Please comment) Medium 11/24/2016 Trouble breathing, nausea Furosemide Rash 08/02/2023 Lisinopril High 08/14/2023 angioedema Nitrofurantoin 11/08/2018 vomiting Sulfa Antibiotics Hives,Other (Please comment) 01/15/2014 Boil/Acne like sores on abdomen documented as of this encounter (statuses as of 07/30/2024) Medications Aspirin 81 MG Tablet Take 1 Tablet by mouth in the morning. 90 Tab 8 Active cholecalciferol, VIT D3, (VITAMIN D3) 1000 UNITS Tablet Take 1 Tablet by mouth in the morning. 0 Active OneTouch Ultra Blue In Vitro Strip (Glucose Blood)Indications: Type 2 diabetes mellitus with hemoglobin A1c goal of less than 7.0% ([facility]) Use to test blood sugar [...] as of this encounter (statuses as of 07/30/2024) Active Problems Problem Noted Date Diagnosed Date [...] as of this encounter (statuses as of 07/30/2024) Resolved Problems Problem Noted Date Diagnosed Date [...] as of this encounter (statuses as of 07/30/2024) Immunizations Name Administration Dates Next Due COVID-19 [...] 11/16/2022 Does the household have a re lar source of income? (Household - for ages [...] 18 years and over) Not on file 3 Are you (or your family) benito eless [...] Telephone Encounter - Jailyn Campoverde RN - 07/30/2024 9:19 AM EDT TE with pt. Cardiology has reached out to schedule her TTE.. Pt will cloth picker new RX for bp meds today. Discussed the importance of checking blood pressures and pulse . She is keeping records. * Telephone Encounter - Krystal Pond MD - 07/29/2024 3:08 PM EDT ECG reviewed; sinus bradycardia confirmed; new (compared to 10 years back) OH Pt had no sx at [facility]; I did review alarm sx w/ her. Multiple readings on SMBP past 3 days w/ HR in 40s, again w/ no sx. Acute OH unlikely; no e/o HF on exam BB dose lowered; eyedrop use noted but would not change use Neph nurse pls update pt on ECG results and the following: -Zio in place; will get TTE (order in) -ER w/ new/worrisome sx such as fatigue /inability to do ADLs, to walk 1/2 of her regular distance,n/v/inability to tolerate po, chest pain, sob, new focal numbness/weakness, other worrisome sx -may or may not need cardiology eval close in depending on Zio, TTE results but at very least will f/u heart issues w/ PCP (already scheduled 08/26) Dr Mary CALL * Telephone Encounter - Mari Law CMA - 07/29/2024 11:29 AM EDT EKG performed and Zio monitor applied in clinic today. Pt tolerated well, no symptoms or complaints. Please see EKG reports in chart documented in this encounter Plan of Treatment Upcoming Encounters Date Type Department Care Team (Late st Contact Info) Description 08/26/2024 9:20 AM EDT Office Visit [facility] [address] [place] [address] Ghislaine Hernandez, DO [address] [place] [address] 09/10/2024 1:00 PM EDT Office Visit [facility] [address] [place] [address] Ghislaine Hernandez, DO [address] [place] [address] 09/25/2024 9:45 AM EDT Office Visit Ophthalmology, [facility] [address] [place] [phone] Nitish Crooks, DO [address] [place] [address] Nurse Jarod Gonzales Nubia [address] [place] [address] Photographer Nubia Gonzales [address] [place] [address] 10/01/2024 10:00 AM EDT Imaging Radiology [facility] 1st [facility] [address] [place] [phone] 01/02/2025 3:00 PM EDT Office Visit [facility] [address] [place] [address] Carolina Ramirez MD [address] [place] [address] Scheduled Orders Name Type Priority Associated Diagnoses Orde r Schedule ECHO, COMPLETE (2D), TRANS-THORACIC Echocardiology Routine Bradycardia Uncontrolled hypertension History of OH (myocardial infarction) Expected: 07/30/2024, Expires: 08/28/2026 Scheduled Procedures Name Priority Associated Diagnoses Date/Ti [...] Additional history exists CKD HGB USE SMARTSET 34669 07/29/202507/29, 07/29/2024, 01/18/2024, Additional history exists CKD PHOS USE SMARTSET 74630 07/29/202507/09, 07/04/2023, 07/11/2022, Additional history exists Colonoscopy [...] this encounter Medical Devices Implanted Type Area Ultimate Hoops Scoreboard Operator Device Identifier Shelf Expiration Date Model / Serial / Lot Shunt Tube Glaucoma Ahmed Fp7 - [id number] - [id number] Implanted:Qty: 1 on 11/17/2022 by Carolina Ramirez MD at [facility] Right: Eye [employer] [id number] 09/17/2024 FP7 / [id number] / [id number] Graft [place] Cornea Split - [id number] Implanted:Qty: 1 on 11/17/2022 by Carolina Ramirez MD at [facility] Right: Eye [employer] 09/11/2024 O-1 / [id number] / [id number] Shunt Tube Glaucoma Ahmed Fp7 - [id number] Implanted:Qty: 1 on 12/18/2023 by Carolina Ramirez MD at [facility] Left: Eye [employer] [id number] 10/24/2025 FP7 / [id number] / [id number] Graft [place] Cornea Split - [id number] Implanted:Qty: 1 on 12/18/2023 by Carolina Ramirez MD at [facility] Left: Eye [employer] 10/21/2025 HCO-1 / [id number] / [id number] documented as of this encounter Visit Diagnoses Diagnosis Bradycardia- Primary Other specified cardiac dysrhythmias Uncontrolled hypertension Unspecified essential hypertension History of OH (myocardial infarction) Old myocardial infarction Screening mammogram for breast cancer documented in [...] and were consensually agreed upon. Care Teams Food Services Director Relationship Specialty Start Date End Date Ghislaine Hernandez DO [address] [facility] [place] [address] PCP - General Family Medicine 07/09/14 documented as of this encounter
--- OUTSIDE RECORDS SUMMARY | 2024-08-15 19:05 | External Medical Summary ---
Author Name Unknown Address Unknown Organization K0G:LABORATORY [place] 57-10 - [address] [place] [address] Laboratory Report Ordering Provider Test Date Status JORDIN LILLY 07/29/2024 10:36:12 Final Observation Date Value Abnormality Reference (Units ) Status SYNC LEUKOCYTES IN BLOOD BY AUTOMATED COUNT 07/29/2024 10:36:12 7.06 4.00-10.80 (K/uL) Final Segs 07/29/2024 10:36:12 66.1 40.0-75.0 (%) Final Lymphs % 07/29/2024 10:36:12 22.8 18.0-42.0 (%) Final Monos 07/29/2024 10:36:12 7.5 1.0-11.0 (%) Final Eosinophils 07/29/2024 10:36:12 3.0 0.0-6.0 (%) Final Basos 07/29/2024 10:36:12 0.6 0.0-2.0 (%) Final Absolute Segs 07/29/2024 10:36:12 4.67 1.80-7.70 (K/uL) Final Lymphs, absolute 07/29/2024 10:36:12 1.61 1.00-4.80 (K/ul) Final Monos, Abs 07/29/2024 10:36:12 0.53 0.00-1.10 (K/uL) Final Eos, Abs 07/29/2024 10:36:12 0.21 0.00-0.70 (K/uL) Final Basos, Abs 07/29/2024 10:36:12 0.04 0.00-0.20 (K/uL) Final Performing Location [facility] [place] 57-1 0 - [address] [place] [address]
--- OUTSIDE RECORDS SUMMARY | 2024-08-15 19:05 | External Medical Summary | Summary of Care ---
Author Name Unknown Organization [facility] Address [address] [place] [address] Phone [phone] Care Team Providers Care Goodyear Stitcher Name Role Phone Ghislaine Hernandez DO Primary Care Provider [phone] Reason for Visit * Reason Comments Outpatient Testing Encounter Details Date Type Department Care Team (Late st Contact Info) Description 07/29/2024 10:20 AM EDT Laboratory Laboratory, [facility] [address] [place] [address] [facility] [address] [place] [address] Bradycardia Allergies Active Allergy Reactions Criticality Noted Date [...] A1c goal of less than 7.0% ([facility]) Take 1 tablet by mouth once daily [...] mRNA, LNP-s, No Pre serve, 2-Dose Series ([employer]) 09/03/2020,08/13/2020 Pneumococcal Conjugate Vacc, 13 Valent [...] AM EDT documented as of this encounter Plan of Treatment Upcoming Encounters Date Type Department Care Team (Late st Contact Info) Description 09/02/2024 1:20 PM EDT Office Visit Family Practice [facility] [address] [place] [address] Ghislaine Hernandez, DO [address] [place] [address] 09/10/2024 1:00 PM EDT Office Visit [facility] [address] [place] [address] Ghislaine Hernandez, DO [address] [place] [address] 09/25/2024 9:45 AM EDT Office Visit Ophthalmology, [facility] [address] [place] [phone] Nitish Crooks, DO [address] [place] [address] Nurse Jarod Gonzales [address] [place] [address] Photographer Nubia Gonzales [address] [place] [address] 10/01/2024 10:00 AM EDT Imaging Radiology [facility] [address] [place] [phone] 01/02/2025 3:00 PM EDT Office Visit [facility] [address] [place] [address] Carolina Ramirez MD 16 [place] [address] Pending Results Name Type Priority Associated Diagnoses Date /Time TSH WITH FREE T4 IF INDICATED Lab STAT Bradycardia 07/29/2024 10:36 AM EDT Scheduled Procedures Name Priority Associated [...] Scan 04/30/2024 04/30/2017 CKD PHOS USE SMARTSET 99340 07/03/202406/08, 07/11/2022, 06/14/2021, Additional history exists Diabetic [...] Additional history exists CKD HGB USE SMARTSET 06287 07/29/202507/29, 07/29/2024, 01/18/2024, Additional history exists Colonoscopy [...] this encounter Medical Devices Implanted Type Area Apartment Community Manager Device Identifier Shelf Expiration Date Model / Serial / Lot Shunt Tube Glaucoma Ahmed Fp7 - [id number] - [id number] Implanted:Qty: 1 on 11/17/2022 by Carolina Ramirez MD at [facility] Right: Eye [employer] [id number] 09/17/2024 FP7 / [id number] / [id number] Graft [place] Number One Cornea Split - [id number] Implanted:Qty: 1 on 11/17/2022 by Carolina Ramirez MD at [facility] Right: Eye [employer] 09/11/2024 HCO-HH1 / [id number] / [id number] Shunt Tube Glaucoma Ahmed Fp7 - [id number] Implanted:Qty: 1 on 12/18/2023 by Carolina Ramirez MD at [facility] Left: Eye [employer] [id number] 10/24/2025 7 / [id number] / [id number] Graft [place] Number One Cornea Split - [id number] Implanted:Qty: 1 on 12/18/2023 by Carolina Ramirez MD at [facility] Left: Eye [employer] 10/21/2025 [facility] / [id number] / [id number] documented as of this encounter Visit Diagnoses Diagnosis Bradycardia Other specified cardiac dysrhythmias Screening mammogram for [...] and were consensually agreed upon. Care Teams Goodyear Stitcher Relationship Specialty Start Date End Date Ghislaine Hernandez DO [address] [place] [address] PCP - General Family Medicine 07/09/14 documented as of this encounter
--- OUTSIDE RECORDS SUMMARY | 2024-08-15 19:05 | External Medical Summary | Summary of Care ---
Author Name Unknown Organization [facility] Address [address] [place] [address] Phone [phone] Care Team Providers Care Fruit Loader Name Role Phone Ghislaine Hernandez DO Primary Care Provider [phone] Reason for Visit * Reason Onset Date Comments Appointment 07/29/2024 Encounter Details Date Type Department Care Team (Late st Contact Info) Description 07/29/2024 Telephone Nephrology, Luis Mariposa [address] [facility] [place] [address] Krystal Pond MD [address] [facility] [place] [address] Appointment Allergies Active Allergy Reactions Criticality Noted [...] Description 09/02/2024 1:20 PM EDT Office Visit [facility] [address] [place] [address] Ghilsaine Hernandez, DO [address] [place] [address] 09/10/2024 1:00 PM EDT Office Visit [facility] [address] [place] [address] Ghislaine Hernandez, DO [address] [place] [address] 09/25/2024 9:45 AM EDT Office Visit Ophthalmology, [facility] [address] [place], [place] [phone] Nitish Crooks DO [address] [place] [address] Christian Nurse Jarod Nubia [address] [place] [address] Christian Art Sales Consultant Nubia [address] [place] [address] 10/01/2024 10:00 AM EDT Imaging Radiology [address] [place] [phone] 01/02/2025 3:00 PM EDT Office Visit [facility] [address] [place] [address] Carolina Ramirez MD [address] [place] [address] Scheduled Procedures Name Priority Associated Diagnoses Date/Ti [...] Scan 04/30/2024 04/30/2017 CKD PHOS USE SMARTSET 78138 07/03/202406/08, 07/11/2022, 06/14/2021, Additional history exists Diabetic [...] Additional history exists CKD HGB USE SMARTSET 67328 07/29/202507/29, 07/29/2024, 01/18/2024, Additional history exists Colonoscopy [...] this encounter Medical Devices Implanted Type Area Stock Transfer Clerk Device Identifier Shelf Expiration Date Model / Serial / Lot Shunt Tube Glaucoma Ahmed Fp7 - [id number] - [id number] Implanted:Qty: 1 on 11/17/2022 by Carolina Ramirez MD at [facility] Right: Eye [employer] [id number] 09/17/2024 FP7 / [id number] / [id number] Graft [place] Cornea Split - [id number] Implanted:Qty: 1 on 11/17/2022 by Carolina Ramirez MD at [facility] Right: Eye [employer] 09/11/2024 HCO-1 / [id number] / [id number] Shunt Tube Glaucoma Ahmed Fp7 - [id number] Implanted:Qty: 1 on 12/18/2023 by Carolina Ramirez MD at [facility] Left: Eye [employer] [id number] 10/24/2025 FP7 / [id number] / [id number] Graft [place] Cornea Split - [id number] Implanted:Qty: 1 on 12/18/2023 by Carolina Ramirez MD at [facility] Left: Eye [employer] 10/21/2025 HCO-1 / [id number] / [id number] documented as of this encounter Advance [...] and were consensually agreed upon. Care Teams Fruit Loader Relationship Specialty Start Date End Date Ghislaine Hernandez DO [address] [facility] [place] [address] PCP - General Family Medicine 07/09/14 documented as of this encounter
--- OUTSIDE RECORDS SUMMARY | 2024-08-15 19:05 | External Medical Summary | Summary of Care ---
Author Name Unknown Organization [facility] Address [address] [place] [address] Phone [phone] Care Team Providers Care Manager Adult Name Role Phone Joseph Navarro DO Primary Care Provider [phone] Reason for Visit * Reason Comments Chronic Kidney Disease (CKD) Hypertension Encounter Details Date Type Department Care Team (Late st Contact Info) Description 07/29/2024 9:00 AM EDT Office Visit Nephrology, Luis Carney [address] [place] [address] Krystal Pond MD [address] [place] [address] Bradycardia*; Stage 3 chronic kidney disease, unspecified [...] Route Frequency Start Date End Date Status Yanethridarianamainor ([facility]) prefilled syringe inj 6 mgIndications:Proliferative diabetic retinopathy [...] mRNA, LNP-s, No Pre serve, 2-Dose Series ([employer]) 09/03/2020,08/13/2020 Pneumococcal Conjugate Vacc, 13 Valent (Prevnar) [...] 9:26 AM EDT -for today, go to [facility] to do labs and heart [...] 8:56 AM EDT EPHROLOGY CLINIC NOTE Nephrology, [address] [address] 07/29/2024, 8:56 AM Patient Name: Stephanie Mccauley [...] made the difference. Hospitalized 08/2017 and also07/2016 [facility] for pyelonephritis, in 2017 needed ureteral stent. [...] down on both knees on pavement in [place] August 2022 > had edema after this [...] angioedema last year from lisinopril > hospitalized [facility]. Had been on ACEI for years at [...] w/ severe GERD sx. [place] >> getting out and walking more, trying [...] UTI Patient Instructions -for today, go to [facility] to do labs and heart tests -if [...] by another provider/QHP. Krystal Pond MD Nephrology, [address] [place] [address] CC: REF: JOSEPH NAVARRO [address] [place] [address] (office) [phone] (fax) PCP: JOSEPH NAVARRO [address] [place] [address] [phone] This chart was completed in part utilizing [employer] Speech Voice Recognition Software. Randomword insertions, pronoun [...] axis Ventricular Rate: 45 Atrial Rate: 45 CT Interval: 196 QRS Duration: 96 QT/QTc: 466/403 ms P-R-T [place]: 51 : 3 : 41 degrees documented [...] [facility] [address] [place] [address] Joseph Navarro, DO [address] [place] [address] 09/10/2024 1:00 PM EDT Office Visit [facility] [address] [place] [address] Joseph Navarro, DO [address] [place] [address] 09/25/2024 9:45 AM EDT Office Visit Ophthalmology, [facility] [address] [place] [phone] Nitish Crooks, DO [address] [place] [address] Nurse Jarod Gonzales Nubia [address] [place], [place] [address] Photographer Fernando Gonzaless [address] [place], [place] [address] 10/01/2024 10:00 AM EDT Imaging Radiology [facility] 1st [facility] [address] [place] [address] 01/02/2025 3:00 PM EDT Office Visit [facility] [address] [place] [address] Carolina Ramirez MD 16 [place] [address] Pending Results Name Type Priority Associated Diagnoses [...] Scan 04/30/2024 04/30/2017 CKD PHOS USE SMARTSET 42478 07/03/202407/09, 07/04/2023, 07/11/2022, Additional history exists Diabetic [...] Additional history exists CKD HGB USE SMARTSET 13169 07/29/202507/29, 07/29/2024, 01/18/2024, Additional history exists Colonoscopy [...] this encounter Medical Devices Implanted Type Area Record Clerk Device Identifier Shelf Expiration Date Model / Serial / Lot Shunt Tube Glaucoma Ahmed Fp7 - [id number] - [id number] Implanted:Qty: 1 on 11/17/2022 by Carolina Ramirez MD at [facility] Right: Eye [employer] [id number] 09/17/2024 FP7 / [id number] / [id number] Graft [place] Cornea Split - [id number] Implanted:Qty: 1 on 11/17/2022 by Carolina Ramirez MD at [facility] Right: Eye [employer] 09/11/2024 HCO-HH1 / [id number] / [id number] Shunt Tube Glaucoma Ahmed Fp7 - [id number] Implanted:Qty: 1 on 12/18/2023 by Carolina Ramirez MD at [facility] Left: Eye [employer] [id number] 10/24/2025 FP7 / [id number] / [id number] Graft [place] Cornea Split - [id number] Implanted:Qty: 1 on 12/18/2023 by Carolina Ramirez MD at [facility] Left: Eye [employer] 10/21/2025 HCO-HH1 / [id number] / [id number] documented as of this encounter Procedures [...] MAGNESIUM STAT 07/29/2024 10:[address] ECG ROUTINE ECG W/LEAST 12 LDS I&R ONLY STAT 07/29/2024 9:57 AM EDT Bradycardia documented in this encounter Results * DIFFERENTIAL, AUTOMATED (07/29/2024 10:36 AM EDT) Pathologist [facility] WBC 7.06 4.00 - 10.80 K/uL 07/29/2024 [...] LAB BLOOD ORDERABLES Munira l Result LABORATORY [facility] [place] 57-[address] [place] [address] * CBC (07/29/2024 10:36 AM EDT) WBC 7.06 4.00 - 10.80 K/uL 07/29/2024 10:44 AM EDT LABORATORY [facility] [place] 57-10 RBC 4.24 3.85 - 5.15 M/uL 07/29/2024 10:44 AM EDT LABORATORY [facility] [place] 57-10 HGB 12.3 12.0 - 15.3 g/dL 07/29/2024 10:44 AM EDT LABORATORY [facility] [place] 57-10 HCT 37.3 36.0 - 45.2 % 07/29/2024 10:44 AM EDT LABORATORY [facility] [place] 57-10 MCV 88.0 81.5 - 97.5 fL 07/29/2024 10:44 AM EDT LABORATORY [facility] [place] 57-10 MCH 29.0 27.0 - 34.0 pg 07/29/2024 10:44 AM EDT LABORATORY [facility] [place] 57-10 MCHC 33.0 32.0 - 36.0 g/dL 07/29/2024 10:44 AM EDT LABORATORY [facility] [place] 57-10 RDW 13.5 11.5 - 15.5 % 07/29/2024 10:44 AM EDT LABORATORY [facility] [place] 57-10 PLT 264 140 - 400 K/uL 07/29/2024 10:44 AM EDT LABORATORY [facility] [place] 57-10 MPV 9.1 6.6 - 11.1 fL 07/29/2024 10:44 AM EDT LABORATORY [facility] [place] 57-10 Blood Venous blood specimen / Unknown Venipuncture / Unknown 07/29/2024 10:36 AM EDT 07/29/2024 10:37 AM EDT Krystal Pond MD LAB BLOOD ORDERABLES Munira l Result LABORATORY [facility] [place] 57[address] [place] [address] * TSH WITH FREE T4 IF INDICATED (07/29/2024 10:36 AM EDT) TSH 1.64 0.27 - 4.20 uIU/mL 07/29/2024 8:16 PM EDT LABORATORY [facility] Blood Venous blood specimen / Unknown Venipuncture / Unknown 07/29/2024 10:36 AM EDT 07/29/2024 10:37 AM EDT Krystal Pond MD LAB BLOOD ORDERABLES Munira l Result Performing Organization Address City/Va Hospital/ZIP Co de Phone Number LABORATORY [facility] [address] [place] [address] * PHOSPHORUS (07/29/2024 10:36 AM EDT) Phosphorus 3.7 2.5 - 4.8 mg/dL 07/29/2024 7:41 PM EDT LABORATORY [facility] Blood Venous blood specimen / Unknown Venipuncture / Unknown 07/29/2024 10:36 AM EDT 07/29/2024 10:37 AM EDT Krystal Pond MD LAB BLOOD ORDERABLES Munira l Result LABORATORY [facility] [address] [place] [address] * MAGNESIUM (07/29/2024 10:36 AM EDT) Magnesium 2.1 1.5 - 2.6 mg/dL 07/29/2024 7:41 PM EDT LABORATORY [facility] Blood Venous blood specimen / Unknown Venipuncture / Unknown 07/29/2024 10:36 AM EDT 07/29/2024 10:37 AM EDT Krystal Pond MD LAB BLOOD ORDERABLES Munira caro Result LABORATORY [facility] [address] [place] [address] * (ABNORMAL) URINALYSIS WITH MICROSCOPIC EXAM (07/29/2024 [...] AM EDT LABORATORY [place] 57-10 Specific [place], Urine 1.010 1.003 - 1.030 07/29/2024 10:52 [...] 2 /HPF 07/29/2024 10:52 AM EDT LABORATORY [place] 57-10 WBC, Urine 30-49(A) 0 - 2 /HPF 07/29/2024 10:52 AM EDT LABORATORY [place] 5710 Bacteria, Urine >200(A) 0 - 25 /HPF 07/29/2024 10:52 AM EDT LABORATORY [place] [facility] Squamous Epithelial Cells, Urine Many(A) None /HPF 07/29/2024 10:52 AM EDT LABORATORY [place] [address] Urine Urine specimen obtained by clean catch procedure / Unknown Non-blood Collection / Unknown 07/29/2024 10:36 AM EDT 07/29/2024 10:37 AM EDT us Krystal Pond MD LAB URINE ORDERABLES Munira l Result LABORATORY [address] [address] * (ABNORMAL) BASIC METABOLIC PANEL (07/29/2024 10:36 AM EDT) BUN 31(H) 6 - 20 mg/dL 07/29/2024 11:03 AM EDT LABORATORY [place] [address] CREATININE 1.1(H) 0.5 - 1.0 mg/dL 07/29/2024 11:03 AM EDT LABORATORY [place] [address] EGFR 54(L) >=60 mL/min 07/29/2024 11:03 AM EDT LABORATORY [place] [address] Comment:eGFR is calculated b ased on the CKD-EPI 2020 equation. SODIUM 140 135 - 146 mmol/L 07/29/2024 11:03 AM EDT LABORATORY [place] 57-10 POTASSIUM 4.1 3.5 - 5.1 mmol/L 07/29/2024 11:03 AM EDT LABORATORY [place] [address] CHLORIDE 104 98 - 107 mmol/L 07/29/2024 11:03 AM EDT LABORATORY [place] [address] CO2 24 22 - 32 mmol/L 07/29/2024 11:03 AM EDT LABORATORY [place] 57-10 ANION GAP 12 7 - 15 mmol/L 07/29/2024 11:03 AM EDT LABORATORY [place] 57-10 GLUCOSE 92 70 - 120 mg/dL 07/29/2024 11:03 AM EDT LABORATORY [facility] 57-10 CALCIUM 9.5 8.4 - 10.2 mg/dL 07/29/2024 11:03 AM EDT LABORATORY [facility] 57-10 Blood Venous blood specimen / Unknown Venipuncture / Unknown 07/29/2024 10:36 AM EDT 07/29/2024 10:37 AM EDT Krystal Pond MD LAB BLOOD ORDERABLES Munira l Result Performing Organization Address [facility]/Va Hospital/[facility] Co de Phone Number LABORATORY [facility] [address] [place] [address] * EKG (07/29/2024 9:57 AM EDT) 07/29/2024 [...] axis Ventricular Rate: 45 Atrial Rate: 45 CT Interval: 196 QRS Duration: 96 QT/QTc: 466/403 ms P-R-T [place]: 51 : 3 : 41 degrees us Krystal Pond MD EKG Final Res ult Performing Organization Address City/Va Hospital/ZIP Co de Phone Number [facility] [...] were consensually agreed upon. Care Teams Manager Adult Relationship Specialty Start Date End Date Joseph Navarro DO [address] [place] [address] PCP - General Family Medicine 07/09/14 documented as of this encounter
--- OUTSIDE RECORDS SUMMARY | 2024-08-15 19:06 | External Medical Summary | Summary of Care ---
Author Name Unknown Organization [facility] Address [address] [place] [address] Phone [phone] Care Team Providers Care Product Lead Name Role Phone Ghislaine Hernandez DO Primary Care Provider [phone] Encounter Details Date Type Department Care Team (Late st Contact Info) Description 05/01/2024 Population Health External Data Unspecified Department Allergies Active Allergy Reactions Criticality Noted Date Comments Bee Venom Edema airway,Edema Other High 01/15/2014 Eye swelled shut Ciprofloxacin Other (Please comment) Medium 11/24/2016 Trouble breathing, nausea Furosemide Rash 08/02/2023 Lisinopril High 08/14/2023 angioedema Nitrofurantoin 11/08/2018 vomiting Sulfa Antibiotics Hives,Other (Please comment) 01/15/2014 Boil/Acne like sores on abdomen documented as of this encounter (statuses as of 05/01/2024) Medications Aspirin 81 MG Tablet Take 1 [...] 180 days 1 Each 1 3 Active Dorzolamide HCl 2 % Ophthalmic Solution (Trusopt Ocumeter Plus) Instill 1 Drop into both eyes in the morning and 1 Drop in the evening. 30 mL 3 4 Active Rocklatan 0.02-0.005 % Ophthalmic Solution (Netarsudil-Latano prost) Instill 1 Drop into both eyes every evening. 7.5 mL 3 4 Active Brimonidine Tartrate-Timolol 0.2-0.5 % Ophthalmic Solution (Combigan) Instill 1 Drop into both eyes in the morning and 1 Drop before bedtime. 30 mL 3 4 Active Famotidine 20 MG Oral Tablet (Pepcid)Indication s:Gastroesophageal reflux disease with esophagitis, unspecified whether hemorrhage Take 1 Tablet by mouth in the morning and 1 Tablet before bedtime. 180 Tablet 3 4 Active EPINEPHrine 0.3 MG/0.3ML Injection Solution Auto-injector (Autoinjector) 0.3 mg. 4 Active Mometasone Furoate 0.1 % External Ointment Apply topically to affected area 2 times a day. For two weeks. 45 g 1 4 Active Atorvastatin Calcium 40 MG Oral Tablet (Lipitor)Indicatio ns:Dyslipidemia, goal LDL below 100 Take 1 tablet by mouth once daily 90 Tablet 3 4 Active glipiZIDE 5 MG Oral Tablet (Glucotrol) Take 1/2 (one-half) tablet by mouth once daily 45 Tablet 1 4 Active amLODIPine Besylate 10 MG Oral Tablet (Norvasc)Indicatio ns:HTN, goal below 130/80 Take 1 tablet by mouth once daily 90 Tablet 3 4 Active Atenolol 25 MG Oral Tablet (Tenormin)Indicati ons:HTN, goal below 130/80 Take 1 tablet by mouth once daily 90 Tablet 1 4 Active metFORMIN HCl ER 500 MG Oral Tablet Extended Release 24 Hour (Glucophage XR)Indications:Typ e 2 diabetes mellitus with hemoglobin A1c goal of less than 7.0% (HCC) Take 1 tablet by mouth once daily 90 Tablet 3 4 Active Folic Acid 1 MG Oral TabletIndications: Folic acid deficiency TAKE 1 TABLET BY MOUTH IN THE MORNING 30 Tablet 11 5 Active documented as of this encounter (statuses as of 05/01/2024) Active Problems Problem Noted Date Diagnosed Date [...] as of this encounter (statuses as of 05/01/2024) Resolved Problems Problem Noted Date Diagnosed Date [...] as of this encounter (statuses as of 05/01/2024) Immunizations Name Administration Dates Next Due COVID-19 [...] No 11/16/2022 Does the household have a [facility] source of income? (Household - for ages [...] Care Team (Late st Contact Info) Description 05/28/2024 1:15 PM EST Office Visit Ophthalmology, [facility] [address] [place] [address] Nitish Crooks, DO [address] [place] [address] 07/08/2024 1:00 PM EDT Office Visit Family Practice [facility] [address] [place] [address] Ghislaine Hernandez, DO [address] [place] [address] 08/11/2024 2:00 PM EDT Office Visit Nephrology, [facility] [address] [place] [address] Krystal Pond MD [address] [place] [address] 09/10/2024 1:00 PM EDT Office Visit Family Practice [facility] [address] [place] [address] Ghislaine Hernandez, DO [address] [place] [address] 10/01/2024 10:00 AM EDT Imaging Radiology [address] [place] [address] 01/02/2025 3:00 PM EDT Office Visit [facility] [address] [place] [address] Carolina Ramirez MD [address] [place], [place] [id number] Scheduled Procedures Name Priority Associated Diagnoses Date/Ti [...] Scan 04/30/2024 04/30/2017 CKD PHOS USE SMARTSET 94467 07/03/202406/08, 07/11/2022, 06/14/2021, Additional history exists Diabetic Foot Exam 07/03/2024 07/04/2023, 0 06/28/2022, 06/14/2021, Additional history exists DTap/Tdap Vaccines (2 - Td or Tdap) 07/17/2024 07/17/2014 GFR 07/18/2024 01/18/2024, 05/0 10/2023, 08/02/2023, Additional history exists HbA1c 07/18/2024 01/18/2024, 06/08, 01/15/2023, Additional history exists Albumin/Creatinine Ratio 08/01/2024 024, 07/06/2023, 07/11/2022, Additional history exists Depression Screening 08/13/2024 08/14/2023 Mammogram 09/30/2024 10/01/2023, 09/08, 09/27/2022, Additional history exists B-12 01/17/2025 01/18/2024, 03/10, 01/15/2023, Additional history exists CKD HGB USE SMARTSET 72378 01/17/202501/17, 01/18/2024, 08/14/2023, Additional history exists Diabetic Eye Exam 04/17/2025 04/17/2024, , 11/13/2022, Additional history exists Colonoscopy 12/07/2027 12/06/2017, 11/09, [...] this encounter Medical Devices Implanted Type Area Insights Analyst Device Identifier Shelf Expiration Date Model / Serial / Lot Shunt Tube Glaucoma Ahmed Fp7 - [id number] - [id number] Implanted:Qty: 1 on 11/17/2022 by Carolina Ramirez MD at [facility] Right: Eye [employer] [id number] 09/17/2024 [facility] / [id number] / [id number] Graft [place] Cornea Split - [id number] Implanted:Qty: 1 on 11/17/2022 by Carolina Ramirez MD at [facility] Right: Eye [employer] 09/11/2024 HCO-1 / [id number] / [id number] Shunt Tube Glaucoma Ahmed Fp7 - [id number] Implanted:Qty: 1 on 12/18/2023 by Carolina Ramirez MD at [facility] Left: Eye [employer] [id number] 10/24/2025 [facility] / [id number] / [id number] Graft [place] Cornea Split - [id number] Implanted:Qty: 1 on 12/18/2023 by Carolina Ramirez MD at [facility] Left: Eye [employer] 10/21/2025 HCO-1 / [id number] / [id number] documented as of this encounter Advance [...] and were consensually agreed upon. Care Teams Product Lead Relationship Specialty Start Date End Date Ghislaine Hernandez DO [address] [place] [address] PCP - General Family Medicine 07/09/14 documented as of this encounter
--- OUTSIDE RECORDS SUMMARY | 2024-08-15 19:06 | External Medical Summary | Summary of Care ---
Author Name Unknown Organization [facility] [address] [place] [address] Phone [phone] Care Team Providers Care Record Clerk Salesperson Name Role Phone Ghislaine Hernandez Primary Care Provider [phone] Encounter Details Date Type Department Care Team (Late st Contact Info) Description 04/15/2024 Telephone [facility] [address] [place] [address] Carolina Ramirez MD [address] [place] [address] Allergies Active Allergy Reactions Criticality Noted Date Comments Bee Venom Edema airway,Edema Other High 01/15/2014 Eye swelled shut Ciprofloxacin Other (Please comment) Medium 11/24/2016 Trouble breathing, nausea Furosemide Rash 08/02/2023 Lisinopril High 08/14/2023 angioedema Nitrofurantoin 11/08/2018 vomiting Sulfa Antibiotics Hives,Other (Please comment) 01/15/2014 Boil/Acne like sores on abdomen documented as of this encounter (statuses as of 04/21/2024) Medications Aspirin 81 MG Tablet Take 1 Tablet by mouth in the morning. 90 Tab 8 Active cholecalciferol, VIT D3, (VITAMIN D3) 1000 UNITS Tablet Take 1 Tablet by mouth in the morning. 0 Active OneTouch Ultra Blue In Vitro Strip (Glucose Blood)Indications: Type 2 diabetes mellitus with hemoglobin A1c goal of less than 7.0% ([facility]) Use to test blood sugar once daily 100 Strip 11 1 Active Zoster Vac Recomb Adjuvanted 50 MCG/0.5ML Intramuscular Suspension Reconstituted (Shingrix)Indicati ons:Need for vaccination for zoster Inject 0.5 mL into a large muscle now and repeat dose in 60 to 180 days 1 Each 1 3 Active Folic Acid 1 MG Oral TabletIndications: Folic acid deficiency Take 1 Tablet by mouth in the morning. 30 Tablet 11 3 Active Dorzolamide HCl 2 % Ophthalmic [...] once daily 90 Tablet 3 4 Active documented as of this encounter (statuses as of 04/21/2024) Active Problems Problem Noted Date Diagnosed Date [...] as of this encounter (statuses as of 04/21/2024) Resolved Problems Problem Noted Date Diagnosed Date [...] as of this encounter (statuses as of 04/21/2024) Immunizations Name Administration Dates Next Due COVID-19 [...] No 11/16/2022 Does the household have a [facility] source [facility]? (Household - for ages [...] encounter Miscellaneous Notes * Telephone Encounter - Keli Mosqueda [facility] - 04/15/2024 3:29 PM EST Return for [address] Camejo documented in this encounter Plan of Treatment Upcoming Encounters Date Type Department Care Team (Late st Contact Info) Description 05/01/2024 9:00 AM EST Office Visit Allergy/Immunology [facility] [address] [place] [address] Myron Jones MD [address] [place] [address] 05/28/2024 1:15 PM EST Office Visit Ophthalmology, [facility] [place] [address] Nitish Crooks, DO [address] [facility] [place] [address] 07/08/2024 1:00 PM EDT Office Visit [facility] 132 [facility] [place] [address] Ghislaine Hernandez, DO [address] [facility] [place] [address] 08/11/2024 2:00 PM EDT Office Visit Nephrology, [facility] [address] [place] [address] Krystal Pond MD [address] [place] [address] 09/10/2024 1:00 PM EDT Office Visit [facility] 132 [facility] [place] [address] Ghislaine Hernandez, DO 132 [facility] [place] [address] 10/01/2024 10:00 AM EDT Imaging Radiology [facility] 1st [facility] [address] [place] [phone] 01/02/2025 3:00 PM EDT Office Visit [facility] [address] [address] Carolina Ramirez MD [address] [place] [address] Scheduled Procedures Name Priority Associated Diagnoses Date/Ti [...] Scan 04/30/2024 04/30/2017 CKD PHOS USE SMARTSET 52880 07/03/202406/08, 07/11/2022, 06/14/2021, Additional history exists Diabetic Foot Exam 07/03/2024 07/04/2023, 0 06/28/2022, 06/14/2021, Additional history exists DTap/Tdap Vaccines (2 - Td or Tdap) 07/17/2024 07/17/2014 GFR 07/18/2024 01/18/2024, 0510/2023, 08/02/2023, Additional history exists HbA1c 07/18/2024 01/18/2024, 06/08, 01/15/2023, Additional history exists Albumin/Creatinine Ratio 08/01/2024 024, 07/06/2023, 07/11/2022, Additional history exists Depression Screening 08/13/2024 08/14/2023 Mammogram 09/30/2024 10/01/2023, 09/08, 09/27/2022, Additional history exists B-12 01/17/2025 01/18/2024, 03/10, 01/15/2023, Additional history exists CKD HGB USE SMARTSET 81872 01/17/202501/17, 01/18/2024, 08/14/2023, Additional history exists Diabetic [...] this encounter Medical Devices Implanted Type Area Vp Ad Products And Planning Device Identifier Shelf Expiration Date Model / Serial / Lot Shunt Tube Glaucoma Ahmed Fp7 - [id number] - [id number] Implanted:Qty: 1 on 11/17/2022 by Carolina Ramirez MD at [facility] Right: Eye [employer] [id number] 09/17/2024 FP7 / [id number] / [id number] Graft [place] Cornea Split - [id number] Implanted:Qty: 1 on 11/17/2022 by Carolina Ramirez MD at [facility] Right: Eye [employer] 09/11/2024 HCO-HH1 / [id number] / [id number] Shunt Tube Glaucoma Ahmed Fp7 - [id number] Implanted:Qty: 1 on 12/18/2023 by Carolina Ramirez MD at [facility] Left: Eye [employer] [id number] 10/24/2025 FP7 / [id number] / [id number] Graft [place] Cornea Split - [id number] Implanted:Qty: 1 on 12/18/2023 by Carolina Ramirez MD at [facility] Left: Eye [employer] 10/21/2025 HCO-HH1 / [id number] / [id number] documented as of this encounter Advance [...] and were consensually agreed upon. Care Teams Record Clerk Salesperson Relationship Specialty Start Date End Date Ghislaine Hernandez DO [address] [place] [address] PCP - General Family Medicine 07/09/14 documented as of this encounter
--- OUTSIDE RECORDS SUMMARY | 2024-08-15 19:06 | External Medical Summary | Summary of Care ---
Author Name Unknown Organization [facility] Address [address] [place] [address] Phone [phone] Care Team Providers Care Lead Pl Sql Developer Name Role Phone NathanielGhislaine alcantar Amita PUGH Primary Care Provider [phone] Reason for Visit * Reason Comments Follow Up * Precert (Within 10 days (routine)) - Authorized Specialty Diagnoses / Procedures Referred By Tristian hammonds Referred To Contact Ophthalmology Diagnoses Type 2 diabetes mellitus with moderate nonproliferative diabetic retinopathy with macular edema, right eye (HCC) Procedures FL INJECTION, FARICIMAB-SVOA, 0.1 MG INJECTION OF EYE DRUG Nitish Crooks DO Phone: tel: fax: [facility], [facility] [address] [facility] [place] [address] Phone: tel: fax: Referral ID Status Reason Start Date Expiration Date V isits Requested Visits Authorized [id number] Authorized Precert 04/27/2022 04/08/2099 [id number] Encounter Details Date Type Department Care Team (Late st Contact Info) Description 04/17/2024 10:30 AM EST Office Visit Ophthalmology, [facility] [address] [place] [address] Nitish Crooks DO [address] [place] [address] 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, unspecified proliferative retinopathy type (HCC)*; Encounter for diabetes type 2 eye exam (HCC) Allergies Active Allergy Reactions Criticality Noted Date Comments Bee Venom Edema airway,Edema Other High 01/15/2014 Eye swelled shut Ciprofloxacin Other (Please comment) Medium 11/24/2016 Trouble breathing, nausea Furosemide Rash 08/02/2023 Lisinopril High 08/14/2023 angioedema Nitrofurantoin 11/08/2018 vomiting Sulfa Antibiotics Hives,Other (Please comment) 01/15/2014 Boil/Acne like sores on abdomen documented as of this encounter (statuses as of 04/17/2024) Medications Aspirin 81 MG Tablet Take 1 [...] 3 Active Folic Acid 1 MG Oral TabletIndications :Folic acid deficiency Take 1 Tablet by mouth in the morning. 30 Tablet 11 3 Active Dorzolamide HCl 2 % Ophthalmic Solution (Trusopt Ocumeter Plus) Instill 1 Drop into both eyes in the morning and 1 Drop in the evening. 30 mL 3 4 Active Rocklatan 0.02-0.005 % Ophthalmic Solution (Netarsudil-Latan oprost) Instill 1 Drop into both eyes every evening. 7.5 mL 3 4 Active Brimonidine Tartrate-Timolol 0.2-0.5 % Ophthalmic Solution (Combigan) Instill 1 Drop into both eyes in the morning and 1 Drop before bedtime. 30 mL 3 4 Active Famotidine 20 MG Oral Tablet (Pepcid)Indicatio [...] 4 Active Atenolol 25 MG Oral Tablet (Tenormin)Indicat ions:HTN, goal below 130/80 Take 1 tablet by mouth once daily 90 Tablet 1 4 Active metFORMIN HCl ER 500 MG Oral Tablet Extended Release 24 Hour (Glucophage XR)Indications:Ty pe 2 diabetes mellitus with hemoglobin A1c goal of less than 7.0% (HCC) Take 1 tablet by mouth once daily 90 Tablet 3 4 Active Brinzolamide 1 % Ophthalmic Suspension (Azopt) Instill 1 Drop into both eyes in the morning and 1 Drop before bedtime. 10 mL 11 4 025 Discontin ued(Medic ation List Clean Up) Dorzolamide HCl-Timolol Mal 2-0.5 % Ophthalmic Solution (Cosopt Ocumeter Plus) Instill 1 Drop into both eyes in the morning and 1 Drop before bedtime. 30 mL 3 5 025 Discontin ued(Medic ation List Clean Up) documented as of this encounter (statuses as of 04/17/2024) Active Problems Problem Noted Date Diagnosed Date [...] as of this encounter (statuses as of 04/17/2024) Resolved Problems Problem Noted Date Diagnosed Date [...] as of this encounter (statuses as of 04/17/2024) Immunizations Name Administration Dates Next Due COVID-19 mRNA, LNP-s, No Pre serve, 2-Dose Series (skyrockit) 09/03/2020,08/13/2020 Pneumococcal Conjugate Vacc, 13 Valent (Prevnar) [...] encounter Progress Notes * Nitish Crooks, - 04/17/2024 10:[address] [facility] [place] Nursing Notes: Porsha Adkins RN 04/17/24 1025 Signed Stephanie Mccauley is a 73 year old year old female who presents for PDR OU. Last Office Visit: 03/11/2024 (in office), Visit date not found (telemedicine) Patient currently states "right eye was better and both eyes clear but that flucuates" Are you diabetic? No Do you drive? no OCT image(s) of both eyes acquired and filed/scanned into chart. Base Eye Exam Visual Acuity (Snellen - Linear) Right Left Dist sc 20/70 -1 20/100 -1 Dist ph sc 20/60 -1 NI Tonometry (Tonopen, 10:23 AM) Right Left Pressure 14 15 Pupils Pupils APD Right PERRL None Left PERRL None Visual Herman (Counting fingers) Right Left Full Full Extraocular Movement Right Left Full, Ortho Full, Ortho Neuro/Psych Oriented x3: Yes Mood/Affect: Normal Dilation Both eyes: 0.5% Proparacaine @ 10:23 AM Dilation #2 Both eyes: 1.0% Mydriacyl, 2.5% Phenylephrine @ 10:23 AM Dilation #3 Both eyes: 1.0% Mydriacyl, 2.5% Phenylephrine @ 10:25 AM Dilation Comments Patient cautioned that effects of dilation may last 2-7 hours dependant upon individual reaction. It was discussed that driving while dilated is not recommended. EXTERNAL: The ocular adnexae are unremarkable. SLE: Lids/Lashes: wnl OU Conjunctiva/Sclera: Ahmed ST OU Cornea: clear OU Anterior Chamber: tube OD; deep and quiet OU Iris: regressed NVI OU Lens: PCIOL OU, s/p yag cap OU GONIOSCOPY: 12/04/2023: OD: mostly closed, NVA x 360--resolved OS: angle partially closed, +NVA--WORSE Dilated fundus exam OD: vitreous: clear optic nerve: 0.3, no edema/pallor/NVD macula: no CIDME, +national accounts sales vessels: wnl midperiphery: +national accounts sales periphery: PRP, no RT/RD Dilated fundus exam OS: vitreous: clear optic nerve: 0.3, no edema/pallor/NVD macula: no CIDME, +national accounts sales vessels: wnl midperiphery: +national accounts sales periphery: PRP, no RT/RD OCT Interpretation: OD: +DME, no srfluid, no PVD -improved 178um prior worse 271um prior no sig change, prior STABLE, prior improved 106um, prior worse 72um, prior improved 28um prior worse 54um prior improved 35um, prior mildy worse, prior improved, prior STABLE OS: no sig DME, no srlfuid, no PVD -stable, prior no sig change, prior STABLE, prior STABLE, prior STABLE OCTA Interpretation: 07/31/2023 OD: capillary nonperfusion OS: capillary nonperfusion A/P: 1. Proliferative diabetic retinopathy OU -++DME OU on presentation OD: -s/p Triesence OD 12/25/14--great response -s/p ILUVIEN OD (07/29/15) -s/p FML/micropulse 01/03/17 -s/p Triesence (08-18-16) -s/p Eylea OD (10/31/21, 08/15/21, 06/08/21, 04/22/21, 02-15-21, 01-03-21, 11-11-20, 09-23-20, 08-05-20, 06-22-20, 03-17-20, 01-08-20, 11-04-19, 09-02-19, 07-15-19, 05-20-19, 03-27-19, 01-30-19, 12-04-18, 10-16-18, 08-01-18, 06-20-18, 05-02-18, 02-26-18, 10-05-2017, 05/15/17, 01-18-17, 10-31-17, 07/06/16, 05-25-17, 02/03/16, 10/22/15, 09/09/15..., 05/19/15, 03/18/15, 11/11/14, 10/15/14, 09/15/14) -Vabysmo OD 03/11/24, 11/02/22--NVI/NVA, 04/20/22, 01/27/22 -went 10 months -s/p PRP 01/31/23, 01/03/23 -worsening DME and NVI -Vabysmo 03/11/24, 09/11/2023 -5 weeks; worse at 26 weeks OS: -s/p Triescence OS 02/04/15--great response -s/p ILUVIEN OS (05/13/15) -s/p PRP 01/24/23 -s/p Eylea OS (12/10/21, 09/23/21, 07/08/21, 03/21/21, 01-24-, 12-09-20, 10-28-21, 09-09-20, 07-22-21, 06-01-, 20, 12-02-20, 20, 08-19-20, 06-30-20, 05-06-20, 03-19-19, 02-05-19, 12-18-19, 10-24-19, 08-15-, 07-03-, 04-18-18, 18, 06-26-2017, 03-29-17, 12/07/16, 08-03-17, 04/20/16, 01/06/16, 09/24/15, 04/29/15, 01/07/15, 11/26/14, 10/29/14, 09/24/14) -Vabysmo OS 12/04/23-recurrent NVI/NVA , 03/28/23, 11/08/22--NVI, 06/01/22, 03/09/2022 -19 weeks, went 8 months s/p Ahmed seton implant with corneal patch graft, left eye (12/18/23) -recommend HgbA1C <7, BP and lipid control. 2. Neovascular Glaucoma OU -s/p Ahmed OD--Dr. Camejo -s/p ROD AND TUBE STRAIGHTENER OD 10/30/23--Dr. Camejo Final eye medication list BOTH EYES Cosopt bid OU Rocklatan at bedtime OU (insurance no longer covering but has 4 month supply still, then transitionto PGA) 3. Myopia OU -(-3.50D) -no myopic retinopathy 4. Pseudophakia OU -stable, by Dr. Haile -does not drive f/u 4-6 weeks, OCT OU Nitish Crooks DO CC: Dr. Camejo CC: Palmer Haile DO PCP: Ghislaine Hernandez DO documented in this encounter Nursing Notes * Porsha Adkins RN - 04/17/2024 10:17 AM EST Stephanie Mccauley is a 73 year old year old female who presents for PDR OU. Last Office Visit: 03/11/2024 (in office), Visit date not found (telemedicine) Patient currently states "right eye was better and both eyes clear but that flucuates" Are you diabetic? No Do you drive? no OCT image(s) of both eyes acquired and filed/scanned into chart. documented in this encounter Plan of Treatment Upcoming Encounters Date Type Department Care Team (Late st Contact Info) Description 04/21/2024 6:10 PM EST [facility] [address] [place] [address] [facility] [address] [place] [address] 05/01/2024 9:00 AM EST Office Visit Allergy/Immunology [facility] [place] [address] [place] [address] Myron Jones MD [address] [place] [address] 07/08/2024 1:00 PM EDT [facility] [address] [facility] [place] [place] [address] Ghislaine Hernandez, DO [address] [place] [address] 08/11/2024 2:00 PM EDT Office Visit Nephrology, [facility] [address] [facility] [place] [address] Krystal Pond MD [address] [facility] [place] [address] 09/10/2024 1:00 PM EDT Office Visit [facility] [address] [place] [address] Ghislaine Henrandez, DO [address] [place] [address] 10/01/2024 10:00 AM EDT Imaging Radiology [facility] [address] [place] [address] 01/02/2025 3:00 PM EDT Office Visit [facility] [address] [place] [address] Carolina Ramirez MD [address] [place] [address] Scheduled Orders Name Type Priority Associated Diagnoses Orde r Schedule RETINA SCAN DIAGNOSTIC IMAGE, POSTERIOR Procedures Routine 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, unspecified proliferative retinopathy type (HCC) Ordered: 04/17/2024 Scheduled Procedures Name Priority Associated Diagnoses Date/Ti [...] Scan 04/30/2024 04/30/2017 CKD PHOS USE SMARTSET 78471 07/03/20242 10/2023, 07/11/2022, 06/14/2021, Additional history exists [...] Additional history exists CKD HGB USE SMARTSET 19170 01/17/202501/17, 01/18/2024, 08/14/2023, Additional history exists Diabetic Eye Exam 04/17/2025 04/17/2024, , 11/13/2022, Additional history exists Colonoscopy 12/07/2027 12/06/2017, 08/, 11/16/2014, Additional history exists Colorectal Cancer Screening [...] this encounter Medical Devices Implanted Type Area Academic Coach Device Identifier Shelf Expiration Date Model / Serial / Lot Shunt Tube Glaucoma Ahmed Fp7 - [id number] - [id number] Implanted:Qty: 1 on 11/17/2022 by Carolina Ramirez MD at [facility] Right: Eye [employer] [id number] 09/17/2024 FP / [id number] / [id number] Graft [place] Cornea Split - [id number] Implanted:Qty: 1 on 11/17/2022 by Carolina Ramirez MD at [facility] Right: Eye [employer] 09/11/2024 O-1 / [id number] / [id number] Shunt Tube Glaucoma Ahmed Fp7 - [id number] Implanted:Qty: 1 on 12/18/2023 by Carolina Ramirez MD at [facility] Left: Eye [employer] [id number] 10/24/2025 [facility] / [id number] / [id number] Graft [place] Cornea Split - [id number] Implanted:Qty: 1 on 12/18/2023 by Carolina Ramirez MD at [facility] Left: Eye [employer] 10/21/2025 O-1 / [id number] / [id number] documented as of this encounter Visit Diagnoses Diagnosis 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 Care Teams Lead Pl Sql Developer Relationship Specialty Start Date End Date Ghislaine Hernandez DO [address] [place] [address] PCP - General Family Medicine 07/09/14 documented as of this encounter
--- OUTSIDE RECORDS SUMMARY | 2024-08-15 19:06 | External Medical Summary | Summary of Care ---
Author Name Unknown Organization [facility] Address [address] [place] [address] Phone [phone] Care Team Providers Care Analyst [employer] Name Role Phone NathanielGhislaine alcantar Amita PUGH Primary Care Provider [phone] Reason for Visit * Reason Comments Follow Up * Precert (Within 10 days (routine)) - Authorized Specialty Diagnoses / Procedures Referred By Tristian hammonds Referred To Contact Ophthalmology Diagnoses Type 2 diabetes mellitus with moderate nonproliferative diabetic retinopathy with macular edema, right eye (HCC) Procedures [place] INJECTION, FARICIMAB-SVOA, 0.1 MG INJECTION OF EYE DRUG Nitish Crooks DO Phone: tel: fax: [facility] [address] [facility] [place] [address] Phone: tel: fax: Referral ID Status Reason Start Date Expiration Date V isits Requested Visits Authorized [id number] Authorized Precert 04/27/2022 04/08/2099 [id number] Encounter Details Date Type Department Care Team (Late st Contact Info) Description 05/28/2024 1:15 PM EST Office Visit Ophthalmology, [facility] [address] [place] [address] Nitish Crooks DO [address] [facility] [place] [address] Proliferative diabetic retinopathy of both eyes associated [...] as of this encounter (statuses as of 05/28/2024) Medications Aspirin 81 MG Tablet Take 1 Tablet by mouth in the morning. 90 Tab 8 Active cholecalciferol, VIT D3, (VITAMIN D3) 1000 UNITS Tablet Take 1 Tablet by mouth in the morning. 0 Active OneTouch Ultra Blue In Vitro Strip (Glucose Blood)Indications: Type 2 diabetes mellitus with hemoglobin A1c goal of less than 7.0% ([facility]) Use to test blood sugar once [...] THE MORNING 30 Tablet 11 5 Active Hospital, Clinic, or Other Facility Administered Medication Ordered Dose Route Frequency Start Date End Date Status [facility]-svoa (Vabysmo) prefilled syringe inj 6 mgIndications:Proliferative diabetic [...] as of this encounter (statuses as of 05/28/2024) Active Problems Problem Noted Date Diagnosed Date [...] as of this encounter (statuses as of 05/28/2024) Resolved Problems Problem Noted Date Diagnosed Date [...] as of this encounter (statuses as of 05/28/2024) Immunizations Name Administration Dates Next Due COVID-19 mRNA, LNP-s, No Pre serve, 2-Dose Series (Appbistro) 09/03/2020,08/13/2020 Pneumococcal Conjugate Vacc, 13 Valent (Prevnar) [...] this encounter Progress Notes * Nitish Crooks, DO - 05/28/2024 1:15 PM EST [facility] [place] Nursing Notes: Porsha Adkins RN 05/28/24 1333 Signed Stephanie Mccauley is a 73 year old year old female who presents for PDR OU. Last Office Visit: 04/17/2024 (in office), Visit date not found (telemedicine) Patient currently states no change in vision. Are you diabetic? Yes. Do you check your blood sugars daily? YES. Fasting BS this mornin mg/dl. Last Hemoglobin A1C: Lab Results Component Value Date/Time HGBA1C 6.9 (H) 01/18/2024 09:43 AM HGBA1C 7.3 (H) 07/04/2023 03:02 PM HGBA1C 6.7 (H) 01/15/2023 03:15 PM HGBA1C 6.5 (H) 09/20/2019 09:37 AM HGBA1C 6.9 (H) 03/13/2019 10:25 AM HGBA1C 6.7 (H) 09/10/2018 11:[address]? no OCT image(s) of both eyes acquired and filed/scanned into chart. Base Eye Exam Visual Acuity (Snellen - Linear) Right Left Dist sc 20/70 -1 20/100 -2 Dist ph sc 20/15 20/100 Tonometry (Tonopen, 1:32 PM) Right Left Pressure 10 13 Pupils Pupils APD Right PERRL None Left PERRL None Visual Herman (Counting fingers) Right Left Full Full Extraocular Movement Right Left Full, Ortho Full, Ortho Neuro/Psych Oriented x3: Yes Mood/Affect: Normal Dilation Both eyes: 0.5% Proparacaine @ 1:31 PM Dilation #2 Both eyes: 1.0% Mydriacyl, 2.5% Phenylephrine @ 1:31 PM Dilation #3 Both eyes: 1.0% Mydriacyl, 2.5% Phenylephrine @ 1:33 PM Dilation Comments Patient cautioned that effects of dilation may last 2-7 hours dependant upon individual reaction. It was discussed that driving while dilated is not recommended. EXTERNAL: The ocular adnexae are unremarkable. SLE: Lids/Lashes: wnl OU Conjunctiva/Sclera: Ahmed ST OU Cornea: clear OU Anterior Chamber: tube OD; deep and quiet OU Iris: regressed NVI OD; +NVI OS--WORSE Lens: PCIOL OU, s/p yag cap OU GONIOSCOPY: 12/04/2023: OD: mostly closed, NVA x 360--resolved OS: angle partially closed, +NVA--WORSE Dilated fundus exam OD: vitreous: clear optic nerve: 0.3, no edema/pallor/NVD macula: no CIDME, +bandoleer packer vessels: wnl midperiphery: +bandoleer packer periphery: PRP, no RT/RD Dilated fundus exam OS: vitreous: clear optic nerve: 0.3, no edema/pallor/NVD macula: no CIDME, +bandoleer packer vessels: wnl midperiphery: +bandoleer packer periphery: PRP, no RT/RD OCT Interpretation: OD: [...] 08-01-18, 06-20-18, 05-02-18, 02-26-18, 10-05-2017, 05/15/17, 01-18-17, 10-31-16, 07/06/16, 05-25-16, 02/03/16, 10/22/15, 09/09/15..., 05/19/15, 03/18/15, 11/11/14, 10/15/14, 09/15/14) -Vabysmo OD 03/11/24, 11/02/22--NVI/NVA, 04/20/22, 01/27/22 -went 10 months -s/p PRP 01/31/23, 01/03/23 -worsening DME and NVI -Vabysmo 03/11/24, 09/11/2023 -11 weeks; worse at 26 weeks OS: -s/p Triescence OS 02/04/15--great response -s/p ILUVIEN OS (05/13/15) -s/p PRP 01/24/23 -s/p Eylea OS (12/10/21, 09/23/21, 07/08/21, 03/21/21, 01-24-21, 12-09-20, 10-28-20, 09-09-20, 07-22-20, 06-01-20, 02-11-20, 12-03-19, 10-08-19, 08-20-19, 07-01-19, 05-06-19, 03-19-19, 02-05-19, 12-18-18, 10-24-18, 08-15-18, 07-03-18, 04-18-18, 12-04-17, 06-26-2017, 03-29-17, 12/07/16, 08-03-16, 04/20/16, 01/06/16, 09/24/15, 04/29/15, 01/07/15, 11/26/14, 10/29/14, 09/24/14) -Vabysmo OS 12/04/23-recurrent NVI/NVA , 03/28/23, 11/08/22--NVI, 06/01/22, 03/09/2022 -5 months, went 8 months s/p Ahmed seton implant with corneal patch graft, left eye (12/18/23) -recommend HgbA1C <7, BP and lipid control. 2. Neovascular Glaucoma OU -s/p Ahmed OD--Dr. Camejo -s/p PHLEBOTOMY SUPERVISOR OD 10/30/23--Dr. Camejo Final eye medication list [...] Palmer Haile DO PCP: Ghislaine Hernandez DO TIMEOUT PROCEDURE: correct patient identity-YES correct procedure and consent-YES verified side and site-YES correct patient position-YES all necessary equipment/prior studies present-YES reviewed special requirements of this patient-YES PROCEDURE: Intravitreal injection of Vabysmo (faricimab) 6mg OS INFORMED CONSENT: Risks, benefits and alternatives have been discussed with the patient. Risks include, but are not limited to: retinal tears, detachments, hemorrhage, glaucoma, infection, cataracts, need for more procedures and the potential risk of arterial thromboembolic events following use of intravitreal VEGF inhibitors defined as nonfatal stroke, nonfatal myocardial infarction or vascular . Patient is aware of these risks and consents to the procedure. DESCRIPTION OF PROCEDURE: The procedure site was confirmed. Topical proparacaine was applied to the surface of the eye after which subconjunctival anesthetic was administered. The area was prepped in the standard aseptic manner with 5% Betadine solution. An eyelid speculum was placed and 6mg (0.05 ml) of Vabysmo was injected 3.75 mm posterior to the limbus into the midvitreous cavity with a 30 gauge short needle. The eye speculum was removed, Betadine was flushed from the eye and optic nerve perfusion was insured. The patient tolerated the procedure without difficulty and was given followup instructions and instructedto use ophthalmic ointment 3x/day as needed. Nitish Crooks DO, performed the procedure in its entirety. documented in this encounter Nursing Notes * Estrella Cervantes TECH - 05/28/2024 1:48 PM EST Stephanie Amita Mccauley to receive sixth Vabysmo 6mg Injection of the Left eye. Correct eye confirmed with patient and marked by Nitish Crooks DO Vabysmo 6mg lot # [id number] Exp. Date: 07/2025 * Porsha Adkins RN - 05/28/2024 1:26 PM EST Stephanie Mccauley is a 73 year old year old female who presents for PDR OU. Last Office Visit: 04/17/2024 (in office), Visit date not found (telemedicine) Patient currently states no change in vision. Are you diabetic? Yes. Do you check your blood sugars daily? YES. Fasting BS this mornin mg/dl. Last Hemoglobin A1C: Lab Results Component Value Date/Time HGBA1C 6.9 (H) 01/18/2024 09:43 AM HGBA1C 7.3 (H) 07/04/2023 03:02 PM HGBA1C 6.7 (H) 01/15/2023 03:15 PM HGBA1C 6.5 (H) 09/20/2019 09:37 AM HGBA1C 6.9 (H) 03/13/2019 10:25 AM HGBA1C 6.7 (H) 09/10/2018 11:[address]? no OCT image(s) of both eyes acquired and filed/scanned into chart. documented in this encounter Plan of Treatment Upcoming Encounters Date Type Department Care Team (Late st Contact Info) Description 07/08/2024 1:00 PM EDT Office Visit Family Practice [facility] [address] [place] [address] Ghislaine Hernandez, DO [address] [place] [address] 07/17/2024 1:30 PM EDT Office Visit Ophthalmology, [facility] [address] [place] [address] Nitish Crooks DO [address] [place] [address] Nurse Jarod Gonzales [address] [place] [address] Photographer Nubia Gonzales [address] [place] [address] 08/11/2024 2:00 PM EDT Office Visit Nephrology, Luis Carney [address] [place] [address] Krystal Pond MD [address] [place] [address] 09/10/2024 1:00 PM EDT Office Visit Family Practice [facility] [address] [place] [address] Ghislaine Hernandez DO [address] [place] [address] 10/01/2024 10:00 AM EDT Imaging Radiology [address] [facility] [place] [id number] 01/02/2025 3:00 PM EDT Office Visit [facility] [address] [place] [address] Carolina Ramirez MD [address] [place] [address] Scheduled Orders Name Type Priority Associated Diagnoses Orde r Schedule RETINA SCAN DIAGNOSTIC IMAGE, POSTERIOR Procedures Routine 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, unspecified proliferative retinopathy type (HCC) Ordered: 05/28/2024 Scheduled Procedures Name Priority Associated Diagnoses Date/Ti me COLONOSCOPY FLEXIBLE PROXIMA L DIAGNOSTIC Recall Encounter for screening colonoscopy Health Maintenance Due Date Last Done Comments Cologuard 08/16/1996 Sigmoidoscopy 08/16/1996 Zoster Vaccines (3 of 3) 01/26/2019 12/01/2018, 12/09 Adult Wellness Visit 06/22/2020 06/23/2019 COVID-19 Vaccine (3 - season) 2023 09/03/2020, 08/13/2020 Fecal Occult Blood Test 04/11/2024 04/11/2023, 10/05 DXA Scan 04/30/2024 04/30/2017 CKD PHOS USE SMARTSET 96989 07/03/20242 10/2023, 07/11/2022, 06/14/2021, Additional history exists [...] Additional history exists CKD HGB USE SMARTSET 51558 01/17/202501/17, 01/18/2024, 08/14/2023, Additional history exists Diabetic [...] this encounter Medical Devices Implanted Type Area Ndt Inspector Device Identifier Shelf Expiration Date Model / Serial / Lot Shunt Tube Glaucoma Ahmed Fp7 - [id number] - [id number] Implanted:Qty: 1 on 11/17/2022 by Carolina Ramirez MD at [facility] Right: Eye [employer] [id number] 09/17/2024 FPAugustus / [id number] / [id number] Graft [place] Cornea Split - [id number] Implanted:Qty: 1 on 11/17/2022 by Carolina Ramirez MD at [facility] Right: Eye [employer] 09/11/2024 O-1 / [id number] / [id number] Shunt Tube Glaucoma Ahmed Fp7 - [id number] Implanted:Qty: 1 on 12/18/2023 by Carolina Ramirez MD at [facility] Left: Eye [employer] [id number] 10/24/2025 [facility] / [id number] / [id number] Graft [place] Cornea Split - [id number] Implanted:Qty: 1 on 12/18/2023 by Carolina Ramirez MD at [facility] Left: Eye [employer] 10/21/2025 HCO-1 / [id number] / [id number] documented as of this encounter Visit Diagnoses Diagnosis 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, unspecified proliferative retinopathy type (HCC)- Primary Screening mammogram for breast cancer documented in this encounter Administered Medications Active Administered Medications - up to 3 most recent administrations Medication Order MAR Action Action Date Dose Rate Site Faricimab-svoa (Vabysmo) prefilled syringe inj 6 mg 6 mg, Intravitreal, PRN Other, Starting on Sun05/28/24 at 1355, Until Sun05/28/25 at 1354, For 365 days, Each syringe should only be used for the treatment of a single eye. Only use the provided injection filter needle for the administration. Syringe must be stored under refrigeration and away from light. Syringe must reach room temperature prior to administration. May be kept at room temperature for up to 24 hours.Indications:Proliferativ e diabetic retinopathy of both eyes associated with type 2 diabetes mellitus, unspecified proliferative retinopathy type (HCC) Given 05/28/2024 2:39 PM EST 6 mg Eye L eft ROPivacaine (Naropin) inj 1.5 mg 1.5 mg, Injection, PRN Other, Starting on Sun05/28/24 at 1355, Until Megan 05/28/25 at 1354, For 365 daysIndications: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, unspecified proliferative retinopathy type (HCC) Given 05/28/2024 2:39 PM EST 1.5 mg Eye L eft documented in this encounter Advance Directives * [...] and were consensually agreed upon. Care Teams Analyst [employer] Relationship Specialty Start Date End Date Ghislaine Hernandez DO [address] [facility] [place] [address] PCP - General Family Medicine 07/09/14 documented as of this encounter
--- OUTSIDE RECORDS SUMMARY | 2024-08-15 19:06 | External Medical Summary | Summary of Care ---
Author Name Unknown Organization [facility] Address [address] [place] [address] Phone [phone] Care Team Providers Care Director Client Services Name Role Phone Ghislaine Hernandez Primary Care Provider [phone] Reason for Visit * Reason Comments Follow Up 73 yo female here fo r 12 week po f/u OS Encounter Details Date Type Department Care Team (Late st Contact Info) Description 04/15/2024 2:00 PM EST Office Visit [facility] [address] [place] [address] Bashir Alejandra, Carolina Mortensen MD [address] [place] [address] Neovascular glaucoma of left eye, moderate stage* Allergies Active Allergy Reactions Criticality Noted Date Comments Bee Venom Edema airway,Edema Other High 01/15/2014 Eye swelled shut Ciprofloxacin Other (Please comment) Medium 11/24/2016 Trouble breathing, nausea Furosemide Rash 08/02/2023 Lisinopril High 08/14/2023 angioedema Nitrofurantoin 11/08/2018 vomiting Sulfa Antibiotics Hives,Other (Please comment) 01/15/2014 Boil/Acne like sores on abdomen documented as of this encounter (statuses as of 04/15/2024) Medications Aspirin 81 MG Tablet Take 1 Tablet by mouth in the morning. 90 Tab 09/05/19 18 Active cholecalciferol, VIT D3, (VITAMIN D3) 1000 UNITS Tablet Take 1 Tablet by mouth in the morning. 04/17/19 20 Active OneTouch Ultra Blue In Vitro Strip (Glucose Blood)Indication s:Type 2 diabetes mellitus with hemoglobin A1c goal of less than 7.0% ([facility]) Use to test blood sugar once daily 100 Strip 11 06/12/19 21 Active Zoster Vac Recomb Adjuvanted 50 MCG/0.5ML Intramuscular Suspension Reconstituted (Shingrix)Indica tions:Need for vaccination for zoster Inject 0.5 mL into a large muscle now and repeat dose in 60 to 180 days 1 Each 1 06/29/19 23 Active Folic Acid 1 MG Oral TabletIndication s:Folic acid deficiency Take 1 Tablet by mouth in the morning. 30 Tablet 11 04/03/20 23 Active Dorzolamide HCl 2 % Ophthalmic Solution (Trusopt Ocumeter Plus) Instill 1 Drop into both eyes in the morning and 1 Drop in the evening. 30 mL 3 04/19/19 24 Active Rocklatan 0.02-0.005 % Ophthalmic Solution (Netarsudil-Rebecca noprost) Instill 1 Drop into both eyes every evening. 7.5 mL 04/19/19 24 Active Brimonidine Tartrate-Timolol 0.2-0.5 % Ophthalmic Solution (Combigan) Instill 1 Drop into both eyes in the morning and 1 Drop before bedtime. 30 mL 3 06/29/19 24 Active Famotidine 20 MG Oral Tablet (Pepcid)Indicati ons:Gastroesopha geal reflux disease with esophagitis, unspecified whether hemorrhage Take 1 Tablet by mouth in the morning and 1 Tablet before bedtime. 180 Tablet 3 07/04/19 24 Active EPINEPHrine 0.3 MG/0.3ML Injection Solution Auto-injector (Autoinjector) 0.3 mg. 08/09/19 24 Active Mometasone Furoate 0.1 % External Ointment Apply topically to affected area 2 times a day. For two weeks. 45 g 1 08/28/19 24 Active Atorvastatin Calcium 40 MG Oral Tablet (Lipitor)Indicat ions:Dyslipidemi a, goal LDL below 100 Take 1 tablet by mouth once daily 90 Tablet 3 01/21/20 24 Active glipiZIDE 5 MG Oral Tablet (Glucotrol) Take 1/2 (one-half) tablet by mouth once daily 45 Tablet 1 02/08/20 24 Active amLODIPine Besylate 10 MG Oral Tablet (Norvasc)Indicat ions:HTN, goal below 130/80 Take 1 tablet by mouth once daily 90 Tablet 3 02/26/20 24 Active Atenolol 25 MG Oral Tablet (Tenormin)Indica tions:HTN, goal below 130/80 Take 1 tablet by mouth once daily 90 Tablet 1 03/04/20 24 Active metFORMIN HCl ER 500 MG Oral Tablet Extended Release 24 Hour (Glucophage XR)Indications:T ype 2 diabetes mellitus with hemoglobin A1c goal of less than 7.0% (HCC) Take 1 tablet by mouth once daily 90 Tablet 3 03/08/20 24 Active Brinzolamide 1 % Ophthalmic Suspension (Azopt) Instill 1 Drop into both eyes in the morning and 1 Drop before bedtime. 10 mL 11 03/28/20 24 Active Additional Information Patient not taking.Reported on 04/15/2024 Dorzolamide HCl-Timolol Mal 2-0.5 % Ophthalmic Solution (Cosopt Ocumeter Plus) Instill 1 Drop into both eyes in the morning and 1 Drop before bedtime. 30 mL 3 04/15/19 25 2025 Active prednisoLONE Acetate 1 % Ophthalmic Suspension (Pred Forte) Instill 1 Drop into the left eye 6 times a day. To begin after eye surgery 10 mL 1 12/12/19 24 2024 Discontinued documented as of this encounter (statuses as of 04/15/2024) Active Problems Problem Noted Date Diagnosed Date [...] as of this encounter (statuses as of 04/15/2024) Resolved Problems Problem Noted Date Diagnosed Date [...] as of this encounter (statuses as of 04/15/2024) Immunizations Name Administration Dates Next Due COVID-19 [...] AM EDT documented as of this encounter Patient Instructions * Patient Instructions* Carolina Ramirez MD - 04/15/2024 3:23 PM EST BOTH EYES NEW COMBINATION DROP: Blue cap (Cosopt/Dorzolamide-Timolol): use one drop in both eyes 2 times a day -- start using this after you run out of Combigan & Stop Dorzolamide. White cap (Netarsudil-Latanoprost/Rocklatan): use one drop in both eyes eyes at bedtime -- stop using when finished with all bottles. documented in this encounter Progress Notes * Carolina Ramirez MD - 04/15/2024 10:08 AM EST Post operative visit - Ahmed seton with corneal patch graft OS Diagnosis: Neovascular glaucoma of left eye, moderate stage Surgery Date: 12/18/23 Target IOP: teens-low 20s Subjective: Stephanie Mccauley is a 73 year old patient who is post-op week 17 s/p Ahmed seton implantwith corneal patch graft, left eye (12/18/23). Vision stable. Objective: F/u Date [facility] IOP Pre-op 12/12/23 20/150-1 20/100-2 45 Day 1 12/19/23 20/200 20/100+1 09 Week 1 12/27/23 20/250 20/150 08 Week 4 01/17/24 20/150-1 20/100-1+2 12 Week 8 02/14/24 20/150 20/100 24 Week 17 04/15/24 20/80-2 NI 18 Conjunctiva: patch graft intact, covered with conjunctiva, sutures intact Cornea: clear AC: deep and quiet - tube in good position behind iris Iris/lens: iris normal, PCIOL in good position Fundus: flat Assessment/Plan: # [id number] s/p Ahmed seton implant with corneal patch graft, left eye (12/18/23) Doing well, patch graft well covered and tube in good position Ok to watch in mid-upper 20s range Discussed post-op care and red eye precautions with patient Due to insurance change/cost will transition from Combigan to Cosopt. Has 3-4 months left of Rocklatan, will continue until that runs out. If IOP is > mid 20's off Rocklatan, we can add PGA if ok by Retina Return for 8 months IOP check. Happy to review her chart or see her sooner as needed. AVEL Rollins scribing for and in the presence of Dr. Carolina Alejandra MD. 04/15/2024. This note is prepared by AVEL Rollins acting as a scribe for me. The scribe's documentation has been prepared under my direction and personally reviewed by me in its entirety. I confirm that the note above accurately reflects all work, treatment, procedures and medical decision making performed by me. Carolina Alejandra MD Final eye medication list BOTH EYES Blue cap (Cosopt/Dorzolamide-Timolol): use one drop in both eyes 2 times a day -- start using afteryou run out of Combigan. Stop Dorzolamide. White cap (Netarsudil-Latanoprost/Rocklatan): use one drop in both eyes eyes at bedtime documented in this encounter Nursing Notes * Tiffani Martin, PING - 04/15/2024 2:39 PM EST Stephanie Mccauley presents for 12 week f/u po Ahmed seton with corneal patch graft OS. Last Visit: 02/14/2024 (in office), Visit date not found (telemedicine) She currently states no change in vision, denies eye pain, vision is clear. Current Ophthalmic Medications: Combigan BID OU Dorzolamide BID OU Rocklatan QHS OU Vision and IOP by air tonometry if done can be found in the ophth exam. documented in this encounter Plan of Treatment Upcoming Encounters Date Type Department Care Team (Late st Contact Info) Description 04/17/2024 10:30 AM EST Office Visit Ophthalmology, [facility] [address] [place] [address] Nitish Crooks, DO [address] [place] [address] 04/21/2024 6:10 PM EST Pharmacy Pharmacy, [facility] 132 [facility] [place] [address] [address] [facility] [address] [place] [address] 05/01/2024 9:00 AM EST Office Visit Allergy/Immunology [facility] [address] [place] [address] [address] Myron Jones MD [address] [place] [address] 07/08/2024 1:00 PM EDT Office Visit Family Practice [facility] [address] [place] [address] Ghislaine Hernandez, DO [address] [place] [address] 08/11/2024 2:00 PM EDT Office Visit Nephrology, [facility] [address] [place] [address] [address] Krystal Pond MD [address] [place] [address] 09/10/2024 1:00 PM EDT Office Visit Family Practice [facility] [address] [place] [address] Ghislaine Hernandez DO [address] [place] [address] 10/01/2024 10:00 AM EDT Imaging Radiology [facility] 1st [facility] [address] [place] [address] Scheduled Procedures Name Priority Associated Diagnoses Date/Ti me COLONOSCOPY FLEXIBLE PROXIMA L DIAGNOSTIC Recall Encounter for screening colonoscopy Health Maintenance Due Date Last Done Comments Cologuard 08/16/1996 Sigmoidoscopy 08/16/1996 Zoster Vaccines (3 of 3) 01/26/2019 12/01/2018, 12/09 Adult Wellness Visit 06/22/2020 06/23/2019 Diabetic Eye Exam 11/14/2023 11/13/2022, , 11/13/2022, Additional history exists COVID-19 Vaccine ( season) 2023 09/03/2020, 08/13/2020 Fecal Occult Blood Test 04/11/2024 04/11/2023, 10/05 DXA Scan 04/30/2024 04/30/2017 CKD PHOS USE SMARTSET 49279 07/03/202406/08, 07/11/2022, 06/14/2021, Additional history exists Diabetic [...] Additional history exists CKD HGB USE SMARTSET 33621 01/17/202501/17, 01/18/2024, 08/14/2023, Additional history exists Colonoscopy 12/07/2027 12/06/2017, 11/09, [...] this encounter Medical Devices Implanted Type Area Gas Meter Prover Device Identifier Shelf Expiration Date Model / Serial / Lot Shunt Tube Glaucoma Ahmed Fp7 - [id number] - [id number] Implanted:Qty: 1 on 11/17/2022 by Carolina Ramirez MD at [facility] Right: Eye [employer] [id number] 09/17/2024 TRACY / [id number] / [id number] Graft [place] Cornea Split - [id number] Implanted:Qty: 1 on 11/17/2022 by Carolina Ramirez MD at [facility] Right: Eye [employer] 09/11/2024 O-1 / [id number] / [id number] Shunt Tube Glaucoma Ahmed Fp7 - [id number] Implanted:Qty: 1 on 12/18/2023 by Carolina Ramirez MD at [facility] Left: Eye [employer] [id number] 10/24/2025 7 / [id number] / [id number] Graft [place] Cornea Split - [id number] Implanted:Qty: 1 on 12/18/2023 by Carolina Ramirez MD at [facility] Left: Eye [employer] 10/21/2025 O-1 / [id number] / [id number] documented as of this encounter Visit Diagnoses Diagnosis Neovascular glaucoma of left eye, moderate stage- Primary Screening mammogram for breast cancer documented [...] and were consensually agreed upon. Care Teams Director Client Services Relationship Specialty Start Date End Date Ghislaine Hernandez DO [address] [place] [address] PCP - General Family Medicine 07/09/14 documented as of this encounter
--- OUTSIDE RECORDS SUMMARY | 2024-08-15 19:06 | External Medical Summary | Summary of Care ---
Author Name Unknown Organization [facility] [address] [place] [address] Phone [phone] Care Team Providers Care Marine Fireman Name Role Phone Ghislaine Hernandez Primary Care Provider [phone] Reason for Visit * Reason Onset Date Comments Precert Approved 03/31/2024 Encounter Details Date Type Department Care Team (Late st Contact Info) Description 03/31/2024 Telephone [facility] [address] [place], [place] [id number] Carolina Ramirez MD [address] [place], [place] [id number] Precert Approved Allergies Active Allergy Reactions Criticality Noted Date Comments Bee Venom Edema airway,Edema Other High 01/15/2014 Eye swelled shut Ciprofloxacin Other (Please comment) Medium 11/24/2016 Trouble breathing, nausea Furosemide Rash 08/02/2023 Lisinopril High 08/14/2023 angioedema Nitrofurantoin 11/08/2018 vomiting Sulfa Antibiotics Hives,Other (Please comment) 01/15/2014 Boil/Acne like sores on abdomen documented as of this encounter (statuses as of 04/08/2024) Medications Aspirin 81 MG Tablet Take 1 [...] the evening. 30 mL 3 4 Active Additional Information Patient not taking.Reported on 03/11/2024 Rocklatan 0.02-0.005 % Ophthalmic Solution (Netarsudil-Latan oprost) [...] two weeks. 45 g 1 4 Active prednisoLONE Acetate 1 % Ophthalmic Suspension (Pred Forte) Instill 1 Drop into the left eye 6 times a day. To begin after eye surgery 10 mL 1 4 Active Additional Information Patient not taking.Reported on 02/14/2024 Atorvastatin Calcium 40 MG Oral Tablet (Lipitor)Indicati [...] Drop before bedtime. 10 mL 11 4 Active documented as of this encounter (statuses as of 04/08/2024) Active Problems Problem Noted Date Diagnosed Date [...] as of this encounter (statuses as of 04/08/2024) Resolved Problems Problem Noted Date Diagnosed Date [...] as of this encounter (statuses as of 04/08/2024) Immunizations Name Administration Dates Next Due COVID-19 mRNA, LNP-s, No Pre serve, 2-Dose Series (BitPay) 09/03/2020,08/13/2020 Pneumococcal Conjugate Vacc, 13 Valent (Prevnar) [...] encounter Miscellaneous Notes * Telephone Encounter - Cielo Amin OSA - 03/31/2024 10:39 AM EST Ophthalmology - Antibiotic, Antibiotic-Steroid Combination, Anti-inflammatory Ophthalmic Glaucoma Agent, Immunomodulator, or other agent - Pre-Certification Request Prescribing Provider: Carolina Camejo Diagnosis & ICD 10 Code: 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 Rocklatan, acetazolamide, dorzolamide, timolol, travoprost [place] Free, List documentation to failure/intolerance/contraindication: patient has been on brinzolamide and has controlled pressures [place] [id number] documented in this encounter Plan of Treatment Upcoming Encounters Date Type Department Care Team (Late st Contact Info) Description 04/15/2024 2:00 PM EST Office Visit [facility] [address] [place] [address] Carolina Ramirez MD [address] [place] [address] 04/17/2024 10:30 AM EST Office Visit Ophthalmology, [facility] [address] [facility] [place] [address] Nitish Crooks DO 132 [facility] [place] [address] 04/21/2024 6:10 PM EST Pharmacy Pharmacy, [facility] [address] [place] [address] [address] [facility] [address] [place] [address] 05/01/2024 9:00 AM EST Office Visit Allergy/Immunology [facility] [address] [place] [address] Myron Jones MD [address] [place] [address] 07/08/2024 1:00 PM EDT Office Visit Family Practice [facility] [address] [place] [address] Ghislaine Hernandez, DO [address] [place] [address] 08/11/2024 2:00 PM EDT Office Visit Nephrology, [facility] [address] [place] [address] Krystal Pond MD 200 [facility] [place] [address] 09/10/2024 1:00 PM EDT Office Visit Family Practice [facility] [address] [place] [address] Ghislaine Hernandez, DO [address] [place] [address] 10/01/2024 10:00 AM EDT [facility] [address] [place] [address] Scheduled Procedures Name Priority Associated Diagnoses Date/Ti [...] Scan 04/30/2024 04/30/2017 CKD PHOS USE SMARTSET 13602 07/03/20242 10/2023, 07/11/2022, 06/14/2021, Additional history exists [...] Additional history exists CKD HGB USE SMARTSET 08219 01/17/202501/17, 01/18/2024, 08/14/2023, Additional history exists Colonoscopy [...] this encounter Medical Devices Implanted Type Area Rubber Boots And Shoes Repairer Device Identifier Shelf Expiration Date Model / Serial / Lot Shunt Tube Glaucoma Ahmed Fp7 - [id number] - [id number] Implanted:Qty: 1 on 11/17/2022 by Carolina Ramirez MD at [facility] Right: Eye [employer] [id number] 09/17/2024 FP7 / [id number] / [id number] Graft [place] Cornea Split - [id number] Implanted:Qty: 1 on 11/17/2022 by Carolina Ramirez MD at [facility] Right: Eye [employer] 09/11/2024 HCO-1 / [id number] / [id number] Shunt Tube Glaucoma Ahmed Fp7 - [id number] Implanted:Qty: 1 on 12/18/2023 by Carolina Ramirez MD at OR [facility] Left: Eye [employer] [id number] 10/24/2025 FP7 / [id number] / [id number] Graft [place] Cornea Split - [id number] Implanted:Qty: 1 on 12/18/2023 by Carolina Ramirez MD at [facility] Left: Eye [employer] 10/21/2025 O-1 / [id number] / [id number] documented as of this encounter Advance [...] and were consensually agreed upon. Care Teams Marine Fireman Relationship Specialty Start Date End Date Ghislaine Hernandez DO [address] [place] [address] PCP - General Family Medicine 07/09/14 documented as of this encounter
--- OUTSIDE RECORDS SUMMARY | 2024-08-15 19:06 | External Medical Summary | Summary of Care ---
Author Name Unknown Organization [facility] Address [address] [place] [address] Phone [phone] Care Team Providers Care Application Security Engineer Name Role Phone Joseph Navarro DO Primary Care Provider [phone] Reason for Visit * Reason Comments eRx-Medication Refill Encounter Details Date Type Department Care Team (Late st Contact Info) Description 04/25/2024 Refill Family Practice [facility] [address] [facility] [place] [address] Joseph Navarro, [address] [facility] [place] [address] Folic acid deficiency Allergies Active Allergy Reactions Criticality Noted Date Comments Bee Venom Edema airway,Edema Other High 01/15/2014 Eye swelled shut Ciprofloxacin Other (Please comment) Medium 11/24/2016 Trouble breathing, nausea Furosemide Rash 08/02/2023 Lisinopril High 08/14/2023 angioedema Nitrofurantoin 11/08/2018 vomiting Sulfa Antibiotics Hives,Other (Please comment) 01/15/2014 Boil/Acne like sores on abdomen documented as of this encounter (statuses as of 04/25/2024) Medications Aspirin 81 MG Tablet Take 1 Tablet by mouth in the morning. 90 Tab 09/05/19 18 Active cholecalciferol, VIT D3, (VITAMIN D3) 1000 UNITS Tablet Take 1 Tablet by mouth in the morning. 04/17/19 20 Active OneTouch Ultra Blue In Vitro Strip (Glucose Blood)Indications :Type 2 diabetes mellitus with hemoglobin A1c goal of less than 7.0% ([facility]) Use to test blood sugar once daily 100 Strip 11 06/12/19 21 Active Zoster Vac Recomb Adjuvanted 50 MCG/0.5ML Intramuscular Suspension Reconstituted (Shingrix)Indicat ions:Need for vaccination for zoster Inject 0.5 mL into a large muscle now and repeat dose in 60 to 180 days 1 Each 1 06/29/19 23 Active Dorzolamide HCl 2 % Ophthalmic Solution (Trusopt Ocumeter Plus) Instill 1 Drop into both eyes in the morning and 1 Drop in the evening. 30 mL 3 04/19/19 24 Active Rocklatan 0.02-0.005 % Ophthalmic Solution (Netarsudil-Latan oprost) Instill 1 Drop into both eyes every evening. 7.5 mL 3 04/19/19 24 Active Brimonidine Tartrate-Timolol 0.2-0.5 % [...] 24 Active Atenolol 25 MG Oral Tablet (Tenormin)Indicat [...] MORNING 30 Tablet 11 04/25/19 25 Active Folic Acid 1 MG Oral TabletIndications :Folic acid deficiency Take 1 Tablet by mouth in the morning. 30 Tablet 11 04/03/20 23 025 Discontinued documented as of this encounter (statuses as of 04/25/2024) Active Problems Problem Noted Date Diagnosed Date [...] as of this encounter (statuses as of 04/25/2024) Resolved Problems Problem Noted Date Diagnosed Date [...] as of this encounter (statuses as of 04/25/2024) Immunizations Name Administration Dates Next Due COVID-19 [...] No 11/16/2022 Does the household have a [facility] source of income? (Household - for ages [...] encounter Miscellaneous Notes * Telephone Encounter - Viola Perez [facility] - 04/25/2024 12:04 PM EST Signed Prescriptions: Disp Refills Folic Acid 1 MG Oral Tablet 30 Tab*11 Sig: TAKE 1 TABLET BY MOUTH IN THE MORNINGAuthorizing Provider: JOSEPH NAVARRO User: VIOLA PEREZ--------- documented in this encounter Plan of Treatment Upcoming Encounters Date Type Department Care Team (Late st Contact Info) Description 05/28/2024 1:15 PM EST Office Visit Ophthalmology, [facility] [address] [place] [address] Nitish Crooks, DO [address] [place] [address] 07/08/2024 1:00 PM EDT Office Visit [facility] [address] [place] [address] Joseph Navarro, DO [address] [place] [address] 08/11/2024 2:00 PM EDT Office Visit Nephrology, [facility] [address] [place] [address] Krystal Pond MD [address] [place], [place] [address] 09/10/2024 1:00 PM EDT Office Visit [facility] [address] [place] [address] Joseph Navarro, DO [address] [place] [address] 10/01/2024 10:00 AM EDT Imaging Radiology [facility] 1st [facility] [place] [address] [place] [address] 01/02/2025 3:00 PM EDT Office Visit [facility] 16 [facility] [place] [address] Carolina Ramirez MD 16 [facility] [place] [address] Scheduled Procedures Name Priority Associated Diagnoses Date/Ti [...] Scan 04/30/2024 04/30/2017 CKD PHOS USE SMARTSET 43144 07/03/202406/08, 07/11/2022, 06/14/2021, Additional history exists Diabetic [...] Additional history exists CKD HGB USE SMARTSET 58615 01/17/202501/17, 01/18/2024, 08/14/2023, Additional history exists Diabetic [...] this encounter Medical Devices Implanted Type Area Blender Conveyor Operator Device Identifier Shelf Expiration Date Model / Serial / Lot Shunt Tube Glaucoma Ahmed Fp7 - [id number] - [id number] Implanted:Qty: 1 on 11/17/2022 by Carolina Ramirez MD at [facility] Right: Eye [employer] [id number] 09/17/2024 FP7 / [id number] / [id number] Graft [place] Cornea Split - [id number] Implanted:Qty: 1 on 11/17/2022 by Carolina Ramirez MD at OR [facility] Right: Eye [employer] 09/11/2024 HCO-HH1 / [id number] / [id number] Shunt Tube Glaucoma Ahmed Fp7 - [id number] Implanted:Qty: 1 on 12/18/2023 by Carolina Ramirez MD at [facility] Left: Eye [employer] [id number] 10/24/2025 [facility] / [id number] / [id number] Graft [place] Cornea Split - [id number] Implanted:Qty: 1 on 12/18/2023 by Carolina Ramirez MD at OR [facility] Left: Eye [employer] 10/21/2025 O-HH1 / [id number] / [id number] documented as of this encounter Visit Diagnoses Diagnosis Folic acid deficiency Other B-complex deficiencies Screening mammogram for breast cancer documented in [...] were consensually agreed upon. Care Teams Application Security Engineer Relationship Specialty Start Date End Date Joseph Navarro DO [address] [place] [address] PCP - General Family Medicine 07/09/14 documented as of this encounter
--- OUTSIDE RECORDS SUMMARY | 2024-08-15 19:06 | External Medical Summary | Summary of Care ---
Author Name Unknown Organization [facility] Address [address] [place] [address] Phone [phone] Care Team Providers Care Appeals Manager Name Role Phone Joseph Navarro DO Primary Care Provider [phone] Reason for Visit * Reason Comments eRx-Medication Refill Encounter Details Date Type Department Care Team (Late st Contact Info) Description 07/22/2024 Refill Family Practice [facility] [address] [facility] [place] [address] Joseph Navarro DO [address] [place] [address] Allergies Active Allergy Reactions Criticality Noted Date Comments Bee Venom Edema airway,Edema Other High 01/15/2014 Eye swelled shut Ciprofloxacin Other (Please comment) Medium 11/24/2016 Trouble breathing, nausea Furosemide Rash 08/02/2023 Lisinopril High 08/14/2023 angioedema Nitrofurantoin 11/08/2018 vomiting Sulfa Antibiotics Hives,Other (Please comment) 01/15/2014 Boil/Acne like sores on abdomen documented as of this encounter (statuses as of 07/23/2024) Medications Aspirin 81 MG Tablet Take 1 Tablet by mouth in the morning. 90 Tab 09/05/19 18 Active cholecalciferol, VIT D3, (VITAMIN D3) 1000 UNITS Tablet Take 1 Tablet by mouth in the morning. 04/17/19 20 Active OneTouch Ultra Blue In Vitro Strip (Glucose Blood)Indications :Type 2 diabetes mellitus with hemoglobin A1c goal of less than 7.0% ([facility]) Use to test blood sugar once daily [...] goal of less than 7.0% ([facility]) Take 1 tablet by mouth once daily [...] EYES IN THE MORNING AND BEFORE BEDTIME. 04/04/20 25 Active glipiZIDE 5 MG Oral Tablet (Glucotrol) Take 1/2 (one-half) tablet by mouth once daily 45 Tablet 1 07/24/19 25 Active glipiZIDE 5 MG Oral Tablet (Glucotrol) Take 1/2 (one-half) tablet by mouth once daily 45 Tablet 1 02/08/20 24 025 Discontinued Hospital, Clinic, or Other [...] as of this encounter (statuses as of 07/23/2024) Active Problems Problem Noted Date Diagnosed Date [...] as of this encounter (statuses as of 07/23/2024) Resolved Problems Problem Noted Date Diagnosed Date [...] as of this encounter (statuses as of 07/23/2024) Immunizations Name Administration Dates Next Due COVID-19 [...] Notes * Telephone Encounter - Eben Hall [facility] - 07/23/2024 12:41 PM EDT Signed Prescriptions: Disp Refills glipiZIDE 5 MG Oral Tablet (Glucotrol) 45 Tab*1 Sig: Take 1/2 (one-half) tablet by mouth once dailyAuthorizing Provider: JOSEPH NAVARRO User: EBEN HALL documented in this encounter Plan of Treatment Upcoming Encounters Date Type Department Care Team (Late st Contact Info) Description 07/29/2024 9:00 AM EDT Office Visit Nephrology, [facility] [address] [place] [address] Krystal Pond MD [address] [place] [address] 09/02/2024 1:20 PM EDT Office Visit [facility] [address] [place] [address] Joseph Navarro, [address] [place] [address] 09/10/2024 1:00 PM EDT Office Visit [facility] [address] [address] Joseph Navarro, [address] [place] [address] 09/25/2024 9:45 AM EDT Office Visit Ophthalmology, [facility] [address] [place] [phone] Nitish Crooks DO [address] [place] [address] Christian Nurse Jarod Nubia [address] [place] [address] Photographer Nubia Gonzales [address] [place] [address] 10/01/2024 10:00 AM EDT Imaging Radiology [facility] [address] [place] [phone] 01/02/2025 3:00 PM EDT Office Visit [facility] Eye [facility] [address] [place] [address] Carolina Ramirez MD [address] [place] [address] Scheduled Procedures Name Priority Associated Diagnoses Date/Ti [...] Scan 04/30/2024 04/30/2017 CKD PHOS USE SMARTSET 47762 07/03/202406/08, 07/11/2022, 06/14/2021, Additional history exists Diabetic [...] Additional history exists CKD HGB USE SMARTSET 95072 01/17/202501/17, 01/18/2024, 08/14/2023, Additional history exists Diabetic [...] this encounter Medical Devices Implanted Type Area Director Property Device Identifier Shelf Expiration Date Model / Serial / Lot Shunt Tube Glaucoma Ahmed Fp7 - [id number] - [id number] Implanted:Qty: 1 on 11/17/2022 by Carolina Ramirez MD at [facility] Right: Eye [employer] [id number] 09/17/2024 FP7 / [id number] / [id number] Graft [place] Cornea Split - [id number] Implanted:Qty: 1 on 11/17/2022 by Carolina Ramirez MD at [facility] Right: Eye [employer] 09/11/2024 O-1 / [id number] / [id number] Shunt Tube Glaucoma Ahmed Fp7 - [id number] Implanted:Qty: 1 on 12/18/2023 by Carolina Ramirez MD at [facility] Left: Eye [employer] [id number] 10/24/2025 FP7 / [id number] / [id number] Graft [place] Cornea Split - [id number] Implanted:Qty: 1 on 12/18/2023 by Carolina Ramirez MD at [facility] Left: Eye [employer] 10/21/2025 HCO-1 / [id number] / [id number] documented as of this encounter Advance [...] and were consensually agreed upon. Care Teams Appeals Manager Relationship Specialty Start Date End Date Joseph Navarro DO [address] [place] [address] PCP - General Family Medicine 07/09/14 documented as of this encounter
--- OUTSIDE RECORDS SUMMARY | 2024-08-15 19:06 | External Medical Summary | Summary of Care ---
Author Name Unknown Organization [facility] Address [address] [place] [address] Phone [phone] Care Team Providers Care Hand Clipper Name Role Phone NathanielGhislaine alcantar Amita PUGH Primary Care Provider [phone] Reason for Visit * Reason Comments Follow Up * Precert (Within 10 days (routine)) - Authorized Specialty Diagnoses / Procedures Referred By Tristian hammonds Referred To Contact Ophthalmology Diagnoses Type 2 diabetes mellitus with moderate nonproliferative diabetic retinopathy with macular edema, right eye (HCC) Procedures WA INJECTION, FARICIMAB-SVOA, 0.1 MG INJECTION OF EYE DRUG Nitish Crooks DO Phone: tel: fax: Ophthalmology, [facility] [address] [place] [address] Phone: tel: fax: Referral ID Status Reason Start Date Expiration Date V isits Requested Visits Authorized [id number] Authorized Precert 04/27/2022 04/08/[phone] Encounter Details Date Type Department Care Team (Late st Contact Info) Description 07/17/2024 1:30 PM EDT Office Visit Ophthalmology, [facility] [address] [place] [address] Nitish Crooks DO [address] [place] [address] Nurse Jarod Gonzales [address] [place] [address] Photographer Nubia Gonzales [address] [place] [address] 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, unspecified proliferative retinopathy type ([facility])* Allergies Active Allergy Reactions Criticality Noted Date Comments Bee Venom Edema airway,Edema Other High 01/15/2014 Eye swelled shut Ciprofloxacin Other (Please comment) Medium 11/24/2016 Trouble breathing, nausea Furosemide Rash 08/02/2023 Lisinopril High 08/14/2023 angioedema Nitrofurantoin 11/08/2018 vomiting Sulfa Antibiotics Hives,Other (Please comment) 01/15/2014 Boil/Acne like sores on abdomen documented as of this encounter (statuses as of 07/17/2024) Medications Aspirin 81 MG Tablet Take 1 Tablet by mouth in the morning. 90 Tab 09/05/19 18 Active cholecalciferol, VIT D3, (VITAMIN D3) 1000 UNITS Tablet Take 1 Tablet by mouth in the morning. 04/17/19 20 Active OneTouch Ultra Blue In Vitro Strip (Glucose Blood)Indications :Type 2 diabetes mellitus with hemoglobin A1c goal of less than 7.0% ([facility]) Use to test blood sugar once [...] MG/0.3ML Injection Solution Auto-injector (Autoinjector) 0.3 mg. 05/02/20 24 Active Atorvastatin Calcium 40 MG Oral [...] MORNING AND BEFORE BEDTIME. 07/12/19 25 Active Dorzolamide HCl 2 % Ophthalmic Solution (Trusopt Ocumeter Plus) Instill 1 Drop into both eyes in the morning and 1 Drop in the evening. 30 mL 3 04/19/19 24 025 Discontinued Brimonidine Tartrate-Timolol 0.2-0.5 % Ophthalmic Solution (Combigan) Instill 1 Drop into both eyes in the morning and 1 Drop before bedtime. 30 mL 3 06/29/19 24 025 Discontinued Hospital, Clinic, or Other Facility Administered Medication Ordered Dose Route Frequency Start Date End Date Status Leslie-svoa (Vabysmo) prefilled syringe inj 6 mgIndications:Proliferative diabetic [...] as of this encounter (statuses as of 07/17/2024) Active Problems Problem Noted Date Diagnosed Date [...] as of this encounter (statuses as of 07/17/2024) Resolved Problems Problem Noted Date Diagnosed Date [...] as of this encounter (statuses as of 07/17/2024) Immunizations Name Administration Dates Next Due COVID-19 mRNA, LNP-s, No Pre serve, 2-Dose Series (OnApp) 09/03/2020,08/13/2020 Pneumococcal Conjugate Vacc, 13 Valent (Prevnar) [...] of this encounter Progress Notes * Nitish Crooks DO - 07/17/2024 1:30 PM EDT [facility] [place] Nursing Notes: Estrella Cervantes TECH 07/17/24 1342 Signed Stephanie Mccauley is a 73 year old year old female who presents for PDR OU. Last Office Visit: Visit date not found (in office), Visit date not found (telemedicine) Patient currently states right eye might be slightly worse since last appt. Are you diabetic? Yes. Do you check your blood sugars daily? YES. Did not measure this morning. Last Hemoglobin A1C: Lab Results Component Value [...] - Linear) Right Left Dist sc 20/100 20/150 -2 Dist ph sc 20/80 20/100 -1 Letters look "all fernandez" OD Tonometry (Tonopen, 1:41 PM) Right Left Pressure 14 15 Pupils Dark Shape React APD Right 4.5 Round none None Left 4.5 Round none None Visual Herman (Counting fingers) Right Left Restrictions Partial outer superior temporal, inferior temporal, inferior nasal deficiencies Partial outer superior nasal, inferior nasal deficiencies Extraocular Movement Right Left Full Full Neuro/Psych Oriented x3: Yes Mood/Affect: Normal Dilation Both eyes: 0.5% Proparacaine @ 1:39 PM Dilation #2 Both eyes: 1.0% Mydriacyl, 2.5% Phenylephrine @ 1:39 PM Dilation Comments Patient cautioned that effects of dilation may last 2-7 hours dependant upon individual reaction. It was discussed that driving while dilated is not recommended. EXTERNAL: The ocular adnexae are unremarkable. SLE: Lids/Lashes: wnl OU Conjunctiva/Sclera: Ahmed ST OU Cornea: clear OU Anterior Chamber: tube OD; deep and quiet OU Iris: regressed NVI OD; +NVI OS--improved Lens: PCIOL OU, s/p yag cap OU GONIOSCOPY: 12/04/2023: OD: mostly closed, NVA x 360--resolved OS: angle partially closed, +NVA--WORSE Dilated fundus exam OD: vitreous: clear optic nerve: 0.3, no edema/pallor/NVD macula: no CIDME, +head of data vessels: wnl midperiphery: +head of data periphery: PRP, no RT/RD Dilated fundus exam OS: vitreous: clear optic nerve: 0.3, no edema/pallor/NVD macula: no CIDME, +head of data vessels: wnl midperiphery: +head of data periphery: PRP, no RT/RD OCT Interpretation: OD: +DME, no srfluid, no PVD -STABLE, prior improved 178um prior worse 271um prior no sig change, prior STABLE, prior improved 106um, prior worse 72um, prior improved 28um prior worse 54um prior improved 35um, prior mildy worse, prior improved, prior STABLE OS: no sig DME, no srlfuid, no PVD -STABLE, prior stable, prior no sig change, prior STABLE, prior STABLE, prior STABLE OCTA Interpretation: 07/31/2023 OD: capillary nonperfusion OS: capillary nonperfusion A/P: 1. Proliferative diabetic retinopathy OU -++DME OU on presentation OD: -s/p Triesence OD 12/25/14--great response -s/p ILUVIEN OD (07/29/15) -s/p FML/micropulse 01/03/17 -s/p Triesence (08-18-16) -s/p Eylea OD (10/31/21, 08/15/21, 06/08/21, 04/22/21, 02-15-21, 01-03-21, 11-11-20, 21, 21, 21, 20, 20, 20, 20, 20, 20, 03-27-19, 19, 19, 19, 19, 19, 19, 18, 10-05-2017, 05/15/17, 01-18-17, 10-31-16, 07/06/16, 05-25-17, 02/03/16, 10/22/15, 09/09/15..., 05/19/15, 03/18/15, 11/11/14, 10/15/14, 09/15/14) -Vabysmo OD 03/11/24, 11/02/22--NVI/NVA, 04/20/22, 01/27/22 -went 10 months -s/p PRP 01/31/23, 01/03/23 -Vabysmo 03/11/24, 09/11/2023 -worsening DME -18 weeks; worse at 26 weeks OS: -s/p Triescence OS 02/04/15--great response -s/p ILUVIEN OS (05/13/15) -s/p PRP 01/24/23 -s/p Eylea OS (12/10/21, 09/23/21, 07/08/21, 03/21/21, 01-24-, 12-09-20, 10-28-20, 09-09-20, 07-22-, 06-01-20, 02-10-, 12-02-20, 20, 20, 07-01-19, 05-06-19, 03-19-19, 02-05-19, 12-18-18, 10-24-18, 08-15-18, 07-03-18, 04-18-18, 12-04-17, 06-26-2017, 03-29-17, 12/07/16, 08-03-16, 04/20/16, 01/06/16, 09/24/15, 04/29/15, 01/07/15, 11/26/14, 10/29/14, 09/24/14) -Vabysmo OS 05/28/24, 12/04/23-recurrent NVI/NVA , 03/28/23, 11/08/22--NVI, 06/01/22, 03/09/2022 - 7 weeks, has gone 5 months, went 8 months s/p Ahmed seton implant with corneal patch graft, left eye (12/18/23) -recommend HgbA1C <7, BP and lipid control. 2. Neovascular Glaucoma OU -s/p Ahmed OD--Dr. Camejo -s/p COURTESY BOOTH CASHIER OD 10/30/23--Dr. Camejo Final eye medication list BOTH EYES Cosopt bid OU Rocklatan at bedtime OU (insurance no longer covering but has 4 month supply still, then transitionto PGA) 3. Myopia OU -(-3.50D) -no myopic retinopathy 4. Pseudophakia OU -stable, by Dr. Haile -does not drive f/u 6-8 weeks, OCT OU Nitish Crooks DO CC: Dr. Camejo CC: Palmer Haile DO PCP: Ghislaine Hernandez DO _ documented in this encounter Nursing Notes * Estrella Cervantes TECH - 07/17/2024 1:33 PM EDT Stephanie Mcaculey is a 73 year old year old female who presents for PDR OU. Last Office Visit: Visit date not found (in office), Visit date not found (telemedicine) Patient currently states right eye might be slightly worse since last appt. Are you diabetic? Yes. Do you check your blood sugars daily? YES. Did not measure this morning. Last Hemoglobin A1C: Lab Results Component Value [...] Visit Nephrology, [facility] Carney [address] [place] [address] Krystal Pond MD [address] [place] [address] 09/02/2024 1:20 PM EDT Office Visit [facility] [address] [place] [address] Ghislaine Hernandez DO [address] [address] 09/10/2024 1:00 PM EDT Office Visit [facility] [address] [place] [address] Ghislaine Hernandez, DO [address] [place] [address] 09/25/2024 9:45 AM EDT Office Visit Ophthalmology, [facility] [address] [place] [address] Nitish Crooks, DO [address] [place] [address] Christian Nurse Jarod [facility] [address] [place] [address] Christian Fruit Picker Machine Operator [facility] [address] [place] [address] 10/01/2024 10:00 AM EDT Imaging Radiology [address] [place] [address] 01/02/2025 3:00 PM EDT Office Visit [facility] [address] [address] Carolina Ramirez MD [address] [place] [address] Scheduled Orders Name Type Priority Associated Diagnoses Orde r Schedule RETINA SCAN DIAGNOSTIC IMAGE, POSTERIOR Procedures Routine 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, unspecified proliferative retinopathy type (HCC) Ordered: 07/17/2024 Scheduled Procedures Name Priority Associated Diagnoses Date/Ti [...] Scan 04/30/2024 04/30/2017 CKD PHOS USE SMARTSET 53915 07/03/20242 10/2023, 07/11/2022, 06/14/2021, Additional history exists [...] Additional history exists CKD HGB USE SMARTSET 56036 01/17/202501/17, 01/18/2024, 08/14/2023, Additional history exists Diabetic [...] this encounter Medical Devices Implanted Type Area Audiology Director Device Identifier Shelf Expiration Date Model / Serial / Lot Shunt Tube Glaucoma Ahmed Fp7 - [id number] - [id number] Implanted:Qty: 1 on 11/17/2022 by Carolina Ramirez MD at [facility] Right: Eye [employer] [id number] 09/17/2024 FP7 / [id number] / [id number] Graft [place] Cornea Split - [id number] Implanted:Qty: 1 on 11/17/2022 by Carolina Ramirez MD at [facility] Right: Eye [employer] 09/11/2024 [facility] / [id number] / [id number] Shunt Tube Glaucoma Ahmed Fp7 - [id number] Implanted:Qty: 1 on 12/18/2023 by Carolina Ramirez MD at [facility] Left: Eye [employer] [id number] 10/24/2025 FP7 / [id number] / [id number] Graft [place] Cornea Split - [id number] Implanted:Qty: 1 on 12/18/2023 by Carolina Ramirez MD at [facility] Left: Eye [employer] 10/21/2025 O-1 / [id number] / [id number] documented as of this encounter Visit [...] and were consensually agreed upon. Care Teams Hand Clipper Relationship Specialty Start Date End Date Ghislaine Hernandez DO [address] [place] [address] PCP - General Family Medicine 07/09/14 documented as of this encounter
--- OUTSIDE RECORDS SUMMARY | 2024-08-15 19:06 | External Medical Summary | Summary of Care ---
Author Name Unknown Organization [facility] Address [address] [place] [address] Phone [phone] Care Team Providers Care Plycor Operator Name Role Phone Joseph Hernandez DO Primary Care Provider [phone] Reason for Visit * Reason Comments eRx-Medication Refill Encounter Details Date Type Department Care Team (Late st Contact Info) Description 07/11/2024 Refill Family Practice [facility] [address] [facility] [place] [address] Joseph Hernandez, [address] [facility] [place] [address] Allergies Active Allergy Reactions Criticality Noted Date Comments Bee Venom Edema airway,Edema Other High 01/15/2014 Eye swelled shut Ciprofloxacin Other (Please comment) Medium 11/24/2016 Trouble breathing, nausea Furosemide Rash 08/02/2023 Lisinopril High 08/14/2023 angioedema Nitrofurantoin 11/08/2018 vomiting Sulfa Antibiotics Hives,Other (Please comment) 01/15/2014 Boil/Acne like sores on abdomen documented as of this encounter (statuses as of 07/14/2024) Medications Aspirin 81 MG Tablet Take 1 [...] hemoglobin A1c goal of less than 7.0% ([facility]) Take 1 tablet by mouth once daily 90 Tablet 3 03/08/20 24 Active Folic Acid 1 MG Oral TabletIndications :Folic acid deficiency TAKE 1 TABLET BY MOUTH IN THE MORNING 30 Tablet 11 04/25/19 25 Active Mometasone Furoate 0.1 % External Ointment APPLY OINTMENT TOPICALLY TO AFFECTED AREA TWICE DAILY FOR 2 WEEKS 45 g 07/15/19 25 Active Mometasone Furoate 0.1 % External Ointment Apply topically to affected area 2 times a day. For two weeks. 45 g 1 08/28/19 24 025 Discontinued Hospital, Clinic, or Other [...] as of this encounter (statuses as of 07/14/2024) Active Problems Problem Noted Date Diagnosed Date [...] as of this encounter (statuses as of 07/14/2024) Resolved Problems Problem Noted Date Diagnosed Date [...] as of this encounter (statuses as of 07/14/2024) Immunizations Name Administration Dates Next Due COVID-19 [...] encounter Miscellaneous Notes * Telephone Encounter - Joseph Hernandez DO - 07/14/2024 10:59 AM EDTSigned Prescriptions: Disp Refills Mometasone Furoate 0.1 % External Ointment 45 g 0 Sig: APPLY OINTMENT TOPICALLY TO AFFECTED AREA TWICE DAILY FOR 2 WEEKS Authorizing Provider: JOSEPH HERNANDEZ * Telephone Encounter - Amber Underwood LPN - 07/11/2024 3:49 PM EDTPending Prescriptions: Disp Refills Mometasone Furoate 0.1 % External Ointment 45 g 0 Sig: APPLY OINTMENT TOPICALLY TO AFFECTED AREA TWICE DAILY FOR 2 WEEKS * Telephone Encounter - Amber Underwood LPN - 07/11/2024 3:49 PM EDT Did you pend patient's preferred pharmacy and medication before forwarding?yes Pharmacy: [facility] [address] [address] [place] Pending Prescriptions: Disp Refills Mometasone Furoate 0.1 % External Jjbbpsyu39 g 0 Sig: APPLY OINTMENT TOPICALLY TO AFFECTED AREA TWICE DAILY FOR 2 WEEKS Last Visit: 01/16/2024 (in office), Visit date not found (telemedicine) Next Visit: 09/02/2024 If no future appointments scheduled, and last appointment is greater than a year ago, please schedule patient for a follow-up appointment Last date the medication was ordered: 08/28/23 Is this request for a controlled substance?No Urine Drug Screen:No results found. However, due to the size of the patient record, not all encounters were searched. Please check Results Review for a complete set of results. Patient Phone Numbers Labs: Lab Results Component Value Date/Time CREAT 1.2 (H) 01/18/2024 09:43 AM CREAT 1.2 (H) 09/20/2019 09:38 AM POTASSIUM 4.0 01/18/2024 09:43 AM POTASSIUM 4.7 09/20/2019 09:38 AM TSH 1.64 03/30/2023 11:46 AM LDL 68 01/18/2024 09:43 AM LDL 47 03/13/2019 10:25 AM LDL NOT APPLICABLE 03/13/2019 10:25 AM ALT 13 09/20/2019 09:37 AM HGBA1C 6.9 (H) 01/18/2024 09:43 AM HGBA1C 6.5 (H) 09/20/2019 09:37 AM * Telephone Encounter - Nereida Alexander - 07/11/2024 1:34 PM EDTPending Prescriptions: Disp Refills Mometasone Furoate 0.1 % External Ointment 45 g 0 Sig: APPLY OINTMENT TOPICALLY TO AFFECTED AREA TWICE DAILY FOR 2 WEEKS documented in this encounter Plan of Treatment Upcoming Encounters Date Type Department Care Team (Late st Contact Info) Description 07/17/2024 1:30 PM EDT Office Visit Ophthalmology, [facility] [address] [place] [address] Nitish Crooks, DO [address] [place] [address] Christian Nurse Jarod Delacruz [address] [place] [address] Photographer Nubia Gonzales [address] [place] [address] 07/29/2024 9:00 AM EDT Office Visit Nephrology, [facility] [address] [place] [address] Krystal Pond MD [address] [place] [address] 09/02/2024 1:20 PM EDT Office Visit Family Practice [facility] [address] [place] [address] Joseph Hernandez, DO [address] [place] [address] 09/10/2024 1:00 PM EDT Office Visit [facility] Practice [facility] [address] [place] [address] Joseph Hernandez, DO [address] [place] [address] 10/01/2024 10:00 AM EDT Imaging Radiology [address] [place] [address] 01/02/2025 3:00 PM EDT Office Visit [facility] [address] [facility] [place] [address] Carolina Ramirez MD [address] [facility] [place] [address] Scheduled Procedures Name Priority Associated Diagnoses Date/Ti [...] Scan 04/30/2024 04/30/2017 CKD PHOS USE SMARTSET 69448 07/03/202406/08, 07/11/2022, 06/14/2021, Additional history exists Diabetic [...] Additional history exists CKD HGB USE SMARTSET 91302 01/17/202501/17, 01/18/2024, 08/14/2023, Additional history exists Diabetic [...] this encounter Medical Devices Implanted Type Area Netezza Architect Device Identifier Shelf Expiration Date Model / Serial / Lot Shunt Tube Glaucoma Ahmed Fp7 - [id number] - [id number] Implanted:Qty: 1 on 11/17/2022 by Carolina Ramirez MD at [facility] Right: Eye [employer] [id number] 09/17/2024 FP7 / [id number] / [id number] Graft [place] Cornea Split - [id number] Implanted:Qty: 1 on 11/17/2022 by Carolina Ramirez MD at [facility] Right: Eye [employer] 09/11/2024 [facility] / [id number] / [id number] Shunt Tube Glaucoma Ahmed Fp7 - [id number] Implanted:Qty: 1 on 12/18/2023 by Carolina Ramirez MD at [facility] Left: Eye [email or web address] [id number] 10/24/2025 [facility] / [id number] / [id number] Graft [place] Cornea Split - [id number] Implanted:Qty: 1 on 12/18/2023 by Carolina Ramirez MD at [facility] Left: Eye [employer] 10/21/2025 O-1 / [id number] / [id number] documented as of this encounter Advance [...] and were consensually agreed upon. Care Teams Plycor Operator Relationship Specialty Start Date End Date Joseph Hernandez DO [address] [place] [address] PCP - General Family Medicine 07/09/14 documented as of this encounter
--- OUTSIDE RECORDS SUMMARY | 2024-08-15 19:06 | External Medical Summary | Summary of Care ---
Author Name Unknown Organization [facility] Address [address] [place] [address] Phone [phone] Care Team Providers Care Sample Preparation Supervisor Name Role Phone NathanielGhislaine alcantar Amita PUGH Primary Care Provider [phone] Reason for Visit * Reason Comments Follow Up * Precert (Within 10 days (routine)) - Authorized Specialty Diagnoses / Procedures Referred By Tristian hammonds Referred To Contact Ophthalmology Diagnoses Type 2 diabetes mellitus with moderate nonproliferative diabetic retinopathy with macular edema, right eye (HCC) Procedures NE INJECTION, FARICIMAB-SVOA, 0.1 MG INJECTION OF EYE DRUG Nitish Crooks DO Phone: tel: fax: [facility], [facility] [address] [facility] [place] [address] Phone: tel: fax: Referral ID Status Reason Start Date Expiration Date V isits Requested Visits Authorized [id number] Authorized Precert 04/27/2022 04/08/2099 [id number] Encounter Details Date Type Department Care Team (Late st Contact Info) Description 05/28/2024 1:15 PM EST Office Visit Ophthalmology, [facility] [address] [place] [address] Nitish Crooks DO 132 [facility] [place] [address] Proliferative diabetic retinopathy of both eyes associated [...] Route Frequency Start Date End Date Status [facility] (Vabysmo) prefilled syringe inj 6 mgIndications:Proliferative [...] mRNA, LNP-s, No Pre serve, 2-Dose Series (Cocodrilo Dog) 09/03/2020,08/13/2020 Pneumococcal Conjugate Vacc, 13 Valent (Prevnar) [...] Crooks, DO - 05/28/2024 1:15 PM EST [facility] [place] Nursing Notes: Porsha [...] nerve: 0.3, no edema/pallor/NVD macula: no CIDME, +professor of art history vessels: wnl midperiphery: +professor of art history periphery: PRP, no RT/RD Dilated fundus exam OS: vitreous: clear optic nerve: 0.3, no edema/pallor/NVD macula: no CIDME, +professor of art history vessels: wnl midperiphery: +professor of art history periphery: PRP, no RT/RD OCT Interpretation: OD: [...] Glaucoma OU -s/p Ahmed OD--Dr. Camejo -s/p CALCULATING MACHINE MECHANIC OD 10/30/23--Dr. Camejo Final eye medication list [...] Nitish Crooks DO Vabysmo 6mg lot # [id number] Exp. Date: 07/2025 * Porsha Adkins RN [...] 1:00 PM EDT Office Visit Family Practice [facility] [address] [place] [address] Ghislaine Hernandez, DO [address] [place] [address] 07/17/2024 1:30 PM EDT Office Visit Ophthalmology, [facility] [address] [place] [address] Nitish Crooks DO [address] [place] [address] Nurse Jarod Gonzales [address] [place] [address] Photographer Nubia Gonzales [address] [place] [address] 08/11/2024 2:00 PM EDT Office Visit Nephrology, [facility] Carney [address] [place] [address] Krystal Pond MD [address] [place] [address] 09/10/2024 1:00 PM EDT Office Visit Family Practice [facility] [address] [place] [address] Ghislaine Hernandez DO [address] [place] [address] 10/01/2024 10:00 AM EDT Imaging Radiology [address] [place] [facility] [id number] 01/02/2025 3:00 PM EDT Office Visit [facility] Eye [facility] [address] [place] [address] Carolina Ramirez MD [address] [place] [address] Scheduled Orders Name Type Priority Associated Diagnoses [...] Scan 04/30/2024 04/30/2017 CKD PHOS USE SMARTSET 44633 07/03/20242 10/2023, 07/11/2022, 06/14/2021, Additional history exists [...] Additional history exists CKD HGB USE SMARTSET 08296 01/17/202501/17, 01/18/2024, 08/14/2023, Additional history exists Diabetic [...] this encounter Medical Devices Implanted Type Area Plant Physiologist Device Identifier Shelf Expiration Date Model / Serial / Lot Shunt Tube Glaucoma Ahmed Fp7 - [id number] - [id number] Implanted:Qty: 1 on 11/17/2022 by Carolina Ramirez MD at [facility] Right: Eye [employer] [id number] 09/17/2024 FPAugustus / [id number] / [id number] Graft [place] Cornea Split - [id number] Implanted:Qty: 1 on 11/17/2022 by Carolina Ramirez MD at [facility] Right: Eye [employer] 09/11/2024 O-1 / [id number] / [id number] Shunt Tube Glaucoma Ahmed Fp7 - [id number] Implanted:Qty: 1 on 12/18/2023 by Carolina Ramirez MD at [facility] Left: Eye [employer] [id number] 10/24/2025 [facility] / [id number] / [id number] Graft [place] Cornea Split - [id number] Implanted:Qty: 1 on 12/18/2023 by Carolina Ramirez MD at [facility] Left: Eye [employer] 10/21/2025 HCO-1 / [id number] / [id number] documented as of this encounter Visit [...] and were consensually agreed upon. Care Teams Sample Preparation Supervisor Relationship Specialty Start Date End Date Ghislaine Hernandez DO 132 [facility] [place] [address] PCP - General Family Medicine 07/09/14 documented as of this encounter
--- OUTSIDE RECORDS SUMMARY | 2024-08-15 19:07 | External Medical Summary | Summary of Care ---
Author Name Unknown Organization [facility] Address [address] [place] [address] Phone [phone] Care Team Providers Care Substation Engineer Name Role Phone Joseph Navarro DO Primary Care Provider [phone] Reason for Visit * Reason Comments eRx-Medication Refill Encounter Details Date Type Department Care Team (Late st Contact Info) Description 03/02/2024 Refill Family Practice [facility] [address] [facility] [place] [address] Joseph Navarro, [address] [facility] [place] [address] HTN, goal below 130/80 Allergies Active Allergy Reactions Criticality Noted Date Comments Bee Venom Edema airway,Edema Other High 01/15/2014 Eye swelled shut Ciprofloxacin Other (Please comment) Medium 11/24/2016 Trouble breathing, nausea Furosemide Rash 08/02/2023 Lisinopril High 08/14/2023 angioedema Nitrofurantoin 11/08/2018 vomiting Sulfa Antibiotics Hives,Other (Please comment) 01/15/2014 Boil/Acne like sores on abdomen documented as of this encounter (statuses as of 03/04/2024) Medications Aspirin 81 MG Tablet Take 1 Tablet by mouth in the morning. 90 Tab 09/05/19 18 Active cholecalciferol, VIT D3, (VITAMIN D3) 1000 UNITS Tablet Take 1 Tablet by mouth in the morning. 04/17/19 20 Active OneTouch Ultra Blue In Vitro Strip (Glucose Blood)Indication s:Type 2 diabetes mellitus with hemoglobin A1c goal of less than 7.0% ([facility]) Use to test blood sugar once daily 100 Strip 11 06/12/19 21 Active Zoster Vac Recomb Adjuvanted 50 MCG/0.5ML Intramuscular Suspension Reconstituted (Shingrix)Indica tions:Need for vaccination for zoster Inject 0.5 mL into a large muscle now and repeat dose in 60 to 180 days 1 Each 1 06/29/19 23 Active metFORMIN HCl ER 500 MG Oral Tablet Extended Release 24 Hour (Glucophage XR)Indications:T ype 2 diabetes mellitus with hemoglobin A1c goal of less than 7.0% ([facility]) Take 1 tablet by mouth once daily 90 Tablet 3 02/24/20 23 Active Additional Information Patient taking differently: 500 mg Oral HS, Indications: in evening, Reported on 08/27/2023 Folic Acid 1 MG Oral TabletIndication s:Folic acid deficiency Take 1 Tablet by mouth in the morning. 30 Tablet 11 04/03/20 23 Active Dorzolamide HCl 2 % Ophthalmic Solution (Trusopt Ocumeter Plus) Instill 1 Drop into both eyes in the morning and 1 Drop in the evening. 30 mL 3 04/19/19 24 Active Additional Information Patient not taking.Reported on 02/14/2024 Rocklatan 0.02-0.005 % Ophthalmic Solution (Netarsudil-Rebecca noprost) [...] weeks. 45 g 1 08/28/19 24 Active prednisoLONE Acetate 1 % Ophthalmic Suspension (Pred Forte) Instill 1 Drop into the left eye 6 times a day. To begin after eye surgery 10 mL 1 12/12/19 24 Active Additional Information Patient not taking.Reported on 02/14/2024 Atorvastatin Calcium 40 MG Oral Tablet (Lipitor)Indicat ions:Dyslipidemi a, goal LDL below 100 Take 1 tablet by mouth once daily 90 Tablet 3 01/21/20 24 Active glipiZIDE 5 MG Oral Tablet (Glucotrol) Take 1/2 (one-half) tablet by mouth once daily 45 Tablet 1 02/08/20 24 Active Brinzolamide 1 % Ophthalmic Suspension (Azopt) Instill 1 Drop into the right eye in the morning and 1 Drop before bedtime. 10 mL 02/08/20 24 Active amLODIPine Besylate 10 MG Oral Tablet (Norvasc)Indicat ions:HTN, goal below 130/80 Take 1 tablet by mouth once daily 90 Tablet 3 02/26/20 24 Active Atenolol 25 MG Oral Tablet (Tenormin)Indica tions:HTN, goal below 130/80 Take 1 tablet by mouth once daily 90 Tablet 1 03/04/20 24 Active Atenolol 25 MG Oral Tablet (Tenormin)Indica tions:HTN, goal below 130/80 Take 1 tablet by mouth once daily 90 Tablet 3 02/24/20 23 2023 Discontinued Hospital, Clinic, or Other Facility Administered [...] as of this encounter (statuses as of 03/04/2024) Active Problems Problem Noted Date Diagnosed Date [...] as of this encounter (statuses as of 03/04/2024) Resolved Problems Problem Noted Date Diagnosed Date [...] as of this encounter (statuses as of 03/04/2024) Immunizations Name Administration Dates Next Due COVID-19 mRNA, LNP-s, No Pre serve, 2-Dose Series ([employer]) 09/03/2020,08/13/2020 Pneumococcal Conjugate Vacc, 13 Valent (Prevnar) [...] y our heating, water, or electric bill? (Adult - for ages 18 years and over) Not on file 11/26/2023 Is your family able to pay t he heat, water, or electric bill? (Household - for ages 0-17 years) Not on file 11/26/2023 Does your family have access to good internet? (Household - for ages 0-17 years) Not on file 11/26/2023 Employment Status Answer Date Recorded Are you unemployed or without regular income? No 11/16/2022 Does the household have a re gular source of income? (Household - for ages 0-17 years) Not on file 11/16/2022 Social Connections Answer Date Recorded How often do you feel lonely or isolated from those around you? (Adult - for ages 18 years and over) Not on file 11/26/2023 Financial Resource Strain Answer Date R ecorded [...] encounter Miscellaneous Notes * Telephone Encounter - Chandra Snider RPh - 03/04/2024 8:27 AM ESTSigned Prescriptions: Disp Refills Atenolol 25 MG Oral Tablet (Tenormin) 90 Tab*1 Sig: Take 1 tablet by mouth once dailyAuthorizing Provider: JOSEPH NAVARRO User: CHANDRA SNIDER--------- documented in this encounter Plan of Treatment Upcoming Encounters Date Type Department Care Team (Late st Contact Info) Description 03/11/2024 8:15 AM EST Office Visit Ophthalmology, [facility] [address] [place] [address] Nitish Crooks DO [facility] [address] 03/25/2024 6:10 PM EST Pharmacy Pharmacy, [facility] [address] [place] [id number] [facility] 132 [place] [address] 04/15/2024 2:00 PM EST Office Visit [facility] Eye [facility] [address] [place] [address] Carolina Ramirez MD [address] [place] [address] 05/01/2024 9:00 AM EST Office Visit [facility] [address] [place] [address] Myron Jones MD [address] [place] [address] 07/08/2024 1:00 PM EDT Office Visit [facility] [address] [place] [address] Joseph Navarro, 132 [place] [address] 08/11/2024 2:00 PM EDT Office Visit Nephrology, [facility] [address] [place] [address] Krystal Pond MD [address] [place] [address] 09/10/2024 1:00 PM EDT Office Visit [facility] [address] [place] [address] Joseph Navarro, [address] [place] [address] 10/01/2024 10:00 AM EDT Imaging Radiology [address] [place] [address] Scheduled Procedures Name Priority Associated Diagnoses Date/Ti [...] Scan 04/30/2024 04/30/2017 CKD PHOS USE SMARTSET 71720 07/03/202406/08, 07/11/2022, 06/14/2021, Additional history exists Diabetic [...] Additional history exists CKD HGB USE SMARTSET 61472 01/17/202501/17, 01/18/2024, 08/14/2023, Additional history exists Colonoscopy 12/07/2027 12/06/2017, 11/09, 11/16/2014, Additional history exists Colorectal Cancer Screening 12/07/2027 Lipid Panel 01/17/2029 01/18/2024, 03/10, 12/21/2021, Additional history exists Pneumococcal Vaccine: 65+ Years [...] this encounter Medical Devices Implanted Type Area Metal Grader Device Identifier Shelf Expiration Date Model / Serial / Lot Shunt Tube Glaucoma Ahmed Fp7 - [id number] - [id number] Implanted:Qty: 1 on 11/17/2022 by Carolina Ramirez MD at [facility] Right: Eye [employer] [id number] 09/17/2024 FP7 / [id number] / [id number] Graft [place] Cornea Split - [id number] Implanted:Qty: 1 on 11/17/2022 by Carolina Ramirez MD at [facility] Right: Eye [employer] VISIONGIFT 09/11/2024 HCO-HH1 / [id number] / [id number] Shunt Tube Glaucoma Ahmed Fp7 - [id number] Implanted:Qty: 1 on 12/18/2023 by Carolina Ramirez MD at [facility] Left: Eye [employer] [id number] 10/24/2025 [facility] / [id number] / [id number] Graft [place] Cornea Split - [id number] Implanted:Qty: 1 on 12/18/2023 by Carolina Ramirez MD at [facility] Left: Eye [employer] 10/21/2025 O-1 / [id number] / [id number] documented as of this encounter Visit Diagnoses Diagnosis HTN, goal below 130/80 Unspecified essential hypertension Screening mammogram for breast cancer documented in [...] and were consensually agreed upon. Care Teams Substation Engineer Relationship Specialty Start Date End Date Joseph Navarro DO [address] [place] [address] PCP - General Family Medicine 07/09/14 documented as of this encounter
--- OUTSIDE RECORDS SUMMARY | 2024-08-15 19:07 | External Medical Summary | Summary of Care ---
Author Name Unknown Organization [facility] Address [address] [place] [address] Phone [phone] Care Team Providers Care Cost Control Analyst Name Role Phone Ghislaine Hernandez Primary Care Provider [phone] Reason for Visit * Reason Comments Appointment Encounter Details Date Type Department Care Team (Late st Contact Info) Description 03/25/2024 6:10 PM [facility], [facility] [address] [facility] [address] [facility] [address] HTN, goal below 130/80* Allergies Active Allergy Reactions Criticality Noted Date Comments Bee Venom Edema airway,Edema Other High 01/15/2014 Eye swelled shut Ciprofloxacin Other (Please comment) Medium 11/24/2016 Trouble breathing, nausea Furosemide Rash 08/02/2023 Lisinopril High 08/14/2023 angioedema Nitrofurantoin 11/08/2018 vomiting Sulfa Antibiotics Hives,Other (Please comment) 01/15/2014 Boil/Acne like sores on abdomen documented as of this encounter (statuses as of 03/25/2024) Medications Aspirin 81 MG Tablet Take 1 [...] once daily 45 Tablet 1 4 Active Brinzolamide 1 % Ophthalmic Suspension (Azopt) Instill 1 Drop into the right eye in the morning and 1 Drop before bedtime. 10 mL 4 Active amLODIPine Besylate 10 MG Oral [...] once daily 90 Tablet 3 4 Active Hospital, Clinic, or Other Facility Administered [...] as of this encounter (statuses as of 03/25/2024) Active Problems Problem Noted Date Diagnosed Date [...] as of this encounter (statuses as of 03/25/2024) Resolved Problems Problem Noted Date Diagnosed Date [...] as of this encounter (statuses as of 03/25/2024) Immunizations Name Administration Dates Next Due COVID-19 [...] as of this encounter Progress Notes * Molly Bergman, carport erector - 03/25/2024 8:26 AM EST Patient Phone Numbers Left message on patient’s answering machine to schedule MTDM appointment for HTN management. [facility] message sent --n/a Clinic will follow up again in 3-4 week(s). [Attempt # 3] Thank you, Molly Bergman [facility] 03/25/2024 8:26 AM documented in this encounter Plan of Treatment Upcoming Encounters Date Type Department Care Team (Late st Contact Info) Description 04/15/2024 2:00 PM EST Office Visit [facility] Eye [facility] 16 [facility] [address] Carolina Ramirez MD [address] [place] [address] 04/17/2024 10:30 AM EST Office Visit [facility], [facility] [place] [address] Nitish Crooks, DO [address] [place] [address] 04/21/2024 6:10 PM EST Pharmacy Pharmacy, [facility] [address] [place] [address] [facility] [place] [address] 05/01/2024 9:00 AM EST Office Visit Allergy/Immunology [facility] [address] [place] [address] Myron Jones MD [address] [place] [address] 07/08/2024 1:00 PM EDT Office Visit [facility] [address] [place] [address] Ghislaine Hernandez, DO [address] [place] [address] 08/11/2024 2:00 PM EDT Office Visit Nephrology, [facility] [address] [place] [address] Krystal Pond MD 200 [facility] [place] [address] 09/10/2024 1:00 PM EDT Office Visit Family Practice [facility] [address] [place] [address] Ghislaine Hernandez, DO [address] [place] [address] 10/01/2024 10:00 AM EDT Imaging Radiology [facility] [address] [place] [address] Scheduled Procedures Name Priority Associated Diagnoses Date/Ti [...] Scan 04/30/2024 04/30/2017 CKD PHOS USE SMARTSET 44308 07/03/202406/08, 07/11/2022, 06/14/2021, Additional history exists Diabetic [...] Additional history exists CKD HGB USE SMARTSET 26418 01/17/202501/17, 01/18/2024, 08/14/2023, Additional history exists Colonoscopy 12/07/2027 12/06/2017, 08/3 , 11/16/2014, Additional history exists Colorectal Cancer Screening 12/07/2027 Lipid Panel 01/17/2029 01/18/2024, 12/2 05/2022, 12/21/2021, Additional history exists Pneumococcal Vaccine: 65+ [...] this encounter Medical Devices Implanted Type Area Assistant Spa Director Device Identifier Shelf Expiration Date Model / Serial / Lot Shunt Tube Glaucoma Ahmed Fp7 - [id number] - [id number] Implanted:Qty: 1 on 11/17/2022 by Carolina Ramirez MD at [facility] Right: Eye [employer] [id number] 09/17/2024 FP7 / [id number] / [id number] Graft [place] Cornea Split - [id number] Implanted:Qty: 1 on 11/17/2022 by Carolina Ramirez MD at [facility] Right: Eye [employer] 09/11/2024 HCO-HH1 / [id number] / [id number] Shunt Tube Glaucoma Ahmed Fp7 - [id number] Implanted:Qty: 1 on 12/18/2023 by Carolina Ramirez MD at [facility] Left: Eye [employer] [id number] 10/24/2025 FP7 / [id number] / [id number] Graft [place] Cornea Split - [id number] Implanted:Qty: 1 on 12/18/2023 by Carolina Ramirez MD at [facility] Left: Eye [employer] 10/21/2025 HCO-HH1 / [id number] / [id number] documented as of this encounter Visit Diagnoses Diagnosis HTN, goal below 130/80- Primary Unspecified essential hypertension Screening mammogram for breast [...] and were consensually agreed upon. Care Teams Cost Control Analyst Relationship Specialty Start Date End Date Ghislaine Hernandez DO [address] [place] [address] PCP - General Family Medicine 07/09/14 documented as of this encounter
--- OUTSIDE RECORDS SUMMARY | 2024-08-15 19:07 | External Medical Summary | Summary of Care ---
Author Name Unknown Organization [facility] Address [address] [place] [address] Phone [phone] Care Team Providers Care Gymnasium Teacher Name Role Phone Joseph Navarro DO Primary Care Provider [phone] Reason for Visit * Reason Comments eRx-Medication Refill Encounter Details Date Type Department Care Team (Late st Contact Info) Description 02/24/2024 Refill Family Practice [facility] [address] [facility] [place] [address] Joseph Navarro, [address] [facility] [place] [address] HTN, goal below 130/80 Allergies Active Allergy Reactions Criticality Noted Date Comments Bee Venom Edema airway,Edema Other High 01/15/2014 Eye swelled shut Ciprofloxacin Other (Please comment) Medium 11/24/2016 Trouble breathing, nausea Furosemide Rash 08/02/2023 Lisinopril High 08/14/2023 angioedema Nitrofurantoin 11/08/2018 vomiting Sulfa Antibiotics Hives,Other (Please comment) 01/15/2014 Boil/Acne like sores on abdomen documented as of this encounter (statuses as of 02/26/2024) Medications Aspirin 81 MG Tablet Take 1 [...] days 1 Each 1 06/29/19 23 Active Atenolol 25 MG Oral Tablet (Tenormin)Indica tions:HTN, goal below 130/80 Take 1 tablet by mouth once daily 90 Tablet 3 02/24/20 23 Active Additional Information Patient taking differently: 25 mg Oral Daily(AM), Reported on 08/27/2023 metFORMIN HCl ER 500 MG Oral Tablet Extended Release 24 Hour (Glucophage XR)Indications:T ype 2 diabetes mellitus with hemoglobin A1c goal of less than 7.0% ([facility]) Take 1 tablet by mouth [...] daily 90 Tablet 3 02/26/20 24 Active amLODIPine Besylate 10 MG Oral [...] as of this encounter (statuses as of 02/26/2024) Active Problems Problem Noted Date Diagnosed Date [...] as of this encounter (statuses as of 02/26/2024) Resolved Problems Problem Noted Date Diagnosed Date [...] as of this encounter (statuses as of 02/26/2024) Immunizations Name Administration Dates Next Due COVID-19 [...] encounter Miscellaneous Notes * Telephone Encounter - Pipo Sewell RPh - 02/26/2024 9:27 AM ESTSigned Prescriptions: Disp Refills amLODIPine Besylate 10 MG Oral Tablet (Nor*90 Tab*3 Sig: Take 1 tablet by mouth once dailyAuthorizing Provider: JOSEPH NAVARRO User: PIPO SEWELL documented in this encounter Plan of Treatment Upcoming Encounters Date Type Department Care Team (Late st Contact Info) Description 02/26/2024 6:10 PM EST Pharmacy Pharmacy, [facility] [address] [facility] [place] [address] [facility] [address] [place] [address] HTN, goal below 130/80* 03/11/2024 8:15 AM EST Office Visit Ophthalmology, [facility] [address] [facility] [place] [address] Nitish Crooks, DO [address] [place] [address] 03/25/2024 6:10 PM EST Pharmacy Pharmacy, [facility] [address] [facility] [place] [address] [facility] [address] [facility] [place] [address] 04/15/2024 2:00 PM EST Office Visit [facility] [address] [place] [address] Carolina Ramirez MD [address] [place] [address] 05/01/2024 9:00 AM EST Office Visit Allergy/Immunology [facility] [place] [address] [place] [address] Myron Jones MD [address] [place] [address] 07/08/2024 1:00 PM EDT Office Visit Family Practice [facility] [place] [address] Joseph Navarro, DO [address] [place] [address] 08/11/2024 10:00 AM EDT Office Visit Nephrology, [facility] [address] [place], [place] [address] Krystal Pond MD [address] [place] [address] 09/10/2024 1:00 PM EDT Office Visit Family Practice [facility] [address] [place] [address] Joseph Navarro DO [address] [place] [address] 10/01/2024 10:00 AM EDT Imaging Radiology [facility] [address] [place] [address] Scheduled Procedures Name Priority Associated Diagnoses Date/Ti [...] Scan 04/30/2024 04/30/2017 CKD PHOS USE SMARTSET 02230 07/03/202406/08, 07/11/2022, 06/14/2021, Additional history exists Diabetic [...] Additional history exists CKD HGB USE SMARTSET 06476 01/17/202501/17, 01/18/2024, 08/14/2023, Additional history exists Colonoscopy [...] this encounter Medical Devices Implanted Type Area Test Bore Helper Device Identifier Shelf Expiration Date Model / Serial / Lot Shunt Tube Glaucoma [employer] Fp7 - [id number] - [id number] Implanted:Qty: 1 on 11/17/2022 by Bashir Alejandra, Carolina Mortensen MD at [facility] Right: Eye [employer] [id number] 09/17/2024 TRACY / [id number] / [id number] Graft [place] Cornea Split - [id number] Implanted:Qty: 1 on 11/17/2022 by Carolina Ramirez MD at [facility] Right: Eye [employer] 09/11/2024 O-1 / [id number] / [id number] Shunt Tube Glaucoma Ahmed Fp7 - [id number] Implanted:Qty: 1 on 12/18/2023 by Carolina Ramirez MD at [facility] Left: Eye [employer] [id number] 10/24/2025 FP7 / [id number] / [id number] Graft [place] Cornea Split - [id number] Implanted:Qty: 1 on 12/18/2023 by Carolina Ramirez MD at [facility] Left: Eye [employer] 10/21/2025 O-[facility] / [id number] / [id number] documented as of this encounter Visit Diagnoses Diagnosis HTN, goal below 130/80 Unspecified essential hypertension HTN, goal below 130/80- Primary Unspecified essential [...] and were consensually agreed upon. Care Teams Gymnasium Teacher Relationship Specialty Start Date End Date Joseph Navarro DO [address] [place] [address] PCP - General Family Medicine 07/09/14 documented as of this encounter
--- OUTSIDE RECORDS SUMMARY | 2024-08-15 19:07 | External Medical Summary | Summary of Care ---
Author Name Unknown Organization [facility] Address [address] [place] [address] Phone [phone] Care Team Providers Care Grubber Name Role Phone NathanielGhislaine alcantar Amita PUGH Primary Care Provider [phone] Reason for Visit * Reason Comments Follow Up 4-6 week follow up * Precert (Within 10 days (routine)) - Authorized Specialty Diagnoses / Procedures Referred By Tristian hammonds Referred To Contact Ophthalmology Diagnoses Type 2 diabetes mellitus with moderate nonproliferative diabetic retinopathy with macular edema, right eye (HCC) Procedures UT INJECTION, FARICIMAB-SVOA, 0.1 MG INJECTION OF EYE DRUG Nitish Crooks DO Phone: tel: fax: Ophthalmology, [facility] [place] [address] Phone: tel: fax: Referral ID Status Reason Start Date Expiration Date V isits Requested Visits Authorized [id number] Authorized Precert 04/27/2022 04/08/2099 [id number] Encounter Details Date Type Department Care Team (Late st Contact Info) Description 03/11/2024 8:15 AM EST Office Visit Ophthalmology, [facility] [address] [place] [address] Nitish Crooks DO [address] [place] [address] Proliferative diabetic retinopathy of both eyes associated [...] as of this encounter (statuses as of 03/11/2024) Medications Aspirin 81 MG Tablet Take 1 [...] as of this encounter (statuses as of 03/11/2024) Active Problems Problem Noted Date Diagnosed Date [...] as of this encounter (statuses as of 03/11/2024) Resolved Problems Problem Noted Date Diagnosed Date [...] as of this encounter (statuses as of 03/11/2024) Immunizations Name Administration Dates Next Due COVID-19 [...] Progress Notes * Nitish Crooks DO - 03/11/2024 8:15 AM EST [facility] [place] Nursing Notes: Christine Pineda LPN 03/11/24 0829 Signed Stephanie Mccauley is a 73 year old year old female who presents for PDR OU. Last Office Visit: 01/09/2024 (in office), Visit date not found (telemedicine) Patient currently c/o blurriness right eye over the last week. Some aching in right eye over the weekend. Are you diabetic? Yes. Do you check your blood sugars daily? NO. Last Hemoglobin A1C: Lab Results Component Value [...] (Snellen - Linear) Right Left Dist sc 20/150 20/100 -1 Dist ph sc 20/100 20/80 -2 Tonometry (Tonopen, 8:28 AM) Right Left Pressure 16 24 Tonometry #2 (Tonopen, 8:28 AM) Right Left Pressure 22 Tonometry #3 (Tonopen, 8:28 AM) Right Left Pressure 19 Pupils Pupils APD Right PERRL None Left PERRL None Visual Herman (Counting fingers) Right Left Full Full Extraocular Movement Right Left Full, Ortho Full, Ortho Neuro/Psych Oriented x3: Yes Dilation Both eyes: 0.5% Proparacaine @ 8:28 AM Dilation #2 Both eyes: 1.0% Mydriacyl, 2.5% Phenylephrine @ 8:28 AM Dilation Comments Patient cautioned that effects [...] nerve: 0.3, no edema/pallor/NVD macula: no CIDME, +lidar scientist vessels: wnl midperiphery: +lidar scientist periphery: PRP, no RT/RD Dilated fundus exam OS: vitreous: clear optic nerve: 0.3, no edema/pallor/NVD macula: no CIDME, +lidar scientist vessels: wnl midperiphery: +lidar scientist periphery: PRP, no RT/RD OCT Interpretation: OD: +DME, no srfluid, no PVD -worse 271um prior no sig change, prior STABLE, prior improved 106um, prior worse 72um, prior improved 28um prior worse 54um prior improved 35um, prior mildy worse, priorimproved, prior STABLE OS: no sig DME, no [...] 01-03-21, 11-11-20, 21, 21, 21, 20, 20, 11-03-20, 20, 20, 20, 03-27-19, 19, 19, 19, 08-01-19, 19, 05-02-19, 02-26-18, 10-05-2017, 05/15/17, 01-18-17, 10-31-16, 07/06/16, 05-25-, 02/03/16, 10/22/15, 09/09/15..., 05/19/15, 03/18/15, 11/11/14, 10/15/14, 09/15/14) -Vabysmo OD 11/02/22--NVI/NVA, 04/20/22, 01/27/22 -went 10 months -s/p PRP 01/31/23, 01/03/23 -worsening DME and NVI -Vabysmo 09/11/2023 -26 weeks; worse at 26 weeks OS: -s/p Triescence OS 02/04/15--great response -s/p ILUVIEN OS (05/13/15) -s/p PRP 01/24/23 -s/p Eylea OS (12/10/21, 09/23/21, 07/08/21, 03/21/21, 01-24-21, 12-09-20, 10-28-20, 09-09-20, 07-22-20, 06-01-20, 02-11-20, 12-02-20, 10-08-19, 08-20-19, 20, 05-06-, 03-19-19, 02-05-19, 12-18-18, 10-24-18, 08-15-18, 07-03-18, 04-18-18, 12-04-17, 06-26-2017, 03-29-17, 12/07/16, 08-03-16, 04/20/16, 01/06/16, 09/24/15, 04/29/15, 01/07/15, 11/26/14, 10/29/14, 09/24/14) -Vabysmo OS 12/04/23, 03/28/23, 11/08/22--NVI, 06/01/22, 03/09/2022 -14 weeks, went 8 months -12/04/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 2. Neovascular Glaucoma OU -s/p Ahmed OD--Dr. Camejo -s/p CEMENT MASON MAINTENANCE OD 10/30/23--Dr. Camejo Final eye medication list BOTH EYES Brimonidine-timolol 2 times a day Brinzolamide 2 times a day (shortage of dorzolamide) Rocklatan at bedtime 3. Myopia OU -(-3.50D) -no myopic retinopathy [...] PROCEDURE: Intravitreal injection of Vabysmo (faricimab) 6mg OD INFORMED CONSENT: Risks, benefits and alternatives have [...] Nursing Notes * Porsha Adkins RN - 03/11/2024 8:53 AM EST Stephanie Mccauley to receive fifth Vabysmo 6mg Injection of the Right eye. Correct eye confirmed with patient and marked by Nitish Crooks DO Vabysmo 6mg lot # [id number] Exp. Date: 12/2024 * Crhistine Pineda LPN - 03/11/2024 8:18 AM EST Stephanie Mccauley is a 73 year old year old female who presents for PDR OU. Last Office Visit: 01/09/2024 (in office), Visit date not found (telemedicine) Patient currently c/o blurriness right eye over the last week. Some aching in right eye over the weekend. Are you diabetic? Yes. Do you check your blood sugars daily? NO. Last Hemoglobin A1C: Lab Results Component Value [...] st Contact Info) Description 03/25/2024 6:10 PM EST Pharmacy Pharmacy, [facility] [address] [facility] [place] [address] [facility] [address] [facility] [place] [address] 04/15/2024 2:00 PM EST Office Visit [facility] [address] [place] [address] Carolina Ramirez MD [address] [place] [address] 05/01/2024 9:00 AM EST Office Visit Allergy/Immunology [facility] [address] [place] [address] Myron Jones MD [address] [place] [address] 07/08/2024 1:00 PM EDT Office Visit [facility] [address] [facility] [place] [address] Ghislaine Hernandez, DO [address] [facility] [place] [address] 08/11/2024 2:00 PM EDT Office Visit Nephrology, [facility] [address] [place] [address] Krystal Pond MD 200 [facility] [place] [address] 09/10/2024 1:00 PM EDT Office Visit [facility] [address] [place] [address] Ghislaine Hernandez, DO [address] [facility] [place] [address] 10/01/2024 10:00 AM EDT Imaging Radiology [facility] [address] [facility] [place] [address] Scheduled Orders Name Type Priority Associated Diagnoses Orde r Schedule RETINA SCAN DIAGNOSTIC IMAGE, POSTERIOR Procedures Routine 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, unspecified proliferative retinopathy type (HCC) Ordered: 03/11/2024 Scheduled Procedures Name Priority Associated Diagnoses Date/Ti me COLONOSCOPY FLEXIBLE PROXIMA L DIAGNOSTIC Recall Encounter for screening colonoscopy [facility] Maintenance Due Date Last Done Comments Cologuard 08/16/1996 Sigmoidoscopy 08/16/1996 Zoster Vaccines (3 of 3) 01/26/2019 12/01/2018, 12/09 Adult Wellness Visit 06/22/2020 06/23/2019 Diabetic Eye Exam 11/14/2023 11/13/2022, , 11/13/2022, Additional history exists COVID-19 Vaccine ( season) 2023 09/03/2020, 08/13/2020 Fecal Occult Blood Test 04/11/2024 04/11/2023, 10/05 DXA Scan 04/30/2024 04/30/2017 CKD PHOS USE SMARTSET 86635 07/03/202406/08, 07/11/2022, 06/14/2021, Additional history exists Diabetic [...] Additional history exists CKD HGB USE SMARTSET 48893 01/17/202501/17, 01/18/2024, 08/14/2023, Additional history exists Colonoscopy [...] this encounter Medical Devices Implanted Type Area Superintendent Communications Device Identifier Shelf Expiration Date Model / Serial / Lot Shunt Tube Glaucoma Ahmed Fp7 - [id number] - [id number] Implanted:Qty: 1 on 11/17/2022 by Carolina Ramirez MD at [facility] Right: Eye [employer] [id number] 09/17/2024 FP7 / [id number] / [id number] Graft [place] Cornea Split - [id number] Implanted:Qty: 1 on 11/17/2022 by Carolina Ramirez MD at OR [facility] Right: Eye [facility] [employer] 09/11/2024 HCO-HH1 / [id number] / [id number] Shunt Tube Glaucoma Ahmed Fp7 - [id number] Implanted:Qty: 1 on 12/18/2023 by Carolina Ramirez MD at OR [facility] Left: Eye [employer] [id number] 10/24/2025 FP7 / [id number] / [id number] Graft [place] Cornea Split - [id number] Implanted:Qty: 1 on 12/18/2023 by Carolina Ramirez MD at [facility] Left: Eye LIMC[employer] 10/21/2025 HCO-HH1 / [id number] / [id number] documented as of this encounter Visit Diagnoses Diagnosis 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, unspecified proliferative retinopathy type (HCC)- Primary Screening mammogram for breast cancer documented in this encounter Administered Medications Active Administered Medications - up to 3 most recent administrations Medication Order MAR Action Action Date Dose Rate Site Faricimab-svoa (Vabysmo) intravitreal inj 6 mg 6 mg, Intravitreal, PRN Other, Starting on Sun03/28/23 at 1034, Until Megan 03/27/24 at 1033, For 365 days, Each single dose vial and transfer filter needle should only be used for the treatment of a single eye.Indications:Neovascular glaucoma of right eye, indeterminate stage,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, unspecified proliferative retinopathy type (HCC) Given 03/11/2024 8:55 AM EST 6 mg Eye R ight Given 12/04/2023 11:04 AM EDT 6 mg E ye Left Given 09/11/2023 10:07 AM EDT 6 mg E ye Right ROPivacaine (Naropin) inj 1.5 mg 1.5 mg, Perineural, PRN Other, Starting on Sun03/28/23 at 1034, Until Megan 03/27/24 at 1033, For 365 daysIndications:Neovascular glaucoma of right eye, indeterminate stage,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, unspecified proliferative retinopathy type (HCC) Given 03/11/2024 8:55 AM EST 1.5 mg Eye R ight Given 12/04/2023 11:04 AM EDT 1.5 mg E ye Left Given 09/11/2023 10:07 AM EDT 1.5 mg E ye Right documented in this encounter Advance Directives * [...] and were consensually agreed upon. Care Teams Grubber Relationship Specialty Start Date End Date Ghislaine Hernandez DO [address] [place] [address] PCP - General Family Medicine 07/09/14 documented as of this encounter
--- OUTSIDE RECORDS SUMMARY | 2024-08-15 19:07 | External Medical Summary | Summary of Care ---
Author Name Unknown Organization [facility] Address [address] [place] [address] Phone [phone] Care Team Providers Care Oil Refiner Name Role Phone NathanielGhislaine alcantar Primary Care Provider [phone] Reason for Visit * Reason Comments Dosage Adjustment Via Phone (anticoag Cl inic) Encounter Details Date Type Department Care Team (Late st Contact Info) Description 02/26/2024 6:10 PM [facility], [facility] [address] [facility] 132 [place] [address] HTN, goal below 130/80* Allergies Active Allergy [...] 3 Active Atenolol 25 MG Oral Tablet (Tenormin)Indicat ions:HTN, goal below 130/80 Take 1 tablet by mouth once daily 90 Tablet 3 3 Active Additional Information Patient taking differently: 25 mg Oral Daily(AM), Reported on 08/27/2023 amLODIPine Besylate 10 MG Oral Tablet (Norvasc)Indicati ons:HTN, goal below 130/80 Take 1 tablet by mouth once daily 90 Tablet 3 3 Active Additional Information Patient taking differently: 10 mg Oral Daily(AM), Reported on 08/27/2023 metFORMIN HCl ER 500 MG Oral Tablet Extended Release 24 Hour (Glucophage XR)Indications:Ty pe 2 diabetes mellitus with hemoglobin A1c goal of less than 7.0% ([facility]) Take 1 tablet by mouth once daily 90 Tablet 3 3 Active Additional Information Patient taking differently: 500 mg Oral HS, Indications: in evening, Reported on 08/27/2023 Folic Acid 1 MG Oral TabletIndications :Folic acid deficiency Take 1 Tablet by mouth in the morning. 30 Tablet 11 3 Active Dorzolamide HCl 2 % Ophthalmic Solution (Trusopt Ocumeter Plus) Instill 1 Drop into both eyes in the morning and 1 Drop in the evening. 30 mL 3 4 Active Additional Information Patient not taking.Reported on 02/14/2024 Rocklatan 0.02-0.005 % Ophthalmic Solution (Netarsudil-Latan oprost) [...] Drop before bedtime. 10 mL 4 Active Hospital, Clinic, or Other Facility [...] mRNA, LNP-s, No Pre serve, 2-Dose Series ([employer]) 09/03/2020,08/13/2020 Pneumococcal Conjugate Vacc, 13 Valent (Prevnar) [...] as of this encounter Progress Notes * Apolonia Fish CPhT - 02/26/2024 8:11 AM EST Patient Phone Numbers Left message on patient’s answering machine to schedule MTDM appointment for HTN management. [facility] message sent --n Clinic will follow up again in 4 week(s). [Attempt # 2] Thank you, Apolonia Fish CPhT Veterinary Technician Instructor II [facility] 02/26/2024,8:11 AM documented in this encounter Plan of Treatment Upcoming Encounters Date Type Department Care Team (Late st Contact Info) Description 03/11/2024 8:15 AM EST Office Visit Ophthalmology, [facility] 132 [facility] [place] [address] Nitish Crooks, DO [address] [place] [address] 03/25/2024 6:10 PM EST Pharmacy Pharmacy, [facility] [place] [address] [facility] [address] [facility] [place] [place] [address] 04/15/2024 2:00 PM EST Office Visit [facility] [address] [place] [address] Carolina Ramirez MD 16 [place] [address] 05/01/2024 9:00 AM EST Office Visit Allergy/Immunology [facility] [address] [place] [address] Myron Jones MD [address] [place] [address] 07/08/2024 1:00 PM EDT Office Visit [facility] [place] [address] Ghislaine [place], DO [facility] [place] [address] 08/11/2024 10:00 AM EDT Office Visit Nephrology, [facility] [address] [place] [address] Krystal Pond MD [address] [place] [address] 09/10/2024 1:00 PM EDT Office Visit [facility] [place] [address] [place], Ghislaine M, DO [address] [place] [address] 10/01/2024 10:00 AM EDT Imaging Radiology [address] [place] [address] Scheduled Procedures Name Priority Associated Diagnoses Date/Ti [...] Scan 04/30/2024 04/30/2017 CKD PHOS USE SMARTSET 45294 07/03/202406/08, 07/11/2022, 06/14/2021, Additional history exists Diabetic [...] Additional history exists CKD HGB USE SMARTSET 72969 01/17/202501/17, 01/18/2024, 08/14/2023, Additional history exists Colonoscopy [...] this encounter Medical Devices Implanted Type Area Client Support Consultant Device Identifier Shelf Expiration Date Model / Serial / Lot Shunt Tube Glaucoma Ahmed Fp7 - [id number] - [id number] Implanted:Qty: 1 on 11/17/2022 by Carolina Ramirez MD at [facility] Right: Eye [employer] [id number] 09/17/2024 FPAugustus / [id number] / [id number] Graft [place] Cornea Split - [id number] Implanted:Qty: 1 on 11/17/2022 by Carolina Ramirez MD at [facility] Right: Eye [employer] 09/11/2024 O-1 / [id number] / [id number] Shunt Tube Glaucoma Ahmed Fp7 - [id number] Implanted:Qty: 1 on 12/18/2023 by Carolina Ramirez MD at [facility] Left: Eye [employer] [id number] 10/24/2025 FP7 / [id number] / [id number] Graft [place] Cornea Split - [id number] Implanted:Qty: 1 on 12/18/2023 by Carolina Ramirez MD at [facility] Left: Eye [employer] 10/21/2025 HCO-HH1 / [id number] / [id number] documented as of this encounter Visit [...] and were consensually agreed upon. Care Teams Oil Refiner Relationship Specialty Start Date End Date Ghislaine Hernandez DO [address] [place] [address] PCP - General Family Medicine 07/09/14 documented as of this encounter
--- OUTSIDE RECORDS SUMMARY | 2024-08-15 19:07 | External Medical Summary | Summary of Care ---
Author Name Unknown Organization [facility] Address [address] [place] [address] Phone [phone] Care Team Providers Care Education Program Associate Name Role Phone Ghislaine Hernandez Primary Care Provider [phone] Reason for Visit * Reason Onset Date Comments Medication Pre-auth 02/08/2024 Dorzolamide 2% Encounter Details Date Type Department Care Team (Late st Contact Info) Description 02/08/2024 Telephone [facility] [address] [place] [address] Carolina Ramirez MD [address] [place], [place] [id number] Medication Pre-auth (Dorzolamide 2%) Allergies Active Allergy Reactions Criticality Noted Date Comments Bee Venom Edema airway,Edema Other High 01/15/2014 Eye swelled shut Ciprofloxacin Other (Please comment) Medium 11/24/2016 Trouble breathing, nausea Furosemide Rash 08/02/2023 Lisinopril High 08/14/2023 angioedema Nitrofurantoin 11/08/2018 vomiting Sulfa Antibiotics Hives,Other (Please comment) 01/15/2014 Boil/Acne like sores on abdomen documented as of this encounter (statuses as of 03/18/2024) Medications Aspirin 81 MG Tablet Take 1 Tablet by mouth in the morning. 90 Tab 8 Active cholecalciferol, VIT D3, (VITAMIN D3) 1000 UNITS Tablet Take 1 Tablet by mouth in the morning. 0 Active OneTouch Ultra Blue In Vitro Strip (Glucose Blood)Indications :Type 2 diabetes mellitus with hemoglobin A1c goal of less than 7.0% ([facility]) Use to test blood sugar once daily [...] once daily 45 Tablet 1 4 Active Hospital, Clinic, or Other Facility [...] as of this encounter (statuses as of 03/18/2024) Active Problems Problem Noted Date Diagnosed Date [...] as of this encounter (statuses as of 03/18/2024) Resolved Problems Problem Noted Date Diagnosed Date [...] as of this encounter (statuses as of 03/18/2024) Immunizations Name Administration Dates Next Due COVID-19 mRNA, LNP-s, No Pre serve, 2-Dose Series (iMapData) 09/03/2020,08/13/2020 Pneumococcal Conjugate Vacc, 13 Valent (Prevnar) [...] encounter Miscellaneous Notes * Telephone Encounter - Nan Dia PHARM Tech - 02/08/2024 1:44 PM EDT Patient calling to inform doctor that the patient's medication is on backorder and requesting an alternative. Did confirm this information with the pharmacy. Pt's current insurance information is as follows: Patient name: Stephanie Mccauley ID number: [id number] BIN number: [id number] PCN number: [id number] Group number: [id number] Subscriber name: Stephanie Mccauley Primary or Secondary Insurance:Primary Medication: Dorzolamide 2 % ophthalmic soln Reason for Request: backorder Pharmacy and phone number: [facility] [phone] Rx plan and phone number: LISA [phone], What alternative medications does the pharmacy have in stock?: n/a Pt attempted multiple pharmacies and no one had rx in stock. Thanks, Nan Dia Dry Can Tender III [facility] ([facility]) 02/08/2024,1:44 PM documented in this encounter Plan of Treatment Upcoming Encounters Date Type Department Care Team (Late st Contact Info) Description 03/25/2024 6:10 PM EST Pharmacy Pharmacy, [facility] [address] [facility] [place] [address] [facility] [address] [place] [address] 04/15/2024 2:00 PM EST Office Visit [facility] [address] [address] Carolina Ramirez MD [address] [place] [address] 04/17/2024 10:30 AM EST Office Visit Ophthalmology, [facility] [address] [place] [address] Nitish Crooks, DO [address] [place] [address] 05/01/2024 9:00 AM EST Office Visit Allergy/Immunology [facility] [address] [facility] [place] [address] Myron oJnes MD [address] [facility] [place] [address] 07/08/2024 1:00 PM EDT Office Visit Family Practice [facility] [address] [place] [address] Ghislaine Hernandez, DO 132 [facility] [place] [address] 08/11/2024 2:00 PM EDT Office Visit Nephrology, [facility] [address] [place] [address] Krystal Pond MD 200 [facility] [place] [address] 09/10/2024 1:00 PM EDT Office Visit [facility] [address] [place] [address] Ghislaine Hernandez, DO [address] [facility] [place] [address] 10/01/2024 10:00 AM EDT Imaging Radiology [facility]st [facility] [address] [place] [address] Scheduled Procedures Name Priority Associated Diagnoses Date/Ti [...] Scan 04/30/2024 04/30/2017 CKD PHOS USE SMARTSET 54469 07/03/202406/08, 07/11/2022, 06/14/2021, Additional history exists Diabetic [...] Additional history exists CKD HGB USE SMARTSET 86765 01/17/202501/17, 01/18/2024, 08/14/2023, Additional history exists Colonoscopy [...] encounter Medical Devices Implanted Type Area Gas Appliance Mechanic Device Identifier Shelf Expiration Date Model / Serial / Lot Shunt Tube Glaucoma Ahmed Fp7 - [id number] - [id number] Implanted:Qty: 1 on 11/17/2022 by Carolina Ramirez MD at [facility] Right: Eye [employer] [id number] 09/17/2024 FP7 / [id number] / [id number] Graft Vader Cornea Split - [id number] Implanted:Qty: 1 on 11/17/2022 by Carolina Ramirez MD at [facility] Right: Eye [employer] 09/11/2024 HCO-1 / [id number] / [id number] Shunt Tube Glaucoma Ahmed Fp7 - [id number] Implanted:Qty: 1 on 12/18/2023 by Carolina Ramirez MD at [facility] Left: Eye [employer] [id number] 10/24/2025 FP / [id number] / [id number] Graft Vader Cornea Split - [id number] Implanted:Qty: 1 on 12/18/2023 by Carolina Ramirez MD at [facility] Left: Eye [employer] 10/21/2025 O-1 / [id number] / [id number] documented as of this encounter Advance [...] and were consensually agreed upon. Care Teams Education Program Associate Relationship Specialty Start Date End Date Ghislaine Hernandez DO [address] [facility] [place] [address] PCP - General Family Medicine 07/09/14 documented as of this encounter
--- OUTSIDE RECORDS SUMMARY | 2024-08-15 19:07 | External Medical Summary | Summary of Care ---
Author Name Unknown Organization [facility] Address [address] [place] [address] Phone [phone] Care Team Providers Care Emergency Room Physician Name Role Phone Joseph Navarro DO Primary Care Provider [phone] Reason for Visit * Reason Comments eRx-Medication Refill Encounter Details Date Type Department Care Team (Late st Contact Info) Description 03/07/2024 Refill Family Practice [facility] [address] [facility] [place] [address] Joseph Navarro, [address] [facility] [place] [address] Type 2 diabetes mellitus with hemoglobin A1c goal of less than 7.0% ([facility]) Allergies Active Allergy Reactions Criticality Noted Date Comments Bee Venom Edema airway,Edema Other High 01/15/2014 Eye swelled shut Ciprofloxacin Other (Please comment) Medium 11/24/2016 Trouble breathing, nausea Furosemide Rash 08/02/2023 Lisinopril High 08/14/2023 angioedema Nitrofurantoin 11/08/2018 vomiting Sulfa Antibiotics Hives,Other (Please comment) 01/15/2014 Boil/Acne like sores on abdomen documented as of this encounter (statuses as of 03/08/2024) Medications Aspirin 81 MG Tablet Take 1 Tablet by mouth in the morning. 90 Tab 09/05/19 18 Active cholecalciferol, VIT D3, (VITAMIN D3) 1000 UNITS Tablet Take 1 Tablet by mouth in the morning. 04/17/19 20 Active OneTouch Ultra Blue In Vitro Strip (Glucose Blood)Indication s:Type 2 diabetes mellitus with hemoglobin A1c goal of less than 7.0% ([facility]) Use to test blood sugar once [...] daily 90 Tablet 3 03/08/20 24 Active metFORMIN HCl ER 500 MG [...] as of this encounter (statuses as of 03/08/2024) Active Problems Problem Noted Date Diagnosed Date [...] as of this encounter (statuses as of 03/08/2024) Resolved Problems Problem Noted Date Diagnosed Date [...] as of this encounter (statuses as of 03/08/2024) Immunizations Name Administration Dates Next Due COVID-19 [...] encounter Miscellaneous Notes * Telephone Encounter - Mariia Schafer RPh - 03/08/2024 6:25 AM ESTSigned Prescriptions: Disp Refills metFORMIN HCl ER 500 MG Oral Tablet Extend*90 Tab*3 Sig: Take 1 tablet by mouth once dailyAuthorizing Provider: JOSEPH NAVARRO User: MARIIA SCHAFER documented in this encounter Plan of Treatment Upcoming Encounters Date Type Department Care Team (Late st Contact Info) Description 03/11/2024 8:15 AM EST Office Visit Ophthalmology, [facility] 132 [facility] [place], [place] [address] Nitish Crooks, DO 132 [facility] [place] [address] 03/25/2024 6:10 PM EST Pharmacy Pharmacy, [facility] 132 [facility] [address] [facility] 132 [place] [address] 04/15/2024 2:00 PM EST Office Visit [facility] [address] [place] [address] Carolian Ramirez MD [address] [place] [address] 05/01/2024 9:00 AM EST Office Visit [facility] [place] [address] [place] [address] Myron Jones MD [address] [place] [address] 07/08/2024 1:00 PM EDT Office Visit Family [facility] 132 [facility] [place] [address] Joseph Navarro, DO 132 [facility] [place] [address] 08/11/2024 2:00 PM EDT Office Visit Nephrology, [facility] [address] [place] [address] Krystal Pond MD [address] [place] [address] [address] 09/10/2024 1:00 PM EDT Office Visit Family [facility] [address] [place] [address] Joseph Navarro, [address] [place] [address] 10/01/2024 10:00 AM EDT Imaging Radiology [facility] 1st [facility] [address] [place] [address] Scheduled Procedures Name Priority Associated Diagnoses Date/Ti [...] Scan 04/30/2024 04/30/2017 CKD PHOS USE SMARTSET 83248 07/03/202406/08, 07/11/2022, 06/14/2021, Additional history exists Diabetic [...] Additional history exists CKD HGB USE SMARTSET 22616 01/17/202501/17, 01/18/2024, 08/14/2023, Additional history exists Colonoscopy [...] this encounter Medical Devices Implanted Type Area Drive Shaft And Steering Post Repairer Device Identifier Shelf Expiration Date Model / Serial / Lot Shunt Tube Glaucoma [facility] Fp7 - [id number] - [id number] Implanted:Qty: 1 on 11/17/2022 by Carolina Ramirez MD at [facility] Right: Eye [employer] [id number] 09/17/2024 FP7 / [id number] / [id number] Graft [place] Cornea Split - [id number] Implanted:Qty: 1 on 11/17/2022 by Carolina Ramirez MD at [facility] Right: Eye [employer] 09/11/2024 HCO-HH1 / [id number] / [id number] Shunt Tube Glaucoma med Fp7 - [id number] Implanted:Qty: 1 on 12/18/2023 by Carolina Ramirez MD at [facility] Left: Eye [employer] [id number] 10/24/[address] [facility] / [id number] / [id number] Graft [place] Cornea Split - [id number] Implanted:Qty: 1 on 12/18/2023 by Carolina Ramirez MD at [facility] Left: Eye [employer] 10/21/2025 O-1 / [id number] / [id number] documented as of this encounter Visit Diagnoses Diagnosis Type 2 diabetes mellitus with hemoglobin A1c goal of less than 7.0% ([facility]) Screening mammogram for breast cancer documented in [...] and were consensually agreed upon. Care Teams Emergency Room Physician Relationship Specialty Start Date End Date Joseph Navarro DO [address] [place] [address] PCP - General Family Medicine 07/09/14 documented as of this encounter
--- OUTSIDE RECORDS SUMMARY | 2024-08-15 19:07 | External Medical Summary | Summary of Care ---
Author Name Unknown Organization [facility] [address] [place] [address] Phone [phone] Care Team Providers Care Bleaching Supervisor Name Role Phone Ghislaine Hernandez Primary Care Provider [phone] Encounter Details Date Type Department Care Team (Late st Contact Info) Description 03/28/2024 Telephone [facility] [address] [place] [address] Kareem Ramires MD [address] [place] [address] Allergies Active Allergy Reactions Criticality Noted Date Comments Bee Venom Edema airway,Edema Other High 01/15/2014 Eye swelled shut Ciprofloxacin Other (Please comment) Medium 11/24/2016 Trouble breathing, nausea Furosemide Rash 08/02/2023 Lisinopril High 08/14/2023 angioedema Nitrofurantoin 11/08/2018 vomiting Sulfa Antibiotics Hives,Other (Please comment) 01/15/2014 Boil/Acne like sores on abdomen documented as of this encounter (statuses as of 03/28/2024) Medications Aspirin 81 MG Tablet Take 1 Tablet by mouth in the morning. 90 Tab 09/05/19 18 Active cholecalciferol, VIT D3, (VITAMIN D3) 1000 UNITS Tablet Take 1 Tablet by mouth in the morning. 04/17/19 20 Active OneTouch Ultra Blue In Vitro Strip (Glucose Blood)Indications :Type 2 diabetes mellitus with hemoglobin A1c goal of less than 7.0% ([facility]) Use to test blood sugar once daily 100 Strip 11 06/12/19 21 Active Zoster Vac Recomb Adjuvanted 50 MCG/0.5ML Intramuscular Suspension Reconstituted (Shingrix)Indicat ions:Need for vaccination for zoster Inject 0.5 mL into a large muscle now and repeat dose in 60 to 180 days 1 Each 1 06/29/19 23 Active Folic Acid 1 MG Oral TabletIndications [...] bedtime. 10 mL 11 03/28/20 24 Active Brinzolamide 1 % Ophthalmic Suspension (Azopt) Instill 1 Drop into the right eye in the morning and 1 Drop before bedtime. 10 mL 02/08/20 24 024 Discontin ued(Refil l) documented as of this encounter (statuses as of 03/28/2024) Active Problems Problem Noted Date Diagnosed Date [...] as of this encounter (statuses as of 03/28/2024) Resolved Problems Problem Noted Date Diagnosed Date [...] as of this encounter (statuses as of 03/28/2024) Immunizations Name Administration Dates Next Due COVID-19 mRNA, LNP-s, No Pre serve, 2-Dose Series ([facility]) 09/03/2020,08/13/2020 Pneumococcal Conjugate Vacc, 13 Valent (Prevnar) [...] Encounter - Nan Dia PHARM Tech - 03/28/2024 2:32 PM EST Pt calling to advise Brinzolamide 1% was only written as 2 drops in right eye but pt was using rx in both eyes like her dorzolamide 2% which is on backorder. Please advise and submit Brinzolamide 1% for use into both eyes if appropriate. Pt is out of medication. Thanks, Nan Dia Sweeping Compound Blender III [facility] ([facility]) 03/28/2024,2:34 PM documented in this encounter Plan of Treatment Upcoming Encounters Date Type Department Care Team (Late st Contact Info) Description 04/15/2024 2:00 PM EST Office Visit [facility] [address] [place] [address] Carolina Ramirez MD [address] [place] [address] 04/17/2024 10:30 AM EST Office Visit Ophthalmology, [facility] 132 [facility] [place] [address] Nitish Crooks DO [address] [place] [address] 04/21/2024 6:10 PM EST Pharmacy Pharmacy, [facility] [address] [place] [address] [facility] [address] [facility] [place] [address] 05/01/2024 9:00 AM EST Office Visit Allergy/Immunology [facility] [address] [place] [address] Myron Jones MD 200 [facility] [place] [address] 07/08/2024 1:00 PM EDT Office Visit [facility] [address] [place] [address] Ghislaine Hernandez, DO [address] [facility] [place] [address] 08/11/2024 2:00 PM EDT Office Visit Nephrology, [facility] [address] [facility] [place] [address] Krystal Pond MD [address] [facility] [place] [address] 09/10/2024 1:00 PM EDT Office Visit [facility] [address] [place] [address] Ghislaine Hernandez, DO [address] [place] [address] 10/01/2024 10:00 AM EDT Imaging Radiology [address] [facility] [place] [address] Scheduled Procedures Name Priority Associated Diagnoses Date/Ti [...] Scan 04/30/2024 04/30/2017 CKD PHOS USE SMARTSET 94738 07/03/[address] 10/2023, 07/11/2022, 06/14/2021, Additional history exists [...] Additional history exists CKD HGB USE SMARTSET 40037 01/17/202501/17, 01/18/2024, 08/14/2023, Additional history exists Colonoscopy 12/07/2027 12/06/2017, 08, [...] this encounter Medical Devices Implanted Type Area Carburetor Repairer Device Identifier Shelf Expiration Date Model / Serial / Lot Shunt Tube Glaucoma Ahmed Fp7 - [id number] - [id number] Implanted:Qty: 1 on 11/17/2022 by Carolina Ramirez MD at [facility] Right: Eye [employer] [id number] 09/17/2024 FP7 / [id number] / [id number] Graft [place] Cornea Split - [id number] Implanted:Qty: 1 on 11/17/2022 by Carolina Ramirez MD at [facility] Right: Eye [employer] 09/11/2024 HCO-1 / [id number] / [id number] Shunt Tube Glaucoma Ahmed Fp7 - [id number] Implanted:Qty: 1 on 12/18/2023 by Carolina Ramirez MD at [facility] Left: Eye [employer] [id number] 10/24/2025 FP7 / [id number] / [id number] Graft [place] Cornea Split - [id number] Implanted:Qty: 1 on 12/18/2023 by Carolina Ramirez MD at [facility] Left: Eye [employer] 10/21/2025 HCO-HH1 / [id number] / [id number] documented as of this encounter Advance [...] and were consensually agreed upon. Care Teams Bleaching Supervisor Relationship Specialty Start Date End Date Ghislaine Hernandez DO [address] [place] [address] PCP - General Family Medicine 07/09/14 documented as of this encounter
[2024-08-15] MEDS ORDERED: MAGNESIUM HYDROXIDE SUSP 30 ML UDC PO PRN (21:02)
[2024-08-15] MEDS ORDERED: ALUMINUM/MAGNESIUM SUSP 30 ML UDC PO PRN (21:02)
[2024-08-15] MEDS ORDERED: DEXTROSE 50% 50 ML SYRINGE IV PRN (21:02)
[2024-08-15] MEDS ORDERED: CARBOHYDRATES FOR HYPOGLYCEMIA PO PRN (21:02)
[2024-08-15] MEDS ORDERED: GLUCOSE 40% GEL 15 GM TUBE PO PRN (21:02)
[2024-08-15] MEDS ORDERED: GLUCAGON FOR INJ 1 MG VIAL SQ PRN (21:02)
[2024-08-15] MEDS ORDERED: POLYETHYLENE (MIRALAX) 17 GM PACK PO PRN (21:02)
[2024-08-15] MEDS ORDERED: GLUCOSE 10 TAB/TUBE PO PRN (21:02)
[2024-08-15] MEDS: INSULIN ASPART PER UNIT CHARGE SC SCH (21:13)
[2024-08-15] MEDS: DORZOLAMIDE/TIMOLOL 22.3/6.8MG/ML 10 ML BTL OP SCH (21:45)
[2024-08-15] MEDS: hydrALAZINE TAB 50 MG TAB PO SCH (21:45)
[2024-08-15] MEDS: HEPARIN SOD 5,000 UNIT/0.5 ML VIAL SQ SCH (21:45)
[2024-08-15] MEDS: FAMOTIDINE 20 MG TAB PO SCH (21:45)
[2024-08-15] MEDS: ATORVASTATIN 40 MG TAB PO SCH (21:45)
[2024-08-16] MEDS: ONDANSETRON INJ 2 MG/ML 2 ML VIAL IV PRN (03:29)
[2024-08-16] MEDS: ACETAMINOPHEN 325 MG TAB PO PRN (03:32)
[2024-08-16] MEDS: CEFEPIME 1000MG 1,000 MG/10 ML SYR IV SCH (05:09)
[2024-08-16 06:47] LABS: Hematocrit (blood only) 32.2 % (37.0-47.0); Hemoglobin 10.6 g/dl (12.0-16.0); Mean Corpuscular Hemoglobin 28.2 pg (25.0-34.0); Mean Corpuscular Hgb Conc 32.9 g/dL (32.0-36.0); Mean Corpuscular Volume 85.6 fL (80.0-100.0); Mean Platelet Volume 9.5 fL (9.4-12.4); Platelet Count 154 K/uL (130-400); RDW Coefficient of Variation 13.5 % (11.5-14.5); RDW Standard Deviation 42.5 fL (36.4-46.3); Red Blood Count 3.76 M/uL (4.20-5.40); White Blood Count 4.29 K/ul (4.8-10.8)
[2024-08-16 07:10] LABS: Calcium 8.4 mg/dl (8.6-10.3); Creatinine Clr Calc Pharmacy 41.8 ml/min; Magnesium 1.9 mg/dl (1.7-2.4); Phosphorus 3.1 mg/dl (2.5-4.9); Potassium 3.9 mmol/L (3.5-5.1)
[2024-08-16] MEDS: amLODIPine BESYLATE 5 MG TAB PO SCH (08:06)
[2024-08-16] MEDS: CHOLECALCIFEROL 25 MCG (1000 UNITS) TAB PO SCH (08:07)
[2024-08-16] MEDS: ASPIRIN 81 MG ECTAB PO SCH (08:07)
[2024-08-16] MEDS: ATENOLOL 25 MG TABLET PO SCH (08:07)
[2024-08-16] MEDS: FOLIC ACID 1 MG TAB PO SCH (08:10)
--- NOTE | 2024-08-16 12:02 | Hospitalist Progress Note ---
Date of Service August 16, 2024 Assessment & Plan (1) Complicated UTI (urinary tract infection): Plan: 73 year old female with past medical history of DM Type II- non-insulin dependent, CKD Stage 3, hypertension, presents with low back pain, chills, fever, diaphoresis and headache. 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 Last pyelonephritis infection was one year ago, treated with cefepime with positive results. Complicated UTI Possible early pyelonephritis History of left ureteric stenosis status post stent placement in past and has had pyelonephritis before Cefepime initiated in the emergency department- continue Cefepime 1gm Q12H dosing with renal adjustment; Creat clearance 39.8ml/min today Dose adjust for change in Cr clearance Clinically much better and the back pain has improved Denies any fever and/or chills and no nausea no vomiting Will await cultures and continue the current antibiotic Bradycardia/ Hypertension: BP elevated on admission 160's/70's; Goal 130/80 Continue home regimen amlodipine, atenolol, hydralazine Telemetry monitoring- did not show any significant bradycardia arrhythmias and heart rate remains low at 47 History of trivial tricuspid regurgitation 1 year ago- will re-eval valve functioning Awaiting echo Diabetes Mellitus Type II: Insulin sliding scale for blood sugar management- Goal 110-140, Correction Factor 30, carb coverage 10 Accucheck ACHS Adjust insulin dosing as needed (2) CKD (chronic kidney disease) stage 3, GFR 30-59 ml/min: Plan: Kidney function has been normalized Will not give any intravenous fluid but the patient was advised to drink more fluid (3) Bradycardia: Plan: EKG showed normal sinus rhythm with a rate of 60/min Vital signs showed pulse rate of 47 at 11:38 AM (4) HTN (hypertension): (5) DM type 2 (diabetes mellitus, type 2): Plan DVT Ppx: Heparin Code status: Full PCP: Dr. Hernandez Dispo: Admit Med Surg Tele Admission and Anticipated Discharge Date Admission Date: August 15, 2024 Subjective 08/16/2024 The patient was seen and examined in medical telemetry unit She was admitted with low back pain mostly on the left side without any urinary symptoms Noted to have acute pyelonephritis and she has been feeling much better since admission Minimal pain at the left renal angle without any nausea or vomiting Review of Systems Review of Systems: All systems reviewed and are unremarkable except as noted below Physical Exam Physical Exam: Sitting at the edge of the bed without any acute distress Constitutional: well developed, well nourished, + ill appearing and + obese Eyes: PERRL, conjunctivae normal, anicteric sclerae ENMT: external ear and nose normal, oropharynx normal Neck: trachea midline, no thyromegaly Respiratory: no respiratory distress Auscultation: lungs clear to auscultation bilaterally Cardiovascular: Rate/Rhythm: regular rate, regular rhythm and + bradycardic Heart Sounds: normal S1 and normal S2; no murmur Extremities: + edema (Trace edema bilaterally) Gastrointestinal (Abdomen): Inspection/Auscultation: normal bowel sounds; abdomen not distended Percussion/Palpation: + abdomen tender ( Left renal angle) and abdomen soft Musculoskeletal: No acute arthritis involving any of the joint Neurologic: normal touch/pain/proprioception and moves all extremities; no focal motor deficits Lymphatic: no cervical or axillary lymphadenopathy Results & Data Results & Data Vital Signs (Past 12 Hours) Vital Signs Temp Pulse Pulse Resp BP Pulse Ox O2 Del Method 08/16/24 11:38 37.4 C 47 L 20 123/69 98 Room Air 08/16/24 07:41 36.9 C 52 L 18 104/66 94 Room Air 08/16/24 07:22 54 L 08/16/24 03:42 37.5 C 63 18 163/69 H 98 Room Air Laboratory Results Short CBC 08/15/24 08/16/24 Range/Units 15:45 05:36 WBC 6.32 4.29 L (4.8-10.8) K/ul Hgb 11.8 L 10.6 L (12.0-16.0) g/dl Hct 34.9 L 32.2 L (37.0-47.0) % Plt Count 193 154 (130-400) K/uL BMP 08/15/24 08/16/24 15:45 05:36 Sodium 137 138 Potassium 4.1 3.9 Chloride 104 107 Carbon Dioxide 27 26 BUN 28 H 26 H Creatinine 1.26 H 1.18 Glucose 110 H 122 H Calcium 8.9 8.4 L Liver Function 08/15/24 Range/Units 15:45 Total Bilirubin 0.5 (0.2-1.0) mg/dl AST 28 (13-39) U/L ALT 28 (7-52) U/L Alkaline Phosphatase 86 (34-104) U/L Albumin 4.1 (3.4-5.0) gm/dl Urine 08/15/24 Range/Units 16:28 Urine Color Yellow Urine Appearance Cloudy A (Clear) Urine pH 6.0 (4.5-7.5) Ur Specific [place] 1.017 (1.000-1.030) Urine Protein 1+ H (Negative) Urine Glucose (UA) Negative (Negative) Medications Administered Current Inpatient Medications Acetaminophen (Acetaminophen 325 Mg Tab) 650 mg PO Q4H PRN PRN Reason: Pain or Fever Stop: 09/14/24 21:01 Last Admin: 08/16/24 03:32 Dose: 650 mg Al Hydrox/Mg Hydrox/Simethicone (Aluminum/Magnesium Susp 30 Ml Udc) 15 ml PO Q4H PRN PRN Reason: Dyspepsia Stop: 09/14/24 21:01 Amlodipine Besylate (Amlodipine Besylate 5 Mg Tab) 10 mg PO DAILY SUZANNE Stop: 09/15/24 08:59 Last Admin: 08/16/24 08:06 Dose: 10 mg Aspirin (Aspirin 81 Mg Ectab) 81 mg PO DAILY SUZANNE Stop: 09/15/24 08:59 Last Admin: 08/16/24 08:07 Dose: 81 mg Atenolol (Atenolol 25 Mg Tablet) 12.5 mg PO DAILY SUZANNE Stop: 09/15/24 08:59 Last Admin: 08/16/24 08:07 Dose: 12.5 mg Atorvastatin Calcium (Atorvastatin 40 Mg Tab) 40 mg PO HS SUZANNE Stop: 09/14/24 20:59 Last Admin: 08/15/24 21:45 Dose: 40 mg Dextrose (Dextrose 50% 50 Ml Syringe) 25 - 50 ml IV UD PRN; Protocol PRN Reason: Hypoglycemia Protocol Stop: 09/14/24 21:01 Dorzolamide/Timolol (Dorzolamide/Timolol 22.3/6.8mg/Ml 10 Ml Btl) 1 drops OP BID SUZANNE Stop: 09/14/24 20:59 Last Admin: 08/16/24 08:06 Dose: 1 drops Famotidine (Famotidine 20 Mg Tab) 20 mg PO BID SUZANNE Stop: 09/14/24 20:59 Last Admin: 08/16/24 08:06 Dose: 20 mg Folic Acid (Folic Acid 1 Mg Tab) 1 mg PO DAILY SUZANNE Stop: 09/15/24 08:59 Last Admin: 08/16/24 08:10 Dose: 1 mg Glucagon (Glucagon For Inj 1 Mg Vial) 1 mg SQ UD PRN; Protocol PRN Reason: Hypoglycemia Protocol Stop: 09/14/24 21:01 Glucose (Glucose 40% Gel 15 Gm Tube) 15 - 30 gm PO UD PRN; Protocol PRN Reason: Hypoglycemia Protocol Stop: 09/14/24 21:01 Glucose (Glucose 10 Tab/Tube) 4 - 8 tab PO UD PRN; Protocol PRN Reason: Hypoglycemia Protocol Stop: 09/14/24 21:01 Heparin Sodium (Porcine) (Heparin Sod 5,000 Unit/0.5 Ml Vial) 5,000 units SQ Q12 SUZANNE Stop: 09/14/24 21:14 Last Admin: 08/16/24 08:06 Dose: 5,000 units Hydralazine HCl (Hydralazine Tab 50 Mg Tab) 50 mg PO QID SUZANNE Stop: 09/14/24 20:59 Last Admin: 08/16/24 08:07 Dose: 50 mg Cefepime HCl (Maxipime 2000mg) 1,000 mg in 10 mls @ 5 mls/min IV Q12H SUZANNE; Protocol Stop: 08/23/24 04:59 Last Admin: 08/16/24 05:09 Dose: 5 mls/min Insulin Aspart (Insulin Aspart Per Unit Charge) 0 units SC ACHS SUZANNE Stop: 09/14/24 21:14 Last Admin: 08/16/24 08:11 Dose: Not Given Magnesium Hydroxide (Magnesium Hydroxide Susp 30 Ml Udc) 30 ml PO Q12H PRN PRN Reason: Constipation Stop: 09/14/24 21:01 Miscellaneous (Carbohydrates For Hypoglycemia ) 15 - 30 gm PO UD PRN PRN Reason: Hypoglycemia Protocol Stop: 09/14/24 21:01 Netarsudil/Latanoprost (Netarsudil Mesylat/Latanoprost 37 Drops/2.5 Ml Btl) 1 drops OP HS [facility] Stop: 09/14/24 21:44 Ondansetron HCl (Ondansetron Inj 2 Mg/Ml 2 Ml Vial) 4 mg IV Q6H PRN PRN Reason: Nausea Stop: 09/14/24 21:01 Last Admin: 08/16/24 03:29 Dose: 4 mg Polyethylene Glycol (Polyethylene (Miralax) 17 Gm Pack) 17 gm PO DAILY PRN PRN Reason: Constipation Stop: 09/14/24 21:01 Vitamin D (Cholecalciferol 25 Mcg (1000 Units) Tab) 25 mcg PO DAILY SUZANNE Stop: 09/15/24 08:59 Last Admin: 08/16/24 08:07 Dose: 25 mcg
[2024-08-16] MEDS: NETARSUDIL MESYLAT/LATANOPROST 37 DROPS/2.5 ML BTL OP SCH (20:27)
[2024-08-17 07:12] LABS: BUN Creatinine Ratio 24.8 (10-20); Calcium 8.5 mg/dl (8.6-10.3); Creatinine Clr Calc Pharmacy 37.1 ml/min; Potassium 4.2 mmol/L (3.5-5.1)
--- NOTE | 2024-08-17 12:41 | Hospitalist Progress Note ---
Date of Service August 17, 2024 Assessment & Plan (1) Complicated UTI (urinary tract infection): Plan: 73 year old female with past medical history of DM Type II- non-insulin dependent, CKD Stage 3, hypertension, presents with low back pain, chills, fever, diaphoresis and headache. 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 Last pyelonephritis infection was one year ago, treated with cefepime with positive results. Complicated UTI Possible early pyelonephritis History of left ureteric stenosis status post stent placement in past and has had pyelonephritis before Cefepime initiated in the emergency department- continue Cefepime 1gm Q12H dosing with renal adjustment; Creat clearance 39.8ml/min today Dose adjust for change in Cr clearance Clinically much better and the back pain has improved Denies any fever and/or chills and no nausea no vomiting Will await cultures and continue the current antibiotic Urine culture is growing Klebsiella pneumoniae and the sensitivities pending She remains medically stable to be discharged Awaiting sensitivities Bradycardia/ Hypertension: BP elevated on admission 160's/70's; Goal 130/80 Continue home regimen amlodipine, atenolol, hydralazine Telemetry monitoring- did not show any significant bradycardia arrhythmias and heart rate remains low at 47 History of trivial tricuspid regurgitation 1 year ago- will re-eval valve functioning Echo of the heart showedmild concentric LVH, LV systolic function is normal with EF 60 to 65%, LV wall motion is normal, left atrium is mildly dilated and trace aortic regurgitation Remains bradycardic at 47 without any symptoms Diabetes Mellitus Type II: Insulin sliding scale for blood sugar management- Goal 110-140, Correction Factor 30, carb coverage 10 Accucheck ACHS Adjust insulin dosing as needed (2) CKD (chronic kidney disease) stage 3, GFR 30-59 ml/min: Plan: Kidney function has been normalized Will not give any intravenous fluid but the patient was advised to drink more fluid (3) Bradycardia: Plan: EKG showed normal sinus rhythm with a rate of 60/min Vital signs showed pulse rate of 47 at 11:38 AM (4) HTN (hypertension): (5) DM type 2 (diabetes mellitus, type 2): Plan DVT Ppx: Heparin Code status: Full PCP: Dr. Hernandez Dispo: Admit Med Surg Tele Admission and Anticipated Discharge Date Admission Date: August 15, 2024 Subjective 08/16/2024 The patient was seen and examined in medical telemetry unit She was admitted with low back pain mostly on the left side without any urinary symptoms Noted to have acute pyelonephritis and she has been feeling much better since admission Minimal pain at the left renal angle without any nausea or vomiting 08/17/2024 The patient was seen and examined in medical telemetry unit She has been feeling much better and her back pain is almost gone Denies any fever no chills and does not have any urinary symptoms Review of Systems Review of Systems: All systems reviewed and are unremarkable except as noted below Physical Exam Physical Exam: Sitting at the edge of the bed without any acute distress Constitutional: well developed, well nourished, + ill appearing and + obese Eyes: PERRL, conjunctivae normal, anicteric sclerae ENMT: external ear and nose normal, oropharynx normal Neck: trachea midline, no thyromegaly Respiratory: no respiratory distress Auscultation: lungs clear to auscultation bilaterally Cardiovascular: Rate/Rhythm: regular rate, regular rhythm and + bradycardic Heart Sounds: normal S1 and normal S2; no murmur Extremities: + edema (Trace edema bilaterally) Gastrointestinal (Abdomen): Inspection/Auscultation: normal bowel sounds; abdomen not distended Percussion/Palpation: abdomen soft; abdomen nontender ( Left renal angle) Neurologic: normal touch/pain/proprioception and moves all extremities; no focal motor deficits Lymphatic: no cervical or axillary lymphadenopathy Results & Data Results & Data Vital Signs (Past 12 Hours) Vital Signs Temp Pulse Pulse Resp BP BP Pulse Ox 08/17/24 11:50 36.8 C 47 L 20 150/73 H 97 08/17/24 07:47 36.9 C 53 L 18 128/64 94 08/17/24 07:14 48 L 08/17/24 04:14 36.9 C 54 L 18 137/67 96 O2 Del Method 08/17/24 11:50 Room Air 08/17/24 07:47 Room Air 08/17/24 07:14 08/17/24 04:14 Room Air Laboratory Results BMP 08/17/24 06:27 Sodium 138 Potassium 4.2 Chloride 108 H Carbon Dioxide 25 BUN 33 H Creatinine 1.33 H Glucose 113 H Calcium 8.5 L Medications Administered Current Inpatient Medications Acetaminophen (Acetaminophen 325 Mg Tab) 650 mg PO Q4H PRN PRN Reason: Pain or Fever Stop: 09/14/24 21:01 Last Admin: 08/16/24 03:32 Dose: 650 mg Al Hydrox/Mg Hydrox/Simethicone (Aluminum/Magnesium Susp 30 Ml Udc) 15 ml PO Q4H PRN PRN Reason: Dyspepsia Stop: 09/14/24 21:01 Amlodipine Besylate (Amlodipine Besylate 5 Mg Tab) 10 mg PO DAILY SUZANNE Stop: 09/15/24 08:59 Last Admin: 08/17/24 08:37 Dose: 10 mg Aspirin (Aspirin 81 Mg Ectab) 81 mg PO DAILY SUZANNE Stop: 09/15/24 08:59 Last Admin: 08/17/24 08:37 Dose: 81 mg Atenolol (Atenolol 25 Mg Tablet) 12.5 mg PO DAILY SUZANNE Stop: 09/15/24 08:59 Last Admin: 08/17/24 08:37 Dose: 12.5 mg Atorvastatin Calcium (Atorvastatin 40 Mg Tab) 40 mg PO HS SUZANNE Stop: 09/14/24 20:59 Last Admin: 08/16/24 20:27 Dose: 40 mg Dextrose (Dextrose 50% 50 Ml Syringe) 25 - 50 ml IV UD PRN; Protocol PRN Reason: Hypoglycemia Protocol Stop: 09/14/24 21:01 Dorzolamide/Timolol (Dorzolamide/Timolol 22.3/6.8mg/Ml 10 Ml Btl) 1 drops OP B ID SUZANNE Stop: 09/14/24 20:59 Last Admin: 08/17/24 08:37 Dose: 1 drops Famotidine (Famotidine 20 Mg Tab) 20 mg PO BID SUZANNE Stop: 09/14/24 20:59 Last Admin: 08/17/24 08:37 Dose: 20 mg Folic Acid (Folic Acid 1 Mg Tab) 1 mg PO DAILY SUZANNE Stop: 09/15/24 08:59 Last Admin: 08/17/24 08:37 Dose: 1 mg Glucagon (Glucagon For Inj 1 Mg Vial) 1 mg SQ UD PRN; Protocol PRN Reason: Hypoglycemia Protocol Stop: 09/14/24 21:01 Glucose (Glucose 40% Gel 15 Gm Tube) 15 - 30 gm PO UD PRN; Protocol PRN Reason: Hypoglycemia Protocol Stop: 09/14/24 21:01 Glucose (Glucose 10 Tab/Tube) 4 - 8 tab PO UD PRN; Protocol PRN Reason: Hypoglycemia Protocol Stop: 09/14/24 21:01 Heparin Sodium (Porcine) (Heparin Sod 5,000 Unit/0.5 Ml Vial) 5,000 units SQ Q12 SUZANNE Stop: 09/14/24 21:14 Last Admin: 08/17/24 08:38 Dose: 5,000 units Hydralazine HCl (Hydralazine Tab 50 Mg Tab) 50 mg PO QID SUZANNE Stop: 09/14/24 20:59 Last Admin: 08/17/24 12:06 Dose: 50 mg Cefepime HCl (Maxipime 2000mg) 1,000 mg in 10 mls @ 5 mls/min IV Q12H SUZANNE; Protocol Stop: 08/23/24 04:59 Last Admin: 08/17/24 04:49 Dose: 5 mls/min Insulin Aspart (Insulin Aspart Per Unit Charge) 0 units SC ACHS SUZANNE Stop: 09/14/24 21:14 Last Admin: 08/17/24 08:50 Dose: 5 units Magnesium Hydroxide (Magnesium Hydroxide Susp 30 Ml Udc) 30 ml PO Q12H PRN PRN Reason: Constipation Stop: 09/14/24 21:01 Miscellaneous (Carbohydrates For Hypoglycemia ) 15 - 30 gm PO UD PRN PRN Reason: Hypoglycemia Protocol Stop: 09/14/24 21:01 Netarsudil/Latanoprost (Netarsudil Mesylat/Latanoprost 37 Drops/2.5 Ml Btl) 1 drops OP HS [facility] Stop: 09/14/24 21:44 Last Admin: 08/16/24 20:27 Dose: 1 drops Ondansetron HCl (Ondansetron Inj 2 Mg/Ml 2 Ml Vial) 4 mg IV Q6H PRN PRN Reason: Nausea Stop: 09/14/24 21:01 Last Admin: 08/16/24 03:29 Dose: 4 mg Polyethylene Glycol (Polyethylene (Miralax) 17 Gm Pack) 17 gm PO DAILY PRN PRN Reason: Constipation Stop: 09/14/24 21:01 Vitamin D (Cholecalciferol 25 Mcg (1000 Units) Tab) 25 mcg PO DAILY SUZANNE Stop: 09/15/24 08:59 Last Admin: 08/17/24 08:37 Dose: 25 mcg
--- NOTE | 2024-08-18 10:29 | Hospitalist Progress Note ---
Date of Service August 18, 2024 Assessment & Plan (1) Complicated UTI (urinary tract infection): Plan: 73 year old female with past medical history of DM Type II- non-insulin dependent, CKD Stage 3, hypertension, presents with low back pain, chills, fever, diaphoresis and headache. 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 Last pyelonephritis infection was one year ago, treated with cefepime with positive results. Complicated UTI Possible early pyelonephritis History of left ureteric stenosis status post stent placement in past and has had pyelonephritis before Cefepime initiated in the emergency department- continue Cefepime 1gm Q12H dosing with renal adjustment; Creat clearance 39.8ml/min today Dose adjust for change in Cr clearance Clinically much better and the back pain has improved Denies any fever and/or chills and no nausea no vomiting Will await cultures and continue the current antibiotic Urine culture is growing Klebsiella pneumoniae and the sensitivities pending She remains medically stable to be discharged Sensitivity came back as pansensitive She will be given Keflex and will continue for a total of 10 days Bradycardia/ Hypertension: BP elevated on admission 160's/70's; Goal 130/80 Continue home regimen amlodipine, atenolol, hydralazine Telemetry monitoring- did not show any significant bradycardia arrhythmias and heart rate remains low at 47 History of trivial tricuspid regurgitation 1 year ago- will re-eval valve functioning Echo of the heart showedmild concentric LVH, LV systolic function is normal with EF 60 to 65%, LV wall motion is normal, left atrium is mildly dilated and trace aortic regurgitation Remains bradycardic at 47 without any symptoms Heart rate remains stable at 56 and the blood pressure is maintained She will be discharged today Diabetes Mellitus Type II: Insulin sliding scale for blood sugar management- Goal 110-140, Correction Factor 30, carb coverage 10 Accucheck ACHS Adjust insulin dosing as needed (2) CKD (chronic kidney disease) stage 3, GFR 30-59 ml/min: Plan: Kidney function has been normalized Will not give any intravenous fluid but the patient was advised to drink more fluid (3) Bradycardia: Plan: EKG showed normal sinus rhythm with a rate of 60/min Vital signs showed pulse rate of 47 at 11:38 AM (4) HTN (hypertension): (5) DM type 2 (diabetes mellitus, type 2): Plan DVT Ppx: Heparin Code status: Full PCP: Dr. Hernandez Dispo: Admit Med Surg Tele She already has the appointment with her PCP Admission and Anticipated Discharge Date Admission Date: August 15, 2024 Subjective 08/16/2024 The patient was seen and examined in medical telemetry unit She was admitted with low back pain mostly on the left side without any urinary symptoms Noted to have acute pyelonephritis and she has been feeling much better since admission Minimal pain at the left renal angle without any nausea or vomiting 08/17/2024 The patient was seen and examined in medical telemetry unit She has been feeling much better and her back pain is almost gone Denies any fever no chills and does not have any urinary symptoms 08/18/2024 The patient was seen and examined in medical telemetry unit She has been feeling much better Denies any back pain, or any urinary symptoms She will be discharged home this afternoon Review of Systems Review of Systems: All systems reviewed and are unremarkable except as noted below Physical Exam Physical Exam: Sitting at the edge of the bed without any acute distress Constitutional: well developed, well nourished, + ill appearing and + obese Eyes: PERRL, conjunctivae normal, anicteric sclerae ENMT: external ear and nose normal, oropharynx normal Neck: trachea midline, no thyromegaly Respiratory: no respiratory distress Auscultation: lungs clear to auscultation bilaterally Cardiovascular: Rate/Rhythm: regular rate, regular rhythm and + bradycardic Heart Sounds: normal S1 and normal S2; no murmur Extremities: + edema (Trace edema bilaterally) Gastrointestinal (Abdomen): Inspection/Auscultation: normal bowel sounds; abdomen not distended Percussion/Palpation: abdomen soft; abdomen nontender ( Left renal angle) Musculoskeletal: No acute arthritis involving any of the joint Neurologic: normal touch/pain/proprioception and moves all extremities; no focal motor deficits Lymphatic: no cervical or axillary lymphadenopathy Results & Data Results & Data Vital Signs (Past 12 Hours) Vital Signs Temp Pulse Pulse Resp BP BP Pulse Ox 08/18/24 07:36 36.8 C 56 L 17 161/74 H 96 08/18/24 02:52 37.2 C 53 L 18 143/75 H 95 08/17/24 22:36 37.1 C 68 18 152/77 H 94 O2 Del Method 08/18/24 07:36 Room Air 08/18/24 02:52 Room Air 08/17/24 22:36 Room Air Medications Administered Current Inpatient Medications Acetaminophen (Acetaminophen 325 Mg Tab) 650 mg PO Q4H PRN PRN Reason: Pain or Fever Stop: 09/14/24 21:01 Last Admin: 08/16/24 03:32 Dose: 650 mg Al Hydrox/Mg Hydrox/Simethicone (Aluminum/Magnesium Susp 30 Ml Udc) 15 ml PO Q4H PRN PRN Reason: Dyspepsia Stop: 09/14/24 21:01 Amlodipine Besylate (Amlodipine Besylate 5 Mg Tab) 10 mg PO DAILY SUZANNE Stop: 09/15/24 08:59 Last Admin: 08/18/24 08:04 Dose: 10 mg Aspirin (Aspirin 81 Mg Ectab) 81 mg PO DAILY SUZANNE Stop: 09/15/24 08:59 Last Admin: 08/18/24 08:04 Dose: 81 mg Atenolol (Atenolol 25 Mg Tablet) 12.5 mg PO DAILY SUZANNE Stop: 09/15/24 08:59 Last Admin: 08/18/24 08:04 Dose: 12.5 mg Atorvastatin Calcium (Atorvastatin 40 Mg Tab) 40 mg PO HS SUZANNE Stop: 09/14/24 20:59 Last Admin: 08/17/24 20:02 Dose: 40 mg Dextrose (Dextrose 50% 50 Ml Syringe) 25 - 50 ml IV UD PRN; Protocol PRN Reason: Hypoglycemia Protocol Stop: 09/14/24 21:01 Dorzolamide/Timolol (Dorzolamide/Timolol 22.3/6.8mg/Ml 10 Ml Btl) 1 drops OP BID SUZANNE Stop: 09/14/24 20:59 Last Admin: 08/18/24 08:05 Dose: 1 drops Famotidine (Famotidine 20 Mg Tab) 20 mg PO BID SUZANNE Stop: 09/14/24 20:59 Last Admin: 08/18/24 08:03 Dose: 20 mg Folic Acid (Folic Acid 1 Mg Tab) 1 mg PO DAILY SUZANNE Stop: 09/15/24 08:59 Last Admin: 08/18/24 08:05 Dose: 1 mg Glucagon (Glucagon For Inj 1 Mg Vial) 1 mg SQ UD PRN; Protocol PRN Reason: Hypoglycemia Protocol Stop: 09/14/24 21:01 Glucose (Glucose 40% Gel 15 Gm Tube) 15 - 30 gm PO UD PRN; Protocol PRN Reason: Hypoglycemia Protocol Stop: 09/14/24 21:01 Glucose (Glucose 10 Tab/Tube) 4 - 8 tab PO UD PRN; Protocol PRN Reason: Hypoglycemia Protocol Stop: 09/14/24 21:01 Heparin Sodium (Porcine) (Heparin Sod 5,000 Unit/0.5 Ml Vial) 5,000 units SQ Q12 SUZANNE Stop: 09/14/24 21:14 Last Admin: 08/18/24 08:03 Dose: 5,000 units Hydralazine HCl (Hydralazine Tab 50 Mg Tab) 50 mg PO QID SUZANNE Stop: 09/14/24 20:59 Last Admin: 08/18/24 08:04 Dose: 50 mg Cefepime HCl (Maxipime 2000mg) 1,000 mg in 10 mls @ 5 mls/min IV Q12H SUZANNE; Protocol Stop: 08/23/24 04:59 Last Admin: 08/18/24 04:21 Dose: 5 mls/min Insulin Aspart (Insulin Aspart Per Unit Charge) 0 units SC ACHS SUZANNE Stop: 09/14/24 21:14 Last Admin: 08/18/24 08:54 Dose: 5 units Magnesium Hydroxide (Magnesium Hydroxide Susp 30 Ml Udc) 30 ml PO Q12H PRN PRN Reason: Constipation Stop: 09/14/24 21:01 Miscellaneous (Carbohydrates For Hypoglycemia ) 15 - 30 gm PO UD PRN PRN Reason: Hypoglycemia Protocol Stop: 09/14/24 21:01 Netarsudil/Latanoprost (Netarsudil Mesylat/Latanoprost 37 Drops/2.5 Ml Btl) 1 drops OP HS SUZANNE Stop: 09/14/24 21:44 Last Admin: 08/17/24 20:02 Dose: 1 drops Ondansetron HCl (Ondansetron Inj 2 Mg/Ml 2 Ml Vial) 4 mg IV Q6H PRN PRN Reason: Nausea Stop: 09/14/24 21:01 Last Admin: 08/16/24 03:29 Dose: 4 mg Polyethylene Glycol (Polyethylene (Miralax) 17 Gm Pack) 17 gm PO DAILY PRN PRN Reason: Constipation Stop: 09/14/24 21:01 Vitamin D (Cholecalciferol 25 Mcg (1000 Units) Tab) 25 mcg PO DAILY SUZANNE Stop: 09/15/24 08:59 Last Admin: 08/18/24 08:04 Dose: 25 mcg
--- NOTE | 2024-08-18 12:18 | Electrocardiogram Report ---
Test Reason : Blood Pressure : */* mmHG Vent. Rate : 60 BPM Atrial Rate : 60 BPM P-R Int : 180 ms QRS Dur : 78 ms QT Int : 386 ms P-R-T Axes : 60 -18 56 degrees QTcB Int : 386 ms Normal sinus rhythm Possible Anterior infarct , age undetermined Abnormal ECG When compared with ECG of 06-Aug-2023 08:56, No significant change was found Confirmed by Jamaal Jade ([id number]) on 08/18/2024 12:18:13 PM Referred By: REFERRED SELF Confirmed By: Jamaal Jade
[2024-08-18 12:33] VITALS: BP 144/74; PULSE 52; RESP 15; TEMP 98.1; O2SAT 95
[2024-08-18] MEDS: cephALEXin 500 MG CAP PO SCH (12:57)
--- NOTE | 2024-08-18 15:28 | Discharge Summary ---
Date of Service August 18, 2024 Admission HPI Per Admitting Provider 73 year old female with past medical history of DM Type II- non-insulin dependent, CKD Stage 3, hypertension, presents with low back pain, chills, fever, diaphoresis and headache. 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 Last pyelonephritis infection was one year ago, treated with cefepime with positive results. She denied dizziness, chest pain, palpitations, falls, N/V/D, dysuria, joint pain or swelling, skin rashes, cold symptoms, bleeding to the gums or urine, cognitive changes. In the emergency department, she was hemodynamically stable with no evidence of leukocytosis. Lactate 1.1, Procalcitonin 0.73. Renal functioning ok with Creatinine 1.26 (baseline per external chart review 1.2-1.5). Urine analysis showing protein, ketones, nitrites, leukocytes, 4+ bacteria. Multiple drug allergies- Cefepime initiated. Last pyelo infection from 07/2023 positive enterobacter cloacae and citrobacter freundii. Additional workup included a chest Xray showing no acute findings. Abdominal and pelvic CT showing no renal or proximal ureteral calculi are seen; no hydronephrosis or perinephric stranding; no definite renal mass lesion is identified. She reported some mild epigastric pain in the ED with EKG showing NSR with vent rate 60, QTc 386. Troponin negative. Per external chart review, the patient was seen on 07/29 at Nephrology and had concerns with a developing UTI. Urine test was contaminated with skin cells, no treatment at time of appointment but was recommended to f/u with PCP if ongoing issues. At the same appointment, the patient had asymptomatic bradycardia with heart rate in the 40's. Atenolol dosing was thought to be contributing and consequently lowered. Hydralazine QID dosing started for BP management. Outpatient echocardiogram was ordered; previous echocardiogram on 05/2023 showing trivial tricuspid regurgitation, LV ejection fraction 55-59%, LV wall motion normal, LV diastolic function normal, no pulmonary hypertension, no pericardial effusion. History was obtained primarily from the patient, external chart review, and previous hospital records in [facility]. Admission Exam Per Admitting Provider Physical Exam: VITALS: Reviewed. WEIGHT/BMI reviewed. GEN: Healthy appearing, well-developed, NAD. PSYCH: Good Judgment. AOx3. Normal memory, mood, and affect. HEENT -Head: NC/AT; -Eyes: PERRL, EOMI. No discharge or redn ess; -Ears: External ears are normal. Normal TMs. -Nose: Normal nares. -Mouth and throat: MMM. Normal gums, muc matthew, palate,. Good dentition. NECK: Supple, with no masses. CV: Heart rate 60's, rhythm regular, +systolic murmur, no carotid bruits, no swelling, peripheral pulses strong. LUNGS: CTAB, no w/r/c. ABD: Soft, NT/ND, NBS, no masses or organomegaly. : +CVA tenderness to left side SKIN: Warm, well perfused. No skin rashes or abnormal lesions. MSK: No apparent deformities. EXT: No clubbing, cyanosis, or edema. NEURO: Ambulating with no limitations. + tremor bilaterally, Normal muscle strength and tone. No focal deficits. Principal Diagnosis Acute pyelonephritis,Complicated UTI Discharge Exam Sitting at the edge of the bed without any acute distress Constitutional well developed, well nourished, + ill appearing and + obese Eyes PERRL, conjunctivae normal, anicteric sclerae ENMT external ear and nose normal, oropharynx normal Neck trachea midline, no thyromegaly Respiratory no respiratory distress Auscultation: lungs clear to auscultation bilaterally Cardiovascular Rate/Rhythm: regular rate, regular rhythm and + bradycardic Heart Sounds: normal S1 and normal S2; no murmur Extremities: + edema (Trace edema bilaterally) Gastrointestinal (Abdomen) Inspection/Auscultation: normal bowel sounds; abdomen not distended Percussion/Palpation: abdomen soft; abdomen nontender ( Left renal angle) Neurologic normal touch/pain/proprioception and moves all extremities; no focal motor deficits Lymphatic no cervical or axillary lymphadenopathy Discharge Data Allergies Allergy/AdvReac Type Severity Reaction Status Date / Time bee venom protein (honey bee) Allergy Severe SWELLING Verified 05/10/23 13:31 AT SITE, HARD TO BREATHE Sulfa (Sulfonamide Allergy Severe From a b/p Verified 05/10/23 13:31 Antibiotics) med (told never take sulfa), RASH Cipro Allergy Unknown 0 Verified 08/27/17 01:28 ciprofloxacin [Cipro] Allergy Unknown 0 Verified 05/10/23 13:31 nitrofurantoin AdvReac Vomiting Verified 05/10/23 13:31 [From Macrobid] Consultations 08/15/24 17:38 ED Decision to Admit Stat Ordered Studies 08/15/24 16:17 CT abd pelvis wo con Stat Hospital Course (1) Complicated UTI (urinary tract infection): 73 year old female with past medical history of DM Type II- non-insulin dependent, CKD Stage 3, hypertension, presents with low back pain, chills, fever, diaphoresis and headache. 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 Last pyelonephritis infection was one year ago, treated with cefepime with positive results. Complicated UTI Possible early pyelonephritis History of left ureteric stenosis status post stent placement in past and has had pyelonephritis before Cefepime initiated in the emergency department- continue Cefepime 1gm Q12H dosing with renal adjustment; Creat clearance 39.8ml/min today Dose adjust for change in Cr clearance Clinically much better and the back pain has improved Denies any fever and/or chills and no nausea no vomiting Will await cultures and continue the current antibiotic Urine culture is growing Klebsiella pneumoniae and the sensitivities pending She remains medically stable to be discharged Sensitivity came back as pansensitive She will be given Keflex and will continue for a total of 10 days Bradycardia/ Hypertension: BP elevated on admission 160's/70's; Goal 130/80 Continue home regimen amlodipine, atenolol, hydralazine Telemetry monitoring- did not show any significant bradycardia arrhythmias and heart rate remains low at 47 History of trivial tricuspid regurgitation 1 year ago- will re-eval valve functioning Echo of the heart showedmild concentric LVH, LV systolic function is normal with EF 60 to 65%, LV wall motion is normal, left atrium is mildly dilated and trace aortic regurgitation Remains bradycardic at 47 without any symptoms Heart rate remains stable at 56 and the blood pressure is maintained She will be discharged today Diabetes Mellitus Type II: Insulin sliding scale for blood sugar management- Goal 110-140, Correction Factor 30, carb coverage 10 Accucheck ACHS Adjust insulin dosing as needed (2) CKD (chronic kidney disease) stage 3, GFR 30-59 ml/min: Kidney function has been normalized Will not give any intravenous fluid but the patient was advised to drink more fluid (3) Bradycardia: EKG showed normal sinus rhythm with a rate of 60/min Vital signs showed pulse rate of 47 at 11:38 AM (4) HTN (hypertension): (5) DM type 2 (diabetes mellitus, type 2): Plan DVT Ppx: Heparin Code status: Full PCP: Dr. Hernandez Dispo: Admit Med Surg Tele She already has the appointment with her PCP Total Time Total Time Spent Total Time Spent (In Minutes): 35 Minutes Discharge Plan Discharge Items Patient Disposition: Home - Self-Care Reason For Visit: PYELONEPHRITIS Discharge Diagnosis: Acute pyelonephritis,Complicated UTI Condition on Discharge: Good Activity: Resume your previous activity Non-emergency contact: Primary Care Provider Call non-emergency contact if: you have any medication questions and your symptoms worsen Follow-up/Referrals: Ghislaine Hernandez DO [Primary Care Provider] - (Date & Time 08/26/2024 9:20 AM Provider: Ghislaine Hernandez DO [facility] ) Diet: Carb Consistent or DM2 Addtl Attending Provider Instructions: Please take precautions to avoid falls Drink more fluid Finish the course of antibiotic as advised Please keep appointments with your healthcare provider Pending Studies at Discharge: No Stand-Alone Forms: My [employer], Smoking Cessation Medications and DC Order Prescriptions: New cephalexin 500 mg Capsule 500 mg PO QID Qty: 18 0RF Continued atorvastatin 40 mg tablet 40 mg PO HS atenolol 25 mg tablet 12.5 mg PO DAILY amlodipine 10 mg tablet 10 mg PO DAILY folic acid 1 mg tablet 1 mg PO DAILY glipizide 5 mg tablet 2.5 mg PO DAILY dorzolamide 2 % drops 1 drp OPB UD Rx Instructions: 1 drp opb bid. last filled 03/26/24 75 day supply Rocklatan 0.02-0.005 % drops 1 drp OPB UD Rx Instructions: 1 drp opb hs. last filled 02/28 56 day supply Vabysmo 6 mg/0.05 mL Solution 6 mg INTRAVITREAL UD PRN (Reason: ..) Rx Instructions: 6mg itravitreal as directed prn. no fill history unable to verify aspirin 81 mg Tablet,Delayed Release (Dr/Ec) 81 mg PO DAILY Rx Instructions: otc unable to verify metformin 500 mg tablet extended release 24 hr 500 mg PO DAILYBD cholecalciferol (vitamin D3) [Vitamin D3] 25 mcg (1,000 unit) Tablet 25 mcg PO DAILY Rx Instructions: otc unable to verify brimonidine-timolol 0.2-0.5 % Drops 1 drp OPHTHALMIC (EYE) UD Rx Instructions: 1 drp eye bid. No fill history unable to verify epinephrine [EpiPen 2-Maxi] 0.3 mg/0.3 mL auto-injector 0.3 mg IM UD PRN (Reason: anaphylaxis) Qty: 2 0RF Rx Instructions: no fill history unable to verify famotidine 20 mg tablet 20 mg PO BID Qty: 14 0RF cetirizine 10 mg tablet 10 mg PO DAILY Qty: 7 0RF Rx Instructions: otc unable to verify dorzolamide-timolol 22.3-6.8 mg/mL drops 1 drp ophthalmic (eye) BID hydralazine 50 mg Tablet 50 mg PO QID Discharge Orders: Discharge Order (Routine); Ordered 08/18/24 Ordered By: Karime Bosch Admission Data Admit Date/Time: 08/15/24 18:35 Attending Provider: Karime Bosch Admit Provider: Lizeth Fleming I. Primary Care Provider: Ghislaine Hernandez Other Providers: Lizeth Fleming I. Other Interventions: Discharge Summary Assessment (RN) Last Done: 08/18/24 12:19
== END 2024-08-18 13:51 | disposition home or self-care (01) | DRG 690 ==
LOC: ED 14:55 → 2N 18:35 → SUATTDRO 18:35 → 2N 20:48